=== PATIENT | female | born 1955 | race Caucasian/White ===

== ENCOUNTER 2017-03-28 16:11 | Inpatient (IN) | payer BC ==
[2017-03-28] MEDS ORDERED: NITROGLYCERIN OINT 1 INCH/GM PACKET TOPICAL STA (16:25)
[2017-03-28] MEDS ORDERED: ASPIRIN 81 MG CHEW PO STA (16:25)
--- NOTE | 2017-03-28 16:36 | ED ---
Chest Pain HPI - General Chief Complaint: Chest Pain Stated Complaint: chest pain Time Seen by Provider: 03/28/17 16:14 Source: patient, EMS Mode of arrival: EMS Limitations: no limitations - History of Present Illness Initial Comments: This 61-year-old white female presents with a complaint of some chest pain. This was in the midsternal to lower sternal region and described as a burning type sensation that radiated to both shoulders. She states that she was very clammy when it occurred but there is no shortness of breath or palpitations. She apparently was undergoing some physical therapy when this occurred. She was not exerting herself whatsoever. It also occurred one week ago while at primary care physician's office. She just had a stress test approximately one week ago with unknown results. She is scheduled to have a echocardiogram done tomorrow. She denies any leg pain or swelling or history of DVT or PE. She denies any known previous cardiac disease, coronary artery disease, myocardial infarction, or cardiac stents. She's never had a heart catheterization. She denies any other complaints or modifying factors. Her symptoms have resolved at this point in time. - Related Data Home Medications Medication Instructions Recorded Confirmed DULoxetine HCL [Duloxetine HCl] 60 mg PO HS 08/19/14 03/28/17 Metoprolol Succinate [Toprol XL] 12.5 mg PO BID 08/19/14 03/28/17 Ergocalciferol [Vitamin D2 50,000 unit PO MO 03/23/15 03/28/17 (DRISDOL)] Acamprosate Calcium [Campral] 333 mg PO TID 03/28/17 03/28/17 Diphenox-Atrop 2.5-0.025 mg 1 tab PO BID PRN 03/28/17 03/28/17 [Lomotil] Famotidine [Pepcid] 20 mg PO DAILY 03/28/17 03/28/17 Gabapentin 800 mg PO TID 03/28/17 03/28/17 Losartan Unknown Dose 1 tab PO DAILY 03/28/17 03/28/17 Previous Rx's Medication Instructions Recorded Cyclobenzaprine [Flexeril] 10 mg PO TID PRN #90 tab 03/31/15 Allergies Allergy/AdvReac Type Severity Reaction Status Date / Time MRI CONTRAST AdvReac FLUSHING Uncoded 03/28/17 16:25 Review of Systems ROS Statement: Those systems with pertinent positive or pertinent negative responses have been documented in the HPI. ROS Other: All systems not noted in ROS Statement are negative. Past Medical History Past Medical History: Chest Pain / Angina, CVA/TIA, GERD/Reflux Additional Past Medical History / Comment(s): "DUMPING SYNDROME" URINARY INCONTINENCE, STATES TIA X3 History of Any Multi-Drug Resistant Organisms: None Reported Past Surgical History: Bariatric Surgery, Hysterectomy Additional Past Surgical History / Comment(s): HX GASTRIC BYPASS, PAIN CLINIC PROCEDURE Past Anesthesia/Blood Transfusion Reactions: No Reported Reaction Additional Past Anesthesia/Blood Transfusion Reaction / Comment(s): REQUIRE ABOVE AVERAGE LIDOCAINE DOSE. Past Psychological History: No Psychological Hx Reported Smoking Status: Never smoker Past Alcohol Use History: Occasional Past Drug Use History: None Reported - Past Family History Father Family Medical History: Diabetes Mellitus, Myocardial Infarction ([place]) Mother Family Medical History: Myocardial Infarction ([place]) General Exam - General Exam Comments Initial Comments: GENERAL: The patient is well nourished and well hydrated. VITAL SIGNS: Heart rate, blood pressure, respiratory rate reviewed as recorded in nurse's notes. EYES: Pupils are round and reactive. Extraocular movements are intact. No conjunctival / lid redness or swelling. ENT: No external evidence of injury, swelling, or ecchymosis. Airway is patent. Throat is clear. NECK: Nontender. No swelling or evidence of injury. No subcutaneous emphysema. Trachea is midline. No thyroid mass. HEART: Regular rate and rhythm. Good peripheral pulses. There is no leg pain, swelling, or edema. LUNGS/CHEST: Breath sounds clear and equal bilaterally. No rales, rhonchi, or wheezes. No ecchymosis, subcutaneous emphysema, or tenderness. ABDOMEN: Abdomen soft without tenderness. No palpable masses or organomegaly. No peritoneal signs. No abdominal wall swelling or ecchymosis. EXTREMITIES: No extremity tenderness. Normal muscle tone and function. No thoracolumbar tenderness. NEUROLOGIC: Sensation is grossly intact. Cranial nerve exam reveals face is symmetrical, tongue is midline, speech is clear. SKIN: No abrasions or ecchymosis is noted. No induration or masses noted. PSYCHIATRIC: Alert and oriented. Appropriate behavior and judgment. Limitations: no limitations Course Vital Signs 03/28/17 03/28/17 03/28/17 16:22 16:37 17:13 Temperature 98.8 F Pulse Rate 78 71 71 Respiratory 18 16 18 Rate Blood Pressure 144/88 144/88 152/86 O2 Sat by Pulse 98 100 100 Oximetry Chest Pain MDM - MDM The patient was seen and examined. All diagnostics were reviewed. The EKG shows a normal sinus rhythm at a rate of 72. There is no acute ST-T wave changes identified. The [place] interval is 116, QRS duration is 78, and the QTc interval is 411. She does receive aspirin as well as Nitropaste. She is feeling well on recheck. She states that she is hungry and is fed. The blood sugar was slightly low at 72 and she states that she had not ate anything for the entire day. The remainder of labs are unremarkable. The x-ray does not show any acute process. Is felt as though she benefit from admission to rule out the possibility of acute coronary syndrome. She is agreeable with this plan. Case will be discussed with internal medicine in the near future. Disposition Clinical Impression: Chest pain, Unstable angina Disposition: ADMITTED IP TO THIS [facility] Condition: Fair Time of Disposition: 18:00 Decision Date: 03/28/17 Decision Time: 18:00
[2017-03-28 16:50] LABS: Basophils % (A) 0 %; CH 33.4; CHCM 32.3; Eosinophils # (A) 0.2 k/uL (0-0.7); Eosinophils % (A) 2 %; HCT 41.8 % (34.0-46.0); HDW 1.81; HGB 13.6 gm/dL (11.4-16.0); Luc # (Auto) 0.13; Luc % (Auto) 2; Lymphocytes # (A) 1.3 k/uL (1.0-4.8); Lymphocytes % (A) 15 %; MCH 33.8 pg (25.0-35.0); MCHC 32.5 g/dL (31.0-37.0); MCV 103.7 fL (80.0-100.0); Macrocytosis Moderate; Monocytes # (A) 0.4 k/uL (0-1.0); Monocytes % (A) 5 %; Neutrophils # (A) 6.9 k/uL (1.3-7.7); Neutrophils % (A) 77 %; RBC 4.03 m/uL (3.80-5.40); RDW 15.5 % (11.5-15.5); WBC 8.9 k/uL (3.8-10.6); WBC (Perox) 8.89
[2017-03-28 16:57] LABS: ALT 42 U/L (9-52); AST 41 U/L (14-36); Alkaline Phosphatase 154 U/L (38-126); Anion Gap 6 mmol/L; Blood Urea Nitrogen 14 mg/dL (7-17); Calcium 8.9 mg/dL (8.4-10.2); Carbon Dioxide 30 mmol/L (22-30); Chloride 104 mmol/L (98-107); Glucose 72 mg/dL (74-99); Non-African American GFR(MDRD) >60 (>60 ml/min/1.73 sqM); Potassium 4.8 mmol/L (3.5-5.1); Sodium 140 mmol/L (137-145); Total Bilirubin 0.8 mg/dL (0.2-1.3); Total Protein 6.5 g/dL (6.3-8.2)
[2017-03-28 16:58] LABS: Prothrombin Time 9.8 sec (9.0-12.0)
[2017-03-28 17:05] LABS: Partial Thromboplastin Time 21.3 sec (22.0-30.0)
--- NOTE | 2017-03-28 17:08 | XR ---
EXAMINATION TYPE: XR chest 2V DATE OF EXAM: 03/28/2017 COMPARISON: 03/20/2015 HISTORY: Chest pain TECHNIQUE: Frontal and lateral views of the chest are obtained. FINDINGS: Heart and mediastinum are within normal limits. Lungs are clear of consolidation. There ar e no hilar masses. There is no pleural effusion. There are chest leads. IMPRESSION: No active cardiopulmonary disease. No change.
[2017-03-28 17:13] LABS: Creatine Kinase 49 U/L (30-135)
[2017-03-28 17:26] LABS: Creatine Kinase MB 1.2 ng/mL (0.0-2.4); Troponin I <0.012 ng/mL (0.000-0.034)
[2017-03-28] MEDS ORDERED: HEPARIN SODIUM,PORCINE 5,000 UNIT/ML 1 ML VIAL IV PRN (18:02)
[2017-03-28] MEDS ORDERED: HEPARIN SODIUM,PORCINE 5,000 UNIT/ML 1 ML VIAL IV ONE (18:02)
[2017-03-28] MEDS ORDERED: NITROGLYCERIN SL TABS 0.4 MG TAB SUBLINGUAL PRN (18:02)
[2017-03-28] MEDS ORDERED: DIPHENOX-ATROP 2.5-0.025 MG 1 EACH TAB PO PRN (18:05)
[2017-03-28] MEDS ORDERED: HEPARIN SODIUM,PORCINE/D5W PMX 25,000 UNIT in DEXTROSE/WATER 1 500ML.BAG IV SCH (18:15)
[2017-03-28 20:13] VITALS: BMI 32.8
[2017-03-28] MEDS: DULoxetine HCL 60 MG CAPSULE.DR PO SCH (21:21)
[2017-03-28] MEDS: METOPROLOL SUCCINATE (ER) 25 MG TAB.ER.24H PO SCH (21:22)
[2017-03-28] MEDS: GABAPENTIN 400 MG CAP PO SCH (21:23)
[2017-03-28] MEDS: CYCLOBENZAPRINE 10 MG TAB PO PRN (21:23)
[2017-03-28] MEDS: ACAMPROSATE CALCIUM 333 MG TABLET.DR PO SCH (22:22)
[2017-03-29 00:53] LABS: Creatine Kinase 33 U/L (30-135)
[2017-03-29 01:06] LABS: Creatine Kinase MB 0.8 ng/mL (0.0-2.4); Troponin I <0.012 ng/mL (0.000-0.034)
[2017-03-29] MEDS: NITROGLYCERIN OINT 1 INCH/GM PACKET TOPICAL SCH ×4 (01:19→18:21)
[2017-03-29 05:06] LABS: Mean Platelet Volume 7.7
[2017-03-29 05:26] LABS: Creatine Kinase 29 U/L (30-135)
[2017-03-29 05:39] LABS: Creatine Kinase MB 0.8 ng/mL (0.0-2.4); Troponin I <0.012 ng/mL (0.000-0.034)
[2017-03-29 07:02] LABS: Cholesterol 226 mg/dL (<200); Triglycerides 80 mg/dL (<150)
[2017-03-29 07:09] LABS: HDL Cholesterol 166 mg/dL (40-60)
[2017-03-29] MEDS: ACAMPROSATE CALCIUM 333 MG TABLET.DR PO SCH ×3 (08:46→22:15)
[2017-03-29] MEDS: GABAPENTIN 400 MG CAP PO SCH ×3 (08:46→21:25)
[2017-03-29] MEDS ORDERED: FAMOTIDINE 20 MG TAB PO SCH (09:00)
[2017-03-29] MEDS ORDERED: ASPIRIN 325 MG TAB PO SCH (09:00)
[2017-03-29] MEDS: METOPROLOL SUCCINATE (ER) 25 MG TAB.ER.24H PO SCH ×2 (09:51→21:24)
--- NOTE | 2017-03-29 10:16 | ECHOF ---
Referral Reason: MEASUREMENTS -------- HEIGHT: 162.6 cm WEIGHT: 83.9 kg BP: IVSd: 1.1 cm (0.6 - 1.1) LVIDd: 4.3 cm (3.9 - 5.3) LVPWd: 0.9 cm (0.6 - 1.1) IVSs: 1.4 cm LVIDs: 3.3 cm LVPWs: 1.2 cm LAESV Index (A-L): 55.28 ml/m Ao Diam: 2.8 cm (2.0 - 3.7) AV Cusp: 1.8 cm (1.5 - 2.6) LA Diam: 4.3 cm (2.7 - 3.8) MV EXCURSION: 18.742 mm (> 18.000) MV EF SLOPE: 95 mm/s (70 - 150) EPSS: 0.4 cm MV E Ubaldo: 0.94 m/s MV DecT: 165 ms MV A Ubaldo: 1.02 m/s MV E/A Ratio: 0.92 RAP: 5.00 mmHg RVSP: 34.67 mmHg FINDINGS -------- Sinus rhythm. This was a technically good study. The left ventricular size is normal. Left ventricular wall thickness is normal. Overall left ventricular systolic function is normal with, an EF between 55 - 60 %. The right ventricle is normal in size and function. LA is severely dilated >40 ml/m2 The right atrium is normal in size. Aneurysmal Interatrial septum. The aortic valve is trileaflet, and appears structurally normal. No aortic stenosis or regurgitation. The mitral valve is normal. Mild mitral regurgitation is present. Mild tricuspid regurgitation present. There is no evidence of pulmonary hypertension. The right ventricular systolic pressure, as measured by Doppler, is 34.67mmHg. There is no pulmonic regurgitation present. The aortic root size is normal. There is no pericardial effusion. CONCLUSIONS -------- 1. Sinus rhythm. 2. There is no pulmonic regurgitation present. 3. The aortic root size is normal. 4. There is no pericardial effusion. 5. This was a technically good study. 6. Left ventricular wall thickness is normal. 7. Overall left ventricular systolic function is normal with, an EF between 55 - 60 %. 8. LA is severely dilated >40 ml/m2 9. Aneurysmal Interatrial septum. 10. The aortic valve is trileaflet, and appears structurally normal. No aortic stenosis or regurgitation. 11. Mild mitral regurgitation is present. 12. Mild tricuspid regurgitation present. OUTSIDE [employer]REL LAT[employer] OPERATOR: Pallavi Lucero RDCS
[2017-03-29] MEDS: LOSARTAN 50 MG TAB PO SCH (12:24)
[2017-03-29] MEDS ORDERED: ASPIRIN 325 MG TAB PO STA (14:56)
[2017-03-29] MEDS ORDERED: ALPRAZolam 0.5 MG TAB PO PRN (14:56)
[2017-03-29] MEDS ORDERED: ALPRAZolam 0.25 MG TAB PO PRN (14:56)
[2017-03-29] MEDS ORDERED: ATORVASTATIN 80 MG TAB PO STA (14:56)
--- NOTE | 2017-03-29 15:51 | P.HPIM ---
History of Present Illness H&P Date: 03/29/17 Chief Complaint: Chest pain This is a 61-year-old female with past medical history noted below presented to the emergency room with worsening chest pain. Patient said that her symptoms started approximately a week ago initially with a burning sensation in the middle of her chest. She was evaluated by her primary care physician at that time and underwent a cardiac stress test that results were still pending. Yesterday she noted that the pain is different in nature and it was more sharp and 10 out of 10 in severity. She said that her pain was persistent approximately for 30 minutes. This was not associated with exertion. Patient denies dizziness, lightheadedness, diaphoresis, or nausea. She was evaluated in the emergency room and twelve-lead EKG showed no acute ischemic changes. Patient was placed in the observation unit. Serial troponin was negative 3 sets. She was seen and evaluated by cardiology and first cardiac stress test obtained from the outpatient setting was reviewed by the data analytics analyst and was found to be ordered online. She is scheduled for left heart catheterization tomorrow. Review of Systems Review of system: 14 points review of systems were obtained and were negative except to what were mentioned in the HPI. Past Medical History Past Medical History: Chest Pain / Angina, CVA/TIA, GERD/Reflux, Osteoarthritis (OA) Additional Past Medical History / Comment(s): "DUMPING SYNDROME" URINARY INCONTINENCE, STATES TIA X3 History of Any Multi-Drug Resistant Organisms: None Reported Past Surgical History: Bariatric Surgery, Cholecystectomy, Hysterectomy Additional Past Surgical History / Comment(s): HX GASTRIC BYPASS, PAIN CLINIC PROCEDURE Past Anesthesia/Blood Transfusion Reactions: No Reported Reaction Additional Past Anesthesia/Blood Transfusion Reaction / Comment(s): REQUIRE ABOVE AVERAGE LIDOCAINE DOSE. Past Psychological History: No Psychological Hx Reported Smoking Status: Former smoker Past Alcohol Use History: Occasional Past Drug Use History: None Reported - Past Family History Father Family Medical History: Diabetes Mellitus, Myocardial Infarction ([place]) Mother Family Medical History: Cancer, Myocardial Infarction ([place]) Medications and Allergies Home Medications Medication Instructions Recorded Confirmed Type DULoxetine HCL [Duloxetine HCl] 60 mg PO HS 08/19/14 03/28/17 History Metoprolol Succinate [Toprol XL] 12.5 mg PO BID 08/19/14 03/28/17 History Ergocalciferol [Vitamin D2 50,000 unit PO MO 03/23/15 03/28/17 History (DRISDOL)] Acamprosate Calcium [Campral] 333 mg PO TID 03/28/17 03/28/17 History Diphenox-Atrop 2.5-0.025 mg 1 tab PO BID PRN 03/28/17 03/28/17 History [Lomotil] Famotidine [Pepcid] 20 mg PO DAILY 03/28/17 03/28/17 History Gabapentin 800 mg PO TID 03/28/17 03/28/17 History Losartan Potassium [Cozaar] 50 mg PO DAILY 03/29/17 03/29/17 History Allergies Allergy/AdvReac Type Severity Reaction Status Date / Time MRI CONTRAST AdvReac FLUSHING Uncoded 03/28/17 16:25 Physical Exam Vitals: Vital Signs Temp Pulse Pulse Resp BP BP Pulse Ox 03/29/17 11:32 97.6 F 73 17 130/87 95 03/29/17 07:36 97.5 F L 82 18 130/86 96 03/29/17 04:00 79 16 03/29/17 03:45 98.5 F 96 16 141/83 97 03/29/17 00:00 76 16 03/28/17 23:23 98.9 F 80 16 123/73 95 03/28/17 22:08 91 18 03/28/17 19:39 98.0 F 100 18 120/63 98 03/28/17 19:06 98.1 F 94 18 118/64 99 03/28/17 17:13 71 18 152/86 100 03/28/17 16:37 71 16 144/88 100 03/28/17 16:22 98.8 F 78 18 144/88 98 Intake and Output 03/29/17 03/29/17 03/29/17 06:59 14:59 22:59 Intake Total 125.667 680 Balance 125.667 680 Intake: Intake, IV Titration 125.667 Amount Heparin Sodium,Porcine/ 125.667 D5w Pmx 25,000 unit In Dextrose/Water 1 500ml. bag @ 11.92 UNITS/KG/HR 20 mls/hr IV .Q24H [facility] Rx #:[id number] Oral 680 Other: Voiding Method Toilet # Voids 1 General: The patient is awake and alert, in no distress Eye: there is normal conjunctiva bilaterally. Neck: The neck is supple, there is no JVD. Cardiovascular: Normal S1-S2, no S3-S4, no murmurs. Respiratory: Lungs clear to auscultation bilaterally Gastrointestinal: Abdomen is soft, nontender Musculoskeletal: There is no pedal edema. Neurological:. Speech is normal. Skin: Skin is warm and dry Results CBC & Chem 7: 03/29/17 04:55 03/28/17 16:35 Labs: Abnormal Lab Results - Last 24 Hours (Table) 03/28/17 03/28/17 03/28/17 Range/Units 16:35 16:35 16:35 MCV 103.7 H (80.0-100.0) fL APTT 21.3 L (22.0-30.0) sec Glucose 72 L (74-99) mg/dL AST 41 H (14-36) U/L Alkaline Phosphatase 154 H (38-126) U/L Total Creatine Kinase (30-135) U/L Cholesterol (<200) mg/dL HDL Cholesterol (40-60) mg/dL 03/29/17 03/29/17 03/29/17 Range/Units 00:01 04:55 04:55 MCV (80.0-100.0) fL APTT 36.4 H (22.0-30.0) sec Glucose (74-99) mg/dL AST (14-36) U/L Alkaline Phosphatase (38-126) U/L Total Creatine Kinase 29 L (30-135) U/L Cholesterol 226 H (<200) mg/dL HDL Cholesterol 166 H (40-60) mg/dL 03/29/17 Range/Units 08:22 MCV (80.0-100.0) fL APTT 45.2 H (22.0-30.0) sec Glucose (74-99) mg/dL AST (14-36) U/L Alkaline Phosphatase (38-126) U/L Total Creatine Kinase (30-135) U/L Cholesterol (<200) mg/dL HDL Cholesterol (40-60) mg/dL Thrombosis Risk Factor Assmnt - Choose All That Apply Each Risk Factor Represents 2 Points: Age 61-74 years Thrombosis Risk Factor Assessment Total Risk Factor Score: 2 Thrombosis Risk Factor Assessment Level: Low Risk Assessment and Plan Plan: 1. Chest pain, most typical and atypical features. 12 leads EKG showed no acute ischemic changes. Troponin negative 3 sets. Outpatient cardiac stress test reviewed by the data analytics analyst and was found to be borderline positive. Patient scheduled for left heart catheterization tomorrow. 2. Essential hypertension: Blood pressure well-controlled 3. Mixed hyperlipidemia, diet controlled. LDL 44. Patient was given 1 dose of Lipitor 80 today. 4. Major depressive disorder Today, I reviewed her medication list and lab work results. Continue current regimen. Awaiting left heart catheterization tomorrow. Repeat lab work in the morning.
[2017-03-29] MEDS: DULoxetine HCL 60 MG CAPSULE.DR PO SCH (21:23)
[2017-03-29] MEDS: CYCLOBENZAPRINE 10 MG TAB PO PRN (21:25)
--- NOTE | 2017-03-29 21:29 | CONS ---
This is a 61-year-old lady who presented to the hospital with chest discomfort. She was not doing anything physically active and developed some pressure in the chest and came into the hospital. Her troponins are normal. She is resting comfortably. She describes her symptoms as a feeling of discomfort and pressure across the chest that comes on spontaneously, not necessarily with activity. However, at the time of my evaluation her symptoms have resolved. She is resting comfortably without symptoms. She does have history of hypertension, hypercholesterolemia. About a week ago she had a stress test, and I obtained the stress test from Dr. Brianne Snyder's office. There is evidence on a Persantine stress test of a small- to moderate-sized irreversible defect in the apical septal portion suggestive of ischemia. I saw the patient first, and several hours later I got the nuclear scan. My dictation is after the knowledge of the nuclear scan. Quality of patient's symptoms does not suggest angina. She is hemodynamically stable and resting. PAST MEDICAL HISTORY: 1. Hypertension. 2. Hyperlipidemia. 3. No evidence of prior myocardial infarction or CVA. Medications at home include: 1. Cozaar. 2. Pepcid. 3. Flexeril. 4. Vitamin supplements. ALLERGIES: MRI CONTRAST. On examination, her blood pressure is 130/70. Pulse rate is 70 per minute, regular. HEENT: Unremarkable. Fundus was not examined by me. Neck is supple. No JVD. I do not hear a carotid bruit. There is no thyromegaly. Heart exam reveals S1, S2 heard normally without a rub, murmur or gallops. Lungs are clear. Abdomen is soft, non-tender. Lower extremities reveal normal pulses; no edema. Central nervous system is normal. EKG reveals sinus mechanism. No acute changes. Laboratory data reveal normal troponins. IMPRESSION: 1. Chest pain syndrome with a positive stress test. Cannot exclude this being unstable angina. 2. Hypertension. 3. Hyperlipidemia. RECOMMENDATIONS: I am recommending coronary angiography. Risks, benefits, options and rationale were explained. Patient understands all details and wishes to proceed with the procedure, which will be scheduled for tomorrow at 7: 30 a.m. [facility]
[2017-03-30] MEDS ORDERED: SODIUM CHLORIDE 0.9% 1,000 ML in EMPTY BAG 1 BAG IV ONE (02:00)
[2017-03-30] MEDS: NITROGLYCERIN OINT 1 INCH/GM PACKET TOPICAL SCH ×2 (06:11→06:39)
[2017-03-30] MEDS: ACAMPROSATE CALCIUM 333 MG TABLET.DR PO SCH ×2 (06:47→15:30)
[2017-03-30] MEDS: GABAPENTIN 400 MG CAP PO SCH ×2 (06:48→15:30)
[2017-03-30] MEDS: LOSARTAN 50 MG TAB PO SCH (06:49)
[2017-03-30] MEDS: METOPROLOL SUCCINATE (ER) 25 MG TAB.ER.24H PO SCH (06:50)
[2017-03-30 07:06] LABS: Glucose,Whole Blood 99 mg/dL (75-99)
[2017-03-30 07:24] LABS: Basophils % (A) 1 %; CH 33.3; CHCM 31.8; Eosinophils # (A) 0.1 k/uL (0-0.7); Eosinophils % (A) 2 %; HCT 40.7 % (34.0-46.0); HDW 1.85; Luc % (Auto) 2; Lymphocytes # (A) 0.9 k/uL (1.0-4.8); Lymphocytes % (A) 20 %; MCH 33.6 pg (25.0-35.0); MCHC 32.1 g/dL (31.0-37.0); MCV 104.9 fL (80.0-100.0); Macrocytosis Moderate; Mean Platelet Volume 7.8; Monocytes # (A) 0.3 k/uL (0-1.0); Monocytes % (A) 6 %; Neutrophils # (A) 3.1 k/uL (1.3-7.7); Neutrophils % (A) 69 %; RBC 3.88 m/uL (3.80-5.40); RDW 15.8 % (11.5-15.5); WBC 4.5 k/uL (3.8-10.6); WBC (Perox) 4.97
[2017-03-30] MEDS ORDERED: PANTOPRAZOLE 40 MG TABLET PO SCH (07:30)
[2017-03-30] MEDS ORDERED: MIDAZOLAM 2 MG/2 ML VIAL ONE (07:42)
[2017-03-30] MEDS ORDERED: HEPARIN SODIUM 1,000 UN/ML (10ML VL) ONE (07:42)
[2017-03-30] MEDS ORDERED: diphenhydrAMINE 50 MG/ML 1 ML VIAL ONE (07:42)
[2017-03-30] MEDS ORDERED: VERAPAMIL 2.5 MG/ML 2 ML AMP ONE (07:42)
[2017-03-30 07:48] LABS: Anion Gap 8 mmol/L; Blood Urea Nitrogen 14 mg/dL (7-17); Calcium 8.9 mg/dL (8.4-10.2); Carbon Dioxide 28 mmol/L (22-30); Chloride 103 mmol/L (98-107); Glucose 96 mg/dL (74-99); Non-African American GFR(MDRD) >60 (>60 ml/min/1.73 sqM); Potassium 4.1 mmol/L (3.5-5.1); Sodium 139 mmol/L (137-145)
[2017-03-30] MEDS ORDERED: MIDAZOLAM 2 MG/2 ML VIAL IVP ONE (08:06)
[2017-03-30] MEDS ORDERED: IV FLUID CONTINUATION 650 ML IV ONE (08:06)
[2017-03-30] MEDS ORDERED: diphenhydrAMINE 50 MG/ML 1 ML VIAL IVP ONE (08:06)
[2017-03-30] MEDS: LIDOCAINE 2% INJ 20 MG/ML SQ ONE ×2 (08:09→08:17)
[2017-03-30] MEDS: VERAPAMIL SYRINGE (5 MG/10 ML) INTRAARTER ONE ×2 (08:11→08:33)
[2017-03-30] MEDS ORDERED: VERAPAMIL SYRINGE (5 MG/10 ML) INTRAARTER ONE (08:12)
[2017-03-30] MEDS ORDERED: HEPARIN SODIUM 1,000 UN/ML (10ML VL) IV ONE (08:13)
[2017-03-30] MEDS ORDERED: IOHEXOL 350 MG/ML 100 ML BOTTLE INJ ONE (08:33)
[2017-03-30] MEDS ORDERED: RX INFO: IV CONTRAST WAS GIVEN 1 EACH MISC MISCELLANE PRN (08:45)
[2017-03-30] MEDS ORDERED: SODIUM CHLORIDE 0.9% 1,000 ML IV SCH (08:45)
[2017-03-30] MEDS ORDERED: METOPROLOL SUCCINATE (ER) 25 MG TAB.ER.24H PO SCH (09:00)
[2017-03-30] MEDS ORDERED: ASPIRIN 81 MG CHEW PO SCH (09:00)
[2017-03-30] MEDS ORDERED: ATORVASTATIN 10 MG TAB PO SCH (09:00)
--- NOTE | 2017-03-30 11:19 | PN ---
Mrs. Wynn was seen by me today, had a cardiac catheterization from the right radial approach which was unsuccessful because of extreme tortuosity from right femoral approach. Standard Marjorie catheters were used. No significant obstructive CAD. LV function is well preserved by echo. Findings were discussed with the patient at length. No family available. She will be discharged today around 7:00 p.m. if she is stable. Cardiac cath findings as well as discharge instructions were given and note to the primary care physician dictated as well. SHAUNNA
--- NOTE | 2017-03-30 11:22 | P.DS ---
Providers Date of admission: 03/30/17 08:51 Expected date of discharge: 03/30/17 Attending physician: Vineet Saul Consults: 03/28/17 18:02 Consult Physician Urgent Consulting Provider: Luke Coronado Consult Reason/Comments: cp Do you want consulting provider notified?: Yes Primary care physician: Brianne Snyder [facility] Course: 1. Chest pain, most typical and atypical features. 12 leads EKG showed no acute ischemic changes. Troponin negative 3 sets. Outpatient cardiac stress test reviewed by the vegetable ii farmworker and was found to be borderline positive. Patient scheduled for left heart catheterization that showed patent coronary arteries with no significant stenosis. Patient was cleared by cardiology for discharge today. Awaiting former heart cath report 2. Essential hypertension: Blood pressure well-controlled 3. Mixed hyperlipidemia, diet controlled. LDL 44. 4. Major depressive disorder Patient Condition at Discharge: Fair Plan - Discharge Summary New Discharge Prescriptions: New Metoprolol Succinate (ER) [Toprol XL] 25 mg PO DAILY #30 tab Continue DULoxetine HCL [Duloxetine HCl] 60 mg PO HS Ergocalciferol [Vitamin D2 (DRISDOL)] 50,000 unit PO MO Cyclobenzaprine [Flexeril] 10 mg PO TID PRN #90 tab PRN Reason: Muscle Spasm Famotidine [Pepcid] 20 mg PO DAILY Acamprosate Calcium [Campral] 333 mg PO TID Diphenox-Atrop 2.5-0.025 mg [Lomotil] 1 tab PO BID PRN PRN Reason: Loose Stool Gabapentin 800 mg PO TID Losartan Potassium [Cozaar] 50 mg PO DAILY Discontinued Metoprolol Succinate [Toprol XL] 12.5 mg PO BID Discharge Medication List DULoxetine HCL [Duloxetine HCl] 60 mg PO HS 08/19/14 [History] Ergocalciferol [Vitamin D2 (DRISDOL)] 50,000 unit PO MO 03/23/15 [History] Cyclobenzaprine [Flexeril] 10 mg PO TID PRN #90 tab 03/31/15 [Rx] Acamprosate Calcium [Campral] 333 mg PO TID 03/28/17 [History] Diphenox-Atrop 2.5-0.025 mg [Lomotil] 1 tab PO BID PRN 03/28/17 [History] Famotidine [Pepcid] 20 mg PO DAILY 03/28/17 [History] Gabapentin 800 mg PO TID 03/28/17 [History] Losartan Potassium [Cozaar] 50 mg PO DAILY 03/29/17 [History] Metoprolol Succinate (ER) [Toprol XL] 25 mg PO DAILY #30 tab 03/30/17 [Rx] Follow up Appointment(s)/Referral(s): Elidia Mar MD [STAFF PHYSICIAN] - 04/05/17 8:15 am Discharge Disposition: HOME SELF-CARE
[2017-03-30 12:39] VITALS: PULSE 66
--- NOTE | 2017-03-30 13:13 | CC ---
DATE OF SERVICE: 03/30/2017 PROCEDURE: Left heart catheterization and coronary angiography. PERFORMED BY: Dr. Lynn Mar CLINICAL INFORMATION: Mrs. Shyann Wynn is a 61-year-old lady with a history of hypertension, hypercholesterolemia who lives part-time in [facility] and part- time in [place], came into the hospital with chest pain which seemed somewhat atypical but had a stress test which revealed evidence of ischemia. This stress test was performed a week ago at her primary care physician's office. In view of abnormal stress test, ongoing chest pain and risk factors, she was advised coronary angiography. The risk, benefits, options and rationale were discussed. PROCEDURE NOTE: Under local anesthesia and strict aseptic precautions, a 6 English introducer was placed in the right radial artery. I advanced a guidewire and tried to advance Ultimate 1 catheter but I noted that there was extreme tortuosity in the brachial artery and the axillary artery and therefore I abandoned the procedure and gained access from the right femoral approach under local anesthesia and strict aseptic precautions. Using standard Marjorie catheters, I performed coronary angiography and a Pigtail catheter was used to check pressures. LV gram was not performed. The sheath was taken out and manual compression applied and fem stop applied. The right radial site was addressed with a TR band as per protocol. Saturation of the fingers of the right hand was 96%. Patient tolerated the procedure well without complication. She received moderate conscious sedation with ( ) for a total duration of 45 minutes. CARDIAC CATHETERIZATION FINDINGS: The left ventricular end-diastolic pressure was about 10 to 12 mmHg without any gradient across the aortic valve. CORONARY ANGIOGRAPHY FINDINGS: RIGHT CORONARY ARTERY: A very dominant disease-free vessel that distally bifurcates into a good size PDA and PLV both of which have minor irregularity. No siginficant disease. RCA is therefore dominant and disease-free. LEFT MAIN CORONARY ARTERY: A short, patent, disease-free vessel that bifurcates into LAD and circumflex. LEFT ANTERIOR DESCENDING CORONARY ARTERY: A good caliber vessel, gives off 2 diagonal branches, several septal branches, runs all the way to the apex. The distal 1/4 of the vessel is somewhat small in caliber and tapers off towards the apex. No significant disease in the entire LAD system. LEFT POSTERIOR CIRCUMFLEX CORONARY ARTERY: Technically non-dominant vessel, gives off a good-size large obtuse marginal that runs laterally. Has no significant disease, has minor irregularities. LEFT VENTRICULOGRAM: This was not performed. FINAL IMPRESSION: This patient has a right dominant system, normal filling pressures, no significant obstructive coronary artery disease. LV pressures are normal but LV gram as not performed. RECOMMENDATION: Findings were discussed with the patient. No family was available. I am recommending continued medical therapy with risk factor modification. Patient will be placed on a very small dose of a statin medication in the form of atorvastatin 10 mg daily. AURICULAR DETOXIFICATION SPECIALIST control is optimal. She can be discharged later on today and see her primary care physician Dr. Brianne Snyder in the next week. I will see her in the office Monday at 8: 15 a.m. Discharge instructions regarding diet and activity were given. She will be on bedrest for 4 hours with a fem stop. Patient tolerated the procedure well without complications. SAHUNNA
--- NOTE | 2017-03-30 13:21 | MISC ---
DATE OF SERVICE: 03/30/[address] Snyder; Thank you for the opportunity to participate in the care of Mrs. Shyann Wynn. I am pleased to report to you that she does not have any significant obstructive CAD. Her stress test was a false positive. I have added a small dose of beta li and also atorvastatin for her hypertension and risk factor modification for hyperlipidemia. I have advised to follow with you in one week and I will be seeing her next Monday in the office. Thank you for your referral and please call for questions. With kindest regards. Sincerely yours, Jose Angel Harvey. SHAUNNA
[2017-03-30 16:07] VITALS: BP 144/92; RESP 18; TEMP 97.7
[2017-04-03] MEDS ORDERED: ERGOCALCIFEROL 50,000 UNIT CAP PO SCH (12:00)
== END 2017-03-30 18:20 | disposition home or self-care (01) | DRG 287 ==
LOC: EC 16:11 → 3OBS 18:02 → OBSVTOIN 03-30 08:51
PROVIDERS: ADMIT Internal Medicine; ATTEND Internal Medicine
PROC: B2111ZZ Fluoroscopy of Multiple Coronary Arteries using Low Osmolar Contrast (ICD-10-PCS; 2017-03-30)
PROC: B2151ZZ Fluoroscopy of Left Heart using Low Osmolar Contrast (ICD-10-PCS; 2017-03-30)
PROC: 4A023N7 Measurement of Cardiac Sampling and Pressure, Left Heart, Percutaneous Approach (ICD-10-PCS; principal; 2017-03-30 07:32)
DX: R07.89 Other chest pain (principal); I10 Essential (primary) hypertension; R94.39 Abnormal result of other cardiovascular function study; E78.00 Pure hypercholesterolemia, unspecified; K21.9 Gastro-esophageal reflux disease without esophagitis; E78.2 Mixed hyperlipidemia; F32.9 Major depressive disorder, single episode, unspecified; R32 Unspecified urinary incontinence; M19.90 Unspecified osteoarthritis, unspecified site; Z98.84 Bariatric surgery status; Z83.3 Family history of diabetes mellitus; Z87.891 Personal history of nicotine dependence; Z82.49 Family history of ischemic heart disease and other diseases of the circulatory system; Z79.899 Other long term (current) drug therapy; Z86.73 Personal history of transient ischemic attack (TIA), and cerebral infarction without residual deficits; Z86.79 Personal history of other diseases of the circulatory system; Z87.19 Personal history of other diseases of the digestive system; Z91.041 Radiographic dye allergy status; Z90.710 Acquired absence of both cervix and uterus; Z90.49 Acquired absence of other specified parts of digestive tract; Z80.9 Family history of malignant neoplasm, unspecified
CPT/HCPCS: 36415; 71020; 80048; 80053; 80061; 82550; 82553; 83735; 84484; 85025; 85049; 85610; 85730; 93005; 93306

== ENCOUNTER → 2017-04-14 | Outpatient (CLI) | payer BC ==
--- NOTE | 2017-04-17 11:49 | MM ---
Reason for exam: screening (asymptomatic). Last mammogram was performed 1 year ago. History: Patient is postmenopausal. Family history of breast cancer in mother at age 75. 2 benign excisional biopsies of the left breast. Took estrogen for 2 years. Took progesterone for 2 years. Physical Findings: A clinical breast exam by your physician is recommended on an annual basis and results should be correlated with mammographic findings. MG Screening Mammo w CAD Bilateral CC and MLO view(s) were taken. Prior study comparison: March 31, 2016, bilateral MG diagnostic mammo w CAD [place]. September 03, 2014, bilateral MG screening mammo w CAD. The breast tissue is heterogeneously dense. This may lower the sensitivity of mammography. Finding: There are typically benign calcifications in both breasts. No significant changes in finding since March 31, 2016 and September 03, 2014. ASSESSMENT: Benign, BI-RAD 2 RECOMMENDATION: Routine screening mammogram of both breasts in 1 year.
== END | disposition home or self-care (01) ==
LOC: RADMAMWWP 13:22
PROVIDERS: ATTEND Family Medicine
DX: Z12.31 Encounter for screening mammogram for malignant neoplasm of breast (principal)

== ENCOUNTER → 2018-05-09 | Outpatient (CLI) | payer BC ==
--- NOTE | 2018-05-10 14:53 | MM ---
Reason for exam: screening (asymptomatic). Last mammogram was performed 1 year and 1 month ago. History: Patient is postmenopausal. Family history of breast cancer in mother at age 75. 2 benign excisional biopsies of the left breast. Took estrogen for 2 years. Took progesterone for 2 years. Physical Findings: A clinical breast exam by your physician is recommended on an annual basis and results should be correlated with mammographic findings. MG Screening Mammo w CAD Bilateral CC and MLO view(s) were taken. Prior study comparison: April 14, 2017, bilateral MG screening mammo w CAD. March 31, 2016, bilateral MG diagnostic mammo w CAD [place]. The breast tissue is heterogeneously dense. This may lower the sensitivity of mammography. Focal asymmetry central lower left breast. This finding is changed when compared with previous exams. ASSESSMENT: Incomplete: need additional imaging evaluation, BI-RAD 0 RECOMMENDATION: Special view mammogram and ultrasound of the left breast. [facility] will attempt to contact patient to return for supplemental views and ultrasound.
== END | disposition home or self-care (01) ==
LOC: RADMAMWWP 14:45
PROVIDERS: ATTEND Family Medicine
DX: Z12.31 Encounter for screening mammogram for malignant neoplasm of breast (principal)
CPT/HCPCS: 77067

== ENCOUNTER → 2018-05-28 | Outpatient (CLI) | payer BC ==
--- NOTE | 2018-05-29 07:47 | MM ---
Reason for exam: follow-up at short interval from prior study. Last mammogram was performed 1 month ago. History: Patient is postmenopausal. Family history of breast cancer in mother at age 75. 2 benign excisional biopsies of the left breast. Took estrogen for 2 years. Took progesterone for 2 years. Physical Findings: Nurse did not find any significant physical abnormalities on exam. MG Work Up Mamm w CAD LT Spot compression CC, spot compression MLO, and LM view(s) were taken of the left breast. Prior study comparison: May 09, 2018, bilateral MG screening mammo w CAD. April 14, 2017, bilateral MG screening mammo w CAD. The breast tissue is heterogeneously dense. This may lower the sensitivity of mammography. The 7 o'clock asymmetric densities became less defined on additional views with appearance similar to older priors. 6 month follow up recommended. These results were verbally communicated with the patient and result sheet given to the patient on 05/28/18. ASSESSMENT: Probably benign, BI-RAD 3 RECOMMENDATION: Follow-up diagnostic mammogram of the left breast in 6 months.
== END | disposition home or self-care (01) ==
LOC: RADMAMWWP 13:52
PROVIDERS: ATTEND Family Medicine
DX: R92.8 Other abnormal and inconclusive findings on diagnostic imaging of breast (principal)
CPT/HCPCS: 77065

== ENCOUNTER → 2019-01-11 | Outpatient (CLI) | payer MEDICARE, OTHER ==
--- NOTE | 2019-01-11 11:21 | MM ---
Reason for exam: follow-up at short interval from prior study. Last mammogram was performed 8 months ago. History: Patient is postmenopausal. Family history of breast cancer in mother at age 75. 2 benign excisional biopsies of the left breast. Took estrogen for 2 years. Took progesterone for 2 years. Physical Findings: Nurse did not find any significant physical abnormalities on exam. MG 3D Diag Mammo W/Cad LT CC, MLO, and ML view(s) were taken of the left breast. Prior study comparison: May 28, 2018, left breast MG work up mamm w CAD LT. May 09, 2018, bilateral MG screening mammo w CAD. The breast tissue is heterogeneously dense. This may lower the sensitivity of mammography. There is chronic nodularity in the left breast. There is no discrete abnormality. These results were verbally communicated with the patient and result sheet given to the patient on 01/11/19. ASSESSMENT: Probably benign, BI-RAD 3 RECOMMENDATION: Follow-up diagnostic mammogram of both breasts in 6 months.
== END | disposition home or self-care (01) ==
LOC: RADMAMWWP 10:27
PROVIDERS: ATTEND Family Medicine
DX: R92.8 Other abnormal and inconclusive findings on diagnostic imaging of breast (principal)
CPT/HCPCS: 77065; G0279; 77061

== ENCOUNTER → 2019-07-24 | Outpatient (CLI) | payer MEDICARE, OTHER ==
--- NOTE | 2019-07-24 14:44 | MM ---
Reason for exam: follow-up at short interval from prior study. Last mammogram was performed 6 months ago. History: Patient is postmenopausal. Family history of breast cancer in mother at age 75. Benign excisional biopsy of the left breast, 1983. Took estrogen for 2 years. Took progesterone for 2 years. Physical Findings: Nurse did not find any significant physical abnormalities on exam. MG 3D Diag Mammo W/Cad [place] Bilateral CC and MLO view(s) were taken. XCCL view(s) were taken of the left breast. Prior study comparison: January 11, 2019, left breast MG 3d diag mammo w/cad LT. May 28, 2018, left breast MG work up mamm w CAD LT. The breast tissue is heterogeneously dense. This may lower the sensitivity of mammography. Benign appearing bilateral calcifications. No suspicious abnormality. Medial asymmetry at middle depth with possible superior or inferior correlate on MLO appears stable and improves on XCCL. These results were verbally communicated with the patient and result sheet given to the patient on 07/24/19. ASSESSMENT: Probably benign, BI-RAD 3 RECOMMENDATION: Follow-up diagnostic mammogram of both breasts in 1 year.
== END | disposition home or self-care (01) ==
LOC: RADMAMWWP 13:38
PROVIDERS: ATTEND Family Medicine
DX: R92.8 Other abnormal and inconclusive findings on diagnostic imaging of breast (principal)
CPT/HCPCS: 77066; G0279; 77062

== ENCOUNTER 2021-01-30 17:29 | Inpatient (IN) | payer MEDICARE ==
[2021-01-30] MEDS ORDERED: SODIUM CHLORIDE 0.9% 1,000 ML IV STA ×2 (18:06→21:53)
[2021-01-30 18:23] LABS: Anisocytosis Slight; Basophils % (A) 1 %; Eosinophils # (A) 0.1 k/uL (0-0.7); Eosinophils % (A) 2 %; HCT 35.8 % (34.0-46.0); HGB 12.1 gm/dL (11.4-16.0); Lymphocytes # (A) 1.4 k/uL (1.0-4.8); Lymphocytes % (A) 27 %; MCH 38.6 pg (25.0-35.0); MCHC 33.9 g/dL (31.0-37.0); MCV 113.9 fL (80.0-100.0); Macrocytosis Marked; Mean Platelet Volume 8.9; Monocytes # (A) 0.5 k/uL (0-1.0); Monocytes % (A) 10 %; Neutrophils # (A) 3.1 k/uL (1.3-7.7); Neutrophils % (A) 59 %; Platelet Count 220 k/uL (150-450); RBC 3.14 m/uL (3.80-5.40); RDW 16.5 % (11.5-15.5); WBC 5.3 k/uL (3.8-10.6)
[2021-01-30 18:37] LABS: Albumin 2.9 g/dL (3.5-5.0); Total Bilirubin 0.9 mg/dL (0.2-1.3); Total Protein 5.2 g/dL (6.3-8.2)
[2021-01-30 18:39] LABS: Potassium 4.9 mmol/L (3.5-5.1)
--- NOTE | 2021-01-30 18:40 | XR ---
EXAMINATION TYPE: XR chest 2V DATE OF EXAM: 01/30/2021 COMPARISON: NONE HISTORY: Weakness and fall. TECHNIQUE: Frontal and lateral views of the chest are obtained. FINDINGS: There is no focal air space opacity, pleural effusion, or pneumothorax seen. The cardiac silhouette size is within normal limits. The osseous structures are intact. IMPRESSION: No acute cardiopulmonary process.
[2021-01-30 18:42] LABS: Partial Thromboplastin Time 22.1 sec (22.0-30.0)
[2021-01-30 19:22] LABS: D-Dimer 0.82 mg/L FEU (<0.60)
[2021-01-30 19:47] LABS: Appearance,Urine Cloudy (Clear); Bacteria,Urine Many /hpf; Bilirubin,Urine Negative (Negative); Blood,Urine Negative (Negative); Color,Urine Yellow; Glucose,Urine (UA) Negative (Negative); Hyaline Casts,Urine 30 /lpf (0-2); Ketones,Urine Negative (Negative); Leukocyte Esterase,Urine Moderate (Negative); Mucus,Urine Rare /hpf; Nitrite,Urine Positive (Negative); PH, Urine 5.5 (5.0-8.0); Protein,Urine Negative (Negative); Squamous Epithelial Cell,Urine 3 /hpf (0-4); Urobilinogen,Urine <2.0 mg/dL (<2.0); WBC,Urine 30 /hpf (0-5)
--- NOTE | 2021-01-30 20:22 | ED ---
Weakness HPI <Eric Ferreira - Last Filed: 01/30/21 22:58> - General Source: patient Mode of arrival: EMS Limitations: physical limitation <Jorge Luis Jose - Last Filed: 01/30/21 23:11> - General Chief complaint: Weakness Stated complaint: Fall Time Seen by Provider: 01/30/21 17:55 - History of Present Illness Initial comments: 65-year-old female presents to emergency department with chief complaint of a fall. Patient reports feeling weak for the past 2 weeks with no significant improvement in symptoms. Patient reports she was out at a birthday [place] the [place]. States she was sitting on her walker and attempted to get up when she suddenly felt lightheaded and went to the ground but did not lose consciousness. Patient states this was a witnessed fall and she apparently hit her right thigh on the side of the table. Patient does report some pain in the lateral aspect of her right mid thigh. Patient reports prior to the fall she began feeling short of breath as well but denied any chest pain. She states that one of the bystanders was a shower enclosure installer who told her that she could possibly have A. fib. She states that once the ambulance arrived, they advised the patient had A. fib and brought her for evaluation. Patient reports she feels well now when laying flat but begins to feel lightheaded when she is up. She denies any head injuries. (Jorge Luis Jose) - Related Data Home Medications Medication Instructions Recorded Confirmed Furosemide [Lasix] 20 mg PO DAILY 01/30/21 01/30/21 Levothyroxine Sodium [Synthroid] 25 mcg PO DAILY 01/30/21 01/30/21 Losartan Potassium 100 mg PO DAILY 01/30/21 01/30/21 Multivitamins, Thera [Multivitamin 1 tab PO DAILY 01/30/21 01/30/21 (formulary)] Potassium Chloride ER [K-Dur 10] 10 meq PO DAILY 01/30/21 01/30/21 Previous Rx's Medication Instructions Recorded Metoprolol Succinate (ER) [Toprol 25 mg PO DAILY #30 tab 03/30/17 XL] Allergies Allergy/AdvReac Type Severity Reaction Status Date / Time MRI CONTRAST AdvReac FLUSHING Uncoded 01/30/21 17:36 Review of Systems ROS Other: All systems not noted in ROS Statement are negative. <Eric Ferreira - Last Filed: 01/30/21 22:58> ROS Other: All systems not noted in ROS Statement are negative. <Jorge Luis Jose - Last Filed: 01/30/21 23:11> ROS Statement: Those systems with pertinent positive or pertinent negative responses have been documented in the HPI. Past Medical History Past Medical History: Chest Pain / Angina, CVA/TIA, GERD/Reflux, Osteoarthritis (OA) Additional Past Medical History / Comment(s): "DUMPING SYNDROME" URINARY INCONTINENCE, TIA X3 History of Any Multi-Drug Resistant Organisms: None Reported Past Surgical History: Bariatric Surgery, Cholecystectomy, Hysterectomy Additional Past Surgical History / Comment(s): HX GASTRIC BYPASS, PAIN CLINIC P ROCEDURE Past Anesthesia/Blood Transfusion Reactions: No Reported Reaction Additional Past Anesthesia/Blood Transfusion Reaction / Comment(s): REQUIRE ABOVE AVERAGE LIDOCAINE DOSE. Past Psychological History: No Psychological Hx Reported Smoking Status: Never smoker Past Alcohol Use History: Daily Past Drug Use History: None Reported - Past Family History Father Family Medical History: Diabetes Mellitus, Myocardial Infarction ([place]) Mother Family Medical History: Cancer, Myocardial Infarction ([place]) <Jorge Luis Jose - Last Filed: 01/30/21 23:11> General Exam Limitations: physical limitation General appearance: alert, in no apparent distress, obese Head exam: Present: atraumatic, normocephalic, normal inspection Eye exam: Present: normal appearance, PERRL, EOMI Pupils: Present: normal accommodation ENT exam: Present: normal exam, normal oropharynx, mucous membranes moist, TM's normal bilaterally, normal external ear exam Neck exam: Present: normal inspection, full ROM. Absent: tenderness Respiratory exam: Present: normal lung sounds bilaterally. Absent: respiratory distress, wheezes, rales, rhonchi, stridor, chest wall tenderness, accessory muscle use Cardiovascular Exam: Present: regular rate, normal rhythm, normal heart sounds. Absent: systolic murmur GI/Abdominal exam: Present: soft. Absent: distended, tenderness, guarding, rebound Extremities exam: Present: full ROM, tenderness (Small tenderness to touch and region), normal capillary refill, other (Palpable DP and PT bilaterally). Absent: normal inspection (Small regional ecchymosis noted on the lateral aspect of her right mid thigh), pedal edema, joint swelling, calf tenderness Back exam: Present: normal inspection, full ROM. Absent: tenderness, CVA tenderness (R), CVA tenderness (L) Neurological exam: Present: alert, oriented X3 Psychiatric exam: Present: normal affect, normal mood Skin exam: Present: warm, dry, intact, normal color <Jorge Luis Jose - Last Filed: 01/30/21 23:11> Course <Eric Ferreira - Last Filed: 01/30/21 22:58> Vital Signs 01/30/21 01/30/21 01/30/21 17:32 18:50 19:15 Temperature 98.4 F Pulse Rate 76 75 75 Respiratory 18 16 18 Rate Blood Pressure 99/72 92/67 81/55 O2 Sat by Pulse 100 100 100 Oximetry 01/30/21 01/30/21 01/30/21 20:11 20:44 21:30 Temperature Pulse Rate 73 73 73 Respiratory 18 18 18 Rate Blood Pressure 75/47 78/48 78/50 O2 Sat by Pulse 98 96 98 Oximetry - Reevaluation(s) Reevaluation #1: 01/30/21 22:58 Case, H&P, test results, ED management and patient's blood pressure readings were discussed with Dr. White (technical support intern). He states that given that the patient is lucid and mentating normally, he does not feel that the patient needs to go to the ICU simply because of her low blood pressure readings, and he recommends admitting the patient to the floor. Case has been discussed with Dr. Barber, and he has accepted hospital admission. (Eric Ferreira) EKG Findings - EKG Comments: EKG Findings:: Sinus arrhythmia, Q waves in lead 3. Ventricular rate 77, GA 118, QRS 70, QTC 463. <Jorge Luis Jose - Last Filed: 01/30/21 23:11> Procedures - [place] Protocol (Time Out) Nurse: Kelsea Dumont <Jorge Luis Jose - Last Filed: 01/30/21 23:11> Medical Decision Making - Lab Data Result diagrams: 01/30/21 18:13 01/30/21 18:13 <Eric Ferreira - Last Filed: 01/30/21 22:58> - Lab Data Result diagrams: 01/30/21 18:13 01/30/21 18:13 <Jorge Luis Jose - Last Filed: 01/30/21 23:11> - Medical Decision Making 65-year-old female presents to emergency department with chief complaint of a fall. Physical examination was unremarkable. There was no initial concern for sepsis. She did not fit SIRS criteria. CBC reveals no leukocytosis. Patient did have some complaints of shortness of breath prior to having her fall so a d-dimer was obtained which was slightly elevated 0.82. She did not have any complaints of chest pain or shortness of breath in the ED. CMP shows mild transaminitis. UA did show signs of urinary tract infection with positive nitrates and leukocyte esterase and white blood cells. Urine culture is pendin g. Initially, she did not have any concerns or urinary complaints. A lactic acid was subsequently obtained at 2.2. Patient was started on Rocephin. She was hypotensive even after 3 L of IV fluids. Troponins are negative. Case discussed wit Dr Okeefe who also evaluated the patient and is in agreement with treatment plan. Admitting physician is Dr. Barber Cardiology consult (Jorge Luis Jose) - Lab Data Lab Results 01/30/21 01/30/21 01/30/21 Range/Units 18:13 18:13 18:13 WBC 5.3 (3.8-10.6) k/uL RBC 3.14 L (3.80-5.40) m/uL Hgb 12.1 (11.4-16.0) gm/dL Hct 35.8 (34.0-46.0) % MCV 113.9 H (80.0-100.0) fL MCH 38.6 H (25.0-35.0) pg MCHC 33.9 (31.0-37.0) g/dL RDW 16.5 H (11.5-15.5) % Plt Count 220 (150-450) k/uL MPV 8.9 Neutrophils % 59 % Lymphocytes % 27 % Monocytes % 10 % Eosinophils % 2 % Basophils % 1 % Neutrophils # 3.1 (1.3-7.7) k/uL Lymphocytes # 1.4 (1.0-4.8) k/uL Monocytes # 0.5 (0-1.0) k/uL Eosinophils # 0.1 (0-0.7) k/uL Basophils # 0.0 (0-0.2) k/uL Manual Slide Review Performed Anisocytosis Slight Macrocytosis Marked A PT 11.0 (9.0-12.0) sec INR 1.0 (<1.2) APTT 22.1 (22.0-30.0) sec D-Dimer 0.82 H (<0.60) mg/L FEU Sodium (137-145) mmol/L Potassium (3.5-5.1) mmol/L Chloride (98-107) mmol/L Carbon Dioxide (22-30) mmol/L Anion Gap mmol/L BUN (7-17) mg/dL Creatinine (0.52-1.04) mg/dL Est GFR (CKD-EPI)AfAm (>60 ml/min/1.73 sqM) Est GFR (CKD-EPI)NonAf (>60 ml/min/1.73 sqM) Glucose (74-99) mg/dL Plasma Lactic Acid Malachi (0.7-2.0) mmol/L Calcium (8.4-10.2) mg/dL Total Bilirubin (0.2-1.3) mg/dL AST (14-36) U/L ALT (4-34) U/L Alkaline Phosphatase (38-126) U/L Troponin I (0.000-0.034) ng/mL Total Protein (6.3-8.2) g/dL Albumin (3.5-5.0) g/dL Urine Color Yellow Urine Appearance Cloudy H (Clear) Urine pH 5.5 (5.0-8.0) Ur Specific Ackworth 1.010 (1.001-1.035) Urine Protein Negative (Negative) Urine Glucose (UA) Negative (Negative) Urine Ketones Negative (Negative) Urine Blood Negative (Negative) Urine Nitrite Positive H (Negative) Urine Bilirubin Negative (Negative) Urine Urobilinogen <2.0 (<2.0) mg/dL Ur Leukocyte Esterase Moderate H (Negative) Urine WBC 30 H (0-5) /hpf Ur Squamous Epith Cells 3 (0-4) /hpf Urine Bacteria Many H (None) /hpf Hyaline Casts 30 H (0-2) /lpf Urine Mucus Rare H (None) /hpf 01/30/21 01/30/21 01/30/21 Range/Units 18:13 18:13 20:56 WBC (3.8-10.6) k/uL RBC (3.80-5.40) m/uL Hgb (11.4-16.0) gm/dL Hct (34.0-46.0) % MCV (80.0-100.0) fL MCH (25.0-35.0) pg MCHC (31.0-37.0) g/dL RDW (11.5-15.5) % Plt Count (150-450) k/uL MPV Neutrophils % % Lymphocytes % % Monocytes % % Eosinophils % % Basophils % % Neutrophils # (1.3-7.7) k/uL Lymphocytes # (1.0-4.8) k/uL Monocytes # (0-1.0) k/uL Eosinophils # (0-0.7) k/uL Basophils # (0-0.2) k/uL Manual Slide Review Anisocytosis Macrocytosis PT (9.0-12.0) sec INR (<1.2) APTT (22.0-30.0) sec D-Dimer (<0.60) mg/L FEU Sodium 134 L (137-145) mmol/L Potassium 4.9 (3.5-5.1) mmol/L Chloride 105 (98-107) mmol/L Carbon Dioxide 20 L (22-30) mmol/L Anion Gap 9 mmol/L BUN 10 (7-17) mg/dL Creatinine 0.84 (0.52-1.04) mg/dL Est GFR (CKD-EPI)AfAm 83 (>60 ml/min/1.73 sqM) Est GFR (CKD-EPI)NonAf 72 (>60 ml/min/1.73 sqM) Glucose 85 (74-99) mg/dL Plasma Lactic Acid Malachi 2.2 H* (0.7-2.0) mmol/L Calcium 8.0 L (8.4-10.2) mg/dL Total Bilirubin 0.9 (0.2-1.3) mg/dL AST 126 H (14-36) U/L ALT 42 H (4-34) U/L Alkaline Phosphatase 130 H (38-126) U/L Troponin I 0.017 (0.000-0.034) ng/mL Total Protein 5.2 L (6.3-8.2) g/dL Albumin 2.9 L (3.5-5.0) g/dL Urine Color Urine Appearance (Clear) Urine pH (5.0-8.0) Ur Specific Ackworth (1.001-1.035) Urine Protein (Negative) Urine Glucose (UA) (Negative) Urine Ketones (Negative) Urine Blood (Negative) Urine Nitrite (Negative) Urine Bilirubin (Negative) Urine Urobilinogen (<2.0) mg/dL Ur Leukocyte Esterase (Negative) Urine WBC (0-5) /hpf Ur Squamous Epith Cells (0-4) /hpf Urine Bacteria (None) /hpf Hyaline Casts (0-2) /lpf Urine Mucus (None) /hpf Disposition <Eric Ferreira - Last Filed: 01/30/21 22:58> Is patient prescribed a controlled substance at d/c from ED?: No Time of Disposition: 23:04 <Jorge Luis Jose - Last Filed: 01/30/21 23:11> Clinical Impression: Urinary tract infection, Hypotension Disposition: ADMITTED IP TO THIS HOSP Condition: Fair Referrals: Brianne Snyder DO [Primary Care Provider] - 1-2 days
[2021-01-30] MEDS ORDERED: cefTRIAXone IN SWFI 1,000 MG/10 ML SYRINGE IVP STA (20:47)
[2021-01-30] MEDS ORDERED: LORazepam 2 MG/ML INJ IV PRN (23:02)
[2021-01-30] MEDS ORDERED: ONDANSETRON 4 MG/2 ML VIAL IVP PRN (23:02)
[2021-01-30] MEDS ORDERED: ACETAMINOPHEN TAB 325 MG TAB PO PRN (23:02)
[2021-01-30] MEDS ORDERED: NALOXONE 0.4 MG/ML 1 ML VIAL IV PRN (23:02)
[2021-01-31] MEDS: SODIUM CHLORIDE 0.9% 1,000 ML IV SCH ×3 (00:26→22:56)
[2021-01-31] MEDS ORDERED: PANTOPRAZOLE 40 MG/10 ML VIAL IV SCH (09:00)
--- NOTE | 2021-01-31 10:36 | CT ---
EXAMINATION TYPE: CT chest angio for PE DATE OF EXAM: 01/31/2021 COMPARISON: Chest x-ray from yesterday HISTORY: Elevated d dimer CT DLP: 399 mGycm Automated exposure control for dose reduction was used. CONTRAST: CT Chest for pulmonary embolism performed with with IV Contrast, patient injected with 55 mL of Isovu e 370. FINDINGS: LUNGS: Exam suboptimal as patient unable to hold breath. Small to tiny left greater than right pleura l effusions. Persistent low lung volumes. Mild to moderate bibasilar linear scarring and/or atelectas is. No suspicious focal consolidation. No concerning masses. Tracheobronchial tree is patent. MEDIASTINUM: There is satisfactory enhancement of the pulmonary artery and its branches, there is no CT evidence for pulmonary embolism. Satisfactory enhancement of the thoracic aorta without aneurysm o r dissection. There are no greater than 1 cm hilar or mediastinal lymph nodes. No cardiomegaly or p ericardial effusion is seen. OTHER: Surgical changes gastroesophageal junction just above the diaphragm with small to moderate siz e hiatal hernia. Cholecystectomy clips. Visualized liver markedly hypodense consistent with diffuse f atty infiltration. Increased tissue left breast axial image 50 corresponds to most recent mammograms from 2018 and 2019. IMPRESSION: Suboptimal study without acute pulmonary embolism. Small to tiny left greater than right pleural effusions. Low lung volumes with mild to moderate bibasilar linear scarring and/or atelectas is. No suspicious focal consolidation.
--- NOTE | 2021-01-31 12:50 | XR ---
EXAMINATION TYPE: XR Hip Complete RT DATE OF EXAM: 01/31/2021 CLINICAL HISTORY: Fall injury with pain TECHNIQUE: AP and frogleg views of the right hip are obtained. COMPARISON: None. FINDINGS: Osseous structures are demineralized which is noted to low radiographic sensitivity along w ith portable technique. There is no acute fracture/dislocation evident in the right hip. Mild axial j oint space loss with mild to moderate acetabular spurring. Partial visualization of contrast-filled b ladder from recent CT. IMPRESSION: There is no acute fracture or dislocation in the right hip.
--- NOTE | 2021-01-31 13:37 | CONS ---
CONSULTATION CHIEF COMPLAINT: Hypotension. Shyann is a 65-year-old lady with history of hypertension and hypothyroidism who is admitted to the hospital having had a fall at [facility]. The patient states that she was using her walker to get around, when she got up she went down to the ground, did not lose of consciousness, just felt weak and unsteady. Patient has a baseline unsteadiness in her gait for which she uses a walker. She does not have any chest pain, PND or orthopnea and does not have leg edema. Since being admitted to the hospital, she presented to the ER where her blood pressures were low with the lowest blood pressure being 62/36 which gradually improved with IV fluids. At the time of my evaluation this morning, she appears comfortable at rest, getting around, had her breakfast and the blood pressures are improving. Her antihypertensives are currently on hold. She is receiving the IV fluids. She has had three sets of troponins that are all within normal limits. An EKG showed sinus rhythm with nonspecific ST-T wave changes. The patient had a cardiac catheterization in 2017 that revealed normal coronary arteries. Potassium is 4.9, creatinine is 0.8 and D-dimer is only slightly elevated. PAST MEDICAL HISTORY: Significant for hypothyroidism, hypertension, arthritis, and back pain. MEDICATIONS: Medications at home include Lasix, K-Dur, Toprol, losartan, Synthroid. ALLERGIES: MRI CONTRAST. FAMILY HISTORY: Negative for premature coronary artery disease. SOCIAL HISTORY: Negative for smoking, EtOH abuse, or drug abuse. REVIEW OF SYSTEMS: HEENT is unremarkable. CARDIAC: As described above. RESPIRATORY: Negative. GI: Negative. GENITOURINARY: Negative. ALLERGY/IMMUNOLOGY: Negative. MUSCULOSKELETAL: Negative. ENDOCRINE: Negative. DERM: Negative. CONSTITUTIONAL: Negative. ONCOLOGICAL: Negative. TALENT MANAGEMENT SPECIALIST: Negative. Rest of the system review is not relevant. EXAM: Comfortable at rest. Heart rate is 77 beats per minute, blood pressure is 99/69, respiratory rate is 15, O2 saturation is 96% on room air. There is no jugular venous distention. Carotid upstroke is normal. There is no bruit. Chest exam reveals good air entry bilaterally. Heart exam reveals first and second heart sounds. No gallop. No murmur. No rub. Abdomen is soft, nontender. Examination of extremities did not reveal any edema. Peripheral pulses are palpable. ASSESSMENT: 1. Hypotension of unclear etiology. 2. History of hypertension. PLAN: Since the patient has allergies to the MRI contrast, I will go ahead and get a CTA to complete her workup as we really do not have any good explanation for her hypotension. I will obtain a serum cortisol level on her and obtain a 2D echo on her tomorrow morning. MMODL / IJN: [id number] /
--- NOTE | 2021-01-31 15:57 | P.HPIM ---
History of Present Illness 65-year-old female is admitted after a mechanical fall patient did admit to feeling lightheaded but patient didn't have any syncopal episode although patient states she doesn't remember all the events that happened yesterday. Patient is found to have very low blood pressure because of which patient is being admitted for monitoring overnight. Patient denied any chest pain all the workup is negative. Patient is mildly hyponatremic. Patient had a CT angios the chest because of mildly elevated d-dimer which showed mild bilateral pleural effusions no pulmonary embolism. Patient did have elevated lactic acid to 2.7 improved with IV fluids to 1.6. Because syncope cannot be completely ruled out. 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 Patient appears to have a symptomatically bacteriuria which will not require any antibiotics. Patient was recently started on Lasix. Patient had a normal ejection fraction the past. Patient had mildly elevated liver enzymes. Denied any history of chronic hepatitis Review of Systems REVIEW OF SYSTEMS: CONSTITUTIONAL: No fever, no malaise, no fatigue. HEENT: No recent visual problems or hearing problems. Denied any sore throat. CARDIOVASCULAR: No chest pain, orthopnea, PND, no palpitations. PULMONARY: No shortness of breath, no cough, no hemoptysis. GASTROINTESTINAL: No diarrhea, no nausea, no vomiting, no abdominal pain. NEUROLOGICAL: No headaches, no weakness, no numbness. HEMATOLOGICAL: Denies any bleeding or petechiae. GENITOURINARY: Denies any burning micturition, frequency, or urgency. MUSCULOSKELETAL/RHEUMATOLOGICAL: Denies any joint pain, swelling, or any muscle pain. ENDOCRINE: Denies any polyuria or polydipsia. The rest of the 14-point review of systems is negative. Past Medical History Past Medical History: Chest Pain / Angina, CVA/TIA, Fibromyalgia, GERD/Reflux, Osteoarthritis (OA) Additional Past Medical History / Comment(s): "DUMPING SYNDROME" URINARY I NCONTINENCE, TIA X3, restless leg History of Any Multi-Drug Resistant Organisms: None Reported Past Surgical History: Bariatric Surgery, Cholecystectomy, Hysterectomy, Orthopedic Surgery Additional Past Surgical History / Comment(s): HX GASTRIC BYPASS, PAIN CLINIC PROCEDURE, c3-7 fusions Past Anesthesia/Blood Transfusion Reactions: No Reported Reaction Additional Past Anesthesia/Blood Transfusion Reaction / Comment(s): REQUIRE ABOVE AVERAGE LIDOCAINE DOSE. Smoking Status: Former smoker - Past Family History Father Family Medical History: Diabetes Mellitus, Myocardial Infarction ([place]) Mother Family Medical History: Cancer, Myocardial Infarction ([place]) Medications and Allergies Home Medications Medication Instructions Recorded Confirmed Type Metoprolol Succinate (ER) [Toprol 25 mg PO DAILY #30 tab 03/30/17 01/30/21 Rx XL] Furosemide [Lasix] 20 mg PO DAILY 01/30/21 01/30/21 History Levothyroxine Sodium [Synthroid] 25 mcg PO DAILY 01/30/21 01/30/21 History Losartan Potassium 25 mg PO DAILY 01/30/21 01/31/21 History Multivitamins, Thera [Multivitamin 1 tab PO DAILY 01/30/21 01/30/21 History (formulary)] Potassium Chloride ER [K-Dur 10] 10 meq PO DAILY 01/30/21 01/30/21 History Allergies Allergy/AdvReac Type Severity Reaction Status Date / Time MRI CONTRAST AdvReac FLUSHING Uncoded 01/30/21 17:36 Physical Exam Vitals: Vital Signs Temp Pulse Pulse Resp BP BP Pulse Ox 01/31/21 12:45 97.8 F 63 20 83/53 93 L 01/31/21 11:57 98.2 F 89 18 95/59 98 01/31/21 10:00 64 15 90/66 97 01/31/21 09:00 77 15 99/69 97 01/31/21 08:28 99/69 01/31/21 07:00 98.3 F 73 15 86/52 96 01/31/21 06:00 72 17 80/50 01/31/21 05:00 71 17 74/50 01/31/21 04:00 71 18 94/72 01/31/21 03:38 73 18 97/73 97 01/31/21 02:00 71 18 62/36 97 01/31/21 01:30 72 18 67/38 97 01/31/21 01:00 72 18 73/50 97 01/31/21 00:30 70 18 79/55 98 01/31/21 00:00 69 18 86/66 97 01/30/21 23:56 68 16 86/66 98 01/30/21 21:30 73 18 78/50 98 01/30/21 20:44 73 18 78/48 96 01/30/21 20:11 73 18 75/47 98 01/30/21 19:15 75 18 81/55 100 01/30/21 18:50 75 16 92/67 100 01/30/21 17:32 98.4 F 76 18 99/72 100 Intake and Output 01/31/21 01/31/21 01/31/21 06:59 14:59 22:59 Other: Weight 79.379 kg PHYSICAL EXAMINATION: GENERAL: The patient is alert and oriented x3, not in any acute distress. Well developed, well nourished. HEENT: Pupils are round and equally reacting to light. EOMI. No scleral icterus. No conjunctival pallor. Normocephalic, atraumatic. No pharyngeal erythema. No thyromegaly. CARDIOVASCULAR: S1 and S2 present. No murmurs, rubs, or gallops. PULMONARY: Chest is clear to auscultation, no wheezing or crackles. ABDOMEN: Soft, nontender, nondistended, normoactive bowel sounds. No palpable organomegaly. MUSCULOSKELETAL: No joint swelling or deformity. EXTREMITIES: No cyanosis, clubbing, or pedal edema. NEUROLOGICAL: Gross neurological examination did not reveal any focal deficits. SKIN: No rashes. Results CBC & Chem 7: 01/30/21 18:13 01/30/21 18:13 Labs: Abnormal Lab Results - Last 24 Hours (Table) 01/30/21 01/30/21 01/30/21 Range/Units 18:13 18:13 18:13 RBC 3.14 L (3.80-5.40) m/uL MCV 113.9 H (80.0-100.0) fL MCH 38.6 H (25.0-35.0) pg RDW 16.5 H (11.5-15.5) % Macrocytosis Marked A D-Dimer 0.82 H (<0.60) mg/L FEU Sodium (137-145) mmol/L Carbon Dioxide (22-30) mmol/L Plasma Lactic Acid Malachi (0.7-2.0) mmol/L Calcium (8.4-10.2) mg/dL AST (14-36) U/L ALT (4-34) U/L Alkaline Phosphatase (38-126) U/L Total Protein (6.3-8.2) g/dL Albumin (3.5-5.0) g/dL Urine Appearance Cloudy H (Clear) Urine Nitrite Positive H (Negative) Ur Leukocyte Esterase Moderate H (Negative) Urine WBC 30 H (0-5) /hpf Urine Bacteria Many H (None) /hpf Hyaline Casts 30 H (0-2) /lpf Urine Mucus Rare H (None) /hpf 01/30/21 01/30/21 01/30/21 Range/Units 18:13 20:56 23:59 RBC (3.80-5.40) m/uL MCV (80.0-100.0) fL MCH (25.0-35.0) pg RDW (11.5-15.5) % Macrocytosis D-Dimer (<0.60) mg/L FEU Sodium 134 L (137-145) mmol/L Carbon Dioxide 20 L (22-30) mmol/L Plasma Lactic Acid Malachi 2.2 H* 2.7 H* (0.7-2.0) mmol/L Calcium 8.0 L (8.4-10.2) mg/dL AST 126 H (14-36) U/L ALT 42 H (4-34) U/L Alkaline Phosphatase 130 H (38-126) U/L Total Protein 5.2 L (6.3-8.2) g/dL Albumin 2.9 L (3.5-5.0) g/dL Urine Appearance (Clear) Urine Nitrite (Negative) Ur Leukocyte Esterase (Negative) Urine WBC (0-5) /hpf Urine Bacteria (None) /hpf Hyaline Casts (0-2) /lpf Urine Mucus (None) /hpf 01/31/21 Range/Units 03:04 RBC (3.80-5.40) m/uL MCV (80.0-100.0) fL MCH (25.0-35.0) pg RDW (11.5-15.5) % Macrocytosis D-Dimer (<0.60) mg/L FEU Sodium (137-145) mmol/L Carbon Dioxide (22-30) mmol/L Plasma Lactic Acid Malachi 2.8 H* (0.7-2.0) mmol/L Calcium (8.4-10.2) mg/dL AST (14-36) U/L ALT (4-34) U/L Alkaline Phosphatase (38-126) U/L Total Protein (6.3-8.2) g/dL Albumin (3.5-5.0) g/dL Urine Appearance (Clear) Urine Nitrite (Negative) Ur Leukocyte Esterase (Negative) Urine WBC (0-5) /hpf Urine Bacteria (None) /hpf Hyaline Casts (0-2) /lpf Urine Mucus (None) /hpf Microbiology - Last 24 Hours (Table) 01/30/21 18:13 Urine Culture - Preliminary Urine,Voided Thrombosis Risk Factor Assmnt - Choose All That Apply Each Risk Factor Represents 2 Points: Age 61-74 years Thrombosis Risk Factor Assessment Total Risk Factor Score: 2 Thrombosis Risk Factor Assessment Level: Low Risk Assessment and Plan Plan: - mechanical fall. 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 Patient is not in A. fib at this time. -Asymptomatic bacteriuria will not require any antibiotics -Hypotension because of her medications patient is on beta li on losartan and was recently started on Lasix all of which will be held at this time patient is on IV fluids which will continue patient blood pressure goes down to as low a s 80 systolic. -Hypothyroidism -Elevated liver enzymes: We will repeat liver enzymes tomorrow if they continue to be elevated and patient will need hepatitis panel and ultrasound of the gallbladder. -Gastroesophageal reflux disease -To is doses admitted to intravascular depletion no evidence of infection at this time improved with IV fluids -Hypovolemic hyponatremia secondary to Lasix IV fluids as mentioned above -DVT prophylaxis with Lovenox
[2021-02-01] MEDS: SODIUM CHLORIDE 0.9% 1,000 ML IV SCH ×2 (04:29→12:27)
[2021-02-01] MEDS: LEVOTHYROXINE 25 MCG TAB PO SCH (06:14)
[2021-02-01 08:02] LABS: ALT 31 U/L (4-34); AST 72 U/L (14-36); African American GFR (CKD) >90 (>60 ml/min/1.73 sqM); Albumin 2.4 g/dL (3.5-5.0); Alkaline Phosphatase 113 U/L (38-126); Anion Gap 3 mmol/L; Blood Urea Nitrogen 8 mg/dL (7-17); Calcium 7.6 mg/dL (8.4-10.2); Carbon Dioxide 23 mmol/L (22-30); Chloride 112 mmol/L (98-107); Glucose 75 mg/dL (74-99); Non-African American GFR(CKD) >90 (>60 ml/min/1.73 sqM); Sodium 138 mmol/L (137-145); Total Bilirubin 0.5 mg/dL (0.2-1.3); Total Protein 4.4 g/dL (6.3-8.2)
[2021-02-01] MEDS: PANTOPRAZOLE 40 MG TABLET PO SCH (10:04)
[2021-02-01] MEDS: ENOXAPARIN 40 MG/0.4 ML SYRINGE SQ SCH (10:04)
--- NOTE | 2021-02-01 13:53 | P.PN ---
Subjective Progress Note Date: 02/01/21 HISTORY OF PRESENT ILLNESS: This is a 65-year-old female who was admitted to the hospital secondary to hypotension. Patient states she does not follow with a family practice physician assistant. Patient's blood pressures were in the 60s in the emergency room. Patient has received 3 L IV fluid boluses and has fluids running at 125 mL an hour. Patient states she takes metoprolol and Cozaar at home. She states she was recently started on Lasix about a month ago for lower extremity edema. These medications remain on hold. Patient's blood pressure has improved today. She does report dizziness with standing. She denies chest pain or pressure. Denies shortness of breath. CTA completed yesterday negative for pulmonary embolism. Cortisol level 12. PHYSICAL EXAM: VITAL SIGNS: Reviewed. GENERAL: Well-developed in no acute distress. NECK: Supple. No JVD or thyromegaly LUNGS: Respirations even and unlabored. Lungs essentially clear to auscultation bilaterally. HEART: Regular rate and rhythm. S1 and S2 heard. EXTREMITIES: Normal range of motion. No clubbing or cyanosis. Peripheral pulses intact. No lower extremity edema ASSESSMENT: Hypotension of unknown etiology History of hypertension PLAN: Continue to hold BP medications Obtain orthostatics Continue to monitor BP Patient states she recently had an echo performed at her PCP office. Records requested. Further recommendations pending patient course. Nurse practitioner note has been reviewed by physician. Signing provider agrees with the documented findings, assessment, and plan of care. Objective - Vital Signs Vital signs: Vital Signs Temp 98.4 F 02/01/21 08:00 Pulse 105 H 02/01/21 11:26 Resp 20 02/01/21 11:26 BP 121/71 02/01/21 11:26 Pulse Ox 97 02/01/21 11:26 Intake & Output 01/31/21 02/01/21 02/01/21 18:59 06:59 18:59 Intake Total 735 305 Output Total 150 Balance 735 -150 305 Weight 79.379 kg 86 kg Intake: Intake, IV Titration 375 125 Amount Sodium Chloride 0.9% 1, 375 125 000 ml @ 125 mls/hr IV . Q8H [facility] Rx#:[id number] Oral 360 180 Output: Urine 150 Other: # Voids 3 1 0 - Labs CBC & Chem 7: 01/30/21 18:13 02/01/21 07:07 Labs: Abnormal Lab Results - Last 24 Hours (Table) 02/01/21 Range/Units 07:07 Chloride 112 H (98-107) mmol/L Calcium 7.6 L (8.4-10.2) mg/dL AST 72 H (14-36) U/L Total Protein 4.4 L (6.3-8.2) g/dL Albumin 2.4 L (3.5-5.0) g/dL Microbiology - Last 24 Hours (Table) 01/30/21 18:13 Urine Culture - Preliminary Urine,Voided
--- NOTE | 2021-02-01 22:02 | P.PN ---
Subjective Progress Note Date: 02/01/21 Principal diagnosis: syncope She denies any further dizziness, no shortness of breath or dysuria. She declines repeat echo today as notes she had one done last month in PCP clinic which showed normal LVEF and trace MRTon Harrison's UA positive for bacteria. Objective - Vital Signs Vital signs: Vital Signs Temp 98 F 02/01/21 20:00 Pulse 76 02/01/21 20:00 Resp 16 02/01/21 20:00 BP 111/78 02/01/21 20:00 Pulse Ox 100 02/01/21 20:00 Intake & Output 02/01/21 02/01/21 02/02/21 06:59 18:59 06:59 Intake Total 652 Output Total 150 Balance -150 652 Weight 86 kg Intake: Intake, IV Titration 125 Amount Sodium Chloride 0.9% 1, 125 000 ml @ 125 mls/hr IV . Q8H [facility] Rx#:[id number] Oral 527 Output: Urine 150 Other: # Voids 1 2 1 - Exam Gen: well developed, no acute distress CV: RRR, no murmur Lungs: clear throughout Abd: soft, nontender - Labs CBC & Chem 7: 01/30/21 18:13 02/01/21 07:07 Labs: Abnormal Lab Results - Last 24 Hours (Table) 02/01/21 Range/Units 07:07 Chloride 112 H (98-107) mmol/L Calcium 7.6 L (8.4-10.2) mg/dL AST 72 H (14-36) U/L Total Protein 4.4 L (6.3-8.2) g/dL Albumin 2.4 L (3.5-5.0) g/dL Microbiology - Last 24 Hours (Table) 01/30/21 18:13 Urine Culture - Preliminary Urine,Voided Gram Neg Bacilli Assessment and Plan (1) Acute cystitis Current Visit: Yes Status: Acute Code(s): N30.00 - ACUTE CYSTITIS WITHOUT HEMATURIA SNOMED Code(s): 07111049 (2) Hypotension Current Visit: Yes Status: Acute Code(s): I95.9 - HYPOTENSION, UNSPECIFIED SNOMED Code(s): 55413296 Plan: Syncope likely secondary to recently started lasix as well as poor PO intake and UTI. Will treat with rocephin and stop IV fluids today. Stop lasix. Further recommendations per Cardiology. Discharge planning in progress
[2021-02-01] MEDS: traMADol 50 MG TAB PO PRN (22:37)
[2021-02-02] MEDS: LEVOTHYROXINE 25 MCG TAB PO SCH (05:41)
[2021-02-02] MEDS: ENOXAPARIN 40 MG/0.4 ML SYRINGE SQ SCH (08:55)
[2021-02-02] MEDS: PANTOPRAZOLE 40 MG TABLET PO SCH (08:56)
[2021-02-02] MEDS: FUROSEMIDE 10 MG/ML 2 ML VIAL IV SCH ×2 (12:37→20:24)
[2021-02-02] MEDS: METOPROLOL SUCCINATE (ER) 25 MG TAB.ER.24H PO SCH (12:37)
--- NOTE | 2021-02-02 12:38 | P.PN ---
Subjective This is a pleasant 65-year-old female past medical history significant for hypertension. She is seen and examined resting comfortably laying flat in bed in no acute distress. She states starting last night she noticed she was becoming more and more short of breath. Simply to be such as sitting up at the edge of the bed ulcer to be quite dyspneic and weak. She also noticed a 4 pound weight gain from yesterday to today. She has no chest discomfort, dizziness or palpitations. Blood pressures have improved, 116/82 with a heart rate of 92. Orthostatic vital signs from yesterday were unremarkable. Laboratory data reviewed, sodium 138, potassium 4, creatinine 0.66, and T proBNP 2700. Echocardiogram obtained in Dr. Snyder's office earlier this month revealed preserved LV systolic function with ejection fraction 55-60%. GENERAL: Well-appearing, well-nourished and in no acute distress. NECK: Supple without JVD or thyromegaly. LUNGS: Bibasilar rales, no wheezes or rhonchi. Respiration equal and unlabored. HEART: Regular rate and rhythm without murmurs, rubs or gallops. S1 and S2 heard. EXTREMITIES: Normal range of motion, bilateral lower extremity 1+ pitting edema. No clubbing or cyanosis. Peripheral pulses intact. ASSESSMENT Acute diastolic heart failure secondary to fluid resuscitation Hypotension History of hypertension PLAN Check a chest xray. Initiate lasix 20 mg IV BID. BNP obtained. Further recommendations to follow base on clinical course. Nurse Practitioner note has been reviewed, I agree with a documented findings and plan of care. Patient was seen and examined. Objective - Vital Signs Vital signs: Vital Signs Temp 98.4 F 02/02/21 08:52 Pulse 92 02/02/21 11:10 Resp 18 02/02/21 11:10 BP 116/82 02/02/21 11:10 Pulse Ox 100 02/02/21 11:10 Intake & Output 02/01/21 02/02/21 02/02/21 18:59 06:59 18:59 Intake Total 652 230 Balance 652 230 Weight 87.5 kg Intake: Intake, IV Titration 125 50 Amount Sodium Chloride 0.9% 1, 125 000 ml @ 125 mls/hr IV . Q8H [facility] Rx#:[id number] cefTRIAXone 1 gm In 50 Sodium Chloride 0.9% 50 ml @ 100 mls/hr IVPB Q24HR [facility] Rx#:[id number] Oral 527 180 Other: Voiding Method Toilet # Voids 2 1 1 - Labs CBC & Chem 7: 01/30/21 18:13 02/01/21 07:07 Labs: Microbiology - Last 24 Hours (Table) 01/30/21 18:13 Urine Culture - Final Urine,Voided Klebsiella pneumoniae
--- NOTE | 2021-02-02 14:22 | P.PN ---
Subjective Progress Note Date: 02/02/21 This a 65-year-old female admitted with multiple medical issues including syncope, hypotension, acute UTI with Klebsiella pneumonia maintained on IV antibiotics and multiple other medical issues. Declined echo as she has recently completed one in PCP office which reported normal LV function, trace complains of increased weakness, shortness of breath, BNP 2700. Mild ankle edema. 24-hour I&O reporting weight increased 1.5 kg in 24 hours. Maintaining O2 sats in the high 90s on room air. Recent orthostatic vital signs negative. Denies chest pain, palpitations. Vital signs stable, Heart rate up into the 90s, beta blockers resumed Objective - Vital Signs Vital signs: Vital Signs Temp 98.4 F 02/02/21 08:52 Pulse 92 02/02/21 11:10 Resp 18 02/02/21 11:10 BP 116/82 02/02/21 11:10 Pulse Ox 100 02/02/21 11:10 Intake & Output 02/01/21 02/02/21 02/02/21 18:59 06:59 18:59 Intake Total 652 230 Balance 652 230 Weight 87.5 kg Intake: Intake, IV Titration 125 50 Amount Sodium Chloride 0.9% 1, 125 000 ml @ 125 mls/hr IV . Q8H [facility] Rx#:[id number] cefTRIAXone 1 gm In 50 Sodium Chloride 0.9% 50 ml @ 100 mls/hr IVPB Q24HR [facility] Rx#:[id number] Oral 527 180 Other: Voiding Method Toilet # Voids 2 1 1 - Exam - Exam Gen: well developed, no acute distress CV: RRR, no murmur Lungs: Unlabored, clear with bilateral bases diminished, Abd: soft, nontender. Positive bowel sounds EXT: Mild edema, no calf pain - Labs CBC & Chem 7: 01/30/21 18:13 02/01/21 07:07 Labs: Microbiology - Last 24 Hours (Table) 01/30/21 18:13 Urine Culture - Final Urine,Voided Klebsiella pneumoniae Assessment and Plan Assessment: (1) acute CHF exacerbation, diastolic dysfunction secondary to fluid overload (2) syncope suspect secondary to recently started Lasix OP in addition to poor oral intake and UTI (3) Hypotension Current Visit: Yes Status: Acute Code(s): I95.9 - HYPOTENSION, UNSPECIFIED SNOMED Code(s): 08794682 (4)Acute cystitis, Klebsiella pneumoniae UTI Current Visit: Yes Status: Acute Code(s): N30.00 - ACUTE CYSTITIS WITHOUT HEMATURIA SNOMED Code(s): 27520157 (5) atelectasis Plan: Continue on current medication regime ,monitoring and symptomatic treatment. Diuretics as per cardiology, chest x-ray pending. Increase ambulation as tolerated .Subacute rehab at discharge recommended as per physical therapy. Discharge planning in progress tentatively for tomorrow, pending cardiology clearance. The impression and plan of care has been dictated as directed. : I performed a history and examination of this patient, discussed the same with the dictator. I agree with the dictator's note ,documented as a scribe. Any additional findings or plans will be noted.
--- NOTE | 2021-02-02 17:45 | XR ---
EXAMINATION TYPE: XR chest 2V DATE OF EXAM: 02/02/2021 COMPARISON: 01/30/2021 HISTORY: Short of breath TECHNIQUE: 2 views FINDINGS: There is blunting left costophrenic angle. Heart size is normal. There is no heart failure. There are chest leads. There are no hilar masses. There is some infiltrate at the left lung base. IMPRESSION: Compared to recent exam there is development of left pleural effusion and left lower lobe infiltrate consistent with pneumonia. No obvious heart failure.
[2021-02-02] MEDS: traMADol 50 MG TAB PO PRN (23:25)
[2021-02-03] MEDS: LEVOTHYROXINE 25 MCG TAB PO SCH (06:37)
[2021-02-03 09:30] LABS: African American GFR (CKD) >90 (>60 ml/min/1.73 sqM); Anion Gap 1 mmol/L; Blood Urea Nitrogen 4 mg/dL (7-17); Calcium 8.2 mg/dL (8.4-10.2); Carbon Dioxide 29 mmol/L (22-30); Chloride 108 mmol/L (98-107); Glucose 76 mg/dL (74-99); Non-African American GFR(CKD) >90 (>60 ml/min/1.73 sqM); Sodium 138 mmol/L (137-145)
[2021-02-03] MEDS: ENOXAPARIN 40 MG/0.4 ML SYRINGE SQ SCH (09:54)
[2021-02-03] MEDS: METOPROLOL SUCCINATE (ER) 25 MG TAB.ER.24H PO SCH (09:54)
[2021-02-03] MEDS: PANTOPRAZOLE 40 MG TABLET PO SCH (09:54)
[2021-02-03] MEDS: FUROSEMIDE 10 MG/ML 2 ML VIAL IV SCH ×2 (09:54→19:49)
--- NOTE | 2021-02-03 10:09 | P.PN ---
Subjective Progress Note Date: 02/03/21 This a 65-year-old female admitted with multiple medical issues including syncope, hypotension, acute UTI with Klebsiella pneumonia maintained on IV antibiotics and multiple other medical issues. Declined echo as she has recently completed one in PCP office which reported normal LV function, trace complains of increased weakness, shortness of breath, BNP 2700. Mild ankle edema. 24-hour I&O reporting weight increased 1.5 kg in 24 hours. Maintaining O2 sats in the high 90s on room air. Recent orthostatic vital signs negative. Denies chest pain, palpitations. Vital signs stable, Heart rate up into the 90s, beta blockers resumed 02/03/2021 receiving Lasix IV push, diuresing well with 24-hour I&O reflecting a negative fluid balance. Reports no change, she still feels short of breath, but does have generalized weakness/shortness of breath at baseline. Chest x-ray completed yesterday afternoon reporting left pleural effusion and left lower lobe infiltrate. Maintaining O2 sats in the high 90s on room air. Afebrile. Denies chest pain, palpitations or shortness of breath. Labs pending. Objective - Vital Signs Vital signs: Vital Signs Temp 98.4 F 02/03/21 04:00 Pulse 79 02/03/21 04:00 Resp 18 02/03/21 04:00 BP 102/70 02/03/21 04:00 Pulse Ox 97 02/03/21 04:00 Intake & Output 02/02/21 02/03/21 02/03/21 18:59 06:59 18:59 Intake Total 470 240 Output Total 575 600 Balance -105 -360 Weight 85.8 kg Intake: Intake, IV Titration 50 Amount cefTRIAXone 1 gm In 50 Sodium Chloride 0.9% 50 ml @ 100 mls/hr IVPB Q24HR [facility] Rx#:[id number] Oral 420 240 Output: Urine 575 600 Other: Voiding Method Toilet Toilet # Voids 1 1 - Exam - Exam Gen: well developed, no acute distress CV: RRR, no murmur Lungs: Unlabored, clear with bilateral bases diminished, Abd: soft, nontender. Positive bowel sounds EXT: Mild edema, no calf pain - Labs CBC & Chem 7: 01/30/21 18:13 02/03/21 09:03 Labs: Abnormal Lab Results - Last 24 Hours (Table) 02/03/21 Range/Units 09:03 Chloride 108 H (98-107) mmol/L BUN 4 L (7-17) mg/dL Calcium 8.2 L (8.4-10.2) mg/dL Microbiology - Last 24 Hours (Table) 01/30/21 18:13 Urine Culture - Final Urine,Voided Klebsiella pneumoniae Assessment and Plan Assessment: (1) acute CHF exacerbation, diastolic dysfunction secondary to fluid overload (2) syncope suspect secondary to recently started Lasix OP in addition to poor oral intake and UTI (3) Hypotension Current Visit: Yes Status: Acute Code(s): I95.9 - HYPOTENSION, UNSPECIFIED SNOMED Code(s): 12418124 (4)Acute cystitis, Klebsiella pneumoniae UTI Current Visit: Yes Status: Acute Code(s): N30.00 - ACUTE CYSTITIS WITHOUT HEMATURIA SNOMED Code(s): 40966954 (5) atelectasis (6) obesity, morbid, BMI 32.5 (7) possible obstructive sleep apnea Plan: Continue on current medication regime ,monitoring and symptomatic treatment. Chest x-ray noted, Pro-calcitonin ordered. Diuretics as per cardiology. Increase ambulation as tolerated .[facility] Subacute rehab at discharge. Patient would benefit from a sleep study outpatient, suspect obstructive sleep apnea as well. Discharge planning in progress tentatively for tomorrow, pending cardiology clearance. The impression and plan of care has been dictated as directed. : I performed a history and examination of this patient, discussed the same with the dictator. I agree with the dictator's note ,documented as a scribe. Any additional findings or plans will be noted.
[2021-02-03 10:11] LABS: Anisocytosis Slight; HCT 32.8 % (34.0-46.0); HGB 10.4 gm/dL (11.4-16.0); MCH 37.1 pg (25.0-35.0); MCHC 31.8 g/dL (31.0-37.0); MCV 116.5 fL (80.0-100.0); Macrocytosis Marked; Mean Platelet Volume 8.4; Platelet Count 177 k/uL (150-450); RBC 2.81 m/uL (3.80-5.40); RDW 17.1 % (11.5-15.5); WBC 3.6 k/uL (3.8-10.6)
--- NOTE | 2021-02-03 13:42 | P.PN ---
Subjective This is a pleasant 65-year-old female past medical history significant for hypertension. She is seen and examined resting comfortably laying flat in bed in no acute distress. She states starting last night she noticed she was becoming more and more short of breath. Simply to be such as sitting up at the edge of the bed ulcer to be quite dyspneic and weak. She also noticed a 4 pound weight gain from yesterday to today. She has no chest discomfort, dizziness or palpitations. Blood pressures have improved, 116/82 with a heart rate of 92. Orthostatic vital signs from yesterday were unremarkable. Laboratory data reviewed, sodium 138, potassium 4, creatinine 0.66, and T proBNP 2700. Echocardiogram obtained in Dr. Snyder's office earlier this month revealed preserved LV systolic function with ejection fraction 55-60%. 02/03/2021 Patient seen and evaluated resting comfortably laying flat in bed in no acute distress. Currently her breathing is stable however she states with any activity should be significantly short of breath. She has had no real improvement since yesterday. 24-hour urine output 1175 mL's. Blood pressure 105/64 heart rate 63 afebrile maintaining oxygen saturation on room air. Laboratory data reviewed, WBC 3.6, hemoglobin 10.4, platelets 177, sodium 138, potassium 4.0 and creatinine 0.67. Chest x-ray obtained yesterday reveals development of left pleural effusion and left lower lobe infiltrate consistent with pneumonia. Mild blunting of left costophrenic angle. GENERAL: Well-appearing, well-nourished and in no acute distress. NECK: Supple without JVD or thyromegaly. LUNGS: Bibasilar rales, no wheezes or rhonchi. Respiration equal and unlabored. HEART: Regular rate and rhythm without murmurs, rubs or gallops. S1 and S2 heard. EXTREMITIES: Normal range of motion, bilateral lower extremity 1+ pitting edema. No clubbing or cyanosis. Peripheral pulses intact. ASSESSMENT Acute diastolic heart failure secondary to fluid resuscitation Hypotension History of hypertension PLAN Continue current medical regimen for another 24 hours. Follow renal function in the morning. Nurse Practitioner note has been reviewed, I agree with a documented findings and plan of care. Patient was seen and examined. Objective - Vital Signs Vital signs: Vital Signs Temp 98.0 F 02/03/21 08:50 Pulse 63 02/03/21 08:50 Resp 18 02/03/21 08:50 BP 105/64 02/03/21 08:50 Pulse Ox 97 02/03/21 08:50 Intake & Output 02/02/21 02/03/21 02/03/21 18:59 06:59 18:59 Intake Total 470 240 Output Total 575 600 600 Balance -105 -360 -600 Weight 85.8 kg Intake: Intake, IV Titration 50 Amount cefTRIAXone 1 gm In 50 Sodium Chloride 0.9% 50 ml @ 100 mls/hr IVPB Q24HR [facility] Rx#:[id number] Oral 420 240 Output: Urine 575 600 600 Other: Voiding Method Toilet Toilet Toilet # Voids 1 1 1 - Labs CBC & Chem 7: 02/03/21 09:03 02/03/21 09:03 Labs: Abnormal Lab Results - Last 24 Hours (Table) 02/03/21 02/03/21 Range/Units 09:03 09:03 WBC 3.6 L (3.8-10.6) k/uL RBC 2.81 L (3.80-5.40) m/uL Hgb 10.4 L (11.4-16.0) gm/dL Hct 32.8 L (34.0-46.0) % MCV 116.5 H (80.0-100.0) fL MCH 37.1 H (25.0-35.0) pg RDW 17.1 H (11.5-15.5) % Macrocytosis Marked A Chloride 108 H (98-107) mmol/L BUN 4 L (7-17) mg/dL Calcium 8.2 L (8.4-10.2) mg/dL Microbiology - Last 24 Hours (Table) 01/30/21 18:13 Urine Culture - Final Urine,Voided Klebsiella pneumoniae
[2021-02-04 00:59] VITALS: RESP 16
[2021-02-04] MEDS: LEVOTHYROXINE 25 MCG TAB PO SCH (06:06)
[2021-02-04 08:14] LABS: African American GFR (CKD) >90 (>60 ml/min/1.73 sqM); Anion Gap -1 mmol/L; Blood Urea Nitrogen 3 mg/dL (7-17); Calcium 7.8 mg/dL (8.4-10.2); Carbon Dioxide 32 mmol/L (22-30); Chloride 107 mmol/L (98-107); Glucose 79 mg/dL (74-99); Non-African American GFR(CKD) >90 (>60 ml/min/1.73 sqM); Potassium 3.4 mmol/L (3.5-5.1); Sodium 138 mmol/L (137-145)
[2021-02-04] MEDS ORDERED: Potassium Replacement Protocol 1 EACH MISC MISCELLANE PRN ×2 (09:01→09:34)
[2021-02-04] MEDS ORDERED: Magnesium Replacement Protocol 1 EACH MISC MISCELLANE PRN ×2 (09:03→11:19)
[2021-02-04 09:16] VITALS: TEMP 98.1
[2021-02-04] MEDS: PANTOPRAZOLE 40 MG TABLET PO SCH (09:17)
[2021-02-04] MEDS: METOPROLOL SUCCINATE (ER) 25 MG TAB.ER.24H PO SCH (09:17)
[2021-02-04] MEDS: FUROSEMIDE 10 MG/ML 2 ML VIAL IV SCH (09:17)
[2021-02-04] MEDS: ENOXAPARIN 40 MG/0.4 ML SYRINGE SQ SCH (09:17)
[2021-02-04 09:28] LABS: Anisocytosis Slight; HCT 30.7 % (34.0-46.0); HGB 9.8 gm/dL (11.4-16.0); MCHC 32.1 g/dL (31.0-37.0); MCV 115.5 fL (80.0-100.0); Macrocytosis Marked; Mean Platelet Volume 8.8; Platelet Count 175 k/uL (150-450); RBC 2.66 m/uL (3.80-5.40); RDW 16.6 % (11.5-15.5); WBC 3.5 k/uL (3.8-10.6)
--- NOTE | 2021-02-04 09:46 | P.DS ---
Providers Date of admission: 01/30/21 23:00 Expected date of discharge: 02/04/21 Attending physician: Stanton Camara MD Consults: 01/30/21 23:00 Consult Physician Urgent Consulting Provider: Ramin Sweet Consult Reason/Comments: hypotension Do you want consulting provider notified?: Yes Primary care physician: Brianne Snyder [facility] Course: Final Diagnoses: (1) acute CHF exacerbation, diastolic dysfunction secondary to fluid overload (2) syncope suspect secondary to recently started Lasix OP in addition to poor oral intake and UTI (3) Hypotension Current Visit: Yes Status: Acute Code(s): I95.9 - HYPOTENSION, UNSPECIFIED SNOMED Code(s): 39965500 (4)Acute cystitis, Klebsiella pneumoniae UTI Current Visit: Yes Status: Acute Code(s): N30.00 - ACUTE CYSTITIS WITHOUT HEMATURIA SNOMED Code(s): 53287114 (5) atelectasis (6) obesity, morbid, BMI 32.5 (7) possible obstructive sleep apnea, further outpatient workup recommended Hospital course:This a 65-year-old female admitted with multiple medical issues including syncope, hypotension, acute UTI with Klebsiella pneumonia maintained on IV antibiotics and multiple other medical issues. Declined echo as she has recently completed one in PCP office which reported normal LV function, trace MR. complains of increased weakness, shortness of breath, BNP 2700. Mild ankle edema. 24-hour I&O reporting weight increased 1.5 kg in 24 hours. Maintaining O2 sats in the high 90s on room air. Recent orthostatic vital signs negative. Denies chest pain, palpitations. Vital signs stable, Heart rate up into the 90s, beta blockers resumed 02/03/2021 receiving Lasix IV push, diuresing well with 24-hour I&O reflecting a negative fluid balance. Reports no change, she still feels short of breath, but does have generalized weakness/shortness of breath at baseline. Chest x-ray completed yesterday afternoon reporting left pleural effusion and left lower lobe infiltrate. Maintaining O2 sats in the high 90s on room air. Afebrile. Denies chest pain, palpitations or shortness of breath. Labs pending. Pro-calcitonin 0.16. Afebrile, WBC pending. Potassium 3.4, supplementation in progress.Significant clinical improvement.Patient will be discharged to [facility] in a stable condition with guarded prognosis pending cardiology's final dc rec./clearance. Diuretics as per cardiology. The impression and plan of care has been dictated as directed. : I performed a history and examination of this patient, discussed the same with the dictator. I agree with the dictator's note ,documented as a scribe. Any additional findings or plans will be noted. Patient Condition at Discharge: Stable Plan - Discharge Summary Discharge Rx Participant: No New Discharge Prescriptions: New Pantoprazole [Protonix] 40 mg PO DAILY tablet. Acetaminophen Tab [Tylenol] 650 mg PO Q6HR PRN tab PRN Reason: Mild Pain Or Fever > 100.5 Continue Metoprolol Succinate (ER) [Toprol XL] 25 mg PO DAILY #30 tab Multivitamins, Thera [Multivitamin (formulary)] 1 tab PO DAILY Levothyroxine Sodium [Synthroid] 25 mcg PO DAILY Discontinued Furosemide [Lasix] 20 mg PO DAILY Potassium Chloride ER [K-Dur 10] 10 meq PO DAILY Losartan Potassium 25 mg PO DAILY Discharge Medication List Metoprolol Succinate (ER) [Toprol XL] 25 mg PO DAILY #30 tab 03/30/17 [Rx] Levothyroxine Sodium [Synthroid] 25 mcg PO DAILY 01/30/21 [History] Multivitamins, Thera [Multivitamin (formulary)] 1 tab PO DAILY 01/30/21 [History] Acetaminophen Tab [Tylenol] 650 mg PO Q6HR PRN tab 02/03/21 [Rx] Pantoprazole [Protonix] 40 mg PO DAILY tablet. 02/03/21 [Rx] Follow up Appointment(s)/Referral(s): Stanton Camara MD [STAFF PHYSICIAN] - 3 Days [facility], [NON-STAFF] - Ambulatory/Diagnostic Orders: Complete Blood Count w/diff [LAB.AMB] Time Frame: 3 Days, Location: None Selected Activity/Diet/Wound Care/Special Instructions: Diuretics as per cardiology .[facility]acute rehab CBC, BMP in 3 days Discharge Disposition: HOME WITH HOME HEALTH SERVICES
[2021-02-04] MEDS: POTASSIUM CHLORIDE ER 20 MEQ TAB.ER PO SCH ×2 (11:17→12:16)
[2021-02-04] MEDS: MAGNESIUM SULFATE-D5W PMX 1 GM in DEXTROSE/WATER 1 100ML.BAG IVPB SCH ×3 (11:31→13:42)
--- NOTE | 2021-02-04 11:38 | P.PN ---
Subjective This is a pleasant 65-year-old female past medical history significant for hypertension. She is seen and examined resting comfortably laying flat in bed in no acute distress. She states starting last night she noticed she was becoming more and more short of breath. Simply to be such as sitting up at the edge of the bed ulcer to be quite dyspneic and weak. She also noticed a 4 pound weight gain from yesterday to today. She has no chest discomfort, dizziness or palpitations. Blood pressures have improved, 116/82 with a heart rate of 92. Orthostatic vital signs from yesterday were unremarkable. Laboratory data reviewed, sodium 138, potassium 4, creatinine 0.66, and T proBNP 2700. Echocardiogram obtained in Dr. Snyder's office earlier this month revealed preserved LV systolic function with ejection fraction 55-60%. 02/03/2021 Patient seen and evaluated resting comfortably laying flat in bed in no acute distress. She appears comfortable at rest. She states her breathing has improved however not back to baseline. She has been up ambulating to the bathroom and does still become mildly dyspneic. Blood pressure 110/78 heart rate 82 afebrile maintaining oxygen saturation on room air. Laboratory data reviewed, pro-calcitonin 0.16 WBC 9.8, hemoglobin 175, platelets 138, potassium 3.4, creatinine 0.67 and magnesium 1.4. 24-hour urine output 1700ml. GENERAL: Well-appearing, well-nourished and in no acute distress. NECK: Supple without JVD or thyromegaly. LUNGS: Bibasilar rales, no wheezes or rhonchi. Respiration equal and unlabored. HEART: Regular rate and rhythm without murmurs, rubs or gallops. S1 and S2 heard. EXTREMITIES: Normal range of motion, bilateral lower extremity 1+ pitting edema. No clubbing or cyanosis. Peripheral pulses intact. ASSESSMENT Acute diastolic heart failure secondary to fluid resuscitation Possible pneumonia Urinary tract infection Hypotension Hypomagnesemia Hypokalemia History of hypertension PLAN Transition to oral diuretics, lasix 20 mg daily. Replace electrolytes per protocol. Follow up with Dr. Burrows upon discharge. Nurse Practitioner note has been reviewed, I agree with a documented findings and plan of care. Patient was seen and examined. Objective - Vital Signs Vital signs: Vital Signs Temp 98.1 F 02/04/21 09:11 Pulse 72 02/04/21 09:11 Resp 16 02/04/21 03:54 BP 104/77 02/04/21 09:11 Pulse Ox 98 02/04/21 09:11 Intake & Output 02/03/21 02/04/21 02/04/21 18:59 06:59 18:59 Intake Total 237 240 240 Output Total 600 1100 100 Balance -363 -860 140 Weight 88.5 kg Intake: Oral 237 240 240 Output: Urine 600 1100 100 Other: Voiding Method Toilet Toilet # Voids 1 4 - Labs CBC & Chem 7: 02/04/21 06:52 02/04/21 06:52 Labs: Abnormal Lab Results - Last 24 Hours (Table) 02/03/21 02/04/21 02/04/21 Range/Units 09:03 06:52 06:52 WBC (3.8-10.6) k/uL RBC (3.80-5.40) m/uL Hgb (11.4-16.0) gm/dL Hct (34.0-46.0) % MCV (80.0-100.0) fL MCH (25.0-35.0) pg RDW (11.5-15.5) % Macrocytosis Potassium 3.4 L (3.5-5.1) mmol/L Carbon Dioxide 32 H (22-30) mmol/L BUN 3 L (7-17) mg/dL Calcium 7.8 L (8.4-10.2) mg/dL Magnesium 1.4 L (1.6-2.3) mg/dL Procalcitonin 0.16 H (0.02-0.09) ng/mL 02/04/21 Range/Units 06:52 WBC 3.5 L (3.8-10.6) k/uL RBC 2.66 L (3.80-5.40) m/uL Hgb 9.8 L (11.4-16.0) gm/dL Hct 30.7 L (34.0-46.0) % MCV 115.5 H (80.0-100.0) fL MCH 37.0 H (25.0-35.0) pg RDW 16.6 H (11.5-15.5) % Macrocytosis Marked A Potassium (3.5-5.1) mmol/L Carbon Dioxide (22-30) mmol/L BUN (7-17) mg/dL Calcium (8.4-10.2) mg/dL Magnesium (1.6-2.3) mg/dL Procalcitonin (0.02-0.09) ng/mL
[2021-02-04 12:48] VITALS: BP 112/76; PULSE 70
[2021-02-04 13:27] VITALS: BMI 33.5
[2021-02-04] MEDS ORDERED: FUROSEMIDE 20 MG TAB PO SCH (16:00)
== END 2021-02-04 17:12 | disposition home health service (06) | DRG 689 ==
LOC: EC 17:29 → 3SCARD 23:00
PROVIDERS: ADMIT Family Medicine; ATTEND Family Medicine
DX: N30.00 Acute cystitis without hematuria (principal); I50.33 Acute on chronic diastolic (congestive) heart failure; J18.9 Pneumonia, unspecified organism; E87.1 Hypo-osmolality and hyponatremia; J98.11 Atelectasis; B96.1 Klebsiella pneumoniae [K. pneumoniae] as the cause of diseases classified elsewhere; E03.9 Hypothyroidism, unspecified; E66.01 Morbid (severe) obesity due to excess calories; E83.42 Hypomagnesemia; E86.1 Hypovolemia; E87.6 Hypokalemia; G25.81 Restless legs syndrome; I11.0 Hypertensive heart disease with heart failure; I48.91 Unspecified atrial fibrillation; K21.9 Gastro-esophageal reflux disease without esophagitis; M79.7 Fibromyalgia; T50.1X5A Adverse effect of loop [high-ceiling] diuretics, initial encounter; R79.1 Abnormal coagulation profile; W18.30XA Fall on same level, unspecified, initial encounter; K91.1 Postgastric surgery syndromes; R32 Unspecified urinary incontinence; Z68.32 Body mass index [BMI] 32.0-32.9, adult; R94.5 Abnormal results of liver function studies; Z20.822 Contact with and (suspected) exposure to COVID-19; Z79.890 Hormone replacement therapy; Z79.899 Other long term (current) drug therapy; Z82.49 Family history of ischemic heart disease and other diseases of the circulatory system; Z83.3 Family history of diabetes mellitus; Z86.73 Personal history of transient ischemic attack (TIA), and cerebral infarction without residual deficits; Z87.891 Personal history of nicotine dependence; Z90.710 Acquired absence of both cervix and uterus; Z98.84 Bariatric surgery status; Z90.49 Acquired absence of other specified parts of digestive tract; Z98.1 Arthrodesis status; Z91.041 Radiographic dye allergy status
CPT/HCPCS: 36415; 71046; 71275; 73502; 80048; 80053; 81001; 82533; 82607; 83605; 83735; 83880; 84132; 84145; 84484; 85025; 85027; 85379; 85610; 85730; 87077; 87086; 87186; 87635; 93005; 96361; 96374; 99285

== ENCOUNTER 2021-03-15 10:31 | Inpatient (IN) | payer MEDICARE ==
--- NOTE | 2021-03-15 10:57 | ED ---
General Adult HPI - General Chief complaint: Shortness of Breath Stated complaint: Weakness Time Seen by Provider: 03/15/21 10:33 Source: EMS Mode of arrival: EMS Limitations: no limitations - History of Present Illness Initial comments: Dictation was produced using [employer] dictation software. please excuse any grammatical, word or spelling errors. Chief Complaint: 65-year-old female in no significant comorbidities presents to the emergency department for weakness History of Present Illness: 65-year-old female she states that she is here today for weakness. Patient states she's been weak since January. She was at home by herself. She states she was so weak today that she was unable to get off the toilet. She called EMS was brought to the emergency department. Patient denies any pain complaints. No shortness of breath. Denies any constitutional symptoms. The ROS documented in this emergency department record has been reviewed and confirmed by me. Those systems with pertinent positive or negative responses have been documented in the HPI. All other systems are other negative and/or noncontributory. PHYSICAL EXAM: General Impression: Alert and oriented x3, not in acute distress HEENT: Normocephalic atraumatic, extra-ocular movements intact, pupils equal and reactive to light bilaterally, mucous membranes moist. Cardiovascular: Heart regular rate and rhythm Chest: Able to complete full sentences, no retractions, no tachypnea Abdomen: abdomen soft, non-tender, non-distended, no organomegaly Musculoskeletal: Pulses present and equal in all extremities, no peripheral edema Motor: no focal deficits noted Neurological: CN II-XII grossly intact, no focal motor or sensory deficits noted Skin: Intact with no visualized rashes Psych: Normal affect and mood ED course: 65 well-appearing female presents to the emergency department for weakness. States her weakness was worse today than it has been. She has chronic weakness since January. She lives at home by herself. States her children are all out of town on vacation. As not have good social situation. Vital signs upon arrival are within acceptable limits. Patient's well-appearing at bedside. Physical examination is benign. Laboratory evaluation obtained. Patient is macrocytosis of 118.5 steadily increasing. Laboratory evaluation is unremarkable. His speech is slightly elevated. Urinalysis negative. Four panel virus PCR is negative. Patient reevaluated bedside states she's too weak to take care of herself at home. Patient states that she does drink 2 bottles of wine daily. Last alcohol intake was last night. There is concern for vitamin deficiency causing the weakness. No safe disposition options for patient. She is a fall risk. Patient be admitted for medical monitoring. Patient administered thiamine. EKG interpretation: Ventricular rate 90, normal sinus rhythm, W[place] interval 118, QRS 72, QTC 440. No W[place] prolongation, no QTC prolongation, no ST or T-wave changes noted. Overall, this EKG is unremarkable - Related Data Home Medications Medication Instructions Recorded Confirmed Levothyroxine Sodium [Synthroid] 25 mcg PO DAILY 01/30/21 03/15/21 Furosemide [Lasix] 20 mg PO DAILY PRN 03/15/21 03/15/21 Multivitamin [Multivitamins Adult 1 tab PO DAILY 03/15/21 03/15/21 Gummies] Potassium Chloride ER [K-Dur 10] 10 meq PO DAILY PRN 03/15/21 03/15/21 Allergies Allergy/AdvReac Type Severity Reaction Status Date / Time furosemide [From Lasix] AdvReac CAUSES Verified 03/15/21 11:23 BLOOD PRESSURE TO DROP QUICKLY MRI CONTRAST AdvReac FLUSHING Uncoded 03/15/21 11:22 Review of Systems ROS Statement: Those systems with pertinent positive or pertinent negative responses have been documented in the HPI. ROS Other: All systems not noted in ROS Statement are negative. Past Medical History Past Medical History: Chest Pain / Angina, CVA/TIA, Fibromyalgia, GERD/Reflux, Osteoarthritis (OA) Additional Past Medical History / Comment(s): "DUMPING SYNDROME" URINARY INCO NTINENCE, TIA X3, restless leg History of Any Multi-Drug Resistant Organisms: None Reported Past Surgical History: Bariatric Surgery, Cholecystectomy, Hysterectomy, Orthopedic Surgery Additional Past Surgical History / Comment(s): HX GASTRIC BYPASS, PAIN CLINIC PROCEDURE, c3-7 fusions Past Anesthesia/Blood Transfusion Reactions: No Reported Reaction Additional Past Anesthesia/Blood Transfusion Reaction / Comment(s): REQUIRE ABOVE AVERAGE LIDOCAINE DOSE. Past Psychological History: No Psychological Hx Reported Smoking Status: Former smoker Past Alcohol Use History: Occasional Past Drug Use History: None Reported - Past Family History Father Family Medical History: Diabetes Mellitus, Myocardial Infarction ([place]) Mother Family Medical History: Cancer, Myocardial Infarction ([place]) General Exam Limitations: no limitations Course Vital Signs 03/15/21 03/15/21 03/15/21 10:34 11:18 12:50 Temperature 98.2 F 98.0 F Pulse Rate 88 87 88 Respiratory 16 16 18 Rate Blood Pressure 108/78 108/75 117/86 O2 Sat by Pulse 98 98 98 Oximetry Medical Decision Making - Lab Data Result diagrams: 03/15/21 10:56 03/15/21 10:56 Lab Results 03/15/21 03/15/21 03/15/21 Range/Units 10:49 10:56 10:56 WBC 6.1 (3.8-10.6) k/uL RBC 2.96 L (3.80-5.40) m/uL Hgb 11.4 (11.4-16.0) gm/dL Hct 35.1 (34.0-46.0) % MCV 118.5 H (80.0-100.0) fL MCH 38.7 H (25.0-35.0) pg MCHC 32.6 (31.0-37.0) g/dL RDW 17.3 H (11.5-15.5) % Plt Count 197 (150-450) k/uL MPV 8.3 Neutrophils % 48 % Lymphocytes % 39 % Monocytes % 8 % Eosinophils % 1 % Basophils % 1 % Neutrophils # 2.9 (1.3-7.7) k/uL Lymphocytes # 2.4 (1.0-4.8) k/uL Monocytes # 0.5 (0-1.0) k/uL Eosinophils # 0.1 (0-0.7) k/uL Basophils # 0.0 (0-0.2) k/uL Manual Slide Review Performed Anisocytosis Slight Macrocytosis Marked A Target Cells Present Sodium 134 L (137-145) mmol/L Potassium 4.2 (3.5-5.1) mmol/L Chloride 99 (98-107) mmol/L Carbon Dioxide 25 (22-30) mmol/L Anion Gap 10 mmol/L BUN 4 L (7-17) mg/dL Creatinine 0.55 (0.52-1.04) mg/dL Est GFR (CKD-EPI)AfAm >90 (>60 ml/min/1.73 sqM) Est GFR (CKD-EPI)NonAf >90 (>60 ml/min/1.73 sqM) Glucose 101 H (74-99) mg/dL Calcium 8.1 L (8.4-10.2) mg/dL Troponin I (0.000-0.034) ng/mL TSH 22.000 H (0.465-4.680) mIU/L Urine Color Urine Appearance (Clear) Urine pH (5.0-8.0) Ur Specific [place] (1.001-1.035) Urine Protein (Negative) Urine Glucose (UA) (Negative) Urine Ketones (Negative) Urine Blood (Negative) Urine Nitrite (Negative) Urine Bilirubin (Negative) Urine Urobilinogen (<2.0) mg/dL Ur Leukocyte Esterase (Negative) Urine RBC (0-5) /hpf Urine WBC (0-5) /hpf Ur Squamous Epith Cells (0-4) /hpf Urine Bacteria (None) /hpf Influenza Type A (PCR) Not Detected (Not Detectd) Influenza Type B (PCR) Not Detected (Not Detectd) RSV (PCR) Not Detected (Not Detectd) SARS-CoV-2 (PCR) Not Detected (Not Detectd) 03/15/21 03/15/21 Range/Units 11:10 12:50 WBC (3.8-10.6) k/uL RBC (3.80-5.40) m/uL Hgb (11.4-16.0) gm/dL Hct (34.0-46.0) % MCV (80.0-100.0) fL MCH (25.0-35.0) pg MCHC (31.0-37.0) g/dL RDW (11.5-15.5) % Plt Count (150-450) k/uL MPV Neutrophils % % Lymphocytes % % Monocytes % % Eosinophils % % Basophils % % Neutrophils # (1.3-7.7) k/uL Lymphocytes # (1.0-4.8) k/uL Monocytes # (0-1.0) k/uL Eosinophils # (0-0.7) k/uL Basophils # (0-0.2) k/uL Manual Slide Review Anisocytosis Macrocytosis Target Cells Sodium (137-145) mmol/L Potassium (3.5-5.1) mmol/L Chloride (98-107) mmol/L Carbon Dioxide (22-30) mmol/L Anion Gap mmol/L BUN (7-17) mg/dL Creatinine (0.52-1.04) mg/dL Est GFR (CKD-EPI)AfAm (>60 ml/min/1.73 sqM) Est GFR (CKD-EPI)NonAf (>60 ml/min/1.73 sqM) Glucose (74-99) mg/dL Calcium (8.4-10.2) mg/dL Troponin I <0.012 (0.000-0.034) ng/mL TSH (0.465-4.680) mIU/L Urine Color Light Yellow Urine Appearance Clear (Clear) Urine pH 5.0 (5.0-8.0) Ur Specific [place] 1.002 (1.001-1.035) Urine Protein Negative (Negative) Urine Glucose (UA) Negative (Negative) Urine Ketones Negative (Negative) Urine Blood Negative (Negative) Urine Nitrite Negative (Negative) Urine Bilirubin Negative (Negative) Urine Urobilinogen <2.0 (<2.0) mg/dL Ur Leukocyte Esterase Moderate H (Negative) Urine RBC 1 (0-5) /hpf Urine WBC 8 H (0-5) /hpf Ur Squamous Epith Cells 1 (0-4) /hpf Urine Bacteria Occasional H (None) /hpf Influenza Type A (PCR) (Not Detectd) Influenza Type B (PCR) (Not Detectd) RSV (PCR) (Not Detectd) SARS-CoV-2 (PCR) (Not Detectd) Disposition Clinical Impression: Weakness Disposition: ADMITTED IP TO THIS HOSP Condition: Fair Referrals: Brianne Snyder DO [Primary Care Provider] - 1-2 days
--- NOTE | 2021-03-15 11:13 | XR ---
EXAMINATION TYPE: XR chest 1V portable DATE OF EXAM: 03/15/2021 COMPARISON: Chest x-ray 02/02/2021 HISTORY: Difficulty breathing TECHNIQUE: Single frontal view of the chest is obtained. FINDINGS: Elevation of right hemidiaphragm is again noted. There is interval improved aeration at th e left lung base. Cardiac mediastinal silhouette is within normal limits and stable. No evident pneum othorax. There are overlying leads. IMPRESSION: Interval improvement in aeration. No acute cardiopulmonary disease is evident.
[2021-03-15 11:29] LABS: African American GFR (CKD) >90 (>60 ml/min/1.73 sqM); Anion Gap 10 mmol/L; Blood Urea Nitrogen 4 mg/dL (7-17); Calcium 8.1 mg/dL (8.4-10.2); Carbon Dioxide 25 mmol/L (22-30); Chloride 99 mmol/L (98-107); Glucose 101 mg/dL (74-99); Non-African American GFR(CKD) >90 (>60 ml/min/1.73 sqM); Potassium 4.2 mmol/L (3.5-5.1); Sodium 134 mmol/L (137-145)
[2021-03-15 11:43] LABS: Anisocytosis Slight; Basophils % (A) 1 %; Eosinophils # (A) 0.1 k/uL (0-0.7); Eosinophils % (A) 1 %; HCT 35.1 % (34.0-46.0); HGB 11.4 gm/dL (11.4-16.0); Lymphocytes # (A) 2.4 k/uL (1.0-4.8); Lymphocytes % (A) 39 %; MCH 38.7 pg (25.0-35.0); MCHC 32.6 g/dL (31.0-37.0); MCV 118.5 fL (80.0-100.0); Macrocytosis Marked; Mean Platelet Volume 8.3; Monocytes # (A) 0.5 k/uL (0-1.0); Monocytes % (A) 8 %; Neutrophils # (A) 2.9 k/uL (1.3-7.7); Neutrophils % (A) 48 %; Platelet Count 197 k/uL (150-450); RBC 2.96 m/uL (3.80-5.40); RDW 17.3 % (11.5-15.5); WBC 6.1 k/uL (3.8-10.6)
[2021-03-15 12:24] LABS: Target Cells Present
[2021-03-15 13:12] LABS: Appearance,Urine Clear (Clear); Bacteria,Urine Occasional /hpf; Bilirubin,Urine Negative (Negative); Blood,Urine Negative (Negative); Color,Urine Light Yellow; Glucose,Urine (UA) Negative (Negative); Ketones,Urine Negative (Negative); Leukocyte Esterase,Urine Moderate (Negative); Nitrite,Urine Negative (Negative); Protein,Urine Negative (Negative); RBC,Urine 1 /hpf (0-5); Specific Gravity,Urine 1.002 (1.001-1.035); Squamous Epithelial Cell,Urine 1 /hpf (0-4); Urobilinogen,Urine <2.0 mg/dL (<2.0); WBC,Urine 8 /hpf (0-5)
[2021-03-15] MEDS ORDERED: THIAMINE 200 MG in SODIUM CHLORIDE 0.9% 100 ML IVPB STA (13:16)
[2021-03-15] MEDS ORDERED: NALOXONE 0.4 MG/ML 1 ML VIAL IV PRN (14:44)
[2021-03-15] MEDS: SODIUM CHLORIDE 0.9% 1,000 ML IV SCH (19:51)
[2021-03-16] MEDS: LEVOTHYROXINE 25 MCG TAB PO SCH (06:00)
[2021-03-16] MEDS: THIAMINE 100 MG TAB PO SCH (12:19)
--- NOTE | 2021-03-16 15:49 | P.CNNES ---
History of Present Illness Consult date: 03/16/21 Requesting physician: Stanton Camara Reason for Consult: leg weakness History of Present Illness: This is a 65-year-old woman with medical history of C3 to C7 fusion, TIA, hypothyroidism, fibromyalgia, angina, gastric bypass osteoarthritis and alcohol use who presented emergency department on 03/16/2021 for leg weakness. Patient is a poor historian. According to the patient she's been having leg weakness mostly proximal thigh for last 1 year and a half and she feels its progressing. She is also having the lower back pain that it's chronic that's radiating to the buttocks region right more than left. She stated that the yesterday in the morning she was a sitting on a chair and had a difficulty getting up from the chair for 3 hours. She denies any bladder or bowel incontinence. Denies any weakness of upper extremities or visual disturbance or difficulty swallowing. She said that she has numbness on the tips of the toe and it's been going on for last 1 year and is both toes. Otherwise she denies any numbness tingling that a standing up or any numbness tingling in the upper extremity. She has been using a walker at home. She denies a noticing any twitching of her upper or lower extremity. She said that she has not woman with Dr. Tanya goodson a week from now. She said that she saw him in the past but does not remember why she saw him before. She is not sure if she had EMG with nerve conduction in the past. She drinks about 1 bottle of wine daily for years and she feels depressed. She lives by herself. Patient timeline seems very inconsistent and upon asking the patient to exactly timeline she stated that she has poor memory and does not recall. She denies having fluctuation of her symptoms throughout the day at. Denies of having any diplopia or ptosis of the eyes at. Again denies any dysphagia. She could not tell me if the any family history had that a similar problem like this before. Some other workup in the hospital consisted of: Initial vital signs: Blood pressure of 107/78, heart rate of 88, respiratory of 16, temperature of 98.2 Fahrenheit oral and pulse ox of 98% room air. CBC with differential is MCV 118 which is elevated. The hemoglobin is 11.4 hematocrit is 35.1 which is within normal limits. MCH: 38.7 which is elevated RDW 17 with 3 which is elevated. Chemistry panel: Sodium was 134 which is minimally low and the calcium is 8.1 which is low. TSH of 22 which is elevated but the free T4 is 1.0 which is considered within normal limits. Otherwise glucose is 101, potassium 4.2 seems unremarkable. Review of Systems Review of system: The 12 point system was reviewed and apparent positive and negative per HPI. Past Medical History Past Medical History: Chest Pain / Angina, CVA/TIA, Fibromyalgia, GERD/Reflux, Osteoarthritis (OA) Additional Past Medical History / Comment(s): "DUMPING SYNDROME" URINARY INCONTINENCE, TIA X3, restless leg History of Any Multi-Drug Resistant Organisms: None Reported Past Surgical History: Bariatric Surgery, Cholecystectomy, Hysterectomy, Orthopedic Surgery Additional Past Surgical History / Comment(s): HX GASTRIC BYPASS, PAIN CLINIC PROCEDURE, c3-7 fusions Past Anesthesia/Blood Transfusion Reactions: No Reported Reaction Additional Past Anesthesia/Blood Transfusion Reaction / Comment(s): REQUIRE ABOVE AVERAGE LIDOCAINE DOSE. Past Psychological History: No Psychological Hx Reported Smoking Status: Former smoker Past Alcohol Use History: Occasional Past Drug Use History: None Reported - Past Family History Father Family Medical History: Diabetes Mellitus, Myocardial Infarction ([place]) Mother Family Medical History: Cancer, Myocardial Infarction ([place]) Medications and Allergies Home Medications Medication Instructions Recorded Confirmed Type Levothyroxine Sodium [Synthroid] 25 mcg PO DAILY 01/30/21 03/15/21 History Furosemide [Lasix] 20 mg PO DAILY PRN 03/15/21 03/15/21 History Multivitamin [Multivitamins Adult 1 tab PO DAILY 03/15/21 03/15/21 History Gummies] Potassium Chloride ER [K-Dur 10] 10 meq PO DAILY PRN 03/15/21 03/15/21 History Allergies Allergy/AdvReac Type Severity Reaction Status Date / Time furosemide [From Lasix] AdvReac CAUSES Verified 03/15/21 11:23 BLOOD PRESSURE TO DROP QUICKLY MRI CONTRAST AdvReac FLUSHING Uncoded 03/15/21 11:22 Physical Examination - Vital Signs Vital Signs: Vital Signs Temp Pulse Pulse Resp BP BP Pulse Ox 03/16/21 12:18 98.1 F 95 16 101/67 98 03/16/21 08:45 92 18 03/16/21 08:00 98.2 F 03/16/21 03:39 98.3 F 92 18 100/65 94 L 03/15/21 20:00 98.4 F 91 16 125/85 99 03/15/21 17:20 18 03/15/21 16:05 98 F 88 18 95/69 97 03/15/21 15:07 98.2 F 87 17 105/77 99 Intake and Output 03/15/21 03/16/21 03/16/21 22:59 06:59 14:59 Intake Total 160 740 Balance 160 740 Intake: Intake, IV Titration 240 Amount Sodium Chloride 0.9% 1, 240 000 ml @ 20 mls/hr IV . Q24H JENNIFER Rx#:[id number] Oral 160 500 Other: Voiding Method Toilet Toilet # Voids 1 2 Weight 79.379 kg GENERAL: The patient is lying in bed and is not in acute distress. CHEST: The heart rate is regular rate rhythm. No murmurs to auscultation. No carotid bruit bilaterally. LUNG: Clear to auscultation bilaterally no wheezing noted throughout. Not labored breathing. ABDOMEN/GI: Bowel sounds present in all 4 quadrants. No tenderness to palpation throughout. PSYCH: Flat affect. NEUROLOGICAL: Higher mental function: The patient is awake, alert, oriented to self, place and time. Patient is following commands. No aphasia and no neglect. Cranial nerves: The pupils are round, equal and reactive to light and accommodation. Visual sandra are full to confrontation throughout. Extraocular movement is intact no nystagmus is noted. Facial sensation is normal to touch throughout. The facial strength is normal throughout. Hearing is mildly to moderate decreased bilaterally to hand rub. Tongue is midline and moved [id number] without any difficulty. No dysarthria is noted. Shoulder shrug is normal bilaterally. Motor: Gait: Able to walk on her own without assistance but seems was wobbly walking but was not swaying towards one side or the other and was able to walk u nassistance close to our of her room and back. The strength is proximal upper seemed 5- bilaterally while hand security screener are 5/5.While bilateral hips are 4-/5 bilaterally while distally is 4+ to 5-/5. Normal tone and bulk. No sponatenous movement. Cerebellum: Normal finger to nose bilaterally. Sensation: Sensation is normal to touch throughout. Reflexes (right/left): Left patellar is 1+, ankles are 1+ bilaterally. Otherwise 2+ throughout. Plantars are downgoing bilaterally. Results Influenza A/B PCR as well as RCV PCR and SARS-COV-2 PCR is not detected. - Laboratory Findings CBC and BMP: 03/15/21 10:56 03/15/21 10:56 Abnormal Lab Findings: Abnormal Labs 03/15/21 03/15/21 03/15/21 10:56 10:56 10:56 RBC 2.96 L MCV 118.5 H MCH 38.7 H RDW 17.3 H Macrocytosis Marked A Sodium 134 L BUN 4 L Glucose 101 H Calcium 8.1 L TSH 22.000 H Free T3 pg/mL 2.5 L Ur Leukocyte Esterase Urine WBC Urine Bacteria 03/15/21 12:50 RBC MCV MCH RDW Macrocytosis Sodium BUN Glucose Calcium TSH Free T3 pg/mL Ur Leukocyte Esterase Moderate H Urine WBC 8 H Urine Bacteria Occasional H Assessment and Plan Assessment: Bilateral proximal lower extremity weakness for the past 1 1/2 years and progressively worsening. Unknown exact etiology at this time. Hypocalcemia History of TIA Hypothyroidism Chronic alcohol use (drinks 1 bottle wine daily). Fibromyalgia History of angina History of gastric bypass Osteoarthritis Plan: I ordered ionized calcium, magnesium level, vitamin B12, folate level and HbA1c. Ordered CPK level. Ordered MRI Lumbar w/ and w/o and CT head. Physical therapy and occupation therapy are consulted. [id number] neuro checks. Patient is on thiamine 100 mg daily. Patient is on CIWA protocol and will defer management to the primary team. The patient was counseled on alcohol cessation. We'll defer the rest of the medical management to primary team. Upon discharge the patient needs to follow-up with her neurologist (Dr. Martínez), which she has an appointment in a week. Recommend EMG with [facility] as outpatient. The plan is discussed with the patient and her nurse. Thank you for the consultation. Ravinder White M.D. Neuro-hospitalist Time with Patient: Greater than 30
[2021-03-16 16:35] LABS: Ionized Calcium 4.5 mg/dL (4.5-5.3)
[2021-03-16] MEDS: SODIUM CHLORIDE 0.9% 1,000 ML IV SCH (17:21)
--- NOTE | 2021-03-16 18:25 | CT ---
EXAMINATION TYPE: CT brain wo con DATE OF EXAM: 03/16/2021 COMPARISON: None HISTORY: weakness, confusion CT DLP: 1097 mGycm Automated exposure control for dose reduction was used. There is cerebral cortical atrophy. There is no mass effect nor midline shift. There is no sign of in tracranial hemorrhage. There is normal aeration of the mastoid sinuses. The calvarium is intact. Ther e is no evidence of cerebral edema. IMPRESSION: Cerebral atrophy. No acute intracranial abnormality.
--- NOTE | 2021-03-16 23:56 | P.HPIM ---
History of Present Illness H&P Date: 03/16/21 Chief Complaint: leg weakness Shyann Wynn is a 65 yo F with hx cervical fusion, TIA, alcohol abuse who presented to the ED with worsening weakness, unable to get up off the floor. She states that over the past few months and worsening more recently she has been experiencing leg weakness. This is most pronounced when she tries to stand. She denies any leg pain or numbness. Pt does drink 1 bottle of wine daily. She had an outpatient appt with Neurology scheduled next week for this issue but she was not able to get up off the floor of her house so called EMS. On presentation vitals stable, labs with high MCV, TSH 22, calcium 8.1. Review of Systems All systems: negative Constitutional: Denies chills, Denies fever Eyes: denies blurred vision, denies pain Ears, nose, mouth and throat: Denies headache, Denies sore throat Cardiovascular: Denies chest pain, Denies shortness of breath Respiratory: Denies cough Gastrointestinal: Denies abdominal pain, Denies diarrhea, Denies nausea, Denies vomiting Genitourinary: Denies dysuria, Denies hematuria Musculoskeletal: Denies myalgias Integumentary: Denies pruritus, Denies rash Neurological: Reports transient paralysis, Reports weakness, Denies numbness, Denies sensory deficit Psychiatric: Denies anxiety, Denies depression Endocrine: Denies fatigue, Denies weight change Past Medical History Past Medical History: Chest Pain / Angina, CVA/TIA, Fibromyalgia, GERD/Reflux, Osteoarthritis (OA) Additional Past Medical History / Comment(s): "DUMPING SYNDROME" URINARY INCONTINENCE, TIA X3, restless leg History of Any Multi-Drug Resistant Organisms: None Reported Past Surgical History: Bariatric Surgery, Cholecystectomy, Hysterectomy, Orthopedic Surgery Additional Past Surgical History / Comment(s): HX GASTRIC BYPASS, PAIN CLINIC PROCEDURE, c3-7 fusions Past Anesthesia/Blood Transfusion Reactions: No Reported Reaction Additional Past Anesthesia/Blood Transfusion Reaction / Comment(s): REQUIRE ABOVE AVERAGE LIDOCAINE DOSE. Past Psychological History: No Psychological Hx Reported Smoking Status: Former smoker Past Alcohol Use History: Occasional Past Drug Use History: None Reported - Past Family History Father Family Medical History: Diabetes Mellitus, Myocardial Infarction ([place]) Mother Family Medical History: Cancer, Myocardial Infarction ([place]) Medications and Allergies Home Medications Medication Instructions Recorded Confirmed Type Levothyroxine Sodium [Synthroid] 25 mcg PO DAILY 01/30/21 03/15/21 History Furosemide [Lasix] 20 mg PO DAILY PRN 03/15/21 03/15/21 History Multivitamin [Multivitamins Adult 1 tab PO DAILY 03/15/21 03/15/21 History Gummies] Potassium Chloride ER [K-Dur 10] 10 meq PO DAILY PRN 03/15/21 03/15/21 History Allergies Allergy/AdvReac Type Severity Reaction Status Date / Time furosemide [From Lasix] AdvReac CAUSES Verified 03/15/21 11:23 BLOOD PRESSURE TO DROP QUICKLY MRI CONTRAST AdvReac FLUSHING Uncoded 03/15/21 11:22 Physical Exam Vitals: Vital Signs Temp Pulse Resp BP Pulse Ox 03/16/21 20:34 98.2 F 70 18 104/71 92 L 03/16/21 12:18 98.1 F 95 16 101/67 98 03/16/21 08:45 92 18 03/16/21 08:00 98.2 F 03/16/21 03:39 98.3 F 92 18 100/65 94 L Intake and Output 03/16/21 03/16/21 03/17/21 14:59 22:59 06:59 Intake Total 240 Balance 240 Intake: Oral 240 Other: Voiding Method Toilet # Voids 4 General: well nourished, well developed, NAD. Vitals reviewed Eyes: PERRL, EOMI, conjunctiva normal HENT: normocephalic, mucus membranes moist Neck: supple, no JVD Lungs: normal respiratory effort, no wheezes or rales CV: Regular rate and rhythm, no murmur. Peripheral pulses 2+ Abdomen: soft, nondistended, no organomegaly MSK: Cody LE str 3/5 proximal, 4/5 distal Skin: warm and dry. Neuro: A&Ox3, normal mood and affect Results CBC & Chem 7: 03/15/21 10:56 03/15/21 10:56 Thrombosis Risk Factor Assmnt - Choose All That Apply Each Risk Factor Represents 2 Points: Age 61-74 years Thrombosis Risk Factor Assessment Total Risk Factor Score: 2 Thrombosis Risk Factor Assessment Level: Low Risk Assessment and Plan Plan: 1. Lower extremity weakness, suspected neuropathy. Suspect related to alcoholic vitamin deficiency. Neurology consult for further evaluation. Start Thiamine and B complex supplementation. Continue to monitor 2. Hypothyroism. With elevated TSH. Continue home synthroid, will need to recheck thyroid levels 3. Macrocytosis. Check B12 and folate per Neurology
[2021-03-17 00:28] LABS: Hemoglobin A1C 3.9 % (4.0-6.0)
[2021-03-17] MEDS: LEVOTHYROXINE 25 MCG TAB PO SCH (06:02)
[2021-03-17 06:53] LABS: Folate, Serum 4.6 ng/mL
[2021-03-17] MEDS: THIAMINE 100 MG TAB PO SCH (08:59)
--- NOTE | 2021-03-17 14:10 | P.CRDCN ---
History of Present Illness History of present illness: HISTORY OF PRESENTING ILLNESS This is a pleasant 65-year-old female past medical history significant for TIA, hypothyroidism, gastric bypass, fibromyalgia, hypertension as well as hypotension and lower extremity edema, daily alcohol use. She follows in the office with Dr. Sweet. We have been asked to see in consultation for orthostatic hypotension. Patient presents to the hospital with complaints of bilateral leg weakness. Patient states she's been having leg weakness "forever" she states that over the past 1 year and a half and she feels its progressing. She is also having the lower back pain that it's chronic that's radiating to the buttocks region right more than left. She stated that the yesterday in the morning she was a sitting on a chair and had a difficulty getting up from the chair for 3 hours. She slid to the floor because she states she could not stand, she crawled to her bed. 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 She states she occasionally has dizziness. She denies chest pain, palpitations, lightheadedness, shortness of breath. She has been having lower extremity edema, and has been working with Dr. Sweet and her primary with this. She denies any bladder or bowel incontinence. Denies any weakness of upper extremities or visual disturbance or difficulty swallowing. She denies history of [place], Diabetes, or coronary artery disease. She denies family history of cardiac disease. She is a non-smoker. She drinks daily minimum is 1 bottle of wine per day. Denies illicit drug use. She states she has been previously on Lasix PO 20mg PRN however has not taken this in over a week due to hypotension DIAGNOSTICS EKG reveals sinus rhythm, heart rate 90, nonspecific STT wave abnormalities. Chest xray no acute cardiopulmonary process. CT brain was negative for any acute intracranial abnormality. Cardiac catheterization in 2017 revealed nonobstructive CAD Echocardiogram in 2017 revealed EF 55-60%, LA severely dilated, mild that she regurgitation, moderate tricuspid regurgitation, aneursysmal interatrial septum Laboratory reviewed, troponin negative 1, WBC 6.1, hemoglobin 11.4, platelets 197, sodium 134, potassium 4.2, bili 1.4, serum creatinine 0.5, TSH 22, free T3 2.5, free T4 1.0, viral PCR negative Current cardiac medications include Lasix 20 mg daily when necessary, Synthroid 25 g daily, multivitamin, potassium chloride 20 mEq daily. REVIEW OF SYSTEMS At the time of my exam: CONSTITUTIONAL: Denies fever or chills. CARDIOVASCULAR: Denies chest pain, shortness of breath, orthopnea, PND or palpitations. RESPIRATORY: Denies cough. GASTROINTESTINAL: Denies abdominal pain, diarrhea, constipation, nausea or vomiting. MUSCULOSKELETAL: Denies myalgias. NEUROLOGIC: Positive dizziness, positive weakness Denies numbness, tingling, headacbe ENDOCRINE: Denies fatigue, weight change, polydipsia or polyurina. GENITOURINARY: Denies burning, hematuria or urgency with micturation. HEMATOLOGIC: Denies history of anemia or bleeding. PHYSICAL EXAMINATION Blood pressure 94/58 heart rate 82 afebrile and maintaining oxygen saturation 97% on room air CONSTITUTIONAL: No apparent distress. HEENT: Head is normocephalic. Pupils are equal, round. No JVD. No carotid bruit. CHEST EXAMINATION: Lungs are clear to auscultation. No chest wall tenderness is noted on palpation or with deep breathing. HEART EXAMINATION: Regular rate and rhythm. S1, S2 heard. No murmurs, gallops or rub. ABDOMEN: Soft, nontender. Positive bowel sounds. EXTREMITIES: 2+ peripheral pulses, 2+ bilateral lower extremity edema and no calf tenderness. NEUROLOGIC EXAMINATION: Patient is awake, alert and oriented x3. ASSESSMENT Orthostatic Hypotension Bilateral leg weakness Dizziness Alcohol abuse PLAN Obtain 2D echo Increase synthroid to 50mcg Start IV fluids NaCl 75mL/hr Start midodrine Further recommendations based on clinical course Nurse Practitioner note has been reviewed, I agree with a documented findings and plan of care. Patient was seen and examined. Past Medical History Past Medical History: Chest Pain / Angina, CVA/TIA, Fibromyalgia, GERD/Reflux, Osteoarthritis (OA) Additional Past Medical History / Comment(s): "DUMPING SYNDROME" URINARY INCONTINENCE, TIA X3, restless leg History of Any Multi-Drug Resistant Organisms: None Reported Past Surgical History: Bariatric Surgery, Cholecystectomy, Hysterectomy, Orthopedic Surgery Additional Past Surgical History / Comment(s): HX GASTRIC BYPASS, PAIN CLINIC PROCEDURE, c3-7 fusions Past Anesthesia/Blood Transfusion Reactions: No Reported Reaction Additional Past Anesthesia/Blood Transfusion Reaction / Comment(s): REQUIRE ABOVE AVERAGE LIDOCAINE DOSE. Past Psychological History: No Psychological Hx Reported Smoking Status: Former smoker Past Alcohol Use History: Occasional Past Drug Use History: None Reported - Past Family History Father Family Medical History: Diabetes Mellitus, Myocardial Infarction ([place]) Mother Family Medical History: Cancer, Myocardial Infarction ([place]) Medications and Allergies Home Medications Medication Instructions Recorded Confirmed Type Levothyroxine Sodium [Synthroid] 25 mcg PO DAILY 01/30/21 03/15/21 History Furosemide [Lasix] 20 mg PO DAILY PRN 03/15/21 03/15/21 History Multivitamin [Multivitamins Adult 1 tab PO DAILY 03/15/21 03/15/21 History Gummies] Potassium Chloride ER [K-Dur 10] 10 meq PO DAILY PRN 03/15/21 03/15/21 History Allergies Allergy/AdvReac Type Severity Reaction Status Date / Time furosemide [From Lasix] AdvReac CAUSES Verified 03/15/21 11:23 BLOOD PRESSURE TO DROP QUICKLY MRI CONTRAST AdvReac FLUSHING Uncoded 03/15/21 11:22 Physical Exam Vitals: Vital Signs Temp Pulse Pulse Pulse Pulse Resp BP 03/17/21 10:47 108 H 91 108 H 92/71 03/17/21 05:07 97.9 F 82 16 03/16/21 20:34 98.2 F 70 18 03/16/21 12:18 98.1 F 95 16 BP BP BP Pulse Ox 03/17/21 10:47 74/65 93/65 03/17/21 05:07 94/58 97 03/16/21 20:34 104/71 92 L 03/16/21 12:18 101/67 98 Intake and Output 03/16/21 03/17/21 03/17/21 22:59 06:59 14:59 Intake Total 240 Balance 240 Intake: Oral 240 Other: Voiding Method Toilet # Voids 1 Results 03/15/21 10:56 03/15/21 10:56 Current Medications Generic Name Dose Route Start Last Admin Trade Name Freq PRN Reason Stop Dose Admin Sodium Chloride 1,000 mls @ 20 mls/hr 03/15/21 14:45 03/16/21 17:21 Saline 0.9% IV 20 mls/hr .Q24H JENNIFER Administration Levothyroxine Sodium 37.5 mcg 03/18/21 06:30 Levothyroxine 25 Mcg Tab PO DAILY@0630 JENNIFER Naloxone HCl 0.2 mg 03/15/21 14:44 Naloxone 0.4 Mg/Ml 1 Ml Vial IV Q2M PRN Opioid Reversal Thiamine HCl 100 mg 03/16/21 10:30 03/17/21 08:59 Thiamine 100 Mg Tab PO 100 mg DAILY JENNIFER Administration Intake and Output 03/16/21 03/17/21 03/17/21 22:59 06:59 14:59 Intake Total 240 Balance 240 Intake: Oral 240 Other: Voiding Method Toilet # Voids 1 03/15/21 10:56 03/15/21 10:56
[2021-03-17] MEDS: SODIUM CHLORIDE 0.9% 1,000 ML IV SCH (14:47)
--- NOTE | 2021-03-17 16:31 | P.PN ---
Subjective Progress Note Date: 03/17/21 Shyann Wynn is a 65 yo F with hx cervical fusion, TIA, alcohol abuse who presented to the ED with worsening weakness, unable to get up off the floor. She states that over the past few months and worsening more recently she has been experiencing leg weakness. This is most pronounced when she tries to stand. She denies any leg pain or numbness. Pt does drink 1 bottle of wine daily. She had an outpatient appt with Neurology scheduled next week for this issue but she was not able to get up off the floor of her house so called EMS. On presentation vitals stable, labs with high MCV, TSH 22, calcium 8.1. 03/17/2021 mild orthostatic hypotension, symptomatic. Maintained on CIWA protocol with current score 0. Evaluated by neurology with recommendations noted and appreciated. MRI pending. Objective - Vital Signs Vital signs: Vital Signs Temp 98.5 F 03/17/21 12:53 Pulse 87 03/17/21 12:53 Resp 16 03/17/21 12:53 BP 112/73 03/17/21 12:53 Pulse Ox 97 03/17/21 12:53 Intake & Output 03/16/21 03/17/21 03/17/21 18:59 06:59 18:59 Intake Total 240 240 Balance 240 240 Intake: Oral 240 240 Other: Voiding Method Toilet Toilet Toilet # Voids 4 1 1 - Exam General: Sitting up in bed, NAD. Vitals reviewed Eyes: PERRL, EOMI, conjunctiva normal, HENT: normocephalic, mucus membranes moist Neck: supple, no JVD Lungs: normal respiratory effort, no wheezes or rales CV: Regular rate and rhythm, no murmur. Peripheral pulses 2+ Abdomen: soft, nondistended, no organomegaly MSK: Cody LE str 3/5 proximal, 4/5 distal Skin: warm and dry. 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 Neuro workup in progress/MRI pending. Levothyroxine increased to 37.5mcg. 2-D echo ordered/ Cardiology consulted regarding orthostatic hypotension. Maintain seawall protocol. Discharge planning in progress for tomorrow to subacute rehab as recommended per PT. The impression and plan of care has been dictated as directed. : I performed a history and examination of this patient, discussed the same with the dictator. I agree with the dictator's note ,documented as a scribe. Any additional findings or plans will be noted.
--- NOTE | 2021-03-17 17:29 | P.PN ---
Subjective Progress Note Date: 03/17/21 The patient seen at bedside and she said that she's feeling more awake alert and she feels better today compared to her initial presentation. She denies of any new neurological deficits. Patient's orthostatic is supine is 93/65 with a heart rate of 108 then sitting is 92/71 with a heart rate of 108 and then standing is is 74/65 with a heart rate of 91 which is there is a significant drop off the the systolic blood pressure from sitting to standing. As a result of primary team consulted the cardiology team for positive orthostatic hypertension and the patient is on Midrin drain 5 mg by mouth 3 ti mes a day started by cardiology. Objective - Vital Signs Vital signs: Vital Signs Temp 98.5 F 03/17/21 12:53 Pulse 87 03/17/21 12:53 Resp 16 03/17/21 12:53 BP 112/73 03/17/21 12:53 Pulse Ox 97 03/17/21 12:53 Intake & Output 03/16/21 03/17/21 03/17/21 18:59 06:59 18:59 Intake Total 240 240 Balance 240 240 Intake: Oral 240 240 Other: Voiding Method Toilet Toilet Toilet # Voids 4 1 1 - Exam GENERAL: The patient is lying in bed and is not in acute distress. PSYCH: Flat affect. NEUROLOGICAL: Higher mental function: The patient is awake, alert, oriented to self, place and time. Patient is following commands. No aphasia and no neglect. Cranial nerves: The pupils are round, equal and reactive to light and accommodation. Visual sandra are full to confrontation throughout. Extraocular movement is intact no nystagmus is noted. Facial sensation is normal to touch throughout. The facial strength is normal throughout. Hearing is mildly to moderate decreased bilaterally to hand rub. Tongue is midline and moved [id number] without any difficulty. No dysarthria is noted. Shoulder shrug is normal bilaterally. Motor: Gait: Deferred. The strength is proximal upper seemed 5- bilaterally while hand delivery nurse are 5/5.While bilateral hips are 4-/5 bilaterally while distally is 4+ to 5-/5. Normal tone and bulk. No sponatenous movement. Cerebellum: Normal finger to nose bilaterally. Sensation: Sensation is normal to touch throughout. Reflexes (right/left): Left patellar is 1+, ankles are 1+ bilaterally. Otherwise 2+ throughout. Plantars are downgoing bilaterally. LABS/IMAGING: Vitamin B12 level is 275 (normal is 200-944) and this is considered low normal. Serum Folate level is 4.6 which is the considered deficient normal is more than 5.38. While rbc folate is 499 (normal 280-791) Ionized calcium is 4.5 (borderline normal). Hemoglobin A1c is 3.9 which is considered low CK level 28 which is considered within normal limits Parathyroid hormone level is 89.[address] of the head is reported as cerebral atrophy. No acute intracranial normality. - Labs CBC & Chem 7: 03/15/21 10:56 03/15/21 10:56 Labs: Abnormal Lab Results - Last 24 Hours (Table) 03/16/21 03/16/21 Range/Units 16:17 16:17 Hemoglobin A1c 3.9 L (4.0-6.0) % PTH Intact 89.8 H (14.0-72.0) pg/mL Assessment and Plan Assessment: Bilateral proximal lower extremity weakness for the past 1 1/2 years and progressively worsening. Unknown exact etiology at this time. Unsure if component due to nutrition deficiency (low vitamin B12 and folate deficiency) and suspected orthostatic hypotension. Vitamin B12 level is 275 (normal is 200-944) and this is considered low normal. Folate level is 4.6 which is the considered deficient normal is more than 5.38. Hypocalcemia History of TIA Hypothyroidism Chronic alcohol use (drinks 1 bottle wine daily). Fibromyalgia History of angina History of gastric bypass Osteoarthritis Plan: Started the patient on vitamin B12 1000 g IM once today and then by mouth starting tomorrow daily. Also started the patient on folic acid 1 mg daily Pending MRI Lumbar w/ and w/o. Physical therapy and occupation therapy are consulted. Recommend repeating orthostatic vitals to make sure it's accurate positive orthostatic since to be a positive orthostatic there needs to be a drop of systolic more than 20 and diastolic more than 10. Cardiology started the patient on midodrine. [id number] neuro checks. Patient is on thiamine 100 mg daily. Patient is on CIWA protocol and will defer management to the primary team. The patient was counseled on alcohol cessation. We'll defer the rest of the medical management to primary team. Upon discharge the patient needs to follow-up with her neurologist (Dr. Martínez), which she has an appointment in a week. Recommend EMG with [facility] as outpatient. The plan is discussed with the patient and her nurse. Ravinder White M.D. Neuro-hospitalist Time with Patient: Less than 30
[2021-03-17] MEDS ORDERED: CYANOCOBALAMIN 1,000 MCG/ML 1 ML VIAL IM ONE (18:00)
[2021-03-17] MEDS: FOLIC ACID 1 MG TAB PO SCH (18:03)
[2021-03-17] MEDS: MIDODRINE 5 MG TAB PO SCH (18:03)
--- NOTE | 2021-03-18 04:15 | MR ---
EXAMINATION TYPE: MR lumbar spine wo con DATE OF EXAM: 03/17/2021 COMPARISON: None HISTORY: LBP, leg weakness. Multiplanar multiecho imaging of the lumbar spine without contrast. Vertebra have normal alignment. There is narrowing of the disc spaces at L2-3 and L3-4. There is smal l posterior and anterior disc bulging at L2-3 and L3-4. There is no lumbar paraspinal mass. The neura l foramina are fairly well-maintained. There is no significant spinal stenosis. There is no compressi on fracture. Lumbar nerve roots appear fairly normal. I see no bony destructive process. IMPRESSION: Spondylotic changes mainly at L2-3 and L3-4. No significant spinal stenosis. Minimal posterior disc b ulging without significant encroachment on the neural elements. No fracture.
[2021-03-18] MEDS: LEVOTHYROXINE 75 MCG TAB PO SCH (05:54)
[2021-03-18] MEDS: SODIUM CHLORIDE 0.9% 1,000 ML IV SCH ×2 (05:55→17:15)
[2021-03-18] MEDS ORDERED: LEVOTHYROXINE 25 MCG TAB PO SCH (06:30)
[2021-03-18] MEDS ORDERED: LEVOTHYROXINE 50 MCG TAB PO SCH (06:30)
[2021-03-18] MEDS: FOLIC ACID 1 MG TAB PO SCH (07:59)
[2021-03-18] MEDS: MIDODRINE 5 MG TAB PO SCH ×3 (07:59→17:15)
[2021-03-18] MEDS: CYANOCOBALAMIN 500 MCG TAB PO SCH (07:59)
[2021-03-18] MEDS: THIAMINE 100 MG TAB PO SCH (07:59)
--- NOTE | 2021-03-18 08:00 | ECHOF ---
Referral Reason:LV function MEASUREMENTS -------- HEIGHT: 167.6 cm WEIGHT: 79.4 kg BP: 172/80 RVIDd: 3.2 cm (< 3.3) IVSd: 0.7 cm (0.6 - 1.1) LVIDd: 4.7 cm (3.9 - 5.3) LVPWd: 0.9 cm (0.6 - 1.1) IVSs: 1.2 cm LVIDs: 3.1 cm LVPWs: 1.4 cm LA Diam: 3.6 cm (2.7 - 3.8) LAESV Index (A-L): 25.37 ml/m Ao Diam: 3.1 cm (2.0 - 3.7) AV Cusp: 1.9 cm (1.5 - 2.6) MV EXCURSION: 16.703 mm (> 18.000) MV EF SLOPE: 105 mm/s (70 - 150) EPSS: 0.6 cm MV E Ubaldo: 0.64 m/s MV DecT: 371 ms MV A Ubaldo: 0.92 m/s MV E/A Ratio: 0.69 RAP: 5.00 mmHg RVSP: 28.93 mmHg FINDINGS -------- Sinus rhythm. This was a technically adequate study. The left ventricular size is normal. Left ventricular wall thickness is normal. Overall left vent ricular systolic function is normal with, an EF between 55 - 60 %. The right ventricle is normal in size. Normal LA size by volume 22+/-6 ml/m2. The right atrium is normal in size. Interatrial and interventricular septum intact. The aortic valve is trileaflet, and appears structurally normal. No aortic stenosis or regurgitation. Mild mitral annular calcification present. Mild tricuspid regurgitation present. Right ventricular systolic pressure is normal at < 35 mmHg. Trace/mild (physiologic) pulmonic regurgitation. The aortic root size is normal. IVC Not well visulized. Echo free space indicative of a pericardial fat pad. There is a trivial pericardial effusion presen t by [place] CONCLUSIONS -------- 1. The left ventricular size is normal. 2. Left ventricular wall thickness is normal. 3. Overall left ventricular systolic function is normal with, an EF between 55 - 60 %. 4. The aortic valve is trileaflet, and appears structurally normal. No aortic stenosis or regurgitati on. 5. Mild mitral annular calcification present. 6. Mild tricuspid regurgitation present. 7. Trace/mild (physiologic) pulmonic regurgitation. 8. Echo free space indicative of a pericardial fat pad. 9. There is a trivial pericardial effusion present by [place] [employer] TECHNICAL ARCHITECT: Mary Aguirre RDCS
--- NOTE | 2021-03-18 08:58 | P.DS ---
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 History of gastric bypass Fibromyalgia Hospital course:Shyann Wynn is a 65 yo F with hx cervical fusion, TIA, alcohol abuse who presented to the ED with worsening weakness, unable to get up off the floor. She states that over the past few months and worsening more recently she has been experiencing leg weakness. This is most pronounced when she tries to stand. She denies any leg pain or numbness. Pt does drink 1 bottle of wine daily. She had an outpatient appt with Neurology scheduled next week for this issue but she was not able to get up off the floor of her house so called EMS. On presentation vitals stable, labs with high MCV, TSH 22, calcium 8.1. 03/17/2021 mild orthostatic hypotension, symptomatic. Maintained on CIWA protoc ol with current score 0. Evaluated by neurology with recommendations noted and appreciated. MRI pending. Lumbar spine MRI reported spondylitic changes mainly at L2-3 and L3-4 with no significant spinal stenosis, minimal posterior disc bulging, no fracture. Most recent seawall score 0. Evaluated by cardiology yesterday with Midodrin initiated. Significant clinical improvement. Patient will be discharged to [facility] subacute rehab stay in the stable condition with guarded prognosis pending orthostatic vital signs as morning, final DC recommendations and clearance from cardiology. Patient has been cleared by neurology. Outpatient EMG with [facility] recommended. Alcohol abstinence/cessation reinforced. The impression and plan of care has been dictated as directed. : I performed a history and examination of this patient, discussed the same with the dictator. I agree with the dictator's note ,documented as a scribe. Any additional findings or plans will be noted. Patient Condition at Discharge: Stable Plan - Discharge Summary New Discharge Prescriptions: New Midodrine [ProAmatine] 5 mg PO AC-TID tab Levothyroxine Sodium [Synthroid] 37.5 mcg PO DAILY@0630 tab Cyanocobalamin [Vitamin B-12] 1,000 mcg PO DAILY tab Folic Acid 1 mg PO DAILY tab Thiamine [Vitamin B-1] 100 mg PO DAILY tab Continue Potassium Chloride ER [K-Dur 10] 10 meq PO DAILY PRN PRN Reason: WITH LASIX Furosemide [Lasix] 20 mg PO DAILY PRN PRN Reason: Edema Multivitamin [Multivitamins Adult Gummies] 1 tab PO DAILY Discontinued Levothyroxine Sodium [Synthroid] 25 mcg PO DAILY Discharge Medication List Furosemide [Lasix] 20 mg PO DAILY PRN 03/15/21 [History] Multivitamin [Multivitamins Adult Gummies] 1 tab PO DAILY 03/15/21 [History] Potassium Chloride ER [K-Dur 10] 10 meq PO DAILY PRN 03/15/21 [History] Cyanocobalamin [Vitamin B-12] 1,000 mcg PO DAILY tab 03/18/21 [Rx] Folic Acid 1 mg PO DAILY tab 03/18/21 [Rx] Levothyroxine Sodium [Synthroid] 37.5 mcg PO DAILY@0630 tab 03/18/21 [Rx] Midodrine [ProAmatine] 5 mg PO AC-TID tab 03/18/21 [Rx] Thiamine [Vitamin B-1] 100 mg PO DAILY tab 03/18/21 [Rx] Follow up Appointment(s)/Referral(s): Brianne Snyder DO [Primary Care Provider] - 1 Week (after dc from sub acute rehab) Alec Martínez DO [STAFF PHYSICIAN] - 2 Weeks (Outpatient EMG with [facility] recommended. ) Activity/Diet/Wound Care/Special Instructions: ECF: CBC,BMP in 3 days
--- NOTE | 2021-03-18 12:49 | P.PN ---
Subjective This is a pleasant 65-year-old female past medical history significant for TIA, hypothyroidism, gastric bypass, fibromyalgia, hypertension as well as hypotension and lower extremity edema, daily alcohol use. She follows in the office with Dr. Sweet. We have been asked to see in consultation for orthostatic hypotension. Patient presents to the hospital with complaints of bilateral leg weakness. Patient states she's been having leg weakness "forever" she states that over the past 1 year and a half and she feels its progressing. She is also having the lower back pain that it's chronic that's radiating to the buttocks region right more than left. She stated that the yesterday in the morning she was a sitting on a chair and had a difficulty getting up from the chair for 3 hours. She slid to the floor because she states she could not stand, she crawled to her bed. 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 She states she occasionally has dizziness. She denies chest pain, palpitations, lightheadedness, shortness of breath. She has been having lower extremity edema, and has been working with Dr. Sweet and her primary with this. She denies any bladder or bowel incontinence. Denies any weakness of upper extremities or visual disturbance or difficulty swallowing. She denies history of [place], Diabetes, or coronary artery disease. She denies family history of cardiac disease. She is a non-smoker. She drinks daily minimum is 1 bottle of wine per day. Denies illicit drug use. She states she has been previously on Lasix PO 20mg PRN however has not taken this in over a week due to hypotension DIAGNOSTICS EKG reveals sinus rhythm, heart rate 90, nonspecific STT wave abnormalities. Chest xray no acute cardiopulmonary process. CT brain was negative for any acute intracranial abnormality. Cardiac catheterization in 2017 revealed nonobstructive CAD 03/18/2021 Patient seen and examined at bedside, no acute distress. She denies chest pain, shortness of breath, lightheadedness, dizziness. She continues to be orthostatic supine blood pressure 93/69, sitting blood pressure 80/66, standing blood pressure 77/50. She is afebrile, maintaining oxygen saturations on room air. Patient currently maintained on IV fluids NaCl at 75 mL an hour, midodrine 5 mg 3 times a day PHYSICAL EXAMINATION CONSTITUTIONAL: No apparent distress. HEENT: Neck Supple. CHEST EXAMINATION: Lungs are clear to auscultation. HEART EXAMINATION: Regular rate and rhythm. S1, S2 heard. No murmurs, gallops or rub. ABDOMEN: Soft, nontender. Positive bowel sounds. EXTREMITIES: 2+ peripheral pulses, 2+ bilateral lower extremity edema and no calf tenderness. NEUROLOGIC EXAMINATION: Patient is awake, alert and oriented x3. ASSESSMENT Orthostatic Hypotension Bilateral leg weakness Dizziness Alcohol abuse PLAN From cardiology perspective, patient is stable to be discharged home. Recommend continuing midodrine 5 mg 3 times a day. Patient should follow-up with Dr. Santos in 2 weeks. Nurse Practitioner note has been reviewed, I agree with a documented findings and plan of care. Patient was seen and examined. Objective - Vital Signs Vital signs: Vital Signs Temp 98.8 F 03/18/21 12:07 Pulse 83 03/18/21 12:07 Resp 18 03/18/21 12:07 BP 116/80 03/18/21 12:07 Pulse Ox 97 03/18/21 12:07 Intake & Output 03/17/21 03/18/21 03/18/21 18:59 06:59 18:59 Intake Total 1540 Balance 1540 Intake: Intake, IV Titration 900 Amount Sodium Chloride 0.9% 1, 900 000 ml @ 75 mls/hr IV . [id number] [facility] Rx#:[id number] Oral 640 Other: Voiding Method Toilet Toilet Toilet # Voids 3 3 - Labs CBC & Chem 7: 03/15/21 10:56 03/15/21 10:56
--- NOTE | 2021-03-18 18:51 | P.PN ---
Subjective Progress Note Date: 03/18/21 Upon seeing the patient at bedside she stated that she's not feeling well. Per the patient's nurse her blood pressure has been low and systolic is as low as 77/50 standing. Patient stated that she's feeling nauseous. She had orthostatic vitals early in the morning around 9:00 in the morning: Supine is 93/69 sitting is 88/66 and standing is 77/50. MRI lumbar spine is reported as spondylitic changes mainly at the L2-L3 and L3- L4. No significant spinal stenosis. Minimal posterior disc all Leana without significant encroachment on the neural elements. No fracture. Objective - Vital Signs Vital signs: Vital Signs Temp 98.8 F 03/18/21 12:07 Pulse 93 03/18/21 14:45 Resp 18 03/18/21 12:07 BP 118/80 03/18/21 14:45 Pulse Ox 97 03/18/21 12:07 Intake & Output 03/17/21 03/18/21 03/18/21 18:59 06:59 18:59 Intake Total 1540 Balance 1540 Intake: Intake, IV Titration 900 Amount Sodium Chloride 0.9% 1, 900 000 ml @ 75 mls/hr IV . [id number] [facility] Rx#:[id number] Oral 640 Other: Voiding Method Toilet Toilet Toilet # Voids 3 3 1 - Exam GENERAL: The patient is sitting at side of bed and feeling nauseous. PSYCH: Flat affect. NEUROLOGICAL: Higher mental function: The patient is awake, alert, oriented to self, place and time. Patient is following commands. No aphasia and no neglect. Cranial nerves: The pupils are round, equal and reactive to light and accommodation. Visual sandra are full to confrontation throughout. Extraocular movement is intact no nystagmus is noted. Facial sensation is normal to touch throughout. The facial strength is normal throughout. Hearing is mildly to moderate decreased bilaterally to hand rub. Tongue is midline and moved [id number] without any difficulty. No dysarthria is noted. Shoulder shrug is normal bilaterally. Motor: Gait: Deferred. Strength deferred since patient nauseous but moving all extremities above gravity. Normal tone and bulk. No sponatenous movement. Sensation: Sensation is normal to touch throughout. Reflexes (right/left): Left patellar is 1+, ankles are 1+ bilaterally. Otherwise 2+ throughout. Plantars are downgoing bilaterally. LABS/IMAGING: Vitamin B12 level is 275 (normal is 200-944) and this is considered low normal. Serum Folate level is 4.6 which is the considered deficient normal is more than 5.38. While rbc folate is 499 (normal 280-791) Ionized calcium is 4.5 (borderline normal). Hemoglobin A1c is 3.9 which is considered low CK level 28 which is considered within normal limits Parathyroid hormone level is 89.[address] of the head is reported as cerebral atrophy. No acute intracranial chante lity. - Labs CBC & Chem 7: 03/15/21 10:56 03/15/21 10:56 Assessment and Plan Assessment: Bilateral proximal lower extremity weakness for the past 1 1/2 years and progressively worsening. Seems due to her hypotension and possibly component of nutrition deficiency (low vitamin B12 and folate deficiency) Suspected orthostatic hypotension that is having hypotension with systolic as low in 70's Vitamin B12 level is 275 (normal is 200-944) and this is considered low normal. Folate level is 4.6 which is the considered deficient normal is more than 5.38. History of TIA Hypothyroidism Chronic alcohol use (drinks 1 bottle wine daily). Fibromyalgia History of angina History of gastric bypass Osteoarthritis Plan: Continue vitamin B12 1000 g by mouth daily. Continue folic acid 1 mg daily Physical therapy and occupation therapy are consulted. Recommend repeating orthostatic vitals Cardiology started the patient on midodrine and was given a dose of Florinef 0.1mg once by primary team. [id number] neuro checks. Patient is on thiamine 100 mg daily. Patient is on CIWA protocol and will defer management to the primary team. The patient was counseled on alcohol cessation. We'll defer the rest of the medical management to primary team. Upon discharge the patient needs to follow-up with her neurologist (Dr. Martínez), which she has an appointment in a week. Recommend EMG with [facility] as outpatient. The plan is discussed with the patient and her nurse. Ravindre White M.D. Neuro-hospitalist Time with Patient: Less than 30
[2021-03-18 20:04] VITALS: RESP 16
[2021-03-18] MEDS ORDERED: FLUDROCORTISONE 0.1 MG TAB PO ONE (21:00)
[2021-03-19 05:01] VITALS: BP 115/77; PULSE 81; TEMP 98.6
[2021-03-19] MEDS: LEVOTHYROXINE 75 MCG TAB PO SCH (06:11)
[2021-03-19] MEDS: THIAMINE 100 MG TAB PO SCH (08:04)
[2021-03-19] MEDS: MIDODRINE 5 MG TAB PO SCH (08:04)
[2021-03-19] MEDS: FOLIC ACID 1 MG TAB PO SCH (08:04)
[2021-03-19] MEDS: CYANOCOBALAMIN 500 MCG TAB PO SCH (08:04)
[2021-03-19] MEDS: SODIUM CHLORIDE 0.9% 1,000 ML IV SCH (08:05)
== END 2021-03-19 13:17 | DRG 74 ==
LOC: EC 10:31 → 5NMEDONC 15:00 → OBSVTOIN 03-17 11:34
PROVIDERS: ADMIT Family Medicine; ATTEND Family Medicine
DX: G62.1 Alcoholic polyneuropathy (principal); F10.10 Alcohol abuse, uncomplicated; E03.9 Hypothyroidism, unspecified; I95.1 Orthostatic hypotension; I10 Essential (primary) hypertension; I25.10 Atherosclerotic heart disease of native coronary artery without angina pectoris; E55.9 Vitamin D deficiency, unspecified; M19.90 Unspecified osteoarthritis, unspecified site; M79.7 Fibromyalgia; K21.9 Gastro-esophageal reflux disease without esophagitis; Z98.1 Arthrodesis status; Z86.73 Personal history of transient ischemic attack (TIA), and cerebral infarction without residual deficits; Z98.84 Bariatric surgery status; Z87.891 Personal history of nicotine dependence; Z79.899 Other long term (current) drug therapy; Z90.710 Acquired absence of both cervix and uterus; Z79.890 Hormone replacement therapy; Z83.3 Family history of diabetes mellitus; Z82.49 Family history of ischemic heart disease and other diseases of the circulatory system
CPT/HCPCS: 36415; 70450; 71045; 72148; 80048; 81001; 82330; 82550; 82607; 82746; 82747; 83036; 83970; 84439; 84443; 84481; 84484; 85025; 87636; 93005; 93306; 96365; 99285

== ENCOUNTER 2021-06-18 23:41 | Inpatient (IN) | payer MEDICARE ==
[2021-06-19] MEDS ORDERED: SODIUM CHLORIDE 0.9% 1,000 ML IV STA ×3 (01:26→04:46)
[2021-06-19 02:06] LABS: Basophils % (A) 0 %; Eosinophils # (A) 0.2 k/uL (0-0.7); Eosinophils % (A) 1 %; HCT 39.4 % (34.0-46.0); HGB 13.6 gm/dL (11.4-16.0); Lymphocytes # (A) 0.6 k/uL (1.0-4.8); Lymphocytes % (A) 4 %; MCH 32.2 pg (25.0-35.0); MCHC 34.4 g/dL (31.0-37.0); MCV 93.5 fL (80.0-100.0); Mean Platelet Volume 8.9; Monocytes # (A) 0.6 k/uL (0-1.0); Monocytes % (A) 4 %; Neutrophils # (A) 14.6 k/uL (1.3-7.7); Neutrophils % (A) 91 %; Platelet Count 215 k/uL (150-450); RBC 4.21 m/uL (3.80-5.40); WBC 16.1 k/uL (3.8-10.6)
--- NOTE | 2021-06-19 02:08 | ED ---
Weakness HPI - General Chief complaint: Weakness Stated complaint: Weakness Time Seen by Provider: 06/19/21 01:20 Source: patient, family, RN notes reviewed, old records reviewed, Caregiver Mode of arrival: wheelchair Limitations: altered mental status - History of Present Illness Initial comments: This is a 65-year-old female to the emergency department today. Patient presents with her family members she states that the patient has not been really eating drinking or taking care of herself for quite some time now. Increasing weakness decreased activity level. She has history of heart disease and CVA. Patient has no recent travel history or sick contacts. Patient's been weak and is severe atrophy and weakness is give the point where he can't get up over take care of herself. MD Complaint: generalized weakness, lack of energy, difficulty walking Location: generalized Severity: moderate Severity scale (1-10): 5 Quality: sharp Consistency: constant Improves with: movement Worsens with: none Context: recent illness, history of similar Associated Symptoms: confusion, fever/chills, loss of appetite, nausea/vomiting - Related Data Home Medications Medication Instructions Recorded Confirmed Multivitamin [Multivitamins Adult 1 tab PO DAILY 03/15/21 06/19/21 Gummies] Cephalexin [Keflex] 500 mg PO DIRECTED 06/19/21 06/19/21 Furosemide [Lasix] 40 mg PO DAILY PRN 06/19/21 06/19/21 Levothyroxine Sodium [Synthroid] 100 mcg PO DAILY 06/19/21 06/19/21 Mupirocin 2% Oint [Bactroban 2% 1 applic TOPICAL BID 06/19/21 06/19/21 Oint] Nitrofurantoin Monohyd/M-Cryst 100 mg PO BID 06/19/21 06/19/21 [Macrobid] Potassium Chloride ER [K-Dur 20] 20 meq PO DAILY 06/19/21 06/19/21 Vitamin B Complex 1 cap PO DAILY 06/19/21 06/19/21 rOPINIRole HCL [Requip] 0.5 mg PO HS PRN 06/19/21 06/19/21 Previous Rx's Medication Instructions Recorded Midodrine [ProAmatine] 5 mg PO AC-TID tab 03/18/21 Allergies Allergy/AdvReac Type Severity Reaction Status Date / Time furosemide [From Lasix] AdvReac CAUSES Verified 06/19/21 08:50 BLOOD PRESSURE TO DROP QUICKLY MRI CONTRAST AdvReac FLUSHING Uncoded 06/19/21 08:50 Review of Systems ROS Statement: Those systems with pertinent positive or pertinent negative responses have been documented in the HPI. ROS Other: All systems not noted in ROS Statement are negative. Past Medical History Past Medical History: Chest Pain / Angina, CVA/TIA, Fibromyalgia, GERD/Reflux, Osteoarthritis (OA) Additional Past Medical History / Comment(s): "DUMPING SYNDROME" URINARY INCONT INENCE, TIA X3, restless leg History of Any Multi-Drug Resistant Organisms: None Reported Past Surgical History: Bariatric Surgery, Cholecystectomy, Hysterectomy, Orthopedic Surgery Additional Past Surgical History / Comment(s): HX GASTRIC BYPASS, PAIN CLINIC PROCEDURE, c3-7 fusions Past Anesthesia/Blood Transfusion Reactions: No Reported Reaction Additional Past Anesthesia/Blood Transfusion Reaction / Comment(s): REQUIRE ABOVE AVERAGE LIDOCAINE DOSE. Past Psychological History: No Psychological Hx Reported Smoking Status: Former smoker Past Alcohol Use History: Occasional Past Drug Use History: None Reported - Past Family History Father Family Medical History: Diabetes Mellitus, Myocardial Infarction ([place]) Mother Family Medical History: Cancer, Myocardial Infarction ([place]) General Exam - General Exam Comments Initial Comments: NIH of 0 Limitations: no limitations General appearance: alert, appears intoxicated Head exam: Present: atraumatic, normocephalic, normal inspection Eye exam: Present: normal appearance, PERRL, EOMI. Absent: scleral icterus, conjunctival injection, periorbital swelling ENT exam: Present: normal exam, mucous membranes moist Neck exam: Present: normal inspection. Absent: tenderness, meningismus, lymphadenopathy Respiratory exam: Present: normal lung sounds bilaterally. Absent: respiratory distress, wheezes, rales, rhonchi, stridor Cardiovascular Exam: Present: regular rate, normal rhythm, normal heart sounds. Absent: systolic murmur, diastolic murmur, rubs, gallop, clicks GI/Abdominal exam: Present: soft, normal bowel sounds. Absent: distended, tenderness, guarding, rebound, rigid Extremities exam: Present: normal inspection, full ROM, normal capillary refill. Absent: tenderness, pedal edema, joint swelling, calf tenderness Back exam: Present: normal inspection Neurological exam: Present: alert, oriented X3, CN II-XII intact Psychiatric exam: Present: normal affect, normal mood Skin exam: Present: warm, dry, intact, normal color. Absent: rash Course Vital Signs 06/18/21 06/19/21 06/19/21 23:47 03:30 05:03 Temperature 98 F Pulse Rate 82 93 84 Respiratory 22 18 18 Rate Blood Pressure 102/68 99/67 96/67 O2 Sat by Pulse 98 95 96 Oximetry 06/19/21 06/19/21 06/19/21 09:59 10:03 17:02 Temperature Pulse Rate 82 73 Respiratory 18 16 Rate Blood Pressure 84/60 91/66 90/70 O2 Sat by Pulse 96 99 Oximetry 06/19/21 06/19/21 06/20/21 20:48 23:00 00:00 Temperature Pulse Rate 78 71 71 Respiratory 18 16 16 Rate Blood Pressure 95/73 88/66 97/67 O2 Sat by Pulse 98 98 98 Oximetry - Reevaluation(s) Reevaluation #1: Medical record is reviewed Patient symptoms are unchanged Patient informed of results and questions answered and concern patient is unable to take care of herself Patient is in no acute distress EKG Findings - EKG Comments: EKG Findings:: EKG shows sinus rhythm 89 AL 120 QRS 70 QTC 484 Medical Decision Making - Medical Decision Making 65 female to the emergency department for evaluation of weakness. Patient has severe malnutrition and will be admitted for electrolyte replacement, hydration and PTOT - Lab Data Result diagrams: 06/19/21 19:42 06/19/21 19:42 Lab Results 06/19/21 06/19/21 06/19/21 Range/Units 01:51 01:51 01:51 WBC 16.1 H (3.8-10.6) k/uL RBC 4.21 (3.80-5.40) m/uL Hgb 13.6 (11.4-16.0) gm/dL Hct 39.4 (34.0-46.0) % MCV 93.5 (80.0-100.0) fL MCH 32.2 (25.0-35.0) pg MCHC 34.4 (31.0-37.0) g/dL RDW 15.0 (11.5-15.5) % Plt Count 215 (150-450) k/uL MPV 8.9 Neutrophils % 91 % Lymphocytes % 4 % Monocytes % 4 % Eosinophils % 1 % Basophils % 0 % Neutrophils # 14.6 H (1.3-7.7) k/uL Lymphocytes # 0.6 L (1.0-4.8) k/uL Monocytes # 0.6 (0-1.0) k/uL Eosinophils # 0.2 (0-0.7) k/uL Basophils # 0.0 (0-0.2) k/uL PT 16.3 H (9.0-12.0) sec INR 1.6 H (<1.2) APTT 29.5 (22.0-30.0) sec Sodium 121 L (137-145) mmol/L Potassium 2.5 L* (3.5-5.1) mmol/L Chloride 80 L (98-107) mmol/L Carbon Dioxide 30 (22-30) mmol/L Anion Gap 11 mmol/L BUN 16 (7-17) mg/dL Creatinine 1.14 H (0.52-1.04) mg/dL Est GFR (CKD-EPI)AfAm 58 (>60 ml/min/1.73 sqM) Est GFR (CKD-EPI)NonAf 50 (>60 ml/min/1.73 sqM) Glucose 101 H (74-99) mg/dL Calcium 7.3 L (8.4-10.2) mg/dL Phosphorus 3.6 (2.5-4.5) mg/dL Magnesium 1.2 L (1.6-2.3) mg/dL Total Bilirubin 3.4 H (0.2-1.3) mg/dL AST 71 H (14-36) U/L ALT 25 (4-34) U/L Alkaline Phosphatase 108 (38-126) U/L Troponin I (0.000-0.034) ng/mL NT-Pro-B Natriuret Pep pg/mL Total Protein 5.6 L (6.3-8.2) g/dL Albumin 2.7 L (3.5-5.0) g/dL TSH 5.550 H (0.465-4.680) mIU/L Coronavirus (PCR) (Not Detectd) 06/19/21 06/19/21 06/19/21 Range/Units 01:51 01:51 05:10 WBC (3.8-10.6) k/uL RBC (3.80-5.40) m/uL Hgb (11.4-16.0) gm/dL Hct (34.0-46.0) % MCV (80.0-100.0) fL MCH (25.0-35.0) pg MCHC (31.0-37.0) g/dL RDW (11.5-15.5) % Plt Count (150-450) k/uL MPV Neutrophils % % Lymphocytes % % Monocytes % % Eosinophils % % Basophils % % Neutrophils # (1.3-7.7) k/uL Lymphocytes # (1.0-4.8) k/uL Monocytes # (0-1.0) k/uL Eosinophils # (0-0.7) k/uL Basophils # (0-0.2) k/uL PT (9.0-12.0) sec INR (<1.2) APTT (22.0-30.0) sec Sodium (137-145) mmol/L Potassium (3.5-5.1) mmol/L Chloride (98-107) mmol/L Carbon Dioxide (22-30) mmol/L Anion Gap mmol/L BUN (7-17) mg/dL Creatinine (0.52-1.04) mg/dL Est GFR (CKD-EPI)AfAm (>60 ml/min/1.73 sqM) Est GFR (CKD-EPI)NonAf (>60 ml/min/1.73 sqM) Glucose (74-99) mg/dL Calcium (8.4-10.2) mg/dL Phosphorus (2.5-4.5) mg/dL Magnesium (1.6-2.3) mg/dL Total Bilirubin (0.2-1.3) mg/dL AST (14-36) U/L ALT (4-34) U/L Alkaline Phosphatase (38-126) U/L Troponin I 0.025 (0.000-0.034) ng/mL NT-Pro-B Natriuret Pep 2440 pg/mL Total Protein (6.3-8.2) g/dL Albumin (3.5-5.0) g/dL TSH (0.465-4.680) mIU/L Coronavirus (PCR) Not Detected (Not Detectd) - Radiology Data Radiology results: report reviewed (X-ray shows increase in pleural fluid, mild), image reviewed Disposition Clinical Impression: Hyponatremia, Dehydration, Hypokalemia, Weakness, Hypomagnesemia, Severe protein-calorie malnutrition Disposition: ADMITTED IP TO THIS HOSP Condition: Fair Is patient prescribed a controlled substance at d/c from ED?: No
--- NOTE | 2021-06-19 02:11 | XR ---
EXAMINATION TYPE: XR chest 1V portable DATE OF EXAM: 06/19/2021 COMPARISON: 03/15/2021 HISTORY: Difficulty breathing TECHNIQUE: Single view FINDINGS: Heart is normal. There is some blunting of the left costophrenic angle. There is no heart f ailure. There is poor inspiration. IMPRESSION: There is some pleural fluid and infiltrate and atelectasis at the left lung base which is increased compared to old exam. No heart failure seen.
[2021-06-19 02:14] LABS: INR 1.6 (<1.2); Partial Thromboplastin Time 29.5 sec (22.0-30.0); Prothrombin Time 16.3 sec (9.0-12.0)
[2021-06-19 02:27] LABS: Albumin 2.7 g/dL (3.5-5.0); Calcium 7.3 mg/dL (8.4-10.2); Magnesium 1.2 mg/dL (1.6-2.3); Phosphorus 3.6 mg/dL (2.5-4.5); Total Bilirubin 3.4 mg/dL (0.2-1.3); Total Protein 5.6 g/dL (6.3-8.2)
[2021-06-19 02:32] LABS: Potassium 2.5 mmol/L (3.5-5.1)
[2021-06-19] MEDS ORDERED: POTASSIUM BICARBONATE/CIT AC 20 MEQ TABLET.EFF PO ONE (03:23)
[2021-06-19] MEDS ORDERED: MAGNESIUM OXIDE 400 MG TAB PO STA ×2 (04:47)
[2021-06-19] MEDS: POTASSIUM CHLORIDE 20 MEQ in WATER FOR INJECTION 1 100ML.BAG IVPB SCH ×4 (04:58→12:05)
[2021-06-19] MEDS: MAGNESIUM SULFATE-D5W PMX 1 GM in DEXTROSE/WATER 1 100ML.BAG IVPB SCH ×2 (05:10→06:42)
[2021-06-19] MEDS ORDERED: NALOXONE 0.4 MG/ML 1 ML VIAL IV PRN (05:40)
[2021-06-19] MEDS ORDERED: ONDANSETRON 4 MG/2 ML VIAL IVP PRN (05:40)
[2021-06-19] MEDS ORDERED: MORPHINE SULFATE 4 MG/ML SYRINGE IVP STA (06:06)
[2021-06-19] MEDS: MORPHINE SULFATE 4 MG/ML SYRINGE IV PRN ×2 (06:11→10:00)
[2021-06-19] MEDS ORDERED: PANTOPRAZOLE 40 MG/10 ML VIAL IV SCH (09:00)
[2021-06-19] MEDS: MAGNESIUM OXIDE 400 MG TAB PO SCH ×2 (09:58→21:20)
[2021-06-19] MEDS ORDERED: LEVOTHYROXINE 100 MCG TAB PO SCH (10:15)
[2021-06-19 10:40] LABS: Basophils % (A) 0 %; Eosinophils % (A) 0 %; HCT 36.3 % (34.0-46.0); HGB 12.1 gm/dL (11.4-16.0); Lymphocytes # (A) 0.8 k/uL (1.0-4.8); Lymphocytes % (A) 7 %; MCH 32.1 pg (25.0-35.0); MCHC 33.4 g/dL (31.0-37.0); MCV 96.3 fL (80.0-100.0); Mean Platelet Volume 8.8; Monocytes # (A) 0.5 k/uL (0-1.0); Monocytes % (A) 5 %; Neutrophils # (A) 9.3 k/uL (1.3-7.7); Neutrophils % (A) 85 %; Platelet Count 183 k/uL (150-450); RBC 3.77 m/uL (3.80-5.40)
[2021-06-19 10:53] LABS: ALT 21 U/L (4-34); AST 49 U/L (14-36); African American GFR (CKD) 61 (>60 ml/min/1.73 sqM); Albumin 2.2 g/dL (3.5-5.0); Albumin/Globulin Ratio 0.9; Alkaline Phosphatase 100 U/L (38-126); Anion Gap 8 mmol/L; Blood Urea Nitrogen 16 mg/dL (7-17); Calcium 6.5 mg/dL (8.4-10.2); Carbon Dioxide 28 mmol/L (22-30); Chloride 87 mmol/L (98-107); Globulin 2.5 g/dL; Glucose 130 mg/dL (74-99); Magnesium 1.8 mg/dL (1.6-2.3); Non-African American GFR(CKD) 53 (>60 ml/min/1.73 sqM); Potassium 2.8 mmol/L (3.5-5.1); Sodium 123 mmol/L (137-145); Total Bilirubin 2.7 mg/dL (0.2-1.3); Total Protein 4.7 g/dL (6.3-8.2)
--- NOTE | 2021-06-19 10:53 | P.NPCON ---
History of Present Illness - Reason for Consult hyponatremia - History of Present Illness Reason for consultation: Hyponatremia History of present illness: Patient is a 65-year-old female seen in renal consultation for hyponatremia. Patient presented to the hospital with generalized weakness and poor intake. Her sodium level was 121 potassium level was 2.5 on admission. Magnesium level was 1.2. Patient states she hasn't been eating and drinking much the last few days. She does admit to drinking 5-6 bottles of water daily and also has 2 large glasses of iced tea daily. She is currently being treated for lower extremity infection as well as UTI. She was also taking Lasix outpatient which is currently held. She's currently receiving normal saline at 1 30 mL an hour. She also received 2 L of normal saline bolus on admission. Patient's blood pressure has been low in the systolic 80s to 90s. He has been voiding. No hematuria or dysuria. Denies use of nonsteroidals. No history of malignancy. No chest pain or shortness of breath. Vital signs are stable. General: The patient appeared well nourished and normally developed. HEENT: Head exam is unremarkable. LUNGS: Breath sounds decreased. HEART: Rate and Rhythm are regular. ABDOMEN: Soft, obese. EXTREMITITES: Lower extremities wrapped. 1+ edema. Past Medical History Past Medical History: Chest Pain / Angina, CVA/TIA, Fibromyalgia, GERD/Reflux, Osteoarthritis (OA) Additional Past Medical History / Comment(s): "DUMPING SYNDROME" URINARY INCONTINENCE, TIA X3, restless leg History of Any Multi-Drug Resistant Organisms: None Reported Past Surgical History: Bariatric Surgery, Cholecystectomy, Hysterectomy, Orthopedic Surgery Additional Past Surgical History / Comment(s): HX GASTRIC BYPASS, PAIN CLINIC PROCEDURE, c3-7 fusions Past Anesthesia/Blood Transfusion Reactions: No Reported Reaction Additional Past Anesthesia/Blood Transfusion Reaction / Comment(s): REQUIRE ABOVE AVERAGE LIDOCAINE DOSE. Past Psychological History: No Psychological Hx Reported Smoking Status: Former smoker Past Alcohol Use History: Occasional Past Drug Use History: None Reported - Past Family History Father Family Medical History: Diabetes Mellitus, Myocardial Infarction ([place]) Mother Family Medical History: Cancer, Myocardial Infarction ([place]) Medications and Allergies Home Medications Medication Instructions Recorded Confirmed Type Multivitamin [Multivitamins Adult 1 tab PO DAILY 03/15/21 06/19/21 History Gummies] Midodrine [ProAmatine] 5 mg PO AC-TID tab 03/18/21 06/19/21 Rx Cephalexin [Keflex] 500 mg PO DIRECTED 06/19/21 06/19/21 History Furosemide [Lasix] 40 mg PO DAILY PRN 06/19/21 06/19/21 History Levothyroxine Sodium [Synthroid] 100 mcg PO DAILY 06/19/21 06/19/21 History Mupirocin 2% Oint [Bactroban 2% 1 applic TOPICAL BID 06/19/21 06/19/21 History Oint] Nitrofurantoin Monohyd/M-Cryst 100 mg PO BID 06/19/21 06/19/21 History [Macrobid] Potassium Chloride ER [K-Dur 20] 20 meq PO DAILY 06/19/21 06/19/21 History Vitamin B Complex 1 cap PO DAILY 06/19/21 06/19/21 History rOPINIRole HCL [Requip] 0.5 mg PO HS PRN 06/19/21 06/19/21 History Allergies Allergy/AdvReac Type Severity Reaction Status Date / Time furosemide [From Lasix] AdvReac CAUSES Verified 06/19/21 08:50 BLOOD PRESSURE TO DROP QUICKLY MRI CONTRAST AdvReac FLUSHING Uncoded 06/19/21 08:50 Physical Exam Vitals: Vital Signs Temp Pulse Resp BP Pulse Ox 06/19/21 10:03 91/66 06/19/21 09:59 82 18 84/60 96 06/19/21 05:03 84 18 96/67 96 06/19/21 03:30 93 18 99/67 95 06/18/21 23:47 98 F 82 22 102/68 98 Intake and Output 06/18/21 06/19/21 06/19/21 22:59 06:59 14:59 Other: Weight 65.317 kg Results - Lab Results Most recent lab results Calcium 7.3 mg/dL (8.4-10.2) L 06/19/21 01:51 Phosphorus 3.6 mg/dL (2.5-4.5) 06/19/21 01:51 Magnesium 1.2 mg/dL (1.6-2.3) L 06/19/21 01:51 06/19/21 10:14 06/19/21 01:51 Assessment and Plan Plan: Assessment: 1. Hypovolemic hyponatremia from poor solute intake and excess fluid intake. Sodium level 121 on admission. TSH mildly elevated at 5.5. 2. Hypokalemia secondary to diuresis and hypomagnesemia. 3. Hypomagnesemia from poor intake and diuresis. 4. Generalized weakness. 5. Lower extremity infection on antibiotics. 6. Acute kidney injury mostly prerenal secondary to hypovolemia. Creatinine 1.14 on admission. Plan: Decreased rate of normal saline to 75 mL an hour. Continue to hold diuretics. Potassium and magnesium being replaced. Check CMP now. 1200 mL fluid restriction. Encouraged oral intake. Check serum and urine osmolality and urine sodium level. Check a.m. cortisol level. Check bladder scan to rule out urinary retention. Thank you for the consultation. I will continue to follow the patient with you during her hospital stay.
[2021-06-19 11:08] LABS: T4, Free (Free Thyroxine) 2.33 ng/dL (0.78-2.19)
--- NOTE | 2021-06-19 11:39 | P.HPIM ---
History of Present Illness This is a pleasant 65 years old female with past medical history of CVA/TIA, Fibromyalgia, GERD, Osteoarthritis (OA), "DUMPING SYNDROME" URINARY INCONTINENCE, TIA X3, restless leg. Alcohol abuse. Bilateral lower extremity weakness for the past 1-1/2 years progressively worsening with unknown etiology has been evaluated by neurologist for She is patient of Dr. Claudio Decker. Patient presents today stating that she has more weakness in her legs. Also she reports weakness in the upper extremity that dropped some stuff from her right hand, actually she is complaining of from weakness all over. Recently she could not get up from her chair vision says that her weakness in both sides are symmetrical. And her daughter came and she did not like her current and ask her to come to emergency room Last Monday about 3-4 days ago she fell and called EMS to help her get up. But she did not come to emergency room Patient states that Dr. Fleming has been treating her weakness for the last 2 months but weakness is getting worse. Also she is complaining of from some urinary symptoms stating that she's been diagnosed with UTI on antibiotics but she could not remember the name of the antibiotics. Patient denies any headache. No chest pain or dyspnea. No nausea vomiting or diarrhea. She denies smoking, alcohol or illicit drugs. Also she's been treated for with in her left lower leg with dressing is in place. The area looks inflamed with some purulent discharge Of note patient has been evaluated by neurologist [address] White for her bilateral proximal lower extremity weakness for 1.5 years and its progressive Vital signs stable, blood pressure is low normal Labs showing leukocytosis of 16.1 K. INR is 1.6. Sodium 121, potassium 2.5, creatinine 1.14. Glucose 101, magnesium 1.2, AST slightly elevated at 71 increased total bilirubin of 3.4, proBNP is 2440. Troponin negative at 0.025. TSH is elevated at 5.55. Coronavirus not detected EKG showing normal sinus rhythm at [address] T changes, QTC is 504. Another EKG showing normal sinus rhythm at [address]-T changes and QTC is 484. Chest x-ray: There is some pleural fluid and infiltrate and atelectasis of the left lung base which is increased compared to old exam. No heart failure seen On admission patient received several doses of magnesium and potassium, IV Protonix, and 2-3 L of normal saline by emergency room team Of note her parathyroid hormone was elevated 89.83 months ago on 03/16/2021 Review of Systems CONSTITUTIONAL: No fever, no malaise, no fatigue. HEENT: No recent visual problems or hearing problems. Denied any sore throat. CARDIOVASCULAR: No orthopnea, PND, no palpitations, no syncope. PULMONARY: No chest wall tenderness, no hemoptysis. GASTROINTESTINAL: No diarrhea, no nausea, no vomiting, no abdominal pain. Nor moactive bowel sounds. NEUROLOGICAL: No headaches, no numbness. HEMATOLOGICAL: Denies any bleeding or petechiae. GENITOURINARY: Denies any burning micturition, frequency, or urgency. MUSCULOSKELETAL/RHEUMATOLOGICAL: Denies any joint pain, swelling, or any muscle pain. ENDOCRINE: Denies any polyuria or polydipsia. Past Medical History Past Medical History: Chest Pain / Angina, CVA/TIA, Fibromyalgia, GERD/Reflux, Osteoarthritis (OA) Additional Past Medical History / Comment(s): "DUMPING SYNDROME" URINARY INCONTINENCE, TIA X3, restless leg History of Any Multi-Drug Resistant Organisms: None Reported Past Surgical History: Bariatric Surgery, Cholecystectomy, Hysterectomy, Orthopedic Surgery Additional Past Surgical History / Comment(s): HX GASTRIC BYPASS, PAIN CLINIC PROCEDURE, c3-7 fusions Past Anesthesia/Blood Transfusion Reactions: No Reported Reaction Additional Past Anesthesia/Blood Transfusion Reaction / Comment(s): REQUIRE ABOVE AVERAGE LIDOCAINE DOSE. Past Psychological History: No Psychological Hx Reported Smoking Status: Former smoker Past Alcohol Use History: Occasional Past Drug Use History: None Reported - Past Family History Father Family Medical History: Diabetes Mellitus, Myocardial Infarction ([place]) Mother Family Medical History: Cancer, Myocardial Infarction ([place]) Medications and Allergies Home Medications Medication Instructions Recorded Confirmed Type Multivitamin [Multivitamins Adult 1 tab PO DAILY 03/15/21 06/19/21 History Gummies] Midodrine [ProAmatine] 5 mg PO AC-TID tab 03/18/21 06/19/21 Rx Cephalexin [Keflex] 500 mg PO DIRECTED 06/19/21 06/19/21 History Furosemide [Lasix] 40 mg PO DAILY PRN 06/19/21 06/19/21 History Levothyroxine Sodium [Synthroid] 100 mcg PO DAILY 06/19/21 06/19/21 History Mupirocin 2% Oint [Bactroban 2% 1 applic TOPICAL BID 06/19/21 06/19/21 History Oint] Nitrofurantoin Monohyd/M-Cryst 100 mg PO BID 06/19/21 06/19/21 History [Macrobid] Potassium Chloride ER [K-Dur 20] 20 meq PO DAILY 06/19/21 06/19/21 History Vitamin B Complex 1 cap PO DAILY 06/19/21 06/19/21 History rOPINIRole HCL [Requip] 0.5 mg PO HS PRN 06/19/21 06/19/21 History Allergies Allergy/AdvReac Type Severity Reaction Status Date / Time furosemide [From Lasix] AdvReac CAUSES Verified 06/19/21 08:50 BLOOD PRESSURE TO DROP QUICKLY MRI CONTRAST AdvReac FLUSHING Uncoded 06/19/21 08:50 Physical Exam Vitals: Vital Signs Temp Pulse Resp BP Pulse Ox 06/19/21 05:03 84 18 96/67 96 06/19/21 03:30 93 18 99/67 95 06/18/21 23:47 98 F 82 22 102/68 98 Intake and Output 06/18/21 06/19/21 06/19/21 22:59 06:59 14:59 Other: Weight 65.317 kg GENERAL: The patient is alert and oriented x3, not in any acute distress. Well developed, well nourished. HEENT: Pupils are round and equally reacting to light. EOMI. No scleral icterus. No conjunctival pallor. Normocephalic, atraumatic. No pharyngeal erythema. No thyromegaly. CARDIOVASCULAR: S1 and S2 present. No murmurs, rubs, or gallops. PULMONARY: Chest is clear to auscultation, no wheezing or crackles. ABDOMEN: Soft, nontender, nondistended, normoactive bowel sounds. No palpable organomegaly. MUSCULOSKELETAL: No joint swelling or deformity. -EXTREMITIES: No cyanosis, clubbing, . 2+ Bilateral pitting leg edema. Left lower leg wound, 1 inch was purulent discharge and surrounding cellulitis. -NEUROLOGICAL: Cranial nerves are grossly intact. Patient she has weakness all over, patient she cannot raise her legs off the bed only for a few millimeters. Minimal weakness in the upper extremities. No abnormal sensation. Meningeal signs are absent. SKIN: No rashes. No petechiae Results CBC & Chem 7: 06/19/21 10:14 06/19/21 10:14 Labs: Abnormal Lab Results - Last 24 Hours (Table) 06/19/21 06/19/21 06/19/21 Range/Units 01:51 01:51 01:51 WBC 16.1 H (3.8-10.6) k/uL Neutrophils # 14.6 H (1.3-7.7) k/uL Lymphocytes # 0.6 L (1.0-4.8) k/uL PT 16.3 H (9.0-12.0) sec INR 1.6 H (<1.2) Sodium 121 L (137-145) mmol/L Potassium 2.5 L* (3.5-5.1) mmol/L Chloride 80 L (98-107) mmol/L Creatinine 1.14 H (0.52-1.04) mg/dL Glucose 101 H (74-99) mg/dL Calcium 7.3 L (8.4-10.2) mg/dL Magnesium 1.2 L (1.6-2.3) mg/dL Total Bilirubin 3.4 H (0.2-1.3) mg/dL AST 71 H (14-36) U/L Total Protein 5.6 L (6.3-8.2) g/dL Albumin 2.7 L (3.5-5.0) g/dL TSH 5.550 H (0.465-4.680) mIU/L Assessment and Plan Assessment: Increased left lower lobe infiltrate and pleural effusion suspicious for pneumonia Hyponatremia, hypokalemia and hypomagnesemia. Most likely hypovolemic hyponatremia Hypotension, was on midodrine at home Increased bilirubin Iatrogenic hyperthyroidism, Elevated TSH and free T4 while she is on levothyroxine History of bilateral lower extremity weakness for 1.5-2 years, has been evaluated by neurologist in the past history of orthostatic hypotension and dizziness History of Vitamin B12 and folate deficiency History of high PTH History of GERD History of fibromyalgia History of CVA/TIA History of dumping syndrome Urinary incontinence Plan: This is a pleasant 65 years old female who presents with left lower lobe pneumonia and hyponatremia Check chest ultrasound Consulting neurology services Check wound culture and we will start the patient on Unasyn empirically Monitor sodium closely Lower the dose of levothyroxine 100 g down to 50 g Monitor sodium and other electrolytes, ordered stat labs. Consult nephrology service for the hyponatremia.IV fluids was already stopped by 80 team. No more IV fluids for now and will wait for the repeat sodium and nephrology consult Labs and medication were reviewed.. Continue same treatment. Continue with symptomatic treatment. Resume home medication. Monitor lytes and vitals. DVT and GI prophylaxis. Further recommendations depends on the clinical course of the patient DVT prophylaxis: Subcutaneous heparin GI Prophylaxis: Ppi PT/OT: Pending Prognosis is guarded
[2021-06-19] MEDS ORDERED: AMPICILLIN-SULBACTAM 3 GM in SODIUM CHLORIDE 0.9% 100 ML IVPB SCH (12:15)
--- NOTE | 2021-06-19 13:16 | US ---
EXAMINATION TYPE: US chest DATE OF EXAM: 06/19/2021 COMPARISON: Chest x ray CLINICAL HISTORY: left pl effusion and possible pna. TECHNIQUE: Targeted ultrasound of the posterior bilateral hemithoraces EXAM MEASUREMENTS: Right Pleural Effusion pocket size: no fluid seen Left Pleural Effusion pocket size: 3.5 cm A/P Left skin surface to fluid distance: 3.6 cm A/P Left side was not marked for possible thoracentesis outside the dept. as pleural effusion pocket is l ess than 5.0cm. Pulmonologists are able to review the images in the patient?s EMR. IMPRESSIONS: There is a small left pleural effusion
[2021-06-19] MEDS: POTASSIUM CHLORIDE ER 20 MEQ TAB.ER PO SCH (13:19)
[2021-06-19] MEDS: MIDODRINE 5 MG TAB PO SCH ×3 (13:19→20:43)
--- NOTE | 2021-06-19 17:19 | P.CNNES ---
History of Present Illness Consult date: 06/19/21 Reason for Consult: lower extremity weakness History of Present Illness: The patient is a 65-year-old female who is seen in neurologic consultation on June 19, 2021, via teleneurology. The patient is being seen because of bilateral lower extremity weakness. The patient reports that she has been having progressive weakness in her legs, the past 1-2 years. She reports that on this occasion, her legs were so weak she was unable to get out of the chair. She says she attempted for approximately 3 hours and was unable to get up. The patient reports numbness and tingling in her toes. She denies numbness and tingling in her hands and fingers. The patient denies back pain with radiation into her legs. The patient does report having a headache recently and this is unusual for her. She also reports recent difficulty swallowing and difficulty getting her words out-"recall". The patient denies seeing a neurologist as an outpatient. She does report having had an EMG with nerve conduction studies. She reports having "chronic back disorder", consisting of "collapsed discs". The patient denies stiffness in her muscles. She denies a sensation of jumping of her muscles. Previous neurology consultation is reviewed. Past Medical History Past Medical History: Chest Pain / Angina, CVA/TIA, Fibromyalgia, GERD/Reflux, Osteoarthritis (OA) Additional Past Medical History / Comment(s): "DUMPING SYNDROME" URINARY INCONTINENCE, TIA X3, restless leg History of Any Multi-Drug Resistant Organisms: None Reported Past Surgical History: Bariatric Surgery, Cholecystectomy, Hysterectomy, Orthopedic Surgery Additional Past Surgical History / Comment(s): HX GASTRIC BYPASS, PAIN CLINIC PROCEDURE, c3-7 fusions Past Anesthesia/Blood Transfusion Reactions: No Reported Reaction Additional Past Anesthesia/Blood Transfusion Reaction / Comment(s): REQUIRE ABOVE AVERAGE LIDOCAINE DOSE. Past Psychological History: No Psychological Hx Reported Smoking Status: Former smoker Past Alcohol Use History: Occasional Past Drug Use History: None Reported - Past Family History Father Family Medical History: Diabetes Mellitus, Myocardial Infarction (NH) Mother Family Medical History: Cancer, Myocardial Infarction (NH) Medications and Allergies Home Medications Medication Instructions Recorded Confirmed Type Multivitamin [Multivitamins Adult 1 tab PO DAILY 03/15/21 06/19/21 History Gummies] Midodrine [ProAmatine] 5 mg PO AC-TID tab 03/18/21 06/19/21 Rx Cephalexin [Keflex] 500 mg PO DIRECTED 06/19/21 06/19/21 History Furosemide [Lasix] 40 mg PO DAILY PRN 06/19/21 06/19/21 History Levothyroxine Sodium [Synthroid] 100 mcg PO DAILY 06/19/21 06/19/21 History Mupirocin 2% Oint [Bactroban 2% 1 applic TOPICAL BID 06/19/21 06/19/21 History Oint] Nitrofurantoin Monohyd/M-Cryst 100 mg PO BID 06/19/21 06/19/21 History [Macrobid] Potassium Chloride ER [K-Dur 20] 20 meq PO DAILY 06/19/21 06/19/21 History Vitamin B Complex 1 cap PO DAILY 06/19/21 06/19/21 History rOPINIRole HCL [Requip] 0.5 mg PO HS PRN 06/19/21 06/19/21 History Allergies Allergy/AdvReac Type Severity Reaction Status Date / Time furosemide [From Lasix] AdvReac CAUSES Verified 06/19/21 08:50 BLOOD PRESSURE TO DROP QUICKLY MRI CONTRAST AdvReac FLUSHING Uncoded 06/19/21 08:50 Physical Examination - Vital Signs Vital Signs: Vital Signs Temp Pulse Resp BP Pulse Ox 06/19/21 10:03 91/66 06/19/21 09:59 82 18 84/60 96 06/19/21 05:03 84 18 96/67 96 06/19/21 03:30 93 18 99/67 95 06/18/21 23:47 98 F 82 22 102/68 98 Intake and Output 06/19/21 06/19/21 06/19/21 06:59 14:59 22:59 Other: Weight 65.317 kg Gen.: The patient is reclining on a gurney in the emergency department. She is in no acute distress. HEENT: Head is atraumatic, normocephalic. Fundus not visualized. There is no scleral icterus. Mucous membranes are moist. Neck: Supple without carotid bruits Heart: Regular rate and rhythm Extremities: 3+ pitting edema of the bilateral lower extremities. There is also weeping of the lower extremities. There is a wound noted on the left de la cruz. Neurological examination Mental status: The patient is awake. She is somewhat sleepy. She is oriented to her name, date of , age, current year and location. Her speech is clear. Cranial nerves: Pupils are equal at 2 mm and reactive. Visual sandra are full to confrontation. Extraocular movements are intact. There is no nystagmus. Facial sensation is intact. There is no facial asymmetry. During is grossly intact. Uvula and palate are midline. Shoulder shrug is symmetric. Tongue protrudes midline. Motor: Bilateral upper extremity strength is 4/5. Right hip flexor 2-3/5. Left hip flexor 2/5. Bilateral plantar flexors 5/5. Sensation: Grossly intact to light touch throughout. There is no extinction with double simultaneous stimulation. Coordination: Finger to nose and rapid alternating movements are intact. Deep tendon reflexes: 2+/4+ in the bilateral upper extremities. Lower extremity reflexes are difficult to accurately assess secondary to edema, as well as inability of the patient to relax her legs. Results - Laboratory Findings CBC and BMP: 06/19/21 10:14 06/19/21 10:14 Abnormal Lab Findings: Abnormal Labs 06/19/21 06/19/21 06/19/21 01:51 01:51 01:51 WBC 16.1 H RBC Neutrophils # 14.6 H Lymphocytes # 0.6 L PT 16.3 H INR 1.6 H Sodium 121 L Potassium 2.5 L* Chloride 80 L Creatinine 1.14 H Glucose 101 H Osmolality Calcium 7.3 L Magnesium 1.2 L Total Bilirubin 3.4 H AST 71 H Total Protein 5.6 L Albumin 2.7 L TSH 5.550 H Free T4 06/19/21 06/19/21 10:14 10:14 WBC 11.0 H RBC 3.77 L Neutrophils # 9.3 H Lymphocytes # 0.8 L PT INR Sodium 123 L Potassium 2.8 L Chloride 87 L Creatinine 1.09 H Glucose 130 H Osmolality 262 L Calcium 6.5 L Magnesium Total Bilirubin 2.7 H AST 49 H Total Protein 4.7 L Albumin 2.2 L TSH 5.480 H Free T4 2.33 H Assessment and Plan Assessment: 1. Generalized weakness in a patient with multiple medical comorbidities. She is currently suffering from severe hyponatremia and hypokalemia. In addition, there is marked edema of the lower extremities 2. Wound infection 3. Reported pleural effusion per chest x-ray Plan: 1. Physical therapy consultation for strengthening 2. Your treatment of patient's metabolic abnormalities 3. MRI of lumbar spine was performed on previous visit, negative for stenosis, cord lesion and the etiology for lower extremity weakness 4. Per patient, reported EMG and nerve conduction studies. The patient should follow up with the physician who performed these tests for further recommendations regarding strengthening of her legs. Thank you for allowing me to participate in the care of this patient. I do not believe there is any further patient neurological testing needed at this time. Please call with questions. We will be happy to return to see the patient if needed. Time with Patient: Greater than 30 (spent 35 minutes with patient via telemedicine)
[2021-06-19] MEDS ORDERED: Magnesium Replacement Protocol 1 EACH MISC MISCELLANE PRN (19:26)
[2021-06-19] MEDS ORDERED: Potassium Replacement Protocol 1 EACH MISC MISCELLANE PRN (19:26)
[2021-06-19 20:40] LABS: Basophils % (A) 0 %; Eosinophils # (A) 0.1 k/uL (0-0.7); Eosinophils % (A) 1 %; HCT 36.4 % (34.0-46.0); HGB 12.3 gm/dL (11.4-16.0); Lymphocytes # (A) 0.8 k/uL (1.0-4.8); Lymphocytes % (A) 7 %; MCH 32.2 pg (25.0-35.0); MCHC 33.8 g/dL (31.0-37.0); MCV 95.1 fL (80.0-100.0); Monocytes # (A) 0.5 k/uL (0-1.0); Monocytes % (A) 4 %; Neutrophils # (A) 9.8 k/uL (1.3-7.7); Neutrophils % (A) 86 %; Platelet Count 201 k/uL (150-450); RBC 3.82 m/uL (3.80-5.40); RDW 15.8 % (11.5-15.5); WBC 11.4 k/uL (3.8-10.6)
[2021-06-19] MEDS: SODIUM CHLORIDE 0.9% 1,000 ML IV SCH (20:42)
[2021-06-19] MEDS: AMPICILLIN-SULBACTAM 3 GM in SODIUM CHLORIDE 0.9% 100 ML IVPB SCH (20:42)
[2021-06-19 20:43] LABS: ALT 25 U/L (4-34); AST 69 U/L (14-36); African American GFR (CKD) 62 (>60 ml/min/1.73 sqM); Albumin 2.4 g/dL (3.5-5.0); Albumin/Globulin Ratio 0.9; Alkaline Phosphatase 116 U/L (38-126); Anion Gap 7 mmol/L; Blood Urea Nitrogen 17 mg/dL (7-17); Calcium 6.8 mg/dL (8.4-10.2); Carbon Dioxide 29 mmol/L (22-30); Chloride 87 mmol/L (98-107); Globulin 2.6 g/dL; Glucose 118 mg/dL (74-99); Non-African American GFR(CKD) 54 (>60 ml/min/1.73 sqM); Potassium 3.5 mmol/L (3.5-5.1); Sodium 123 mmol/L (137-145); Total Bilirubin 2.4 mg/dL (0.2-1.3)
[2021-06-19 20:44] LABS: African American GFR (CKD) 64 (>60 ml/min/1.73 sqM); Anion Gap 7 mmol/L; Blood Urea Nitrogen 18 mg/dL (7-17); Calcium 6.8 mg/dL (8.4-10.2); Carbon Dioxide 29 mmol/L (22-30); Chloride 87 mmol/L (98-107); Glucose 116 mg/dL (74-99); Non-African American GFR(CKD) 55 (>60 ml/min/1.73 sqM); Potassium 3.4 mmol/L (3.5-5.1); Sodium 123 mmol/L (137-145)
[2021-06-19 21:00] LABS: Appearance,Urine Cloudy (Clear); Bacteria,Urine Rare /hpf; Bilirubin,Urine 1+ (Negative); Blood,Urine Negative (Negative); Color,Urine Dark Brown; Glucose,Urine (UA) Negative (Negative); Hyaline Casts,Urine 314 /lpf (0-2); Ketones,Urine Negative (Negative); Leukocyte Esterase,Urine Trace (Negative); Mucus,Urine Many /hpf; Nitrite,Urine Negative (Negative); PH, Urine 5.5 (5.0-8.0); Protein,Urine Trace (Negative); RBC,Urine 2 /hpf (0-5); Specific Gravity,Urine 1.016 (1.001-1.035); Squamous Epithelial Cell,Urine 15 /hpf (0-4); WBC,Urine 26 /hpf (0-5)
[2021-06-19] MEDS: NITROFURANTOIN MONOHYD/M-CRYST 100 MG CAP PO SCH (21:20)
[2021-06-19] MEDS ORDERED: POTASSIUM CHLORIDE ER 20 MEQ TAB.ER PO STA (21:24)
[2021-06-19] MEDS ORDERED: FUROSEMIDE 10 MG/ML 4 ML VIAL IV STA (23:00)
[2021-06-19] MEDS: HEPARIN SODIUM,PORCINE/PF 5,000 UNIT/0.5 ML SYRINGE SQ SCH (23:28)
[2021-06-20] MEDS ORDERED: AMPICILLIN-SULBACTAM 3 GM in SODIUM CHLORIDE 0.9% 100 ML IVPB SCH (04:00)
[2021-06-20] MEDS: MORPHINE SULFATE 4 MG/ML SYRINGE IV PRN (05:41)
[2021-06-20 09:16] LABS: ALT 26 U/L (4-34); AST 78 U/L (14-36); African American GFR (CKD) 82 (>60 ml/min/1.73 sqM); Albumin 2.2 g/dL (3.5-5.0); Albumin/Globulin Ratio 0.8; Alkaline Phosphatase 116 U/L (38-126); Anion Gap 7 mmol/L; Blood Urea Nitrogen 18 mg/dL (7-17); Carbon Dioxide 27 mmol/L (22-30); Chloride 90 mmol/L (98-107); Globulin 2.6 g/dL; Glucose 111 mg/dL (74-99); Magnesium 1.7 mg/dL (1.6-2.3); Non-African American GFR(CKD) 71 (>60 ml/min/1.73 sqM); Potassium 3.8 mmol/L (3.5-5.1); Sodium 124 mmol/L (137-145); Total Bilirubin 2.3 mg/dL (0.2-1.3); Total Protein 4.8 g/dL (6.3-8.2)
[2021-06-20] MEDS ORDERED: Phosphorus Replacement Protoco 1 EACH MISC MISCELLANE PRN (10:36)
[2021-06-20] MEDS ORDERED: FUROSEMIDE 10 MG/ML 4 ML VIAL IV STA ×2 (10:37→10:48)
--- NOTE | 2021-06-20 10:38 | P.PN ---
Subjective Patient is seen in follow-up for hyponatremia. Sodium level 124 this morning. Urine output 100 mL overnight. She is receiving IV fluids. Creatinine 0.86 today. No chest pain or shortness of breath. Blood pressure in the systolic 80s to 90s. Vital signs are stable. General: The patient appeared well nourished and normally developed. HEENT: Head exam is unremarkable. LUNGS: Breath sounds decreased. HEART: Rate and Rhythm are regular. ABDOMEN: Soft, no distention. EXTREMITITES: 1+ edema. No drainage. Objective - Vital Signs Vital signs: Vital Signs Temp 98 F 06/18/21 23:47 Pulse 76 06/20/21 05:37 Resp 16 06/20/21 05:37 BP 99/67 06/20/21 05:37 Pulse Ox 97 06/20/21 05:37 Intake & Output 06/19/21 06/20/21 06/20/21 18:59 06:59 18:59 Output Total 100 Balance -100 Output: Urine 100 - Labs CBC & Chem 7: 06/19/21 19:42 06/20/21 08:29 Labs: Abnormal Lab Results - Last 24 Hours (Table) 06/19/21 06/19/21 06/19/21 Range/Units 10:14 10:14 10:14 WBC 11.0 H (3.8-10.6) k/uL RBC 3.77 L (3.80-5.40) m/uL RDW (11.5-15.5) % Neutrophils # 9.3 H (1.3-7.7) k/uL Lymphocytes # 0.8 L (1.0-4.8) k/uL Sodium 123 L (137-145) mmol/L Potassium 2.8 L (3.5-5.1) mmol/L Chloride 87 L (98-107) mmol/L BUN (7-17) mg/dL Creatinine 1.09 H (0.52-1.04) mg/dL Glucose 130 H (74-99) mg/dL Osmolality 262 L (280-301) mosm/kg Calcium 6.5 L (8.4-10.2) mg/dL Phosphorus (2.5-4.5) mg/dL Total Bilirubin 2.7 H (0.2-1.3) mg/dL AST 49 H (14-36) U/L Total Protein 4.7 L (6.3-8.2) g/dL Albumin 2.2 L (3.5-5.0) g/dL Vitamin B12 1142.0 H (200.0-944.0) pg/mL Procalcitonin 1.13 H (0.02-0.09) ng/mL TSH 5.480 H (0.465-4.680) mIU/L Free T4 2.33 H (0.78-2.19) ng/dL PTH Intact (14.0-72.0) pg/mL Urine Appearance (Clear) Urine Protein (Negative) Urine Bilirubin (Negative) Ur Leukocyte Esterase (Negative) Urine WBC (0-5) /hpf Ur Squamous Epith Cells (0-4) /hpf Urine Bacteria (None) /hpf Hyaline Casts (0-2) /lpf Urine Mucus (None) /hpf 06/19/21 06/19/21 06/19/21 Range/Units 10:14 19:42 19:42 WBC 11.4 H (3.8-10.6) k/uL RBC (3.80-5.40) m/uL RDW 15.8 H (11.5-15.5) % Neutrophils # 9.8 H (1.3-7.7) k/uL Lymphocytes # 0.8 L (1.0-4.8) k/uL Sodium 123 L (137-145) mmol/L Potassium 3.4 L (3.5-5.1) mmol/L Chloride 87 L (98-107) mmol/L BUN 18 H (7-17) mg/dL Creatinine 1.05 H (0.52-1.04) mg/dL Glucose 116 H (74-99) mg/dL Osmolality (280-301) mosm/kg Calcium 6.8 L (8.4-10.2) mg/dL Phosphorus (2.5-4.5) mg/dL Total Bilirubin (0.2-1.3) mg/dL AST (14-36) U/L Total Protein (6.3-8.2) g/dL Albumin (3.5-5.0) g/dL Vitamin B12 (200.0-944.0) pg/mL Procalcitonin (0.02-0.09) ng/mL TSH (0.465-4.680) mIU/L Free T4 (0.78-2.19) ng/dL PTH Intact 145.0 H (14.0-72.0) pg/mL Urine Appearance (Clear) Urine Protein (Negative) Urine Bilirubin (Negative) Ur Leukocyte Esterase (Negative) Urine WBC (0-5) /hpf Ur Squamous Epith Cells (0-4) /hpf Urine Bacteria (None) /hpf Hyaline Casts (0-2) /lpf Urine Mucus (None) /hpf 06/19/21 06/19/21 06/20/21 Range/Units 19:42 20:30 08:29 WBC (3.8-10.6) k/uL RBC (3.80-5.40) m/uL RDW (11.5-15.5) % Neutrophils # (1.3-7.7) k/uL Lymphocytes # (1.0-4.8) k/uL Sodium 123 L 124 L (137-145) mmol/L Potassium (3.5-5.1) mmol/L Chloride 87 L 90 L (98-107) mmol/L BUN 18 H (7-17) mg/dL Creatinine 1.07 H (0.52-1.04) mg/dL Glucose 118 H 111 H (74-99) mg/dL Osmolality (280-301) mosm/kg Calcium 6.8 L 7.0 L (8.4-10.2) mg/dL Phosphorus 2.0 L (2.5-4.5) mg/dL Total Bilirubin 2.4 H 2.3 H (0.2-1.3) mg/dL AST 69 H 78 H (14-36) U/L Total Protein 5.0 L 4.8 L (6.3-8.2) g/dL Albumin 2.4 L 2.2 L (3.5-5.0) g/dL Vitamin B12 (200.0-944.0) pg/mL Procalcitonin (0.02-0.09) ng/mL TSH (0.465-4.680) mIU/L Free T4 (0.78-2.19) ng/dL PTH Intact (14.0-72.0) pg/mL Urine Appearance Cloudy H (Clear) Urine Protein Trace H (Negative) Urine Bilirubin 1+ H (Negative) Ur Leukocyte Esterase Trace H (Negative) Urine WBC 26 H (0-5) /hpf Ur Squamous Epith Cells 15 H (0-4) /hpf Urine Bacteria Rare H (None) /hpf Hyaline Casts 314 H (0-2) /lpf Urine Mucus Many H (None) /hpf Assessment and Plan Plan: Assessment: 1. Hypovolemic hyponatremia from poor solute intake and excess fluid intake. Sodium level 121 on admission - 124 today. TSH mildly elevated at 5.5. Urine osmolality 333. Cortisol level XLI. 2. Hypokalemia secondary to diuresis and hypomagnesemia. Replaced. Better. 3. Hypomagnesemia from poor intake and diuresis. Replaced. 4. Generalized weakness. 5. Lower extremity infection on antibiotics. 6. Acute kidney injury mostly prerenal secondary to hypovolemia. Creatinine 1.14 on admission - 0.86 today. 7. Hypophosphatemia from poor intake. Plan: Maintain normal saline at 75 mL an hour. Lasix 40 mg IV once today. Maintain potassium supplementation. 1200 mL fluid restriction. Encouraged oral intake. Follow-up urine sodium level. I will give her dose of Na-Phos today. Increase dose of midodrine. Continue to monitor renal function and urine output.
[2021-06-20] MEDS: MIDODRINE 5 MG TAB PO SCH ×3 (10:56→20:37)
[2021-06-20] MEDS: LEVOTHYROXINE 50 MCG TAB PO SCH (10:56)
[2021-06-20] MEDS: PANTOPRAZOLE 40 MG TABLET PO SCH (10:57)
[2021-06-20] MEDS: MAGNESIUM OXIDE 400 MG TAB PO SCH ×2 (10:57→20:42)
[2021-06-20] MEDS: NITROFURANTOIN MONOHYD/M-CRYST 100 MG CAP PO SCH ×2 (10:57→20:42)
[2021-06-20] MEDS: AMPICILLIN-SULBACTAM 3 GM in SODIUM CHLORIDE 0.9% 100 ML IVPB SCH ×2 (10:58→16:56)
[2021-06-20] MEDS: HEPARIN SODIUM,PORCINE/PF 5,000 UNIT/0.5 ML SYRINGE SQ SCH ×2 (10:58→20:41)
[2021-06-20] MEDS: SODIUM CHLORIDE 0.9% 1,000 ML IV SCH ×2 (10:59→19:45)
[2021-06-20] MEDS: POTASSIUM CHLORIDE ER 20 MEQ TAB.ER PO SCH (10:59)
--- NOTE | 2021-06-20 11:17 | XR ---
Lumbar spine HISTORY: Low back pain 4 views the lumbar spine, correlation to lumbar MRI 03/17/2021 Exam somewhat limited technically. There is a spinal curvature. Multilevel spondylosis is again seen. Facet arthropathy changes are present in lower lumbar spine. Loss of disc height is present L5-S1, L 3-4, L2-3. Lumbar vertebral bodies show preserved height, bone mineralization is reduced. IMPRESSION: Degenerative disc disease and facet arthropathy, osteopenia. Slight spinal curvature.
[2021-06-20 12:17] LABS: Basophils # (A) 0.02 X 10*3/uL (0.00-0.10); Basophils % (A) 0.1 %; Eosinophils # (A) 0.12 X 10*3/uL (0.04-0.35); Eosinophils % (A) 0.8 %; HCT 37.5 % (37.2-46.3); HGB 13.1 g/dL (12.0-15.0); Lymphocytes # (A) 0.48 X 10*3/uL (0.90-5.00); Lymphocytes % (A) 3.3 %; MCH 31.8 pg (27.0-32.0); MCHC 34.9 g/dL (32.0-37.0); Mean Platelet Volume 11.2 fL (9.5-12.2); Monocytes # (A) 0.68 X 10*3/uL (0.20-1.00); Monocytes % (A) 4.7 %; Neutrophils # (A) 12.95 X 10*3/uL (1.80-7.70); Neutrophils % (A) 90.5 %; Platelet Count 185 X 10*3/uL (140-440); RBC 4.12 X 10*6/uL (4.10-5.20); RDW 17.1 % (11.5-14.5); WBC 14.33 X 10*3/uL (4.50-10.00)
--- NOTE | 2021-06-20 12:43 | US ---
EXAMINATION TYPE: US liver DATE OF EXAM: 06/20/2021 COMPARISON: CT chest 01/31/2021 CLINICAL HISTORY: high bilirubin. EC patient with hyponatremia, hypokalemia, hypomagnesemia; prior ch olecystectomy and surgery for weight reduction EXAM MEASUREMENTS: Liver Length: 11.9 cm Gallbladder Wall: surgically removed CBD: 0.6 cm Right Kidney: 10.7 x 5.1 x 5.0 cm Pancreas: Obscured by bowel gas Liver: limitedly seen due to overlying bowel gas; ascites noted at right liver lobe, exam likely chavez ited by patient body habitus. Coarse echotexture is noted. Gallbladder: surgically removed Evidence for sonographic Terrazas's sign: no CBD: wnl Right Kidney: No hydronephrosis or masses seen; overlying bowel gas noted Ascites is noted in all 4 abdominal quadrants with largest fluid collection noted LLQ = 11.2cm A/P. IMPRESSION: There may be underlying hepatocellular disease versus hepatic steatosis. Postcholecystect chino change. There is ascites. Limitations to the exam.
--- NOTE | 2021-06-20 13:36 | P.PN ---
Subjective covering over the weekend on 05/21 and 06/20 This is a pleasant 65 years old female with past medical history of CVA/TIA, Fibromyalgia, GERD, Osteoarthritis (OA), "DUMPING SYNDROME" URINARY INCONTINENCE, TIA X3, restless leg. Alcohol abuse. Bilateral lower extremity weakness for the past 1-1/2 years progressively worsening with unknown etiology has been evaluated by neurologist for She is patient of Dr. Claudio Decker. Patient presents today stating that she has more weakness in her legs. Also she reports weakness in the upper extremity that dropped some stuff from her right hand, actually she is complaining of from weakness all over. Recently she could not get up from her chair vision says that her weakness in both sides are symmetrical. And her daughter came and she did not like her current and ask her to come to emergency room Last Monday about 3-4 days ago she fell and called EMS to help her get up. But she did not come to emergency room Patient states that Dr. Fleming has been treating her weakness for the last 2 months but weakness is getting worse. Also she is complaining of from some urinary symptoms stating that she's been diagnosed with UTI on antibiotics but she could not remember the name of the antibiotics. Patient denies any headache. No chest pain or dyspnea. No nausea vomiting or diarrhea. She denies smoking, alcohol or illicit drugs. Also she's been treated for with in her left lower leg with dressing is in place. The area looks inflamed with some purulent discharge Of note patient has been evaluated by neurologist [address] White for her bilateral proximal lower extremity weakness for 1.5 years and its progressive Vital signs stable, blood pressure is low normal Labs showing leukocytosis of 16.1 K. INR is 1.6. Sodium 121, potassium 2.5, creatinine 1.14. Glucose 101, magnesium 1.2, AST slightly elevated at 71 increased total bilirubin of 3.4, proBNP is 2440. Troponin negative at 0.025. TSH is elevated at 5.55. Coronavirus not detected EKG showing normal sinus rhythm at [address] T changes, QTC is 504. Another EKG showing normal sinus rhythm at [address]-T changes and QTC is 484. Chest x-ray: There is some pleural fluid and infiltrate and atelectasis of the left lung base which is increased compared to old exam. No heart failure seen On admission patient received several doses of magnesium and potassium, IV Protonix, and 2-3 L of normal saline by emergency room team Of note her parathyroid hormone was elevated 89.83 months ago on 03/16/2021 06/20/2021 Patient today is awake alert, still complaining of from same weakness as inserted. Although states that she is not getting worse. She is complaining of from low back pain from a fall a few weeks prior to coming to the hospital. Left lower leg cellulitis and wound are better and improving Blood pressure is better at 115. Labs show distal leukocytosis of 13.5. Sodium improved at 124. Back to normal at 0.8. Bilirubin still elevated at 2.3, AST stable at 78, ALT normal at 26. Vitamin B12 is 1142. Folate 8.2. pro-Calcitonin is elevated at 1.1. Parathyroid hormone is elevated which is expected with hypocalcemia but patient can follow-up as an outpatient. She was informed and agrees. Cortisol level is 41. Urine cultures to pending, blood culture pending. Wound culture is ordered Lumbar x-ray: Degenerative disc disease and facet arthropathy, osteopenia, slight spinal curvature. Liver ultrasound, Liver ultrasound, there may be underlying hepatocellular disease versus hepatic steatosis. Ascites in all 4 abdominal quadrants. Post cholecystectomy. She was provided with Lasix 40 mg, sodium phosphate, phosphate replacement and increased dose of midodrine 10 mg 3 times a day Patient remains on Unasyn and normal saline 75 mL/h. I discussed with the patient to be transferred to tertiary [facility] for GI evaluation since it's not available in this facility during this weekend and probably this coming week. Patient wanted to talk to her PCP Dr. Camara will be back tomorrow to cover the patient Objective - Vital Signs Vital signs: Vital Signs Temp 98 F 06/18/21 23:47 Pulse 88 06/20/21 11:13 Resp 18 06/20/21 11:13 BP 115/86 06/20/21 11:13 Pulse Ox 95 06/20/21 11:13 Intake & Output 06/19/21 06/20/21 06/20/21 18:59 06:59 18:59 Output Total 100 Balance -100 Output: Urine 100 - Exam -GENERAL: The patient is alert and oriented x3, not in any acute distress. gener ally weak -HEENT: Pupils are round and equally reacting to light. EOMI. No scleral icterus. No jaundice. Normocephalic, atraumatic. No pharyngeal erythema. No thyromegaly. CARDIOVASCULAR: S1 and S2 present. No murmurs, rubs, or gallops. PULMONARY: Chest is clear to auscultation, no wheezing or crackles. -ABDOMEN: Soft, nontender, mild abdominal distention, normoactive bowel sounds. No palpable organomegaly. MUSCULOSKELETAL: No joint swelling or deformity. -EXTREMITIES: No cyanosis, clubbing, or pedal edema. Left leg cellulitis, improving NEUROLOGICAL: Gross neurological examination did not reveal any focal deficits. SKIN: No rashes. no petechiae. - Labs CBC & Chem 7: 06/20/21 08:29 06/20/21 08:29 Labs: Abnormal Lab Results - Last 24 Hours (Table) 06/19/21 06/19/21 06/19/21 Range/Units 10:14 10:14 10:14 WBC (3.8-10.6) k/uL RDW (11.5-15.5) % Immature Gran # (0.00-0.04) X 10*3/uL Neutrophils # (1.3-7.7) k/uL Lymphocytes # (1.0-4.8) k/uL Sodium (137-145) mmol/L Potassium (3.5-5.1) mmol/L Chloride (98-107) mmol/L BUN (7-17) mg/dL Creatinine (0.52-1.04) mg/dL Glucose (74-99) mg/dL Calcium (8.4-10.2) mg/dL Phosphorus (2.5-4.5) mg/dL Total Bilirubin (0.2-1.3) mg/dL AST (14-36) U/L Total Protein (6.3-8.2) g/dL Albumin (3.5-5.0) g/dL Vitamin B12 1142.0 H (200.0-944.0) pg/mL Procalcitonin 1.13 H (0.02-0.09) ng/mL PTH Intact 145.0 H (14.0-72.0) pg/mL Urine Appearance (Clear) Urine Protein (Negative) Urine Bilirubin (Negative) Ur Leukocyte Esterase (Negative) Urine WBC (0-5) /hpf Ur Squamous Epith Cells (0-4) /hpf Urine Bacteria (None) /hpf Hyaline Casts (0-2) /lpf Urine Mucus (None) /hpf 06/19/21 06/19/21 06/19/21 Range/Units 19:42 19:42 19:42 WBC 11.4 H (3.8-10.6) k/uL RDW 15.8 H (11.5-15.5) % Immature Gran # (0.00-0.04) X 10*3/uL Neutrophils # 9.8 H (1.3-7.7) k/uL Lymphocytes # 0.8 L (1.0-4.8) k/uL Sodium 123 L 123 L (137-145) mmol/L Potassium 3.4 L (3.5-5.1) mmol/L Chloride 87 L 87 L (98-107) mmol/L BUN 18 H (7-17) mg/dL Creatinine 1.05 H 1.07 H (0.52-1.04) mg/dL Glucose 116 H 118 H (74-99) mg/dL Calcium 6.8 L 6.8 L (8.4-10.2) mg/dL Phosphorus (2.5-4.5) mg/dL Total Bilirubin 2.4 H (0.2-1.3) mg/dL AST 69 H (14-36) U/L Total Protein 5.0 L (6.3-8.2) g/dL Albumin 2.4 L (3.5-5.0) g/dL Vitamin B12 (200.0-944.0) pg/mL Procalcitonin (0.02-0.09) ng/mL PTH Intact (14.0-72.0) pg/mL Urine Appearance (Clear) Urine Protein (Negative) Urine Bilirubin (Negative) Ur Leukocyte Esterase (Negative) Urine WBC (0-5) /hpf Ur Squamous Epith Cells (0-4) /hpf Urine Bacteria (None) /hpf Hyaline Casts (0-2) /lpf Urine Mucus (None) /hpf 06/19/21 06/20/21 06/20/21 Range/Units 20:30 08:29 08:29 WBC 14.33 H (3.8-10.6) k/uL RDW 17.1 H (11.5-15.5) % Immature Gran # 0.08 H (0.00-0.04) X 10*3/uL Neutrophils # 12.95 H (1.3-7.7) k/uL Lymphocytes # 0.48 L (1.0-4.8) k/uL Sodium 124 L (137-145) mmol/L Potassium (3.5-5.1) mmol/L Chloride 90 L (98-107) mmol/L BUN 18 H (7-17) mg/dL Creatinine (0.52-1.04) mg/dL Glucose 111 H (74-99) mg/dL Calcium 7.0 L (8.4-10.2) mg/dL Phosphorus 2.0 L (2.5-4.5) mg/dL Total Bilirubin 2.3 H (0.2-1.3) mg/dL AST 78 H (14-36) U/L Total Protein 4.8 L (6.3-8.2) g/dL Albumin 2.2 L (3.5-5.0) g/dL Vitamin B12 (200.0-944.0) pg/mL Procalcitonin (0.02-0.09) ng/mL PTH Intact (14.0-72.0) pg/mL Urine Appearance Cloudy H (Clear) Urine Protein Trace H (Negative) Urine Bilirubin 1+ H (Negative) Ur Leukocyte Esterase Trace H (Negative) Urine WBC 26 H (0-5) /hpf Ur Squamous Epith Cells 15 H (0-4) /hpf Urine Bacteria Rare H (None) /hpf Hyaline Casts 314 H (0-2) /lpf Urine Mucus Many H (None) /hpf Microbiology - Last 24 Hours (Table) 06/19/21 10:14 Blood Culture - Preliminary Blood No Growth after 24 hours 06/19/21 20:30 Urine Culture - Preliminary Urine,Voided Assessment and Plan Assessment: Jaundice with high bilirubin but stable and ascites Increased left lower lobe infiltrate and pleural effusion suspicious for pneumonia Hyponatremia, hypokalemia and hypomagnesemia. Most likely hypovolemic hyponatremia Hypotension, was on midodrine at home , increased dose of midodrine Urinary tract infection Left leg cellulitis Generalized weakness Iatrogenic hyperthyroidism, Elevated TSH and free T4 while she is on levothyroxine History of bilateral lower extremity weakness for 1.5-2 years, has been evaluated by neurologist in the past history of orthostatic hypotension and dizziness History of Vitamin B12 and folate deficiency History of high PTH History of GERD History of fibromyalgia History of CVA/TIA History of dumping syndrome Urinary incontinence Plan: This is a pleasant 65 years old female who presents with left lower lobe pneumonia and hyponatremia Suggested for the patient to transfer to tertiary center for GI evaluation. Patient preferred to wait for her PCP Dr. Camara tomorrow Follow-up urine culture and continue with Unasyn Monitor sodium closely and other electrolytes Continue with fluids and electrolyte management as per window shade cutter Lower the dose of levothyroxine 100 g down to 50 g Monitor sodium and other electrolytes, ordered stat labs. Consult nephrology service for the hyponatremia.IV fluids was already stopped by 80 team. No more IV fluids for now and will wait for the repeat sodium and nephrology consult Labs and medication were reviewed.. Continue same treatment. Continue with symptomatic treatment. Resume home medication. Monitor lytes and vitals. DVT and GI prophylaxis. Further recommendations depends on the clinical course of the patient DVT prophylaxis: Subcutaneous heparin GI Prophylaxis: Ppi PT/OT: Pending Prognosis is guarded
[2021-06-20] MEDS: SODIUM PHOSPHATE 10 MMOL in SODIUM CHLORIDE 0.9% 250 ML IVPB SCH ×2 (14:28→16:56)
[2021-06-21] MEDS: AMPICILLIN-SULBACTAM 3 GM in SODIUM CHLORIDE 0.9% 100 ML IVPB SCH ×4 (00:46→16:55)
[2021-06-21] MEDS: LEVOTHYROXINE 50 MCG TAB PO SCH (05:43)
[2021-06-21] MEDS: HEPARIN SODIUM,PORCINE/PF 5,000 UNIT/0.5 ML SYRINGE SQ SCH ×2 (08:02→21:03)
[2021-06-21] MEDS: MAGNESIUM OXIDE 400 MG TAB PO SCH ×2 (08:03→21:02)
[2021-06-21] MEDS: POTASSIUM CHLORIDE ER 20 MEQ TAB.ER PO SCH (08:03)
[2021-06-21] MEDS: PANTOPRAZOLE 40 MG TABLET PO SCH (08:03)
[2021-06-21] MEDS: MIDODRINE 5 MG TAB PO SCH ×3 (08:03→16:54)
[2021-06-21] MEDS: NITROFURANTOIN MONOHYD/M-CRYST 100 MG CAP PO SCH ×2 (08:16→21:02)
--- NOTE | 2021-06-21 08:48 | XR ---
EXAMINATION TYPE: XR chest 1V DATE OF EXAM: 06/21/2021 COMPARISON: 06/19/2021 HISTORY: Shortness of breath TECHNIQUE: Single frontal view of the chest is obtained. FINDINGS: Bilateral lower lobe infiltrate and small effusion. No pneumothorax. Heart size stable. No overt failure. Limited inspiration. Postsurgical change overlying the cervical spine. Arthropathy of the shoulders with diffuse osteopenia. IMPRESSION: Bilateral lower lobe infiltrate and small effusion.
[2021-06-21] MEDS ORDERED: Phosphorus Replacement Protoco 1 EACH MISC MISCELLANE PRN (09:28)
[2021-06-21] MEDS ORDERED: FUROSEMIDE 10 MG/ML 4 ML VIAL IV STA (09:28)
--- NOTE | 2021-06-21 09:30 | P.PN ---
Subjective Patient is seen in follow-up for hyponatremia. Sodium level 124 yesterday. Urine output improved with IV Lasix. She is receiving IV fluids. Creatinine 0.86 yesterday. No chest pain or shortness of breath. Blood pressure stable in systolic 80s to 90s. Vital signs are stable. General: The patient appeared well nourished and normally developed. HEENT: Head exam is unremarkable. LUNGS: Breath sounds decreased. HEART: Rate and Rhythm are regular. ABDOMEN: Soft, no distention. EXTREMITITES: 1+ edema. No drainage. Objective - Vital Signs Vital signs: Vital Signs Temp 97.3 F L 06/20/21 23:35 Pulse 81 06/20/21 23:35 Resp 16 06/20/21 20:00 BP 87/63 06/20/21 23:35 Pulse Ox 95 06/20/21 23:35 Intake & Output 06/20/21 06/21/21 06/21/21 18:59 06:59 18:59 Intake Total 240 Output Total 600 1170 Balance -600 -930 Intake: Oral 240 Output: Urine 600 1170 Other: Voiding Method Indwelling Catheter Indwelling Catheter - Labs CBC & Chem 7: 06/20/21 08:29 06/20/21 08:29 Labs: Abnormal Lab Results - Last 24 Hours (Table) 06/19/21 06/20/21 06/21/21 Range/Units 20:30 08:29 07:33 WBC 14.33 H (4.50-10.00) X 10*3/uL RDW 17.1 H (11.5-14.5) % Immature Gran # 0.08 H (0.00-0.04) X 10*3/uL Neutrophils # 12.95 H (1.80-7.70) X 10*3/uL Lymphocytes # 0.48 L (0.90-5.00) X 10*3/uL Phosphorus 2.1 L (2.5-4.5) mg/dL Ur Random Sodium <20 L (40-220) mmol/L Microbiology - Last 24 Hours (Table) 06/19/21 10:14 Blood Culture - Preliminary Blood No Growth after 24 hours 06/19/21 20:30 Urine Culture - Preliminary Urine,Voided Assessment and Plan Plan: Assessment: 1. Hypovolemic hyponatremia from poor solute intake and excess fluid intake. Sodium level 121 on admission - 124 yesterday. TSH mildly elevated at 5.5. Urine osmolality 333. Urine sodium less than 20. Cortisol level 41. 2. Hypokalemia secondary to diuresis and hypomagnesemia. Replaced. Better. 3. Hypomagnesemia from poor intake and diuresis. Replaced. 4. Generalized weakness. 5. Lower extremity infection on antibiotics. 6. Acute kidney injury mostly prerenal secondary to hypovolemia. Creatinine 1.14 on admission - 0.86 yesterday. 7. Hypophosphatemia from poor intake. Replaced. Plan: Hep-Lock IV fluids. Repeat Lasix 40 mg IV once today. Maintain potassium supplementation. 1200 mL fluid restriction. Encouraged oral intake. I will give her another dose of Na-Phos today. Maintain midodrine. Continue to monitor renal function and urine output. Morning labs pending.
[2021-06-21] MEDS: SODIUM PHOSPHATE 10 MMOL in SODIUM CHLORIDE 0.9% 250 ML IVPB SCH ×2 (10:39→12:36)
[2021-06-21 11:50] LABS: ALT 25 U/L (4-34); AST 66 U/L (14-36); African American GFR (CKD) >90 (>60 ml/min/1.73 sqM); Albumin 2.2 g/dL (3.5-5.0); Albumin/Globulin Ratio 0.8; Alkaline Phosphatase 128 U/L (38-126); Anion Gap 8 mmol/L; Blood Urea Nitrogen 14 mg/dL (7-17); Calcium 7.2 mg/dL (8.4-10.2); Carbon Dioxide 21 mmol/L (22-30); Chloride 96 mmol/L (98-107); Globulin 2.6 g/dL; Glucose 82 mg/dL (74-99); Magnesium 1.6 mg/dL (1.6-2.3); Non-African American GFR(CKD) >90 (>60 ml/min/1.73 sqM); Sodium 125 mmol/L (137-145); Total Bilirubin 2.2 mg/dL (0.2-1.3); Total Protein 4.8 g/dL (6.3-8.2)
--- NOTE | 2021-06-21 15:38 | P.CONS ---
History of Present Illness - Reason for Consult Consult date: 06/21/21 jaundice Requesting physician: Karsten E Sheet - Chief Complaint Weakness - History of Present Illness This is a 65-year-old female who presented to the emergency department 2 days ago with chief complaint of weakness, not eating or drinking well, and difficulty caring for herself. Patient has a past medical history including dumping syndrome, heart disease significant alcohol abuse, and previous TIA/CVA. Patient states she's not been eating well over the last month or so. States that she is down approximately 17 pounds in the last 2 months. On admission she was noted to have elevation in her LFTs therefore gastroenterology was consulted. Patient does admit to significant alcohol abuse over the last 40 years or so. States she drinks 1-2 bottles a day, however states last time drinking was March. She has a history of a previous cholecystectomy done years ago, unsure why. Liver ultrasound showed coarse echotexture of the liver, ascites in the right lobe, possible underlying hepatocellular disease versus hepatic steatosis. Postcholecystectomy change. Patient has had some mild leukocytosis since admission as well as noted hyponatremia. WBC 14.3 hemoglobin 13 hematocrit 37 platelet count 185,000 INR 1.6 total bilirubin 2.2 AST 66 ALT 25 alkaline phosphatase 128. Patient denies any abdominal pain, nausea, or vomiting. States she still has some generalized weakness however she has been eating a little bit more. Review of Systems REVIEW OF SYSTEMS: CARDIOPULMONARY: No chest pain or shortness of breath. Gastrointestinal: No abdominal pain. Patient has had recent weight loss associated with the neck of appetite. No nausea or vomiting. No hematemesis, coffee-ground emesis. No rectal bleeding, or melena. GENITOURINARY: No dysuria or hematuria. MUSCULOSKELETAL: Reports normal range of motion., Joint pain. SKIN: No rashes. No jaundice. ENDOCRINE: No chills, fevers. Weight loss approximately 17 pounds in the last 1-2 months.. No polydipsia or polyuria. PSYCHIATRIC: Unremarkable. NEUROLOGY: No change in mental status. Denies dizziness, headache. ENT: Vision unremarkable. CONSTITUTIONAL: Decreased appetite with decreased oral intake. Weight loss approximately 17 pounds the last 2 months. No fever, chills, night sweats. Past Medical History Past Medical History: Chest Pain / Angina, CVA/TIA, Fibromyalgia, GERD/Reflux, Osteoarthritis (OA) Additional Past Medical History / Comment(s): "DUMPING SYNDROME" URINARY INCON TINENCE, TIA X3, restless leg History of Any Multi-Drug Resistant Organisms: None Reported Past Surgical History: Bariatric Surgery, Cholecystectomy, Hysterectomy, Orthopedic Surgery Additional Past Surgical History / Comment(s): HX GASTRIC BYPASS, PAIN CLINIC PROCEDURE, c3-7 fusions Past Anesthesia/Blood Transfusion Reactions: No Reported Reaction Additional Past Anesthesia/Blood Transfusion Reaction / Comm: REQUIRE ABOVE AVERAGE LIDOCAINE DOSE. Past Psychological History: No Psychological Hx Reported Smoking Status: Former smoker Past Alcohol Use History: Occasional Past Drug Use History: None Reported - Past Family History Father Family Medical History: Diabetes Mellitus, Myocardial Infarction ([place]) Mother Family Medical History: Cancer, Myocardial Infarction ([place]) Medications and Allergies Home Medications Medication Instructions Recorded Confirmed Type Multivitamin [Multivitamins Adult 1 tab PO DAILY 03/15/21 06/19/21 History Gummies] Midodrine [ProAmatine] 5 mg PO AC-TID tab 03/18/21 06/19/21 Rx Cephalexin [Keflex] 500 mg PO DIRECTED 06/19/21 06/19/21 History Furosemide [Lasix] 40 mg PO DAILY PRN 06/19/21 06/19/21 History Levothyroxine Sodium [Synthroid] 100 mcg PO DAILY 06/19/21 06/19/21 History Mupirocin 2% Oint [Bactroban 2% 1 applic TOPICAL BID 06/19/21 06/19/21 History Oint] Nitrofurantoin Monohyd/M-Cryst 100 mg PO BID 06/19/21 06/19/21 History [Macrobid] Potassium Chloride ER [K-Dur 20] 20 meq PO DAILY 06/19/21 06/19/21 History Vitamin B Complex 1 cap PO DAILY 06/19/21 06/19/21 History rOPINIRole HCL [Requip] 0.5 mg PO HS PRN 06/19/21 06/19/21 History Allergies Allergy/AdvReac Type Severity Reaction Status Date / Time furosemide [From Lasix] AdvReac CAUSES Verified 06/19/21 08:50 BLOOD PRESSURE TO DROP QUICKLY MRI CONTRAST AdvReac FLUSHING Uncoded 06/19/21 08:50 Physical Exam Vitals: Vital Signs Temp Pulse Pulse Resp BP BP Pulse Ox 06/20/21 23:35 97.3 F L 81 87/63 95 06/20/21 20:00 85 16 83/58 97 06/20/21 18:38 80 18 103/63 98 06/20/21 17:02 84 18 89/69 98 06/20/21 14:33 83 18 100/82 95 06/20/21 11:13 88 18 115/86 95 Intake and Output 06/20/21 06/21/21 06/21/21 22:59 06:59 14:59 Intake Total 240 Output Total 1200 220 Balance -1200 20 Intake: Oral 240 Output: Urine 1200 220 Other: Voiding Method Indwelling Catheter Indwelling Catheter General appearance: The patient is alert, oriented, appears in no acute distress. HET: Head is normocephalic and atraumatic. Conjunctiva pink. Sclera anicteric. Neck: Supple without lymphadenopathy. Trachea midline. Heart: S1 S2. Regular rate and rhythm. Lungs: Clear to auscultation. Abdomen: Soft, nontender, nondistended with bowel sounds. No guarding or rigidity. Skin: No rashes. No jaundice. Extremities: Normal skin color and turgor. +2 bilateral lower extremity pitting edema Neurological: No focal deficits. Alert and oriented 3.. Results CBC & Chem 7: 06/20/21 08:29 06/21/21 07:33 Labs: Abnormal Lab Results - Last 24 Hours (Table) 06/19/21 06/20/21 06/21/21 Range/Units 20:30 08:29 07:33 WBC 14.33 H (4.50-10.00) X 10*3/uL RDW 17.1 H (11.5-14.5) % Immature Gran # 0.08 H (0.00-0.04) X 10*3/uL Neutrophils # 12.95 H (1.80-7.70) X 10*3/uL Lymphocytes # 0.48 L (0.90-5.00) X 10*3/uL Phosphorus 2.1 L (2.5-4.5) mg/dL Ur Random Sodium <20 L (40-220) mmol/L Microbiology - Last 24 Hours (Table) 06/21/21 Unknown Wound Culture - Preliminary Leg - Left 06/21/21 Unknown Anaerobic Culture - Preliminary Leg - Left 10/09/21 10:14 Blood Culture - Preliminary Blood No Growth after 24 hours 06/19/21 20:30 Urine Culture - Preliminary Urine,Voided US - abdomen: report reviewed (Ultrasound of the liver shows there is possible underlying hepatocellular disease versus hepatic steatosis. Postcholecystectomy change. There is ascites. Limitations to the exam) Assessment and Plan (1) Hyperbilirubinemia Narrative/Plan: 65-year-old with multiple comorbidities who presented to the emergency department with complaints of increased weakness, fatigue and difficulty caring for herself at home. She has a significant history of alcohol abuse over the last 40 years duration where she's been drinking 1-2 bottles of wine daily. She states her last drinking was over March. On admission she was noted to have elevated bilirubin and AST, consistent with alcoholic liver disease. Ult rasound of the liver shows coarse echotexture of liver, ascites in the right lobe of liver as well as hepatocellular disease versus hepatic steatosis. Patient does have a history of cholecystectomy many years ago, with which she is unsure why. However liver ultrasound does not show any CBD dilation. Patient denies any previous history of ascites no previous history of paracentesis. Current Visit: Yes Status: Acute Code(s): E80.6 - OTHER DISORDERS OF BILIRUBIN METABOLISM SNOMED Code(s): 07943015 (2) Ascites Current Visit: Yes Status: Acute Code(s): R18.8 - OTHER ASCITES SNOMED Code(s): 074780826 (3) Alcohol abuse Current Visit: Yes Status: Acute Code(s): F10.10 - ALCOHOL ABUSE, UNCOMPLICATED SNOMED Code(s): 92487702 (4) Hyponatremia Current Visit: Yes Status: Acute Code(s): E87.1 - HYPO-OSMOLALITY AND HYPONATREMIA SNOMED Code(s): 40655644 Plan: 1. Continue symptomatic and supportive care 2. Will begin patient on Aldactone 50 mg daily, apparently patient has not been tolerating furosemide due to hypotension 3. Continue alcohol abstinence 4. Daily CMP 5. Patient will require outpatient surveillance with gastroenterology Thank you for this consultation, we will continue to follow. Dr. John Burrows I agree with the dictator's note, documented as a scribe by Sheryl Linares.
[2021-06-22] MEDS: AMPICILLIN-SULBACTAM 3 GM in SODIUM CHLORIDE 0.9% 100 ML IVPB SCH ×5 (00:16→23:47)
[2021-06-22] MEDS: LEVOTHYROXINE 50 MCG TAB PO SCH (06:00)
[2021-06-22 07:52] LABS: African American GFR (CKD) >90 (>60 ml/min/1.73 sqM); Anion Gap 9 mmol/L; Blood Urea Nitrogen 12 mg/dL (7-17); Calcium 7.2 mg/dL (8.4-10.2); Carbon Dioxide 25 mmol/L (22-30); Chloride 95 mmol/L (98-107); Glucose 103 mg/dL (74-99); Magnesium 1.5 mg/dL (1.6-2.3); Non-African American GFR(CKD) >90 (>60 ml/min/1.73 sqM); Phosphorus 2.2 mg/dL (2.5-4.5); Potassium 3.5 mmol/L (3.5-5.1); Sodium 129 mmol/L (137-145)
--- NOTE | 2021-06-22 08:43 | P.PN ---
Subjective Progress Note Date: 06/21/21 She continue to report weakness today, denies nausea, vomiting, numbness or tingling. Labs with elevated LFTs and bilirubin as well as hyponatremia. Objective - Vital Signs Vital signs: Vital Signs Temp 98.0 F 06/22/21 07:00 Pulse 98 06/22/21 07:00 Resp 18 06/22/21 07:00 BP 107/73 06/22/21 07:00 Pulse Ox 96 06/22/21 07:00 Intake & Output 06/21/21 06/22/21 06/22/21 18:59 06:59 18:59 Output Total 850 1250 Balance -850 -1250 Output: Urine 850 1250 Other: Voiding Method Indwelling Catheter Indwelling Catheter # Bowel Movements 1 - Exam General: elderly female in NAD CV: RRR, no murmur Lungs: normal effort, clear thoughout Neuro: alert and oriented x3, no focal deficit Skin: warm and dry - Labs CBC & Chem 7: 06/20/21 08:29 06/22/21 07:06 Labs: Abnormal Lab Results - Last 24 Hours (Table) 06/21/21 06/21/21 06/22/21 Range/Units 07:33 07:33 07:06 Sodium 125 L 129 L (137-145) mmol/L Chloride 96 L 95 L (98-107) mmol/L Carbon Dioxide 21 L (22-30) mmol/L Glucose 103 H (74-99) mg/dL Calcium 7.2 L 7.2 L (8.4-10.2) mg/dL Phosphorus 2.1 L 2.2 L (2.5-4.5) mg/dL Magnesium 1.5 L (1.6-2.3) mg/dL Total Bilirubin 2.2 H (0.2-1.3) mg/dL AST 66 H (14-36) U/L Alkaline Phosphatase 128 H (38-126) U/L Total Protein 4.8 L (6.3-8.2) g/dL Albumin 2.2 L (3.5-5.0) g/dL Microbiology - Last 24 Hours (Table) 06/21/21 Unknown Gram Stain - Preliminary Leg - Left Wound Culture - Preliminary 06/19/21 20:30 Urine Culture - Final Urine,Voided 06/19/21 10:14 Blood Culture - Preliminary Blood No Growth after 48 hours 06/21/21 Unknown Anaerobic Culture - Preliminary Leg - Left Assessment and Plan Plan: GI consulted, start aldactone and continue with midodrine and unasyn. Nephrology following and pt given lasix x1 dose. Continue to closely monitor liver function and electrolytes
[2021-06-22] MEDS: HEPARIN SODIUM,PORCINE/PF 5,000 UNIT/0.5 ML SYRINGE SQ SCH ×2 (08:54→21:21)
[2021-06-22] MEDS: SPIRONOLACTONE 25 MG TAB PO SCH (08:55)
[2021-06-22] MEDS: MAGNESIUM OXIDE 400 MG TAB PO SCH ×2 (08:55→21:20)
[2021-06-22] MEDS: POTASSIUM CHLORIDE ER 20 MEQ TAB.ER PO SCH (08:55)
[2021-06-22] MEDS: MIDODRINE 5 MG TAB PO SCH ×3 (08:55→17:00)
[2021-06-22] MEDS: PANTOPRAZOLE 40 MG TABLET PO SCH (08:55)
[2021-06-22] MEDS: NITROFURANTOIN MONOHYD/M-CRYST 100 MG CAP PO SCH ×2 (09:14→21:21)
[2021-06-22] MEDS ORDERED: POTASSIUM CHLORIDE ER 20 MEQ TAB.ER PO STA ×2 (09:27→09:29)
[2021-06-22] MEDS ORDERED: FUROSEMIDE 10 MG/ML 4 ML VIAL IV STA (09:27)
--- NOTE | 2021-06-22 09:30 | P.PN ---
Subjective Patient is seen in follow-up for hyponatremia. Sodium level 129. Urine output improved with IV Lasix. GFR at baseline. No chest pain or shortness of breath. Blood pressure stable. Oral intake fair. No vomiting or diarrhea. Vital signs are stable. General: The patient appeared well nourished and normally developed. HEENT: Head exam is unremarkable. LUNGS: Breath sounds decreased. HEART: Rate and Rhythm are regular. ABDOMEN: Soft, no distention. EXTREMITITES: 1+ edema. No drainage. Objective - Vital Signs Vital signs: Vital Signs Temp 98.0 F 06/22/21 07:00 Pulse 98 06/22/21 07:00 Resp 18 06/22/21 07:00 BP 107/73 06/22/21 07:00 Pulse Ox 96 06/22/21 07:00 Intake & Output 06/21/21 06/22/21 06/22/21 18:59 06:59 18:59 Output Total 850 1250 Balance -850 -1250 Output: Urine 850 1250 Other: Voiding Method Indwelling Catheter Indwelling Catheter # Bowel Movements 1 - Labs CBC & Chem 7: 06/20/21 08:29 06/22/21 07:06 Labs: Abnormal Lab Results - Last 24 Hours (Table) 06/21/21 06/22/21 Range/Units 07:33 07:06 Sodium 125 L 129 L (137-145) mmol/L Chloride 96 L 95 L (98-107) mmol/L Carbon Dioxide 21 L (22-30) mmol/L Glucose 103 H (74-99) mg/dL Calcium 7.2 L 7.2 L (8.4-10.2) mg/dL Phosphorus 2.2 L (2.5-4.5) mg/dL Magnesium 1.5 L (1.6-2.3) mg/dL Total Bilirubin 2.2 H (0.2-1.3) mg/dL AST 66 H (14-36) U/L Alkaline Phosphatase 128 H (38-126) U/L Total Protein 4.8 L (6.3-8.2) g/dL Albumin 2.2 L (3.5-5.0) g/dL Microbiology - Last 24 Hours (Table) 06/21/21 Unknown Gram Stain - Preliminary Leg - Left Wound Culture - Preliminary 06/19/21 20:30 Urine Culture - Final Urine,Voided 06/19/21 10:14 Blood Culture - Preliminary Blood No Growth after 48 hours 06/21/21 Unknown Anaerobic Culture - Preliminary Leg - Left Assessment and Plan Plan: Assessment: 1. Hypovolemic hyponatremia from poor solute intake and excess fluid intake. Sodium level 121 on admission - 129 today. TSH mildly elevated at 5.5. Urine osmolality 333. Urine sodium less than 20. Cortisol level 41. 2. Hypokalemia secondary to diuresis and hypomagnesemia. On maintenance supp lementation. 3. Hypomagnesemia from poor intake and diuresis. 4. Generalized weakness. 5. Lower extremity infection on antibiotics. 6. Acute kidney injury mostly prerenal secondary to hypovolemia. Creatinine 1.14 on admission - 0.68 today. 7. Hypophosphatemia from poor intake. Replaced. 8. Volume overload. Improved with diuresis. Plan: Repeat Lasix 40 mg IV once today. Maintain potassium supplementation. Additional 20 mEq today. 1500 mL fluid restriction. Encouraged oral intake. Maintain midodrine. Continue to monitor renal function and urine output. Replace magnesium.
[2021-06-22 09:41] LABS: Albumin 2.2 g/dL (3.5-5.0); Albumin/Globulin Ratio 0.8; Bilirubin, Conjugated 0.1 mg/dL (0.0-0.3); Bilirubin,Unconjugated 1.4 mg/dL (0.0-1.1); Globulin 2.6 g/dL; Total Bilirubin 2.8 mg/dL (0.2-1.3); Total Protein 4.8 g/dL (6.3-8.2)
[2021-06-22] MEDS: MAGNESIUM SULFATE-D5W PMX 1 GM in DEXTROSE/WATER 1 100ML.BAG IVPB SCH ×2 (10:46→13:01)
--- NOTE | 2021-06-22 14:30 | P.PN ---
Subjective Progress Note Date: 06/22/21 Principal diagnosis: Hyperbilirubinemia 65-year-old female who presented to the emergency department with complaints of generalized weakness and was noted to have hyponatremia. Patient also had elevation in her bilirubin and AST. She has a significant past history of alcohol abuse. She has been drinking 1-2 bottles of wine daily for greater than 20-30 years. Admits to last drinking on March 14 of this year. She denies any abdominal pain, nausea, or vomiting. No previous history of known liver disease. Total bilirubin 2.8, conjugated bilirubin 0.1 unconjugated bilirubin 1.4 AST 52 ALT 26 alk phos 129. Liver ultrasound was consistent with underlying hepatocellular disease versus hepatic steatosis. Likely we are dealing with underlying cirrhosis of the liver related to patient's alcoholism. Objective - Vital Signs Vital signs: Vital Signs Temp 98.0 F 06/22/21 07:00 Pulse 98 06/22/21 07:00 Resp 18 06/22/21 07:00 BP 107/73 06/22/21 07:00 Pulse Ox 96 06/22/21 07:00 Intake & Output 06/21/21 06/22/21 06/22/21 18:59 06:59 18:59 Output Total 850 1250 Balance -850 -1250 Output: Urine 850 1250 Other: Voiding Method Indwelling Catheter Indwelling Catheter # Bowel Movements 1 - Exam General appearance: The patient is alert, oriented, appears in no acute distress. HET: Head is normocephalic and atraumatic. Conjunctiva pink. Sclera anicteric. Neck: Supple without lymphadenopathy. Abdomen: Soft, nontender, nondistended with bowel sounds. No guarding or rigidity. Extremities: Normal skin color and turgor. No pedal edema Skin: No rashes, no jaundice Neurological: No focal deficits. Alert and oriented -3. - Labs CBC & Chem 7: 06/20/21 08:29 06/22/21 07:06 Labs: Abnormal Lab Results - Last 24 Hours (Table) 06/21/21 06/21/21 06/22/21 Range/Units 07:33 07:33 07:06 Sodium 125 L 129 L (137-145) mmol/L Chloride 96 L 95 L (98-107) mmol/L Carbon Dioxide 21 L (22-30) mmol/L Glucose 103 H (74-99) mg/dL Calcium 7.2 L 7.2 L (8.4-10.2) mg/dL Phosphorus 2.1 L 2.2 L (2.5-4.5) mg/dL Magnesium 1.5 L (1.6-2.3) mg/dL Total Bilirubin 2.2 H (0.2-1.3) mg/dL AST 66 H (14-36) U/L Alkaline Phosphatase 128 H (38-126) U/L Total Protein 4.8 L (6.3-8.2) g/dL Albumin 2.2 L (3.5-5.0) g/dL Microbiology - Last 24 Hours (Table) 06/21/21 Unknown Gram Stain - Preliminary Leg - Left Wound Culture - Preliminary 06/19/21 20:30 Urine Culture - Final Urine,Voided 06/19/21 10:14 Blood Culture - Preliminary Blood No Growth after 48 hours 06/21/21 Unknown Anaerobic Culture - Preliminary Leg - Left Assessment and Plan (1) Hyperbilirubinemia Narrative/Plan: 65-year-old with multiple comorbidities who presented to the emergency department with complaints of increased weakness, fatigue and difficulty caring for herself at home. She has a significant history of alcohol abuse over the last 40 years duration where she's been drinking 1-2 bottles of wine daily. She states her last drinking was over March. On admission she was noted to have elevated bilirubin and AST, consistent with alcoholic liver disease. Ultrasound of the liver shows coarse echotexture of liver, ascites in the right lobe of liver as well as hepatocellular disease versus hepatic steatosis. Patient does have a history of cholecystectomy many years ago, with which she is unsure why. However liver ultrasound does not show any CBD dilation. Patient denies any previous history of ascites no previous history of paracentesis. Current Visit: Yes Status: Acute Code(s): E80.6 - OTHER DISORDERS OF BILIRUBIN METABOLISM SNOMED Code(s): 30682627 (2) Ascites Current Visit: Yes Status: Acute Code(s): R18.8 - OTHER ASCITES SNOMED Code(s): 918211170 (3) Alcohol abuse Current Visit: Yes Status: Acute Code(s): F10.10 - ALCOHOL ABUSE, UNCOMPLICATED SNOMED Code(s): 27680261 (4) Hyponatremia Current Visit: Yes Status: Acute Code(s): E87.1 - HYPO-OSMOLALITY AND HYPONATREMIA SNOMED Code(s): 52457273 Plan: 1. Continue symptomatic and supportive care 2. Will begin patient on Aldactone 50 mg daily, apparently patient has not been tolerating furosemide due to hypotension 3. Continue alcohol abstinence 4. Daily CMP 5. Patient will require outpatient surveillance with gastroenterology Thank you for this consultation, we will continue to follow. Dr. John Burrows I agree with the dictator's note, documented as a scribe by Sheryl Linares.
--- NOTE | 2021-06-22 23:08 | P.PN ---
Subjective Progress Note Date: 06/22/21 Pt tolerating lasix, denies abdominal pain, nausea. She continues to complain of leg weakness and has not been able to ambulate with PT. Hyponatremia improving.. Objective - Vital Signs Vital signs: Vital Signs Temp 98.2 F 06/22/21 14:14 Pulse 94 06/22/21 14:14 Resp 12 06/22/21 19:42 BP 109/78 06/22/21 14:14 Pulse Ox 96 06/22/21 14:14 Intake & Output 06/22/21 06/22/21 06/23/21 06:59 18:59 06:59 Output Total 1250 720 Balance -1250 -720 Output: Urine 1250 720 Other: Voiding Method Indwelling Catheter Indwelling Catheter # Bowel Movements 1 - Exam General: elderly female in NAD CV: RRR, no murmur Lungs: normal effort, clear thoughout Neuro: alert and oriented x3, no focal deficit Skin: warm and dry - Labs CBC & Chem 7: 06/20/21 08:29 06/22/21 07:06 Labs: Abnormal Lab Results - Last 24 Hours (Table) 06/22/21 06/22/21 Range/Units 07:06 07:06 Sodium 129 L (137-145) mmol/L Chloride 95 L (98-107) mmol/L Glucose 103 H (74-99) mg/dL Calcium 7.2 L (8.4-10.2) mg/dL Phosphorus 2.2 L (2.5-4.5) mg/dL Magnesium 1.5 L (1.6-2.3) mg/dL Total Bilirubin 2.8 H (0.2-1.3) mg/dL Unconjugated Bilirubin 1.4 H (0.0-1.1) mg/dL AST 52 H (14-36) U/L Alkaline Phosphatase 129 H (38-126) U/L Total Protein 4.8 L (6.3-8.2) g/dL Albumin 2.2 L (3.5-5.0) g/dL Microbiology - Last 24 Hours (Table) 06/19/21 10:14 Blood Culture - Preliminary Blood No Growth after 72 hours Assessment and Plan Plan: Contnue with lasix and aldactone. Mobilize with therapy. Discharge planning in progress for subacute rehab
[2021-06-23] MEDS ORDERED: SODIUM PHOSPHATE 10 MMOL in SODIUM CHLORIDE 0.9% 100 ML IVPB ONE (03:30)
[2021-06-23] MEDS: LEVOTHYROXINE 50 MCG TAB PO SCH (06:14)
[2021-06-23] MEDS: AMPICILLIN-SULBACTAM 3 GM in SODIUM CHLORIDE 0.9% 100 ML IVPB SCH ×4 (06:15→23:16)
[2021-06-23 06:33] LABS: Basophils % (A) 0 %; Eosinophils # (A) 0.1 k/uL (0-0.7); Eosinophils % (A) 1 %; HCT 39.1 % (34.0-46.0); HGB 12.9 gm/dL (11.4-16.0); Lymphocytes # (A) 1.2 k/uL (1.0-4.8); Lymphocytes % (A) 8 %; MCH 31.5 pg (25.0-35.0); MCV 95.6 fL (80.0-100.0); Mean Platelet Volume 10.3; Monocytes # (A) 0.9 k/uL (0-1.0); Monocytes % (A) 6 %; Neutrophils # (A) 12.4 k/uL (1.3-7.7); Neutrophils % (A) 83 %; Platelet Count 178 k/uL (150-450); RBC 4.09 m/uL (3.80-5.40); RDW 14.9 % (11.5-15.5)
--- NOTE | 2021-06-23 06:39 | XR ---
EXAMINATION TYPE: XR chest 2V DATE OF EXAM: 06/23/2021 COMPARISON: 06/21/2021 HISTORY: Short of breath TECHNIQUE: 2 views FINDINGS: There is blunting of the costophrenic angles and more on the left side. There is no gross h eart failure. Heart size is normal. There are no hilar masses. Bony thorax is intact. IMPRESSION: Bilateral pleural effusions appear increased compared to old exam. No obvious heart failu re.
[2021-06-23] MEDS: MIDODRINE 5 MG TAB PO SCH ×3 (08:40→17:38)
[2021-06-23] MEDS: MAGNESIUM OXIDE 400 MG TAB PO SCH ×2 (08:41→20:38)
[2021-06-23] MEDS: PANTOPRAZOLE 40 MG TABLET PO SCH (08:41)
[2021-06-23] MEDS: SPIRONOLACTONE 25 MG TAB PO SCH (08:41)
[2021-06-23] MEDS: HEPARIN SODIUM,PORCINE/PF 5,000 UNIT/0.5 ML SYRINGE SQ SCH ×2 (08:41→20:38)
--- NOTE | 2021-06-23 10:51 | P.PN ---
Subjective Patient is seen in follow-up for hyponatremia. Sodium level 129 yesterday. Urine output improved with IV Lasix. GFR at baseline. No chest pain or shortness of breath. Blood pressure stable. Oral intake fair. No vomiting or diarrhea. Vital signs are stable. General: The patient appeared well nourished and normally developed. HEENT: Head exam is unremarkable. LUNGS: Breath sounds decreased. HEART: Rate and Rhythm are regular. ABDOMEN: Soft, no distention. EXTREMITITES: 1+ edema. No drainage. Objective - Vital Signs Vital signs: Vital Signs Temp 98.1 F 06/23/21 08:00 Pulse 100 06/23/21 08:00 Resp 15 06/23/21 08:00 BP 115/75 06/23/21 08:00 Pulse Ox 99 06/23/21 08:00 Intake & Output 06/22/21 06/23/21 06/23/21 18:59 06:59 18:59 Output Total 720 250 Balance -720 -250 Output: Urine 720 250 Other: Voiding Method Indwelling Catheter - Labs CBC & Chem 7: 06/23/21 05:29 06/22/21 07:06 Labs: Abnormal Lab Results - Last 24 Hours (Table) 06/23/21 Range/Units 05:29 WBC 15.0 H (3.8-10.6) k/uL Neutrophils # 12.4 H (1.3-7.7) k/uL Microbiology - Last 24 Hours (Table) 06/21/21 Unknown Gram Stain - Final Leg - Left Wound Culture - Final 06/19/21 10:14 Blood Culture - Preliminary Blood No Growth after 72 hours Assessment and Plan Plan: Assessment: 1. Hypovolemic hyponatremia from poor solute intake and excess fluid intake. Sodium level 121 on admission - 129 yesterday. TSH mildly elevated at 5.5. Urine osmolality 333. Urine sodium less than 20. Cortisol level 41. 2. Hypokalemia secondary to diuresis and hypomagnesemia. On maintenance supplementation. 3. Hypomagnesemia from poor intake and diuresis. Replaced. 4. Generalized weakness. 5. Lower extremity infection on antibiotics. 6. Acute kidney injury mostly prerenal secondary to hypovolemia. Creatinine 1.14 on admission - 0.68 today. 7. Hypophosphatemia from poor intake. Replaced. 8. Volume overload. Improving with diuresis. Plan: Added IV Lasix 40 mg twice daily. 1500 mL fluid restriction. Encouraged oral intake. Maintain midodrine. Continue to monitor renal function and urine output. Morning labs pending. Paracentesis pending. I will give her 25 g of albumin prior to paracentesis.
[2021-06-23 11:48] LABS: INR 1.3 (<1.2); Prothrombin Time 13.4 sec (9.0-12.0)
[2021-06-23] MEDS: ALBUMIN HUMAN 25% 50 ML in EMPTY BAG 1 BAG IVPB SCH ×4 (12:41→17:38)
[2021-06-23] MEDS: FUROSEMIDE 10 MG/ML 4 ML VIAL IV SCH ×2 (12:42→20:39)
--- NOTE | 2021-06-23 16:02 | P.PN ---
Subjective Progress Note Date: 06/23/21 Principal diagnosis: Hyperbilirubinemia 65-year-old female who presented to the emergency department with complaints of generalized weakness and was noted to have hyponatremia. Patient also had elevation in her bilirubin and AST. She has a significant past history of alcohol abuse. She has been drinking 1-2 bottles of wine daily for greater than 20-30 years. Admits to last drinking on March 14 of this year. She denies any abdominal pain, nausea, or vomiting. No previous history of known liver disease. Liver ultrasound was consistent with underlying hepatocellular dis ease versus hepatic steatosis. Likely we are dealing with underlying cirrhosis of the liver related to patient's alcoholism. Pending labs from today. Patient with increased abdominal distention. She denies any abdominal pain, nausea, or vomiting. Nephrology is following patient closely and starting patient on Lasix 40 mg twice a day Objective - Vital Signs Vital signs: Vital Signs Temp 98.1 F 06/23/21 08:00 Pulse 100 06/23/21 08:00 Resp 15 06/23/21 08:00 BP 115/75 06/23/21 08:00 Pulse Ox 99 06/23/21 08:00 Intake & Output 06/22/21 06/23/21 06/23/21 18:59 06:59 18:59 Output Total 720 250 Balance -720 -250 Output: Urine 720 250 Other: Voiding Method Indwelling Catheter Indwelling Catheter - Exam General appearance: The patient is alert, oriented, appears in no acute distress. HET: Head is normocephalic and atraumatic. Conjunctiva pink. Sclera anicteric. Neck: Supple without lymphadenopathy. Abdomen: Soft, nontender, nondistended with bowel sounds. No guarding or rigidity. Extremities: Normal skin color and turgor. No pedal edema Skin: No rashes, no jaundice Neurological: No focal deficits. Alert and oriented X 3. - Labs CBC & Chem 7: 06/23/21 05:29 06/22/21 07:06 Labs: Abnormal Lab Results - Last 24 Hours (Table) 06/23/21 06/23/21 Range/Units 05:29 11:19 WBC 15.0 H (3.8-10.6) k/uL Neutrophils # 12.4 H (1.3-7.7) k/uL PT 13.4 H (9.0-12.0) sec INR 1.3 H (<1.2) Microbiology - Last 24 Hours (Table) 06/21/21 Unknown Anaerobic Culture - Preliminary Leg - Left 06/21/21 Unknown Gram Stain - Final Leg - Left Wound Culture - Final 06/19/21 10:14 Blood Culture - Preliminary Blood No Growth after 72 hours Assessment and Plan (1) Hyperbilirubinemia Narrative/Plan: 65-year-old with multiple comorbidities who presented to the emergency department with complaints of increased weakness, fatigue and difficulty caring for herself at home. She has a significant history of alcohol abuse over the last 40 years duration where she's been drinking 1-2 bottles of wine daily. She states her last drinking was over March. On admission she was noted to have elevated bilirubin and AST, consistent with alcoholic liver disease. Ultrasound of the liver shows coarse echotexture of liver, ascites in the right lobe of liver as well as hepatocellular disease versus hepatic steatosis. Patient does have a history of cholecystectomy many years ago, with which she is unsure why. However liver ultrasound does not show any CBD dilation. Patient denies any previous history of ascites no previous history of paracentesis. Current Visit: Yes Status: Acute Code(s): E80.6 - OTHER DISORDERS OF BILIRUBIN METABOLISM SNOMED Code(s): 46145285 (2) Ascites Current Visit: Yes Status: Acute Code(s): R18.8 - OTHER ASCITES SNOMED Code(s): 585203465 (3) Alcohol abuse Current Visit: Yes Status: Acute Code(s): F10.10 - ALCOHOL ABUSE, UNCOMPLICATED SNOMED Code(s): 37083754 (4) Hyponatremia Current Visit: Yes Status: Acute Code(s): E87.1 - HYPO-OSMOLALITY AND HYPONATREMIA SNOMED Code(s): 83210106 Plan: 1. Continue symptomatic and supportive care 2. New Aldactone, Lasix as ordered per nephrology 3. Continue alcohol abstinence 4. Daily CMP 5. Ultrasound for possible paracentesis with fluid studies 6. Patient will require outpatient surveillance with gastroenterology Thank you for this consultation, we will continue to follow. Dr. John Burrows I agree with the dictator's note, documented as a scribe by Sheryl Linares.
--- NOTE | 2021-06-23 16:23 | US ---
Ultrasound-guided paracentesis. DATE OF EXAM: 06/23/2021 CLINICAL HISTORY: Ascites The procedure was discussed with the patient. The risks, complications, benefits, and alternatives we re discussed and any questions were answered. Informed consent was obtained. The patient was placed s upine on the ultrasound table and prepped and draped in the usual sterile fashion. All elements of maximal barrier technique were utilized. Under ultrasound guidance, access into the right lower quadrant was obtained, via the paracentesis catheter system and direct ultrasound guidanc e. Approximately 7.3 liters of straw-colored fluid was removed. The patient was stable throughout the pr ocedure and remained stable upon discharge from Department of Radiology. IMPRESSION: Successful paracentesis under ultrasound guidance.
[2021-06-23] MEDS: IPRATROPIUM-ALBUTEROL 3 ML NEB INHALATION PRN ×2 (16:29→23:33)
--- NOTE | 2021-06-23 17:23 | P.PN ---
Subjective Progress Note Date: 06/23/21 Denies nausea vomiting or abdominal pain ,abdomen distended. Continues on Lasix with Aldactone. Maintaining O2 sats in the high 90s on room air. Afebrile. Labs pending. Denies chest pain, palpitations or increasing shortness of breath. Objective - Vital Signs Vital signs: Vital Signs Temp 98.1 F 06/23/21 08:00 Pulse 93 06/23/21 16:45 Resp 16 06/23/21 15:10 BP 104/60 06/23/21 15:10 Pulse Ox 100 06/23/21 15:10 Intake & Output 06/22/21 06/23/21 06/23/21 18:59 06:59 18:59 Output Total 720 250 Balance -720 -250 Output: Urine 720 250 Other: Voiding Method Indwelling Catheter Indwelling Catheter - Exam - Exam General: elderly female in NAD CV: RRR, no murmur Lungs: normal effort, clear thoughout Neuro: alert and oriented x3, no focal deficit Skin: warm and dry - Labs CBC & Chem 7: 06/23/21 05:29 06/22/21 07:06 Labs: Abnormal Lab Results - Last 24 Hours (Table) 06/23/21 06/23/21 Range/Units 05:29 11:19 WBC 15.0 H (3.8-10.6) k/uL Neutrophils # 12.4 H (1.3-7.7) k/uL PT 13.4 H (9.0-12.0) sec INR 1.3 H (<1.2) Microbiology - Last 24 Hours (Table) 06/19/21 10:14 Blood Culture - Preliminary Blood No Growth after 96 hours 06/21/21 Unknown Anaerobic Culture - Preliminary Leg - Left 06/21/21 Unknown Gram Stain - Final Leg - Left Wound Culture - Final Assessment and Plan Assessment: Hyperbilirubinemia Ascites Hyponatremia Alcohol abuse Plan: Continue on current medication regime ,monitoring and symptomatic treatment. Continue diuresing as per nephrology, Lasix, Aldactone. Potential Paracentesis, ultrasound pending. Alcohol abstinence. Close monitoring of electrolytes with repeat labs ordered for a.m. increase activity as tolerated. Discharge planning in progress for [facility], pending clearance from GI. The impression and plan of care has been dictated as directed. : I performed a history and examination of this patient, discussed the same with the dictator. I agree with the dictator's note ,documented as a scribe. Any additional findings or plans will be noted.
[2021-06-23 17:33] LABS: Appearance,BF Hazy; Color,BF Yellow; Nucleated Cells, Body Fluid 99 /uL; RBC, Body Fluid 11 /uL
[2021-06-23 17:35] LABS: Mononuclear WBC,Body Fluid 90 %; Polynuclear WBC,Body Fluid 10 %; Total Cells Counted,Body Fluid 100
[2021-06-23] MEDS: MORPHINE SULFATE 4 MG/ML SYRINGE IV PRN (17:43)
[2021-06-23] MEDS: BENZONATATE 100 MG CAP PO PRN ×2 (18:06→23:22)
[2021-06-23 19:43] LABS: African American GFR (CKD) 103.4 (60.0-200.0); Albumin 2.3 g/dL (3.8-4.9); Albumin/Globulin Ratio 1.07 (1.60-3.17); Anion Gap 19.1 mmol/L (4.00-12.00); BUN/Creat Ratio 13.91 Ratio (12.00-20.00); Blood Urea Nitrogen 9.8 mg/dL (9.0-27.0); Calcium 7.4 mg/dL (8.7-10.3); Carbon Dioxide 18.8 mmol/L (21.6-31.8); Globulin 2.1 g/dL (1.6-3.3); Non-African American GFR(CKD) 89.2 (60.0-200.0); Potassium 3.6 mmol/L (3.5-5.5); Total Bilirubin 2.3 mg/dL (0.30-1.20); Total Protein 4.4 g/dL (6.2-8.2)
[2021-06-23] MEDS: MAGNESIUM SULFATE-D5W PMX 1 GM in DEXTROSE/WATER 1 100ML.BAG IVPB SCH (20:38)
[2021-06-24] MEDS: MAGNESIUM SULFATE-D5W PMX 1 GM in DEXTROSE/WATER 1 100ML.BAG IVPB SCH (01:49)
[2021-06-24] MEDS: AMPICILLIN-SULBACTAM 3 GM in SODIUM CHLORIDE 0.9% 100 ML IVPB SCH ×3 (05:59→17:13)
[2021-06-24] MEDS: LEVOTHYROXINE 50 MCG TAB PO SCH (05:59)
[2021-06-24] MEDS: MIDODRINE 5 MG TAB PO SCH ×3 (08:16→17:13)
[2021-06-24] MEDS: SPIRONOLACTONE 25 MG TAB PO SCH (08:16)
[2021-06-24] MEDS: HEPARIN SODIUM,PORCINE/PF 5,000 UNIT/0.5 ML SYRINGE SQ SCH ×2 (08:16→21:51)
[2021-06-24] MEDS: FUROSEMIDE 10 MG/ML 4 ML VIAL IV SCH ×2 (08:16→21:51)
[2021-06-24] MEDS: PANTOPRAZOLE 40 MG TABLET PO SCH (08:17)
[2021-06-24] MEDS: MAGNESIUM OXIDE 400 MG TAB PO SCH ×2 (08:17→21:50)
[2021-06-24] MEDS: BENZONATATE 100 MG CAP PO PRN (08:17)
[2021-06-24 09:41] LABS: Total Protein, Body Fluid 1020 mg/dL
[2021-06-24 10:15] LABS: African American GFR (CKD) >90 (>60 ml/min/1.73 sqM); Anion Gap 9 mmol/L; Blood Urea Nitrogen 11 mg/dL (7-17); Calcium 7.6 mg/dL (8.4-10.2); Carbon Dioxide 28 mmol/L (22-30); Chloride 92 mmol/L (98-107); Glucose 153 mg/dL (74-99); Magnesium 2.1 mg/dL (1.6-2.3); Non-African American GFR(CKD) >90 (>60 ml/min/1.73 sqM); Phosphorus 1.8 mg/dL (2.5-4.5); Potassium 2.8 mmol/L (3.5-5.1); Sodium 129 mmol/L (137-145)
--- NOTE | 2021-06-24 10:16 | P.PN ---
Subjective Patient is seen in follow-up for hyponatremia. Sodium level 133 yesterday. Urine output improved with IV Lasix. GFR at baseline. No chest pain or shortness of breath. Blood pressure stable. Oral intake fair. No vomiting or diarrhea. Vital signs are stable. General: The patient appeared well nourished and normally developed. HEENT: Head exam is unremarkable. LUNGS: Breath sounds decreased. HEART: Rate and Rhythm are regular. ABDOMEN: Soft, no distention. EXTREMITITES: 1+ edema. No drainage. Objective - Vital Signs Vital signs: Vital Signs Temp 98.5 F 06/24/21 08:00 Pulse 90 06/24/21 08:00 Resp 18 06/24/21 08:00 BP 92/58 06/24/21 08:00 Pulse Ox 94 L 06/24/21 09:45 Intake & Output 06/23/21 06/24/21 06/24/21 18:59 06:59 18:59 Intake Total 1100 600 Output Total 700 Balance 400 600 Intake: Intake, IV Titration 400 400 Amount Albumin Human 25% 50 ml 100 In Empty Bag 1 bag @ 50 mls/hr IVPB Q1H [facility] Rx#: [id number] Albumin Human 25% 50 ml 100 In Empty Bag 1 bag @ 50 mls/hr IVPB Q1H [facility] Rx#: [id number] Ampicillin-Sulbactam 3 gm 200 200 In Sodium Chloride 0.9% 100 ml @ 200 mls/hr IVPB Q6HR [facility] Rx#:[id number] Magnesium Sulfate-D5w Pmx 200 1 gm In Dextrose/Water 1 100ml.bag @ 100 mls/hr IVPB Q1H JENN[facility] Rx#: [id number] Oral 700 200 Output: Urine 700 Other: Voiding Method Indwelling Catheter Indwelling Catheter # Bowel Movements 2 - Labs CBC & Chem 7: 06/23/21 05:29 06/23/21 05:29 Labs: Abnormal Lab Results - Last 24 Hours (Table) 06/23/21 06/23/21 Range/Units 05:29 11:19 PT 13.4 H (9.0-12.0) sec INR 1.3 H (<1.2) Sodium 133 L (135-145) mmol/L Chloride 95 L (96-109) mmol/L Carbon Dioxide 18.8 L (21.6-31.8) mmol/L Anion Gap 19.10 H (4.00-12.00) mmol/L Calcium 7.4 L (8.7-10.3) mg/dL Total Bilirubin 2.30 H (0.30-1.20) mg/dL AST 44 H (13-35) U/L Total Protein 4.4 L (6.2-8.2) g/dL Albumin 2.3 L (3.8-4.9) g/dL Albumin/Globulin Ratio 1.07 L (1.60-3.17) g/dL Microbiology - Last 24 Hours (Table) 06/19/21 10:14 Blood Culture - Preliminary Blood No Growth after 96 hours 06/21/21 Unknown Anaerobic Culture - Preliminary Leg - Left 06/21/21 Unknown Gram Stain - Final Leg - Left Wound Culture - Final Assessment and Plan Plan: Assessment: 1. Hypovolemic hyponatremia from poor solute intake and excess fluid intake. Sodium level 121 on admission - 133 yesterday. TSH mildly elevated at 5.5. U rine osmolality 333. Urine sodium less than 20. Cortisol level 41. 2. Hypokalemia secondary to diuresis and hypomagnesemia. On maintenance supplementation. 3. Hypomagnesemia from poor intake and diuresis. Replaced. Improved. 4. Generalized weakness. 5. Lower extremity infection on antibiotics. 6. Acute kidney injury mostly prerenal secondary to cardiorenal syndrome/infection. Resolved. 7. Hypophosphatemia from poor intake. Replaced. 8. Volume overload. Improving with diuresis. Status post paracentesis on June 23 with 7 L drained. Plan: Maintain IV Lasix. 1500 mL fluid restriction. Encouraged oral intake. Maintain midodrine. Continue to monitor renal function and urine output. Morning labs pending.
[2021-06-24] MEDS ORDERED: Potassium Replacement Protocol 1 EACH MISC MISCELLANE PRN (10:38)
[2021-06-24 10:55] LABS: Albumin, Fluid Source Peritoneal Fluid
[2021-06-24] MEDS: POTASSIUM CHLORIDE ER 20 MEQ TAB.ER PO SCH ×3 (12:01→14:30)
--- NOTE | 2021-06-24 14:28 | P.PN ---
Subjective Progress Note Date: 06/24/21 Denies nausea vomiting or abdominal pain ,abdomen distended. Continues on Lasix with Aldactone. Maintaining O2 sats in the high 90s on room air. Afebrile. Labs pending. Denies chest pain, palpitations or increasing shortness of breath. Status post paracentesis with 7.3 L removed. Tolerated procedure well. Cultures pending. Sodium 129, potassium 2.8, magnesium 2.1. Renal function stable. Afebrile, T-max 99.5. Denies chest pain, palpitations or shortness of breath. Denies lightheadedness, dizziness or focal deficits. Objective - Vital Signs Vital signs: Vital Signs Temp 98.1 F 06/24/21 14:19 Pulse 95 06/24/21 14:19 Resp 18 06/24/21 14:19 BP 100/69 06/24/21 14:19 Pulse Ox 98 06/24/21 14:19 Intake & Output 06/23/21 06/24/21 06/24/21 18:59 06:59 18:59 Intake Total 1100 600 Output Total 700 Balance 400 600 Intake: Intake, IV Titration 400 400 Amount Albumin Human 25% 50 ml 100 In Empty Bag 1 bag @ 50 mls/hr IVPB Q1H [facility] Rx#: [id number] Albumin Human 25% 50 ml 100 In Empty Bag 1 bag @ 50 mls/hr IVPB Q1H [facility] Rx#: [id number] Ampicillin-Sulbactam 3 gm 200 200 In Sodium Chloride 0.9% 100 ml @ 200 mls/hr IVPB Q6HR [facility] Rx#:[id number] Magnesium Sulfate-D5w Pmx 200 1 gm In Dextrose/Water 1 100ml.bag @ 100 mls/hr IVPB Q1H [facility]ENN[facility] Rx#: [id number] Oral 700 200 Output: Urine 700 Other: Voiding Method Indwelling Catheter Indwelling Catheter Indwelling Catheter # Bowel Movements 2 - Exam - Exam General: elderly female in NAD CV: RRR, no murmur Lungs: normal effort, clear thoughout Neuro: alert and oriented x3, no focal deficit Skin: warm and dry - Labs CBC & Chem 7: 06/23/21 05:29 06/24/21 09:11 Labs: Abnormal Lab Results - Last 24 Hours (Table) 06/23/21 06/24/21 Range/Units 05:29 09:11 Sodium 133 L 129 L (135-145) mmol/L Potassium 2.8 L (3.5-5.1) mmol/L Chloride 95 L 92 L (96-109) mmol/L Carbon Dioxide 18.8 L (21.6-31.8) mmol/L Anion Gap 19.10 H (4.00-12.00) mmol/L Glucose 153 H (74-99) mg/dL Calcium 7.4 L 7.6 L (8.7-10.3) mg/dL Phosphorus 1.8 L (2.5-4.5) mg/dL Total Bilirubin 2.30 H (0.30-1.20) mg/dL AST 44 H (13-35) U/L Total Protein 4.4 L (6.2-8.2) g/dL Albumin 2.3 L (3.8-4.9) g/dL Albumin/Globulin Ratio 1.07 L (1.60-3.17) g/dL Microbiology - Last 24 Hours (Table) 06/19/21 10:14 Blood Culture - Preliminary Blood No Growth after 120 hours 06/21/21 Unknown Anaerobic Culture - Preliminary Leg - Left 06/21/21 Unknown Gram Stain - Final Leg - Left Wound Culture - Final Assessment and Plan Assessment: Hyperbilirubinemia Ascites, status post recent thoracentesis of 7.3 L drained Hyponatremia Alcohol abuse Plan: Continue on current medication regime ,monitoring and symptomatic treatment. Lasix, Aldactone. Alcohol abstinence. Close monitoring of electrolytes with repeat labs ordered for a.m. increase activity as tolerated. Discharge planning in progress for [facility] tomorrow, pending clearance from GI. The impression and plan of care has been dictated as directed. : I performed a history and examination of this patient, discussed the same with the dictator. I agree with the dictator's note ,documented as a scribe. Any additional findings or plans will be noted.
--- NOTE | 2021-06-24 17:40 | P.PN ---
Subjective Progress Note Date: 06/24/21 Principal diagnosis: Hyperbilirubinemia 65-year-old female who presented to the emergency department with complaints of generalized weakness and was noted to have hyponatremia. Patient also had elevation in her bilirubin and AST. She has a significant past history of alcohol abuse. She has been drinking 1-2 bottles of wine daily for greater than 20-30 years. Admits to last drinking on March 14 of this year. She denies any abdominal pain, nausea, or vomiting. No previous history of known liver disease. Liver ultrasound was consistent with underlying hepatocellular dis ease versus hepatic steatosis. Likely we are dealing with underlying cirrhosis of the liver related to patient's alcoholism. Pending labs from today. Patient with increased abdominal distention. She denies any abdominal pain, nausea, or vomiting. Nephrology is following patient closely and started patient on Lasix 40 mg twice a day. Patient underwent paracentesis yesterday with 7.3 L of fluid removed. She did receive albumin post paracentesis. States she is feeling much better today. Plan is for possible discharge today or tomorrow. Objective - Vital Signs Vital signs: Vital Signs Temp 98.5 F 06/24/21 08:00 Pulse 90 06/24/21 08:00 Resp 18 06/24/21 08:00 BP 92/58 06/24/21 08:00 Pulse Ox 94 L 06/24/21 09:45 Intake & Output 06/23/21 06/24/21 06/24/21 18:59 06:59 18:59 Intake Total 1100 600 Output Total 700 Balance 400 600 Intake: Intake, IV Titration 400 400 Amount Albumin Human 25% 50 ml 100 In Empty Bag 1 bag @ 50 mls/hr IVPB Q1H [facility] Rx#: [id number] Albumin Human 25% 50 ml 100 In Empty Bag 1 bag @ 50 mls/hr IVPB Q1H [facility]ENN[facility] Rx#: [id number] Ampicillin-Sulbactam 3 gm 200 200 In Sodium Chloride 0.9% 100 ml @ 200 mls/hr IVPB Q6HR JENNIEFR Rx#:[id number] Magnesium Sulfate-D5w Pmx 200 1 gm In Dextrose/Water 1 100ml.bag @ 100 mls/hr IVPB Q1H JENN[facility]ER Rx#: [id number] Oral 700 200 Output: Urine 700 Other: Voiding Method Indwelling Catheter Indwelling Catheter # Bowel Movements 2 - Exam General appearance: The patient is alert, oriented, appears in no acute distress. HET: Head is normocephalic and atraumatic. Conjunctiva pink. Sclera anicteric. Neck: Supple without lymphadenopathy. Abdomen: Soft, nontender, nondistended with bowel sounds. No guarding or rigidity. Extremities: Normal skin color and turgor. No pedal edema Skin: No rashes, no jaundice Neurological: No focal deficits. Alert and oriented X 3. - Labs CBC & Chem 7: 06/23/21 05:29 06/24/21 16:09 Labs: Abnormal Lab Results - Last 24 Hours (Table) 06/23/21 06/23/21 Range/Units 05:29 11:19 PT 13.4 H (9.0-12.0) sec INR 1.3 H (<1.2) Sodium 133 L (135-145) mmol/L Chloride 95 L (96-109) mmol/L Carbon Dioxide 18.8 L (21.6-31.8) mmol/L Anion Gap 19.10 H (4.00-12.00) mmol/L Calcium 7.4 L (8.7-10.3) mg/dL Total Bilirubin 2.30 H (0.30-1.20) mg/dL AST 44 H (13-35) U/L Total Protein 4.4 L (6.2-8.2) g/dL Albumin 2.3 L (3.8-4.9) g/dL Albumin/Globulin Ratio 1.07 L (1.60-3.17) g/dL Microbiology - Last 24 Hours (Table) 06/19/21 10:14 Blood Culture - Preliminary Blood No Growth after 96 hours 06/21/21 Unknown Anaerobic Culture - Preliminary Leg - Left 06/21/21 Unknown Gram Stain - Final Leg - Left Wound Culture - Final Assessment and Plan (1) Hyperbilirubinemia Narrative/Plan: 65-year-old with multiple comorbidities who presented to the emergency department with complaints of increased weakness, fatigue and difficulty caring for herself at home. She has a significant history of alcohol abuse over the last 40 years duration where she's been drinking 1-2 bottles of wine daily. She states her last drinking was over March. On admission she was noted to have elevated bilirubin and AST, consistent with alcoholic liver disease. Ultrasound of the liver shows coarse echotexture of liver, ascites in the right lobe of liver as well as hepatocellular disease versus hepatic steatosis. Patient does have a history of cholecystectomy many years ago, with which she is unsure why. However liver ultrasound does not show any CBD dilation. Patient denies any previous history of ascites no previous history of paracentesis. Current Visit: Yes Status: Acute Code(s): E80.6 - OTHER DISORDERS OF BILIRUBIN METABOLISM SNOMED Code(s): 05036943 (2) Ascites Narrative/Plan: Patient is status post paracentesis of 7.3 L of fluid removed. Fluid studies pending. We'll continue patient on Aldactone 50 mg daily and Lasix 40 mg twice a day if supported by nephrology. Current Visit: Yes Status: Acute Code(s): R18.8 - OTHER ASCITES SNOMED Code(s): 512242810 (3) Alcohol abuse Current Visit: Yes Status: Acute Code(s): F10.10 - ALCOHOL ABUSE, UNCOMPLICATED SNOMED Code(s): 50301506 (4) Hyponatremia Current Visit: Yes Status: Acute Code(s): E87.1 - HYPO-OSMOLALITY AND HYPONATREMIA SNOMED Code(s): 67002192 Plan: 1. Continue symptomatic and supportive care 2. Continue Aldactone 100 mg daily, Lasix per recommendations from nephrology 3. Continue alcohol abstinence 4. Patient will require outpatient surveillance with gastroenterology Thank you for this consultation, patient is cleared for discharge from gastroenterology Dr. John Burrows I agree with the dictator's note, documented as a scribe by Sheryl Linares.
[2021-06-24] MEDS ORDERED: ACETAMINOPHEN TAB 325 MG TAB PO PRN (19:44)
[2021-06-24] MEDS: IPRATROPIUM-ALBUTEROL 3 ML NEB INHALATION PRN (20:18)
[2021-06-25] MEDS: AMPICILLIN-SULBACTAM 3 GM in SODIUM CHLORIDE 0.9% 100 ML IVPB SCH ×5 (00:47→21:51)
[2021-06-25] MEDS: LEVOTHYROXINE 50 MCG TAB PO SCH (06:07)
[2021-06-25 07:48] LABS: African American GFR (CKD) >90 (>60 ml/min/1.73 sqM); Anion Gap 4 mmol/L; Blood Urea Nitrogen 11 mg/dL (7-17); Calcium 7.4 mg/dL (8.4-10.2); Carbon Dioxide 30 mmol/L (22-30); Chloride 94 mmol/L (98-107); Glucose 82 mg/dL (74-99); Magnesium 1.8 mg/dL (1.6-2.3); Non-African American GFR(CKD) >90 (>60 ml/min/1.73 sqM); Potassium 3.3 mmol/L (3.5-5.1); Sodium 128 mmol/L (137-145)
[2021-06-25] MEDS: HEPARIN SODIUM,PORCINE/PF 5,000 UNIT/0.5 ML SYRINGE SQ SCH ×2 (09:02→21:50)
[2021-06-25] MEDS: SPIRONOLACTONE 25 MG TAB PO SCH (09:03)
[2021-06-25] MEDS: MIDODRINE 5 MG TAB PO SCH ×3 (09:03→17:32)
[2021-06-25] MEDS: PANTOPRAZOLE 40 MG TABLET PO SCH (09:03)
[2021-06-25] MEDS: FUROSEMIDE 10 MG/ML 4 ML VIAL IV SCH (09:03)
[2021-06-25] MEDS: MAGNESIUM OXIDE 400 MG TAB PO SCH ×2 (09:03→21:50)
--- NOTE | 2021-06-25 09:56 | P.DS ---
Providers Date of admission: 06/19/21 05:40 Expected date of discharge: 06/25/21 Attending physician: Stanton Camara MD Consults: 06/19/21 08:45 Consult Physician Urgent Consulting Provider: Anne Velasquez Consult Reason/Comments: hyponatremia Do you want consulting provider notified?: Yes 06/19/21 11:35 Consult Physician Urgent Consulting Provider: Em Damon Consult Reason/Comments: PROGRESSIVE weakness in legs Do you want consulting provider notified?: Yes 06/21/21 09:22 Consult Physician Urgent Consulting Provider: Suad Burrows Consult Reason/Comments: jundice Do you want consulting provider notified?: Yes Primary care physician: Brianne Snyder [facility] Course: Final Diagnoses: Hyperbilirubinemia Ascites, status post recent thoracentesis of 7.3 L drained Suspected underlying Liver cirrhosis secondary to alcoholism Hyponatremia Alcohol abuse Hypokalemia Hospital course is a 65-year-old female admitted with alcohol abuse, hyponatremia, liver cirrhosis and multiple medical issues. Evaluated by nephrology and GI. Liver ultrasound was consistent with underlying hepatocellular disease versus hepatic steatosis. Status post paracentesis of 7.3 L drained. Maintained on Lasix and Aldactone. Significant clinical improvement. Patient will be discharged to [facility] subacute rehab today in a stable condition with guarded prognosis, pending pro-calcitonin and chest x-ray results. The impression and plan of care has been dictated as directed. : I performed a history and examination of this patient, discussed the same with the dictator. I agree with the dictator's note ,documented as a scribe. Any additional findings or plans will be noted. Patient Condition at Discharge: Stable Plan - Discharge Summary New Discharge Prescriptions: New Ipratropium-Albuterol Nebulize [Duoneb 0.5 mg-3 mg/3 ml Soln] 3 ml INHALATION Q4H PRN ml PRN Reason: Shortness Of Breath Or Wheezing Levothyroxine Sodium [Synthroid] 50 mcg PO DAILY@0630 tab Magnesium Oxide [Mag-Ox] 400 mg PO BID tab Spironolactone [Aldactone] 50 mg PO DAILY tab Pantoprazole [Protonix] 40 mg PO AC-BRKFST tab Continue Midodrine [ProAmatine] 5 mg PO AC-TID tab Vitamin B Complex 1 cap PO DAILY Multivitamin [Multivitamins Adult Gummies] 1 tab PO DAILY rOPINIRole HCL [Requip] 0.5 mg PO HS PRN PRN Reason: RESTLESS LEGS Mupirocin 2% Oint [Bactroban 2% Oint] 1 applic TOPICAL BID Changed Potassium Chloride ER [K-Dur 20] 40 meq PO DAILY #0 Furosemide [Lasix] 40 mg PO BID #0 Discontinued Nitrofurantoin Monohyd/M-Cryst [Macrobid] 100 mg PO BID Levothyroxine Sodium [Synthroid] 100 mcg PO DAILY Cephalexin [Keflex] 500 mg PO DIRECTED Discharge Medication List Multivitamin [Multivitamins Adult Gummies] 1 tab PO DAILY 03/15/21 [History] Midodrine [ProAmatine] 5 mg PO AC-TID tab 03/18/21 [Rx] Mupirocin 2% Oint [Bactroban 2% Oint] 1 applic TOPICAL BID 06/19/21 [History] Vitamin B Complex 1 cap PO DAILY 06/19/21 [History] rOPINIRole HCL [Requip] 0.5 mg PO HS PRN 06/19/21 [History] Ipratropium-Albuterol Nebulize [Duoneb 0.5 mg-3 mg/3 ml Soln] 3 ml INHALATION Q4H PRN ml 06/24/21 [Rx] Levothyroxine Sodium [Synthroid] 50 mcg PO DAILY@0630 tab 06/24/21 [Rx] Magnesium Oxide [Mag-Ox] 400 mg PO BID tab 06/24/21 [Rx] Pantoprazole [Protonix] 40 mg PO AC-BRKFST tab 06/24/21 [Rx] Spironolactone [Aldactone] 50 mg PO DAILY tab 06/24/21 [Rx] Furosemide [Lasix] 40 mg PO BID #0 06/25/21 [Rx] Potassium Chloride ER [K-Dur 20] 40 meq PO DAILY #0 06/25/21 [Rx] Follow up Appointment(s)/Referral(s): Suad Burrows MD [STAFF PHYSICIAN] - 1 Week Brianne Snyder DO [Primary Care Provider] - 1-2 days Activity/Diet/Wound Care/Special Instructions: [address] [facility] ECF CXR & Procalcitonin pending CBC, BMP in 3 days Discharge Disposition: TRANSFER TO SNF/ECF
--- NOTE | 2021-06-25 10:32 | XR ---
EXAMINATION TYPE: XR chest 2V DATE OF EXAM: 06/25/2021 COMPARISON: 06/23/2021 TECHNIQUE: PA and lateral views submitted. HISTORY: Cough and shortness of breath FINDINGS: Bilateral subsegmental consolidation and small effusion. No overt failure pneumothorax. Postsurgical change overlying the cervical spine. Diffuse osteopenia. Scattered air-fluid levels in the abdomen. IMPRESSION: 1. Bilateral lower lobe infiltrate and small effusion.
[2021-06-25] MEDS ORDERED: POTASSIUM CHLORIDE ER 20 MEQ TAB.ER PO STA (11:18)
[2021-06-25] MEDS ORDERED: Phosphorus Replacement Protoco 1 EACH MISC MISCELLANE PRN (11:19)
--- NOTE | 2021-06-25 11:19 | P.PN ---
Subjective Patient is seen in follow-up for hyponatremia. Sodium level stable at 128 today. Urine output improved with IV Lasix. GFR at baseline. No chest pain or shortness of breath. Blood pressure stable. Oral intake good. Edema improved. Vital signs are stable. General: The patient appeared well nourished and normally developed. HEENT: Head exam is unremarkable. LUNGS: Breath sounds decreased. HEART: Rate and Rhythm are regular. ABDOMEN: Soft, no distention. EXTREMITITES: 1+ edema. No drainage. Objective - Vital Signs Vital signs: Vital Signs Temp 97.5 F L 06/25/21 08:00 Pulse 92 06/25/21 08:00 Resp 15 06/25/21 08:00 BP 95/67 06/25/21 08:00 Pulse Ox 100 06/25/21 08:00 Intake & Output 06/24/21 06/25/21 06/25/21 18:59 06:59 18:59 Output Total 800 300 Balance -800 -300 Output: Urine 800 300 Other: Voiding Method Indwelling Catheter Indwelling Catheter - Labs CBC & Chem 7: 06/23/21 05:29 06/25/21 05:20 Labs: Abnormal Lab Results - Last 24 Hours (Table) 06/25/21 Range/Units 05:20 Sodium 128 L (137-145) mmol/L Potassium 3.3 L (3.5-5.1) mmol/L Chloride 94 L (98-107) mmol/L Calcium 7.4 L (8.4-10.2) mg/dL Microbiology - Last 24 Hours (Table) 06/19/21 10:14 Blood Culture - Preliminary Blood No Growth after 120 hours Assessment and Plan Plan: Assessment: 1. Hypovolemic hyponatremia from poor solute intake and excess fluid intake. Sodium level 121 on admission - 128 today. TSH mildly elevated at 5.5. Urine osmolality 333. Urine sodium less than 20. Cortisol level 41. 2. Hypokalemia secondary to diuresis and hypomagnesemia. 3. Hypomagnesemia from poor intake and diuresis. Replaced. Improved. 4. Generalized weakness. 5. Lower extremity infection on antibiotics. 6. Acute kidney injury mostly prerenal secondary to cardiorenal syndrome/infection. Resolved. 7. Hypophosphatemia from poor intake and diuresis. 8. Volume overload. Improving with diuresis. Status post paracentesis on June 23 with 7 L drained. Plan: Change Lasix to 40 mg orally twice daily. 1500 mL fluid restriction. Encouraged oral intake. Maintain midodrine. Continue to monitor renal function and urine output. Check phosphorus level today. Replace potassium and phosphorus.
[2021-06-25] MEDS: POTASSIUM PHOSPHATE 10 MMOL in SODIUM CHLORIDE 0.9% 250 ML IV SCH ×2 (13:01→13:02)
[2021-06-25] MEDS: FUROSEMIDE 40 MG TAB PO SCH (17:32)
[2021-06-25] MEDS: MORPHINE SULFATE 4 MG/ML SYRINGE IV PRN (21:50)
[2021-06-26] MEDS: AMPICILLIN-SULBACTAM 3 GM in SODIUM CHLORIDE 0.9% 100 ML IVPB SCH ×2 (06:03→12:01)
[2021-06-26] MEDS: LEVOTHYROXINE 50 MCG TAB PO SCH (06:04)
[2021-06-26 07:47] VITALS: BP 101/66; PULSE 96; RESP 18; TEMP 98.7
[2021-06-26] MEDS: PANTOPRAZOLE 40 MG TABLET PO SCH (08:56)
[2021-06-26] MEDS: SPIRONOLACTONE 25 MG TAB PO SCH (08:56)
[2021-06-26] MEDS: MAGNESIUM OXIDE 400 MG TAB PO SCH (08:56)
[2021-06-26] MEDS: MIDODRINE 5 MG TAB PO SCH ×2 (08:56→12:01)
[2021-06-26] MEDS: FUROSEMIDE 40 MG TAB PO SCH (08:56)
[2021-06-26] MEDS: HEPARIN SODIUM,PORCINE/PF 5,000 UNIT/0.5 ML SYRINGE SQ SCH (08:57)
[2021-06-26 09:13] VITALS: BMI 24.7
[2021-06-26 12:01] LABS: African American GFR (CKD) >90 (>60 ml/min/1.73 sqM); Anion Gap 5 mmol/L; Blood Urea Nitrogen 11 mg/dL (7-17); Calcium 7.4 mg/dL (8.4-10.2); Carbon Dioxide 27 mmol/L (22-30); Chloride 96 mmol/L (98-107); Glucose 84 mg/dL (74-99); Non-African American GFR(CKD) >90 (>60 ml/min/1.73 sqM); Sodium 128 mmol/L (137-145)
--- NOTE | 2021-06-26 12:48 | PN ---
PROGRESS NOTE Patient is seen for followup for hyponatremia. Her serum sodium has improved to about 128 from 121 on initial admission. Patient denies any significant complaints. On examination today, blood pressure 101/66, heart rate 96 per minute. She is afebrile. EXAMINATION OF THE HEART: S1 and S2. EXAMINATION OF LUNGS: Bilateral breath sounds are heard. Abdomen is soft, non-tender. Examination of lower extremities shows trace edema bilaterally. FIELD ARTILLERY CREWMEMBER EXAM: Grossly intact. Labs show sodium 128, potassium 4.0, chloride 96, BUN 11, serum creatinine 0.59. ASSESSMENT: 1. Hyponatremia associated with poor solute intake. Initial urine sodium was less than 20. Currently staying stable with sodium at 128 for the last couple of days. 2. Hypokalemia associated with diuresis and hypomagnesemia. 3. Acute kidney injury, mostly cardiorenal and secondary to underlying infection, currently improved. 4. Volume overload, currently being diuresed. 5. Hypomagnesemia. 6. Hypophosphatemia, status post replacement. 7. History of alcohol abuse. PLAN: Continue with Aldactone. Continue with Lasix. Monitor electrolytes as outpatient. Increase oral protein intake. MMODL / IJN: [id number] /
== END 2021-06-26 14:19 | DRG 193 ==
LOC: EC 23:41 → 4SSUR 06-19 05:40
PROVIDERS: ADMIT Family Medicine; ATTEND Family Medicine
PROC: 0W9G30Z Drainage of Peritoneal Cavity with Drainage Device, Percutaneous Approach (ICD-10-PCS; principal; 2021-06-23)
DX: J18.9 Pneumonia, unspecified organism (principal); E43 Unspecified severe protein-calorie malnutrition; N17.9 Acute kidney failure, unspecified; E87.1 Hypo-osmolality and hyponatremia; N39.0 Urinary tract infection, site not specified; L03.116 Cellulitis of left lower limb; J98.11 Atelectasis; Z20.822 Contact with and (suspected) exposure to COVID-19; K70.31 Alcoholic cirrhosis of liver with ascites; F10.10 Alcohol abuse, uncomplicated; E83.42 Hypomagnesemia; T50.2X5A Adverse effect of carbonic-anhydrase inhibitors, benzothiadiazides and other diuretics, initial encounter; X58.XXXA Exposure to other specified factors, initial encounter; E86.0 Dehydration; E87.6 Hypokalemia; E86.1 Hypovolemia; R79.89 Other specified abnormal findings of blood chemistry; E87.70 Fluid overload, unspecified; I95.1 Orthostatic hypotension; E05.80 Other thyrotoxicosis without thyrotoxic crisis or storm; E83.39 Other disorders of phosphorus metabolism; E53.8 Deficiency of other specified B group vitamins; M79.7 Fibromyalgia; K21.9 Gastro-esophageal reflux disease without esophagitis; G25.81 Restless legs syndrome; R32 Unspecified urinary incontinence; K91.1 Postgastric surgery syndromes; M41.86 Other forms of scoliosis, lumbar region; M19.90 Unspecified osteoarthritis, unspecified site; S80.922A Unspecified superficial injury of left lower leg, initial encounter; M51.36 Other intervertebral disc degeneration, lumbar region; M46.96 Unspecified inflammatory spondylopathy, lumbar region; R20.0 Anesthesia of skin; M85.88 Other specified disorders of bone density and structure, other site; Z68.24 Body mass index [BMI] 24.0-24.9, adult; Z98.84 Bariatric surgery status; Z90.49 Acquired absence of other specified parts of digestive tract; Z90.710 Acquired absence of both cervix and uterus; Z88.8 Allergy status to other drugs, medicaments and biological substances; Z79.890 Hormone replacement therapy; Z79.899 Other long term (current) drug therapy; Z86.73 Personal history of transient ischemic attack (TIA), and cerebral infarction without residual deficits; Z87.891 Personal history of nicotine dependence; Z91.041 Radiographic dye allergy status; Z71.41 Alcohol abuse counseling and surveillance of alcoholic; Z98.1 Arthrodesis status
CPT/HCPCS: 36415; 49083; 71045; 71046; 72100; 76604; 76705; 80048; 80053; 80076; 81001; 82042; 82533; 82607; 82746; 83735; 83880; 83930; 83935; 83970; 84100; 84132; 84145; 84157; 84300; 84439; 84443; 84484; 85025; 85610; 85730; 87040; 87070; 87075; 87086; 87205; 87635; 88108; 88305; 89050; 93005; 94640; 94760; 96361; 96365; 96366; 96367; 96375; 99285

== ENCOUNTER → 2021-11-24 | Outpatient (CLI) | payer MEDICARE ==
--- NOTE | 2021-11-25 10:41 | MM ---
Reason for exam: screening (asymptomatic). Last mammogram was performed 2 years and 4 months ago. History: Patient is postmenopausal. Family history of breast cancer in mother at age 75. Benign excisional biopsy of the left breast, 1983. Took estrogen for 2 years. Took progesterone for 2 years. Physical Findings: A clinical breast exam by your physician is recommended on an annual basis and results should be correlated with mammographic findings. MG 3D Screening Mammo W/Cad Bilateral CC, MLO, and XCCL view(s) were taken. Prior study comparison: July 24, 2019, bilateral MG 3d diag mammo w/cad [place]. January 11, 2019, left breast MG 3d diag mammo w/cad [place]. The breast tissue is heterogeneously dense. This may lower the sensitivity of mammography. Finding #1: There is stable architectural distortion in the upper quadrant of the left breast consistent with known excisional changes. Finding #2: There are typically benign vascular calcifications in both breasts. There is no discrete abnormality. ASSESSMENT: Benign, BI-RAD 2 RECOMMENDATION: Routine screening mammogram of both breasts in 1 year.
== END | disposition home or self-care (01) ==
LOC: RADMAMWWP 13:27
PROVIDERS: ATTEND Family Medicine
DX: Z12.31 Encounter for screening mammogram for malignant neoplasm of breast (principal)
CPT/HCPCS: 77063; 77067

== ENCOUNTER → 2021-12-27 | Outpatient (CLI) | payer MEDICARE ==
[2021-12-27 17:03] LABS: African American GFR (CKD) 71.2 (60.0-200.0); Albumin 3.1 g/dL (3.8-4.9); Albumin/Globulin Ratio 1.14 (1.60-3.17); Anion Gap 10.6 mmol/L (10.00-18.00); BUN/Creat Ratio 15.88 Ratio (12.00-20.00); Blood Urea Nitrogen 15.1 mg/dL (9.0-27.0); Carbon Dioxide 29.7 mmol/L (20.0-27.5); Globulin 2.7 g/dL (1.6-3.3); Non-African American GFR(CKD) 61.5 (60.0-200.0); Potassium 3.9 mmol/L (3.5-5.5); Total Bilirubin 0.7 mg/dL (0.30-1.20); Total Protein 5.8 g/dL (6.2-8.2)
== END | disposition home or self-care (01) ==
LOC: LABWHC1 10:46
PROVIDERS: ATTEND Internal Medicine Gastroenterology
DX: E87.6 Hypokalemia (principal)
CPT/HCPCS: 36415; 80053

== ENCOUNTER 2021-12-29 07:28 | Inpatient (IN) | payer MEDICARE ==
[2021-12-29] MEDS ORDERED: HYDROmorphone 0.5 MG/0.5 ML SYRINGE IVP STA (07:31)
[2021-12-29] MEDS ORDERED: SODIUM CHLORIDE 0.9% 500 ML 500 ML IV STA (07:31)
[2021-12-29] MEDS ORDERED: ONDANSETRON 4 MG/2 ML VIAL IVP STA (07:31)
--- NOTE | 2021-12-29 07:37 | ED ---
General Adult HPI - General Stated complaint: abd pain Time Seen by Provider: 12/29/21 07:31 Source: patient, EMS, RN notes reviewed Mode of arrival: EMS Limitations: no limitations - History of Present Illness Initial comments: This a 66-year-old female presents emergency Department with chief complaint of abdominal pain, constipation, vomiting. Patient states that she recently saw Dr. Piedra told her to emergency from his symptoms do not improve. She's tried multiple laxatives at home which made her sick to her stomach. Patient states she is a large hernia in which they're concerned that maybe causing obstruction. Patient has no dysuria no hematuria. She has known liver disease states that she lately has some ascites. No fevers or chills no chest pain or shortness of breath. - Related Data Home Medications Medication Instructions Recorded Confirmed Multivitamin [Multivitamins Adult 1 tab PO DAILY 03/15/21 12/29/21 Gummies] Vitamin B Complex 1 cap PO DAILY@1700 06/19/21 12/29/21 rOPINIRole HCL [Requip] 0.5 mg PO HS PRN 06/19/21 12/29/21 Albuterol Sulfate [Ventolin HFA] 1 - 2 puff INHALATION RT-DAILY PRN 12/29/21 12/29/21 Folic Acid 0.4 mg PO BID@0900,1700 12/29/21 12/29/21 Furosemide [Lasix] 80 mg PO DAILY 12/29/21 12/29/21 Levothyroxine Sodium [Synthroid] 50 mcg PO AC-BRKFST 12/29/21 12/29/21 Magnesium Oxide [Mag-Ox] 250 mg PO BID@0900,1700 12/29/21 12/29/21 Midodrine [ProAmatine] 5 mg PO AC-TID@07,11,1630 12/29/21 12/29/21 Potassium Chloride ER [K-Dur 20] 10 meq PO TID 12/29/21 12/29/21 Sennosides [Senna] 8.6 mg PO BID 12/29/21 12/29/21 Spironolactone [Aldactone] 100 mg PO DAILY 12/29/21 12/29/21 Thiamine [Vitamin B-1] 100 mg PO DAILY@1700 04/20/22 04/20/22 Previous Rx's Medication Instructions Recorded Pantoprazole [Protonix] 40 mg PO AC-BRKFST tab 06/24/21 Allergies Allergy/AdvReac Type Severity Reaction Status Date / Time furosemide [From Lasix] AdvReac Causes BP Verified 12/29/21 09:18 to drop too quickly, still takes at home Gadolinium-Containing AdvReac Flushing Verified 12/29/21 09:18 Contrast Medi Review of Systems ROS Statement: Those systems with pertinent positive or pertinent negative responses have been documented in the HPI. ROS Other: All systems not noted in ROS Statement are negative. Past Medical History Past Medical History: Chest Pain / Angina, CVA/TIA, Fibromyalgia, GERD/Reflux, Osteoarthritis (OA) Additional Past Medical History / Comment(s): "DUMPING SYNDROME" URINARY INCONTINENCE, TIA X3, restless leg History of Any Multi-Drug Resistant Organisms: None Reported Past Surgical History: Bariatric Surgery, Cholecystectomy, Hysterectomy, Or thopedic Surgery Additional Past Surgical History / Comment(s): HX GASTRIC BYPASS, PAIN CLINIC PROCEDURE, c3-7 fusions Past Anesthesia/Blood Transfusion Reactions: No Reported Reaction Additional Past Anesthesia/Blood Transfusion Reaction / Comment(s): REQUIRE ABOVE AVERAGE LIDOCAINE DOSE. Past Psychological History: No Psychological Hx Reported Smoking Status: Former smoker Past Alcohol Use History: Occasional Past Drug Use History: None Reported - Past Family History Father Family Medical History: Diabetes Mellitus, Myocardial Infarction ([place]) Mother Family Medical History: Cancer, Myocardial Infarction ([place]) General Exam Limitations: no limitations General appearance: alert, in no apparent distress Head exam: Present: atraumatic, normocephalic, normal inspection Eye exam: Present: normal appearance, PERRL, EOMI. Absent: scleral icterus, conjunctival injection, periorbital swelling ENT exam: Present: normal exam, normal oropharynx, mucous membranes moist Neck exam: Present: normal inspection, full ROM. Absent: tenderness, meningismus, lymphadenopathy Respiratory exam: Present: normal lung sounds bilaterally. Absent: respiratory distress, wheezes, rales, rhonchi, stridor Cardiovascular Exam: Present: regular rate, normal rhythm, normal heart sounds. Absent: systolic murmur, diastolic murmur, rubs, gallop, clicks GI/Abdominal exam: Present: soft, tenderness, rigid, normal bowel sounds, hernia. Absent: distended, guarding, rebound Back exam: Absent: CVA tenderness (R), CVA tenderness (L) Neurological exam: Present: alert Skin exam: Present: warm, dry, intact, normal color. Absent: rash Course Vital Signs 12/29/21 07:29 Temperature 99.5 F Pulse Rate 93 Respiratory 18 Rate Blood Pressure 116/80 O2 Sat by Pulse 97 Oximetry Medical Decision Making - Medical Decision Making CT shows evidence of small bowel obstruction, concern for incarcerated hernia, early infarction lactic is negative. Patient states has had an presentation of vomiting. Patient case discussed with Dr. Dykes NG tube will be placed will be admitted with consult to medicine. - Lab Data Result diagrams: 12/29/21 07:39 12/29/21 07:39 Lab Results 12/29/21 12/29/21 12/29/21 Range/Units 07:39 07:39 07:39 WBC 17.7 H (3.8-10.6) k/uL RBC 4.16 (3.80-5.40) m/uL Hgb 12.6 (11.4-16.0) gm/dL Hct 39.2 (34.0-46.0) % MCV 94.0 (80.0-100.0) fL MCH 30.1 (25.0-35.0) pg MCHC 32.1 (31.0-37.0) g/dL RDW 14.1 (11.5-15.5) % Plt Count 309 (150-450) k/uL MPV 8.4 Neutrophils % 89 % Lymphocytes % 5 % Monocytes % 4 % Eosinophils % 2 % Basophils % 0 % Neutrophils # 15.8 H (1.3-7.7) k/uL Lymphocytes # 0.8 L (1.0-4.8) k/uL Monocytes # 0.6 (0-1.0) k/uL Eosinophils # 0.3 (0-0.7) k/uL Basophils # 0.1 (0-0.2) k/uL Sodium 132 L (137-145) mmol/L Potassium 3.4 L (3.5-5.1) mmol/L Chloride 95 L (98-107) mmol/L Carbon Dioxide 33 H (22-30) mmol/L Anion Gap 4 mmol/L BUN 18 H (7-17) mg/dL Creatinine 0.85 (0.52-1.04) mg/dL Est GFR (CKD-EPI)AfAm 82 (>60 ml/min/1.73 sqM) Est GFR (CKD-EPI)NonAf 71 (>60 ml/min/1.73 sqM) Glucose 88 (74-99) mg/dL Plasma Lactic Acid Malachi 1.2 (0.7-2.0) mmol/L Calcium 8.0 L (8.4-10.2) mg/dL Total Bilirubin 1.3 (0.2-1.3) mg/dL AST 46 H (14-36) U/L ALT 21 (4-34) U/L Alkaline Phosphatase 108 (38-126) U/L Total Protein 5.2 L (6.3-8.2) g/dL Albumin 2.5 L (3.5-5.0) g/dL Amylase 37 (30-110) U/L Lipase 47 (23-300) U/L Disposition Clinical Impression: Small bowel obstruction, Incarcerated hernia Disposition: ADMITTED IP TO THIS [facility] Condition: Fair Referrals: Stanton Camara MD [Primary Care Provider] - 1-2 days
[2021-12-29 08:01] LABS: Basophils # (A) 0.1 k/uL (0-0.2); Basophils % (A) 0 %; Eosinophils # (A) 0.3 k/uL (0-0.7); Eosinophils % (A) 2 %; HCT 39.2 % (34.0-46.0); HGB 12.6 gm/dL (11.4-16.0); Lymphocytes # (A) 0.8 k/uL (1.0-4.8); Lymphocytes % (A) 5 %; MCH 30.1 pg (25.0-35.0); MCHC 32.1 g/dL (31.0-37.0); Mean Platelet Volume 8.4; Monocytes # (A) 0.6 k/uL (0-1.0); Monocytes % (A) 4 %; Neutrophils # (A) 15.8 k/uL (1.3-7.7); Neutrophils % (A) 89 %; Platelet Count 309 k/uL (150-450); RBC 4.16 m/uL (3.80-5.40); RDW 14.1 % (11.5-15.5); WBC 17.7 k/uL (3.8-10.6)
[2021-12-29 08:34] LABS: Albumin 2.5 g/dL (3.5-5.0); Potassium 3.4 mmol/L (3.5-5.1); Total Bilirubin 1.3 mg/dL (0.2-1.3); Total Protein 5.2 g/dL (6.3-8.2)
--- NOTE | 2021-12-29 09:32 | CT ---
EXAMINATION TYPE: CT abdomen pelvis w con DATE OF EXAM: 12/29/2021 COMPARISON: No previous CT scan is available for comparison. HISTORY: Abdominal pain, constipation, nausea and vomiting. CT DLP: 1215.4 mGycm Automated exposure control for dose reduction was used. TECHNIQUE: Helical acquisition of images was performed from the lung bases through the pelvis. CONTRAST: Performed without Oral Contrast and with IV Contrast, patient injected with 100 mL of Isovue 300. FINDINGS: LUNG BASES: Bilateral pleural effusions, larger on the left side with bilateral basal atelectasis/con solidation, please correlate clinically to rule out associated infection. LIVER/GB: Suspected cirrhotic hepatic changes with prominent portal vein. No definite hepatic focal l esion. Previous cholecystectomy. PANCREAS: Atrophic. SPLEEN: No significant abnormality is seen. ADRENALS: No significant abnormality is seen. KIDNEYS: No significant abnormality is seen. FREE AIR: No free air is visualized. RETROPERITONEAL ADENOPATHY: None visualized REPRODUCTIVE ORGANS: Previous hysterectomy. No gross adnexal mass. URINARY BLADDER: Nondistended. PELVIC ADENOPATHY: None visualized. OSSEOUS STRUCTURES: Diffuse osteopenia. Degenerative changes of the lumbar spine. BOWEL: Surgical sutures are seen at the gastroesophageal junction with suspected esophageal varices, esophagojejunostomy and hiatal hernia. Duodenal diverticulum. Sizable anterior abdominal wall midlin e hernia containing fluid and small bowel which appears of reduced enhancement suggestive of bowel is chemia. There is evidence of high-grade bowel obstruction seen proximal to the hernia with complete c ollapse of the small bowel loop distal to the hernia, possibly incarcerated. The small bowel dilatati on measures up to 5.3 cm. Diffuse edema of the small and large bowel likely due to portal hypertensio n however associated infection or colitis cannot be excluded. Scattered colonic diverticulosis. No gr oss signs of acute appendicitis. OTHER: Arterial atherosclerotic calcifications. Large abdominal and pelvic ascites. Suspected collate ral portosystemic channels. Left inguinal hernia containing fluid. Left obturator hernia containing f luid. IMPRESSION: 1. Findings are consistent with acute mechanical high-grade small bowel obstruction with transition s een in the anterior abdominal wall midline hernia (possibly umbilical hernia) with suspected bowel is chemia/early infarction and incarceration within the hernia as described above. No sharri pneumatosis, free peritoneal air or portal venous gas. Recommend urgent surgical consultation. 2. Suspected hepatic cirrhosis with signs of portal hypertension and large abdominal and pelvic ascit es as described above. Other findings as described above.
[2021-12-29] MEDS ORDERED: ONDANSETRON 4 MG/2 ML VIAL IVP PRN ×3 (09:45→18:21)
[2021-12-29] MEDS ORDERED: NALOXONE 0.4 MG/ML 1 ML VIAL IV PRN ×2 (09:45→18:21)
--- NOTE | 2021-12-29 12:06 | XR ---
EXAMINATION TYPE: XR chest 1V DATE OF EXAM: 12/29/2021 COMPARISON: Chest x-ray 06/25/2021 HISTORY: NG tube placement TECHNIQUE: Single frontal view of the lower chest and upper abdomen is obtained. FINDINGS: NG tube is present and distal tip is seen towards the midline. Tube may overlie the stomac h, patient is likely rotated. Basilar atelectasis and associated effusion suspected on the left. IMPRESSION: NG tube is thought likely to be present within the stomach.
[2021-12-29] MEDS: SODIUM CHLORIDE 0.9% 1,000 ML IV SCH ×2 (12:19→23:05)
[2021-12-29] MEDS: POTASSIUM CHLORIDE 10 MEQ in WATER FOR INJECTION 1 100ML.BAG IVPB SCH ×2 (13:38→14:57)
--- NOTE | 2021-12-29 14:03 | P.GSHP ---
History of Present Illness H&P Date: 12/29/21 CHIEF COMPLAINT: Abdominal pain HISTORY OF PRESENT ILLNESS: This is a 66-year-old female with a known history of incisional hernia. Patient reports that she had increase in abdominal pain after eating dinner on Monday, 2 days ago. She had issues with constipation. And reported that her last bowel movement was Monday morning. Since then she has been having nausea and vomiting. She reports that the hernia on the right side of her abdomen at the incision site has become bigger and harder. She is having increased abdominal pain. She had a computed tomography scan of abdomen and pelvis consistent with acute mechanical high-grade small bowel obstruction with transition point at the anterior abdominal wall midline hernia with suspected bowel ischemia/early infarction and incarceration within the hernia. No sharri pneumatosis, free peritoneal air or portal venal gas. Patient does have a known history of liver cirrhosis and history of alcohol abuse. Patient follows with Dr. Burrows. Patient's surgical history includes gastric bypass, cholecystectomy and hysterectomy. PAST MEDICAL HISTORY: Liver cirrhosis, CVA, viral myalgia, osteoarthritis, history of alcohol abuse PAST SURGICAL HISTORY: Gastric bypass, hysterectomy, cholecystectomy MEDICATIONS: See list. ALLERGIES: See list. SOCIAL HISTORY: No illicit drug use. REVIEW OF SYSTEMS: CONSTITUTIONAL: Denies fever or chills. HEENT: Denies blurred vision, vision changes, or eye pain. Denies hemoptysis CARDIOVASCULAR: Denies chest pain or pressure. RESPIRATORY: No shortness of breath. GASTROINTESTINAL: See HPI for pertinent findings HEMATOLOGIC: Denies bleeding disorders. GENITOURINARY: Denies any blood in urine or increased urinary frequency. SKIN: Denies pruitis. Denies rash. PHYSICAL EXAM: VITAL SIGNS: Reviewed GENERAL: Well-developed in no acute distress. HEENT: No sclera icterus. Extraocular movements grossly intact. Moist buccal mucosa. Head is atraumatic, normocephalic. No nasal drainage. ABDOMEN: Abdomen distended with evidence of incarcerated hernia. Hernia is not reducible. It is hard and firm and tender with palpation. Patient has NG tube in place. NEUROLOGIC: Alert and oriented. Cranial nerves II through XII grossly intact. LABORATORY DATA: WBC 17.7 hemoglobin 12.6 platelets 309 Sodium is 132 potassium 3.4 creatinine 0.85 peptic acid 1.2 total bili 1.3 AST 46 ALT 21 alk phos 108 Lipase 47 IMAGING: computed tomography scan of abdomen and pelvis consistent with acute mechanical high-grade small bowel obstruction with transition point at the anterior abdominal wall midline hernia with suspected bowel ischemia/early infarction and incarceration within the hernia. No sharri pneumatosis, free peritoneal air or portal venal gas. Suspected hepatic cirrhosis with signs of portal hypertension a large abdominal pelvic ascites. ASSESSMENT: 1. High-grade small bowel obstruction with incarcerated hernia 2. Hypokalemia 3. Prior abdominal surgeries PLAN: -Patient scheduled for surgical intervention today with Dr. wong -Keep patient nothing by mouth -Continue NG tube for decompression -Replace potassium -Continue IV fluids -Continue pain medication as needed Physician Med Care Manager note has been reviewed by physician. Signing provider agrees with the documented findings, assessment, and plan of care. 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 History of Any Multi-Drug Resistant Organisms: None Reported Past Surgical History: Bariatric Surgery, Cholecystectomy, Hysterectomy, Orthopedic Surgery, Tubal Ligation Additional Past Surgical History / Comment(s): HX GASTRIC BYPASS, PAIN CLINIC PROCEDURE, c3-7 fusions, colonoscopy. Past Anesthesia/Blood Transfusion Reactions: No Reported Reaction Additional Past Anesthesia/Blood Transfusion Reaction / Comment(s): REQUIRE ABOVE AVERAGE LIDOCAINE DOSE. Smoking Status: Former smoker - Past Family History Father Family Medical History: Diabetes Mellitus, Myocardial Infarction ([place]) Additional Family Medical History / Comment(s): Father is . Mother Family Medical History: Cancer, Myocardial Infarction ([place]) Additional Family Medical History / Comment(s): Breast cancer. Mother is living. Medications and Allergies Home Medications Medication Instructions Recorded Confirmed Type Multivitamin [Multivitamins Adult 1 tab PO DAILY 03/15/21 12/29/21 History Gummies] Vitamin B Complex 1 cap PO DAILY@1700 06/19/21 12/29/21 History rOPINIRole HCL [Requip] 0.5 mg PO HS PRN 06/19/21 12/29/21 History Pantoprazole [Protonix] 40 mg PO AC-BRKFST tab 06/24/21 12/29/21 Rx Albuterol Sulfate [Ventolin HFA] 1 - 2 puff INHALATION RT-DAILY PRN 12/29/21 12/29/21 History Folic Acid 0.4 mg PO BID@0900,1700 12/29/21 12/29/21 History Furosemide [Lasix] 80 mg PO DAILY 12/29/21 12/29/21 History Levothyroxine Sodium [Synthroid] 50 mcg PO AC-BRKFST 12/29/21 12/29/21 History Magnesium Oxide [Mag-Ox] 250 mg PO BID@0900,1700 12/29/21 12/29/21 History Midodrine [ProAmatine] 5 mg PO AC-TID@07,11,1630 12/29/21 12/29/21 History Potassium Chloride ER [K-Dur 20] 10 meq PO TID 12/29/21 12/29/21 History Sennosides [Senna] 8.6 mg PO BID 12/29/21 12/29/21 History Spironolactone [Aldactone] 100 mg PO DAILY 12/29/21 12/29/21 History Thiamine [Vitamin B-1] 100 mg PO DAILY@1700 12/29/21 12/29/21 History Allergies Allergy/AdvReac Type Severity Reaction Status Date / Time furosemide [From Lasix] AdvReac Causes BP Verified 12/29/21 09:18 to drop too quickly, still takes at home Gadolinium-Containing AdvReac Flushing Verified 12/29/21 09:18 Contrast Medi Surgical - Exam Vital Signs Temp Pulse Resp BP Pulse Ox 99.5 F 93 18 116/80 97 12/29/21 07:29 12/29/21 07:29 12/29/21 07:29 12/29/21 07:29 12/29/21 07:29 Results - Labs 12/29/21 07:39 12/29/21 07:39 Abnormal Lab Results - Last 24 Hours (Table) 12/29/21 12/29/21 Range/Units 07:39 07:39 WBC 17.7 H (3.8-10.6) k/uL Neutrophils # 15.8 H (1.3-7.7) k/uL Lymphocytes # 0.8 L (1.0-4.8) k/uL Sodium 132 L (137-145) mmol/L Potassium 3.4 L (3.5-5.1) mmol/L Chloride 95 L (98-107) mmol/L Carbon Dioxide 33 H (22-30) mmol/L BUN 18 H (7-17) mg/dL Calcium 8.0 L (8.4-10.2) mg/dL AST 46 H (14-36) U/L Total Protein 5.2 L (6.3-8.2) g/dL Albumin 2.5 L (3.5-5.0) g/dL Diabetes panel 12/29/21 Range/Units 07:39 Sodium 132 L (137-145) mmol/L Potassium 3.4 L (3.5-5.1) mmol/L Chloride 95 L (98-107) mmol/L Carbon Dioxide 33 H (22-30) mmol/L BUN 18 H (7-17) mg/dL Creatinine 0.85 (0.52-1.04) mg/dL Glucose 88 (74-99) mg/dL Calcium 8.0 L (8.4-10.2) mg/dL AST 46 H (14-36) U/L ALT 21 (4-34) U/L Alkaline Phosphatase 108 (38-126) U/L Total Protein 5.2 L (6.3-8.2) g/dL Albumin 2.5 L (3.5-5.0) g/dL Calcium panel 12/29/21 Range/Units 07:39 Calcium 8.0 L (8.4-10.2) mg/dL Albumin 2.5 L (3.5-5.0) g/dL Pituitary panel 12/29/21 Range/Units 07:39 Sodium 132 L (137-145) mmol/L Potassium 3.4 L (3.5-5.1) mmol/L Chloride 95 L (98-107) mmol/L Carbon Dioxide 33 H (22-30) mmol/L BUN 18 H (7-17) mg/dL Creatinine 0.85 (0.52-1.04) mg/dL Glucose 88 (74-99) mg/dL Calcium 8.0 L (8.4-10.2) mg/dL Adrenal panel 12/29/21 Range/Units 07:39 Sodium 132 L (137-145) mmol/L Potassium 3.4 L (3.5-5.1) mmol/L Chloride 95 L (98-107) mmol/L Carbon Dioxide 33 H (22-30) mmol/L BUN 18 H (7-17) mg/dL Creatinine 0.85 (0.52-1.04) mg/dL Glucose 88 (74-99) mg/dL Calcium 8.0 L (8.4-10.2) mg/dL Total Bilirubin 1.3 (0.2-1.3) mg/dL AST 46 H (14-36) U/L ALT 21 (4-34) U/L Alkaline Phosphatase 108 (38-126) U/L Total Protein 5.2 L (6.3-8.2) g/dL Albumin 2.5 L (3.5-5.0) g/dL
--- NOTE | 2021-12-29 14:14 | P.CONS ---
History of Present Illness - Reason for Consult Consult date: 12/29/21 Liver Cirrhosis Requesting physician: Pankaj Haro - Chief Complaint Abdominal pain - History of Present Illness This 66-year-old pleasant white female with past medical history including alcoholic cirrhosis of the liver, angina, CVA, fibromyalgia with surgical history including. Trichomoniasis surgery, cholecystectomy, hysterectomy who reported to the emergency department with complaints of abdominal pain, vomiting and constipation. The patient has a history of alcoholic cirrhosis and follows with Dr. Lizarraga, the patient is being followed by general surgery for incarcerated umbilical hernia and gastroenterology was asked to see the patient per patient's request. She has decompensated cirrhosis of the liver with ascites, due to history of alcohol abuse. She was actually seen in Dr. Burrows's office yesterday, noted to have umbilical hernia however patient states that had gotten harder throughout the night and day. Patient does have a history of ascites and was undergoing paracentesis every 2-3 weeks however diuretics spironolactone and Lasix had been recently changed and patient is now going for paracentesis every 4-6 weeks. States her last paracentesis she believes was November 25. She had a CT of the abdomen and pelvis on admission findings consis tent with acute mechanical high-grade small bowel obstruction with transition seen in anterior abdominal wall midline hernia possibly umbilical hernia with suspected bowel ischemia/early in infarction and incarceration within the hernia as described above. No sharri pneumatosis, free peritoneal air or portal venous gas. Suspect hepatic cirrhosis with signs of portal hypertension and large abdominal and pelvic ascites as described above. Patient states she had some abdominal pain, she has NG tube in place with approximately 75 mL brown output, no vomiting at this time. WBC 17.7 hemoglobin 12.6 hematocrit 39 platelet count 309,000 sodium 132 potassium 3.4 BUN 18 creatinine 0.85 total bilirubin 1.3 AST 46 ALT 21 alkaline phosphatase 108 amylase 37 lipase 47 Review of Systems REVIEW OF SYSTEMS: CARDIOPULMONARY: No chest pain or shortness of breath. Gastrointestinal: Abdominal pain, mostly umbilical around hernia. Vomiting. No hematemesis, coffee-ground emesis. No rectal bleeding, or melena. GENITOURINARY: No dysuria or hematuria. MUSCULOSKELETAL: Reports normal range of motion. SKIN: No rashes. No jaundice. ENDOCRINE: No chills, fevers. No excessive weight gain or loss. No polydipsia or polyuria. PSYCHIATRIC: Unremarkable. NEUROLOGY: No change in mental status. Denies dizziness, headache. ENT: Vision unremarkable. CONSTITUTIONAL: No recent weight loss. No fever, chills, night sweats. 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 History of Any Multi-Drug Resistant Organisms: None Reported Past Surgical History: Bariatric Surgery, Cholecystectomy, Hysterectomy, Orth opedic Surgery, Tubal Ligation Additional Past Surgical History / Comment(s): HX GASTRIC BYPASS, PAIN CLINIC PROCEDURE, c3-7 fusions, colonoscopy. Past Anesthesia/Blood Transfusion Reactions: No Reported Reaction Additional Past Anesthesia/Blood Transfusion Reaction / Comm: REQUIRE ABOVE AVERAGE LIDOCAINE DOSE. Smoking Status: Former smoker - Past Family History Father Family Medical History: Diabetes Mellitus, Myocardial Infarction ([place]) Additional Family Medical History / Comment(s): Father is . Mother Family Medical History: Cancer, Myocardial Infarction ([place]) Additional Family Medical History / Comment(s): Breast cancer. Mother is living. Medications and Allergies Home Medications Medication Instructions Recorded Confirmed Type Multivitamin [Multivitamins Adult 1 tab PO DAILY 03/15/21 12/29/21 History Gummies] Vitamin B Complex 1 cap PO DAILY@1700 06/19/21 12/29/21 History rOPINIRole HCL [Requip] 0.5 mg PO HS PRN 06/19/21 12/29/21 History Pantoprazole [Protonix] 40 mg PO AC-BRKFST tab 06/24/21 12/29/21 Rx Albuterol Sulfate [Ventolin HFA] 1 - 2 puff INHALATION RT-DAILY PRN 12/29/21 12/29/21 History Folic Acid 0.4 mg PO BID@0900,1700 12/29/21 12/29/21 History Furosemide [Lasix] 80 mg PO DAILY 12/29/21 12/29/21 History Levothyroxine Sodium [Synthroid] 50 mcg PO AC-BRKFST 12/29/21 12/29/21 History Magnesium Oxide [Mag-Ox] 250 mg PO BID@0900,1700 12/29/21 12/29/21 History Midodrine [ProAmatine] 5 mg PO AC-TID@07,11,1630 12/29/21 12/29/21 History Potassium Chloride ER [K-Dur 20] 10 meq PO TID 12/29/21 12/29/21 History Sennosides [Senna] 8.6 mg PO BID 12/29/21 12/29/21 History Spironolactone [Aldactone] 100 mg PO DAILY 12/29/21 12/29/21 History Thiamine [Vitamin B-1] 100 mg PO DAILY@1700 12/29/21 12/29/21 History Allergies Allergy/AdvReac Type Severity Reaction Status Date / Time furosemide [From Lasix] AdvReac Causes BP Verified 12/29/21 09:18 to drop too quickly, still takes at home Gadolinium-Containing AdvReac Flushing Verified 12/29/21 09:18 Contrast Medi Physical Exam Vitals: Vital Signs Temp Pulse Pulse Resp BP BP Pulse Ox 12/29/21 12:09 98.6 F 89 18 103/72 97 12/29/21 10:40 90 18 103/77 94 L 12/29/21 07:29 99.5 F 93 18 116/80 97 Intake and Output 12/28/21 12/29/21 12/29/21 22:59 06:59 14:59 Other: Weight 68.946 kg General appearance: The patient is alert, oriented, appears in no acute distress. HET: Head is normocephalic and atraumatic. Conjunctiva pink. Sclera anicteric. Neck: Supple without lymphadenopathy. Trachea midline. Heart: S1 S2. Regular rate and rhythm. Lungs: Clear to auscultation. Abdomen: Soft, tender, large umbilical hernia, nonreducible. No guarding or rigidity. Skin: No rashes. No jaundice. Extremities: Normal skin color and turgor. Bilateral pedal edema. Neurological: No focal deficits. Alert and oriented x3. Results CBC & Chem 7: 12/29/21 07:39 12/29/21 07:39 Labs: Abnormal Lab Results - Last 24 Hours (Table) 12/29/21 12/29/21 Range/Units 07:39 07:39 WBC 17.7 H (3.8-10.6) k/uL Neutrophils # 15.8 H (1.3-7.7) k/uL Lymphocytes # 0.8 L (1.0-4.8) k/uL Sodium 132 L (137-145) mmol/L Potassium 3.4 L (3.5-5.1) mmol/L Chloride 95 L (98-107) mmol/L Carbon Dioxide 33 H (22-30) mmol/L BUN 18 H (7-17) mg/dL Calcium 8.0 L (8.4-10.2) mg/dL AST 46 H (14-36) U/L Total Protein 5.2 L (6.3-8.2) g/dL Albumin 2.5 L (3.5-5.0) g/dL Comments: CT of the abdomen and pelvis on admission findings consistent with acute mechanical high-grade small bowel obstruction with transition seen in anterior abdominal wall midline hernia possibly umbilical hernia with suspected bowel ischemia/early in infarction and incarceration within the hernia as described above. No sharri pneumatosis, free peritoneal air or portal venous gas. Suspect hepatic cirrhosis with signs of portal hypertension and large abdominal and pelvic ascites as described above. Assessment and Plan (1) Alcoholic cirrhosis of liver with ascites Narrative/Plan: 58-year-old female who presented to the emergency department with abdominal pain and umbilical hernia. She has a long-standing history of alcohol abuse with decompensated alcoholic cirrhosis of the liver with ascites. She was previously getting paracentesis every 2-3 weeks, diuretics were adjusted and patient is now having paracentesis every 4-6 weeks. This paracentesis around November 25. Patient presented to the emergency room, CT of the abdomen and pelvis showed an incarcerated umbilical hernia with concerns for ischemia/early infarction. She has been seen by Dr. Haro and is shceudled for surgery this afternoon. Patient is high risk for abdominal surgery due to her c versus a liver and ascites. This was discussed with patient. She verbalized understanding. Gastroenterology will continue to follow. Current Visit: Yes Status: Acute Code(s): K70.31 - ALCOHOLIC CIRRHOSIS OF LIVER WITH ASCITES SNOMED Code(s): 745068890 (2) Incarcerated hernia Narrative/Plan: Patient admitted with incarcerated umbilical hernia with reported bowel obstruction was suspected ischemic/early infarction. Patient is being followed by general surgery. She is being scheduled for surgery this afternoon. She has NG tube in place. It was discussed with patient that she is high risk for surgery related to her cirrhosis of the liver and ascites. Patient verbalizes understanding. Current Visit: Yes Status: Acute Code(s): K46.0 - UNSP ABDOMINAL HERNIA WITH OBSTRUCTION, WITHOUT GANGRENE SNOMED Code(s): 54006219 (3) Hypokalemia Current Visit: No Status: Acute Code(s): E87.6 - HYPOKALEMIA SNOMED Code(s): 64717236 Plan: 1. Continue symptomatic and supportive care 2. Continue with recommendations from general surgery 3. Replace potassium 4. Spironolactone 50 mg twice a day 5. Lasix 40 mg twice a day Thank you for this consultation, we will continue to follow. Dr. John Burrows I agree with the dictator's note, documented as a scribe by Sheryl Linares.
[2021-12-29 16:00] LABS: INR 1.1 (<1.2); Prothrombin Time 11.4 sec (9.0-12.0)
[2021-12-29] MEDS ORDERED: IV FLUID CONTINUATION 1,000 ML IV ONE (16:08)
[2021-12-29] MEDS ORDERED: fentaNYL (PF) 50 MCG/ML 2 ML AMP ONE (17:04)
[2021-12-29] MEDS ORDERED: ROCURONIUM 10 MG/ML (5 ML VIAL) IV ONE (17:04)
[2021-12-29] MEDS ORDERED: MIDAZOLAM 2 MG/2 ML VIAL ONE (17:04)
[2021-12-29] MEDS ORDERED: LIDOCAINE 2% INJ 20 MG/ML (2 ML VIAL) ONE (17:04)
[2021-12-29] MEDS ORDERED: PHENYLEPHRINE-0.9% NACL SYG 1,000 MCG/10 ML SYRINGE ONE (17:04)
[2021-12-29] MEDS ORDERED: SUCCINYLCHOLINE CHLORIDE 100 MG/5 ML SYR IV ONE (17:04)
[2021-12-29] MEDS ORDERED: PROPOFOL 10 MG/ML 20 ML VIAL IV ONE (17:04)
[2021-12-29] MEDS ORDERED: NEOSTIGMINE 1 MG/ML 10 ML VIAL ONE (17:04)
[2021-12-29] MEDS ORDERED: GLYCOPYRROLATE 0.2 MG/ML 2 ML VIAL ONE (17:04)
[2021-12-29] MEDS ORDERED: LACTATED RINGERS 1,000 ML IV ONE ×2 (17:55→18:21)
[2021-12-29] MEDS: HYDROmorphone 0.5 MG/0.5 ML SYRINGE IVP PRN ×2 (18:19→22:03)
--- NOTE | 2021-12-29 18:20 | P.OP ---
Date of Procedure: 12/29/21 Preoperative Diagnosis: Incarcerated incisional hernia Postoperative Diagnosis: Strangulated incisional hernia with necrotic small bowel Procedure(s) Performed: Repair of strangulated incisional hernia Small bowel resection Aspiration of 4.5 L of ascites Anesthesia: ALIS Surgeon: Pankaj Haro Estimated Blood Loss (ml): 10 Pathology: other (Necrotic small bowel) Condition: stable Disposition: PACU Operative Findings: Strangulated incisional hernia Description of Procedure: The patient's placed on the operative table in the supine position. She received general endotracheal anesthesia. Her abdomen was prepped and draped usual sterile fashion. The patient had an obvious incarcerated incisional hernia located just above the umbilicus. The skin was incised. And then using left cautery the subcutaneous tissue divided. The hernia sac was dissected free from the subcutaneous tissues. Hernia sac was opened and there was appeared to be necrotic small bowel. The large amount of ascites. Prostate 4.5 L of ascites was aspirated. The hernia neck was open. And then the small bowel was run from the wound. Using the GI stapler the bowel was transected proximally distally. Using the Enseal device the mesentery the bowel was divided. The specimens of pathology. A [id number] functional end-to-end staple anastomosis created using the BURTON and TA stapler. 3-0 GI silk sutures as a crotch stitch. The mesentery the bowel was closed using 3-0 GI silk suture. The abdomen was irrigated. The fascia was closed with looped #1 PDS suture. Another layer fascial closure was performed using #1 Suture. No obvious ascitic fluid leaks were seen. A GLADYS drains placed and some taste issue. Brought through a stab incision in the right lower quadrant. The skin was then closed garret. Patient top she will was sent to recovery room in stable condition.
[2021-12-29] MEDS ORDERED: HYDROmorphone 0.5 MG/0.5 ML SYRINGE IVP ONE (18:56)
[2021-12-29] MEDS ORDERED: ACETAMINOPHEN IV (For NPO) 1,000 MG in EMPTY BAG 1 BAG IVPB PRN (20:15)
[2021-12-29] MEDS: LACTATED RINGERS 1,000 ML IV SCH ×5 (20:47→23:04)
[2021-12-29] MEDS: MIDODRINE 5 MG TAB PO SCH (22:07)
[2021-12-30] MEDS: LACTATED RINGERS 1,000 ML IV SCH ×4 (00:52→00:53)
[2021-12-30] MEDS: HYDROmorphone 0.5 MG/0.5 ML SYRINGE IVP PRN (01:53)
[2021-12-30] MEDS: diphenhydrAMINE 50 MG/ML 1 ML VIAL IVP PRN ×2 (04:26→12:00)
[2021-12-30 05:10] LABS: Amorphous Sediment,Urine Rare /hpf; Appearance,Urine Clear (Clear); Bilirubin,Urine Negative (Negative); Blood,Urine Negative (Negative); Color,Urine Yellow; Glucose,Urine (UA) Negative (Negative); Ketones,Urine Trace (Negative); Leukocyte Esterase,Urine Moderate (Negative); Mucus,Urine Rare /hpf; Nitrite,Urine Negative (Negative); PH, Urine 5.5 (5.0-8.0); Protein,Urine Trace (Negative); RBC,Urine 7 /hpf (0-5); Squamous Epithelial Cell,Urine 1 /hpf (0-4); WBC,Urine 100 /hpf (0-5)
[2021-12-30 05:11] LABS: Specific Gravity,Urine 1.049 (1.001-1.035)
[2021-12-30] MEDS: FUROSEMIDE 40 MG TAB PO SCH ×2 (08:31→15:44)
[2021-12-30] MEDS: SPIRONOLACTONE 25 MG TAB PO SCH ×2 (08:31→22:12)
[2021-12-30] MEDS: MIDODRINE 5 MG TAB PO SCH ×3 (08:31→15:44)
[2021-12-30] MEDS: ENOXAPARIN 40 MG/0.4 ML SYRINGE SQ SCH (08:31)
[2021-12-30 09:40] LABS: Basophils # (A) 0.03 X 10*3/uL (0.00-0.10); Basophils % (A) 0.2 %; Eosinophils # (A) 0.05 X 10*3/uL (0.04-0.35); Eosinophils % (A) 0.4 %; HCT 34.5 % (37.2-46.3); HGB 11.1 g/dL (12.0-15.0); Immature Grans, Automated 0.5 %; Lymphocytes # (A) 1.32 X 10*3/uL (0.90-5.00); Lymphocytes % (A) 9.5 %; MCH 30.3 pg (27.0-32.0); MCHC 32.2 g/dL (32.0-37.0); MCV 94.3 fL (80.0-97.0); Mean Platelet Volume 11.1 fL (9.5-12.2); Monocytes # (A) 0.77 X 10*3/uL (0.20-1.00); Monocytes % (A) 5.5 %; NRBC Per 100 WBC 0 /100 WBCS (0.0-0.0); Neutrophils % (A) 83.9 %; Platelet Count 253 X 10*3/uL (140-440); RBC 3.66 X 10*6/uL (4.10-5.20); RDW 15.2 % (11.5-14.5); WBC 13.94 X 10*3/uL (4.50-10.00)
[2021-12-30] MEDS: PANTOPRAZOLE 40 MG/10 ML VIAL IVP SCH (09:52)
[2021-12-30 10:39] LABS: African American GFR (CKD) 76.1 (60.0-200.0); Albumin 2.3 g/dL (3.8-4.9); Albumin/Globulin Ratio 1.44 (1.60-3.17); Anion Gap 9.2 mmol/L (10.00-18.00); BUN/Creat Ratio 18.89 Ratio (12.00-20.00); Calcium 7.5 mg/dL (8.7-10.3); Carbon Dioxide 25.8 mmol/L (20.0-27.5); Globulin 1.6 g/dL (1.6-3.3); Non-African American GFR(CKD) 65.7 (60.0-200.0); Potassium 3.8 mmol/L (3.5-5.5); Total Bilirubin 0.7 mg/dL (0.30-1.20); Total Protein 3.9 g/dL (6.2-8.2)
[2021-12-30] MEDS: SODIUM CHLORIDE 0.9% 1,000 ML IV SCH ×2 (12:00→21:54)
[2021-12-30] MEDS: PIPERACILLIN-TAZOBACTAM 3.375 GM in SODIUM CHLORIDE 0.9% 100 ML IVPB SCH ×2 (13:41→21:32)
[2021-12-30 14:15] VITALS: BMI 26.1
--- NOTE | 2021-12-30 15:03 | P.PN ---
Subjective Progress Note Date: 12/30/21 CHIEF COMPLAINT: Incarcerated incisional hernia HISTORY OF PRESENT ILLNESS: Patient is status post repair of strangulated incisional hernia, small bowel resection and aspiration of 4.5 L of ascites for strangulated incisional hernia with necrotic small bowel. Postop day #1. Patient does complain of abdominal pain. She reports that the pain medication is helping. Patient feels very dry and thirsty. Urine output has been 300 bowel this morning. NG tube output 250 ML of bilious output. GLADYS drain 30 mL of serosanguineous output. Patient did have a T-max of 101 during the night. Temp is now 98.9. Blood pressures have been on the lower side. Last blood pressure 101/66. WBC 17.7 down to 13.94 hemoglobin 11.1 platelets 253 sodium 137 potassium is 3.8 creatinine 0.9 AST 36 ALT 18 albumin is 2.3 Patient seen and examined with Dr. wong PHYSICAL EXAM: VITAL SIGNS: Reviewed. GENERAL: Well-developed in no acute distress. HEENT: No sclera icterus. Extraocular movements grossly intact. Moist buccal mucosa. Head is atraumatic, normocephalic. ABDOMEN: Soft. Nondistended. Diffuse tenderness. Incisional dressing clean dry and intact NEUROLOGIC: Alert and oriented. Cranial nerves II through XII grossly intact. ASSESSMENT: 1. Strangulated incisional hernia with necrotic bowel status post repair of strangulated incisional hernia, small bowel resection and aspiration of 4.5 L of ascites 2. History of Liver cirrhosis with ascites PLAN: -Increase normal saline IV fluids 125 mL an hour -Add IV Zosyn for antibiotic coverage -Add Hurricaine spray for sore throat -Continue pain medication as needed -Continue NG tube for decompression -Keep patient nothing by mouth -Encourage incentive spirometer use -Consult PT OT -Repeat labs in a.m. -DVT prophylaxis Lovenox and GI prophylaxis Protonix [employer] Technical Director note has been reviewed by physician. Signing provider agrees with the documented findings, assessment, and plan of care. Objective - Vital Signs Vital signs: Vital Signs Temp 98.9 F 12/30/21 07:46 Pulse 90 12/30/21 07:46 Resp 17 12/30/21 07:46 BP 101/66 12/30/21 07:46 Pulse Ox 100 12/30/21 07:46 Intake & Output 12/29/21 12/30/21 12/30/21 18:59 06:59 18:59 Intake Total 1850 1800 1000 Output Total 150 580 370 Balance 1700 1220 630 Weight 68.946 kg 68.946 kg Intake: IV 1150 Intake, IV Titration 700 1800 1000 Amount ACETAMINOPHEN IV (For NPO 100 ) 1,000 mg In Empty Bag 1 bag @ 400 mls/hr IVPB Q6HR PRN Rx#:[id number] Lactated Ringers 1,000 ml 100 @ 999 mls/hr IV .Q1H1M JENNIFER Rx#:[id number] Lactated Ringers 1,000 ml 1000 @ 999 mls/hr IV .Q1H1M JENNIFER Rx#:[id number] Potassium Chloride 10 meq 100 In Water For Injection 1 100ml.bag @ 100 mls/hr IVPB Q1H JENNIFER Rx#: [id number] Sodium Chloride 0.9% 1, 898 892 4433 000 ml @ 125 mls/hr IV . Q8H JENNIFER Rx#:[id number] Output: Gastric Drainage 250 350 Drainage 30 20 Abdomen 30 20 Urine 100 300 Estimated Blood Loss 50 Other: Voiding Method Indwelling Catheter Indwelling Catheter - Labs CBC & Chem 7: 12/30/21 04:17 12/30/21 04:17 Labs: Abnormal Lab Results - Last 24 Hours (Table) 12/30/21 12/30/21 12/30/21 Range/Units 04:17 04:17 04:34 WBC 13.94 H (4.50-10.00) X 10*3/uL RBC 3.66 L (4.10-5.20) X 10*6/uL Hgb 11.1 L (12.0-15.0) g/dL Hct 34.5 L (37.2-46.3) % RDW 15.2 H (11.5-14.5) % Immature Gran # 0.07 H (0.00-0.04) X 10*3/uL Neutrophils # 11.70 H (1.80-7.70) X 10*3/uL Anion Gap 9.20 L (10.00-18.00) mmol/L Glucose 58 L (70-110) mg/dL Calcium 7.5 L (8.7-10.3) mg/dL AST 36 H (13-35) U/L Total Protein 3.9 L (6.2-8.2) g/dL Albumin 2.3 L (3.8-4.9) g/dL Albumin/Globulin Ratio 1.44 L (1.60-3.17) g/dL Ur Specific [place] 1.049 H (1.001-1.035) Urine Protein Trace H (Negative) Urine Ketones Trace H (Negative) Ur Leukocyte Esterase Moderate H (Negative) Urine RBC 7 H (0-5) /hpf Urine WBC 100 H (0-5) /hpf Urine WBC Clumps Few H (None) /hpf Amorphous Sediment Rare H (None) /hpf Urine Mucus Rare H (None) /hpf Microbiology - Last 24 Hours (Table) 12/30/21 04:34 Urine Culture - Preliminary Urine,Voided
--- NOTE | 2021-12-30 16:48 | P.PN ---
Subjective Progress Note Date: 12/30/21 Principal diagnosis: Incarcerated hernia, cirrhosis of liver Patient is seen and examined as follow up for cirrhosis of liver with ascites. SHe was admitted with abdominal pain and incarcerated umbilical hernia. Yesterday she underwent repair of strangulated incisional hernia with small bowel resection. She has NG tube in place with 250 ML brown output. GLADYS drain in place with serosangenous fluid. She is afebrile. Denies any nausea or vomiting. 4.5 liters of ascitic fluid was removed. Objective - Vital Signs Vital signs: Vital Signs Temp 98.9 F 12/30/21 07:46 Pulse 90 12/30/21 07:46 Resp 17 12/30/21 07:46 BP 101/66 12/30/21 07:46 Pulse Ox 100 12/30/21 07:46 Intake & Output 12/29/21 12/30/21 12/30/21 18:59 06:59 18:59 Intake Total 1850 1800 Output Total 150 580 Balance 1700 1220 Weight 68.946 kg Intake: IV 1150 Intake, IV Titration 700 1800 Amount ACETAMINOPHEN IV (For NPO 100 ) 1,000 mg In Empty Bag 1 bag @ 400 mls/hr IVPB Q6HR PRN Rx#:[id number] Lactated Ringers 1,000 ml 100 @ 999 mls/hr IV .Q1H1M JENNIFER Rx#:[id number] Lactated Ringers 1,000 ml 1000 @ 999 mls/hr IV .Q1H1M JENNIFER Rx#:[id number] Potassium Chloride 10 meq 100 In Water For Injection 1 100ml.bag @ 100 mls/hr IVPB Q1H JENNIFER Rx#: [id number] Sodium Chloride 0.9% 1, 600 600 000 ml @ 75 mls/hr IV . [id number] JENNIFER Rx#:[id number] Output: Gastric Drainage 250 Drainage 30 Abdomen 30 Urine 100 300 Estimated Blood Loss 50 Other: Voiding Method Indwelling Catheter - Exam General appearance: The patient is alert, oriented, appears in no acute distress. HET: Head is normocephalic and atraumatic. Conjunctiva pink. Sclera anicteric. Neck: Supple without lymphadenopathy. Abdomen: Soft, surgical tenderness, mildly distended with decreased bowel sounds. Incision with dressing clean dry and intact. No guarding or rigidity. GLADYS drain. Extremities: Normal skin color and turgor. No pedal edema Skin: No rashes, no jaundice Neurological: No focal deficits. Alert and oriented -3. - Labs CBC & Chem 7: 12/30/21 04:17 12/30/21 04:17 Labs: Abnormal Lab Results - Last 24 Hours (Table) 12/30/21 Range/Units 04:34 Ur Specific [place] 1.049 H (1.001-1.035) Urine Protein Trace H (Negative) Urine Ketones Trace H (Negative) Ur Leukocyte Esterase Moderate H (Negative) Urine RBC 7 H (0-5) /hpf Urine WBC 100 H (0-5) /hpf Urine WBC Clumps Few H (None) /hpf Amorphous Sediment Rare H (None) /hpf Urine Mucus Rare H (None) /hpf Assessment and Plan (1) Alcoholic cirrhosis of liver with ascites Narrative/Plan: 58-year-old female who presented to the emergency department with abdominal pain and umbilical hernia. She has a long-standing history of alcohol abuse with decompensated alcoholic cirrhosis of the liver with ascites. She was previously getting paracentesis every 2-3 weeks, diuretics were adjusted and patient is now having paracentesis every 4-6 weeks. This paracentesis around November 25. Patient presented to the emergency room, CT of the abdomen and pelvis showed an incarcerated umbilical hernia with concerns for ischemia/early infarction. She has been seen by Dr. Haro and is shceudled for surgery this afternoon. Patient is high risk for abdominal surgery due to her c versus a liver and ascites. This was discussed with patient. She verbalized understanding. Gastroenterology will continue to follow. Current Visit: Yes Status: Acute Code(s): K70.31 - ALCOHOLIC CIRRHOSIS OF LIVER WITH ASCITES SNOMED Code(s): 463604616 (2) Incarcerated hernia Narrative/Plan: Patient admitted with incarcerated umbilical hernia with reported bowel obstruction was suspected ischemic/early infarction. Patient is being followed by general surgery. She is being scheduled for surgery this afternoon. She has NG tube in place. It was discussed with patient that she is high risk for surgery related to her cirrhosis of the liver and ascites. Patient verbalizes understanding. Status post surgical repair of stangulated incisional hernia with small bowel resection. Current Visit: Yes Status: Acute Code(s): K46.0 - UNSP ABDOMINAL HERNIA WITH OBSTRUCTION, WITHOUT GANGRENE SNOMED Code(s): 63171440 (3) Hypokalemia Current Visit: No Status: Acute Code(s): E87.6 - HYPOKALEMIA SNOMED Code(s): 31917764 Plan: 1. Continue symptomatic and supportive care 2. Continue with recommendations from general surgery 3. Diet per surgery recommendations 4. Spironolactone 50 mg twice a day 5. Lasix 40 mg twice a day Thank you for this consultation, we will continue to follow. Dr. John Burrows I agree with the dictator's note, documented as a scribe by Sheryl Linares.
[2021-12-30] MEDS: BENZOCAINE SPRAY 1 CAN MUCOUS MEM PRN (21:32)
[2021-12-31] MEDS: BENZOCAINE SPRAY 1 CAN MUCOUS MEM PRN (02:30)
[2021-12-31] MEDS: PIPERACILLIN-TAZOBACTAM 3.375 GM in SODIUM CHLORIDE 0.9% 100 ML IVPB SCH ×3 (05:20→21:14)
[2021-12-31] MEDS: SODIUM CHLORIDE 0.9% 1,000 ML IV SCH ×2 (05:21→10:03)
--- NOTE | 2021-12-31 08:41 | P.CONS ---
History of Present Illness - Reason for Consult Consult date: 12/30/21 Requesting physician: Pankaj Haro - Chief Complaint abdominal pain - History of Present Illness Shyann Wynn is a 66 yo F with PMH of alcoholic cirrhosis with ascites, GERD, hypothyroidism who is admitted with incarcerated umbilical hernia. She is POD#1, has NG tube in place with bilious output, reports aching abdominal pain. She denies nausea. Pt hypotensive postop which is improved after IV fluids and resuming her home midodrine. WBC today 14k, Hgb 11, Cr 0.9, albumin 2.3. She did have 4.5 L ascitic fluid removed with surgery yesterday. Review of Systems All systems: negative Constitutional: Reports malaise, Reports weakness, Denies chills, Denies fever Eyes: denies blurred vision, denies pain Ears, nose, mouth and throat: Denies headache, Denies sore throat Cardiovascular: Denies chest pain, Denies shortness of breath Respiratory: Denies cough Gastrointestinal: Reports abdominal pain, Denies diarrhea, Denies nausea, Denies vomiting Genitourinary: Denies dysuria, Denies hematuria Musculoskeletal: Denies myalgias Integumentary: Denies pruritus, Denies rash Neurological: Denies numbness, Denies weakness Psychiatric: Denies anxiety, Denies depression Endocrine: Denies fatigue, Denies weight change Past Medical History Past Medical History: Chest Pain / Angina, CVA/TIA, Fibromyalgia, GERD/Reflux, Osteoarthritis (OA) Additional Past Medical History / Comment(s): Abdominal hernia, liver cirrhosis/past etoh /ascities with paracentesis every 6 weeks, fluid retention from waist down, TIA x3, hypotension, past dumping syndrome after bariatric surg mary, stress urine incontinence, UTI, hemorrhoids. History of Any Multi-Drug Resistant Organisms: None Reported Past Surgical History: Bariatric Surgery, Cholecystectomy, Hysterectomy, Orthopedic Surgery, Tubal Ligation Additional Past Surgical History / Comment(s): HX GASTRIC BYPASS, PAIN CLINIC PROCEDURE, c3-7 fusions, colonoscopy. Past Anesthesia/Blood Transfusion Reactions: No Reported Reaction Additional Past Anesthesia/Blood Transfusion Reaction / Comm: REQUIRE ABOVE AVERAGE LIDOCAINE DOSE. Smoking Status: Former smoker - Past Family History Father Family Medical History: Diabetes Mellitus, Myocardial Infarction ([place]) Additional Family Medical History / Comment(s): Father is . Mother Family Medical History: Cancer, Myocardial Infarction ([place]) Additional Family Medical History / Comment(s): Breast cancer. Mother is living. Medications and Allergies Home Medications Medication Instructions Recorded Confirmed Type Multivitamin [Multivitamins Adult 1 tab PO DAILY 03/15/21 12/29/21 History Gummies] Vitamin B Complex 1 cap PO DAILY@1700 06/19/21 12/29/21 History rOPINIRole HCL [Requip] 0.5 mg PO HS PRN 06/19/21 12/29/21 History Pantoprazole [Protonix] 40 mg PO AC-BRKFST tab 06/24/21 12/29/21 Rx Albuterol Sulfate [Ventolin HFA] 1 - 2 puff INHALATION RT-DAILY PRN 12/29/21 12/29/21 History Folic Acid 0.4 mg PO BID@0900,1700 12/29/21 12/29/21 History Furosemide [Lasix] 80 mg PO DAILY 12/29/21 12/29/21 History Levothyroxine Sodium [Synthroid] 50 mcg PO AC-BRKFST 12/29/21 12/29/21 History Magnesium Oxide [Mag-Ox] 250 mg PO BID@0900,1700 12/29/21 12/29/21 History Midodrine [ProAmatine] 5 mg PO AC-TID@07,11,1630 12/29/21 12/29/21 History Potassium Chloride ER [K-Dur 20] 10 meq PO TID 12/29/21 12/29/21 History Sennosides [Senna] 8.6 mg PO BID 12/29/21 12/29/21 History Spironolactone [Aldactone] 100 mg PO DAILY 12/29/21 12/29/21 History Thiamine [Vitamin B-1] 100 mg PO DAILY@1700 12/29/21 12/29/21 History Allergies Allergy/AdvReac Type Severity Reaction Status Date / Time furosemide [From Lasix] AdvReac Causes BP Verified 12/29/21 16:20 to drop too quickly, still takes at home Gadolinium-Containing AdvReac Flushing Verified 12/29/21 16:20 Contrast Medi Physical Exam Vitals: Vital Signs Temp Pulse Resp BP BP Pulse Ox 12/31/21 07:25 98.6 F 86 16 88/59 97 12/31/21 02:00 98.2 F 84 17 93/58 98 12/30/21 19:59 99.6 F 86 18 91/57 95 12/30/21 14:50 99.2 F 92 18 84/51 93 L Intake and Output 12/30/21 12/31/21 12/31/21 22:59 06:59 14:59 Output Total 1270 Balance -1270 Output: Drainage 20 Abdomen 20 Urine 1250 Other: Voiding Method Indwelling Catheter Gen: well developed, cachexia, no acute distress HEENT: normocephalic, atraumatic, mucus membranes moist Neck: supple, no JVD or thyromegaly CV: RRR, no murmur Lungs: Normal effort, clear thoughout Abd; GLADYS with serosanguinous output, tenderness to palpation Neuro: alert and oriented x3, no focal deficit Skin: warm and dry Results CBC & Chem 7: 12/30/21 04:17 12/30/21 04:17 Labs: Abnormal Lab Results - Last 24 Hours (Table) 12/30/21 12/30/21 Range/Units 04:17 04:17 WBC 13.94 H (4.50-10.00) X 10*3/uL RBC 3.66 L (4.10-5.20) X 10*6/uL Hgb 11.1 L (12.0-15.0) g/dL Hct 34.5 L (37.2-46.3) % RDW 15.2 H (11.5-14.5) % Immature Gran # 0.07 H (0.00-0.04) X 10*3/uL Neutrophils # 11.70 H (1.80-7.70) X 10*3/uL Anion Gap 9.20 L (10.00-18.00) mmol/L Glucose 58 L (70-110) mg/dL Calcium 7.5 L (8.7-10.3) mg/dL AST 36 H (13-35) U/L Total Protein 3.9 L (6.2-8.2) g/dL Albumin 2.3 L (3.8-4.9) g/dL Albumin/Globulin Ratio 1.44 L (1.60-3.17) g/dL Microbiology - Last 24 Hours (Table) 12/30/21 04:34 Urine Culture - Preliminary Urine,Voided Assessment and Plan Plan: 1. Incarcerated umbilical hernia s/p repair. Management per surgery. NG tube to LIS. Zosyn 2. Alcoholic cirrhosis. Continue with lasix, aldactone 3. Hepatorenal syndrome. Hypotension. Continue with midodrine Lovenox for DVT prophylaxis
[2021-12-31 09:51] LABS: African American GFR (CKD) 64.7 (60.0-200.0); Anion Gap 11.8 mmol/L (10.00-18.00); BUN/Creat Ratio 19.03 Ratio (12.00-20.00); Blood Urea Nitrogen 19.6 mg/dL (9.0-27.0); Calcium 7.5 mg/dL (8.7-10.3); Carbon Dioxide 22.2 mmol/L (20.0-27.5); Non-African American GFR(CKD) 55.8 (60.0-200.0); Potassium 3.3 mmol/L (3.5-5.5)
[2021-12-31] MEDS: MIDODRINE 5 MG TAB PO SCH ×3 (09:55→19:20)
[2021-12-31] MEDS: ENOXAPARIN 40 MG/0.4 ML SYRINGE SQ SCH (09:55)
[2021-12-31] MEDS: PANTOPRAZOLE 40 MG/10 ML VIAL IVP SCH (10:03)
[2021-12-31 10:13] LABS: Glucose,Whole Blood 28 mg/dL (75-99)
[2021-12-31] MEDS ORDERED: DEXTROSE 50% SYRINGE 50 ML IVP STA (10:13)
[2021-12-31] MEDS: DEXTROSE 50% SYRINGE 50 ML IVP ONE ×2 (10:17→10:30)
[2021-12-31 10:24] LABS: Basophils # (A) 0.05 X 10*3/uL (0.00-0.10); Basophils % (A) 0.4 %; Eosinophils # (A) 0.02 X 10*3/uL (0.04-0.35); Eosinophils % (A) 0.2 %; HCT 36.2 % (37.2-46.3); HGB 11.4 g/dL (12.0-15.0); Immature Grans, Automated 0.7 %; Lymphocytes # (A) 1.19 X 10*3/uL (0.90-5.00); Lymphocytes % (A) 9.8 %; MCH 29.6 pg (27.0-32.0); MCHC 31.5 g/dL (32.0-37.0); Mean Platelet Volume 10.8 fL (9.5-12.2); Monocytes # (A) 1.06 X 10*3/uL (0.20-1.00); Monocytes % (A) 8.7 %; NRBC Per 100 WBC 0 /100 WBCS (0.0-0.0); Neutrophils # (A) 9.78 X 10*3/uL (1.80-7.70); Neutrophils % (A) 80.2 %; Platelet Count 238 X 10*3/uL (140-440); RBC 3.85 X 10*6/uL (4.10-5.20); RDW 15.5 % (11.5-14.5); WBC 12.18 X 10*3/uL (4.50-10.00)
[2021-12-31 10:28] LABS: Glucose,Whole Blood 51 mg/dL (75-99)
[2021-12-31 10:46] LABS: Glucose,Whole Blood 98 mg/dL (75-99)
[2021-12-31] MEDS ORDERED: POTASSIUM CHLORIDE ER 20 MEQ TAB.ER PO STA (11:09)
[2021-12-31] MEDS: DEXTROSE 5%-0.9% NACL 1,000 ML IV SCH (11:58)
[2021-12-31] MEDS ORDERED: Magnesium Replacement Protocol 1 EACH MISC MISCELLANE PRN (12:08)
[2021-12-31] MEDS: FUROSEMIDE 40 MG TAB PO SCH ×2 (12:12→22:09)
[2021-12-31] MEDS: SPIRONOLACTONE 25 MG TAB PO SCH ×2 (12:13→22:03)
[2021-12-31 12:20] LABS: Glucose,Whole Blood 117 mg/dL (75-99)
--- NOTE | 2021-12-31 12:34 | P.PN ---
Subjective Progress Note Date: 12/31/21 Principal diagnosis: Incarcerated hernia, cirrhosis of liver Patient is seen and examined as follow up for cirrhosis of liver with ascites. SHe was admitted with abdominal pain and incarcerated umbilical hernia. She underwent repair of strangulated incisional hernia with small bowel resection. She has NG tube in place to intermittent suction. GLADYS drain in place with serosangenous fluid. She is afebrile. Denies any nausea or vomiting. Objective - Vital Signs Vital signs: Vital Signs Temp 98.6 F 12/31/21 07:25 Pulse 86 12/31/21 07:25 Resp 16 12/31/21 07:25 BP 88/59 12/31/21 07:25 Pulse Ox 97 12/31/21 07:25 Intake & Output 12/30/21 12/31/21 12/31/21 18:59 06:59 18:59 Intake Total 1000 Output Total 370 1270 Balance 630 -1270 Weight 68.946 kg Intake: Intake, IV Titration 1000 Amount Sodium Chloride 0.9% 1, 1000 000 ml @ 125 mls/hr IV . Q8H [facility] Rx#:[id number] Output: Gastric Drainage 350 Drainage 20 20 Abdomen 20 20 Urine 1250 Other: Voiding Method Indwelling Catheter Indwelling Catheter - Exam General appearance: The patient is alert, oriented, appears in no acute distress. HET: Head is normocephalic and atraumatic. Conjunctiva pink. Sclera anicteric. Neck: Supple without lymphadenopathy. Abdomen: Soft, surgical tenderness, mildly distended with decreased bowel sounds. Incision with dressing clean dry and intact. No guarding or rigidity. GLADYS drain. Extremities: Normal skin color and turgor. No pedal edema Skin: No rashes, no jaundice Neurological: No focal deficits. Alert and oriented -3. - Labs CBC & Chem 7: 12/31/21 07:53 12/31/21 04:11 Labs: Abnormal Lab Results - Last 24 Hours (Table) 12/30/21 12/30/21 Range/Units 04:17 04:17 WBC 13.94 H (4.50-10.00) X 10*3/uL RBC 3.66 L (4.10-5.20) X 10*6/uL Hgb 11.1 L (12.0-15.0) g/dL Hct 34.5 L (37.2-46.3) % RDW 15.2 H (11.5-14.5) % Immature Gran # 0.07 H (0.00-0.04) X 10*3/uL Neutrophils # 11.70 H (1.80-7.70) X 10*3/uL Anion Gap 9.20 L (10.00-18.00) mmol/L Glucose 58 L (70-110) mg/dL Calcium 7.5 L (8.7-10.3) mg/dL AST 36 H (13-35) U/L Total Protein 3.9 L (6.2-8.2) g/dL Albumin 2.3 L (3.8-4.9) g/dL Albumin/Globulin Ratio 1.44 L (1.60-3.17) g/dL Microbiology - Last 24 Hours (Table) 12/30/21 04:34 Urine Culture - Preliminary Urine,Voided Assessment and Plan (1) Alcoholic cirrhosis of liver with ascites Narrative/Plan: 58-year-old female who presented to the emergency department with abdominal pain and umbilical hernia. She has a long-standing history of alcohol abuse with decompensated alcoholic cirrhosis of the liver with ascites. She was previously getting paracentesis every 2-3 weeks, diuretics were adjusted and patient is now having paracentesis every 4-6 weeks. This paracentesis around November 25. Patient presented to the emergency room, CT of the abdomen and pelvis showed an incarcerated umbilical hernia with concerns for ischemia/early infarction. She has been seen by Dr. Haro and is shceudled for surgery this afternoon. Patient is high risk for abdominal surgery due to her c versus a liver and ascites. This was discussed with patient. She verbalized understanding. Gastroenterology will continue to follow. Current Visit: Yes Status: Acute Code(s): K70.31 - ALCOHOLIC CIRRHOSIS OF LIVER WITH ASCITES SNOMED Code(s): 736841178 (2) Incarcerated hernia Narrative/Plan: Patient admitted with incarcerated umbilical hernia with reported bowel obstruction was suspected ischemic/early infarction. Patient is being followed by general surgery. She is being scheduled for surgery this afternoon. She has NG tube in place. It was discussed with patient that she is high risk for surgery related to her cirrhosis of the liver and ascites. Patient verbalizes understanding. Status post surgical repair of stangulated incisional hernia with small bowel resection. Current Visit: Yes Status: Acute Code(s): K46.0 - UNSP ABDOMINAL HERNIA WITH OBSTRUCTION, WITHOUT GANGRENE SNOMED Code(s): 84530057 (3) Hypokalemia Current Visit: No Status: Acute Code(s): E87.6 - HYPOKALEMIA SNOMED Code(s): 31531398 Plan: 1. Continue symptomatic and supportive care 2. Continue with recommendations from general surgery 3. Diet per surgery recommendations 4. Spironolactone 50 mg twice a day 5. Lasix 40 mg twice a day 6. Replace potassium per protocol 7. Patient to follow-up with Dr. Burrows in the office after discharge Thank you for allowing us to participate in the care of the patient, the GI service will sign off, gastroenterology will not be available at the hospital this weekend and through next week. If further evaluation by gastroenterology is required the patient will need transfer as per the primary team's discretion. Dr. John Burrows I agree with the dictator's note, documented as a scribe by Sheryl Linares.
--- NOTE | 2021-12-31 14:27 | P.PN ---
Subjective Progress Note Date: 12/31/21 Shyann Wynn is a 66 yo F with PMH of alcoholic cirrhosis with ascites, GERD, hypothyroidism who is admitted with incarcerated umbilical hernia. She is POD#1, has NG tube in place with bilious output, reports aching abdominal pain. She denies nausea. Pt hypotensive postop which is improved after IV fluids and resuming her home midodrine. WBC today 14k, Hgb 11, Cr 0.9, albumin 2.3. She did have 4.5 L ascitic fluid removed with surgery yesterday. 12/31/2021 afebrile, T-max 99.6, WBC decreased to 12.18.Borderline hypotension on Midodrin. Mean arterial pressures high 60s to mid 70s. Minimal NG output. Denies abdominal pain. Denies nausea ,vomiting. Complains of irritation of throat secondary to NG tube. Potassium 3.3. Renal function stable. Urine culture negative. Objective - Vital Signs Vital signs: Vital Signs Temp 98.6 F 12/31/21 07:25 Pulse 86 12/31/21 10:37 Resp 16 12/31/21 07:25 BP 98/64 12/31/21 10:37 Pulse Ox 97 12/31/21 07:25 Intake & Output 12/30/21 12/31/21 12/31/21 18:59 06:59 18:59 Intake Total 1000 Output Total 370 1270 Balance 630 -1270 Weight 68.946 kg Intake: Intake, IV Titration 1000 Amount Sodium Chloride 0.9% 1, 1000 000 ml @ 125 mls/hr IV . Q8H [facility] Rx#:[id number] Output: Gastric Drainage 350 Drainage 20 20 Abdomen 20 20 Urine 1250 Other: Voiding Method Indwelling Catheter Indwelling Catheter Indwelling Catheter - Exam Gen: cachexic, sitting up in bed, no acute distress HEENT: normocephalic, atraumatic, NG tube present Neck: supple, no JVD CV: RRR, no murmur Lungs: Normal effort, clear thoughout Abd; GLADYS with serosanguinous output, tenderness to palpation, abdominal binder. Hypoactive bowel sounds Neuro: alert and oriented x3, no focal deficit Skin: warm and dry - Labs CBC & Chem 7: 12/31/21 07:53 12/31/21 04:11 Labs: Abnormal Lab Results - Last 24 Hours (Table) 12/31/21 12/31/21 12/31/21 Range/Units 04:11 07:53 10:11 WBC 12.18 H (4.50-10.00) X 10*3/uL RBC 3.85 L (4.10-5.20) X 10*6/uL Hgb 11.4 L (12.0-15.0) g/dL Hct 36.2 L (37.2-46.3) % MCHC 31.5 L (32.0-37.0) g/dL RDW 15.5 H (11.5-14.5) % Immature Gran # 0.08 H (0.00-0.04) X 10*3/uL Neutrophils # 9.78 H (1.80-7.70) X 10*3/uL Monocytes # 1.06 H (0.20-1.00) X 10*3/uL Eosinophils # 0.02 L (0.04-0.35) X 10*3/uL Potassium 3.3 L (3.5-5.5) mmol/L Est GFR (CKD-EPI)NonAf 55.8 L (60.0-200.0) Glucose 34 L* (70-110) mg/dL POC Glucose (mg/dL) 28 L (75-99) mg/dL Calcium 7.5 L (8.7-10.3) mg/dL 12/31/21 Range/Units 10:27 WBC (4.50-10.00) X 10*3/uL RBC (4.10-5.20) X 10*6/uL Hgb (12.0-15.0) g/dL Hct (37.2-46.3) % MCHC (32.0-37.0) g/dL RDW (11.5-14.5) % Immature Gran # (0.00-0.04) X 10*3/uL Neutrophils # (1.80-7.70) X 10*3/uL Monocytes # (0.20-1.00) X 10*3/uL Eosinophils # (0.04-0.35) X 10*3/uL Potassium (3.5-5.5) mmol/L Est GFR (CKD-EPI)NonAf (60.0-200.0) Glucose (70-110) mg/dL POC Glucose (mg/dL) 51 L (75-99) mg/dL Calcium (8.7-10.3) mg/dL Microbiology - Last 24 Hours (Table) 12/30/21 04:34 Urine Culture - Preliminary Urine,Voided Assessment and Plan Assessment: Incarcerated umbilical hernia status post repair, management per surgery. Alcoholic cirrhosis, continues on Aldactone, Lasix as per GI Hepatorenal syndrome, hypotension, continues on Midodrin with close monitoring of blood pressure, may require albumin. Hypoalbuminemia Hypokalemia, potassium replacement ordered. Magnesium level pending. Increase activity as tolerated. PPI for GI prophylaxis, Lovenox for DVT prophylaxis in place. Aggressive pulmonary toileting with incentive spirometer reinforced. The impression and plan of care has been dictated as directed. : I performed a history and examination of this patient, discussed the same with the dictator. I agree with the dictator's note ,documented as a scribe. Any additional findings or plans will be noted.
--- NOTE | 2021-12-31 14:54 | P.PN ---
Subjective Progress Note Date: 12/31/21 CHIEF COMPLAINT: Incarcerated incisional hernia HISTORY OF PRESENT ILLNESS: Patient is status post repair of strangulated incisional hernia, small bowel resection and aspiration of 4.5 L of ascites for strangulated incisional hernia with necrotic small bowel. Postop day #2. Patient is sitting at bedside chair. She denies any bowel activity. She reports that her abdominal pain is controlled. Minimal outputs for the NG tube the night. She did have a blood sugar of 28 and she is receiving dextrose. X- rays has been at the IV fluids. GLADYS drain with serosanguineous output 20 mL. Afebrile. Patient hypotensive but this is chronic for her she takes midodrine. WBC is trending down 12.18 hemoglobin 11.4+ to 38 sodium 138 potassium is 3.3 magnesium 1.8 Patient seen and examined with Dr. wong PHYSICAL EXAM: VITAL SIGNS: Reviewed. GENERAL: Well-developed in no acute distress. HEENT: No sclera icterus. Extraocular movements grossly intact. Moist buccal mucosa. Head is atraumatic, normocephalic. ABDOMEN: Soft. Nondistended. Diffuse tenderness. Incisional dressing clean dry and intact NEUROLOGIC: Alert and oriented. Cranial nerves II through XII grossly intact. ASSESSMENT: 1. Strangulated incisional hernia with necrotic bowel status post repair of strangulated incisional hernia, small bowel resection and aspiration of 4.5 L of ascites 2. History of Liver cirrhosis with ascites 3. Hypokalemia and hypomagnesemia 4. Hypoglycemia PLAN: -Change IV fluids to D5 with normal saline at 125 mL per hour due to hypoglycemia -Discontinue NG tube -Keep patient nothing by mouth -Continue IV Zosyn for antibiotic coverage -Continue pain medication as needed -Encourage incentive spirometer use -Consult PT OT -Repeat labs in a.m. -DVT prophylaxis Lovenox and GI prophylaxis Protonix Physician Section Gang Worker note has been reviewed by physician. Signing provider agrees with the documented findings, assessment, and plan of care. Objective - Vital Signs Vital signs: Vital Signs Temp 98.5 F 12/31/21 14:00 Pulse 83 12/31/21 14:00 Resp 18 12/31/21 14:00 BP 88/62 12/31/21 14:00 Pulse Ox 96 12/31/21 14:00 Intake & Output 04/12/31/21 12/31/21 18:59 06:59 18:59 Intake Total 1000 Output Total 370 1270 Balance 630 -1270 Weight 68.946 kg Intake: Intake, IV Titration 1000 Amount Sodium Chloride 0.9% 1, 1000 000 ml @ 125 mls/hr IV . Q8H [facility] Rx#:[id number] Output: Gastric Drainage 350 Drainage 20 20 Abdomen 20 20 Urine 1250 Other: Voiding Method Indwelling Catheter Indwelling Catheter Indwelling Catheter - Labs CBC & Chem 7: 12/31/21 07:53 12/31/21 04:11 Labs: Abnormal Lab Results - Last 24 Hours (Table) 12/31/21 12/31/21 12/31/21 Range/Units 04:11 07:53 10:11 WBC 12.18 H (4.50-10.00) X 10*3/uL RBC 3.85 L (4.10-5.20) X 10*6/uL Hgb 11.4 L (12.0-15.0) g/dL Hct 36.2 L (37.2-46.3) % MCHC 31.5 L (32.0-37.0) g/dL RDW 15.5 H (11.5-14.5) % Immature Gran # 0.08 H (0.00-0.04) X 10*3/uL Neutrophils # 9.78 H (1.80-7.70) X 10*3/uL Monocytes # 1.06 H (0.20-1.00) X 10*3/uL Eosinophils # 0.02 L (0.04-0.35) X 10*3/uL Potassium 3.3 L (3.5-5.5) mmol/L Est GFR (CKD-EPI)NonAf 55.8 L (60.0-200.0) Glucose 34 L* (70-110) mg/dL POC Glucose (mg/dL) 28 L (75-99) mg/dL Calcium 7.5 L (8.7-10.3) mg/dL 12/31/21 12/31/21 Range/Units 10:27 12:19 WBC (4.50-10.00) X 10*3/uL RBC (4.10-5.20) X 10*6/uL Hgb (12.0-15.0) g/dL Hct (37.2-46.3) % MCHC (32.0-37.0) g/dL RDW (11.5-14.5) % Immature Gran # (0.00-0.04) X 10*3/uL Neutrophils # (1.80-7.70) X 10*3/uL Monocytes # (0.20-1.00) X 10*3/uL Eosinophils # (0.04-0.35) X 10*3/uL Potassium (3.5-5.5) mmol/L Est GFR (CKD-EPI)NonAf (60.0-200.0) Glucose (70-110) mg/dL POC Glucose (mg/dL) 51 L 117 H (75-99) mg/dL Calcium (8.7-10.3) mg/dL Microbiology - Last 24 Hours (Table) 12/30/21 04:34 Urine Culture - Final Urine,Voided
[2021-12-31 18:17] LABS: Glucose,Whole Blood 72 mg/dL (75-99)
[2021-12-31 23:39] LABS: Glucose,Whole Blood 76 mg/dL (75-99)
[2022-01-01] MEDS: DEXTROSE 5%-0.9% NACL 1,000 ML IV SCH ×3 (00:33→20:59)
[2022-01-01 05:57] LABS: Glucose,Whole Blood 113 mg/dL (75-99)
[2022-01-01] MEDS: PIPERACILLIN-TAZOBACTAM 3.375 GM in SODIUM CHLORIDE 0.9% 100 ML IVPB SCH ×3 (05:59→21:51)
[2022-01-01] MEDS: ENOXAPARIN 40 MG/0.4 ML SYRINGE SQ SCH (08:56)
[2022-01-01] MEDS: MIDODRINE 5 MG TAB PO SCH ×3 (08:56→17:33)
[2022-01-01] MEDS: PANTOPRAZOLE 40 MG/10 ML VIAL IVP SCH (08:56)
[2022-01-01 08:58] LABS: Basophils # (A) 0.03 X 10*3/uL (0.00-0.10); Basophils % (A) 0.3 %; Eosinophils # (A) 0.22 X 10*3/uL (0.04-0.35); Eosinophils % (A) 2.5 %; HCT 33.9 % (37.2-46.3); HGB 10.9 g/dL (12.0-15.0); Immature Grans, Automated 0.5 %; Lymphocytes # (A) 1.26 X 10*3/uL (0.90-5.00); Lymphocytes % (A) 14.3 %; MCH 29.8 pg (27.0-32.0); MCHC 32.2 g/dL (32.0-37.0); MCV 92.6 fL (80.0-97.0); Mean Platelet Volume 10.6 fL (9.5-12.2); Monocytes # (A) 0.94 X 10*3/uL (0.20-1.00); Monocytes % (A) 10.7 %; NRBC Per 100 WBC 0 /100 WBCS (0.0-0.0); Neutrophils % (A) 71.7 %; Platelet Count 264 X 10*3/uL (140-440); RBC 3.66 X 10*6/uL (4.10-5.20); RDW 15.3 % (11.5-14.5); WBC 8.79 X 10*3/uL (4.50-10.00)
[2022-01-01 09:10] LABS: Magnesium 1.5 mg/dL (1.5-2.4)
[2022-01-01 09:24] LABS: African American GFR (CKD) 76.1 (60.0-200.0); Anion Gap 9.3 mmol/L (10.00-18.00); BUN/Creat Ratio 17.33 Ratio (12.00-20.00); Blood Urea Nitrogen 15.6 mg/dL (9.0-27.0); Calcium 7.1 mg/dL (8.7-10.3); Carbon Dioxide 25.7 mmol/L (20.0-27.5); Non-African American GFR(CKD) 65.7 (60.0-200.0); Potassium 3.1 mmol/L (3.5-5.5)
[2022-01-01] MEDS: SPIRONOLACTONE 25 MG TAB PO SCH ×2 (10:23→20:59)
[2022-01-01] MEDS: FUROSEMIDE 40 MG TAB PO SCH ×2 (10:23→15:56)
--- NOTE | 2022-01-01 10:23 | P.PN ---
Progress Note - Text Progress Note Date: 01/01/22 Patient feels better today. She does have some incisional pain. Her abdomen is more distended. On exam vital signs are stable. Abdomen soft. Status post small bowel resection for strangulated incisional hernia. Patient appears to be developing ascites. She'll require a paracentesis.
[2022-01-01 11:39] LABS: Glucose,Whole Blood 80 mg/dL (75-99)
[2022-01-01 16:07] LABS: Glucose,Whole Blood 139 mg/dL (75-99)
[2022-01-02 00:09] LABS: Glucose,Whole Blood 100 mg/dL (75-99)
[2022-01-02] MEDS: PIPERACILLIN-TAZOBACTAM 3.375 GM in SODIUM CHLORIDE 0.9% 100 ML IVPB SCH ×3 (06:06→21:30)
[2022-01-02] MEDS: DEXTROSE 5%-0.9% NACL 1,000 ML IV SCH (06:12)
[2022-01-02 06:30] LABS: Glucose,Whole Blood 128 mg/dL (75-99)
[2022-01-02] MEDS: PANTOPRAZOLE 40 MG/10 ML VIAL IVP SCH (08:22)
[2022-01-02] MEDS: ENOXAPARIN 40 MG/0.4 ML SYRINGE SQ SCH (08:22)
[2022-01-02] MEDS: MIDODRINE 5 MG TAB PO SCH ×3 (08:23→18:25)
[2022-01-02] MEDS: SPIRONOLACTONE 25 MG TAB PO SCH ×2 (08:23→21:28)
[2022-01-02] MEDS: FUROSEMIDE 40 MG TAB PO SCH ×2 (08:23→15:02)
[2022-01-02 11:37] LABS: Glucose,Whole Blood 124 mg/dL (75-99)
--- NOTE | 2022-01-02 11:46 | P.PN ---
Progress Note - Text Progress Note Date: 01/02/22 Patient is doing better. She's had a bowel movement. She is requesting 48. On exam vital signs are stable. Abdomen soft. Incisions clean and intact. There is minimal output through his GLADYS drain. The patient does feel like she is developing more ascites. Status post repair of strength related incisional hernia in a cirrhotic patient with large volume ascites. Patient will be scheduled for paracentesis tomorrow. We will advance her diet slowly.
[2022-01-02 18:16] LABS: Glucose,Whole Blood 156 mg/dL (75-99)
[2022-01-03 00:19] LABS: Glucose,Whole Blood 97 mg/dL (75-99)
[2022-01-03] MEDS ORDERED: Potassium Replacement Protocol 1 EACH MISC MISCELLANE PRN (01:09)
--- NOTE | 2022-01-03 01:11 | P.PN ---
Subjective Progress Note Date: 01/01/22 Shyann Wynn is a 66 yo F with PMH of alcoholic cirrhosis with ascites, GERD, hypothyroidism who is admitted with incarcerated umbilical hernia. She is POD#1, has NG tube in place with bilious output, reports aching abdominal pain. She denies nausea. Pt hypotensive postop which is improved after IV fluids and resuming her home midodrine. WBC today 14k, Hgb 11, Cr 0.9, albumin 2.3. She did have 4.5 L ascitic fluid removed with surgery yesterday. 12/31/2021 afebrile, T-max 99.6, WBC decreased to 12.18.Borderline hypotension on Midodrin. Mean arterial pressures high 60s to mid 70s. Minimal NG output. Denies abdominal pain. Denies nausea ,vomiting. Complains of irritation of throat secondary to NG tube. Potassium 3.3. Renal function stable. Urine culture negative. 01/01/2022 Patient is currently resting in the bed. S/p small bowel resection for strangulated incisional hernia. Patient is awake alert and oriented. Abdominal pain is better. Seems to be distended. Patient was started on liquid diet. No bowel movement yet. Laboratory data showed WBC 8.7 hemoglobin 10.9 and platelets 264 Sodium 138 potassium 3.1 chloride 103 bicarb is 24.7 BUN 15.6 and creatinine 0.9 and magnesium 1.5 Patient is being continued IV hydration and antibiotics in the form of Zosyn. Current medications reviewed. Objective - Vital Signs Vital signs: Vital Signs Temp 98.8 F 01/01/22 07:43 Pulse 87 01/01/22 07:43 Resp 17 01/01/22 07:43 BP 94/62 01/01/22 07:43 Pulse Ox 95 01/01/22 07:43 Intake & Output 12/31/21 01/01/22 01/01/22 18:59 06:59 18:59 Intake Total 1450 Output Total 750 40 Balance -750 1410 Intake: Intake, IV Titration 1450 Amount Dextrose 5%-0.9% NaCl 1, 1250 000 ml @ 125 mls/hr IV . Q8H [facility] Rx#:[id number] Piperacillin-Tazobactam 3 200 .375 gm In Sodium Chloride 0.9% 100 ml @ 25 mls/hr IVPB Q8H [facility] Rx#: [id number] Output: Drainage 40 Abdomen 40 Urine 750 Other: Voiding Method Indwelling Catheter Indwelling Catheter Indwelling Catheter - Exam - Exam Gen: cachexic, sitting up in bed, no acute distress HEENT: normocephalic, atraumatic, NG tube present Neck: supple, no JVD CV: RRR, no murmur Lungs: Normal effort, clear thoughout Abd; GLADYS with serosanguinous output, tenderness to palpation, abdominal binder. Hypoactive bowel sounds Neuro: alert and oriented x3, no focal deficit Skin: warm and dry - Labs CBC & Chem 7: 01/01/22 04:45 01/01/22 04:45 Labs: Abnormal Lab Results - Last 24 Hours (Table) 12/31/21 12/31/21 01/01/22 Range/Units 12:19 18:15 04:45 RBC 3.66 L (4.10-5.20) X 10*6/uL Hgb 10.9 L (12.0-15.0) g/dL Hct 33.9 L (37.2-46.3) % RDW 15.3 H (11.5-14.5) % Potassium (3.5-5.5) mmol/L Anion Gap (10.00-18.00) mmol/L Glucose (70-110) mg/dL POC Glucose (mg/dL) 117 H 72 L (75-99) mg/dL Calcium (8.7-10.3) mg/dL 01/01/22 01/01/22 Range/Units 04:45 05:55 RBC (4.10-5.20) X 10*6/uL Hgb (12.0-15.0) g/dL Hct (37.2-46.3) % RDW (11.5-14.5) % Potassium 3.1 L (3.5-5.5) mmol/L Anion Gap 9.30 L (10.00-18.00) mmol/L Glucose 127 H (70-110) mg/dL POC Glucose (mg/dL) 113 H (75-99) mg/dL Calcium 7.1 L (8.7-10.3) mg/dL Microbiology - Last 24 Hours (Table) 12/30/21 04:34 Urine Culture - Final Urine,Voided Assessment and Plan Assessment: Incarcerated umbilical hernia status post repair, management per surgery. Alcoholic cirrhosis, continues on Aldactone, Lasix as per GI Hepatorenal syndrome, hypotension, continues on Midodrin with close monitoring of blood pressure, may require albumin. Hypoalbuminemia Hypokalemia, potassium replacement ordered. Magnesium level pending. Increase activity as tolerated. PPI for GI prophylaxis, Lovenox for DVT prophylaxis in place. replace elctrolytes/. Aggressive pulmonary toileting with incentive spirometer reinforced. Time with Patient: Greater than 30
--- NOTE | 2022-01-03 01:13 | P.PN ---
Subjective Progress Note Date: 01/02/22 Shyann Wynn is a 66 yo F with PMH of alcoholic cirrhosis with ascites, GERD, hypothyroidism who is admitted with incarcerated umbilical hernia. She is POD#1, has NG tube in place with bilious output, reports aching abdominal pain. She denies nausea. Pt hypotensive postop which is improved after IV fluids and resuming her home midodrine. WBC today 14k, Hgb 11, Cr 0.9, albumin 2.3. She did have 4.5 L ascitic fluid removed with surgery yesterday. 12/31/2021 afebrile, T-max 99.6, WBC decreased to 12.18.Borderline hypotension on Midodrin. Mean arterial pressures high 60s to mid 70s. Minimal NG output. Denies abdominal pain. Denies nausea ,vomiting. Complains of irritation of throat secondary to NG tube. Potassium 3.3. Renal function stable. Urine culture negative. 01/01/2022 Patient is currently resting in the bed. S/p small bowel resection for strangulated incisional hernia. Patient is awake alert and oriented. Abdominal pain is better. Seems to be distended. Patient was started on liquid diet. No bowel movement yet. Laboratory data showed WBC 8.7 hemoglobin 10.9 and platelets 264 Sodium 138 potassium 3.1 chloride 103 bicarb is 24.7 BUN 15.6 and creatinine 0.9 and magnesium 1.5 Patient is being continued IV hydration and antibiotics in the form of Zosyn. 01/02/2022 Patient is currently resting in bed. Awake alert and oriented x3. Feels better and was started on clear liquid diet. Abdominal distended but soft. No complaints of abdominal pain. No headache or dizziness or lightheadedness. Patient is scheduled for paracentesis tomorrow. Otherwise patient is on antibiotics in the form of Zosyn and replace electrolytes. Follow-up CBC and BMP tomorrow. Blood sugars controlled. Current medications reviewed. Objective - Vital Signs Vital signs: Vital Signs Temp 97.9 F 01/02/22 14:54 Pulse 84 01/02/22 14:54 Resp 16 01/02/22 14:54 BP 103/68 01/02/22 14:54 Pulse Ox 98 01/02/22 14:54 Intake & Output 01/01/22 01/02/22 01/02/22 18:59 06:59 18:59 Intake Total 1625 Output Total 400 330 Balance 1225 -330 Intake: Intake, IV Titration 1325 Amount Dextrose 5%-0.9% NaCl 1, 1125 000 ml @ 125 mls/hr IV . Q8H [facility] Rx#:[id number] Piperacillin-Tazobactam 3 200 .375 gm In Sodium Chloride 0.9% 100 ml @ 25 mls/hr IVPB Q8H [facility] Rx#: [id number] Oral 300 Output: Drainage 30 Abdomen 30 Urine 400 300 Uretheral (Rubin) 300 Other: Voiding Method Indwelling Catheter Indwelling Catheter # Voids 3 # Bowel Movements 0 1 - Exam - Exam Gen: cachexic, sitting up in bed, no acute distress HEENT: normocephalic, atraumatic, NG tube present Neck: supple, no JVD CV: RRR, no murmur Lungs: Normal effort, clear thoughout Abd; GLADYS with serosanguinous output, tenderness to palpation, abdominal binder. Hypoactive bowel sounds Neuro: alert and oriented x3, no focal deficit Skin: warm and dry - Labs CBC & Chem 7: 01/01/22 04:45 01/01/22 04:45 Labs: Abnormal Lab Results - Last 24 Hours (Table) 01/01/22 01/02/22 01/02/22 Range/Units 16:05 00:08 06:09 POC Glucose (mg/dL) 139 H 100 H 128 H (75-99) mg/dL 01/02/22 Range/Units 11:35 POC Glucose (mg/dL) 124 H (75-99) mg/dL Assessment and Plan Assessment: Incarcerated umbilical hernia status post repair, management per surgery. Alcoholic cirrhosis, continues on Aldactone, Lasix as per GI Hepatorenal syndrome, hypotension, continues on Midodrin with close monitoring of blood pressure, may require albumin. Hypoalbuminemia Hypokalemia, potassium replacement ordered. Magnesium level pending. Increase activity as tolerated. PPI for GI prophylaxis, Lovenox for DVT prophylaxis in place. replace elctrolytes/. Aggressive pulmonary toileting with incentive spirometer reinforced. Time with Patient: Greater than 30
[2022-01-03] MEDS: PIPERACILLIN-TAZOBACTAM 3.375 GM in SODIUM CHLORIDE 0.9% 100 ML IVPB SCH ×2 (05:15→15:14)
[2022-01-03 11:01] LABS: Glucose,Whole Blood 101 mg/dL (75-99)
[2022-01-03 11:59] LABS: Glucose,Whole Blood 101 mg/dL (75-99)
[2022-01-03] MEDS: DEXTROSE 5%-0.9% NACL 1,000 ML IV SCH ×2 (12:06→14:39)
[2022-01-03] MEDS: FUROSEMIDE 40 MG TAB PO SCH ×2 (12:07→16:40)
[2022-01-03] MEDS: PANTOPRAZOLE 40 MG/10 ML VIAL IVP SCH (12:07)
[2022-01-03] MEDS: MIDODRINE 5 MG TAB PO SCH ×3 (12:07→18:01)
[2022-01-03] MEDS: ENOXAPARIN 40 MG/0.4 ML SYRINGE SQ SCH ×2 (12:07→15:23)
[2022-01-03] MEDS: SPIRONOLACTONE 25 MG TAB PO SCH ×2 (12:07→22:19)
[2022-01-03 12:42] LABS: HCT 38.3 % (34.0-46.0); HGB 12.3 gm/dL (11.4-16.0); MCHC 32.1 g/dL (31.0-37.0); MCV 96.7 fL (80.0-100.0); Mean Platelet Volume 8.1; Platelet Count 257 k/uL (150-450); RBC 3.96 m/uL (3.80-5.40); RDW 14.4 % (11.5-15.5); WBC 8.7 k/uL (3.8-10.6)
[2022-01-03 12:52] LABS: INR 1.1 (<1.2); Prothrombin Time 11.8 sec (9.0-12.0)
[2022-01-03 13:00] LABS: African American GFR (CKD) >90 (>60 ml/min/1.73 sqM); Anion Gap 6 mmol/L; Blood Urea Nitrogen 8 mg/dL (7-17); Calcium 6.9 mg/dL (8.4-10.2); Carbon Dioxide 22 mmol/L (22-30); Chloride 102 mmol/L (98-107); Glucose 88 mg/dL (74-99); Non-African American GFR(CKD) >90 (>60 ml/min/1.73 sqM); Potassium 3.3 mmol/L (3.5-5.1); Sodium 130 mmol/L (137-145)
[2022-01-03] MEDS ORDERED: HYDROcodone/APAP 5-325MG 1 EACH TAB ONE (13:14)
[2022-01-03] MEDS: HYDROcodone/APAP 5-325MG 1 EACH TAB PO PRN (13:15)
[2022-01-03 13:18] LABS: Basophils % (A) 0 %; Eosinophils # (A) 0.1 k/uL (0-0.7); Eosinophils % (A) 2 %; HGB 10.8 gm/dL (11.4-16.0); Hypochromasia Slight; Lymphocytes # (A) 1.1 k/uL (1.0-4.8); Lymphocytes % (A) 13 %; MCHC 31.6 g/dL (31.0-37.0); MCV 97.9 fL (80.0-100.0); Mean Platelet Volume 9.2; Monocytes # (A) 0.6 k/uL (0-1.0); Monocytes % (A) 7 %; Neutrophils # (A) 6.2 k/uL (1.3-7.7); Neutrophils % (A) 75 %; Platelet Count 245 k/uL (150-450); RBC 3.47 m/uL (3.80-5.40); RDW 14.5 % (11.5-15.5); WBC 8.3 k/uL (3.8-10.6)
[2022-01-03] MEDS ORDERED: POTASSIUM CHLORIDE ER 20 MEQ TAB.ER PO STA (14:20)
--- NOTE | 2022-01-03 14:41 | P.PN ---
Subjective Progress Note Date: 01/03/22 CHIEF COMPLAINT: Incarcerated incisional hernia HISTORY OF PRESENT ILLNESS: Patient is status post repair of strangulated incisional hernia, small bowel resection and aspiration of 4.5 L of ascites for strangulated incisional hernia with necrotic small bowel. Postop day #5. Patient is developing abdominal ascites. She is scheduled for paracentesis for tomorrow. They were unable to complete the paracentesis today because she received Lovenox. Patient reports only abdominal pain with movement. She denies any nausea or vomiting. She is tolerating a full liquid diet. She reports having bowel movements and flatus. Afebrile. WBC is 8.7 hemoglobin 12.3% to 57 INR is 1.1 sodium is 130 potassium is 3.3 creatinine 0.63 GLADYS drain was 10 ml serosanguineous output Patient seen and examined with Dr. wong PHYSICAL EXAM: VITAL SIGNS: Reviewed. GENERAL: Well-developed in no acute distress. HEENT: No sclera icterus. Extraocular movements grossly intact. Moist buccal mucosa. Head is atraumatic, normocephalic. ABDOMEN: Soft. Abdominal ascites with distention. Incision site with serous to possible purulent discharge at the proximal aspect of incision noted on the dressing NEUROLOGIC: Alert and oriented. Cranial nerves II through XII grossly intact. ASSESSMENT: 1. Strangulated incisional hernia with necrotic bowel status post repair of strangulated incisional hernia, small bowel resection and aspiration of 4.5 L of ascites 2. History of Liver cirrhosis with ascites 3. Hypokalemia and hypomagnesemia 4. Hypoglycemia improved 5. Hyponatremia PLAN: -Continue full liquid diet -Patient scheduled for abdominal paracentesis tomorrow -Hold Lovenox tomorrow morning for paracentesis -Replace potassium -Repeat magnesium level -Normal saline at 50cc/hr -Continue IV Zosyn for antibiotic coverage -Continue pain medication as needed -Encourage incentive spirometer use -Encourage patient to increase activity level -Planning subacute rehab at discharge -Discussed case with medicine service FIRST ASSISTANT MANAGER -DVT prophylaxis Lovenox and GI prophylaxis Protonix Physician Cardiovascular Specialist note has been reviewed by physician. Signing provider agrees with the documented findings, assessment, and plan of care. Objective - Vital Signs Vital signs: Vital Signs Temp 98.4 F 01/03/22 13:18 Pulse 87 01/03/22 13:18 Resp 16 01/02/22 20:00 BP 96/66 01/03/22 13:18 Pulse Ox 97 01/03/22 13:18 Intake & Output 01/02/22 01/03/22 01/03/22 18:59 06:59 18:59 Output Total 330 10 Balance -330 -10 Output: Drainage 30 10 Abdomen 30 10 Urine 300 Uretheral (Rubin) 300 Other: Voiding Method Indwelling Catheter # Voids 1 # Bowel Movements 1 - Labs CBC & Chem 7: 01/03/22 11:50 01/03/22 02:53 Labs: Abnormal Lab Results - Last 24 Hours (Table) 01/02/22 01/03/22 01/03/22 Range/Units 18:15 02:53 02:53 RBC 3.47 L (3.80-5.40) m/uL Hgb 10.8 L (11.4-16.0) gm/dL Sodium 130 L (137-145) mmol/L Potassium 3.3 L (3.5-5.1) mmol/L POC Glucose (mg/dL) 156 H (75-99) mg/dL Calcium 6.9 L (8.4-10.2) mg/dL 01/03/22 01/03/22 Range/Units 06:35 11:58 RBC (3.80-5.40) m/uL Hgb (11.4-16.0) gm/dL Sodium (137-145) mmol/L Potassium (3.5-5.1) mmol/L POC Glucose (mg/dL) 101 H 101 H (75-99) mg/dL Calcium (8.4-10.2) mg/dL
[2022-01-03] MEDS: SODIUM CHLORIDE 0.9% 1,000 ML IV SCH (15:12)
--- NOTE | 2022-01-03 15:48 | P.PN ---
Subjective Progress Note Date: 01/03/22 Shyann Wynn is a 66 yo F with PMH of alcoholic cirrhosis with ascites, GERD, hypothyroidism who is admitted with incarcerated umbilical hernia. She is POD#1, has NG tube in place with bilious output, reports aching abdominal pain. She denies nausea. Pt hypotensive postop which is improved after IV fluids and resuming her home midodrine. WBC today 14k, Hgb 11, Cr 0.9, albumin 2.3. She did have 4.5 L ascitic fluid removed with surgery yesterday. 12/31/2021 afebrile, T-max 99.6, WBC decreased to 12.18.Borderline hypotension on Midodrin. Mean arterial pressures high 60s to mid 70s. Minimal NG output. Denies abdominal pain. Denies nausea ,vomiting. Complains of irritation of throat secondary to NG tube. Potassium 3.3. Renal function stable. Urine culture negative. 01/03/2022 tolerating full liquid diet, denies nausea or vomiting . Positive bowel movement.continues on Zosyn.shortness of breath last night, requiring 2 L nasal cannula, currently maintaining O2 sats in the high 90s. Paracentesis pending. Hemoglobin pending. Maintained on Midodrin ,blood pressure improved. Sitting up at side of bed, minimal ambulation. Receiving potassium supplementation for potassium level 3.3, magnesium level pending. Midline placement pending. Blood sugars stable. Sodium 1:30, recent albumin 2.3. Denies chest pain, palpitations. Objective - Vital Signs Vital signs: Vital Signs Temp 98.4 F 01/03/22 13:18 Pulse 87 01/03/22 13:18 Resp 16 01/02/22 20:00 BP 96/66 01/03/22 13:18 Pulse Ox 97 01/03/22 13:18 Intake & Output 01/02/22 01/03/22 01/03/22 18:59 06:59 18:59 Output Total 330 10 Balance -330 -10 Output: Drainage 30 10 Abdomen 30 10 Urine 300 Uretheral (Rubin) 300 Other: Voiding Method Indwelling Catheter # Voids 1 # Bowel Movements 1 - Exam Gen: cachexic, sitting up at side of bed, no acute distress HEENT: normocephalic, atraumatic Neck: supple, no JVD CV: RRR, no murmur Lungs: Normal effort, clear thoughout Abd; GLADYS with serosanguinous output, tenderness to palpation, abdominal binder. + bowel sounds Neuro: alert and oriented x3, no focal deficits Skin: warm and dry - Labs CBC & Chem 7: 01/03/22 11:50 01/03/22 02:53 Labs: Abnormal Lab Results - Last 24 Hours (Table) 01/02/22 01/03/22 01/03/22 Range/Units 18:15 02:53 02:53 RBC 3.47 L (3.80-5.40) m/uL Hgb 10.8 L (11.4-16.0) gm/dL Sodium 130 L (137-145) mmol/L Potassium 3.3 L (3.5-5.1) mmol/L POC Glucose (mg/dL) 156 H (75-99) mg/dL Calcium 6.9 L (8.4-10.2) mg/dL 01/03/22 01/03/22 Range/Units 06:35 11:58 RBC (3.80-5.40) m/uL Hgb (11.4-16.0) gm/dL Sodium (137-145) mmol/L Potassium (3.5-5.1) mmol/L POC Glucose (mg/dL) 101 H 101 H (75-99) mg/dL Calcium (8.4-10.2) mg/dL Assessment and Plan Assessment: Incarcerated umbilical hernia status post repair, management per surgery. Alcoholic cirrhosis, continues on Aldactone, Lasix as per GI Hepatorenal syndrome, hypotension, continues on Midodrin with close monitoring of blood pressure, may require albumin. Hyponatremia Hypoalbuminemia Hypokalemia Increase activity as tolerated. Hold Lovenox as patient scheduled for paracentesis. Pre-procedure albumin ordered. Midline pending.potassium supplements ordered, Magnesium level pending. Aggressive pulmonary toileting with incentive spirometer reinforced. Prognosis guarded given multiple complex medical issues The impression and plan of care has been dictated as directed. : I performed a history and examination of this patient, discussed the same with the dictator. I agree with the dictator's note ,documented as a scribe. Any additional findings or plans will be noted.
[2022-01-03] MEDS ORDERED: PANTOPRAZOLE 40 MG TABLET PO ONE (16:37)
[2022-01-03] MEDS: PANTOPRAZOLE 40 MG TABLET PO SCH (16:40)
[2022-01-03 17:33] LABS: Glucose,Whole Blood 111 mg/dL (75-99)
[2022-01-03] MEDS: ALBUMIN HUMAN 25% 50 ML in EMPTY BAG 1 BAG IVPB SCH ×6 (22:41→23:45)
[2022-01-04 00:29] LABS: Glucose,Whole Blood 91 mg/dL (75-99)
[2022-01-04] MEDS: PIPERACILLIN-TAZOBACTAM 3.375 GM in SODIUM CHLORIDE 0.9% 100 ML IVPB SCH ×3 (00:43→17:42)
[2022-01-04 09:29] LABS: Magnesium 1.4 mg/dL (1.5-2.4)
[2022-01-04 09:30] LABS: African American GFR (CKD) 108.5 (60.0-200.0); Anion Gap 9.6 mmol/L (10.00-18.00); BUN/Creat Ratio 9.5 Ratio (12.00-20.00); Blood Urea Nitrogen 5.7 mg/dL (9.0-27.0); Calcium 7.1 mg/dL (8.7-10.3); Carbon Dioxide 24.4 mmol/L (20.0-27.5); Non-African American GFR(CKD) 93.7 (60.0-200.0); Potassium 2.8 mmol/L (3.5-5.5)
[2022-01-04] MEDS: SPIRONOLACTONE 25 MG TAB PO SCH ×2 (09:32→20:19)
[2022-01-04] MEDS: FUROSEMIDE 40 MG TAB PO SCH ×2 (09:34→15:46)
[2022-01-04] MEDS: PANTOPRAZOLE 40 MG TABLET PO SCH (09:34)
[2022-01-04] MEDS: MIDODRINE 5 MG TAB PO SCH ×3 (09:34→17:38)
[2022-01-04] MEDS: HYDROcodone/APAP 5-325MG 1 EACH TAB PO PRN ×2 (09:56→15:46)
[2022-01-04] MEDS ORDERED: Potassium Replacement Protocol 1 EACH MISC MISCELLANE PRN ×3 (10:43→23:33)
[2022-01-04] MEDS: POTASSIUM CHLORIDE ER 20 MEQ TAB.ER PO SCH ×5 (10:58→20:19)
[2022-01-04] MEDS ORDERED: LIDOCAINE 1% INJ 10MG/ML (5 ML VIAL-PF) SQ ONE (14:16)
--- NOTE | 2022-01-04 14:29 | P.PN ---
Subjective Progress Note Date: 01/04/22 CHIEF COMPLAINT: Incarcerated incisional hernia HISTORY OF PRESENT ILLNESS: Patient is status post repair of strangulated incisional hernia, small bowel resection and aspiration of 4.5 L of ascites for strangulated incisional hernia with necrotic small bowel. Postop day #6. Patient is developing abdominal ascites. She is scheduled for paracentesis for today with pre-and post albumin. Patient does report some shortness of breath today likely due to her abdominal ascites. She is having flatus. It has been a couple days since her last bowel movement. Denies any nausea or vomiting. Afebrile. WBC is 8.7 hemoglobin is 12.3 sodium 135 potassium is 2.8 creatinine is 0.6 magnesium is 1.4 A1c is 5.0 Patient seen and examined with Dr. wong PHYSICAL EXAM: VITAL SIGNS: Reviewed. GENERAL: Well-developed in no acute distress. HEENT: No sclera icterus. Extraocular movements grossly intact. Moist buccal mucosa. Head is atraumatic, normocephalic. ABDOMEN: Soft. Abdominal ascites with distention. Incision site with serous to possible purulent discharge at the proximal aspect of incision noted on the dressing NEUROLOGIC: Alert and oriented. Cranial nerves II through XII grossly intact. ASSESSMENT: 1. Strangulated incisional hernia with necrotic bowel status post repair of strangulated incisional hernia, small bowel resection and aspiration of 4.5 L of ascites 2. History of Liver cirrhosis with ascites 3. Hypokalemia and hypomagnesemia 4. Hypoglycemia improved 5. Hyponatremia PLAN: -Continue full liquid diet -Patient scheduled for abdominal paracentesis today -Potassium and MG are being replaced -Continue IV fluids -Continue IV Zosyn for antibiotic coverage -Continue pain medication as needed -Encourage incentive spirometer use -Encourage patient to increase activity level -Planning subacute rehab at discharge -DVT prophylaxis Lovenox and GI prophylaxis Protonix Physician Threading Machine Feeder Automatic note has been reviewed by physician. Signing provider agrees with the documented findings, assessment, and plan of care. Objective - Vital Signs Vital signs: Vital Signs Temp 98.2 F 01/04/22 07:45 Pulse 73 01/04/22 14:09 Resp 16 01/04/22 14:09 BP 108/73 01/04/22 14:09 Pulse Ox 100 01/04/22 14:09 Intake & Output 0401/04/22 01/04/22 18:59 06:59 18:59 Intake Total 1270 Output Total 1010 30 Balance 260 -30 Weight 68.946 kg Intake: Oral 1270 Output: Drainage 10 30 Abdomen 10 30 Urine 1000 Other: Voiding Method Indwelling Catheter External Catheter # Voids 2 - Labs CBC & Chem 7: 01/03/22 11:50 01/04/22 03:46 Labs: Abnormal Lab Results - Last 24 Hours (Table) 01/03/22 01/04/22 Range/Units 17:32 03:46 Potassium 2.8 L (3.5-5.5) mmol/L Anion Gap 9.60 L (10.00-18.00) mmol/L BUN 5.7 L (9.0-27.0) mg/dL BUN/Creatinine Ratio 9.50 L (12.00-20.00) Ratio Glucose 65 L (70-110) mg/dL POC Glucose (mg/dL) 111 H (75-99) mg/dL Calcium 7.1 L (8.7-10.3) mg/dL Magnesium 1.4 L (1.5-2.4) mg/dL
--- NOTE | 2022-01-04 15:28 | P.PN ---
Subjective Progress Note Date: 01/04/22 Shyann Wynn is a 66 yo F with PMH of alcoholic cirrhosis with ascites, GERD, hypothyroidism who is admitted with incarcerated umbilical hernia. She is POD#1, has NG tube in place with bilious output, reports aching abdominal pain. She denies nausea. Pt hypotensive postop which is improved after IV fluids and resuming her home midodrine. WBC today 14k, Hgb 11, Cr 0.9, albumin 2.3. She did have 4.5 L ascitic fluid removed with surgery yesterday. 12/31/2021 afebrile, T-max 99.6, WBC decreased to 12.18.Borderline hypotension on Midodrin. Mean arterial pressures high 60s to mid 70s. Minimal NG output. Denies abdominal pain. Denies nausea ,vomiting. Complains of irritation of throat secondary to NG tube. Potassium 3.3. Renal function stable. Urine culture negative. 01/03/2022 tolerating full liquid diet, denies nausea or vomiting . Positive bowel movement.continues on Zosyn.shortness of breath last night, requiring 2 L nasal cannula, currently maintaining O2 sats in the high 90s. Paracentesis pending. Hemoglobin pending. Maintained on Midodrin ,blood pressure improved. Sitting up at side of bed, minimal ambulation. Receiving potassium supplementation for potassium level 3.3, magnesium level pending. Midline placement pending. Blood sugars stable. Sodium 1:30, recent albumin 2.3. Denies chest pain, palpitations. 01/04/2022 sitting up in chair, complaining of incisional tenderness, reports increased shortness of breath during the night, awaiting a paracentesis. Received pre-albumin. Sodium improved, 135. Receiving potassium and magnesium supplements for potassium 2.8, magnesium 1.4. Denies chest pain, palpitations. Objective - Vital Signs Vital signs: Vital Signs Temp 98.2 F 01/04/22 07:45 Pulse 68 01/04/22 14:55 Resp 18 01/04/22 14:55 BP 96/61 01/04/22 14:55 Pulse Ox 100 01/04/22 14:55 Intake & Output 01/03/22 01/04/22 01/04/22 18:59 06:59 18:59 Intake Total 1270 Output Total 1010 30 Balance 260 -30 Weight 68.946 kg Intake: Oral 1270 Output: Drainage 10 30 Abdomen 10 30 Urine 1000 Other: Voiding Method Indwelling Catheter External Catheter # Voids 2 - Exam Gen: cachexic, sitting up in chair, no acute distress HEENT: normocephalic, atraumatic Neck: supple, no JVD CV: RRR, no murmur Lungs: Normal effort, clear thoughout Abd; distended, GLADYS with serosanguinous output, tenderness to palpation, abdominal binder. + bowel sounds Neuro: alert and oriented x3, no focal deficits Skin: warm and dry - Labs CBC & Chem 7: 01/03/22 11:50 01/04/22 03:46 Labs: Abnormal Lab Results - Last 24 Hours (Table) 01/03/22 01/04/22 Range/Units 17:32 03:46 Potassium 2.8 L (3.5-5.5) mmol/L Anion Gap 9.60 L (10.00-18.00) mmol/L BUN 5.7 L (9.0-27.0) mg/dL BUN/Creatinine Ratio 9.50 L (12.00-20.00) Ratio Glucose 65 L (70-110) mg/dL POC Glucose (mg/dL) 111 H (75-99) mg/dL Calcium 7.1 L (8.7-10.3) mg/dL Magnesium 1.4 L (1.5-2.4) mg/dL Assessment and Plan Assessment: Incarcerated umbilical hernia status post repair, management per surgery. Alcoholic cirrhosis, ascites, paracentesis pending Hepatorenal syndrome, hypotension, continues on Midodrin Hyponatremia, improving Hypoalbuminemia Hypokalemia Hypomagnesemia Midline placed 01/04/2022 Increase activity as tolerated. Hold Lovenox, Paracentesis pending. Pre- procedure albumin received, electrolyte replacements in progress. potassium supplements ordered, Magnesium level pending. Aggressive pulmonary toileting with incentive spirometer reinforced. Prognosis guarded given multiple complex medical issues. Discharge planning in progress for subacute rehab. The impression and plan of care has been dictated as directed. : I performed a history and examination of this patient, discussed the same with the dictator. I agree with the dictator's note ,documented as a scribe. Any additional findings or plans will be noted.
[2022-01-04] MEDS: MAGNESIUM SULFATE-D5W PMX 1 GM in DEXTROSE/WATER 1 100ML.BAG IVPB SCH ×2 (15:47→17:39)
[2022-01-04] MEDS: SODIUM CHLORIDE 0.9% 1,000 ML IV SCH (15:48)
--- NOTE | 2022-01-04 16:33 | US ---
EXAMINATION TYPE: US paracentesis abd w/image DATE OF EXAM: 01/04/2022 COMPARISON: NONE HISTORY: Ascites. PROCEDURE: Maximal barrier technique was utilized. The skin overlying a suitable pocket of fluid was localized with ultrasound and the overlying skin was prepped and draped. Ultrasound was utilized with sterile technique. Lidocaine was used for local anesthesia and a skin dio made with a scalpel. Catheter was advanced under direct ultrasound guidance into a suitable pocket of fluid and approximately 1.2 li ters of serous fluid were removed. Catheter was withdrawn and hemostasis achieved. There is no imme diate complication; the patient is discharged in stable condition. IMPRESSION: STATUS POST ULTRASOUND GUIDED PARACENTESIS FOR PALLIATION OF ASCITES. THIS PROCEDURE WA S PERFORMED BY THE UNDERSIGNED.
[2022-01-04 21:12] LABS: Glucose,Whole Blood 103 mg/dL (75-99)
[2022-01-04] MEDS: diphenhydrAMINE 50 MG/ML 1 ML VIAL IVP PRN (21:51)
[2022-01-05] MEDS: POTASSIUM CHLORIDE ER 20 MEQ TAB.ER PO SCH (00:18)
[2022-01-05] MEDS: PIPERACILLIN-TAZOBACTAM 3.375 GM in SODIUM CHLORIDE 0.9% 100 ML IVPB SCH ×3 (01:00→18:02)
[2022-01-05] MEDS: SODIUM CHLORIDE 0.9% 1,000 ML IV SCH (01:05)
[2022-01-05 07:23] LABS: Glucose,Whole Blood 68 mg/dL (75-99)
[2022-01-05 07:37] LABS: Glucose,Whole Blood 92 mg/dL (75-99)
[2022-01-05] MEDS: FUROSEMIDE 40 MG TAB PO SCH ×2 (10:07→16:42)
[2022-01-05] MEDS: SPIRONOLACTONE 25 MG TAB PO SCH ×2 (10:08→20:36)
[2022-01-05] MEDS: PANTOPRAZOLE 40 MG TABLET PO SCH (10:08)
[2022-01-05] MEDS: ENOXAPARIN 40 MG/0.4 ML SYRINGE SQ SCH (10:11)
[2022-01-05] MEDS: MIDODRINE 5 MG TAB PO SCH ×3 (10:36→18:02)
[2022-01-05 11:05] LABS: Magnesium 1.7 mg/dL (1.5-2.4)
[2022-01-05 11:15] LABS: African American GFR (CKD) 110.3 (60.0-200.0); Albumin 2.4 g/dL (3.8-4.9); Albumin/Globulin Ratio 1.42 (1.60-3.17); Anion Gap 4.9 mmol/L (10.00-18.00); BUN/Creat Ratio 6.4 Ratio (12.00-20.00); Blood Urea Nitrogen 3.7 mg/dL (9.0-27.0); Calcium 7.4 mg/dL (8.7-10.3); Carbon Dioxide 29.2 mmol/L (20.0-27.5); Globulin 1.7 g/dL (1.6-3.3); Non-African American GFR(CKD) 95.1 (60.0-200.0); Potassium 4.1 mmol/L (3.5-5.5); Total Bilirubin 0.6 mg/dL (0.30-1.20); Total Protein 4.1 g/dL (6.2-8.2)
[2022-01-05 11:20] LABS: Glucose,Whole Blood 82 mg/dL (75-99)
[2022-01-05] MEDS: MAGNESIUM SULFATE-D5W PMX 1 GM in DEXTROSE/WATER 1 100ML.BAG IVPB SCH ×2 (12:35→14:46)
--- NOTE | 2022-01-05 13:44 | P.PN ---
Subjective Progress Note Date: 01/05/22 CHIEF COMPLAINT: Incarcerated incisional hernia HISTORY OF PRESENT ILLNESS: Patient is status post repair of strangulated incisional hernia, small bowel resection and aspiration of 4.5 L of ascites for strangulated incisional hernia with necrotic small bowel. Postop day #7. Patient status post paracentesis with 1.2 L removed. Patient reports there has been some improvement in her abdominal pain. She reports decrease in her abdominal distention. She is having bowel movements. She is requesting a dvancement of her diet. She is tolerating full liquids. Afebrile. Sodium is 137 potassium 4.1 creatinine 0.6 magnesium 1.7 Patient seen and examined with Dr. wong PHYSICAL EXAM: VITAL SIGNS: Reviewed. GENERAL: Well-developed in no acute distress. HEENT: No sclera icterus. Extraocular movements grossly intact. Moist buccal mucosa. Head is atraumatic, normocephalic. ABDOMEN: Soft. Abdominal ascites with distention. Incision site with serous to possible purulent discharge at the proximal aspect of incision noted on the dressing NEUROLOGIC: Alert and oriented. Cranial nerves II through XII grossly intact. ASSESSMENT: 1. Strangulated incisional hernia with necrotic bowel status post repair of strangulated incisional hernia, small bowel resection and aspiration of 4.5 L of ascites 2. History of Liver cirrhosis with ascites status post paracentesis 3. Hypokalemia improved and hypomagnesemia 4. Hypoglycemia improved 5. Hyponatremia PLAN: -Advance diet to regular -Patient receiving magnesium -Continue IV fluids -Continue IV Zosyn for antibiotic coverage -Continue pain medication as needed -Encourage incentive spirometer use -Encourage patient to increase activity level -Planning subacute rehab at discharge -DVT prophylaxis Lovenox and GI prophylaxis Protonix Physician Pipe And Test Supervisor note has been reviewed by physician. Signing provider agrees with the documented findings, assessment, and plan of care. Objective - Vital Signs Vital signs: Vital Signs Temp 97.9 F 01/05/22 12:07 Pulse 84 01/05/22 12:07 Resp 20 01/05/22 12:07 BP 106/74 01/05/22 12:07 Pulse Ox 100 01/05/22 12:07 Intake & Output 01/04/22 01/05/22 01/05/22 18:59 06:59 18:59 Intake Total 160 Output Total 780 25 Balance -780 160 -25 Weight 68.946 kg Intake: Oral 160 Output: Drainage 30 25 Abdomen 30 25 Urine 750 Other: Voiding Method External Catheter External Catheter Bedpan Diaper # Voids 3 2 # Bowel Movements 1 - Labs CBC & Chem 7: 01/03/22 11:50 01/05/22 06:07 Labs: Abnormal Lab Results - Last 24 Hours (Table) 01/04/22 01/04/22 01/04/22 Range/Units 15:53 15:53 20:47 Potassium 3.1 L (3.5-5.1) mmol/L Carbon Dioxide (20.0-27.5) mmol/L Anion Gap (10.00-18.00) mmol/L BUN (9.0-27.0) mg/dL BUN/Creatinine Ratio (12.00-20.00) Ratio POC Glucose (mg/dL) 103 H (75-99) mg/dL Calcium (8.7-10.3) mg/dL Magnesium 1.3 L (1.6-2.3) mg/dL Total Protein (6.2-8.2) g/dL Albumin (3.8-4.9) g/dL Albumin/Globulin Ratio (1.60-3.17) g/dL 01/04/22 01/05/22 01/05/22 Range/Units 22:10 06:07 07:08 Potassium 3.3 L (3.5-5.1) mmol/L Carbon Dioxide 29.2 H (20.0-27.5) mmol/L Anion Gap 4.90 L (10.00-18.00) mmol/L BUN 3.7 L (9.0-27.0) mg/dL BUN/Creatinine Ratio 6.40 L (12.00-20.00) Ratio POC Glucose (mg/dL) 68 L (75-99) mg/dL Calcium 7.4 L (8.7-10.3) mg/dL Magnesium (1.6-2.3) mg/dL Total Protein 4.1 L (6.2-8.2) g/dL Albumin 2.4 L (3.8-4.9) g/dL Albumin/Globulin Ratio 1.42 L (1.60-3.17) g/dL
--- NOTE | 2022-01-05 13:56 | P.PN ---
Subjective Progress Note Date: 01/05/22 Shyann Wynn is a 66 yo F with PMH of alcoholic cirrhosis with ascites, GERD, hypothyroidism who is admitted with incarcerated umbilical hernia. She is POD#1, has NG tube in place with bilious output, reports aching abdominal pain. She denies nausea. Pt hypotensive postop which is improved after IV fluids and resuming her home midodrine. WBC today 14k, Hgb 11, Cr 0.9, albumin 2.3. She did have 4.5 L ascitic fluid removed with surgery yesterday. 12/31/2021 afebrile, T-max 99.6, WBC decreased to 12.18.Borderline hypotension on Midodrin. Mean arterial pressures high 60s to mid 70s. Minimal NG output. Denies abdominal pain. Denies nausea ,vomiting. Complains of irritation of throat secondary to NG tube. Potassium 3.3. Renal function stable. Urine culture negative. 01/03/2022 tolerating full liquid diet, denies nausea or vomiting . Positive bowel movement.continues on Zosyn.shortness of breath last night, requiring 2 L nasal cannula, currently maintaining O2 sats in the high 90s. Paracentesis pending. Hemoglobin pending. Maintained on Midodrin ,blood pressure improved. Sitting up at side of bed, minimal ambulation. Receiving potassium supplementation for potassium level 3.3, magnesium level pending. Midline placement pending. Blood sugars stable. Sodium 1:30, recent albumin 2.3. Denies chest pain, palpitations. 01/04/2022 sitting up in chair, complaining of incisional tenderness, reports increased shortness of breath during the night, awaiting a paracentesis. Received pre-albumin. Sodium improved, 135. Receiving potassium and magnesium supplements for potassium 2.8, magnesium 1.4. Denies chest pain, palpitations. 01/05/2022 completed paracentesis yesterday with limited 0.2 L of serous fluid drained. Tolerated procedure well. Denies chest pain, palpitations or shortness of breath. Patient is maintaining O2 sats of 100% on 2 L nasal cannula which can be titrated off. Passing flatus. Blood sugar decrease this morning is 68, currently in the high 90s, tolerating full liquid diet. Denies nausea or vomiting. Denies pain, reports surgical tenderness. Denies chest pain, palpitations. Significant weakness and agreeable to subacute rehab. at discharge. Maintained on Zosyn. Afebrile. Electrolytes within normal limits, receiving magnesium supplementation per magnesium level I.7. Renal function stable. Objective - Vital Signs Vital signs: Vital Signs Temp 97.9 F 01/05/22 12:07 Pulse 84 01/05/22 12:07 Resp 20 01/05/22 12:07 BP 106/74 01/05/22 12:07 Pulse Ox 100 01/05/22 12:07 Intake & Output 01/04/22 01/05/22 01/05/22 18:59 06:59 18:59 Intake Total 160 Output Total 780 25 Balance -780 160 -25 Weight 68.946 kg Intake: Oral 160 Output: Drainage 30 25 Abdomen 30 25 Urine 750 Other: Voiding Method External Catheter External Catheter Bedpan Diaper # Voids 3 2 # Bowel Movements 1 - Exam Gen: cachexic, sitting up in chair, no acute distress HEENT: normocephalic, atraumatic Neck: supple, no JVD CV: RRR, no murmur Lungs: Normal effort, clear thoughout Abd; soft, status post surgery , dressing and abdominal binder. + bowel sounds Neuro: alert and oriented x3, no focal deficits Skin: warm and dry - Labs CBC & Chem 7: 01/03/22 11:50 01/05/22 06:07 Labs: Abnormal Lab Results - Last 24 Hours (Table) 01/04/22 01/04/22 01/04/22 Range/Units 15:53 15:53 20:47 Potassium 3.1 L (3.5-5.1) mmol/L Carbon Dioxide (20.0-27.5) mmol/L Anion Gap (10.00-18.00) mmol/L BUN (9.0-27.0) mg/dL BUN/Creatinine Ratio (12.00-20.00) Ratio POC Glucose (mg/dL) 103 H (75-99) mg/dL Calcium (8.7-10.3) mg/dL Magnesium 1.3 L (1.6-2.3) mg/dL Total Protein (6.2-8.2) g/dL Albumin (3.8-4.9) g/dL Albumin/Globulin Ratio (1.60-3.17) g/dL 01/04/22 01/05/22 01/05/22 Range/Units 22:10 06:07 07:08 Potassium 3.3 L (3.5-5.1) mmol/L Carbon Dioxide 29.2 H (20.0-27.5) mmol/L Anion Gap 4.90 L (10.00-18.00) mmol/L BUN 3.7 L (9.0-27.0) mg/dL BUN/Creatinine Ratio 6.40 L (12.00-20.00) Ratio POC Glucose (mg/dL) 68 L (75-99) mg/dL Calcium 7.4 L (8.7-10.3) mg/dL Magnesium (1.6-2.3) mg/dL Total Protein 4.1 L (6.2-8.2) g/dL Albumin 2.4 L (3.8-4.9) g/dL Albumin/Globulin Ratio 1.42 L (1.60-3.17) g/dL Assessment and Plan Assessment: Incarcerated umbilical hernia status post repair, management per surgery. Alcoholic cirrhosis, ascites, status post paracentesis Hepatorenal syndrome, hypotension, continues on Midodrin Hyponatremia, improving Hypoalbuminemia Hypokalemia Hypomagnesemia Midline placed 01/04/2022 Increase activity as tolerated. Hold Lovenox, Paracentesis pending. Increase activity as tolerated .Aggressive pulmonary toileting with incentive spirometer reinforced. Prognosis guarded given multiple complex medical issues. Medically stable for dc. Discharge planning in progress for subacute rehab. The impression and plan of care has been dictated as directed. : I performed a history and examination of this patient, discussed the same with the dictator. I agree with the dictator's note ,documented as a scribe. Any additional findings or plans will be noted.
[2022-01-05 17:11] LABS: Glucose,Whole Blood 106 mg/dL (75-99)
[2022-01-05 21:01] LABS: Glucose,Whole Blood 97 mg/dL (75-99)
[2022-01-06] MEDS: PIPERACILLIN-TAZOBACTAM 3.375 GM in SODIUM CHLORIDE 0.9% 100 ML IVPB SCH ×3 (00:53→16:47)
[2022-01-06] MEDS: diphenhydrAMINE 50 MG/ML 1 ML VIAL IVP PRN (00:53)
[2022-01-06] MEDS: SODIUM CHLORIDE 0.9% 1,000 ML IV SCH (00:54)
[2022-01-06] MEDS: HYDROcodone/APAP 5-325MG 1 EACH TAB PO PRN ×2 (04:20→12:23)
[2022-01-06 07:27] LABS: Glucose,Whole Blood 86 mg/dL (75-99)
[2022-01-06] MEDS: PANTOPRAZOLE 40 MG TABLET PO SCH (08:11)
[2022-01-06] MEDS: SPIRONOLACTONE 25 MG TAB PO SCH ×2 (08:11→16:46)
[2022-01-06] MEDS: MIDODRINE 5 MG TAB PO SCH ×3 (08:11→16:55)
[2022-01-06] MEDS: FUROSEMIDE 40 MG TAB PO SCH ×2 (08:12→16:47)
[2022-01-06] MEDS: ENOXAPARIN 40 MG/0.4 ML SYRINGE SQ SCH (08:12)
[2022-01-06] MEDS: LEVOTHYROXINE 50 MCG TAB PO SCH (10:28)
[2022-01-06 10:55] LABS: Basophils # (A) 0.03 X 10*3/uL (0.00-0.10); Basophils % (A) 0.4 %; Eosinophils # (A) 0.17 X 10*3/uL (0.04-0.35); Eosinophils % (A) 2.2 %; HCT 30.3 % (37.2-46.3); HGB 9.8 g/dL (12.0-15.0); Immature Grans, Automated 0.5 %; Lymphocytes # (A) 1.38 X 10*3/uL (0.90-5.00); Lymphocytes % (A) 17.8 %; MCH 29.3 pg (27.0-32.0); MCHC 32.3 g/dL (32.0-37.0); MCV 90.7 fL (80.0-97.0); Monocytes # (A) 0.97 X 10*3/uL (0.20-1.00); Monocytes % (A) 12.5 %; NRBC Per 100 WBC 0 /100 WBCS (0.0-0.0); Neutrophils # (A) 5.15 X 10*3/uL (1.80-7.70); Neutrophils % (A) 66.6 %; Platelet Count 237 X 10*3/uL (140-440); RBC 3.34 X 10*6/uL (4.10-5.20); RDW 14.9 % (11.5-14.5); WBC 7.74 X 10*3/uL (4.50-10.00)
[2022-01-06 11:07] LABS: African American GFR (CKD) 108.5 (60.0-200.0); Anion Gap 7.3 mmol/L (10.00-18.00); BUN/Creat Ratio 4.83 Ratio (12.00-20.00); Blood Urea Nitrogen 2.9 mg/dL (9.0-27.0); Calcium 7.3 mg/dL (8.7-10.3); Carbon Dioxide 30.7 mmol/L (20.0-27.5); Magnesium 1.7 mg/dL (1.5-2.4); Non-African American GFR(CKD) 93.7 (60.0-200.0); Potassium 3.5 mmol/L (3.5-5.5)
[2022-01-06 11:07] LABS: Glucose,Whole Blood 77 mg/dL (75-99)
[2022-01-06] MEDS ORDERED: LEVOTHYROXINE 50 MCG TAB PO SCH (11:45)
[2022-01-06] MEDS ORDERED: Magnesium Replacement Protocol 1 EACH MISC MISCELLANE PRN (12:36)
[2022-01-06] MEDS ORDERED: Potassium Replacement Protocol 1 EACH MISC MISCELLANE PRN ×2 (12:37→19:51)
--- NOTE | 2022-01-06 12:41 | P.PN ---
Subjective Progress Note Date: 01/06/22 Shyann Wynn is a 66 yo F with PMH of alcoholic cirrhosis with ascites, GERD, hypothyroidism who is admitted with incarcerated umbilical hernia. She is POD#1, has NG tube in place with bilious output, reports aching abdominal pain. She denies nausea. Pt hypotensive postop which is improved after IV fluids and resuming her home midodrine. WBC today 14k, Hgb 11, Cr 0.9, albumin 2.3. She did have 4.5 L ascitic fluid removed with surgery yesterday. 12/31/2021 afebrile, T-max 99.6, WBC decreased to 12.18.Borderline hypotension on Midodrin. Mean arterial pressures high 60s to mid 70s. Minimal NG output. Denies abdominal pain. Denies nausea ,vomiting. Complains of irritation of throat secondary to NG tube. Potassium 3.3. Renal function stable. Urine culture negative. 01/03/2022 tolerating full liquid diet, denies nausea or vomiting . Positive bowel movement.continues on Zosyn.shortness of breath last night, requiring 2 L nasal cannula, currently maintaining O2 sats in the high 90s. Paracentesis pending. Hemoglobin pending. Maintained on Midodrin ,blood pressure improved. Sitting up at side of bed, minimal ambulation. Receiving potassium supplementation for potassium level 3.3, magnesium level pending. Midline placement pending. Blood sugars stable. Sodium 1:30, recent albumin 2.3. Denies chest pain, palpitations. 01/04/2022 sitting up in chair, complaining of incisional tenderness, reports increased shortness of breath during the night, awaiting a paracentesis. Received pre-albumin. Sodium improved, 135. Receiving potassium and magnesium supplements for potassium 2.8, magnesium 1.4. Denies chest pain, palpitations. 01/05/2022 completed paracentesis yesterday with limited 0.2 L of serous fluid drained. Tolerated procedure well. Denies chest pain, palpitations or shortness of breath. Patient is maintaining O2 sats of 100% on 2 L nasal cannula which can be titrated off. Passing flatus. Blood sugar decrease this morning is 68, currently in the high 90s, tolerating full liquid diet. Denies nausea or vomiting. Denies pain, reports surgical tenderness. Denies chest pain, palpitations. Significant weakness and agreeable to subacute rehab. at discharge. Maintained on Zosyn. Afebrile. Electrolytes within normal limits, receiving magnesium supplementation per magnesium level I.7. Renal function stable. 01/06/2022 positive bowel movement Yojana, passing flatus yesterday and today. Complains of being up all night secondary to diuretics administered late- rescheduled. Proximal incision with brownish drainage. T-max 99, WBC 7.74. Consuming 75% of regular diet with no nausea or vomiting. Blood sugars controlled. Potassium 3.5 ,Magnesium 1.7. Oxygen has been weaned off, maintaining O2 sats in the high 90s on room air. Objective - Vital Signs Vital signs: Vital Signs Temp 99 F 01/06/22 11:54 Pulse 82 01/06/22 11:54 Resp 20 01/06/22 11:54 BP 97/62 01/06/22 11:54 Pulse Ox 98 01/06/22 11:54 Intake & Output 01/05/22 01/06/22 01/06/22 18:59 06:59 18:59 Intake Total 1000 200 Output Total 25 30 Balance 975 200 -30 Intake: Intake, IV Titration 1000 Amount Magnesium Sulfate-D5w Pmx 200 1 gm In Dextrose/Water 1 100ml.bag @ 100 mls/hr IVPB Q1H [facility] Rx#: [id number] Piperacillin-Tazobactam 3 200 .375 gm In Sodium Chloride 0.9% 100 ml @ 25 mls/hr IVPB Q8H [facility] Rx#: [id number] Sodium Chloride 0.9% 1, 600 000 ml @ 50 mls/hr IV . Q20H [facility] Rx#:[id number] Oral 200 Output: Drainage 25 30 Abdomen 25 30 Other: Voiding Method Bedpan Bedpan Diaper Diaper # Voids 8 5 # Bowel Movements 1 - Exam Gen: cachexic, sitting up in bed, no acute distress HEENT: normocephalic, atraumatic Neck: supple, no JVD CV: RRR, no murmur Lungs: Normal effort, clear thoughout Abd; soft, status post surgery , brownish drainage from proximal surgical incision site, garret intact, + bowel sounds Neuro: alert and oriented x3, no focal deficits Skin: warm and dry - Labs CBC & Chem 7: 01/06/22 07:21 04/28/22 07:21 Labs: Abnormal Lab Results - Last 24 Hours (Table) 01/05/22 01/06/22 01/06/22 Range/Units 17:08 07:21 07:21 RBC 3.34 L (4.10-5.20) X 10*6/uL Hgb 9.8 L (12.0-15.0) g/dL Hct 30.3 L (37.2-46.3) % RDW 14.9 H (11.5-14.5) % Carbon Dioxide 30.7 H (20.0-27.5) mmol/L Anion Gap 7.30 L (10.00-18.00) mmol/L BUN 2.9 L (9.0-27.0) mg/dL BUN/Creatinine Ratio 4.83 L (12.00-20.00) Ratio POC Glucose (mg/dL) 106 H (75-99) mg/dL Calcium 7.3 L (8.7-10.3) mg/dL Assessment and Plan Assessment: Incarcerated umbilical hernia status post repair, management per surgery. Alcoholic cirrhosis, ascites, status post paracentesis Hepatorenal syndrome, hypotension, continues on Midodrin Hyponatremia, improving Hypoalbuminemia Hypokalemia Hypomagnesemia Midline placed 01/04/2022 Increase activity as tolerated. Hold Lovenox, Paracentesis pending. Cultures ordered of surgical site drainage. Increase activity as tolerated .Maintain aggressive pulmonary toileting with incentive spirometer reinforced. Prognosis guarded given multiple complex medical issues. Discharge planning in progress for subacute rehab. The impression and plan of care has been dictated as directed. : I performed a history and examination of this patient, discussed the same with the dictator. I agree with the dictator's note ,documented as a scribe. Any additional findings or plans will be noted.
[2022-01-06] MEDS ORDERED: POTASSIUM CHLORIDE ER 20 MEQ TAB.ER PO STA (13:48)
--- NOTE | 2022-01-06 13:53 | P.PN ---
Subjective Progress Note Date: 01/06/22 CHIEF COMPLAINT: Incarcerated incisional hernia HISTORY OF PRESENT ILLNESS: Patient is status post repair of strangulated incisional hernia, small bowel resection and aspiration of 4.5 L of ascites for strangulated incisional hernia with necrotic small bowel. Postop day #8. Patient denies any abdominal pain. She is having flatus. Is been a couple days since her last bowel movement. Denies any nausea vomiting GLADYS drain with 30 mL serosanguineous output. She is tolerating regular diet. WBC 7.74 hemoglobin 12.3 down to 9.8 platelets [id number] potassium 3.5 creatinine 0.6 magnesium 1.7 Per nurse incisional dressing had some brownish drainage. Medicines service culture drainage. Patient seen and examined with Dr. wong PHYSICAL EXAM: VITAL SIGNS: Reviewed. GENERAL: Well-developed in no acute distress. HEENT: No sclera icterus. Extraocular movements grossly intact. Moist buccal mucosa. Head is atraumatic, normocephalic. ABDOMEN: Soft. Abdomen slightly more distended yesterday with ascites. Incision site currently clean dry and intact. Hep-Lock IV NEUROLOGIC: Alert and oriented. Cranial nerves II through XII grossly intact. ASSESSMENT: 1. Strangulated incisional hernia with necrotic bowel status post repair of strangulated incisional hernia, small bowel resection and aspiration of 4.5 L of ascites 2. History of Liver cirrhosis with ascites status post paracentesis 3. Hypokalemia and hypomagnesemia 4. Hypoglycemia improved 5. Hyponatremia PLAN: -Hep-Lock IV -Continue regular diet -Patient receiving magnesium -Replace potassium -Continue IV Zosyn for antibiotic coverage -Continue pain medication as needed -Encourage incentive spirometer use -Encourage patient to increase activity level -Planning subacute rehab at discharge -DVT prophylaxis Lovenox and GI prophylaxis Protonix Physician Printing Engineer note has been reviewed by physician. Signing provider agrees with the documented findings, assessment, and plan of care. Objective - Vital Signs Vital signs: Vital Signs Temp 99 F 01/06/22 11:54 Pulse 82 01/06/22 11:54 Resp 20 01/06/22 11:54 BP 97/62 01/06/22 11:54 Pulse Ox 98 01/06/22 11:54 Intake & Output 01/05/22 01/06/22 01/06/22 18:59 06:59 18:59 Intake Total 1000 200 Output Total 25 30 Balance 975 200 -30 Intake: Intake, IV Titration 1000 Amount Magnesium Sulfate-D5w Pmx 200 1 gm In Dextrose/Water 1 100ml.bag @ 100 mls/hr IVPB Q1H [facility] Rx#: [id number] Piperacillin-Tazobactam 3 200 .375 gm In Sodium Chloride 0.9% 100 ml @ 25 mls/hr IVPB Q8H [facility] Rx#: [id number] Sodium Chloride 0.9% 1, 600 000 ml @ 50 mls/hr IV . Q20H [facility] Rx#:[id number] Oral 200 Output: Drainage 25 30 Abdomen 25 30 Other: Voiding Method Bedpan Bedpan Diaper Diaper # Voids 8 5 # Bowel Movements 1 - Labs CBC & Chem 7: 01/06/22 07:21 01/06/22 07:21 Labs: Abnormal Lab Results - Last 24 Hours (Table) 01/05/22 01/06/22 01/06/22 Range/Units 17:08 07:21 07:21 RBC 3.34 L (4.10-5.20) X 10*6/uL Hgb 9.8 L (12.0-15.0) g/dL Hct 30.3 L (37.2-46.3) % RDW 14.9 H (11.5-14.5) % Carbon Dioxide 30.7 H (20.0-27.5) mmol/L Anion Gap 7.30 L (10.00-18.00) mmol/L BUN 2.9 L (9.0-27.0) mg/dL BUN/Creatinine Ratio 4.83 L (12.00-20.00) Ratio POC Glucose (mg/dL) 106 H (75-99) mg/dL Calcium 7.3 L (8.7-10.3) mg/dL
[2022-01-06] MEDS: POTASSIUM CHLORIDE ER 20 MEQ TAB.ER PO SCH ×2 (13:59→16:47)
[2022-01-06] MEDS: MAGNESIUM SULFATE-D5W PMX 1 GM in DEXTROSE/WATER 1 100ML.BAG IVPB SCH ×2 (13:59→16:47)
[2022-01-06] MEDS: MAGNESIUM OXIDE 400 MG TAB PO SCH (16:47)
[2022-01-06] MEDS: FOLIC ACID 1 MG TAB PO SCH (16:47)
[2022-01-06] MEDS: THIAMINE 100 MG TAB PO SCH (16:56)
[2022-01-06] MEDS ORDERED: NON FORMULARY DRUG (Vitamin B Complex [Vitamin B Complex] 1 EACH Capsule) PO SCH (17:00)
[2022-01-06 17:13] LABS: Glucose,Whole Blood 109 mg/dL (75-99)
[2022-01-06] MEDS ORDERED: POTASSIUM BICARBONATE/CIT AC 20 MEQ TABLET.EFF NG-TUBE SCH (20:00)
[2022-01-06 20:19] LABS: Glucose,Whole Blood 104 mg/dL (75-99)
[2022-01-07] MEDS: HYDROcodone/APAP 5-325MG 1 EACH TAB PO PRN ×2 (00:11→15:46)
[2022-01-07] MEDS: PIPERACILLIN-TAZOBACTAM 3.375 GM in SODIUM CHLORIDE 0.9% 100 ML IVPB SCH ×3 (00:12→17:19)
[2022-01-07] MEDS: LEVOTHYROXINE 50 MCG TAB PO SCH (05:54)
[2022-01-07 07:13] LABS: Glucose,Whole Blood 75 mg/dL (75-99)
[2022-01-07 08:26] LABS: HCT 36.2 % (34.0-46.0); HGB 11.2 gm/dL (11.4-16.0); MCH 29.9 pg (25.0-35.0); MCHC 31.1 g/dL (31.0-37.0); MCV 96.2 fL (80.0-100.0); Mean Platelet Volume 8.6; Platelet Count 264 k/uL (150-450); RBC 3.76 m/uL (3.80-5.40); RDW 14.2 % (11.5-15.5); WBC 8.3 k/uL (3.8-10.6)
[2022-01-07 08:31] LABS: African American GFR (CKD) >90 (>60 ml/min/1.73 sqM); Anion Gap 2 mmol/L; Blood Urea Nitrogen 6 mg/dL (7-17); Calcium 7.2 mg/dL (8.4-10.2); Carbon Dioxide 34 mmol/L (22-30); Chloride 96 mmol/L (98-107); Glucose 74 mg/dL (74-99); Non-African American GFR(CKD) >90 (>60 ml/min/1.73 sqM); Sodium 132 mmol/L (137-145)
[2022-01-07] MEDS: MIDODRINE 5 MG TAB PO SCH ×3 (10:25→17:18)
[2022-01-07] MEDS: MULTIVITAMINS, THERA 1 EACH TAB PO SCH (10:26)
[2022-01-07] MEDS: SPIRONOLACTONE 25 MG TAB PO SCH ×2 (10:26→17:19)
[2022-01-07] MEDS: MAGNESIUM OXIDE 400 MG TAB PO SCH ×2 (10:26→17:19)
[2022-01-07] MEDS: FUROSEMIDE 40 MG TAB PO SCH ×2 (10:26→15:46)
[2022-01-07] MEDS: FOLIC ACID 1 MG TAB PO SCH ×2 (10:26→17:19)
[2022-01-07] MEDS: PANTOPRAZOLE 40 MG TABLET PO SCH (10:26)
[2022-01-07] MEDS: ENOXAPARIN 40 MG/0.4 ML SYRINGE SQ SCH (10:26)
[2022-01-07 11:29] LABS: Glucose,Whole Blood 87 mg/dL (75-99)
--- NOTE | 2022-01-07 13:18 | P.PN ---
Subjective Progress Note Date: 01/07/22 Shyann Wynn is a 66 yo F with PMH of alcoholic cirrhosis with ascites, GERD, hypothyroidism who is admitted with incarcerated umbilical hernia. She is POD#1, has NG tube in place with bilious output, reports aching abdominal pain. She denies nausea. Pt hypotensive postop which is improved after IV fluids and resuming her home midodrine. WBC today 14k, Hgb 11, Cr 0.9, albumin 2.3. She did have 4.5 L ascitic fluid removed with surgery yesterday. 12/31/2021 afebrile, T-max 99.6, WBC decreased to 12.18.Borderline hypotension on Midodrin. Mean arterial pressures high 60s to mid 70s. Minimal NG output. Denies abdominal pain. Denies nausea ,vomiting. Complains of irritation of throat secondary to NG tube. Potassium 3.3. Renal function stable. Urine culture negative. 01/03/2022 tolerating full liquid diet, denies nausea or vomiting . Positive bowel movement.continues on Zosyn.shortness of breath last night, requiring 2 L nasal cannula, currently maintaining O2 sats in the high 90s. Paracentesis pending. Hemoglobin pending. Maintained on Midodrin ,blood pressure improved. Sitting up at side of bed, minimal ambulation. Receiving potassium supplementation for potassium level 3.3, magnesium level pending. Midline placement pending. Blood sugars stable. Sodium 1:30, recent albumin 2.3. Denies chest pain, palpitations. 01/04/2022 sitting up in chair, complaining of incisional tenderness, reports increased shortness of breath during the night, awaiting a paracentesis. Received pre-albumin. Sodium improved, 135. Receiving potassium and magnesium supplements for potassium 2.8, magnesium 1.4. Denies chest pain, palpitations. 01/05/2022 completed paracentesis yesterday with limited 0.2 L of serous fluid drained. Tolerated procedure well. Denies chest pain, palpitations or shortness of breath. Patient is maintaining O2 sats of 100% on 2 L nasal cannula which can be titrated off. Passing flatus. Blood sugar decrease this morning is 68, currently in the high 90s, tolerating full liquid diet. Denies nausea or vomiting. Denies pain, reports surgical tenderness. Denies chest pain, palpitations. Significant weakness and agreeable to subacute rehab. at discharge. Maintained on Zosyn. Afebrile. Electrolytes within normal limits, receiving magnesium supplementation per magnesium level I.7. Renal function stable. 01/06/2022 positive bowel movement Yojana, passing flatus yesterday and today. Complains of being up all night secondary to diuretics administered late- rescheduled. Proximal incision with brownish drainage. T-max 99, WBC 7.74. Consuming 75% of regular diet with no nausea or vomiting. Blood sugars controlled. Potassium 3.5 ,Magnesium 1.7. Oxygen has been weaned off, maintaining O2 sats in the high 90s on room air. 01/07/2022 sitting up in chair, reporting shortness of breath, negative congestion or cough, reporting nasal congestion. Denies chest pain, palpitations. T-max 99.2, normal WBC. Decreasing surgical incisional drainage- Wound culture pending. Maintained on Zosyn. Tolerating diet intake with no nausea or vomiting. Positive bowel movement this morning. Objective - Vital Signs Vital signs: Vital Signs Temp 98.3 F 01/07/22 12:12 Pulse 86 01/07/22 12:12 Resp 20 01/07/22 12:12 BP 115/79 01/07/22 12:12 Pulse Ox 96 01/07/22 12:12 Intake & Output 01/06/22 01/07/22 01/07/22 18:59 06:59 18:59 Intake Total 600 Output Total 30 Balance -30 600 Weight 68.946 kg Intake: Oral 600 Output: Drainage 30 Abdomen 30 Other: Voiding Method Toilet Toilet Bedpan Bedpan Diaper Diaper # Voids 2 4 # Bowel Movements 1 - Exam Gen: cachexic, sitting up in chair, no acute distress HEENT: normocephalic, atraumatic Neck: supple, no JVD CV: RRR, no murmur Lungs: Normal effort, clear thoughout Abd; soft, status post surgery , decreasing brownish drainage from proximal surgical incision site, garret intact, + bowel sounds Neuro: alert and oriented x3, no focal deficits Skin: warm and dry - Labs CBC & Chem 7: 01/07/22 06:13 01/07/22 06:13 Labs: Abnormal Lab Results - Last 24 Hours (Table) 01/06/22 01/06/22 01/07/22 Range/Units 17:11 20:18 06:13 RBC 3.76 L (3.80-5.40) m/uL Hgb 11.2 L (11.4-16.0) gm/dL Sodium (137-145) mmol/L Chloride (98-107) mmol/L Carbon Dioxide (22-30) mmol/L BUN (7-17) mg/dL POC Glucose (mg/dL) 109 H 104 H (75-99) mg/dL Calcium (8.4-10.2) mg/dL 01/07/22 Range/Units 06:13 RBC (3.80-5.40) m/uL Hgb (11.4-16.0) gm/dL Sodium 132 L (137-145) mmol/L Chloride 96 L (98-107) mmol/L Carbon Dioxide 34 H (22-30) mmol/L BUN 6 L (7-17) mg/dL POC Glucose (mg/dL) (75-99) mg/dL Calcium 7.2 L (8.4-10.2) mg/dL Microbiology - Last 24 Hours (Table) 01/06/22 10:41 Gram Stain - Preliminary Incision Wound Culture - Preliminary Group D Enterococcus 01/06/22 10:41 Anaerobic Culture - Preliminary Incision Assessment and Plan Assessment: Incarcerated umbilical hernia status post repair, management per surgery. Alcoholic cirrhosis, ascites, status post paracentesis Hepatorenal syndrome, hypotension, continues on Midodrin Hyponatremia, improving Hypoalbuminemia Hypokalemia Hypomagnesemia Midline placed 01/04/2022 Increase activity as tolerated. Repeat Paracentesis ordered, hold a.m. Lovenox. Preprocedure albumin ordered. Continue on Zosyn.Surgical site drainage CX pending. Maintain aggressive pulmonary toileting with incentive spirometer reinforced. Prognosis guarded given multiple complex medical issues. Subacute rehab at discharge. The impression and plan of care has been dictated as directed. : I performed a history and examination of this patient, discussed the same with the dictator. I agree with the dictator's note ,documented as a scribe. Any additional findings or plans will be noted.
--- NOTE | 2022-01-07 14:53 | P.PN ---
Subjective Progress Note Date: 01/07/22 CHIEF COMPLAINT: Incarcerated incisional hernia HISTORY OF PRESENT ILLNESS: Patient is status post repair of strangulated incisional hernia, small bowel resection and aspiration of 4.5 L of ascites for strangulated incisional hernia with necrotic small bowel. Postop day #9. Patient complaining of feeling more short of breath with abdominal distention likely due to her ascites. She's scheduled for paracentesis today. She's had some minimal drainage at the proximal aspect of her incision which is brownish purulent in color. Patient denies any abdominal pain. She is having flatus and bowel movements. She is tolerating regular diet. WBC is 8.3 hemoglobin 11.2 platelets 264 sodium 132 potassium is 4.0 creatinine 0.68 magnesium 1.8 wound culture grows group D enterococcus Patient seen and examined with Dr. wong PHYSICAL EXAM: VITAL SIGNS: Reviewed. GENERAL: Well-developed in no acute distress. HEENT: No sclera icterus. Extraocular movements grossly intact. Moist buccal mucosa. Head is atraumatic, normocephalic. ABDOMEN: Abdomen more distended today with evidence of ascites. Drainage on dressing yellowish purulent color at the proximal aspect of the incision. No significant drainage able to be expressed from the incision. GLADYS drain with 30 mL serosanguineous output NEUROLOGIC: Alert and oriented. Cranial nerves II through XII grossly intact. ASSESSMENT: 1. Strangulated incisional hernia with necrotic bowel status post repair of strangulated incisional hernia, small bowel resection and aspiration of 4.5 L of ascites 2. History of Liver cirrhosis with ascites status post paracentesis 3. Hypokalemia and hypomagnesemia 4. Hypoglycemia improved 5. Hyponatremia PLAN: -Patient scheduled for paracentesis today due to increasing abdominal ascites with shortness of breath -Continue regular diet -Patient receiving magnesium supplement -Continue IV Zosyn for antibiotic coverage -Continue pain medication as needed -Encourage incentive spirometer use -Encourage patient to increase activity level -Planning subacute rehab at discharge hopefully on Monday -DVT prophylaxis Lovenox and GI prophylaxis Protonix Physician Nail Polish Brush Machine Feeder note has been reviewed by physician. Signing provider agrees with the documented findings, assessment, and plan of care. Objective - Vital Signs Vital signs: Vital Signs Temp 98.3 F 01/07/22 12:12 Pulse 86 01/07/22 12:12 Resp 20 01/07/22 12:12 BP 115/79 01/07/22 12:12 Pulse Ox 96 01/07/22 12:12 Intake & Output 01/06/22 01/07/22 01/07/22 18:59 06:59 18:59 Intake Total 600 Output Total 30 Balance -30 600 Weight 68.946 kg Intake: Oral 600 Output: Drainage 30 Abdomen 30 Other: Voiding Method Toilet Toilet Bedpan Bedpan Diaper Diaper # Voids 2 4 # Bowel Movements 1 - Labs CBC & Chem 7: 01/07/22 06:13 01/07/22 06:13 Labs: Abnormal Lab Results - Last 24 Hours (Table) 01/06/22 01/06/22 01/07/22 Range/Units 17:11 20:18 06:13 RBC 3.76 L (3.80-5.40) m/uL Hgb 11.2 L (11.4-16.0) gm/dL Sodium (137-145) mmol/L Chloride (98-107) mmol/L Carbon Dioxide (22-30) mmol/L BUN (7-17) mg/dL POC Glucose (mg/dL) 109 H 104 H (75-99) mg/dL Calcium (8.4-10.2) mg/dL 01/07/22 Range/Units 06:13 RBC (3.80-5.40) m/uL Hgb (11.4-16.0) gm/dL Sodium 132 L (137-145) mmol/L Chloride 96 L (98-107) mmol/L Carbon Dioxide 34 H (22-30) mmol/L BUN 6 L (7-17) mg/dL POC Glucose (mg/dL) (75-99) mg/dL Calcium 7.2 L (8.4-10.2) mg/dL Microbiology - Last 24 Hours (Table) 01/06/22 10:41 Gram Stain - Preliminary Incision Wound Culture - Preliminary Group D Enterococcus 01/06/22 10:41 Anaerobic Culture - Preliminary Incision
--- NOTE | 2022-01-07 15:16 | US ---
EXAMINATION TYPE: US abdomen limited DATE OF EXAM: 01/07/2022 COMPARISON: NONE CLINICAL HISTORY: assess for fluid pocket please. ascites check Abdominal ascites seen Limited scanning performed. IMPRESSION: Mild ascites.
[2022-01-07 17:07] LABS: Glucose,Whole Blood 91 mg/dL (75-99)
[2022-01-07] MEDS: THIAMINE 100 MG TAB PO SCH (17:19)
[2022-01-07] MEDS: ALBUMIN HUMAN 25% 50 ML in EMPTY BAG 1 BAG IVPB SCH ×2 (17:22→17:25)
[2022-01-07] MEDS: LORATADINE 10 MG TAB PO SCH (19:58)
[2022-01-07 20:58] LABS: Glucose,Whole Blood 127 mg/dL (75-99)
[2022-01-08] MEDS: PIPERACILLIN-TAZOBACTAM 3.375 GM in SODIUM CHLORIDE 0.9% 100 ML IVPB SCH ×3 (02:14→16:35)
[2022-01-08] MEDS: LEVOTHYROXINE 50 MCG TAB PO SCH (05:54)
[2022-01-08 07:10] LABS: Glucose,Whole Blood 80 mg/dL (75-99)
[2022-01-08] MEDS: SPIRONOLACTONE 25 MG TAB PO SCH ×2 (08:55→16:35)
[2022-01-08] MEDS: MAGNESIUM OXIDE 400 MG TAB PO SCH ×2 (08:55→16:35)
[2022-01-08] MEDS: ENOXAPARIN 40 MG/0.4 ML SYRINGE SQ SCH (08:55)
[2022-01-08] MEDS: MULTIVITAMINS, THERA 1 EACH TAB PO SCH (08:55)
[2022-01-08] MEDS: FOLIC ACID 1 MG TAB PO SCH ×2 (08:55→16:35)
[2022-01-08] MEDS: MIDODRINE 5 MG TAB PO SCH ×3 (08:55→16:36)
[2022-01-08] MEDS: FUROSEMIDE 40 MG TAB PO SCH ×2 (08:56→16:35)
[2022-01-08] MEDS: PANTOPRAZOLE 40 MG TABLET PO SCH (08:56)
[2022-01-08 11:05] LABS: Glucose,Whole Blood 117 mg/dL (75-99)
[2022-01-08 11:31] LABS: Basophils # (A) 0.05 X 10*3/uL (0.00-0.10); Basophils % (A) 0.5 %; Eosinophils # (A) 0.19 X 10*3/uL (0.04-0.35); Eosinophils % (A) 1.8 %; HGB 9.8 g/dL (12.0-15.0); Immature Grans, Automated 0.6 %; Lymphocytes # (A) 1.53 X 10*3/uL (0.90-5.00); Lymphocytes % (A) 14.4 %; MCH 29.8 pg (27.0-32.0); MCHC 32.7 g/dL (32.0-37.0); MCV 91.2 fL (80.0-97.0); Mean Platelet Volume 10.6 fL (9.5-12.2); Monocytes # (A) 1.18 X 10*3/uL (0.20-1.00); Monocytes % (A) 11.1 %; NRBC Per 100 WBC 0 /100 WBCS (0.0-0.0); Neutrophils # (A) 7.62 X 10*3/uL (1.80-7.70); Neutrophils % (A) 71.6 %; Platelet Count 268 X 10*3/uL (140-440); RBC 3.29 X 10*6/uL (4.10-5.20); RDW 15.4 % (11.5-14.5); WBC 10.63 X 10*3/uL (4.50-10.00)
[2022-01-08 11:53] LABS: African American GFR (CKD) 100.2 (60.0-200.0); Anion Gap 8.2 mmol/L (10.00-18.00); BUN/Creat Ratio 10.88 Ratio (12.00-20.00); Blood Urea Nitrogen 7.8 mg/dL (9.0-27.0); Calcium 7.7 mg/dL (8.7-10.3); Carbon Dioxide 29.9 mmol/L (20.0-27.5); Non-African American GFR(CKD) 86.5 (60.0-200.0); Potassium 3.9 mmol/L (3.5-5.5)
--- NOTE | 2022-01-08 14:05 | P.PN ---
Subjective Progress Note Date: 01/08/22 CHIEF COMPLAINT: Bowel obstruction HISTORY OF PRESENT ILLNESS: The patient is a 66-year-old female status post repair of incisional hernia for bowel obstruction. She reports no paracentesis yesterday. "My belly feels marilee hard." She is having bowel movements--six yesterday, three by this afternoon. ROS: No reports of nausea and vomiting. No bowel movements. No fevers or chills. No new chest pain. No productive sputum PHYSICAL EXAM: VITAL SIGNS: Reviewed CONSTITUTIONAL: Well developed and in no acute distress. EYES: Conjuctivae without sclera icterus. Extraocular movements grossly intact. HEAD, EARS, NOSE, THROAT: Moist buccal mucosa. Head is atraumatic, normocephalic. Hears conversational speech. No nasal drainage. RESPIRATORY: Non-labored respirations and equal bilateral excursions. CARDIOVASCULAR: Palpable 2+ radial pulses. ABDOMEN: Ascites present. Distended but soft MUSCULOSKELETAL: No gross deformity of the lower extremities noted. No clubbing. No cyanosis. SKIN: Good skin turgor. Well perfused. NEUROLOGIC: Cranial nerves II through XII grossly intact. No focal or lateralizing signs. PSYCH: Appropriate affect. Alert and oriented to person, place and time. CLINICAL LABS: Reviewed. REPORTS: Ultrasound report demonstrated minimal ascites. ASSESSMENT: 1. Ascites 2. Bowel obstruction PLAN: 1. Re-assess for paracentesis for Monday. Objective - Vital Signs Vital signs: Vital Signs Temp 98.4 F 01/08/22 11:43 Pulse 83 01/08/22 11:43 Resp 18 01/08/22 11:43 BP 119/82 01/08/22 11:43 Pulse Ox 97 01/08/22 11:43 Intake & Output 01/07/22 01/08/22 01/08/22 18:59 06:59 18:59 Intake Total 100 Output Total 50 20 Balance -50 80 Weight 68.946 kg Intake: Intake, IV Titration 100 Amount Piperacillin-Tazobactam 3 100 .375 gm In Sodium Chloride 0.9% 100 ml @ 25 mls/hr IVPB Q8H [facility] Rx#: [id number] Output: Drainage 50 20 Abdomen 50 20 Other: # Voids 5 4 # Bowel Movements 3 - Labs CBC & Chem 7: 01/08/22 06:31 01/08/22 06:31 Labs: Abnormal Lab Results - Last 24 Hours (Table) 01/07/22 01/08/22 01/08/22 Range/Units 20:48 06:31 06:31 WBC 10.63 H (4.50-10.00) X 10*3/uL RBC 3.29 L (4.10-5.20) X 10*6/uL Hgb 9.8 L (12.0-15.0) g/dL Hct 30.0 L (37.2-46.3) % RDW 15.4 H (11.5-14.5) % Immature Gran # 0.06 H (0.00-0.04) X 10*3/uL Monocytes # 1.18 H (0.20-1.00) X 10*3/uL Carbon Dioxide 29.9 H (20.0-27.5) mmol/L Anion Gap 8.20 L (10.00-18.00) mmol/L BUN 7.8 L (9.0-27.0) mg/dL BUN/Creatinine Ratio 10.88 L (12.00-20.00) Ratio POC Glucose (mg/dL) 127 H (75-99) mg/dL Calcium 7.7 L (8.7-10.3) mg/dL 01/08/22 Range/Units 11:03 WBC (4.50-10.00) X 10*3/uL RBC (4.10-5.20) X 10*6/uL Hgb (12.0-15.0) g/dL Hct (37.2-46.3) % RDW (11.5-14.5) % Immature Gran # (0.00-0.04) X 10*3/uL Monocytes # (0.20-1.00) X 10*3/uL Carbon Dioxide (20.0-27.5) mmol/L Anion Gap (10.00-18.00) mmol/L BUN (9.0-27.0) mg/dL BUN/Creatinine Ratio (12.00-20.00) Ratio POC Glucose (mg/dL) 117 H (75-99) mg/dL Calcium (8.7-10.3) mg/dL Microbiology - Last 24 Hours (Table) 01/06/22 10:41 Gram Stain - Final Incision Wound Culture - Final Enterococcus faecium VRE
[2022-01-08] MEDS: THIAMINE 100 MG TAB PO SCH (16:35)
[2022-01-08 17:17] LABS: Glucose,Whole Blood 83 mg/dL (75-99)
[2022-01-08] MEDS: LORATADINE 10 MG TAB PO SCH (19:46)
[2022-01-08 20:46] LABS: Glucose,Whole Blood 105 mg/dL (75-99)
[2022-01-09] MEDS: PIPERACILLIN-TAZOBACTAM 3.375 GM in SODIUM CHLORIDE 0.9% 100 ML IVPB SCH ×3 (00:35→17:08)
[2022-01-09] MEDS: HYDROcodone/APAP 5-325MG 1 EACH TAB PO PRN ×3 (02:42→20:00)
[2022-01-09] MEDS: LEVOTHYROXINE 50 MCG TAB PO SCH (05:47)
[2022-01-09 07:18] LABS: Glucose,Whole Blood 92 mg/dL (75-99)
[2022-01-09] MEDS: SPIRONOLACTONE 25 MG TAB PO SCH ×2 (07:31→17:08)
[2022-01-09] MEDS: MULTIVITAMINS, THERA 1 EACH TAB PO SCH (07:31)
[2022-01-09] MEDS: ENOXAPARIN 40 MG/0.4 ML SYRINGE SQ SCH (07:31)
[2022-01-09] MEDS: FUROSEMIDE 40 MG TAB PO SCH ×2 (07:32→17:08)
[2022-01-09] MEDS: MAGNESIUM OXIDE 400 MG TAB PO SCH ×2 (07:32→17:08)
[2022-01-09] MEDS: MIDODRINE 5 MG TAB PO SCH ×3 (07:32→17:08)
[2022-01-09] MEDS: FOLIC ACID 1 MG TAB PO SCH ×2 (07:32→17:08)
[2022-01-09] MEDS: PANTOPRAZOLE 40 MG TABLET PO SCH (07:32)
[2022-01-09 10:53] LABS: Glucose,Whole Blood 90 mg/dL (75-99)
--- NOTE | 2022-01-09 14:44 | P.PN ---
Subjective Progress Note Date: 01/09/22 CHIEF COMPLAINT: Bowel obstruction HISTORY OF PRESENT ILLNESS: The patient is a 66-year-old female status post repair of incisional hernia for bowel obstruction. She is resting comfortably. Per her nurse, she is ambulating and having bowel movements. No increase in pain needs ROS: No reports of nausea and vomiting. No fevers or chills. No new chest pain. No productive sputum PHYSICAL EXAM: VITAL SIGNS: Reviewed CONSTITUTIONAL: Well developed and in no acute distress. HEAD, EARS, NOSE, THROAT: Head is atraumatic, normocephalic. No nasal drainage. RESPIRATORY: Non-labored respirations and equal bilateral excursions. CARDIOVASCULAR: Palpable 2+ radial pulses. ABDOMEN: Ascites present. MUSCULOSKELETAL: No gross deformity of the lower extremities noted. No clubbing. No cyanosis. SKIN: Good skin turgor. Well perfused. NEUROLOGIC: Cranial nerves II through XII grossly intact. No focal or lateralizing signs. CLINICAL LABS: Reviewed. BSG 90. ASSESSMENT: 1. Ascites 2. Bowel obstruction 3. Diarrhea PLAN: 1. She is in contact precautions with diarrhea 2. May benefit from CDiff check 3. Re-assess for paracentesis Objective - Vital Signs Vital signs: Vital Signs Temp 97.5 F L 01/09/22 11:08 Pulse 83 01/09/22 11:08 Resp 18 01/09/22 11:08 BP 100/68 01/09/22 11:08 Pulse Ox 94 L 01/09/22 11:08 Intake & Output 01/08/22 01/09/22 01/09/22 18:59 06:59 18:59 Intake Total 200 100 Balance 200 100 Intake: Intake, IV Titration 200 100 Amount Piperacillin-Tazobactam 3 200 100 .375 gm In Sodium Chloride 0.9% 100 ml @ 25 mls/hr IVPB Q8H [facility] Rx#: [id number] Other: Voiding Method Toilet Bedpan Diaper # Voids 6 2 # Bowel Movements 1 1 - Labs CBC & Chem 7: 01/08/22 06:31 01/08/22 06:31 Labs: Abnormal Lab Results - Last 24 Hours (Table) 01/08/22 Range/Units 20:40 POC Glucose (mg/dL) 105 H (75-99) mg/dL Microbiology - Last 24 Hours (Table) 01/06/22 10:41 Anaerobic Culture - Preliminary Incision 01/06/22 10:41 Gram Stain - Final Incision Wound Culture - Final Enterococcus faecium VRE
[2022-01-09 17:01] LABS: Glucose,Whole Blood 71 mg/dL (75-99)
[2022-01-09] MEDS: THIAMINE 100 MG TAB PO SCH (17:08)
[2022-01-09] MEDS: LORATADINE 10 MG TAB PO SCH (20:00)
[2022-01-09 20:32] LABS: Glucose,Whole Blood 88 mg/dL (75-99)
--- NOTE | 2022-01-09 21:14 | P.PN ---
Subjective Progress Note Date: 01/08/22 Shyann Wynn is a 66 yo F with PMH of alcoholic cirrhosis with ascites, GERD, hypothyroidism who is admitted with incarcerated umbilical hernia. She is POD#1, has NG tube in place with bilious output, reports aching abdominal pain. She denies nausea. Pt hypotensive postop which is improved after IV fluids and resuming her home midodrine. WBC today 14k, Hgb 11, Cr 0.9, albumin 2.3. She did have 4.5 L ascitic fluid removed with surgery yesterday. 12/31/2021 afebrile, T-max 99.6, WBC decreased to 12.18.Borderline hypotension on Midodrin. Mean arterial pressures high 60s to mid 70s. Minimal NG output. Denies abdominal pain. Denies nausea ,vomiting. Complains of irritation of throat secondary to NG tube. Potassium 3.3. Renal function stable. Urine culture negative. 01/01/2022 Patient is currently resting in the bed. S/p small bowel resection for strangulated incisional hernia. Patient is awake alert and oriented. Abdominal pain is better. Seems to be distended. Patient was started on liquid diet. No bowel movement yet. Laboratory data showed WBC 8.7 hemoglobin 10.9 and platelets 264 Sodium 138 potassium 3.1 chloride 103 bicarb is 24.7 BUN 15.6 and creatinine 0.9 and magnesium 1.5 Patient is being continued IV hydration and antibiotics in the form of Zosyn. 01/02/2022 Patient is currently resting in bed. Awake alert and oriented x3. Feels better and was started on clear liquid diet. Abdominal distended but soft. No complaints of abdominal pain. No headache or dizziness or lightheadedness. Patient is scheduled for paracentesis tomorrow. Otherwise patient is on antibiotics in the form of Zosyn and replace electrolytes. Follow-up CBC and BMP tomorrow. Blood sugars controlled. 01/08/2022 Patient is currently lying in the bed. Awake alert and orient x3. Denied any complaints of chest pain or shortness of breath. Patient states that her abdomen is distended again. Patient does have bowel movements otherwise. Surgical site is bandaged. Patient has been afebrile overnight currently on room air. Laboratory data showed WBC 10.6 hemoglobin 9.8 and platelets 268 Sodium 135 potassium 3.9 chloride 97 bicarb is 29.9 BUN 7.8 and creatinine 0.7 and calcium 7.7. Current medications reviewed. Objective - Vital Signs Vital signs: Vital Signs Temp 98.3 F 01/08/22 04:48 Pulse 86 01/08/22 08:54 Resp 16 01/08/22 04:48 BP 81/55 01/08/22 08:54 Pulse Ox 98 01/08/22 04:48 Intake & Output 01/07/22 01/08/22 01/08/22 18:59 06:59 18:59 Intake Total 100 Output Total 50 20 Balance -50 80 Weight 68.946 kg Intake: Intake, IV Titration 100 Amount Piperacillin-Tazobactam 3 100 .375 gm In Sodium Chloride 0.9% 100 ml @ 25 mls/hr IVPB Q8H [facility] Rx#: [id number] Output: Drainage 50 20 Abdomen 50 20 Other: # Voids 5 4 # Bowel Movements 3 - Exam - Exam Gen: cachexic, sitting up in bed, no acute distress HEENT: normocephalic, atraumatic, NG tube present Neck: supple, no JVD CV: RRR, no murmur Lungs: Normal effort, clear thoughout Abd; Soft nontender. Surgical site intact. Mild distention with ascites. Bowel sounds present. Neuro: alert and oriented x3, no focal deficit Skin: warm and dry - Labs CBC & Chem 7: 01/08/22 06:31 01/08/22 06:31 Labs: Abnormal Lab Results - Last 24 Hours (Table) 01/07/22 01/08/22 Range/Units 20:48 11:03 POC Glucose (mg/dL) 127 H 117 H (75-99) mg/dL Microbiology - Last 24 Hours (Table) 01/06/22 10:41 Gram Stain - Preliminary Incision Wound Culture - Preliminary Group D Enterococcus Assessment and Plan Assessment: Incarcerated umbilical hernia status post repair, management per surgery. Recurrent Ascites Alcoholic cirrhosis, continues on Aldactone, Lasix as per GI Hepatorenal syndrome, hypotension, continues on Midodrin with close monitoring of blood pressure, may require albumin. Hypoalbuminemia Hypokalemia, potassium replacement ordered. Magnesium level pending. Increase activity as tolerated. PPI for GI prophylaxis, Lovenox for DVT prophylaxis in place. replace elctrolytes/. Aggressive pulmonary toileting with incentive spirometer reinforced.
--- NOTE | 2022-01-09 21:20 | P.PN ---
Subjective Progress Note Date: 01/09/22 Shyann Wynn is a 66 yo F with PMH of alcoholic cirrhosis with ascites, GERD, hypothyroidism who is admitted with incarcerated umbilical hernia. She is POD#1, has NG tube in place with bilious output, reports aching abdominal pain. She denies nausea. Pt hypotensive postop which is improved after IV fluids and resuming her home midodrine. WBC today 14k, Hgb 11, Cr 0.9, albumin 2.3. She did have 4.5 L ascitic fluid removed with surgery yesterday. 12/31/2021 afebrile, T-max 99.6, WBC decreased to 12.18.Borderline hypotension on Midodrin. Mean arterial pressures high 60s to mid 70s. Minimal NG output. Denies abdominal pain. Denies nausea ,vomiting. Complains of irritation of throat secondary to NG tube. Potassium 3.3. Renal function stable. Urine culture negative. 01/01/2022 Patient is currently resting in the bed. S/p small bowel resection for strangulated incisional hernia. Patient is awake alert and oriented. Abdominal pain is better. Seems to be distended. Patient was started on liquid diet. No bowel movement yet. Laboratory data showed WBC 8.7 hemoglobin 10.9 and platelets 264 Sodium 138 potassium 3.1 chloride 103 bicarb is 24.7 BUN 15.6 and creatinine 0.9 and magnesium 1.5 Patient is being continued IV hydration and antibiotics in the form of Zosyn. 01/02/2022 Patient is currently resting in bed. Awake alert and oriented x3. Feels better and was started on clear liquid diet. Abdominal distended but soft. No complaints of abdominal pain. No headache or dizziness or lightheadedness. Patient is scheduled for paracentesis tomorrow. Otherwise patient is on antibiotics in the form of Zosyn and replace electrolytes. Follow-up CBC and BMP tomorrow. Blood sugars controlled. 01/08/2022 Patient is currently lying in the bed. Awake alert and orient x3. Denied any complaints of chest pain or shortness of breath. Patient states that her abdomen is distended again. Patient does have bowel movements otherwise. Surgical site is bandaged. Patient has been afebrile overnight currently on room air. Laboratory data showed WBC 10.6 hemoglobin 9.8 and platelets 268 Sodium 135 potassium 3.9 chloride 97 bicarb is 29.9 BUN 7.8 and creatinine 0.7 and calcium 7.7. 01/09/2022 Patient is sitting in the chair comfortably. Awake alert and oriented x3. No fever no chills. Abdominal surgical wound culture showed Enterococcus faecium VRE. Patient is currently on antibiotics in the form of Zosyn. Ultrasound-guided paracentesis was ordered for tomorrow. Patient denied any chest pain or shortness of breath. Still having diarrhea. C. difficile toxin will be sent. Patient is being current on midodrine and antibiotics. Also on Lasix and Aldactone. Current medications reviewed. Objective - Vital Signs Vital signs: Vital Signs Temp 99.3 F 01/09/22 20:13 Pulse 86 01/09/22 20:13 Resp 16 01/09/22 20:13 BP 104/69 01/09/22 20:13 Pulse Ox 96 01/09/22 20:13 Intake & Output 01/09/22 01/09/22 01/10/22 06:59 18:59 06:59 Intake Total 100 100 Balance 100 100 Intake: Intake, IV Titration 100 100 Amount Piperacillin-Tazobactam 3 100 100 .375 gm In Sodium Chloride 0.9% 100 ml @ 25 mls/hr IVPB Q8H [facility] Rx#: [id number] Other: Voiding Method Toilet Bedpan Diaper # Voids 6 5 # Bowel Movements 1 2 - Exam - Exam Gen: cachexic, sitting up in bed, no acute distress HEENT: normocephalic, atraumatic, NG tube present Neck: supple, no JVD CV: RRR, no murmur Lungs: Normal effort, clear thoughout Abd; Soft nontender. Surgical site intact. Mild distention with ascites. Bowel sounds present. Neuro: alert and oriented x3, no focal deficit Skin: warm and dry - Labs CBC & Chem 7: 01/08/22 06:31 01/08/22 06:31 Labs: Abnormal Lab Results - Last 24 Hours (Table) 01/09/22 Range/Units 16:59 POC Glucose (mg/dL) 71 L (75-99) mg/dL Assessment and Plan Assessment: Incarcerated umbilical hernia status post repair, management per surgery.Surgical wound culture showed VRE. Recurrent Ascites Alcoholic cirrhosis, continues on Aldactone, Lasix as per GI Hepatorenal syndrome, hypotension, continues on Midodrin with close monitoring of blood pressure, may require albumin. Hypoalbuminemia Hypokalemia, potassium replacement ordered. Magnesium level pending. Increase activity as tolerated. PPI for GI prophylaxis, Lovenox for DVT prophylaxis in place. replace elctrolytes/. Aggressive pulmonary toileting with incentive spirometer reinforced. Lovenox will be held tomorrow for paracentesis.. ID consult due to VRE wound cx Time with Patient: Greater than 30
[2022-01-10] MEDS: PIPERACILLIN-TAZOBACTAM 3.375 GM in SODIUM CHLORIDE 0.9% 100 ML IVPB SCH ×2 (00:55→08:23)
[2022-01-10] MEDS: HYDROcodone/APAP 5-325MG 1 EACH TAB PO PRN ×2 (00:55→05:10)
[2022-01-10] MEDS: LEVOTHYROXINE 50 MCG TAB PO SCH (05:10)
[2022-01-10 07:03] LABS: Glucose,Whole Blood 88 mg/dL (75-99)
[2022-01-10] MEDS: ENOXAPARIN 40 MG/0.4 ML SYRINGE SQ SCH (08:02)
[2022-01-10] MEDS: SPIRONOLACTONE 25 MG TAB PO SCH ×2 (08:22→16:54)
[2022-01-10] MEDS: MIDODRINE 5 MG TAB PO SCH ×3 (08:22→16:55)
[2022-01-10] MEDS: PANTOPRAZOLE 40 MG TABLET PO SCH (08:22)
[2022-01-10] MEDS: FOLIC ACID 1 MG TAB PO SCH ×2 (08:23→16:54)
[2022-01-10] MEDS: FUROSEMIDE 40 MG TAB PO SCH ×2 (08:23→16:55)
[2022-01-10] MEDS: MAGNESIUM OXIDE 400 MG TAB PO SCH ×2 (08:23→16:54)
[2022-01-10] MEDS: MULTIVITAMINS, THERA 1 EACH TAB PO SCH (08:23)
[2022-01-10 09:31] LABS: Basophils # (A) 0.1 k/uL (0-0.2); Basophils % (A) 1 %; Eosinophils # (A) 0.2 k/uL (0-0.7); Eosinophils % (A) 1 %; HCT 35.3 % (34.0-46.0); HGB 11.3 gm/dL (11.4-16.0); Lymphocytes # (A) 1.7 k/uL (1.0-4.8); Lymphocytes % (A) 15 %; MCH 30.6 pg (25.0-35.0); MCHC 31.9 g/dL (31.0-37.0); Mean Platelet Volume 8.7; Monocytes # (A) 0.7 k/uL (0-1.0); Monocytes % (A) 6 %; Neutrophils # (A) 8.3 k/uL (1.3-7.7); Neutrophils % (A) 75 %; Platelet Count 377 k/uL (150-450); RBC 3.68 m/uL (3.80-5.40); RDW 14.8 % (11.5-15.5); WBC 11.1 k/uL (3.8-10.6)
[2022-01-10 09:36] LABS: INR 1.1 (<1.2); Prothrombin Time 12.1 sec (9.0-12.0)
[2022-01-10 11:11] LABS: African American GFR (CKD) 103.2 (60.0-200.0); Albumin 2.4 g/dL (3.8-4.9); Albumin/Globulin Ratio 1.14 (1.60-3.17); Anion Gap 9.1 mmol/L (10.00-18.00); BUN/Creat Ratio 14.43 Ratio (12.00-20.00); Blood Urea Nitrogen 10.1 mg/dL (9.0-27.0); Carbon Dioxide 31.9 mmol/L (20.0-27.5); Globulin 2.1 g/dL (1.6-3.3); Potassium 3.5 mmol/L (3.5-5.5); Total Bilirubin 0.4 mg/dL (0.30-1.20); Total Protein 4.5 g/dL (6.2-8.2)
[2022-01-10] MEDS ORDERED: POTASSIUM CHLORIDE ER 20 MEQ TAB.ER PO STA (11:31)
--- NOTE | 2022-01-10 11:33 | P.PN ---
Subjective Progress Note Date: 01/10/22 CHIEF COMPLAINT: Incarcerated incisional hernia HISTORY OF PRESENT ILLNESS: Patient is status post repair of strangulated incisional hernia, small bowel resection and aspiration of 4.5 L of ascites for strangulated incisional hernia with necrotic small bowel on 12/29/21. Patient does complain of abdominal distention and some abdominal pain at the GLADYS drain site. She is scheduled for another paracentesis today for further evaluation of her ascites. Her culture from the incisional drainage did grow VRE. Medicine service has changed antibiotics to daptomycin and has consulted infectious disease. Patient is afebrile. WBC is up at 11.1. Patient reports that she is having multiple thought bowel movements but they are formed. She denies any nausea or vomiting. She reports that she is tolerating regular diet. Sodium 136 potassium 3.5 creatinine 0.7 albumin 2.4 INR 1.1 Patient seen and examined with Dr. wong PHYSICAL EXAM: VITAL SIGNS: Reviewed. GENERAL: Well-developed in no acute distress. HEENT: No sclera icterus. Extraocular movements grossly intact. Moist buccal mucosa. Head is atraumatic, normocephalic. ABDOMEN: Abdomen distended with evidence of ascites. Purulent yellowish drainage noted on the incisional dressing. GLADYS drain with 40 mEq of serosanguineous output NEUROLOGIC: Alert and oriented. Cranial nerves II through XII grossly intact. ASSESSMENT: 1. Strangulated incisional hernia with necrotic bowel status post repair of strangulated incisional hernia, small bowel resection and aspiration of 4.5 L of ascites 2. History of Liver cirrhosis with ascites status post paracentesis 3. Hypokalemia 4. Hypoglycemia improved 5. Hyponatremia improved 6. Incisional drainage growing VRE PLAN: -Patient scheduled for paracentesis today for evaluation of ascites -Continue regular diet -Replace potassium -Antibiotics per infectious disease. -Continue pain medication as needed -Encourage incentive spirometer use -Encourage patient to increase activity level -Patient will require ECF at discharge. Possible discharge tomorrow. -DVT prophylaxis Lovenox and GI prophylaxis Protonix Physician Pediatric Surgeon note has been reviewed by physician. Signing provider agrees with the documented findings, assessment, and plan of care. Objective - Vital Signs Vital signs: Vital Signs Temp 97.7 F 01/10/22 04:43 Pulse 86 01/10/22 08:32 Resp 17 01/10/22 08:25 BP 97/67 01/10/22 08:32 Pulse Ox 95 01/10/22 04:43 Intake & Output 01/09/22 01/10/22 01/10/22 18:59 06:59 18:59 Intake Total 100 100 360 Output Total 40 Balance 100 100 320 Intake: Intake, IV Titration 100 100 Amount Piperacillin-Tazobactam 3 100 100 .375 gm In Sodium Chloride 0.9% 100 ml @ 25 mls/hr IVPB Q8H [facility] Rx#: [id number] Oral 360 Output: Drainage 40 Abdomen 40 Other: Voiding Method Toilet Toilet Bedpan Bedpan Diaper Diaper # Voids 5 5 # Bowel Movements 2 - Labs CBC & Chem 7: 01/10/22 07:34 01/10/22 07:34 Labs: Abnormal Lab Results - Last 24 Hours (Table) 01/09/22 01/10/22 01/10/22 Range/Units 16:59 07:34 07:34 WBC 11.1 H (3.8-10.6) k/uL RBC 3.68 L (3.80-5.40) m/uL Hgb 11.3 L (11.4-16.0) gm/dL Neutrophils # 8.3 H (1.3-7.7) k/uL PT (9.0-12.0) sec Chloride 95 L (96-109) mmol/L Carbon Dioxide 31.9 H (20.0-27.5) mmol/L Anion Gap 9.10 L (10.00-18.00) mmol/L POC Glucose (mg/dL) 71 L (75-99) mg/dL Calcium 8.0 L (8.7-10.3) mg/dL Total Protein 4.5 L (6.2-8.2) g/dL Albumin 2.4 L (3.8-4.9) g/dL Albumin/Globulin Ratio 1.14 L (1.60-3.17) g/dL 01/10/22 Range/Units 07:34 WBC (3.8-10.6) k/uL RBC (3.80-5.40) m/uL Hgb (11.4-16.0) gm/dL Neutrophils # (1.3-7.7) k/uL PT 12.1 H (9.0-12.0) sec Chloride (96-109) mmol/L Carbon Dioxide (20.0-27.5) mmol/L Anion Gap (10.00-18.00) mmol/L POC Glucose (mg/dL) (75-99) mg/dL Calcium (8.7-10.3) mg/dL Total Protein (6.2-8.2) g/dL Albumin (3.8-4.9) g/dL Albumin/Globulin Ratio (1.60-3.17) g/dL Microbiology - Last 24 Hours (Table) 01/06/22 10:41 Anaerobic Culture - Final Incision
--- NOTE | 2022-01-10 13:36 | US ---
Ultrasound-guided paracentesis. DATE OF EXAM: 01/10/2022 CLINICAL HISTORY: Ascites The procedure was discussed with the patient. The risks, complications, benefits, and alternatives we re discussed and any questions were answered. Informed consent was obtained. The patient was placed s upine on the ultrasound table and prepped and draped in the usual sterile fashion. All elements of maximal barrier technique were utilized. Under ultrasound guidance, access into the left lower quadrant was obtained, via the paracentesis catheter system and direct ultrasound guidance . Approximately 2.3 liters of straw-colored fluid was removed. The patient was stable throughout the pr ocedure and remained stable upon discharge from Department of Radiology. IMPRESSION: Successful paracentesis under ultrasound guidance.
--- NOTE | 2022-01-10 13:43 | P.PN ---
Subjective Progress Note Date: 01/10/22 Principal diagnosis: Incarcerated hernia, cirrhosis of liver Patient is seen and examined as follow up for cirrhosis of liver with ascites. SHe was admitted with abdominal pain and incarcerated umbilical hernia. She underwent repair of strangulated incisional hernia with small bowel resection on 12/29/2021. Overall she's doing well she states. She has been passing gas and having bowel movements. States bowel movements have been soft. No nausea or vomiting. Tolerating her diet. She did undergo a paracentesis on 01/04/2022 with removal of 1.2 L of fluid. Patient had an abdominal wound culture that showed Enterococcus faecium VRE currently on daptomycin. Infectious disease on consult. Objective - Vital Signs Vital signs: Vital Signs Temp 97.7 F 01/10/22 04:43 Pulse 86 01/10/22 08:32 Resp 17 01/10/22 08:25 BP 97/67 01/10/22 08:32 Pulse Ox 95 01/10/22 04:43 Intake & Output 01/09/22 01/10/22 01/10/22 18:59 06:59 18:59 Intake Total 100 100 360 Output Total 40 Balance 100 100 320 Intake: Intake, IV Titration 100 100 Amount Piperacillin-Tazobactam 3 100 100 .375 gm In Sodium Chloride 0.9% 100 ml @ 25 mls/hr IVPB Q8H [facility] Rx#: [id number] Oral 360 Output: Drainage 40 Abdomen 40 Other: Voiding Method Toilet Toilet Bedpan Bedpan Diaper Diaper # Voids 5 5 # Bowel Movements 2 - Exam General appearance: The patient is alert, oriented, appears in no acute distress. HET: Head is normocephalic and atraumatic. Conjunctiva pink. Sclera anicteric. Neck: Supple without lymphadenopathy. Abdomen: Soft, mild tenderness, incision with garret well approximated, clean dry and intact. Positive bowel sounds. No guarding or rigidity. GLADYS drain with serosanguineous drainage. Extremities: Normal skin color and turgor. No pedal edema Skin: No rashes, no jaundice Neurological: No focal deficits. Alert and oriented x3. - Labs CBC & Chem 7: 01/10/22 07:34 01/10/22 07:34 Labs: Abnormal Lab Results - Last 24 Hours (Table) 05/10/0201/10/22 01/10/22 Range/Units 16:59 07:34 07:34 WBC 11.1 H (3.8-10.6) k/uL RBC 3.68 L (3.80-5.40) m/uL Hgb 11.3 L (11.4-16.0) gm/dL Neutrophils # 8.3 H (1.3-7.7) k/uL PT 12.1 H (9.0-12.0) sec POC Glucose (mg/dL) 71 L (75-99) mg/dL Assessment and Plan (1) Alcoholic cirrhosis of liver with ascites Narrative/Plan: 58-year-old female who presented to the emergency department with abdominal pain and umbilical hernia. She has a long-standing history of alcohol abuse with decompensated alcoholic cirrhosis of the liver with ascites. She was previously getting paracentesis every 2-3 weeks, diuretics were adjusted and patient is now having paracentesis every 4-6 weeks. This paracentesis around November 25. Patirere salinas presented to the emergency room, CT of the abdomen and pelvis showed an incarcerated umbilical hernia with concerns for ischemia/early infarction. She has been seen by Dr. Haro and is shceudled for surgery this afternoon. Patient is high risk for abdominal surgery due to her c versus a liver and ascites. This was discussed with patient. She verbalized understanding. Gastroenterology will continue to follow. Current Visit: Yes Status: Acute Code(s): K70.31 - ALCOHOLIC CIRRHOSIS OF LIVER WITH ASCITES SNOMED Code(s): 313660452 (2) Incarcerated hernia Narrative/Plan: Patient admitted with incarcerated umbilical hernia with reported bowel obstruction was suspected ischemic/early infarction. Patient is being followed by general surgery. Status post surgical repair of stangulated incisional hernia with small bowel resection. Current Visit: Yes Status: Acute Code(s): K46.0 - UNSP ABDOMINAL HERNIA WITH OBSTRUCTION, WITHOUT GANGRENE SNOMED Code(s): 05206563 (3) Hypokalemia Narrative/Plan: resolved Current Visit: No Status: Acute Code(s): E87.6 - HYPOKALEMIA SNOMED Code(s): 72735173 (4) Enterococcus, vancomycin-resistant Narrative/Plan: Patient currently on daptomycin. Infectious disease on consult. Current Visit: Yes Status: Acute Code(s): A49.1 - STREPTOCOCCAL INFECTION, UNSPECIFIED SITE; Z16.21 - RESISTANCE TO VANCOMYCIN SNOMED Code(s): 543554334 Plan: 1. Continue symptomatic and supportive care 2. CMP ordered 3. Continue IV antibiotics per recommendations from infectious disease 4. Patient is scheduled for paracentesis 5. Continue spironolactone 50 mg twice a day and Lasix 40 mg twice a day Thank you for this consultation. Dr. John Burrows I agree with the dictator's note, documented as a scribe by Sheryl Linares.
--- NOTE | 2022-01-10 15:10 | P.PN ---
Subjective Progress Note Date: 01/10/22 Shyann Wynn is a 66 yo F with PMH of alcoholic cirrhosis with ascites, GERD, hypothyroidism who is admitted with incarcerated umbilical hernia. She is POD#1, has NG tube in place with bilious output, reports aching abdominal pain. She denies nausea. Pt hypotensive postop which is improved after IV fluids and resuming her home midodrine. WBC today 14k, Hgb 11, Cr 0.9, albumin 2.3. She did have 4.5 L ascitic fluid removed with surgery yesterday. 12/31/2021 afebrile, T-max 99.6, WBC decreased to 12.18.Borderline hypotension on Midodrin. Mean arterial pressures high 60s to mid 70s. Minimal NG output. Denies abdominal pain. Denies nausea ,vomiting. Complains of irritation of throat secondary to NG tube. Potassium 3.3. Renal function stable. Urine culture negative. 01/03/2022 tolerating full liquid diet, denies nausea or vomiting . Positive bowel movement.continues on Zosyn.shortness of breath last night, requiring 2 L nasal cannula, currently maintaining O2 sats in the high 90s. Paracentesis pending. Hemoglobin pending. Maintained on Midodrin ,blood pressure improved. Sitting up at side of bed, minimal ambulation. Receiving potassium supplementation for potassium level 3.3, magnesium level pending. Midline placement pending. Blood sugars stable. Sodium 1:30, recent albumin 2.3. Denies chest pain, palpitations. 01/04/2022 sitting up in chair, complaining of incisional tenderness, reports increased shortness of breath during the night, awaiting a paracentesis. Received pre-albumin. Sodium improved, 135. Receiving potassium and magnesium supplements for potassium 2.8, magnesium 1.4. Denies chest pain, palpitations. 01/05/2022 completed paracentesis yesterday with limited 0.2 L of serous fluid drained. Tolerated procedure well. Denies chest pain, palpitations or shortness of breath. Patient is maintaining O2 sats of 100% on 2 L nasal cannula which can be titrated off. Passing flatus. Blood sugar decrease this morning is 68, currently in the high 90s, tolerating full liquid diet. Denies nausea or vomiting. Denies pain, reports surgical tenderness. Denies chest pain, palpitations. Significant weakness and agreeable to subacute rehab. at discharge. Maintained on Zosyn. Afebrile. Electrolytes within normal limits, receiving magnesium supplementation per magnesium level I.7. Renal function stable. 01/06/2022 positive bowel movement Monday, passing flatus yesterday and today. Complains of being up all night secondary to diuretics administered late- rescheduled. Proximal incision with brownish drainage. T-max 99, WBC 7.74. Consuming 75% of regular diet with no nausea or vomiting. Blood sugars controlled. Potassium 3.5 ,Magnesium 1.7. Oxygen has been weaned off, maintaining O2 sats in the high 90s on room air. 01/07/2022 sitting up in chair, reporting shortness of breath, negative congestion or cough, reporting nasal congestion. Denies chest pain, palpitations. T-max 99.2, normal WBC. Decreasing surgical incisional drainage- Wound culture pending. Maintained on Zosyn. Tolerating diet intake with no nausea or vomiting. Positive bowel movement this morning. 01-10-22 repeat paracentesis pending. Sitting up in chair, T-max 99.3. Wound culture reported enterococcus faecium VRE. Antibiotics adjusted to daptomycin. Denies surgical pain, reports pain only at GLADYS drain site. Labs pending. Denies chest pain, palpitations or shortness of breath. Objective - Vital Signs Vital signs: Vital Signs Temp 98.1 F 01/10/22 12:45 Pulse 70 01/10/22 12:56 Resp 20 01/10/22 12:56 BP 102/63 01/10/22 12:56 Pulse Ox 98 01/10/22 12:56 Intake & Output 01/09/22 01/10/22 01/10/22 18:59 06:59 18:59 Intake Total 100 100 720 Output Total 40 Balance 100 100 680 Intake: Intake, IV Titration 100 100 Amount Piperacillin-Tazobactam 3 100 100 .375 gm In Sodium Chloride 0.9% 100 ml @ 25 mls/hr IVPB Q8H [facility] Rx#: [id number] Oral 720 Output: Drainage 40 Abdomen 40 Other: Voiding Method Toilet Toilet Bedpan Bedpan Diaper Diaper # Voids 5 5 # Bowel Movements 2 - Exam Gen: sitting up in chair, no acute distress HEENT: normocephalic, atraumatic Neck: supple, no JVD CV: RRR, no murmur Lungs: Normal effort, clear thoughout Abd; soft, distended, status post surgery, surgical site clean, dry , intact with garret , GLADYS with serosanguineous drainage, + bowel sounds Neuro: alert and oriented x3, no focal deficits Skin: warm and dry - Labs CBC & Chem 7: 01/10/22 07:34 01/10/22 07:34 Labs: Abnormal Lab Results - Last 24 Hours (Table) 01/09/22 01/10/22 01/10/22 Range/Units 16:59 07:34 07:34 WBC 11.1 H (3.8-10.6) k/uL RBC 3.68 L (3.80-5.40) m/uL Hgb 11.3 L (11.4-16.0) gm/dL Neutrophils # 8.3 H (1.3-7.7) k/uL PT (9.0-12.0) sec Chloride 95 L (96-109) mmol/L Carbon Dioxide 31.9 H (20.0-27.5) mmol/L Anion Gap 9.10 L (10.00-18.00) mmol/L POC Glucose (mg/dL) 71 L (75-99) mg/dL Calcium 8.0 L (8.7-10.3) mg/dL Total Protein 4.5 L (6.2-8.2) g/dL Albumin 2.4 L (3.8-4.9) g/dL Albumin/Globulin Ratio 1.14 L (1.60-3.17) g/dL 01/10/22 Range/Units 07:34 WBC (3.8-10.6) k/uL RBC (3.80-5.40) m/uL Hgb (11.4-16.0) gm/dL Neutrophils # (1.3-7.7) k/uL PT 12.1 H (9.0-12.0) sec Chloride (96-109) mmol/L Carbon Dioxide (20.0-27.5) mmol/L Anion Gap (10.00-18.00) mmol/L POC Glucose (mg/dL) (75-99) mg/dL Calcium (8.7-10.3) mg/dL Total Protein (6.2-8.2) g/dL Albumin (3.8-4.9) g/dL Albumin/Globulin Ratio (1.60-3.17) g/dL Microbiology - Last 24 Hours (Table) 01/06/22 10:41 Anaerobic Culture - Final Incision Assessment and Plan Assessment: Incarcerated umbilical hernia status post repair, management per surgery. Abdominal wound culture reporting enterococcus VRE. Alcoholic cirrhosis, ascites, status post paracentesis. Hepatorenal syndrome, hypotension, continues on Midodrin Hyponatremia, improving Hypoalbuminemia Hypokalemia Hypomagnesemia Midline placed 01/04/2022 Increase activity as tolerated. Repeat Paracentesis ordered, hold a.m. Lovenox. Antibiotics as per ID. Maintain aggressive pulmonary toileting with incentive spirometer reinforced. Prognosis guarded given multiple complex medical issues. Subacute rehab at discharge. The impression and plan of care has been dictated as directed. : I performed a history and examination of this patient, discussed the same with the dictator. I agree with the dictator's note ,documented as a scribe. Any additional findings or plans will be noted.
[2022-01-10] MEDS: THIAMINE 100 MG TAB PO SCH (16:54)
[2022-01-10 17:08] LABS: Glucose,Whole Blood 77 mg/dL (75-99)
[2022-01-10 20:28] LABS: Glucose,Whole Blood 89 mg/dL (75-99)
[2022-01-10] MEDS: LORATADINE 10 MG TAB PO SCH (21:09)
--- NOTE | 2022-01-10 23:14 | P.CONS ---
History of Present Illness - Reason for Consult Consult date: 01/10/22 VRE abd wound infection Requesting physician: Rock Leonard - Chief Complaint drainage from abd incision x few days - History of Present Illness History of Present Illness : Patient is a 66-year-old female presented to the hospital about 2 weeks ago on 12/29/2021 for evaluation of abdominal pain constipation and vomiting in this patient who did have a large hernia patient on presentation to the hospital did have a CT of abdominal pelvis finding consistent with acute mechanical high-grade small bowel obstruction and possible umbilical hernia patient was evaluated by general surgery and she was taken to the OR that evening patient was noticed to have incarcerated incisional hernia, strangulated incisional hernia with necrotic small bowel patient did have repair of the hernia with a small bowel resection aspiration of 4.5 L of ascites in this patient who did have a history of alcoholic cirrhosis patient has been here in the hospital for the last 2 weeks and no fever has , Patient did have a fever on the day of presentation to the hospital but no fe kendall have been recorded subsequently patient did have white count of 17.7 on admission and the white count subsequently normalized on 01/01/2022 however has been slowly jumping up and is up to 11.1 creatinine has been normal and the patient has been treated with Zosyn apparently the patient was noticed to have some drainage from her abdominal incision which was cultured on 01/06/2022 with a culture subsequently finalized with VRE on 01/08/2022 infectious disease was consulted last evening for further management of her by therapy as of this morning antibiotic has been switched over to daptomycin and Zosyn has been discontinued, patient denies having any worsening abdominal pain she did mention there was a lot of drainage when the nurse practitioner from surgical team remove the dressings afterwards incision was clean and no further drainage has been noticed patient also have paracentesis completed today unfortunately no cultures were done patient denies having headache no URI symptoms no chest pain shortness of breath or cough no diarrhea Review of system: CONSTITUTIONAL: Positive for weakness denies fever. EYES: No complaint. ENT: No complaint. RESPIRATORY: No complaint. CARDIOVASCULAR: No complaint. GENITOURINARY: No complaint. GASTROINTESTINAL: As per history of present illness . MUSCULOSKELETAL: No complaint. INTEGUMENTARY : No complaint. PSYCHOLOGIC: No complaint. ENDOCRINE: No complaint. NEUROLOGIC: No complaint. Past medical history : Reviewed, documented below Past surgical history : Reviewed, documented below Social history: Reviewed, documented below Medications: Reviewed, as documented below EXAMINATION: Vital sigans= Reviewed and documented below GENERAL DESCRIPTION: Elderly female lying in bed, no distress. No tachypnea or accessory muscle of respiration use. HEENT: Shows Pallor , no scleral icterus. Oral mucous membrane is dry. NECK: Trachea central, no thyromegaly. LUNGS: Unlabored breathing. Decreased breath sound at the base. No wheeze or crackle. HEART: S1, S2, regular rate and rhythm. ABDOMEN: Soft mild distention, midline incision is intact and no significant redness or drainage was noticed GLADYS drain has mostly bloodstained secretion EXTREMITIES: No edema feet SKIN: No rash, no masses palpable. NEUROLOGICAL: The patient is awake, alert, oriented x3, mood and affect normal. LABS AND RADIOLOGY: Reviewed results see below Assessment : Patient with a positive culture from her abdominal incision and this patient presented to hospital about 12 days ago for a bowel obstruction secondary to strangulated hernia s/p laparotomy small bowel resection and repair of the hernia in this patient currently do not have any fever mild elevated white count and a question of possible superficial infection, unfortunately she did have paracentesis completed today had no cultures were done to see if there was any evidence of any deeper infection Plan: 1-we will check her blood cultures and inflammatory marker 2-continue with the daptomycin 3-dry protective dressing to the abdominal incision We will follow on clinical condition and cultures to further adjust medication if needed Thank you for this consultation we will follow the patient along with you Past Medical History Past Medical History: Chest Pain / Angina, CVA/TIA, Fibromyalgia, GERD/Reflux, Osteoarthritis (OA) Additional Past Medical History / Comment(s): Abdominal hernia, liver cirrhosis/past etoh /ascities with paracentesis every 6 weeks, fluid retention from waist down, TIA x3, hypotension, past dumping syndrome after bariatric surgery, stress urine incontinence, UTI, hemorrhoids. History of Any Multi-Drug Resistant Organisms: None Reported Past Surgical History: Bariatric Surgery, Cholecystectomy, Hysterectomy, Orthopedic Surgery, Tubal Ligation Additional Past Surgical History / Comment(s): HX GASTRIC BYPASS, PAIN CLINIC PROCEDURE, c3-7 fusions, colonoscopy. Past Anesthesia/Blood Transfusion Reactions: No Reported Reaction Additional Past Anesthesia/Blood Transfusion Reaction / Comm: REQUIRE ABOVE AVERAGE LIDOCAINE DOSE. Smoking Status: Former smoker - Past Family History Father Family Medical History: Diabetes Mellitus, Myocardial Infarction ([place]) Additional Family Medical History / Comment(s): Father is . Mother Family Medical History: Cancer, Myocardial Infarction ([place]) Additional Family Medical History / Comment(s): Breast cancer. Mother is living. Medications and Allergies Home Medications Medication Instructions Recorded Confirmed Type Multivitamin [Multivitamins Adult 1 tab PO DAILY 03/15/21 12/29/21 History Gummies] Vitamin B Complex 1 cap PO DAILY@1700 06/19/21 12/29/21 History rOPINIRole HCL [Requip] 0.5 mg PO HS PRN 06/19/21 12/29/21 History Pantoprazole [Protonix] 40 mg PO AC-BRKFST tab 06/24/21 12/29/21 Rx Albuterol Sulfate [Ventolin HFA] 1 - 2 puff INHALATION RT-DAILY PRN 12/29/21 12/29/21 History Folic Acid 0.4 mg PO BID@0900,1700 12/29/21 12/29/21 History Furosemide [Lasix] 80 mg PO DAILY 12/29/21 12/29/21 History Levothyroxine Sodium [Synthroid] 50 mcg PO AC-BRKFST 12/29/21 12/29/21 History Magnesium Oxide [Mag-Ox] 250 mg PO BID@0900,1700 12/29/21 12/29/21 History Midodrine [ProAmatine] 5 mg PO AC-TID@07,11,1630 12/29/21 12/29/21 History Potassium Chloride ER [K-Dur 20] 10 meq PO TID 12/29/21 12/29/21 History Sennosides [Senna] 8.6 mg PO BID 12/29/21 12/29/21 History Spironolactone [Aldactone] 100 mg PO DAILY 12/29/21 12/29/21 History Thiamine [Vitamin B-1] 100 mg PO DAILY@1700 12/29/21 12/29/21 History Allergies Allergy/AdvReac Type Severity Reaction Status Date / Time furosemide [From Lasix] AdvReac Causes BP Verified 12/29/21 16:20 to drop too quickly, still takes at home Gadolinium-Containing AdvReac Flushing Verified 12/29/21 16:20 Contrast Medi Physical Exam Vitals: Vital Signs Temp Pulse Resp BP Pulse Ox 01/10/22 12:00 76 18 98/57 98 01/10/22 11:48 78 18 105/69 99 01/10/22 11:45 75 18 96/67 99 01/10/22 11:28 78 18 100/68 99 01/10/22 11:05 72 18 112/78 99 01/10/22 08:32 86 97/67 01/10/22 08:25 86 17 01/10/22 04:43 97.7 F 94 17 101/73 95 01/09/22 20:13 99.3 F 86 16 104/69 96 Intake and Output 01/09/22 01/10/22 01/10/22 22:59 06:59 14:59 Intake Total 100 100 360 Output Total 40 Balance 100 100 320 Intake: Intake, IV Titration 100 100 Amount Piperacillin-Tazobactam 3 100 100 .375 gm In Sodium Chloride 0.9% 100 ml @ 25 mls/hr IVPB Q8H [facility] Rx#: [id number] Oral 360 Output: Drainage 40 Abdomen 40 Other: Voiding Method Toilet Bedpan Diaper # Voids 5 5 # Bowel Movements 2 Results CBC & Chem 7: 01/10/22 07:34 01/10/22 07:34 Labs: Abnormal Lab Results - Last 24 Hours (Table) 01/09/22 01/10/22 01/10/22 Range/Units 16:59 07:34 07:34 WBC 11.1 H (3.8-10.6) k/uL RBC 3.68 L (3.80-5.40) m/uL Hgb 11.3 L (11.4-16.0) gm/dL Neutrophils # 8.3 H (1.3-7.7) k/uL PT (9.0-12.0) sec Chloride 95 L (96-109) mmol/L Carbon Dioxide 31.9 H (20.0-27.5) mmol/L Anion Gap 9.10 L (10.00-18.00) mmol/L POC Glucose (mg/dL) 71 L (75-99) mg/dL Calcium 8.0 L (8.7-10.3) mg/dL Total Protein 4.5 L (6.2-8.2) g/dL Albumin 2.4 L (3.8-4.9) g/dL Albumin/Globulin Ratio 1.14 L (1.60-3.17) g/dL 01/10/22 Range/Units 07:34 WBC (3.8-10.6) k/uL RBC (3.80-5.40) m/uL Hgb (11.4-16.0) gm/dL Neutrophils # (1.3-7.7) k/uL PT 12.1 H (9.0-12.0) sec Chloride (96-109) mmol/L Carbon Dioxide (20.0-27.5) mmol/L Anion Gap (10.00-18.00) mmol/L POC Glucose (mg/dL) (75-99) mg/dL Calcium (8.7-10.3) mg/dL Total Protein (6.2-8.2) g/dL Albumin (3.8-4.9) g/dL Albumin/Globulin Ratio (1.60-3.17) g/dL Microbiology - Last 24 Hours (Table) 01/06/22 10:41 Anaerobic Culture - Final Incision
[2022-01-11] MEDS: LEVOTHYROXINE 50 MCG TAB PO SCH (06:07)
[2022-01-11 07:35] LABS: Glucose,Whole Blood 88 mg/dL (75-99)
[2022-01-11] MEDS: ENOXAPARIN 40 MG/0.4 ML SYRINGE SQ SCH (07:58)
[2022-01-11] MEDS: MULTIVITAMINS, THERA 1 EACH TAB PO SCH (07:59)
[2022-01-11] MEDS: FOLIC ACID 1 MG TAB PO SCH ×2 (07:59→16:14)
[2022-01-11] MEDS: SPIRONOLACTONE 25 MG TAB PO SCH ×2 (07:59→16:17)
[2022-01-11] MEDS: PANTOPRAZOLE 40 MG TABLET PO SCH (07:59)
[2022-01-11] MEDS: MAGNESIUM OXIDE 400 MG TAB PO SCH ×2 (07:59→16:14)
[2022-01-11] MEDS: FUROSEMIDE 40 MG TAB PO SCH ×2 (07:59→16:17)
[2022-01-11] MEDS: MIDODRINE 5 MG TAB PO SCH ×3 (08:13→16:17)
[2022-01-11 10:24] LABS: Basophils # (A) 0.06 X 10*3/uL (0.00-0.10); Basophils % (A) 0.5 %; Eosinophils # (A) 0.13 X 10*3/uL (0.04-0.35); HCT 31.9 % (37.2-46.3); HGB 10.4 g/dL (12.0-15.0); Immature Grans, Automated 0.5 %; Lymphocytes # (A) 2.19 X 10*3/uL (0.90-5.00); Lymphocytes % (A) 16.9 %; MCH 29.8 pg (27.0-32.0); MCHC 32.6 g/dL (32.0-37.0); MCV 91.4 fL (80.0-97.0); Mean Platelet Volume 10.8 fL (9.5-12.2); Monocytes # (A) 1.25 X 10*3/uL (0.20-1.00); Monocytes % (A) 9.7 %; NRBC Per 100 WBC 0 /100 WBCS (0.0-0.0); Neutrophils # (A) 9.23 X 10*3/uL (1.80-7.70); Neutrophils % (A) 71.4 %; Platelet Count 367 X 10*3/uL (140-440); RBC 3.49 X 10*6/uL (4.10-5.20); RDW 15.7 % (11.5-14.5); WBC 12.93 X 10*3/uL (4.50-10.00)
[2022-01-11 10:30] LABS: African American GFR (CKD) 104.6 (60.0-200.0); BUN/Creat Ratio 16.37 Ratio (12.00-20.00); Calcium 8.1 mg/dL (8.7-10.3); Carbon Dioxide 33.9 mmol/L (20.0-27.5); Non-African American GFR(CKD) 90.2 (60.0-200.0); Potassium 4.3 mmol/L (3.5-5.5)
[2022-01-11 12:24] LABS: Glucose,Whole Blood 110 mg/dL (75-99)
--- NOTE | 2022-01-11 13:26 | P.PN ---
Subjective Progress Note Date: 01/11/22 CHIEF COMPLAINT: Incarcerated incisional hernia HISTORY OF PRESENT ILLNESS: Patient is status post repair of strangulated incisional hernia, small bowel resection and aspiration of 4.5 L of ascites for strangulated incisional hernia with necrotic small bowel on 12/29/21. Patient is sitting up at bedside chair. She underwent paracentesis yesterday with 2.3 L removed. She reports having bowel movements. She does complain of upset stomach this morning. GLADYS drain with 60 mL of serosanguineous output. Her incisional culture had grown VRE. Medicine has added daptomycin. Patient seen by infectious disease. They've ordered blood cultures which are pending. Patient tolerating regular diet. Afebrile. WBC is up at 12.93 hemoglobin 10.4 platelets 367 sodium 137 potassium 4.3 creatinine 0.7 Patient seen and examined with Dr. wong PHYSICAL EXAM: VITAL SIGNS: Reviewed. GENERAL: Well-developed in no acute distress. HEENT: No sclera icterus. Extraocular movements grossly intact. Moist buccal mucosa. Head is atraumatic, normocephalic. ABDOMEN: Abdomen soft. Less distended. NEUROLOGIC: Alert and oriented. Cranial nerves II through XII grossly intact. ASSESSMENT: 1. Strangulated incisional hernia with necrotic bowel status post repair of strangulated incisional hernia, small bowel resection and aspiration of 4.5 L of ascites 2. History of Liver cirrhosis with ascites status post paracentesis 3. Hypokalemia improved 4. Hypoglycemia improved 5. Hyponatremia improved 6. Incisional drainage growing VRE PLAN: -Patient scheduled for paracentesis today for evaluation of ascites -Continue regular diet -Antibiotics per infectious disease. Awaiting infectious disease discharge recommendations -Continue pain medication as needed -Encourage incentive spirometer use -Encourage patient to increase activity level -Patient will require ECF at discharge -DVT prophylaxis Lovenox and GI prophylaxis Protonix Physician Racing Manager note has been reviewed by physician. Signing provider agrees with the documented findings, assessment, and plan of care. Objective - Vital Signs Vital signs: Vital Signs Temp 98.3 F 01/11/22 04:48 Pulse 80 01/11/22 09:00 Resp 16 01/11/22 08:30 BP 104/66 01/11/22 09:00 Pulse Ox 93 L 01/11/22 04:48 Intake & Output 01/10/22 01/11/22 01/11/22 18:59 06:59 18:59 Intake Total 1630 1080 Output Total 40 60 Balance 1590 1020 Intake: Oral 1630 1080 Output: Drainage 40 60 Abdomen 40 60 Other: Voiding Method Toilet Toilet Toilet Bedpan Diaper Diaper Diaper # Voids 3 3 1 # Bowel Movements 1 - Labs CBC & Chem 7: 01/11/22 08:00 01/11/22 08:00 Labs: Abnormal Lab Results - Last 24 Hours (Table) 01/11/22 01/11/22 01/11/22 Range/Units 08:00 08:00 12:22 WBC 12.93 H (4.50-10.00) X 10*3/uL RBC 3.49 L (4.10-5.20) X 10*6/uL Hgb 10.4 L (12.0-15.0) g/dL Hct 31.9 L (37.2-46.3) % RDW 15.7 H (11.5-14.5) % Immature Gran # 0.07 H (0.00-0.04) X 10*3/uL Neutrophils # 9.23 H (1.80-7.70) X 10*3/uL Monocytes # 1.25 H (0.20-1.00) X 10*3/uL Carbon Dioxide 33.9 H (20.0-27.5) mmol/L Anion Gap 6.00 L (10.00-18.00) mmol/L POC Glucose (mg/dL) 110 H (75-99) mg/dL Calcium 8.1 L (8.7-10.3) mg/dL Microbiology - Last 24 Hours (Table) 01/06/22 10:41 Anaerobic Culture - Final Incision
--- NOTE | 2022-01-11 13:40 | P.PN ---
Subjective Progress Note Date: 01/11/22 Principal diagnosis: Incarcerated hernia, cirrhosis of liver Patient is seen and examined as follow up for cirrhosis of liver with ascites. SHe was admitted with abdominal pain and incarcerated umbilical hernia. She underwent repair of strangulated incisional hernia with small bowel resection on 12/29/2021. States that she did have some diarrhea again today. No nausea or v omiting. Tolerating her diet. She did undergo paracentesis yesterday with removal of 2.2 L of fluid. She currently remains on daptomycin Objective - Vital Signs Vital signs: Vital Signs Temp 98.3 F 01/11/22 04:48 Pulse 80 01/11/22 09:00 Resp 16 01/11/22 08:30 BP 104/66 01/11/22 09:00 Pulse Ox 93 L 01/11/22 04:48 Intake & Output 01/10/22 01/11/22 01/11/22 18:59 06:59 18:59 Intake Total 1630 1080 Output Total 40 60 Balance 1590 1020 Intake: Oral 1630 1080 Output: Drainage 40 60 Abdomen 40 60 Other: Voiding Method Toilet Toilet Toilet Bedpan Diaper Diaper Diaper # Voids 3 3 1 # Bowel Movements 1 - Exam General appearance: The patient is alert, oriented, appears in no acute distress. HET: Head is normocephalic and atraumatic. Conjunctiva pink. Sclera anicteric. Neck: Supple without lymphadenopathy. Abdomen: Soft, mild tenderness, incision with garret well approximated, clean dry and intact. Positive bowel sounds. No guarding or rigidity. GLADYS drain with serosanguineous drainage. Extremities: Normal skin color and turgor. No pedal edema Skin: No rashes, no jaundice Neurological: No focal deficits. Alert and oriented x3. - Labs CBC & Chem 7: 01/11/22 08:00 01/11/22 08:00 Labs: Abnormal Lab Results - Last 24 Hours (Table) 01/11/22 01/11/22 01/11/22 Range/Units 08:00 08:00 12:22 WBC 12.93 H (4.50-10.00) X 10*3/uL RBC 3.49 L (4.10-5.20) X 10*6/uL Hgb 10.4 L (12.0-15.0) g/dL Hct 31.9 L (37.2-46.3) % RDW 15.7 H (11.5-14.5) % Immature Gran # 0.07 H (0.00-0.04) X 10*3/uL Neutrophils # 9.23 H (1.80-7.70) X 10*3/uL Monocytes # 1.25 H (0.20-1.00) X 10*3/uL Carbon Dioxide 33.9 H (20.0-27.5) mmol/L Anion Gap 6.00 L (10.00-18.00) mmol/L POC Glucose (mg/dL) 110 H (75-99) mg/dL Calcium 8.1 L (8.7-10.3) mg/dL Microbiology - Last 24 Hours (Table) 01/06/22 10:41 Anaerobic Culture - Final Incision Assessment and Plan (1) Alcoholic cirrhosis of liver with ascites Narrative/Plan: 58-year-old female who presented to the emergency department with abdominal pain and umbilical hernia. She has a long-standing history of alcohol abuse with decompensated alcoholic cirrhosis of the liver with ascites. She was previously getting paracentesis every 2-3 weeks, diuretics were adjusted and patient is now having paracentesis every 4-6 weeks. This paracentesis around November 25. Patient presented to the emergency room, CT of the abdomen and pelvis showed an incarcerated umbilical hernia with concerns for ischemia/early infarction. She has been seen by Dr. Haro and is shceudled for surgery this afternoon. Patient is high risk for abdominal surgery due to her c versus a liver and ascites. This was discussed with patient. She verbalized understanding. Gastroenterology will continue to follow. Current Visit: Yes Status: Acute Code(s): K70.31 - ALCOHOLIC CIRRHOSIS OF LIVER WITH ASCITES SNOMED Code(s): 250469577 (2) Incarcerated hernia Narrative/Plan: Patient admitted with incarcerated umbilical hernia with reported bowel obstruction was suspected ischemic/early infarction. Patient is being followed by general surgery. Status post surgical repair of stangulated incisional hernia with small bowel resection. Current Visit: Yes Status: Acute Code(s): K46.0 - UNSP ABDOMINAL HERNIA WITH OBSTRUCTION, WITHOUT GANGRENE SNOMED Code(s): 24120081 (3) Hypokalemia Narrative/Plan: resolved Current Visit: No Status: Acute Code(s): E87.6 - HYPOKALEMIA SNOMED Code(s): 78917497 (4) Enterococcus, vancomycin-resistant Narrative/Plan: Patient currently on daptomycin. Infectious disease on consult. Current Visit: Yes Status: Acute Code(s): A49.1 - STREPTOCOCCAL INFECTION, UNSPECIFIED SITE; Z16.21 - RESISTANCE TO VANCOMYCIN SNOMED Code(s): 903794544 Plan: 1. Continue symptomatic and supportive care 2. Continue per recommendations from infectious disease 3. Paracentesis as needed 4. Continue spironolactone 50 mg twice a day and Lasix 40 mg twice a day Thank you for this consultation. Dr. John Burrows I agree with the dictator's note, documented as a scribe by Sheryl Linares.
--- NOTE | 2022-01-11 13:40 | P.PN ---
Subjective Progress Note Date: 01/11/22 Shyann Wynn is a 66 yo F with PMH of alcoholic cirrhosis with ascites, GERD, hypothyroidism who is admitted with incarcerated umbilical hernia. She is POD#1, has NG tube in place with bilious output, reports aching abdominal pain. She denies nausea. Pt hypotensive postop which is improved after IV fluids and resuming her home midodrine. WBC today 14k, Hgb 11, Cr 0.9, albumin 2.3. She did have 4.5 L ascitic fluid removed with surgery yesterday. 12/31/2021 afebrile, T-max 99.6, WBC decreased to 12.18.Borderline hypotension on Midodrin. Mean arterial pressures high 60s to mid 70s. Minimal NG output. Denies abdominal pain. Denies nausea ,vomiting. Complains of irritation of throat secondary to NG tube. Potassium 3.3. Renal function stable. Urine culture negative. 01/03/2022 tolerating full liquid diet, denies nausea or vomiting . Positive bowel movement.continues on Zosyn.shortness of breath last night, requiring 2 L nasal cannula, currently maintaining O2 sats in the high 90s. Paracentesis pending. Hemoglobin pending. Maintained on Midodrin ,blood pressure improved. Sitting up at side of bed, minimal ambulation. Receiving potassium supplementation for potassium level 3.3, magnesium level pending. Midline placement pending. Blood sugars stable. Sodium 1:30, recent albumin 2.3. Denies chest pain, palpitations. 01/04/2022 sitting up in chair, complaining of incisional tenderness, reports increased shortness of breath during the night, awaiting a paracentesis. Received pre-albumin. Sodium improved, 135. Receiving potassium and magnesium supplements for potassium 2.8, magnesium 1.4. Denies chest pain, palpitations. 01/05/2022 completed paracentesis yesterday with limited 0.2 L of serous fluid drained. Tolerated procedure well. Denies chest pain, palpitations or shortness of breath. Patient is maintaining O2 sats of 100% on 2 L nasal cannula which can be titrated off. Passing flatus. Blood sugar decrease this morning is 68, currently in the high 90s, tolerating full liquid diet. Denies nausea or vomiting. Denies pain, reports surgical tenderness. Denies chest pain, palpitations. Significant weakness and agreeable to subacute rehab. at discharge. Maintained on Zosyn. Afebrile. Electrolytes within normal limits, receiving magnesium supplementation per magnesium level I.7. Renal function stable. 01/06/2022 positive bowel movement Yojana, passing flatus yesterday and today. Complains of being up all night secondary to diuretics administered late- rescheduled. Proximal incision with brownish drainage. T-max 99, WBC 7.74. Consuming 75% of regular diet with no nausea or vomiting. Blood sugars controlled. Potassium 3.5 ,Magnesium 1.7. Oxygen has been weaned off, maintaining O2 sats in the high 90s on room air. 01/07/2022 sitting up in chair, reporting shortness of breath, negative congestion or cough, reporting nasal congestion. Denies chest pain, palpitations. T-max 99.2, normal WBC. Decreasing surgical incisional drainage- Wound culture pending. Maintained on Zosyn. Tolerating diet intake with no nausea or vomiting. Positive bowel movement this morning. 01-10-22 repeat paracentesis pending. Sitting up in chair, T-max 99.3. Wound culture reported enterococcus faecium VRE. Antibiotics adjusted to daptomycin. Denies surgical pain, reports pain only at GLADYS drain site. Labs pending. Denies chest pain, palpitations or shortness of breath. 01/11/2022 status post paracentesis yesterday with approximately 2.3 L of straw- colored fluid drained. Tolerated procedure well. Antibiotics yesterday adjusted daptomycin regarding VRE reported from the surgical site drainage cultures. Evaluated by infectious disease, blood cultures obtained. Afebrile, WBC increased to 12.93. Renal function stable. Denies surgical pain. Denies shortness of breath. Denies chest pain or palpitations. Objective - Vital Signs Vital signs: Vital Signs Temp 98.3 F 01/11/22 04:48 Pulse 80 01/11/22 09:00 Resp 16 01/11/22 08:30 BP 104/66 01/11/22 09:00 Pulse Ox 93 L 01/11/22 04:48 Intake & Output 01/10/22 01/11/22 01/11/22 18:59 06:59 18:59 Intake Total 1630 1080 Output Total 40 60 Balance 1590 1020 Intake: Oral 1630 1080 Output: Drainage 40 60 Abdomen 40 60 Other: Voiding Method Toilet Toilet Toilet Bedpan Diaper Diaper Diaper # Voids 3 3 1 # Bowel Movements 1 - Exam Gen: sitting up in chair, no acute distress HEENT: normocephalic, atraumatic,MMM Neck: supple, no JVD CV: RRR, no murmur Lungs: Normal effort,clear thoughout Abd; soft, distended, status post surgery, surgical site clean, dry , intact with garret, GLADYS with serosanguineous drainage, + bowel sounds Neuro: alert and oriented x3, no focal deficits Skin: warm and dry - Labs CBC & Chem 7: 01/11/22 08:00 01/11/22 08:00 Labs: Abnormal Lab Results - Last 24 Hours (Table) 01/11/22 01/11/22 01/11/22 Range/Units 08:00 08:00 12:22 WBC 12.93 H (4.50-10.00) X 10*3/uL RBC 3.49 L (4.10-5.20) X 10*6/uL Hgb 10.4 L (12.0-15.0) g/dL Hct 31.9 L (37.2-46.3) % RDW 15.7 H (11.5-14.5) % Immature Gran # 0.07 H (0.00-0.04) X 10*3/uL Neutrophils # 9.23 H (1.80-7.70) X 10*3/uL Monocytes # 1.25 H (0.20-1.00) X 10*3/uL Carbon Dioxide 33.9 H (20.0-27.5) mmol/L Anion Gap 6.00 L (10.00-18.00) mmol/L POC Glucose (mg/dL) 110 H (75-99) mg/dL Calcium 8.1 L (8.7-10.3) mg/dL Microbiology - Last 24 Hours (Table) 01/06/22 10:41 Anaerobic Culture - Final Incision Assessment and Plan Assessment: Incarcerated umbilical hernia status post repair, management per surgery. Abdominal wound culture reporting enterococcus VRE. Alcoholic cirrhosis, ascites, status post paracentesis. Hepatorenal syndrome, hypotension, continues on Midodrin Hyponatremia, improving Hypoalbuminemia Hypokalemia Hypomagnesemia Midline placed 01/04/2022 Increase activity as tolerated. Blood cultures in progress. Antibiotics as per ID. Maintain aggressive pulmonary toileting with incentive spirometer reinforced. Prognosis guarded given multiple complex medical issues. Subacute rehab at discharge. The impression and plan of care has been dictated as directed. : I performed a history and examination of this patient, discussed the same with the dictator. I agree with the dictator's note ,documented as a scribe. Any additional findings or plans will be noted.
[2022-01-11] MEDS: THIAMINE 100 MG TAB PO SCH (16:14)
[2022-01-11 17:33] LABS: Glucose,Whole Blood 90 mg/dL (75-99)
[2022-01-11 20:51] LABS: Glucose,Whole Blood 96 mg/dL (75-99)
[2022-01-11] MEDS: LORATADINE 10 MG TAB PO SCH (21:39)
[2022-01-12] MEDS: diphenhydrAMINE 50 MG/ML 1 ML VIAL IVP PRN (03:18)
[2022-01-12] MEDS: LEVOTHYROXINE 50 MCG TAB PO SCH (06:04)
[2022-01-12 07:24] LABS: Glucose,Whole Blood 74 mg/dL (75-99)
[2022-01-12] MEDS: ENOXAPARIN 40 MG/0.4 ML SYRINGE SQ SCH (09:43)
[2022-01-12] MEDS: FOLIC ACID 1 MG TAB PO SCH ×2 (09:44→16:39)
[2022-01-12] MEDS: MIDODRINE 5 MG TAB PO SCH ×3 (09:44→16:38)
[2022-01-12] MEDS: PANTOPRAZOLE 40 MG TABLET PO SCH (09:45)
[2022-01-12] MEDS: MULTIVITAMINS, THERA 1 EACH TAB PO SCH (09:45)
[2022-01-12] MEDS: FUROSEMIDE 40 MG TAB PO SCH ×2 (09:45→16:38)
[2022-01-12] MEDS: MAGNESIUM OXIDE 400 MG TAB PO SCH ×2 (09:45→16:38)
[2022-01-12] MEDS: SPIRONOLACTONE 25 MG TAB PO SCH ×2 (09:45→16:38)
[2022-01-12 11:29] LABS: Basophils # (A) 0.1 k/uL (0-0.2); Basophils % (A) 1 %; Eosinophils # (A) 0.1 k/uL (0-0.7); Eosinophils % (A) 1 %; HCT 33.7 % (34.0-46.0); HGB 10.7 gm/dL (11.4-16.0); Lymphocytes # (A) 1.1 k/uL (1.0-4.8); Lymphocytes % (A) 11 %; MCH 30.4 pg (25.0-35.0); MCHC 31.6 g/dL (31.0-37.0); MCV 96.1 fL (80.0-100.0); Mean Platelet Volume 8.3; Monocytes # (A) 0.7 k/uL (0-1.0); Monocytes % (A) 7 %; Neutrophils # (A) 8.1 k/uL (1.3-7.7); Neutrophils % (A) 78 %; Platelet Count 370 k/uL (150-450); RBC 3.51 m/uL (3.80-5.40); RDW 15.4 % (11.5-15.5); WBC 10.4 k/uL (3.8-10.6)
[2022-01-12 11:48] LABS: Glucose,Whole Blood 91 mg/dL (75-99)
--- NOTE | 2022-01-12 11:49 | P.PN ---
Subjective Progress Note Date: 01/12/22 Principal diagnosis: Incarcerated hernia, cirrhosis of liver Patient is seen and examined as follow up for cirrhosis of liver with ascites. SHe was admitted with abdominal pain and incarcerated umbilical hernia. She underwent repair of strangulated incisional hernia with small bowel resection on 12/29/2021. States her diarrhea improved today. States she just had a bowel mo vement this morning that was soft and more formed. Denies any abdominal drainage. GLADYS drain intact with serosanguineous drainage. She's been afebrile. No nausea or vomiting. Objective - Vital Signs Vital signs: Vital Signs Temp 98.7 F 01/12/22 04:42 Pulse 86 01/12/22 04:42 Resp 16 01/12/22 04:42 BP 105/75 01/12/22 04:42 Pulse Ox 95 01/12/22 04:42 Intake & Output 01/11/22 01/12/22 01/12/22 18:59 06:59 18:59 Intake Total 240 1670 Output Total 30 20 Balance 210 1650 Weight 68.946 kg Intake: Oral 240 1670 Output: Drainage 30 20 Abdomen 30 20 Other: Voiding Method Toilet Toilet Diaper Diaper # Voids 4 6 2 # Bowel Movements 1 1 1 - Exam General appearance: The patient is alert, oriented, appears in no acute distress. HET: Head is normocephalic and atraumatic. Conjunctiva pink. Sclera anicteric. Neck: Supple without lymphadenopathy. Abdomen: Soft, mild tenderness, incision with garret well approximated, clean dry and intact. Positive bowel sounds. No guarding or rigidity. GLADYS drain with serosanguineous drainage. Extremities: Normal skin color and turgor. No pedal edema Skin: No rashes, no jaundice Neurological: No focal deficits. Alert and oriented x3. - Labs CBC & Chem 7: 01/12/22 10:55 01/11/22 08:00 Labs: Abnormal Lab Results - Last 24 Hours (Table) 01/11/22 01/12/22 01/12/22 Range/Units 12:22 07:23 10:55 RBC 3.51 L (3.80-5.40) m/uL Hgb 10.7 L (11.4-16.0) gm/dL Hct 33.7 L (34.0-46.0) % Neutrophils # 8.1 H (1.3-7.7) k/uL POC Glucose (mg/dL) 110 H 74 L (75-99) mg/dL Assessment and Plan (1) Alcoholic cirrhosis of liver with ascites Narrative/Plan: 58-year-old female who presented to the emergency department with abdominal pain and umbilical hernia. She has a long-standing history of alcohol abuse with decompensated alcoholic cirrhosis of the liver with ascites. She was previously getting paracentesis every 2-3 weeks, diuretics were adjusted and patient is now having paracentesis every 4-6 weeks. This paracentesis around November 25. Patient presented to the emergency room, CT of the abdomen and pelvis showed an incarcerated umbilical hernia with concerns for ischemia/early infarction. She has been seen by Dr. Haro and is shceudled for surgery this afternoon. Patient is high risk for abdominal surgery due to her c versus a liver and ascites. This was discussed with patient. She verbalized understanding. Gastroenterology will continue to follow. Patient underwent paracentesis 01/10/22 with 2.3 L removed. Continue diuretics as ordered Current Visit: Yes Status: Acute Code(s): K70.31 - ALCOHOLIC CIRRHOSIS OF LIVER WITH ASCITES SNOMED Code(s): 362294751 (2) Incarcerated hernia Narrative/Plan: Patient admitted with incarcerated umbilical hernia with reported bowel obstruction was suspected ischemic/early infarction. Patient is being followed by general surgery. Status post surgical repair of stangulated incisional hernia with small bowel resection. Current Visit: Yes Status: Acute Code(s): K46.0 - UNSP ABDOMINAL HERNIA WITH OBSTRUCTION, WITHOUT GANGRENE SNOMED Code(s): 78956696 (3) Hypokalemia Narrative/Plan: resolved Current Visit: No Status: Acute Code(s): E87.6 - HYPOKALEMIA SNOMED Code(s): 47058360 (4) Enterococcus, vancomycin-resistant Narrative/Plan: Patient currently on daptomycin. Infectious disease on consult. Current Visit: Yes Status: Acute Code(s): A49.1 - STREPTOCOCCAL INFECTION, UNSPECIFIED SITE; Z16.21 - RESISTANCE TO VANCOMYCIN SNOMED Code(s): 601497703 Plan: 1. Continue symptomatic and supportive care 2. Continue per recommendations from infectious disease 3. Paracentesis as needed 4. Continue spironolactone 50 mg twice a day and Lasix 40 mg twice a day Thank you for this consultation. Patient is cleared for discharge from gastroenterology. Patient to follow-up as scheduled with Dr. Stormy Burrows I agree with the dictator's note, documented as a scribe by Sheryl Linares.
--- NOTE | 2022-01-12 14:48 | P.PN ---
Subjective Progress Note Date: 01/12/22 CHIEF COMPLAINT: Incarcerated incisional hernia HISTORY OF PRESENT ILLNESS: Patient is status post repair of strangulated incisional hernia, small bowel resection and aspiration of 4.5 L of ascites for strangulated incisional hernia with necrotic small bowel on 12/29/21. Patient lying in bed. She is complaining of nausea today. She is having bowel movements. Denies any abdominal pain. Complains more of right shoulder pain. She is afebrile. WBC is 10.4 hemoglobin is 10.7 GLADYS drain with 20ml seros anguineous output Patient seen and examined with Dr. wong PHYSICAL EXAM: VITAL SIGNS: Reviewed. GENERAL: Well-developed in no acute distress. HEENT: No sclera icterus. Extraocular movements grossly intact. Moist buccal mucosa. Head is atraumatic, normocephalic. ABDOMEN: Soft. Distended. Incision site clean dry and intact NEUROLOGIC: Alert and oriented. Cranial nerves II through XII grossly intact. ASSESSMENT: 1. Strangulated incisional hernia with necrotic bowel status post repair of strangulated incisional hernia, small bowel resection and aspiration of 4.5 L of ascites 2. History of Liver cirrhosis with ascites status post paracentesis 2 3. Hypokalemia improved 4. Hypoglycemia improved 5. Hyponatremia improved 6. Incisional drainage growing VRE PLAN: -Continue regular diet -Antibiotics per infectious disease. Awaiting infectious disease discharge recommendations -Continue pain medication as needed -Encourage incentive spirometer use -Encourage patient to increase activity level -Patient will require ECF at discharge -DVT prophylaxis Lovenox and GI prophylaxis Protonix Physician Fire Controlman note has been reviewed by physician. Signing provider agrees with the documented findings, assessment, and plan of care. Objective - Vital Signs Vital signs: Vital Signs Temp 98.4 F 01/12/22 11:55 Pulse 78 01/12/22 11:55 Resp 16 01/12/22 11:55 BP 148/80 01/12/22 11:55 Pulse Ox 98 01/12/22 11:55 Intake & Output 01/11/22 01/12/22 01/12/22 18:59 06:59 18:59 Intake Total 240 1670 Output Total 30 20 Balance 210 1650 Weight 68.946 kg Intake: Oral 240 1670 Output: Drainage 30 20 Abdomen 30 20 Other: Voiding Method Toilet Toilet Diaper Diaper # Voids 4 6 2 # Bowel Movements 1 1 1 - Labs CBC & Chem 7: 01/12/22 10:55 01/11/22 08:00 Labs: Abnormal Lab Results - Last 24 Hours (Table) 01/12/22 01/12/22 Range/Units 07:23 10:55 RBC 3.51 L (3.80-5.40) m/uL Hgb 10.7 L (11.4-16.0) gm/dL Hct 33.7 L (34.0-46.0) % Neutrophils # 8.1 H (1.3-7.7) k/uL POC Glucose (mg/dL) 74 L (75-99) mg/dL
--- NOTE | 2022-01-12 14:49 | P.PN ---
Subjective Progress Note Date: 01/12/22 Shyann Wynn is a 66 yo F with PMH of alcoholic cirrhosis with ascites, GERD, hypothyroidism who is admitted with incarcerated umbilical hernia. She is POD#1, has NG tube in place with bilious output, reports aching abdominal pain. She denies nausea. Pt hypotensive postop which is improved after IV fluids and resuming her home midodrine. WBC today 14k, Hgb 11, Cr 0.9, albumin 2.3. She did have 4.5 L ascitic fluid removed with surgery yesterday. 12/31/2021 afebrile, T-max 99.6, WBC decreased to 12.18.Borderline hypotension on Midodrin. Mean arterial pressures high 60s to mid 70s. Minimal NG output. Denies abdominal pain. Denies nausea ,vomiting. Complains of irritation of throat secondary to NG tube. Potassium 3.3. Renal function stable. Urine culture negative. 01/03/2022 tolerating full liquid diet, denies nausea or vomiting . Positive bowel movement.continues on Zosyn.shortness of breath last night, requiring 2 L nasal cannula, currently maintaining O2 sats in the high 90s. Paracentesis pending. Hemoglobin pending. Maintained on Midodrin ,blood pressure improved. Sitting up at side of bed, minimal ambulation. Receiving potassium supplementation for potassium level 3.3, magnesium level pending. Midline placement pending. Blood sugars stable. Sodium 1:30, recent albumin 2.3. Denies chest pain, palpitations. 01/04/2022 sitting up in chair, complaining of incisional tenderness, reports increased shortness of breath during the night, awaiting a paracentesis. Received pre-albumin. Sodium improved, 135. Receiving potassium and magnesium supplements for potassium 2.8, magnesium 1.4. Denies chest pain, palpitations. 01/05/2022 completed paracentesis yesterday with limited 0.2 L of serous fluid drained. Tolerated procedure well. Denies chest pain, palpitations or shortness of breath. Patient is maintaining O2 sats of 100% on 2 L nasal cannula which can be titrated off. Passing flatus. Blood sugar decrease this morning is 68, currently in the high 90s, tolerating full liquid diet. Denies nausea or vomiting. Denies pain, reports surgical tenderness. Denies chest pain, palpitations. Significant weakness and agreeable to subacute rehab. at discharge. Maintained on Zosyn. Afebrile. Electrolytes within normal limits, receiving magnesium supplementation per magnesium level I.7. Renal function stable. 01/06/2022 positive bowel movement Monday, passing flatus yesterday and today. Complains of being up all night secondary to diuretics administered late- rescheduled. Proximal incision with brownish drainage. T-max 99, WBC 7.74. Consuming 75% of regular diet with no nausea or vomiting. Blood sugars controlled. Potassium 3.5 ,Magnesium 1.7. Oxygen has been weaned off, maintaining O2 sats in the high 90s on room air. 01/07/2022 sitting up in chair, reporting shortness of breath, negative congestion or cough, reporting nasal congestion. Denies chest pain, palpitations. T-max 99.2, normal WBC. Decreasing surgical incisional drainage- Wound culture pending. Maintained on Zosyn. Tolerating diet intake with no nausea or vomiting. Positive bowel movement this morning. 01-10-22 repeat paracentesis pending. Sitting up in chair, T-max 99.3. Wound culture reported enterococcus faecium VRE. Antibiotics adjusted to daptomycin. Denies surgical pain, reports pain only at GLADYS drain site. Labs pending. Denies chest pain, palpitations or shortness of breath. 01/11/2022 status post paracentesis yesterday with approximately 2.3 L of straw- colored fluid drained. Tolerated procedure well. Antibiotics yesterday adjusted daptomycin regarding VRE reported from the surgical site drainage cultures. Evaluated by infectious disease, blood cultures obtained. Afebrile, WBC increased to 12.93. Renal function stable. Denies surgical pain. Denies shortness of breath. Denies chest pain or palpitations. 01/12/22 continues on spironolactone and Lasix .sitting up in chair, reports bowel movements soft and formed. Denies pain, denies shortness of breath. Maintained on IV antibiotics as per infectious disease. Afebrile, labs pending. Consuming 25-50% of diet with no nausea or vomiting. Denies chest pain, palpitations. Denies lightheadedness or dizziness or focal deficits. Objective - Vital Signs Vital signs: Vital Signs Temp 98.4 F 01/12/22 11:55 Pulse 78 05/04/22 11:55 Resp 16 01/12/22 11:55 BP 148/80 01/12/22 11:55 Pulse Ox 98 01/12/22 11:55 Intake & Output 01/11/22 01/12/22 01/12/22 18:59 06:59 18:59 Intake Total 240 1670 Output Total 30 20 Balance 210 1650 Weight 68.946 kg Intake: Oral 240 1670 Output: Drainage 30 20 Abdomen 30 20 Other: Voiding Method Toilet Toilet Diaper Diaper # Voids 4 6 2 # Bowel Movements 1 1 1 - Exam Gen: sitting up in chair, no acute distress HEENT: normocephalic, atraumatic,MMM Neck: supple, no JVD CV: RRR, no murmur Lungs: Normal effort,clear thoughout Abd; soft, distended, status post surgery, surgical site clean, dry , intact with garret, GLADYS with serosanguineous drainage, + bowel sounds Neuro: alert and oriented x3, no focal deficits Skin: warm and dry - Labs CBC & Chem 7: 01/12/22 10:55 01/11/22 08:00 Labs: Abnormal Lab Results - Last 24 Hours (Table) 01/12/22 01/12/22 Range/Units 07:23 10:55 RBC 3.51 L (3.80-5.40) m/uL Hgb 10.7 L (11.4-16.0) gm/dL Hct 33.7 L (34.0-46.0) % Neutrophils # 8.1 H (1.3-7.7) k/uL POC Glucose (mg/dL) 74 L (75-99) mg/dL Assessment and Plan Assessment: Incarcerated umbilical hernia status post repair, management per surgery. Abdominal wound culture reporting enterococcus VRE. Alcoholic cirrhosis, ascites, status post paracentesis. Hepatorenal syndrome, hypotension, continues on Midodrin Hyponatremia, improving Hypoalbuminemia Hypokalemia Hypomagnesemia Midline placed 01/04/2022 Increase activity as tolerated. Blood cultures in progress. Antibiotics as per ID. no paracentesis cultures performed, blood cultures ordered.increase ambulation as tolerated .Aggressive pulmonary toileting with incentive spirometer reinforced. Prognosis guarded given multiple complex medical issues. Subacute rehab at discharge. The impression and plan of care has been dictated as directed. : I performed a history and examination of this patient, discussed the same with the dictator. I agree with the dictator's note ,documented as a scribe. Any additional findings or plans will be noted.
[2022-01-12] MEDS: THIAMINE 100 MG TAB PO SCH (16:38)
[2022-01-12 17:19] LABS: Glucose,Whole Blood 93 mg/dL (75-99)
[2022-01-12 20:02] LABS: Glucose,Whole Blood 150 mg/dL (75-99)
--- NOTE | 2022-01-12 20:58 | P.PN ---
Subjective Progress Note Date: 01/11/22 Principal diagnosis: Abdominal wall cellulitis Patient is a 66-year-old female presented to hospital with abdominal pain has been diagnosed with incarcerated hernia status post laparotomy resection of the small bowel and repair of the hernia, patient was noticed to have some drainage from abdominal incision which was cultured and grew VRE. On today's evaluation that is 01/11/2022, the patient denies having any fever or any chills, patient denies any abdominal pain, overall drainage from the incision has decreased her chest pain shortness of breath or cough and no diarrhea Objective - Vital Signs Vital signs: Vital Signs Temp 98.3 F 01/11/22 12:20 Pulse 81 01/11/22 12:20 Resp 18 01/11/22 12:20 BP 100/67 01/11/22 12:20 Pulse Ox 96 01/11/22 12:20 Intake & Output 01/10/22 01/11/22 01/11/22 18:59 06:59 18:59 Intake Total 1630 1080 Output Total 40 60 Balance 1590 1020 Intake: Oral 1630 1080 Output: Drainage 40 60 Abdomen 40 60 Other: Voiding Method Toilet Toilet Toilet Bedpan Diaper Diaper Diaper # Voids 3 3 1 # Bowel Movements 1 - Exam GENERAL DESCRIPTION: An elderly female lying in bed in no distress RESPIRATORY SYSTEM: Unlabored breathing , decreased breath sounds at bases HEART: S1 S2 regular rate and rhythm , ABDOMEN: Soft , midline abdominal incision is dressed no drainage on the dressing EXTREMITIES: No edema feet - Labs CBC & Chem 7: 01/12/22 10:55 01/11/22 08:00 Labs: Abnormal Lab Results - Last 24 Hours (Table) 01/11/22 01/11/22 01/11/22 Range/Units 08:00 08:00 12:22 WBC 12.93 H (4.50-10.00) X 10*3/uL RBC 3.49 L (4.10-5.20) X 10*6/uL Hgb 10.4 L (12.0-15.0) g/dL Hct 31.9 L (37.2-46.3) % RDW 15.7 H (11.5-14.5) % Immature Gran # 0.07 H (0.00-0.04) X 10*3/uL Neutrophils # 9.23 H (1.80-7.70) X 10*3/uL Monocytes # 1.25 H (0.20-1.00) X 10*3/uL Carbon Dioxide 33.9 H (20.0-27.5) mmol/L Anion Gap 6.00 L (10.00-18.00) mmol/L POC Glucose (mg/dL) 110 H (75-99) mg/dL Calcium 8.1 L (8.7-10.3) mg/dL Microbiology - Last 24 Hours (Table) 01/06/22 10:41 Anaerobic Culture - Final Incision Assessment and Plan (1) Superficial incisional surgical site infection Current Visit: Yes Status: Acute Code(s): T81.41XA - INFCT FOL A PROC, SUPERFIC INCISIONAL SURGICAL SITE, INIT SNOMED Code(s): 588782192 Plan: 1patient with recent laparotomy for incarcerated hernia in this patient noticed to have more drainage from the abdominal incision culture positive for VRE possible mild superficial infection clinically not behaving as deep infection to continue with the daptomycin and monitor clinical course closely Time with Patient: Less than 30
--- NOTE | 2022-01-12 21:00 | P.PN ---
Subjective Progress Note Date: 01/12/22 Principal diagnosis: Abdominal wall cellulitis Patient is a 66-year-old female presented to hospital with abdominal pain has been diagnosed with incarcerated hernia status post laparotomy resection of the small bowel and repair of the hernia, patient was noticed to have some drainage from abdominal incision which was cultured and grew VRE. On today's evaluation that is 01/12/2022, the patient remains to be afebrile, patient denies any abdominal pain, the patient denies drainage from the incision , the patient denies chest pain shortness of breath or cough and no diarrhea Objective - Vital Signs Vital signs: Vital Signs Temp 98.4 F 01/12/22 11:55 Pulse 78 01/12/22 11:55 Resp 16 01/12/22 11:55 BP 148/80 01/12/22 11:55 Pulse Ox 98 01/12/22 11:55 Intake & Output 01/11/22 01/12/22 01/12/22 18:59 06:59 18:59 Intake Total 240 1670 Output Total 30 20 Balance 210 1650 Weight 68.946 kg Intake: Oral 240 1670 Output: Drainage 30 20 Abdomen 30 20 Other: Voiding Method Toilet Toilet Diaper Diaper # Voids 4 6 2 # Bowel Movements 1 1 1 - Exam GENERAL DESCRIPTION: An elderly female lying in bed in no distress RESPIRATORY SYSTEM: Unlabored breathing , decreased breath sounds at bases HEART: S1 S2 regular rate and rhythm , ABDOMEN: Soft , midline abdominal incision is dry with no drainage EXTREMITIES: No edema feet - Labs CBC & Chem 7: 01/12/22 10:55 01/11/22 08:00 Labs: Abnormal Lab Results - Last 24 Hours (Table) 01/12/22 01/12/22 Range/Units 07:23 10:55 RBC 3.51 L (3.80-5.40) m/uL Hgb 10.7 L (11.4-16.0) gm/dL Hct 33.7 L (34.0-46.0) % Neutrophils # 8.1 H (1.3-7.7) k/uL POC Glucose (mg/dL) 74 L (75-99) mg/dL Assessment and Plan (1) Superficial incisional surgical site infection Current Visit: Yes Status: Acute Code(s): T81.41XA - INFCT FOL A PROC, SUPERFIC INCISIONAL SURGICAL SITE, INIT SNOMED Code(s): 845746910 Plan: 1patient with recent laparotomy for incarcerated hernia in this patient noticed to have more drainage from the abdominal incision culture positive for VRE possible mild superficial infection clinically not behaving as deep infection , Discussed with the surgical team patient did get a midline and will continue with the daptomycin x 7 days on discharge and monitor clinical course closely Time with Patient: Less than 30
[2022-01-12] MEDS: LORATADINE 10 MG TAB PO SCH (21:40)
[2022-01-13] MEDS: HYDROcodone/APAP 5-325MG 1 EACH TAB PO PRN (03:12)
[2022-01-13] MEDS: LEVOTHYROXINE 50 MCG TAB PO SCH (06:13)
[2022-01-13 07:06] LABS: Glucose,Whole Blood 117 mg/dL (75-99)
[2022-01-13] MEDS: MAGNESIUM OXIDE 400 MG TAB PO SCH ×2 (07:57→16:29)
[2022-01-13] MEDS: PANTOPRAZOLE 40 MG TABLET PO SCH (07:57)
[2022-01-13] MEDS: MIDODRINE 5 MG TAB PO SCH ×3 (07:57→16:32)
[2022-01-13] MEDS: MULTIVITAMINS, THERA 1 EACH TAB PO SCH (07:57)
[2022-01-13] MEDS: FOLIC ACID 1 MG TAB PO SCH ×2 (07:58→16:29)
[2022-01-13] MEDS: FUROSEMIDE 40 MG TAB PO SCH ×2 (07:59→16:31)
[2022-01-13] MEDS: SPIRONOLACTONE 25 MG TAB PO SCH ×2 (07:59→16:31)
[2022-01-13] MEDS: ENOXAPARIN 40 MG/0.4 ML SYRINGE SQ SCH (07:59)
--- NOTE | 2022-01-13 11:50 | P.PN ---
Subjective Progress Note Date: 01/13/22 Shyann Wynn is a 66 yo F with PMH of alcoholic cirrhosis with ascites, GERD, hypothyroidism who is admitted with incarcerated umbilical hernia. She is POD#1, has NG tube in place with bilious output, reports aching abdominal pain. She denies nausea. Pt hypotensive postop which is improved after IV fluids and resuming her home midodrine. WBC today 14k, Hgb 11, Cr 0.9, albumin 2.3. She did have 4.5 L ascitic fluid removed with surgery yesterday. 12/31/2021 afebrile, T-max 99.6, WBC decreased to 12.18.Borderline hypotension on Midodrin. Mean arterial pressures high 60s to mid 70s. Minimal NG output. Denies abdominal pain. Denies nausea ,vomiting. Complains of irritation of throat secondary to NG tube. Potassium 3.3. Renal function stable. Urine culture negative. 01/03/2022 tolerating full liquid diet, denies nausea or vomiting . Positive bowel movement.continues on Zosyn.shortness of breath last night, requiring 2 L nasal cannula, currently maintaining O2 sats in the high 90s. Paracentesis pending. Hemoglobin pending. Maintained on Midodrin ,blood pressure improved. Sitting up at side of bed, minimal ambulation. Receiving potassium supplementation for potassium level 3.3, magnesium level pending. Midline placement pending. Blood sugars stable. Sodium 1:30, recent albumin 2.3. Denies chest pain, palpitations. 01/04/2022 sitting up in chair, complaining of incisional tenderness, reports increased shortness of breath during the night, awaiting a paracentesis. Received pre-albumin. Sodium improved, 135. Receiving potassium and magnesium supplements for potassium 2.8, magnesium 1.4. Denies chest pain, palpitations. 01/05/2022 completed paracentesis yesterday with limited 0.2 L of serous fluid drained. Tolerated procedure well. Denies chest pain, palpitations or shortness of breath. Patient is maintaining O2 sats of 100% on 2 L nasal cannula which can be titrated off. Passing flatus. Blood sugar decrease this morning is 68, currently in the high 90s, tolerating full liquid diet. Denies nausea or vomiting. Denies pain, reports surgical tenderness. Denies chest pain, palpitations. Significant weakness and agreeable to subacute rehab. at discharge. Maintained on Zosyn. Afebrile. Electrolytes within normal limits, receiving magnesium supplementation per magnesium level I.7. Renal function stable. 01/06/2022 positive bowel movement Monday, passing flatus yesterday and today. Complains of being up all night secondary to diuretics administered late- rescheduled. Proximal incision with brownish drainage. T-max 99, WBC 7.74. Consuming 75% of regular diet with no nausea or vomiting. Blood sugars controlled. Potassium 3.5 ,Magnesium 1.7. Oxygen has been weaned off, maintaining O2 sats in the high 90s on room air. 01/07/2022 sitting up in chair, reporting shortness of breath, negative congestion or cough, reporting nasal congestion. Denies chest pain, palpitations. T-max 99.2, normal WBC. Decreasing surgical incisional drainage- Wound culture pending. Maintained on Zosyn. Tolerating diet intake with no nausea or vomiting. Positive bowel movement this morning. 01-10-22 repeat paracentesis pending. Sitting up in chair, T-max 99.3. Wound culture reported enterococcus faecium VRE. Antibiotics adjusted to daptomycin. Denies surgical pain, reports pain only at GLADYS drain site. Labs pending. Denies chest pain, palpitations or shortness of breath. 01/11/2022 status post paracentesis yesterday with approximately 2.3 L of straw- colored fluid drained. Tolerated procedure well. Antibiotics yesterday adjusted daptomycin regarding VRE reported from the surgical site drainage cultures. Evaluated by infectious disease, blood cultures obtained. Afebrile, WBC increased to 12.93. Renal function stable. Denies surgical pain. Denies shortness of breath. Denies chest pain or palpitations. 01/12/22 continues on spironolactone and Lasix .sitting up in chair, reports bowel movements soft and formed. Denies pain, denies shortness of breath. Maintained on IV antibiotics as per infectious disease. Afebrile, labs pending. Consuming 25-50% of diet with no nausea or vomiting. Denies chest pain, palpitations. Denies lightheadedness or dizziness or focal deficits. 01/13/2022 no overnight events. Afebrile, tested positive for COVID-19, asymptomatic. Maintaining O2 sats in the high 90s on room air. Denies chest pain, palpitations or shortness of breath. Denies cough. Denies abdominal pain. Denies nausea or vomiting. Continues on daptomycin as per ID. Discharge planning in progress. Objective - Vital Signs Vital signs: Vital Signs Temp 98.8 F 01/13/22 05:00 Pulse 84 01/13/22 05:00 Resp 18 01/13/22 05:00 BP 96/63 01/13/22 05:00 Pulse Ox 97 01/13/22 05:00 Intake & Output 01/12/22 01/13/22 01/13/22 18:59 06:59 18:59 Intake Total 400 Output Total 10 20 Balance -10 380 Intake: Oral 400 Output: Drainage 10 20 Abdomen 10 20 Other: Voiding Method Toilet Toilet Diaper Diaper # Voids 2 3 1 # Bowel Movements 1 - Exam Gen: sitting up in chair, no acute distress HEENT: normocephalic, atraumatic,MMM Neck: supple, no JVD CV: RRR, no murmur Lungs: Unlabored ,Normal effort,clear thoughout Abd; soft, distended, status post surgery, surgical site clean, dry , intact with garret, + bowel sounds Neuro: alert and oriented x3, no focal deficits Skin: warm and dry - Labs CBC & Chem 7: 01/12/22 10:55 01/11/22 08:00 Labs: Abnormal Lab Results - Last 24 Hours (Table) 01/12/22 01/12/22 01/13/22 Range/Units 10:55 19:54 07:03 RBC 3.51 L (3.80-5.40) m/uL Hgb 10.7 L (11.4-16.0) gm/dL Hct 33.7 L (34.0-46.0) % Neutrophils # 8.1 H (1.3-7.7) k/uL POC Glucose (mg/dL) 150 H 117 H (75-99) mg/dL Coronavirus (PCR) (Not Detectd) 01/13/22 Range/Units 10:07 RBC (3.80-5.40) m/uL Hgb (11.4-16.0) gm/dL Hct (34.0-46.0) % Neutrophils # (1.3-7.7) k/uL POC Glucose (mg/dL) (75-99) mg/dL Coronavirus (PCR) Detected A (Not Detectd) Assessment and Plan Assessment: Incarcerated umbilical hernia status post repair, management per surgery. Abdominal wound culture reporting enterococcus VRE. Covid-19, PCR positive, asymptomatic Alcoholic cirrhosis, ascites, status post paracentesis. Hepatorenal syndrome, hypotension, continues on Midodrin Hyponatremia, improving Hypoalbuminemia Hypokalemia Hypomagnesemia Midline placed 01/04/2022 Increase activity as tolerated. Blood cultures in progress. Vitamin C, vitamin D, zinc added to med regimen , no steroids at this time as patient is asymptomatic .discharge planning in progress for subacute rehab with antibiotics as per ID .maintain Aggressive pulmonary toileting with incentive spirometer reinforced. Prognosis guarded given multiple complex medical issues. Follow-up with PCP in 1 week after discharge from subacute rehab. The impression and plan of care has been dictated as directed. : I performed a history and examination of this patient, discussed the same with the dictator. I agree with the dictator's note ,documented as a scribe. Any additional findings or plans will be noted.
[2022-01-13 12:17] LABS: Glucose,Whole Blood 81 mg/dL (75-99)
[2022-01-13 13:11] VITALS: RESP 16
[2022-01-13] MEDS: CHOLECALCIFEROL 25 MCG (1000 IU) TABLET PO SCH (13:22)
[2022-01-13] MEDS: ZINC SULFATE 220 MG CAP PO SCH (13:22)
[2022-01-13] MEDS: ASCORBIC ACID 500 MG TAB PO SCH ×2 (13:22→20:23)
--- NOTE | 2022-01-13 15:40 | P.PN ---
Subjective Progress Note Date: 01/13/22 CHIEF COMPLAINT: Incarcerated incisional hernia HISTORY OF PRESENT ILLNESS: Patient is status post repair of strangulated incisional hernia, small bowel resection and aspiration of 4.5 L of ascites for strangulated incisional hernia with necrotic small bowel on 12/29/21. Patient denies any abdominal pain. Denies any nausea or vomiting. She is tolerating diet. She is having bowel movements. GLADYS drain with 20 mL of serosanguineous output. Afebrile. Covid detected. Patient seen and examined with Dr. wong PHYSICAL EXAM: VITAL SIGNS: Reviewed. GENERAL: Well-developed in no acute distress. HEENT: No sclera icterus. Extraocular movements grossly intact. Moist buccal mucosa. Head is atraumatic, normocephalic. ABDOMEN: Soft. Distended. Incision site clean dry and intact NEUROLOGIC: Alert and oriented. Cranial nerves II through XII grossly intact. ASSESSMENT: 1. Strangulated incisional hernia with necrotic bowel status post repair of strangulated incisional hernia, small bowel resection and aspiration of 4.5 L of ascites 2. History of Liver cirrhosis with ascites status post paracentesis 2 3. Hypokalemia improved 4. Hypoglycemia improved 5. Hyponatremia improved 6. Incisional drainage growing VRE PLAN: -Anticipate discharge tomorrow. manager marketing sales arranging antibiotics at home. Patient does not want to go to [facility]. -Continue regular diet -Infectious diseases recommending daptomycin at discharge. Patient has midline in place. -Continue pain medication as needed -Encourage incentive spirometer use -Encourage patient to increase activity level -DVT prophylaxis Lovenox and GI prophylaxis Protonix [employer] Officer note has been reviewed by physician. Signing provider agrees with the documented findings, assessment, and plan of care. Objective - Vital Signs Vital signs: Vital Signs Temp 98.6 F 01/13/22 12:14 Pulse 77 01/13/22 12:14 Resp 16 01/13/22 12:14 BP 105/71 01/13/22 12:14 Pulse Ox 97 01/13/22 12:14 Intake & Output 01/12/22 01/13/22 01/13/22 18:59 06:59 18:59 Intake Total 400 Output Total 10 20 Balance -10 380 Intake: Oral 400 Output: Drainage 10 20 Abdomen 10 20 Other: Voiding Method Toilet Toilet Diaper Diaper # Voids 2 3 1 # Bowel Movements 1 - Labs CBC & Chem 7: 01/12/22 10:55 01/11/22 08:00 Labs: Abnormal Lab Results - Last 24 Hours (Table) 01/12/22 01/13/22 01/13/22 Range/Units 19:54 07:03 10:07 POC Glucose (mg/dL) 150 H 117 H (75-99) mg/dL Coronavirus (PCR) Detected A (Not Detectd)
[2022-01-13] MEDS: THIAMINE 100 MG TAB PO SCH (16:31)
[2022-01-13 17:23] LABS: Glucose,Whole Blood 72 mg/dL (75-99)
--- NOTE | 2022-01-13 18:11 | P.PN ---
Subjective Progress Note Date: 01/13/22 Principal diagnosis: Incarcerated hernia, cirrhosis of liver Patient is seen and examined as follow up for cirrhosis of liver with ascites. SHe was admitted with abdominal pain and incarcerated umbilical hernia. She underwent repair of strangulated incisional hernia with small bowel resection on 12/29/2021. No acute changes. Denies any abdominal drainage. GLADYS drain intact with serosanguineous drainage. She's been afebrile. No nausea or vomiting. Objective - Vital Signs Vital signs: Vital Signs Temp 98.8 F 01/13/22 05:00 Pulse 84 01/13/22 05:00 Resp 18 01/13/22 05:00 BP 96/63 01/13/22 05:00 Pulse Ox 97 01/13/22 05:00 Intake & Output 01/12/22 01/13/22 01/13/22 18:59 06:59 18:59 Intake Total 400 Output Total 10 20 Balance -10 380 Intake: Oral 400 Output: Drainage 10 20 Abdomen 10 20 Other: Voiding Method Toilet Diaper # Voids 2 3 1 # Bowel Movements 1 - Exam General appearance: The patient is alert, oriented, appears in no acute distress. HET: Head is normocephalic and atraumatic. Conjunctiva pink. Sclera anicteric. Neck: Supple without lymphadenopathy. Abdomen: Soft, mild tenderness, incision with garret well approximated, clean dry and intact. Positive bowel sounds. No guarding or rigidity. GLADYS drain with serosanguineous drainage. Extremities: Normal skin color and turgor. No pedal edema Skin: No rashes, no jaundice Neurological: No focal deficits. Alert and oriented x3. - Labs CBC & Chem 7: 01/12/22 10:55 01/11/22 08:00 Labs: Abnormal Lab Results - Last 24 Hours (Table) 01/12/22 01/12/22 01/13/22 Range/Units 10:55 19:54 07:03 RBC 3.51 L (3.80-5.40) m/uL Hgb 10.7 L (11.4-16.0) gm/dL Hct 33.7 L (34.0-46.0) % Neutrophils # 8.1 H (1.3-7.7) k/uL POC Glucose (mg/dL) 150 H 117 H (75-99) mg/dL Assessment and Plan (1) Alcoholic cirrhosis of liver with ascites Narrative/Plan: 58-year-old female who presented to the emergency department with abdominal pain and umbilical hernia. She has a long-standing history of alcohol abuse with decompensated alcoholic cirrhosis of the liver with ascites. She was previously getting paracentesis every 2-3 weeks, diuretics were adjusted and patient is now having paracentesis every 4-6 weeks. This paracentesis around November 25. Patient presented to the emergency room, CT of the abdomen and pelvis showed an incarcerated umbilical hernia with concerns for ischemia/early infarction. She has been seen by Dr. Haro and is shceudled for surgery this afternoon. Patient is high risk for abdominal surgery due to her c versus a liver and ascites. This was discussed with patient. She verbalized understanding. Gastroenterology will continue to follow. Patient underwent paracentesis 01/10/22 with 2.3 L removed. Continue diuretics as ordered Current Visit: Yes Status: Acute Code(s): K70.31 - ALCOHOLIC CIRRHOSIS OF LIVER WITH ASCITES SNOMED Code(s): 528047770 (2) Incarcerated hernia Narrative/Plan: Patient admitted with incarcerated umbilical hernia with reported bowel obstruct ion was suspected ischemic/early infarction. Patient is being followed by general surgery. Status post surgical repair of stangulated incisional hernia with small bowel resection. Current Visit: Yes Status: Acute Code(s): K46.0 - UNSP ABDOMINAL HERNIA WITH OBSTRUCTION, WITHOUT GANGRENE SNOMED Code(s): 66829170 (3) Hypokalemia Narrative/Plan: resolved Current Visit: No Status: Acute Code(s): E87.6 - HYPOKALEMIA SNOMED Code(s): 80629844 (4) Enterococcus, vancomycin-resistant Narrative/Plan: Patient currently on daptomycin. Infectious disease on consult. Current Visit: Yes Status: Acute Code(s): A49.1 - STREPTOCOCCAL INFECTION, UNSPECIFIED SITE; Z16.21 - RESISTANCE TO VANCOMYCIN SNOMED Code(s): 093310409 Plan: 1. Continue symptomatic and supportive care 2. Continue per recommendations from infectious disease 3. Paracentesis as needed 4. Continue spironolactone 50 mg twice a day and Lasix 40 mg twice a day Thank you for this consultation. Patient is cleared for discharge from gastroenterology. Patient to follow-up as scheduled with Dr. Stormy Burrows I agree with the dictator's note, documented as a scribe by Sheryl Linares.
[2022-01-13] MEDS: LORATADINE 10 MG TAB PO SCH (20:23)
[2022-01-13 20:24] LABS: Glucose,Whole Blood 95 mg/dL (75-99)
--- NOTE | 2022-01-13 22:16 | P.PN ---
Subjective Progress Note Date: 01/13/22 Principal diagnosis: Abdominal wall cellulitis Patient is a 66-year-old female presented to hospital with abdominal pain has been diagnosed with incarcerated hernia status post laparotomy resection of the small bowel and repair of the hernia, patient was noticed to have some drainage from abdominal incision which was cultured and grew VRE. On today's evaluation that is 01/13/2022, the patient continues to be afebrile, patient denies abdominal pain and no further drainage from the incision , the patient denies chest pain shortness of breath or cough and no diarrhea Objective - Vital Signs Vital signs: Vital Signs Temp 98.8 F 01/13/22 05:00 Pulse 84 01/13/22 05:00 Resp 18 01/13/22 05:00 BP 96/63 01/13/22 05:00 Pulse Ox 97 01/13/22 05:00 Intake & Output 01/12/22 01/13/22 01/13/22 18:59 06:59 18:59 Intake Total 400 Output Total 10 20 Balance -10 380 Intake: Oral 400 Output: Drainage 10 20 Abdomen 10 20 Other: Voiding Method Toilet Diaper # Voids 2 3 1 # Bowel Movements 1 - Exam GENERAL DESCRIPTION: An elderly female lying in bed in no distress RESPIRATORY SYSTEM: Unlabored breathing , decreased breath sounds at bases HEART: S1 S2 regular rate and rhythm , ABDOMEN: Soft , midline abdominal incision is dry with no drainage EXTREMITIES: No edema feet - Labs CBC & Chem 7: 01/12/22 10:55 01/11/22 08:00 Labs: Abnormal Lab Results - Last 24 Hours (Table) 01/12/22 01/12/22 01/13/22 Range/Units 10:55 19:54 07:03 RBC 3.51 L (3.80-5.40) m/uL Hgb 10.7 L (11.4-16.0) gm/dL Hct 33.7 L (34.0-46.0) % Neutrophils # 8.1 H (1.3-7.7) k/uL POC Glucose (mg/dL) 150 H 117 H (75-99) mg/dL Assessment and Plan (1) Superficial incisional surgical site infection Current Visit: Yes Status: Acute Code(s): T81.41XA - INFCT FOL A PROC, SUPERFIC INCISIONAL SURGICAL SITE, INIT SNOMED Code(s): 052086142 Plan: 1patient with recent laparotomy for incarcerated hernia in this patient noticed to have more drainage from the abdominal incision culture positive for VRE possible mild superficial infection clinically not behaving as deep infection , patient did get a midline and will continue with the daptomycin x 7 days on discharge and close outpatient follow-up Time with Patient: Less than 30
[2022-01-14] MEDS: HYDROcodone/APAP 5-325MG 1 EACH TAB PO PRN (01:19)
[2022-01-14] MEDS: LEVOTHYROXINE 50 MCG TAB PO SCH (06:18)
[2022-01-14 07:30] LABS: Glucose,Whole Blood 105 mg/dL (75-99)
[2022-01-14] MEDS: MAGNESIUM OXIDE 400 MG TAB PO SCH (09:00)
[2022-01-14] MEDS: ZINC SULFATE 220 MG CAP PO SCH (09:00)
[2022-01-14] MEDS: MULTIVITAMINS, THERA 1 EACH TAB PO SCH (09:00)
[2022-01-14] MEDS: CHOLECALCIFEROL 25 MCG (1000 IU) TABLET PO SCH (09:00)
[2022-01-14] MEDS: SPIRONOLACTONE 25 MG TAB PO SCH (09:00)
[2022-01-14] MEDS: PANTOPRAZOLE 40 MG TABLET PO SCH (09:00)
[2022-01-14] MEDS: FOLIC ACID 1 MG TAB PO SCH (09:01)
[2022-01-14] MEDS: FUROSEMIDE 40 MG TAB PO SCH (09:01)
[2022-01-14] MEDS: ASCORBIC ACID 500 MG TAB PO SCH (09:01)
[2022-01-14] MEDS: ENOXAPARIN 40 MG/0.4 ML SYRINGE SQ SCH (09:02)
[2022-01-14] MEDS: MIDODRINE 5 MG TAB PO SCH ×2 (09:02→13:03)
[2022-01-14 12:20] VITALS: BP 103/77; PULSE 78; TEMP 97.6
[2022-01-14 12:33] LABS: Glucose,Whole Blood 78 mg/dL (75-99)
--- NOTE | 2022-01-14 13:32 | P.DS ---
Providers Date of admission: 12/29/21 09:50 Expected date of discharge: 01/14/22 Attending physician: Pankaj Haro Consults: 12/29/21 09:46 Consult Physician Urgent Consulting Provider: Stanton Camara Consult Reason/Comments: Medical management Do you want consulting provider notified?: Yes 12/29/21 13:52 Consult Physician Routine Consulting Provider: Suad Burrows Consult Reason/Comments: known, Hx liver cirrhosis Do you want consulting provider notified?: Already Contacted 01/09/22 21:18 Consult Physician Routine Consulting Provider: Sanjay Soler Consult Reason/Comments: VRE wound cx Do you want consulting provider notified?: Yes, Notify in am Primary care physician: Stanton Camara MD Hospital Course: Discharge diagnosis 1. Strangulated incisional hernia with necrotic bowel status post repair of strangulated incisional hernia, small bowel resection and aspiration of 4.5 L of ascites 2. History of Liver cirrhosis with ascites status post paracentesis 2 3. Hypokalemia improved 4. Hypoglycemia improved 5. Hyponatremia improved 6. Incisional drainage growing VRE Hospital course This is a 66-year-old female with a known history of incisional hernia. Patient reports that she had increase in abdominal pain after eating dinner. She had issues with constipation. Since then she has been having nausea and vomiting. She reports that the hernia on the right side of her abdomen at the incision site has become bigger and harder. She is having increased abdominal pain. She had a computed tomography scan of abdomen and pelvis consistent with acute mechanical high-grade small bowel obstruction with transition point at the anterior abdominal wall midline hernia with suspected bowel ischemia/early infarction and incarceration within the hernia. No sharri pneumatosis, free peritoneal air or portal venal gas. Patient is status post repair of strangulated incisional hernia, small bowel resection and aspiration of 4.5 L of ascites on 12/29/21. Patient did require 2 paracentesis during her hospitalization. Patient developed VRE at the incision site. She was seen by infectious disease. The recommending a week of daptomycin. Patient is tolerating diet. She denies any abdominal pain. She is having regular bowel movements. She is ambulating. She is afebrile. She is stable for discharge. She's been cleared by consulting physicians for discharge. Please refer to chart for any further details. Physician Motor Installer note has been reviewed by physician. Signing provider agrees with the documented findings, assessment, and plan of care. Patient Condition at Discharge: Stable Plan - Discharge Summary Discharge Rx Participant: No New Discharge Prescriptions: New DAPTOmycin [Cubicin] 400 mg IVPB Q24H 7 Days each Loratadine [Claritin] 5 mg PO HS #0 tab Ascorbic Acid [Vitamin C] 500 mg PO BID tab Zinc Sulfate [Orazinc] 220 mg PO DAILY #30 cap Cholecalciferol [Vitamin D3 (25 Mcg = 1000 Iu)] 50 mcg PO DAILY tablet Continue Vitamin B Complex 1 cap PO DAILY@1700 Albuterol Sulfate [Ventolin HFA] 1 - 2 puff INHALATION RT-DAILY PRN PRN Reason: Shortness Of Breath Levothyroxine Sodium [Synthroid] 50 mcg PO AC-BRKFST Potassium Chloride ER [K-Dur 20] 10 meq PO TID Folic Acid 0.4 mg PO BID@0900,1700 Multivitamin [Multivitamins Adult Gummies] 1 tab PO DAILY rOPINIRole HCL [Requip] 0.5 mg PO HS PRN PRN Reason: RLS Pantoprazole [Protonix] 40 mg PO AC-BRKFST tab Magnesium Oxide [Mag-Ox] 250 mg PO BID@0900,1700 Thiamine [Vitamin B-1] 100 mg PO DAILY@1700 Sennosides [Senna] 8.6 mg PO BID Midodrine [ProAmatine] 5 mg PO AC-TID@07,11,1630 Changed Spironolactone [Aldactone] 50 mg PO 0800,1700 #0 Furosemide [Lasix] 40 mg PO 0900,1600 #0 Discharge Medication List Multivitamin [Multivitamins Adult Gummies] 1 tab PO DAILY 03/15/21 [History] Vitamin B Complex 1 cap PO DAILY@1700 06/19/21 [History] rOPINIRole HCL [Requip] 0.5 mg PO HS PRN 06/19/21 [History] Pantoprazole [Protonix] 40 mg PO AC-BRKFST tab 06/24/21 [Rx] Albuterol Sulfate [Ventolin HFA] 1 - 2 puff INHALATION RT-DAILY PRN 12/29/21 [History] Folic Acid 0.4 mg PO BID@0900,1700 12/29/21 [History] Levothyroxine Sodium [Synthroid] 50 mcg PO AC-BRKFST 12/29/21 [History] Magnesium Oxide [Mag-Ox] 250 mg PO BID@0900,1700 12/29/21 [History] Midodrine [ProAmatine] 5 mg PO AC-TID@07,11,1630 12/29/21 [History] Potassium Chloride ER [K-Dur 20] 10 meq PO TID 12/29/21 [History] Sennosides [Senna] 8.6 mg PO BID 12/29/21 [History] Thiamine [Vitamin B-1] 100 mg PO DAILY@1700 12/29/21 [History] Ascorbic Acid [Vitamin C] 500 mg PO BID tab 01/14/22 [Rx] Cholecalciferol [Vitamin D3 (25 Mcg = 1000 Iu)] 50 mcg PO DAILY tablet 01/14/22 [Rx] DAPTOmycin [Cubicin] 400 mg IVPB Q24H 7 Days each 01/14/22 [Rx] Furosemide [Lasix] 40 mg PO 0900,1600 #0 01/14/22 [Rx] Loratadine [Claritin] 5 mg PO HS #0 tab 01/14/22 [Rx] Spironolactone [Aldactone] 50 mg PO 0800,1700 #0 01/14/22 [Rx] Zinc Sulfate [Orazinc] 220 mg PO DAILY #30 cap 01/14/22 [Rx] Follow up Appointment(s)/Referral(s): Stanton Camara MD [Primary Care Provider] - 1 Week () Suad Burrows MD [STAFF PHYSICIAN] - [address] [facility], [NON-STAFF] - As Needed [facility] [NON-STAFF] - 1 Week Pankaj Haro MD [STAFF PHYSICIAN] - 1 Week Patient Instructions/Handouts: Daptomycin (By injection), Coronavirus Disease 2019 (COVID-19), [place] Drain Care (DC), Vancomycin Resistant Enterococcus (DC), Ascites (DC), Fall Prevention (DC), Acute Wounds (DC), Paracentesis (DC), Bowel Resection (DC) Activity/Diet/Wound Care/Special Instructions: No lifting over 10 pounds Shower daily. No soaking or tub baths for 2 weeks Very light activity until you are reevaluated at your follow up appointment with your surgeon Keep a log of GLADYS drain output and bring with you to your follow-up appointment Milk/strip drains 2-3 times a day Discharge Disposition: HOME WITH HOME HEALTH SERVICES
--- NOTE | 2022-01-14 15:37 | P.PN ---
Subjective Progress Note Date: 01/14/22 Shyann Wynn is a 66 yo F with PMH of alcoholic cirrhosis with ascites, GERD, hypothyroidism who is admitted with incarcerated umbilical hernia. She is POD#1, has NG tube in place with bilious output, reports aching abdominal pain. She denies nausea. Pt hypotensive postop which is improved after IV fluids and resuming her home midodrine. WBC today 14k, Hgb 11, Cr 0.9, albumin 2.3. She did have 4.5 L ascitic fluid removed with surgery yesterday. 12/31/2021 afebrile, T-max 99.6, WBC decreased to 12.18.Borderline hypotension on Midodrin. Mean arterial pressures high 60s to mid 70s. Minimal NG output. Denies abdominal pain. Denies nausea ,vomiting. Complains of irritation of throat secondary to NG tube. Potassium 3.3. Renal function stable. Urine culture negative. 01/03/2022 tolerating full liquid diet, denies nausea or vomiting . Positive bowel movement.continues on Zosyn.shortness of breath last night, requiring 2 L nasal cannula, currently maintaining O2 sats in the high 90s. Paracentesis pending. Hemoglobin pending. Maintained on Midodrin ,blood pressure improved. Sitting up at side of bed, minimal ambulation. Receiving potassium supplementation for potassium level 3.3, magnesium level pending. Midline placement pending. Blood sugars stable. Sodium 1:30, recent albumin 2.3. Denies chest pain, palpitations. 01/04/2022 sitting up in chair, complaining of incisional tenderness, reports increased shortness of breath during the night, awaiting a paracentesis. Received pre-albumin. Sodium improved, 135. Receiving potassium and magnesium supplements for potassium 2.8, magnesium 1.4. Denies chest pain, palpitations. 01/05/2022 completed paracentesis yesterday with limited 0.2 L of serous fluid drained. Tolerated procedure well. Denies chest pain, palpitations or shortness of breath. Patient is maintaining O2 sats of 100% on 2 L nasal cannula which can be titrated off. Passing flatus. Blood sugar decrease this morning is 68, currently in the high 90s, tolerating full liquid diet. Denies nausea or vomiting. Denies pain, reports surgical tenderness. Denies chest pain, palpitations. Significant weakness and agreeable to subacute rehab. at discharge. Maintained on Zosyn. Afebrile. Electrolytes within normal limits, receiving magnesium supplementation per magnesium level I.7. Renal function stable. 01/06/2022 positive bowel movement Monday, passing flatus yesterday and today. Complains of being up all night secondary to diuretics administered late- rescheduled. Proximal incision with brownish drainage. T-max 99, WBC 7.74. Consuming 75% of regular diet with no nausea or vomiting. Blood sugars controlled. Potassium 3.5 ,Magnesium 1.7. Oxygen has been weaned off, maintaining O2 sats in the high 90s on room air. 01/07/2022 sitting up in chair, reporting shortness of breath, negative congestion or cough, reporting nasal congestion. Denies chest pain, palpitations. T-max 99.2, normal WBC. Decreasing surgical incisional drainage- Wound culture pending. Maintained on Zosyn. Tolerating diet intake with no nausea or vomiting. Positive bowel movement this morning. 01-10-22 repeat paracentesis pending. Sitting up in chair, T-max 99.3. Wound culture reported enterococcus faecium VRE. Antibiotics adjusted to daptomycin. Denies surgical pain, reports pain only at GLADYS drain site. Labs pending. Denies chest pain, palpitations or shortness of breath. 01/11/2022 status post paracentesis yesterday with approximately 2.3 L of straw- colored fluid drained. Tolerated procedure well. Antibiotics yesterday adjusted daptomycin regarding VRE reported from the surgical site drainage cultures. Evaluated by infectious disease, blood cultures obtained. Afebrile, WBC increased to 12.93. Renal function stable. Denies surgical pain. Denies shortness of breath. Denies chest pain or palpitations. 01/12/22 continues on spironolactone and Lasix .sitting up in chair, reports bowel movements soft and formed. Denies pain, denies shortness of breath. Maintained on IV antibiotics as per infectious disease. Afebrile, labs pending. Consuming 25-50% of diet with no nausea or vomiting. Denies chest pain, palpitations. Denies lightheadedness or dizziness or focal deficits. 01/13/2022 no overnight events. Afebrile, tested positive for COVID-19, asymptomatic. Maintaining O2 sats in the high 90s on room air. Denies chest pain, palpitations or shortness of breath. Denies cough. Denies abdominal pain. Denies nausea or vomiting. Continues on daptomycin as per ID. Discharge planning in progress. 01/14/22 continues on IV antibiotics as per infectious disease. significant clinical improvement. Tolerating diet with no nausea vomiting or diarrhea. Positive bowel movements. Afebrile. Vital signs stable. Denies chest pain, palpitations or shortness of breath. Discharge planning in progress, case management attempting to locate a nearby subacute rehab that will accommodate patient, otherwise patient will be discharged home later today as per primary/general surgery. Objective - Vital Signs Vital signs: Vital Signs Temp 97.6 F 01/14/22 12:19 Pulse 78 01/14/22 12:19 Resp 16 01/14/22 05:00 BP 103/77 01/14/22 12:19 Pulse Ox 94 L 01/14/22 12:19 Intake & Output 01/13/22 01/14/22 01/14/22 18:59 06:59 18:59 Intake Total 1100 240 Output Total 4 Balance 1100 236 Intake: Oral 1100 240 Output: Urine 3 Stool 1 Other: Voiding Method Toilet Toilet Toilet Diaper Diaper Diaper # Voids 4 8 - Exam Gen: sitting up in chair, no acute distress HEENT: normocephalic, atraumatic,MMM Neck: supple, no JVD CV: RRR, no murmur Lungs: Unlabored ,Normal effort,clear thoughout Abd; soft, distended, status post surgery, surgical site clean, dry , intact with garret, + bowel sounds Neuro: alert and oriented x3, no focal deficits Skin: warm and dry - Labs CBC & Chem 7: 01/12/22 10:55 01/11/22 08:00 Labs: Abnormal Lab Results - Last 24 Hours (Table) 01/13/22 01/14/22 Range/Units 17:21 07:25 POC Glucose (mg/dL) 72 L 105 H (75-99) mg/dL Microbiology - Last 24 Hours (Table) 01/12/22 15:36 Blood Culture - Preliminary Blood No Growth after 24 hours Assessment and Plan Assessment: Incarcerated umbilical hernia status post repair, management per surgery. Abdominal wound culture reporting enterococcus VRE. Covid-19, PCR positive, asymptomatic Alcoholic cirrhosis, ascites, status post paracentesis. Hepatorenal syndrome, hypotension, continues on Midodrin Hyponatremia, improving Hypoalbuminemia Hypokalemia Hypomagnesemia Midline placed 01/04/2022 Increase activity as tolerated. Discharge planning in progress as per primary. IV antibiotics at DC as per infectious disease. Maintain aggressive pulmonary toileting with incentive spirometer reinforced. Follow-up with PCP in 1 week if going home or 1 week after dc from sub acute rehab. The impression and plan of care has been dictated as directed. : I performed a history and examination of this patient, discussed the same with the dictator. I agree with the dictator's note ,documented as a scribe. Any additional findings or plans will be noted.
--- NOTE | 2022-01-14 16:24 | P.PN ---
Subjective Progress Note Date: 01/14/22 Principal diagnosis: Abdominal wall cellulitis Patient is a 66-year-old female presented to hospital with abdominal pain has been diagnosed with incarcerated hernia status post laparotomy resection of the small bowel and repair of the hernia, patient was noticed to have some drainage from abdominal incision which was cultured and grew VRE. On today's evaluation that is 01/14/2022, the patient denies any fever or any chills, patient denies chest pain shortness of breath or cough, the patient denies abdominal pain and no further drainage from the incision , and denies diarrhea Objective - Vital Signs Vital signs: Vital Signs Temp 97.6 F 01/14/22 12:19 Pulse 78 01/14/22 12:19 Resp 16 01/14/22 05:00 BP 103/77 01/14/22 12:19 Pulse Ox 94 L 01/14/22 12:19 Intake & Output 01/13/22 01/14/22 01/14/22 18:59 06:59 18:59 Intake Total 1100 240 Output Total 4 Balance 1100 236 Intake: Oral 1100 240 Output: Urine 3 Stool 1 Other: Voiding Method Toilet Toilet Toilet Diaper Diaper Diaper # Voids 4 8 - Exam GENERAL DESCRIPTION: An elderly female lying in bed in no distress RESPIRATORY SYSTEM: Unlabored breathing , decreased breath sounds at bases HEART: S1 S2 regular rate and rhythm , ABDOMEN: Soft , midline abdominal incision is dry with no drainage EXTREMITIES: No edema feet - Labs CBC & Chem 7: 01/12/22 10:55 01/11/22 08:00 Labs: Abnormal Lab Results - Last 24 Hours (Table) 01/13/22 01/14/22 Range/Units 17:21 07:25 POC Glucose (mg/dL) 72 L 105 H (75-99) mg/dL Microbiology - Last 24 Hours (Table) 01/12/22 15:36 Blood Culture - Preliminary Blood No Growth after 24 hours Assessment and Plan (1) Superficial incisional surgical site infection Current Visit: Yes Status: Acute Code(s): T81.41XA - INFCT FOL A PROC, SUPERFIC INCISIONAL SURGICAL SITE, INIT SNOMED Code(s): 046771003 Plan: 1patient with recent laparotomy for incarcerated hernia in this patient noticed to have more drainage from the abdominal incision culture positive for VRE possible mild superficial infection clinically not behaving as deep infection , patient did get a midline and the patient has shown clinical improvement and will will continue with the daptomycin x 7 days on discharge to finish her course of therapy Time with Patient: Less than 30
== END 2022-01-14 16:35 | disposition home health service (06) | DRG 329 ==
LOC: EC 07:28 → 4SSUR 09:50 → 5NMEDONC 01-04 19:04
PROVIDERS: ADMIT Surgery; ATTEND Surgery
PROC: 0D9670Z Drainage of Stomach with Drainage Device, Via Natural or Artificial Opening (ICD-10-PCS; 2021-12-29)
PROC: 0W9F0ZZ Drainage of Abdominal Wall, Open Approach (ICD-10-PCS; principal; 2021-12-29 10:05)
PROC: 0DT80ZZ Resection of Small Intestine, Open Approach (ICD-10-PCS; principal; 2021-12-29 10:05)
PROC: 0WQF0ZZ Repair Abdominal Wall, Open Approach (ICD-10-PCS; principal; 2021-12-29 10:05)
PROC: 0W9G3ZZ Drainage of Peritoneal Cavity, Percutaneous Approach (ICD-10-PCS; 2022-01-04)
PROC: 0W9G3ZZ Drainage of Peritoneal Cavity, Percutaneous Approach (ICD-10-PCS; 2022-01-10)
DX: K43.0 Incisional hernia with obstruction, without gangrene (principal); K55.029 Acute infarction of small intestine, extent unspecified; K76.7 Hepatorenal syndrome; U07.1 COVID-19; T81.41XA Infection following a procedure, superficial incisional surgical site, initial encounter; K76.6 Portal hypertension; L03.311 Cellulitis of abdominal wall; E87.1 Hypo-osmolality and hyponatremia; Z16.21 Resistance to vancomycin; K70.31 Alcoholic cirrhosis of liver with ascites; B95.2 Enterococcus as the cause of diseases classified elsewhere; K91.1 Postgastric surgery syndromes; F10.10 Alcohol abuse, uncomplicated; I95.81 Postprocedural hypotension; E87.6 Hypokalemia; E88.09 Other disorders of plasma-protein metabolism, not elsewhere classified; E16.2 Hypoglycemia, unspecified; E03.9 Hypothyroidism, unspecified; E83.42 Hypomagnesemia; G25.81 Restless legs syndrome; K42.0 Umbilical hernia with obstruction, without gangrene; M79.7 Fibromyalgia; T50.2X5A Adverse effect of carbonic-anhydrase inhibitors, benzothiadiazides and other diuretics, initial encounter; Z79.890 Hormone replacement therapy; Z79.899 Other long term (current) drug therapy; Z80.3 Family history of malignant neoplasm of breast; Z82.49 Family history of ischemic heart disease and other diseases of the circulatory system; Z83.3 Family history of diabetes mellitus; Z86.73 Personal history of transient ischemic attack (TIA), and cerebral infarction without residual deficits; Z87.891 Personal history of nicotine dependence; Z90.710 Acquired absence of both cervix and uterus; Z98.84 Bariatric surgery status; Z98.1 Arthrodesis status; Z87.440 Personal history of urinary (tract) infections; Z88.8 Allergy status to other drugs, medicaments and biological substances; Z98.890 Other specified postprocedural states; Z91.041 Radiographic dye allergy status
CPT/HCPCS: 36410; 36415; 49083; 71045; 74177; 76705; 76937; 80048; 80053; 81001; 82150; 83036; 83605; 83690; 83735; 84132; 85025; 85027; 85610; 86850; 86900; 86901; 87040; 87070; 87075; 87077; 87086; 87186; 87205; 87635; 88302; 88307; 96374; 96375; 99285

== ENCOUNTER 2022-01-16 17:11 | Emergency (ER) | payer MEDICARE ==
--- NOTE | 2022-01-16 19:42 | ED ---
General Adult HPI - General Chief complaint: Abdominal Pain Stated complaint: Post Op Pain, Constipation, Weakness, Abd Pain Time Seen by Provider: 01/16/22 19:04 Source: patient Mode of arrival: ambulatory Limitations: no limitations - History of Present Illness Initial comments: This 66-year-old female who was discharged here on Monday presents to the emergency department with increasing abdominal discomfort. She states she is currently not really expressing any abdominal pain but states she feels a little bit more bloated than usual. Patient states she presented here a couple weeks ago and was admitted to the hospital where she was diagnosed with a strain related hernia and underwent bowel resection surgery. Patient states she has been experiencing increased abdominal pain and discomfort since. Patient states her pain as aching in nature and states it is 6/10. Patient states she thought she was constipated, however she states she has had 3 "good-sized" bowel movements today. She states she is currently taking a stool softener daily. Patient states she has had a history of liver cirrhosis 1 year and has been getting abdominal paracentesis is performed every 6 months up until she was admitted to the hospital where she had 3 performed in the 2 weeks she was admitted to the hospital. Patient states she does currently take a water pill that she has been retaining fluid in her ankles over the last couple weeks- she states her swelling in her ankles is the same now as it was when she was discharged couple of days ago. Patient denies any chest pain, shortness of breath, fever, cough, rash, nausea, vomiting, change in bladder, change in appetite, lightheadedness, dizziness, headache, change in vision. Patient states she does have an appointment on 01/21 with and to follow-up with her primary care provider this . Patient states she does still have a drain placed from her operation and denies any erythema, warmth, drainage coming from drain placement incision site. Patient states she still has abdominal garret in place and denies any increased erythema, warmth or pain around stable incision site. Patient states she currently is supposed to give herself daptomycin antibiotic into her IV site in her left arm daily for the next week, however she states she has not given herself her antibiotic for today yet for an infection at her incision site. She states she did have her dose of antibiotic yesterday. - Related Data Home Medications Medication Instructions Recorded Confirmed Multivitamin [Multivitamins Adult 1 tab PO DAILY 03/15/21 12/29/21 Gummies] Vitamin B Complex 1 cap PO DAILY@1700 06/19/21 12/29/21 rOPINIRole HCL [Requip] 0.5 mg PO HS PRN 06/19/21 12/29/21 Albuterol Sulfate [Ventolin HFA] 1 - 2 puff INHALATION RT-DAILY PRN 12/29/21 12/29/21 Folic Acid 0.4 mg PO BID@0900,1700 12/29/21 12/29/21 Levothyroxine Sodium [Synthroid] 50 mcg PO AC-BRKFST 12/29/21 12/29/21 Magnesium Oxide [Mag-Ox] 250 mg PO BID@0900,1700 12/29/21 12/29/21 Midodrine [ProAmatine] 5 mg PO AC-TID@07,11,1630 12/29/21 12/29/21 Potassium Chloride ER [K-Dur 20] 10 meq PO TID 12/29/21 12/29/21 Sennosides [Senna] 8.6 mg PO BID 12/29/21 12/29/21 Thiamine [Vitamin B-1] 100 mg PO DAILY@1700 12/29/21 12/29/21 Previous Rx's Medication Instructions Recorded Pantoprazole [Protonix] 40 mg PO AC-BRKFST tab 06/24/21 Ascorbic Acid [Vitamin C] 500 mg PO BID tab 01/14/22 Cholecalciferol [Vitamin D3 (25 50 mcg PO DAILY tablet 01/14/22 Mcg = 1000 Iu)] DAPTOmycin [Cubicin] 400 mg IVPB Q24H 7 Days each 01/14/22 Furosemide [Lasix] 40 mg PO 0900,1600 #0 01/14/22 Loratadine [Claritin] 5 mg PO HS #0 tab 01/14/22 Spironolactone [Aldactone] 50 mg PO 0800,1700 #0 01/14/22 Zinc Sulfate [Orazinc] 220 mg PO DAILY #30 cap 01/14/22 Allergies Allergy/AdvReac Type Severity Reaction Status Date / Time furosemide [From Lasix] AdvReac Causes BP Verified 01/16/22 17:26 to drop too quickly, still takes at home Gadolinium-Containing AdvReac Flushing Verified 01/16/22 17:26 Contrast Medi Review of Systems ROS Statement: Those systems with pertinent positive or pertinent negative responses have been documented in the HPI. ROS Other: All systems not noted in ROS Statement are negative. 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 History of Any Multi-Drug Resistant Organisms: None Reported Date of last positivie culture/infection: 01/06/22 MDRO Source:: Abd incision Past Surgical History: Bariatric Surgery, Cholecystectomy, Hysterectomy, Orthopedic Surgery, Tubal Ligation Additional Past Surgical History / Comment(s): HX GASTRIC BYPASS, PAIN CLINIC PROCEDURE, c3-7 fusions, colonoscopy. Past Anesthesia/Blood Transfusion Reactions: No Reported Reaction Additional Past Anesthesia/Blood Transfusion Reaction / Comment(s): REQUIRE ABOVE AVERAGE LIDOCAINE DOSE. Past Psychological History: No Psychological Hx Reported Smoking Status: Former smoker Past Alcohol Use History: None Reported Past Drug Use History: None Reported - Past Family History Father Family Medical History: Diabetes Mellitus, Myocardial Infarction ([place]) Additional Family Medical History / Comment(s): Father is . Mother Family Medical History: Cancer, Myocardial Infarction ([place]) Additional Family Medical History / Comment(s): Breast cancer. Mother is living. General Exam Limitations: no limitations General appearance: alert, in no apparent distress Head exam: Present: atraumatic, normocephalic, normal inspection Eye exam: Present: normal appearance, PERRL, EOMI. Absent: scleral icterus, conjunctival injection, periorbital swelling Pupils: Present: normal accommodation ENT exam: Present: normal exam, mucous membranes moist Neck exam: Present: normal inspection. Absent: tenderness, meningismus, lymphadenopathy Respiratory exam: Present: normal lung sounds bilaterally. Absent: respiratory distress, wheezes, rales, rhonchi, stridor, chest wall tenderness Cardiovascular Exam: Present: regular rate, normal rhythm, normal heart sounds. Absent: systolic murmur, diastolic murmur, rubs, gallop, clicks GI/Abdominal exam: Present: soft, tenderness (Minimally tender to palpation in all quadrants- garret and GLADYS drain intact), normal bowel sounds, other (Patient with drain tube coming from right side of abdomen- no erythema, warmth, or sign of infection. Patient with midline incision garret without any erythema, warmth, drainage or sign of infection). Absent: distended, guarding, rebound, rigid Extremities exam: Present: normal inspection, full ROM, normal capillary refill, pedal edema (Patient with 2+ bilateral lower extremity pitting edema- states has been present since her last admission to this hospital a few weeks ago- states was the same on discharge 2 days ago). Absent: tenderness, joint swelling, calf tenderness Back exam: Present: full ROM. Absent: CVA tenderness (R), CVA tenderness (L), paraspinal tenderness, vertebral tenderness Neurological exam: Present: alert, oriented X3, CN II-XII intact Psychiatric exam: Present: normal affect, normal mood Skin exam: Present: warm, dry, intact, normal color. Absent: rash Course Vital Signs 01/16/22 01/16/22 17:23 20:14 Temperature 99 F Pulse Rate 22 L 84 Respiratory 107 H 18 Rate Blood Pressure 107/74 103/76 O2 Sat by Pulse 97 97 Oximetry Medical Decision Making - Medical Decision Making This 66-year-old female presents emergency department with increased abdominal discomfort over the last 2 days since being discharged from the hospital. P atient without any leukocytosis. Coagulation unremarkable. CT abdomen and pelvis with contrast impression: Moderate-sized left pleural effusion with left lower lobe atelectasis. This appears similar told exam. There is some improvement in right pleural effusion compared to old. Moderate ascites unchanged. Postsurgical changes with skin garret and drainage catheter over the anterior abdomen. There is reduction of the incarcerated ventral hernia compared to old exam. There is clearing of the dilated bowel. There is some mild wall thickening of the proximal sigmoid colon that could be some mild nonspecific colitis. Previous bowel surgery noted. There is subcutaneous edema around the abdomen slightly increased. Patient discharged home and instructed to continue her daptomycin antibiotic as directed. Patient stated that she had not yet had her dose for today, therefore she received her dose here in the emergency department prior to discharge. Patient instructed to continue her stool softener as directed. Strict return precautions were discussed. Patient verbally agreed to return if any new, worsening or concerning symptoms arise. Patient instructed to follow up at her appointment she has scheduled this week with her surgeon and primary care doctor. Patient sent home in stable condition. Case discussed in detail with my attending, . - Lab Data Result diagrams: 01/16/22 20:10 01/16/22 20:10 Lab Results 01/16/22 01/16/22 01/16/22 Range/Units 20:10 20:10 20:10 WBC 9.4 (3.8-10.6) k/uL RBC 3.58 L (3.80-5.40) m/uL Hgb 10.8 L (11.4-16.0) gm/dL Hct 34.1 (34.0-46.0) % MCV 95.2 (80.0-100.0) fL MCH 30.3 (25.0-35.0) pg MCHC 31.8 (31.0-37.0) g/dL RDW 15.2 (11.5-15.5) % Plt Count 381 (150-450) k/uL MPV 8.1 Neutrophils % 71 % Lymphocytes % 18 % Monocytes % 6 % Eosinophils % 2 % Basophils % 1 % Neutrophils # 6.7 (1.3-7.7) k/uL Lymphocytes # 1.7 (1.0-4.8) k/uL Monocytes # 0.6 (0-1.0) k/uL Eosinophils # 0.2 (0-0.7) k/uL Basophils # 0.1 (0-0.2) k/uL PT 10.9 (9.0-12.0) sec INR 1.0 (<1.2) APTT 25.9 (22.0-30.0) sec Sodium 133 L (137-145) mmol/L Potassium 4.2 (3.5-5.1) mmol/L Chloride 98 (98-107) mmol/L Carbon Dioxide 34 H (22-30) mmol/L Anion Gap 1 mmol/L BUN 17 (7-17) mg/dL Creatinine 0.74 (0.52-1.04) mg/dL Est GFR (CKD-EPI)AfAm >90 (>60 ml/min/1.73 sqM) Est GFR (CKD-EPI)NonAf 84 (>60 ml/min/1.73 sqM) Glucose 92 (74-99) mg/dL Plasma Lactic Acid Malachi (0.7-2.0) mmol/L Calcium 8.1 L (8.4-10.2) mg/dL Total Bilirubin 0.5 (0.2-1.3) mg/dL AST 39 H (14-36) U/L ALT 18 (4-34) U/L Alkaline Phosphatase 115 (38-126) U/L NT-Pro-B Natriuret Pep pg/mL Total Protein 5.3 L (6.3-8.2) g/dL Albumin 2.6 L (3.5-5.0) g/dL Lipase 71 (23-300) U/L 01/16/22 01/16/22 Range/Units 20:10 20:10 WBC (3.8-10.6) k/uL RBC (3.80-5.40) m/uL Hgb (11.4-16.0) gm/dL Hct (34.0-46.0) % MCV (80.0-100.0) fL MCH (25.0-35.0) pg MCHC (31.0-37.0) g/dL RDW (11.5-15.5) % Plt Count (150-450) k/uL MPV Neutrophils % % Lymphocytes % % Monocytes % % Eosinophils % % Basophils % % Neutrophils # (1.3-7.7) k/uL Lymphocytes # (1.0-4.8) k/uL Monocytes # (0-1.0) k/uL Eosinophils # (0-0.7) k/uL Basophils # (0-0.2) k/uL PT (9.0-12.0) sec INR (<1.2) APTT (22.0-30.0) sec Sodium (137-145) mmol/L Potassium (3.5-5.1) mmol/L Chloride (98-107) mmol/L Carbon Dioxide (22-30) mmol/L Anion Gap mmol/L BUN (7-17) mg/dL Creatinine (0.52-1.04) mg/dL Est GFR (CKD-EPI)AfAm (>60 ml/min/1.73 sqM) Est GFR (CKD-EPI)NonAf (>60 ml/min/1.73 sqM) Glucose (74-99) mg/dL Plasma Lactic Acid Malachi 1.8 (0.7-2.0) mmol/L Calcium (8.4-10.2) mg/dL Total Bilirubin (0.2-1.3) mg/dL AST (14-36) U/L ALT (4-34) U/L Alkaline Phosphatase (38-126) U/L NT-Pro-B Natriuret Pep 873 pg/mL Total Protein (6.3-8.2) g/dL Albumin (3.5-5.0) g/dL Lipase (23-300) U/L Disposition Clinical Impression: Gastritis Disposition: HOME SELF-CARE Condition: Stable Instructions (If sedation given, give patient instructions): Gastritis (ED) Additional Instructions: Please follow-up with your surgeon and primary care provider at your appointment you have scheduled this week. Return to the emergency department with any new, worsening or concerning symptoms. Continue using antibiotic at home through your IV. Continue using your stool softener as directed. Is patient prescribed a controlled substance at d/c from ED?: No Referrals: Stanton Camara MD [Primary Care Provider] - 1-2 days Time of Disposition: 21:34
[2022-01-16 20:18] VITALS: RESP 18
[2022-01-16 20:20] LABS: Basophils # (A) 0.1 k/uL (0-0.2); Basophils % (A) 1 %; Eosinophils # (A) 0.2 k/uL (0-0.7); Eosinophils % (A) 2 %; HCT 34.1 % (34.0-46.0); HGB 10.8 gm/dL (11.4-16.0); Lymphocytes # (A) 1.7 k/uL (1.0-4.8); Lymphocytes % (A) 18 %; MCH 30.3 pg (25.0-35.0); MCHC 31.8 g/dL (31.0-37.0); MCV 95.2 fL (80.0-100.0); Mean Platelet Volume 8.1; Monocytes # (A) 0.6 k/uL (0-1.0); Monocytes % (A) 6 %; Neutrophils # (A) 6.7 k/uL (1.3-7.7); Neutrophils % (A) 71 %; Platelet Count 381 k/uL (150-450); RBC 3.58 m/uL (3.80-5.40); RDW 15.2 % (11.5-15.5); WBC 9.4 k/uL (3.8-10.6)
[2022-01-16 20:31] LABS: ALT 18 U/L (4-34); AST 39 U/L (14-36); African American GFR (CKD) >90 (>60 ml/min/1.73 sqM); Albumin 2.6 g/dL (3.5-5.0); Alkaline Phosphatase 115 U/L (38-126); Anion Gap 1 mmol/L; Blood Urea Nitrogen 17 mg/dL (7-17); Calcium 8.1 mg/dL (8.4-10.2); Carbon Dioxide 34 mmol/L (22-30); Chloride 98 mmol/L (98-107); Glucose 92 mg/dL (74-99); Lipase 71 U/L (23-300); Non-African American GFR(CKD) 84 (>60 ml/min/1.73 sqM); Potassium 4.2 mmol/L (3.5-5.1); Sodium 133 mmol/L (137-145); Total Bilirubin 0.5 mg/dL (0.2-1.3); Total Protein 5.3 g/dL (6.3-8.2)
[2022-01-16 20:40] LABS: Partial Thromboplastin Time 25.9 sec (22.0-30.0); Prothrombin Time 10.9 sec (9.0-12.0)
--- NOTE | 2022-01-16 20:41 | CT ---
EXAMINATION TYPE: CT abdomen pelvis w con DATE OF EXAM: 01/16/2022 COMPARISON: 12/29/2021 HISTORY: recent hernia sx, constipation and leg swelling CT DLP: 1188.6 mGycm Automated exposure control for dose reduction was used. CONTRAST: Performed with IV Contrast, patient injected with 100 mL of Isovue 300. There is moderate left pleural effusion. There is some infiltrate and atelectasis left lower lobe. Ri ght lung base is clear. Heart size is normal. No pericardial effusion. There is hiatal hernia with ap parent surgical clips at the gastroesophageal junction. There are clips from cholecystectomy. The jonathan e ducts are not dilated. Liver shows no focal defect. Spleen is intact. There is no pancreatic mass. There is no adrenal mass. Kidneys show satisfactory contrast opacification. There is no hydronephrosi s. There is moderate ascites. There is subcutaneous edema around the abdomen. There is some mild wall thickening of the proximal sigmoid colon. No evidence of a bladder mass. Lumb ar spine is intact. There is multilevel degenerative disc space narrowing. No compression fracture. B kimberly pelvis is intact. The hip joints are intact. IMPRESSION: Moderate sized left pleural effusion with left lower lobe atelectasis. This appears similar to old ex am. There is some improvement in right pleural effusion compared to old exam. Moderate ascites unchanged. Postsurgical changes with skin garret and drainage catheter over the ant erior abdomen. There is reduction of the incarcerated ventral hernia compared to old exam. There is c learing of the dilated bowel. There is some mild wall thickening of the proximal sigmoid colon that c ould be some mild nonspecific colitis. Previous bowel surgery noted. There is subcutaneous edema arou nd the abdomen slightly increased..
[2022-01-16 23:12] VITALS: BP 99/72; PULSE 88; TEMP 97.8
== END 2022-01-16 22:40 | disposition home or self-care (01) ==
LOC: EC 17:11
DX: K29.70 Gastritis, unspecified, without bleeding (principal); Z82.49 Family history of ischemic heart disease and other diseases of the circulatory system; Z87.891 Personal history of nicotine dependence; Z88.8 Allergy status to other drugs, medicaments and biological substances; Z91.041 Radiographic dye allergy status
CPT/HCPCS: 83880; 80053; 83605; 83690; 85025; 85610; 85730; 74177; 99285; 96360; J0878; Q9967; 36415

== ENCOUNTER → 2022-02-02 | Outpatient (CLI) | payer MEDICARE ==
--- NOTE | 2022-02-03 03:03 | MR ---
EXAMINATION TYPE: MR shoulder RT wo con DATE OF EXAM: 02/02/2022 COMPARISON: None HISTORY: Right shoulder pain, evaluate for osteoarthritis. Multiplanar multiecho imaging of the right shoulder without contrast. There is obliteration of the subacromial joint space. There is retraction of the supraspinatus tendon . There is shoulder joint effusion and subdeltoid effusion. AC joint is intact. No significant spurri ng seen at the AC joint. The glenoid den appear intact. Subscapularis tendon is intact. Biceps tendon is intact. There is so me edema in the subcutaneous tissues and also in the deltoid muscle. There is atrophy of the supraspi natus muscle. IMPRESSION: Large rotator cuff tear involving supraspinatus tendon with mild shoulder joint effusion and subdelto id effusion. No fracture seen. Severe subacromial joint space narrowing.
== END | disposition home or self-care (01) ==
LOC: RADMRIMAIN 17:54
PROVIDERS: ATTEND Family Medicine
DX: M19.011 Primary osteoarthritis, right shoulder (principal)

== ENCOUNTER → 2022-02-15 | Outpatient (CLI) | payer MEDICARE ==
[2022-02-15 22:38] LABS: African American GFR (CKD) 76.1 (60.0-200.0); Albumin 3.3 g/dL (3.8-4.9); Albumin/Globulin Ratio 1.22 (1.60-3.17); Anion Gap 10.8 mmol/L (10.00-18.00); BUN/Creat Ratio 11.22 Ratio (12.00-20.00); Blood Urea Nitrogen 10.1 mg/dL (9.0-27.0); Calcium 8.7 mg/dL (8.7-10.3); Carbon Dioxide 32.2 mmol/L (20.0-27.5); Globulin 2.7 g/dL (1.6-3.3); Non-African American GFR(CKD) 65.7 (60.0-200.0); Potassium 3.1 mmol/L (3.5-5.5); Total Bilirubin 0.7 mg/dL (0.30-1.20)
[2022-02-15 22:49] LABS: Basophils # (A) 0.05 X 10*3/uL (0.00-0.10); Basophils % (A) 0.8 %; Eosinophils # (A) 0.11 X 10*3/uL (0.04-0.35); Eosinophils % (A) 1.8 %; HCT 36.8 % (37.2-46.3); HGB 12.1 g/dL (12.0-15.0); Immature Grans, Automated 0.3 %; Lymphocytes % (A) 26.2 %; MCH 30.3 pg (27.0-32.0); MCHC 32.9 g/dL (32.0-37.0); MCV 92.2 fL (80.0-97.0); Mean Platelet Volume 10.6 fL (9.5-12.2); Monocytes # (A) 0.63 X 10*3/uL (0.20-1.00); Monocytes % (A) 10.3 %; NRBC Per 100 WBC 0 /100 WBCS (0.0-0.0); Neutrophils % (A) 60.6 %; Platelet Count 334 X 10*3/uL (140-440); RBC 3.99 X 10*6/uL (4.10-5.20); WBC 6.11 X 10*3/uL (4.50-10.00)
== END | disposition home or self-care (01) ==
LOC: LABWHC1 14:34
PROVIDERS: ATTEND Internal Medicine Gastroenterology
DX: K70.31 Alcoholic cirrhosis of liver with ascites (principal)
CPT/HCPCS: 36415; 80053; 85025

== ENCOUNTER → 2022-02-15 | Outpatient (CLI) | payer MEDICARE ==
--- NOTE | 2022-02-15 18:58 | US ---
EXAMINATION TYPE: US chest DATE OF EXAM: 02/15/2022 COMPARISON: Radiograph same day CLINICAL HISTORY: 66-year-old female J90 PLEURAL EFFUSION, NOT ELSEWHERE CLASSIFIED. TECHNIQUE: Targeted ultrasound of the posterior lower left hemithorax EXAM MEASUREMENTS: Left Pleural Effusion pocket size: 10.5 cm Left skin surface to fluid distance: 2.3 cm Left side marked for possible thoracentesis outside the dept. Pulmonologists are able to review the images in the patient?s EMR. IMPRESSIONS: Moderate to large left pleural effusion with underlying atelectasis.
== END | disposition home or self-care (01) ==
LOC: RADUSWWP 14:08
PROVIDERS: ATTEND Internal Medicine Critical Care Medicine
DX: J90 Pleural effusion, not elsewhere classified (principal)
CPT/HCPCS: 76604

== ENCOUNTER 2022-02-16 11:46 | Day surgery (SDC) | payer OTHER ==
[~2022-02-16 11:46] MED LIST: SODIUM CHLORIDE 0.9% 500 ML 500 ML in EMPTY BAG 1 BAG IV PRN
[2022-02-16 12:25] VITALS: PULSE 80; RESP 18; TEMP 97.9
[2022-02-16 12:38] VITALS: BP 95/87
--- NOTE | 2022-02-16 13:12 | PCN ---
PROCEDURE NOTE PROCEDURE NOTE: PROCEDURE PERFORMED: Left-sided thoracentesis. PREOP DIAGNOSES: Left pleural effusion and shortness of breath, cough. POSTOP DIAGNOSES: Left pleural effusion and shortness of breath, cough. SPORTS ANCHOR: Dr. White. There was informed consent and universal timeout. The patient's procedure took place in [facility] Floor. Indication Pleural effusion. A time-out was completed verifying correct patient, procedure, site, positioning , and implant (s) or special equipment if applicable. Ultrasound guidance was/was not used and appropriate fluid pocket was identified and marked. Patient was positioned, prepped and draped in usual sterile fashion. Lidocaine was used to anesthetize the area. A Thoracentesis catheter was introduced into the pleural space and fluid was removed. Blood loss was none. A chest x-ray was ordered to evaluate for pneumothorax. Total Fluid Removed: 1200 mL. Color of Fluid : Yellow brown fluid. Fluid was sent for appropriate laboratory tests. Patient tolerated the procedure well and there were no complications. The left posterior chest was marked by ultrasound. 1200 mL of yellow brown fluid was removed from the left pleural space. The patient tolerated the procedure well. She did cough after the procedure. The fluid will be sent for analysis. There was no immediate complication. A chest x-ray was ordered to rule out pneumothorax. Again the patient tolerated the procedure well without difficulty. The fluid will be sent for analysis. MMODL / IJN: [id number] /
--- NOTE | 2022-02-16 13:54 | XR ---
EXAMINATION TYPE: XR chest 1V portable DATE OF EXAM: 02/16/2022 COMPARISON: 12/29/2021 HISTORY: Postthoracentesis TECHNIQUE: Single frontal view of the chest is obtained. FINDINGS: Bilateral lower lobe consolidation with small effusion. Limited inspiration. Heart size pr ominent. Postsurgical changes overlying the cervical spine. No overt failure or pneumothorax. Postsur gical change involving the abdomen. IMPRESSION: Bilateral lower lobe infiltrate and small effusion. No sizable pneumothorax postthoracen tesis.
[2022-02-16 23:29] LABS: Appearance,BF Hazy
[2022-02-17 11:51] LABS: Glucose, BF Source Pleural Fluid; Glucose, Body Fluid 100 mg/dL; LDH, Body Fluid Source Pleural Fluid; T. Protein, Body Fluid Source Pleural Fluid; Total Protein, Body Fluid 2740 mg/dL
== END 2022-02-23 10:19 | disposition home or self-care (01) ==
LOC: PROCWHC3 11:46
PROVIDERS: ATTEND Internal Medicine Critical Care Medicine
DX: J90 Pleural effusion, not elsewhere classified (principal); Z79.899 Other long term (current) drug therapy; Z90.710 Acquired absence of both cervix and uterus; Z98.84 Bariatric surgery status; Z90.49 Acquired absence of other specified parts of digestive tract; K76.9 Liver disease, unspecified; K70.31 Alcoholic cirrhosis of liver with ascites; F10.20 Alcohol dependence, uncomplicated; I11.0 Hypertensive heart disease with heart failure; I50.9 Heart failure, unspecified; Z86.16 Personal history of COVID-19; E03.9 Hypothyroidism, unspecified; G25.81 Restless legs syndrome; Z91.041 Radiographic dye allergy status; Z88.8 Allergy status to other drugs, medicaments and biological substances; Z87.891 Personal history of nicotine dependence
CPT/HCPCS: 32554; 71045; 82945; 83615; 84157; 87070; 87075; 87116; 87205; 87206; 88108; 88305; 89050

== ENCOUNTER → 2022-04-25 | Outpatient (CLI) | payer MEDICARE ==
[2022-04-25 19:38] LABS: Basophils # (A) 0.04 X 10*3/uL (0.00-0.10); Basophils % (A) 0.7 %; Eosinophils # (A) 0.16 X 10*3/uL (0.04-0.35); Eosinophils % (A) 2.8 %; HCT 34.1 % (37.2-46.3); Immature Grans, Automated 0.4 %; Lymphocytes # (A) 1.11 X 10*3/uL (0.90-5.00); Lymphocytes % (A) 19.5 %; MCH 29.5 pg (27.0-32.0); MCHC 32.3 g/dL (32.0-37.0); MCV 91.4 fL (80.0-97.0); Mean Platelet Volume 11.2 fL (9.5-12.2); Monocytes # (A) 0.69 X 10*3/uL (0.20-1.00); Monocytes % (A) 12.1 %; NRBC Per 100 WBC 0 /100 WBCS (0.0-0.0); Neutrophils # (A) 3.68 X 10*3/uL (1.80-7.70); Neutrophils % (A) 64.5 %; Platelet Count 252 X 10*3/uL (140-440); RBC 3.73 X 10*6/uL (4.10-5.20); RDW 14.7 % (11.5-14.5)
[2022-04-25 20:11] LABS: African American GFR (CKD) 108.5 (60.0-200.0); Albumin 3.2 g/dL (3.8-4.9); Albumin/Globulin Ratio 1.45 (1.60-3.17); Anion Gap 7.8 mmol/L (10.00-18.00); BUN/Creat Ratio 22.83 Ratio (12.00-20.00); Blood Urea Nitrogen 13.7 mg/dL (9.0-27.0); Calcium 8.8 mg/dL (8.7-10.3); Carbon Dioxide 25.2 mmol/L (20.0-27.5); Globulin 2.2 g/dL (1.6-3.3); Non-African American GFR(CKD) 93.7 (60.0-200.0); Potassium 4.2 mmol/L (3.5-5.5); Total Bilirubin 0.6 mg/dL (0.30-1.20); Total Protein 5.4 g/dL (6.2-8.2)
== END | disposition home or self-care (01) ==
LOC: LABWHC1 11:13
PROVIDERS: ATTEND Internal Medicine Gastroenterology
DX: K70.31 Alcoholic cirrhosis of liver with ascites (principal)
CPT/HCPCS: 36415; 80053; 85025

== ENCOUNTER → 2022-07-16 | Outpatient (CLI) | payer MEDICARE ==
[2022-07-17 09:18] LABS: Basophils % (A) 1 %; Eosinophils # (A) 0.2 k/uL (0-0.7); Eosinophils % (A) 3 %; HCT 34.6 % (34.0-46.0); HGB 10.6 gm/dL (11.4-16.0); Hypochromasia Marked; Lymphocytes # (A) 1.2 k/uL (1.0-4.8); Lymphocytes % (A) 24 %; MCH 26.1 pg (25.0-35.0); MCHC 30.7 g/dL (31.0-37.0); MCV 84.8 fL (80.0-100.0); Monocytes # (A) 0.4 k/uL (0-1.0); Monocytes % (A) 8 %; Neutrophils % (A) 61 %; Platelet Count 239 k/uL (150-450); RBC 4.08 m/uL (3.80-5.40); RDW 14.1 % (11.5-15.5); WBC 4.9 k/uL (3.8-10.6)
[2022-07-17 11:46] LABS: African American GFR (CKD) 103.2 (60.0-200.0); Albumin 3.7 g/dL (3.8-4.9); Albumin/Globulin Ratio 1.68 (1.60-3.17); Anion Gap 9.6 mmol/L (10.00-18.00); BUN/Creat Ratio 21.71 Ratio (12.00-20.00); Blood Urea Nitrogen 15.2 mg/dL (9.0-27.0); Calcium 9.1 mg/dL (8.7-10.3); Carbon Dioxide 27.4 mmol/L (20.0-27.5); Globulin 2.2 g/dL (1.6-3.3); Potassium 4.4 mmol/L (3.5-5.5); Total Bilirubin 0.5 mg/dL (0.30-1.20); Total Protein 5.9 g/dL (6.2-8.2)
== END | disposition home or self-care (01) ==
LOC: LABWHC1 11:00
PROVIDERS: ATTEND Internal Medicine Gastroenterology
DX: K70.31 Alcoholic cirrhosis of liver with ascites (principal)
CPT/HCPCS: 36415; 80053; 85025

== ENCOUNTER → 2022-07-28 | Outpatient (CLI) | payer MEDICARE ==
--- NOTE | 2022-07-28 16:25 | US ---
EXAMINATION TYPE: US abdomen complete DATE OF EXAM: 07/28/2022 COMPARISON: CT 01/16/2022 CLINICAL HISTORY: 58-year-old female K70.31 OTH SYMPTOMS AND SIGNS INVOLVING THE CIRC A. TECHNIQUE: Multiple sonographic images of the abdomen are obtained. FINDINGS: EXAM MEASUREMENTS: Liver Length: 13.1 cm CBD: 0.8 cm Spleen: 12.5 cm Right Kidney: 9.2 x 4.2 x 4.2 cm Left Kidney: 9.3 x 4.4 x 4.3 cm Pancreas: obscured by overlying midline bowel gas Liver: Coarsened echotexture. Slightly echogenic. No focal lesion seen. Gallbladder: surgically absent Evidence for sonographic Terrazas's sign: no CBD: May be within normal limits for post cholecystectomy patient Spleen: wnl Right Kidney: Lower pole obscured by bowel gas shadowing. No hydronephrosis. Left Kidney: wnl Upper IVC: wnl Abd Aorta: proximal and mid portions obscured by overlying midline bowel, distal portion wnl Left pleural effusion seen Mild abdominal ascites seen IMPRESSION: 1. Coarsened hepatic echotexture may be technical. Correlate for nonspecific hepatocellular disease. 2. Bile duct dilated at 8 mm, acceptable given postcholecystectomy status. Correlate with alkaline ph osphatase and bilirubin levels. 3. Mild abdominal ascites and underlying left pleural effusion. 4. Lower gastroesophageal varices noted on the patient's 01/16/2022 CT. Given the ascites fluid, query the possibility of underlying liver disease and portal venous hypertension.
[2022-07-28 18:12] LABS: Basophils # (A) 0.02 X 10*3/uL (0.00-0.10); Basophils % (A) 0.4 %; Eosinophils # (A) 0.13 X 10*3/uL (0.04-0.35); Eosinophils % (A) 2.9 %; HCT 33.8 % (37.2-46.3); HGB 10.2 g/dL (12.0-15.0); Immature Grans, Automated 0.2 %; Lymphocytes # (A) 1.18 X 10*3/uL (0.90-5.00); MCH 25.1 pg (27.0-32.0); MCHC 30.2 g/dL (32.0-37.0); Mean Platelet Volume 10.9 fL (9.5-12.2); Monocytes # (A) 0.51 X 10*3/uL (0.20-1.00); Monocytes % (A) 11.2 %; NRBC Per 100 WBC 0 /100 WBCS (0.0-0.0); Neutrophils # (A) 2.69 X 10*3/uL (1.80-7.70); Neutrophils % (A) 59.3 %; Platelet Count 228 X 10*3/uL (140-440); RBC 4.07 X 10*6/uL (4.10-5.20); RDW 15.2 % (11.5-14.5); WBC 4.54 X 10*3/uL (4.50-10.00)
[2022-07-28 18:18] LABS: African American GFR (CKD) 103.2 (60.0-200.0); Albumin 3.8 g/dL (3.8-4.9); Albumin/Globulin Ratio 1.52 (1.60-3.17); Anion Gap 10.5 mmol/L (10.00-18.00); BUN/Creat Ratio 22.29 Ratio (12.00-20.00); Blood Urea Nitrogen 15.6 mg/dL (9.0-27.0); Calcium 9.2 mg/dL (8.7-10.3); Carbon Dioxide 26.5 mmol/L (20.0-27.5); Globulin 2.5 g/dL (1.6-3.3); Potassium 3.6 mmol/L (3.5-5.5); Total Bilirubin 0.5 mg/dL (0.30-1.20); Total Protein 6.3 g/dL (6.2-8.2)
[2022-07-28 19:18] LABS: INR 0.94 (0.90-1.11); Prothrombin Time 10.6 sec (9.9-11.9)
== END | disposition home or self-care (01) ==
LOC: RADUSWWP 12:11
PROVIDERS: ATTEND Internal Medicine Gastroenterology
DX: K83.8 Other specified diseases of biliary tract (principal); J90 Pleural effusion, not elsewhere classified; I86.4 Gastric varices; R18.8 Other ascites
CPT/HCPCS: 36415; 76700; 80053; 82105; 85025; 85610

== ENCOUNTER 2022-08-08 07:45 | Inpatient (IN) | payer MEDICARE ==
[~2022-08-08 07:45] MED LIST changes: +ACETAMINOPHEN TAB 500 MG TAB PO PRN; +HEPARIN SODIUM,PORCINE/PF 5,000 UNIT/0.5 ML SYRINGE SQ PRN; -SODIUM CHLORIDE 0.9% 500 ML 500 ML in EMPTY BAG 1 BAG IV PRN
[2022-08-08] MEDS ORDERED: DEXAMETHASONE SOD PHOSPHATE 4 MG/ML 1 ML VIAL IV ONE (08:14)
[2022-08-08] MEDS ORDERED: LIDOCAINE 1% (10MG/ML) FOR IV START INTRADERMA PRN (08:14)
[2022-08-08] MEDS ORDERED: ONDANSETRON 4 MG/2 ML VIAL IVP ONE (08:14)
[2022-08-08] MEDS ORDERED: ONDANSETRON 4 MG/2 ML VIAL IVP PRN ×2 (08:14→11:58)
[2022-08-08] MEDS ORDERED: LACTATED RINGERS 1,000 ML IV SCH (08:14)
[2022-08-08 09:23] LABS: ALT 23 U/L (4-34); AST 42 U/L (14-36); African American GFR (CKD) >90 (>60 ml/min/1.73 sqM); Albumin 3.7 g/dL (3.5-5.0); Alkaline Phosphatase 121 U/L (38-126); Anion Gap 5 mmol/L; Blood Urea Nitrogen 19 mg/dL (7-17); Calcium 8.8 mg/dL (8.4-10.2); Carbon Dioxide 28 mmol/L (22-30); Chloride 104 mmol/L (98-107); Glucose 98 mg/dL (74-99); Non-African American GFR(CKD) >90 (>60 ml/min/1.73 sqM); Potassium 4.1 mmol/L (3.5-5.1); Sodium 137 mmol/L (137-145); Total Bilirubin 0.7 mg/dL (0.2-1.3)
[2022-08-08] MEDS ORDERED: MIDAZOLAM 2 MG/2 ML VIAL IVP ONE (09:39)
[2022-08-08] MEDS ORDERED: fentaNYL (PF) 50 MCG/1 ML VIAL IVP ONE (09:40)
--- NOTE | 2022-08-08 09:52 | P.GSHP ---
History of Present Illness H&P Date: 08/08/22 Chief Complaint: Incarcerated left inguinal hernia Is a 58-year-old female who's developed an incarcerated left inguinal hernia. Patient has a history of alcohol cirrhosis with ascites. Patient's ascites has been medically managed. Patient is aware of risk of leaking ascites through the hernia incision. 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 had paracentisis on 08/02/22 History of Any Multi-Drug Resistant Organisms: None Reported Date of last positivie culture/infection: 01/06/22 MDRO Source:: Abd incision Past Surgical History: Bariatric Surgery, Cholecystectomy, Hernia Repair, Hysterectomy, Orthopedic Surgery, Tubal Ligation Additional Past Surgical History / Comment(s): HX GASTRIC BYPASS, PAIN CLINIC PROCEDURE, c3-7 fusions, colonoscopy. bowel obtruction in 12/2021 surgery recetion of bowel Past Anesthesia/Blood Transfusion Reactions: No Reported Reaction Additional Past Anesthesia/Blood Transfusion Reaction / Comment(s): REQUIRE ABOVE AVERAGE LIDOCAINE DOSE. Smoking Status: Former smoker - Past Family History Father Family Medical History: Diabetes Mellitus, Myocardial Infarction ([place]) Additional Family Medical History / Comment(s): Father is . Mother Family Medical History: Cancer, Myocardial Infarction ([place]) Additional Family Medical History / Comment(s): Breast cancer. Mother is living. Medications and Allergies Home Medications Medication Instructions Recorded Confirmed Type Multivitamin [Multivitamins Adult 1 tab PO DAILY 03/15/21 08/08/22 History Gummies] Vitamin B Complex 1 cap PO DAILY@1700 06/19/21 08/08/22 History rOPINIRole HCL [Requip] 0.5 mg PO HS PRN 06/19/21 08/08/22 History Pantoprazole [Protonix] 40 mg PO AC-BRKFST tab 06/24/21 08/08/22 Rx Folic Acid 0.4 mg PO BID@0900,1700 12/29/21 08/08/22 History Levothyroxine Sodium [Synthroid] 50 mcg PO AC-BRKFST 12/29/21 08/08/22 History Magnesium Oxide [Mag-Ox] 250 mg PO BID@0900,1700 12/29/21 08/08/22 History Midodrine [ProAmatine] 5 mg PO AC-TID@07,11,1630 12/29/21 08/08/22 History Potassium Chloride ER [K-Dur 20] 10 meq PO TID 12/29/21 08/08/22 History Sennosides [Senna] 8.6 mg PO BID 12/29/21 08/08/22 History Furosemide [Lasix] 40 mg PO 0900,1600 #0 01/14/22 08/08/22 Rx oxyCODONE HCL [Oxycodone HCl] 5 mg PO BID PRN 08/03/22 08/08/22 History Spironolactone [Aldactone] 100 mg PO DAILY 08/08/22 08/08/22 History traMADol HCL 1 tab PO BID PRN 08/08/22 08/08/22 History Allergies Allergy/AdvReac Type Severity Reaction Status Date / Time furosemide [From Lasix] AdvReac Causes BP Verified 08/03/22 10:57 to drop too quickly, still takes at home Gadolinium-Containing AdvReac Flushing Verified 08/08/22 08:19 Contrast Medi Surgical - Exam Vital Signs Temp Pulse Resp BP Pulse Ox 97.4 F L 78 16 99/65 97 08/08/22 08:15 08/08/22 08:15 08/08/22 08:15 08/08/22 08:15 08/08/22 08:15 - General well developed, well nourished, no distress - Eyes PERRL - ENT normal pinna, normal nares - Neck no masses - Respiratory normal expansion - Cardiovascular Rhythm: regular - Abdomen Abdomen: soft, non tender Hernia: inguinal (Large incarcerated left we will hernia) Results - Labs 08/08/22 08:53 Abnormal Lab Results - Last 24 Hours (Table) 08/08/22 Range/Units 08:53 BUN 19 H (7-17) mg/dL AST 42 H (14-36) U/L Total Protein 6.0 L (6.3-8.2) g/dL Diabetes panel 08/08/22 Range/Units 08:53 Sodium 137 (137-145) mmol/L Potassium 4.1 (3.5-5.1) mmol/L Chloride 104 (98-107) mmol/L Carbon Dioxide 28 (22-30) mmol/L BUN 19 H (7-17) mg/dL Creatinine 0.64 (0.52-1.04) mg/dL Glucose 98 (74-99) mg/dL Calcium 8.8 (8.4-10.2) mg/dL AST 42 H (14-36) U/L ALT 23 (4-34) U/L Alkaline Phosphatase 121 (38-126) U/L Total Protein 6.0 L (6.3-8.2) g/dL Albumin 3.7 (3.5-5.0) g/dL Calcium panel 08/08/22 Range/Units 08:53 Calcium 8.8 (8.4-10.2) mg/dL Albumin 3.7 (3.5-5.0) g/dL Pituitary panel 08/08/22 Range/Units 08:53 Sodium 137 (137-145) mmol/L Potassium 4.1 (3.5-5.1) mmol/L Chloride 104 (98-107) mmol/L Carbon Dioxide 28 (22-30) mmol/L BUN 19 H (7-17) mg/dL Creatinine 0.64 (0.52-1.04) mg/dL Glucose 98 (74-99) mg/dL Calcium 8.8 (8.4-10.2) mg/dL Adrenal panel 08/08/22 Range/Units 08:53 Sodium 137 (137-145) mmol/L Potassium 4.1 (3.5-5.1) mmol/L Chloride 104 (98-107) mmol/L Carbon Dioxide 28 (22-30) mmol/L BUN 19 H (7-17) mg/dL Creatinine 0.64 (0.52-1.04) mg/dL Glucose 98 (74-99) mg/dL Calcium 8.8 (8.4-10.2) mg/dL Total Bilirubin 0.7 (0.2-1.3) mg/dL AST 42 H (14-36) U/L ALT 23 (4-34) U/L Alkaline Phosphatase 121 (38-126) U/L Total Protein 6.0 L (6.3-8.2) g/dL Albumin 3.7 (3.5-5.0) g/dL Assessment and Plan Assessment: Left incarcerated we'll hernia. We'll perform open repair.
[2022-08-08] MEDS ORDERED: fentaNYL (PF) 50 MCG/ML 2 ML AMP ONE (10:01)
[2022-08-08] MEDS ORDERED: LIDOCAINE 2% INJ 20 MG/ML (2 ML VIAL) ONE (10:01)
[2022-08-08] MEDS ORDERED: GLYCOPYRROLATE 0.2 MG/ML 2 ML VIAL ONE (10:01)
[2022-08-08] MEDS ORDERED: ROPIVACAINE 5 MG/ML 30 ML VIAL ONE (10:01)
[2022-08-08] MEDS ORDERED: NEOSTIGMINE 1 MG/ML 10 ML VIAL ONE (10:01)
[2022-08-08] MEDS ORDERED: PROPOFOL 10 MG/ML 20 ML VIAL IV ONE (10:01)
[2022-08-08] MEDS ORDERED: ROCURONIUM 10 MG/ML (5 ML VIAL) IV ONE (10:01)
[2022-08-08] MEDS ORDERED: SUCCINYLCHOLINE CHLORIDE 200 MG/10 ML VIAL IV ONE (10:01)
--- NOTE | 2022-08-08 10:03 | P.ANPRN ---
Procedure Note - Anesthesia - Nerve Block Performed Left Erector Spinae Single Time Out Performed: Yes ([id number]) Date of Procedure: 08/08/22 Procedure Start Time: 09:39 Procedure Stop Time: 09:43 Location of Patient: PreOp Indication: Acute Post-Operative Pain, Requested by Surgeon Specifically requested for management of pain by DrTon: Pankaj Haro Sedation Type: Sedate with meaningful contact maintained Preparation: Sterile Prep Position: Sitting Catheter: None Needle Types: Pajunk Needle Gauge: 21 Ultrasound used to visualize needle placement: Yes Ultrasound used to observe medication spread: Yes Injectate: 0.5% Ropivacaine (see comment for volume) (30cc) Blood Aspirated: No Pain Paresthesia on Injection Noted: No Resistance on Injection: Normal Image Stored and Saved: Yes Events: Uneventful and Well Tolerated
[2022-08-08] MEDS ORDERED: BUPIVACAINE (PF) 0.25% 30 ML VIAL SQ ONE (10:27)
--- NOTE | 2022-08-08 10:58 | P.OP ---
Date of Procedure: 08/08/22 Preoperative Diagnosis: Incarcerated left inguinal hernia Postoperative Diagnosis: Incarcerated left inguinal hernia Procedure(s) Performed: Repair of incarcerated left inguinal hernia with mesh Anesthesia: ALIS Surgeon: Pankaj Haro Estimated Blood Loss (ml): 5 Pathology: none sent Condition: stable Disposition: PACU Description of Procedure: The patient's placed on the operative table in the supine position. She received general endotracheal tube anesthesia. Her left arm was prepped and draped in sterile fashion. Standard hernia incision was made over the left internal ring. The subcutaneous tissue divided. The hernia sac contained ascites. The hernia sac was dissected free from the subcutaneous tissue. The hernia sac was then inverted back into the peritoneal cavity. Next the Prolene hernial mesh plug was placed into the inguinal canal the superior leaf was then expanded and then attached to the pubic tubercle below. And then attached ultrasound fashion in several spots. Subjective then closed with 2-0 Vicryl suture. Skin was closed with interrupted 3-0 Monocryl suture. Dermabond was applied. Patient tolerated the procedure well will was sent to recovery in stable condition.
[2022-08-08] MEDS: HYDROmorphone 0.5 MG/0.5 ML SYRINGE IVP PRN ×2 (11:10→11:30)
[2022-08-08] MEDS ORDERED: NALOXONE 0.4 MG/ML 1 ML VIAL IV PRN (11:58)
[2022-08-08] MEDS ORDERED: LACTATED RINGERS 1,000 ML IV ONE (11:58)
[2022-08-08] MEDS ORDERED: diphenhydrAMINE 50 MG/ML 1 ML VIAL IVP ONE (12:20)
[2022-08-08] MEDS: POTASSIUM CHLORIDE ER 10 MEQ TAB.ER.PRT PO SCH (20:31)
[2022-08-08] MEDS: traMADol 50 MG TAB PO PRN (23:35)
[2022-08-09] MEDS: HYDROcodone/APAP 5-325MG 1 EACH TAB PO PRN ×2 (01:46→20:04)
[2022-08-09] MEDS: traMADol 50 MG TAB PO PRN (06:57)
[2022-08-09] MEDS: LEVOTHYROXINE 50 MCG TAB PO SCH (06:57)
[2022-08-09] MEDS: MIDODRINE 5 MG TAB PO SCH ×3 (06:57→16:01)
[2022-08-09] MEDS: PANTOPRAZOLE 40 MG TABLET PO SCH (06:57)
[2022-08-09] MEDS: HYDROmorphone 0.5 MG/0.5 ML SYRINGE IVP PRN (10:01)
[2022-08-09] MEDS: FOLIC ACID 1 MG TAB PO SCH ×2 (10:02→16:01)
[2022-08-09] MEDS: POTASSIUM CHLORIDE ER 10 MEQ TAB.ER.PRT PO SCH ×3 (10:02→21:59)
[2022-08-09] MEDS: SPIRONOLACTONE 25 MG TAB PO SCH (10:03)
[2022-08-09] MEDS: MAGNESIUM OXIDE 400 MG TAB PO SCH ×2 (10:03→16:01)
[2022-08-09] MEDS: MULTIVITAMINS, THERA 1 EACH TAB PO SCH (10:03)
[2022-08-09] MEDS: FUROSEMIDE 40 MG TAB PO SCH ×2 (10:03→16:01)
[2022-08-09] MEDS: ENOXAPARIN 40 MG/0.4 ML SYRINGE SQ SCH (10:03)
--- NOTE | 2022-08-09 13:42 | P.PN ---
Subjective Progress Note Date: 08/09/22 CHIEF COMPLAINT: Incarcerated left inguinal hernia HISTORY OF PRESENT ILLNESS: Patient is postop day #1 status post repair of incarcerated left will hernia with mesh. Patient is complaining of abdominal p ain. She reports her pain 9 out of 10. She did not receive any IV pain medication during the night. When patient was seen this morning IV pain medication restarted. She is having flatus. She reports difficulty with urinating. Medicine service has ordered a bladder scan. She is currently on a regular diet. Afebrile. Sodium is 137 potassium 4.1 creatinine 0.64 PHYSICAL EXAM: VITAL SIGNS: Reviewed. GENERAL: Well-developed in no acute distress. HEENT: No sclera icterus. Extraocular movements grossly intact. Moist buccal mucosa. Head is atraumatic, normocephalic. ABDOMEN: Soft. Nondistended. Nontender. NEUROLOGIC: Alert and oriented. Cranial nerves II through XII grossly intact. ASSESSMENT: 1. Incarcerated left inguinal hernia status post repair with mesh PLAN: -Continue pain management -Monitor for urinary retention -Consult PT OT -Encourage patient to ambulate -Continue diuretics due to her history of liver cirrhosis and prior paracentesis -IV Fluids discontinued -Continue regular diet -Incentive spirometer ordered -DVT prophylaxis Lovenox Physician Vinyl Flooring Installer note has been reviewed by physician. Signing provider agrees with the documented findings, assessment, and plan of care. Objective - Vital Signs Vital signs: Vital Signs Temp 99.3 F 08/09/22 07:50 Pulse 84 08/09/22 07:50 Resp 16 08/09/22 07:50 BP 108/66 08/09/22 07:50 Pulse Ox 93 L 08/09/22 07:50 FiO2 Intake & Output 08/08/22 08/09/22 08/09/22 18:59 06:59 18:59 Intake Total 1350 Output Total 805 250 Balance 545 -250 Weight 67.5 kg Intake: IV 1350 Output: Urine 800 Post Void Residual 250 Estimated Blood Loss 5 Other: # Voids 2 - Labs CBC & Chem 7: 08/08/22 08:53
--- NOTE | 2022-08-09 15:04 | P.CONS ---
History of Present Illness - Reason for Consult Consult date: 08/09/22 Medical management gastroesophageal reflux disease Requesting physician: Pankaj Haro - Chief Complaint Status post incarcerated left inguinal hernia repair - History of Present Illness This is 66-year-old female with past medical history of alcoholic cirrhosis, ascites, gastroesophageal reflux disease, hypothyroidism, incarcerated umbilical hernia repair, status post incarcerated left inguinal hernia repair, postop day #1. Reports significant pain. Reports minimal urine output since last night. Renal function stable. T-max 99.3. Maintaining O2 sats in the 90s on room air. Review of Systems Constitutional: Denied any chills or sweats Cardio vascular: denied any chest pain, palpitations Gastrointestinal denied any nausea vomiting Pulmonary: Denied any shortness of breath cough Neurologic denied any new focal deficits ROS Statement: Those systems with pertinent positive or pertinent negative responses have been documented in the HPI. ROS Other: All systems not noted in ROS Statement are negative. 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 had paracentisis on 08/02/22 History of Any Multi-Drug Resistant Organisms: None Reported Year Discovered:: 01/06/22 MDRO Source:: Abd incision Past Surgical History: Bariatric Surgery, Cholecystectomy, Hernia Repair, Hysterectomy, Orthopedic Surgery, Tubal Ligation Additional Past Surgical History / Comment(s): HX GASTRIC BYPASS, PAIN CLINIC PROCEDURE, c3-7 fusions, colonoscopy. bowel obtruction in 12/2021 surgery recetion of bowel Past Anesthesia/Blood Transfusion Reactions: No Reported Reaction Additional Past Anesthesia/Blood Transfusion Reaction / Comm: REQUIRE ABOVE AVERAGE LIDOCAINE DOSE. Past Psychological History: No Psychological Hx Reported Additional Psychological History / Comment(s): Pt resides alone. She uses a walker to ambulate. She limits her driving. She has a fast brim pouncer every 2 weeks. Her christi in law is helpful but works alot of hours. Smoking Status: Former smoker Past Alcohol Use History: None Reported Additional Past Alcohol Use History / Comment(s): Pt started smoking in 1965 and quit in 1980. Pt used to drink red wine heavily but has not had anything to drink since 03/14/21. Past Drug Use History: None Reported - Past Family History Father Family Medical History: Diabetes Mellitus, Myocardial Infarction ([place]) Additional Family Medical History / Comment(s): Father is . Mother Family Medical History: Cancer, Myocardial Infarction ([place]) Additional Family Medical History / Comment(s): Breast cancer. Mother is living. Medications and Allergies Home Medications Medication Instructions Recorded Confirmed Type Multivitamin [Multivitamins Adult 1 tab PO DAILY 03/15/21 08/08/22 History Gummies] Vitamin B Complex 1 cap PO DAILY@1700 06/19/21 08/08/22 History rOPINIRole HCL [Requip] 0.5 mg PO HS PRN 06/19/21 08/08/22 History Pantoprazole [Protonix] 40 mg PO AC-BRKFST tab 06/24/21 08/08/22 Rx Folic Acid 0.4 mg PO BID@0900,1700 12/29/21 08/08/22 History Levothyroxine Sodium [Synthroid] 50 mcg PO AC-BRKFST 12/29/21 08/08/22 History Magnesium Oxide [Mag-Ox] 250 mg PO BID@0900,1700 12/29/21 08/08/22 History Midodrine [ProAmatine] 5 mg PO AC-TID@07,11,1630 12/29/21 08/08/22 History Potassium Chloride ER [K-Dur 20] 10 meq PO TID 12/29/21 08/08/22 History Sennosides [Senna] 8.6 mg PO BID 12/29/21 08/08/22 History Furosemide [Lasix] 40 mg PO 0900,1600 #0 01/14/22 08/08/22 Rx oxyCODONE HCL [Oxycodone HCl] 5 mg PO BID PRN 08/03/22 08/08/22 History Acetaminophen Tab [Tylenol] 650 mg PO Q6H #30 tab 08/08/22 Rx Docusate [Colace] 100 mg PO BID #20 capsule 08/08/22 Rx Ibuprofen [Motrin] 600 mg PO Q6HR PRN #40 tab 08/08/22 Rx Spironolactone [Aldactone] 100 mg PO DAILY 08/08/22 08/08/22 History oxyCODONE HCL [OxyIR] 5 mg PO Q6H PRN 3 Days #10 tab 08/08/22 Rx traMADol HCL 1 tab PO BID PRN 08/08/22 08/08/22 History Allergies Allergy/AdvReac Type Severity Reaction Status Date / Time furosemide [From Lasix] AdvReac Causes BP Verified 08/03/22 10:57 to drop too quickly, still takes at home Gadolinium-Containing AdvReac Flushing Verified 08/08/22 08:19 Contrast Medi Physical Exam Vitals: Vital Signs Temp Pulse Resp BP Pulse Ox 08/09/22 07:50 99.3 F 84 16 108/66 93 L 08/09/22 02:00 98.9 F 93 16 108/70 93 L 08/08/22 20:00 98.9 F 82 15 110/66 99 08/08/22 15:27 74 138/80 98 08/08/22 14:57 74 113/72 97 08/08/22 14:27 77 129/85 99 08/08/22 14:12 76 122/82 97 08/08/22 14:00 98.4 F 84 16 144/86 99 08/08/22 13:57 76 127/80 100 08/08/22 13:42 76 126/81 100 08/08/22 13:27 78 144/83 99 08/08/22 12:43 76 16 122/78 94 L 08/08/22 12:15 88 16 120/76 99 08/08/22 11:30 78 16 109/74 94 L 08/08/22 11:15 77 16 122/74 99 08/08/22 11:00 76 16 117/62 99 08/08/22 10:51 96.8 F L 83 16 119/95 99 08/08/22 09:45 73 16 91/60 97 Intake and Output 08/08/22 08/09/22 08/09/22 22:59 06:59 14:59 Other: # Voids 2 Weight 67.5 kg - Exam Gen: sitting up in bed, no acute distress HEENT: normocephalic, atraumatic,MMM Neck: supple, no JVD CV: RRR, no murmur Lungs: Normal effort,clear thoughout Abd; soft, nondistended, status post surgery Neuro: alert and oriented x3, no focal deficits Skin: warm and dry Results CBC & Chem 7: 08/08/22 08:53 Labs: Abnormal Lab Results - Last 24 Hours (Table) 08/08/22 Range/Units 08:53 BUN 19 H (7-17) mg/dL AST 42 H (14-36) U/L Total Protein 6.0 L (6.3-8.2) g/dL Assessment and Plan Assessment: Incarcerated left inguinal hernia repair, management per surgery. Possible postoperative Urinary retention, expected outcome History of Incarcerated umbilical hernia repair with enterococcus VRE wound cultures,12/31 History of Alcoholic cirrhosis, ascites, paracentesis. History of Hepatorenal syndrome Plan: Continue on current medication regime ,monitoring and symptomatic treatment. Postvoid bladder scan ordered. Pain management with IV push Dilaudid resumed. Aggressive pulmonary toileting with incentive spirometer ordered. PPI for GI prophylaxis ordered. DVT prophylaxis in place with Lovenox. Thank you for the consult. The impression and plan of care has been dictated as directed. : I performed a history and examination of this patient, discussed the same with the dictator. I agree with the dictator's note ,documented as a scribe. Any additional findings or plans will be noted.
[2022-08-10] MEDS: HYDROcodone/APAP 5-325MG 1 EACH TAB PO PRN ×4 (02:30→23:03)
[2022-08-10] MEDS: HYDROmorphone 0.5 MG/0.5 ML SYRINGE IVP PRN (05:31)
[2022-08-10] MEDS: LEVOTHYROXINE 50 MCG TAB PO SCH (05:46)
[2022-08-10] MEDS: PANTOPRAZOLE 40 MG TABLET PO SCH (05:46)
[2022-08-10] MEDS: MIDODRINE 5 MG TAB PO SCH ×3 (05:46→16:23)
[2022-08-10 08:48] LABS: Basophils % (A) 1 %; Eosinophils % (A) 1 %; HCT 32.4 % (34.0-46.0); HGB 10.1 gm/dL (11.4-16.0); Hypochromasia Marked; Lymphocytes # (A) 1.2 k/uL (1.0-4.8); Lymphocytes % (A) 22 %; MCH 25.9 pg (25.0-35.0); MCHC 31.2 g/dL (31.0-37.0); MCV 83.2 fL (80.0-100.0); Mean Platelet Volume 10.5; Monocytes # (A) 0.5 k/uL (0-1.0); Monocytes % (A) 9 %; Neutrophils # (A) 3.4 k/uL (1.3-7.7); Neutrophils % (A) 65 %; Platelet Count 180 k/uL (150-450); RDW 14.9 % (11.5-15.5); WBC 5.3 k/uL (3.8-10.6)
[2022-08-10] MEDS: ENOXAPARIN 40 MG/0.4 ML SYRINGE SQ SCH (08:54)
[2022-08-10] MEDS: POTASSIUM CHLORIDE ER 10 MEQ TAB.ER.PRT PO SCH ×3 (08:54→20:40)
[2022-08-10] MEDS: FOLIC ACID 1 MG TAB PO SCH ×2 (08:54→16:23)
[2022-08-10] MEDS: FUROSEMIDE 40 MG TAB PO SCH ×2 (08:54→16:22)
[2022-08-10] MEDS: MULTIVITAMINS, THERA 1 EACH TAB PO SCH (08:55)
[2022-08-10] MEDS: MAGNESIUM OXIDE 400 MG TAB PO SCH ×2 (08:55→16:22)
[2022-08-10] MEDS: SPIRONOLACTONE 25 MG TAB PO SCH (08:57)
[2022-08-10 09:12] LABS: African American GFR (CKD) >90 (>60 ml/min/1.73 sqM); Anion Gap 5 mmol/L; Blood Urea Nitrogen 18 mg/dL (7-17); Calcium 7.8 mg/dL (8.4-10.2); Carbon Dioxide 30 mmol/L (22-30); Chloride 96 mmol/L (98-107); Glucose 182 mg/dL (74-99); Non-African American GFR(CKD) 79 (>60 ml/min/1.73 sqM); Potassium 3.8 mmol/L (3.5-5.1); Sodium 131 mmol/L (137-145)
[2022-08-10] MEDS: TAMSULOSIN 0.4 MG CAP.ER.24H PO SCH (11:10)
--- NOTE | 2022-08-10 12:34 | P.PN ---
Subjective Progress Note Date: 08/10/22 - History of Present Illness This is 66-year-old female with past medical history of alcoholic cirrhosis, ascites, gastroesophageal reflux disease, hypothyroidism, incarcerated umbilical hernia repair, status post incarcerated left inguinal hernia repair, postop day #1. Reports significant pain. Reports minimal urine output since last night. Renal function stable. T-max 99.3. Maintaining O2 sats in the 90s on room air. 08/10/2022 yesterday voiding 5-600, and continued to have high postvoid bladder scans of similar amounts, Rubin catheter inserted. Maintained on Aldactone and Lasix. Slept better. Consumed 25% of breakfast .Denies nausea vomiting or diarrhea. Reports cramping abdominal sensation and incisional pain with movement. Passing flatus, no bowel movement postop. T-max 100.7. Blood pressures soft. Sodium decreased to 131. Objective - Vital Signs Vital signs: Vital Signs Temp 98.5 F 08/10/22 08:00 Pulse 78 08/10/22 08:00 Resp 19 08/10/22 08:00 BP 98/64 08/10/22 08:00 Pulse Ox 94 L 08/10/22 08:00 FiO2 Intake & Output 08/09/22 08/10/22 08/10/22 18:59 06:59 18:59 Output Total 3050 1200 Balance -3050 -1200 Output: Urine 2400 1200 Post Void Residual 650 Other: Voiding Method Indwelling Catheter - Exam - Exam Gen: sitting up in chair, no acute distress HEENT: normocephalic, atraumatic,MMM Neck: supple, no JVD CV: RRR, no murmur Lungs: Normal effort,clear thoughout Abd; soft, nondistended, status post surgery Neuro: alert and oriented x3, no focal deficits Skin: warm and dry - Labs CBC & Chem 7: 08/10/22 08:24 08/10/22 08:24 Labs: Abnormal Lab Results - Last 24 Hours (Table) 08/10/22 08/10/22 Range/Units 08:24 08:24 Hgb 10.1 L (11.4-16.0) gm/dL Hct 32.4 L (34.0-46.0) % Sodium 131 L (137-145) mmol/L Chloride 96 L (98-107) mmol/L BUN 18 H (7-17) mg/dL Glucose 182 H (74-99) mg/dL Calcium 7.8 L (8.4-10.2) mg/dL Assessment and Plan Assessment: Incarcerated left inguinal hernia repair, management per surgery. Possible postoperative Urinary retention, expected outcome, Rubin catheter inserted. Fevers, postoperatively, suspect atelectasis, blood cultures ordered. Hyponatremia History of Incarcerated umbilical hernia repair with enterococcus VRE wound cultures,12/31 History of Alcoholic cirrhosis, ascites, paracentesis. Reports paracentesis approximately every 6 weeks last paracentesis performed at [facility] on Monday. History of Hepatorenal syndrome Plan: Continue on current medication regime ,monitoring and symptomatic treatment. Blood cultures ordered.Fevers, reinforced aggressive pulmonary toileting with incentive spirometer. Protein supplement initiated between meals. PT OT consult in place, recommendations pending. Discussed with RN, Rubin catheter to be discontinued this afternoon and continue with post void bladder scanning.Close monitoring of renal function, electrolytes with repeat labs ordered for a.m. The impression and plan of care has been dictated as directed. : I performed a history and examination of this patient, discussed the same with the dictator. I agree with the dictator's note ,documented as a scribe. Any additional findings or plans will be noted.
--- NOTE | 2022-08-10 14:01 | P.PN ---
Subjective Progress Note Date: 08/10/22 CHIEF COMPLAINT: Incarcerated left inguinal hernia HISTORY OF PRESENT ILLNESS: Patient is postop day #2 status post repair of incarcerated left will hernia with mesh. Patient complains of abdominal pain m ostly with movement. With sitting her pain is about a 3 out of 10. She feels better than yesterday. Denies any nausea or vomiting. She is having flatus. No bowel movement. She had urinary retention and required a Rubin catheter to be placed. Patient has had low-grade temps of 100.7 and 100.2. She currently at 98.5. Blood pressures on the lower side 98/64. WBC is 5.3 hemoglobin 10.1 platelets 180 sodium is 131 potassium is 3.8 creatinine 0.78 PHYSICAL EXAM: VITAL SIGNS: Reviewed. GENERAL: Well-developed in no acute distress. HEENT: No sclera icterus. Extraocular movements grossly intact. Moist buccal mucosa. Head is atraumatic, normocephalic. ABDOMEN: Soft. Nondistended. Minimal tenderness with palpation at left groin incision site. Incision clean dry and intact. There is some swelling noted at the incision and into the suprapubic area. NEUROLOGIC: Alert and oriented. Cranial nerves II through XII grossly intact. ASSESSMENT: 1. Incarcerated left inguinal hernia status post repair with mesh 2. History of liver cirrhosis with prior paracentesis 3. Low-grade fevers likely due to atelectasis PLAN: -Encourage patient ambulate -Encourage patient to use incentive spirometer -Continue pain management -Continue Rubin catheter for urinary retention -Consult PT OT -Continue diuretics due to her history of liver cirrhosis and prior paracentesis -Continue regular diet -DVT prophylaxis Lovenox Physician Personal Care Assistant note has been reviewed by physician. Signing provider agrees with the documented findings, assessment, and plan of care. Objective - Vital Signs Vital signs: Vital Signs Temp 98.5 F 08/10/22 08:00 Pulse 78 08/10/22 08:00 Resp 19 08/10/22 08:00 BP 98/64 08/10/22 08:00 Pulse Ox 94 L 08/10/22 08:00 FiO2 Intake & Output 08/09/22 08/10/22 08/10/22 18:59 06:59 18:59 Output Total 3050 1200 Balance -3050 -1200 Output: Urine 2400 1200 Post Void Residual 650 Other: Voiding Method Indwelling Catheter - Labs CBC & Chem 7: 08/10/22 08:24 08/10/22 08:24 Labs: Abnormal Lab Results - Last 24 Hours (Table) 08/10/22 08/10/22 Range/Units 08:24 08:24 Hgb 10.1 L (11.4-16.0) gm/dL Hct 32.4 L (34.0-46.0) % Sodium 131 L (137-145) mmol/L Chloride 96 L (98-107) mmol/L BUN 18 H (7-17) mg/dL Glucose 182 H (74-99) mg/dL Calcium 7.8 L (8.4-10.2) mg/dL
[2022-08-11] MEDS: HYDROmorphone 0.5 MG/0.5 ML SYRINGE IVP PRN (05:41)
[2022-08-11] MEDS: LEVOTHYROXINE 50 MCG TAB PO SCH (06:39)
[2022-08-11] MEDS: MIDODRINE 5 MG TAB PO SCH ×3 (06:39→17:06)
[2022-08-11] MEDS: PANTOPRAZOLE 40 MG TABLET PO SCH (06:39)
[2022-08-11] MEDS: FUROSEMIDE 40 MG TAB PO SCH ×2 (09:08→17:06)
[2022-08-11] MEDS: MULTIVITAMINS, THERA 1 EACH TAB PO SCH (09:08)
[2022-08-11] MEDS: POTASSIUM CHLORIDE ER 10 MEQ TAB.ER.PRT PO SCH ×3 (09:08→21:56)
[2022-08-11] MEDS: ENOXAPARIN 40 MG/0.4 ML SYRINGE SQ SCH (09:08)
[2022-08-11] MEDS: MAGNESIUM OXIDE 400 MG TAB PO SCH ×2 (09:08→17:06)
[2022-08-11] MEDS: FOLIC ACID 1 MG TAB PO SCH ×2 (09:09→17:06)
[2022-08-11] MEDS: TAMSULOSIN 0.4 MG CAP.ER.24H PO SCH (09:09)
[2022-08-11] MEDS: SPIRONOLACTONE 25 MG TAB PO SCH (09:09)
[2022-08-11 10:41] LABS: Basophils # (A) 0.01 X 10*3/uL (0.00-0.10); Basophils % (A) 0.2 %; Eosinophils # (A) 0.06 X 10*3/uL (0.04-0.35); HCT 28.3 % (37.2-46.3); Immature Grans, Automated 0.3 %; Lymphocytes # (A) 1.12 X 10*3/uL (0.90-5.00); Lymphocytes % (A) 18.4 %; MCH 24.9 pg (27.0-32.0); MCHC 31.8 g/dL (32.0-37.0); MCV 78.4 fL (80.0-97.0); Monocytes # (A) 0.79 X 10*3/uL (0.20-1.00); NRBC Per 100 WBC 0 /100 WBCS (0.0-0.0); Neutrophils # (A) 4.09 X 10*3/uL (1.80-7.70); Neutrophils % (A) 67.1 %; Platelet Count 201 X 10*3/uL (140-440); RBC 3.61 X 10*6/uL (4.10-5.20); WBC 6.09 X 10*3/uL (4.50-10.00)
[2022-08-11 11:01] LABS: African American GFR (CKD) 104.8 (60.0-200.0); Anion Gap 9.9 mmol/L (10.00-18.00); BUN/Creat Ratio 33.08 Ratio (12.00-20.00); Blood Urea Nitrogen 22.1 mg/dL (9.0-27.0); Calcium 8.2 mg/dL (8.7-10.3); Carbon Dioxide 27.5 mmol/L (20.0-27.5); Non-African American GFR(CKD) 90.4 (60.0-200.0); Potassium 4.6 mmol/L (3.5-5.5)
[2022-08-11] MEDS: HYDROcodone/APAP 5-325MG 1 EACH TAB PO PRN ×2 (12:04→21:56)
--- NOTE | 2022-08-11 12:54 | P.PN ---
Subjective Progress Note Date: 08/11/22 CHIEF COMPLAINT: Incarcerated left inguinal hernia HISTORY OF PRESENT ILLNESS: Patient is postop day #3 status post repair of incarcerated left will hernia with mesh. Patient sitting up in bed. She repor ts that her pain is controlled. She denies any nausea or vomiting. She continues to have low-grade temps. She is having flatus. No bowel movement. She did work with physical therapy and in the hallway. T-max 100.6. BP 94/58. WBC 6.09 hemoglobin 10.1 down 9.0 platelet of 201 sodium 132 potassium 4.6 creatinine 0.7 PHYSICAL EXAM: VITAL SIGNS: Reviewed. GENERAL: Well-developed in no acute distress. HEENT: No sclera icterus. Extraocular movements grossly intact. Moist buccal mucosa. Head is atraumatic, normocephalic. ABDOMEN: Soft. Nondistended. Minimal tenderness with palpation at left groin incision site. Incision clean dry and intact. There is swelling noted at the incision and into the suprapubic area. Ecchymosis in suprapubic area NEUROLOGIC: Alert and oriented. Cranial nerves II through XII grossly intact. ASSESSMENT: 1. Incarcerated left inguinal hernia status post repair with mesh 2. History of liver cirrhosis with prior paracentesis 3. Low-grade fevers likely due to atelectasis PLAN: -Encourage patient ambulate -Encourage patient to use incentive spirometer -Continue pain management -Continue Rubin catheter for urinary retention -Consult PT OT -Continue regular diet -DVT prophylaxis Lovenox Physician Design Engineering Intern note has been reviewed by physician. Signing provider agrees with the documented findings, assessment, and plan of care. Objective - Vital Signs Vital signs: Vital Signs Temp 99.9 F H 08/11/22 07:56 Pulse 85 08/11/22 07:56 Resp 18 08/11/22 07:56 BP 94/58 08/11/22 07:56 Pulse Ox 95 08/11/22 07:56 FiO2 Intake & Output 08/10/22 08/11/22 08/11/22 18:59 06:59 18:59 Intake Total 100 Output Total 1475 300 Balance 100 -1475 -300 Intake: Intake, IV Titration 100 Amount cefTRIAXone 1 gm In 100 Sodium Chloride 0.9% 50 ml @ 100 mls/hr IVPB Q24HR [facility] Rx#:[id number] Output: Urine 1475 300 Other: Voiding Method Indwelling Catheter - Labs CBC & Chem 7: 08/11/22 07:08 08/11/22 07:08 Labs: Abnormal Lab Results - Last 24 Hours (Table) 08/11/22 08/11/22 Range/Units 07:08 07:08 RBC 3.61 L (4.10-5.20) X 10*6/uL Hgb 9.0 L (12.0-15.0) g/dL Hct 28.3 L (37.2-46.3) % MCV 78.4 L (80.0-97.0) fL MCH 24.9 L (27.0-32.0) pg MCHC 31.8 L (32.0-37.0) g/dL RDW 16.0 H (11.5-14.5) % Sodium 132 L (135-145) mmol/L Chloride 94 L (96-109) mmol/L Anion Gap 9.90 L (10.00-18.00) mmol/L BUN/Creatinine Ratio 33.08 H (12.00-20.00) Ratio Calcium 8.2 L (8.7-10.3) mg/dL
[2022-08-11] MEDS ORDERED: IPRATROPIUM-ALBUTEROL 3 ML NEB INHALATION PRN (13:35)
[2022-08-11] MEDS: IPRATROPIUM-ALBUTEROL 3 ML NEB INHALATION SCH ×2 (15:58→19:32)
[2022-08-12] MEDS: BENZOCAINE/MENTHOL LOZENG 1 EACH LOZENGE MUCOUS MEM PRN ×2 (00:21→06:52)
[2022-08-12] MEDS: LEVOTHYROXINE 50 MCG TAB PO SCH (06:52)
[2022-08-12] MEDS: PANTOPRAZOLE 40 MG TABLET PO SCH (06:52)
[2022-08-12] MEDS: MIDODRINE 5 MG TAB PO SCH ×2 (06:52→11:31)
[2022-08-12] MEDS: ENOXAPARIN 40 MG/0.4 ML SYRINGE SQ SCH (07:39)
[2022-08-12] MEDS: FUROSEMIDE 40 MG TAB PO SCH (07:39)
[2022-08-12] MEDS: FOLIC ACID 1 MG TAB PO SCH (07:39)
[2022-08-12] MEDS: POTASSIUM CHLORIDE ER 10 MEQ TAB.ER.PRT PO SCH (07:39)
[2022-08-12] MEDS: HYDROcodone/APAP 5-325MG 1 EACH TAB PO PRN (07:39)
[2022-08-12] MEDS: SPIRONOLACTONE 25 MG TAB PO SCH (07:40)
[2022-08-12] MEDS: MAGNESIUM OXIDE 400 MG TAB PO SCH (07:40)
[2022-08-12] MEDS: MULTIVITAMINS, THERA 1 EACH TAB PO SCH (07:40)
[2022-08-12] MEDS: TAMSULOSIN 0.4 MG CAP.ER.24H PO SCH (07:40)
[2022-08-12] MEDS: IPRATROPIUM-ALBUTEROL 3 ML NEB INHALATION SCH ×2 (09:35→13:36)
[2022-08-12 10:45] LABS: Basophils % (A) 0 %; Eosinophils # (A) 0.1 k/uL (0-0.7); Eosinophils % (A) 1 %; HCT 33.5 % (34.0-46.0); HGB 10.4 gm/dL (11.4-16.0); Hypochromasia Moderate; Lymphocytes # (A) 0.8 k/uL (1.0-4.8); Lymphocytes % (A) 17 %; MCH 25.3 pg (25.0-35.0); MCHC 31.1 g/dL (31.0-37.0); MCV 81.5 fL (80.0-100.0); Mean Platelet Volume 10.2; Monocytes # (A) 0.3 k/uL (0-1.0); Monocytes % (A) 7 %; Neutrophils # (A) 3.4 k/uL (1.3-7.7); Neutrophils % (A) 72 %; Platelet Count 189 k/uL (150-450); RBC 4.12 m/uL (3.80-5.40); RDW 15.1 % (11.5-15.5); WBC 4.8 k/uL (3.8-10.6)
--- NOTE | 2022-08-12 11:38 | P.DS ---
Providers Date of admission: 08/10/22 08:18 Expected date of discharge: 08/12/22 Attending physician: Pankaj Haro Consults: 08/08/22 11:58 Consult Physician Routine Consulting Provider: Stanton Camara Consult Reason/Comments: Management medical Do you want consulting provider notified?: Yes Primary care physician: Stanton Camara MD Hospital Course: Discharge diagnosis 1. Incarcerated left inguinal hernia status post repair with mesh 2. History of liver cirrhosis with prior paracentesis 3. Low-grade fevers likely due to atelectasis 4. Urinary retention resolved Hospital course This is a 66-year-old female with a an incarcerated left inguinal hernia status post repair with mesh placement. Patient reports that her pain is controlled. She has been up and ambulating. She is having bowel movements. Tolerating diet. She is urinating without difficulty. She did have mild low-grade fevers likely due to atelectasis. Patient will be discharged with antibiotics. Incision site is clean dry and intact. She does have some minimal swelling and bruising noted at incision site and suprapubic area. Patient is stable for discharge. Please refer to chart for any further details. Physician Demand Planning Manager note has been reviewed by physician. Signing provider agrees with the documented findings, assessment, and plan of care. Patient Condition at Discharge: Stable Plan - Discharge Summary Discharge Rx Participant: No New Discharge Prescriptions: New Docusate [Colace] 100 mg PO BID #20 capsule oxyCODONE HCL [OxyIR] 5 mg PO Q6H PRN 3 Days #10 tab PRN Reason: Pain Acetaminophen Tab [Tylenol] 650 mg PO Q6H #30 tab Ibuprofen [Motrin] 600 mg PO Q6HR PRN #40 tab PRN Reason: Pain Levofloxacin [Levaquin] 500 mg PO DAILY 7 Days #7 tab Continue Vitamin B Complex 1 cap PO DAILY@1700 Levothyroxine Sodium [Synthroid] 50 mcg PO AC-BRKFST Potassium Chloride ER [K-Dur 20] 10 meq PO TID Folic Acid 0.4 mg PO BID@0900,1700 Spironolactone [Aldactone] 100 mg PO DAILY Multivitamin [Multivitamins Adult Gummies] 1 tab PO DAILY rOPINIRole HCL [Requip] 0.5 mg PO HS PRN PRN Reason: RLS Pantoprazole [Protonix] 40 mg PO AC-BRKFST tab Magnesium Oxide [Mag-Ox] 250 mg PO BID@0900,1700 Sennosides [Senna] 8.6 mg PO BID Midodrine [ProAmatine] 5 mg PO AC-TID@07,11,1630 Furosemide [Lasix] 40 mg PO 0900,1600 #0 traMADol HCL 1 tab PO BID PRN PRN Reason: Pain No Action oxyCODONE HCL [Oxycodone HCl] 5 mg PO BID PRN PRN Reason: Pain Discharge Medication List Multivitamin [Multivitamins Adult Gummies] 1 tab PO DAILY 03/15/21 [History] Vitamin B Complex 1 cap PO DAILY@1700 06/19/21 [History] rOPINIRole HCL [Requip] 0.5 mg PO HS PRN 06/19/21 [History] Pantoprazole [Protonix] 40 mg PO AC-BRKFST tab 06/24/21 [Rx] Folic Acid 0.4 mg PO BID@0900,1700 12/29/21 [History] Levothyroxine Sodium [Synthroid] 50 mcg PO AC-BRKFST 12/29/21 [History] Magnesium Oxide [Mag-Ox] 250 mg PO BID@0900,1700 12/29/21 [History] Midodrine [ProAmatine] 5 mg PO AC-TID@,,1630 12/29/21 [History] Potassium Chloride ER [K-Dur 20] 10 meq PO TID 12/29/21 [History] Sennosides [Senna] 8.6 mg PO BID 12/29/21 [History] Furosemide [Lasix] 40 mg PO 0900,1600 #0 01/14/22 [Rx] oxyCODONE HCL [Oxycodone HCl] 5 mg PO BID PRN 08/03/22 [History] Acetaminophen Tab [Tylenol] 650 mg PO Q6H #30 tab 08/08/22 [Rx] Docusate [Colace] 100 mg PO BID #20 capsule 08/08/22 [Rx] Ibuprofen [Motrin] 600 mg PO Q6HR PRN #40 tab 08/08/22 [Rx] Spironolactone [Aldactone] 100 mg PO DAILY 08/08/22 [History] oxyCODONE HCL [OxyIR] 5 mg PO Q6H PRN 3 Days #10 tab 08/08/22 [Rx] traMADol HCL 1 tab PO BID PRN 08/08/22 [History] Levofloxacin [Levaquin] 500 mg PO DAILY 7 Days #7 tab 08/12/22 [Rx] Follow up Appointment(s)/Referral(s): [facility], [NON-STAFF] - 1-2 Days (will call to set up appointment any question please call agency. ) Pankaj Haro MD [STAFF PHYSICIAN] - 08/16/22 2:15 pm Stanton Camara MD [Primary Care Provider] - 3 Days Activity/Diet/Wound Care/Special Instructions: No driving while taking Oxycodone No lifting over 10 pounds Shower daily. No soaking or tub baths for 2 weeks Very light activity until you are reevaluated at your follow up appointment with your surgeon Discharge Disposition: HOME SELF-CARE
[2022-08-12 12:20] VITALS: BP 97/61; PULSE 86; RESP 16; TEMP 98.9
--- NOTE | 2022-08-12 17:01 | P.PN ---
Subjective Progress Note Date: 08/11/22 - History of Present Illness This is 66-year-old female with past medical history of alcoholic cirrhosis, ascites, gastroesophageal reflux disease, hypothyroidism, incarcerated umbilical hernia repair, status post incarcerated left inguinal hernia repair, postop day #1. Reports significant pain. Reports minimal urine output since last night. Renal function stable. T-max 99.3. Maintaining O2 sats in the 90s on room air. 08/10/2022 yesterday voiding 5-600, and continued to have high postvoid bladder scans of similar amounts, Rubin catheter inserted. Maintained on Aldactone and Lasix. Slept better. Consumed 25% of breakfast .Denies nausea vomiting or diarrhea. Reports cramping abdominal sensation and incisional pain with movement. Passing flatus, no bowel movement postop. T-max 100.7. Blood pressures soft. Sodium decreased to 131. 08/11/2022 reports sharp abdominal pain with movement, unchanged-no worse. Denies nausea, vomiting. Passing flatus, no bowel movement. T-max 100.6, WBC within normal limits. Preliminary blood cultures reporting no growth. Hem oglobin decreased to 9, platelets 201. Sodium 132, renal function, lites stable. Blood pressures soft. Maintaining O2 sats in the 90s on room air. Objective - Vital Signs Vital signs: Vital Signs Temp 98.9 F 08/12/22 08:00 Pulse 86 08/12/22 08:00 Resp 16 08/12/22 08:00 BP 99/66 08/12/22 11:32 Pulse Ox 96 08/12/22 08:00 FiO2 Intake & Output 08/11/22 08/12/22 08/12/22 18:59 06:59 18:59 Intake Total 50 Output Total 600 700 500 Balance -550 -700 -500 Intake: Intake, IV Titration 50 Amount cefTRIAXone 1 gm In 50 Sodium Chloride 0.9% 50 ml @ 100 mls/hr IVPB Q24HR [facility] Rx#:[id number] Output: Urine 600 700 Post Void Residual 500 Other: Voiding Method Indwelling Catheter Toilet - Exam - Exam Gen: sitting up in chair, no acute distress HEENT: normocephalic, atraumatic,MMM Neck: supple, no JVD CV: RRR, no murmur Lungs: Normal effort, fine bibasilar crackles with expiratory wheeze Abd; soft, nondistended, status post surgery,+BS Neuro: alert and oriented x3, no focal deficits Skin: warm and dry - Labs CBC & Chem 7: 08/12/22 10:30 08/11/22 07:08 Labs: Abnormal Lab Results - Last 24 Hours (Table) 08/12/22 Range/Units 10:30 Hgb 10.4 L (11.4-16.0) gm/dL Hct 33.5 L (34.0-46.0) % Lymphocytes # 0.8 L (1.0-4.8) k/uL Microbiology - Last 24 Hours (Table) 08/10/22 12:47 Blood Culture - Preliminary Blood No Growth after 48 hours 08/10/22 12:47 Blood Culture - Preliminary Blood No Growth after 48 hours Assessment and Plan Assessment: Incarcerated left inguinal hernia repair, management per surgery. Possible postoperative Urinary retention, expected outcome, Rubin catheter inserted. Fevers, postoperatively, suspect atelectasis Hyponatremia History of Incarcerated umbilical hernia repair with enterococcus VRE wound cultures,12/31 History of Alcoholic cirrhosis, ascites, paracentesis. Reports paracentesis approximately every 6 weeks last paracentesis performed at [facility] on Monday. History of Hepatorenal syndrome Plan: Continue on current medication regime ,monitoring and symptomatic treatment. Aggressive pulmonary toileting with incentive spirometer;Nebulized bronchodilators added to med regimen. Increase ambulation as tolerated. Discharge planning in progress for tomorrow as per primary. The impression and plan of care has been dictated as directed. : I performed a history and examination of this patient, discussed the same with the dictator. I agree with the dictator's note ,documented as a scribe. Any additional findings or plans will be noted.
--- NOTE | 2022-08-12 17:09 | P.PN ---
Subjective Progress Note Date: 08/12/22 - History of Present Illness This is 66-year-old female with past medical history of alcoholic cirrhosis, ascites, gastroesophageal reflux disease, hypothyroidism, incarcerated umbilical hernia repair, status post incarcerated left inguinal hernia repair, postop day #1. Reports significant pain. Reports minimal urine output since last night. Renal function stable. T-max 99.3. Maintaining O2 sats in the 90s on room air. 08/10/2022 yesterday voiding 5-600, and continued to have high postvoid bladder scans of similar amounts, Rubin catheter inserted. Maintained on Aldactone and Lasix. Slept better. Consumed 25% of breakfast .Denies nausea vomiting or diarrhea. Reports cramping abdominal sensation and incisional pain with movement. Passing flatus, no bowel movement postop. T-max 100.7. Blood pressures soft. Sodium decreased to 131. 08/11/2022 reports sharp abdominal pain with movement, unchanged-no worse. Denies nausea, vomiting. Passing flatus, no bowel movement. T-max 100.6, WBC within normal limits. Preliminary blood cultures reporting no growth. Hem oglobin decreased to 9, platelets 201. Sodium 132, renal function, lites stable. Blood pressures soft. Maintaining O2 sats in the 90s on room air. 08/12/2022. Empiric antibiotics initiated yesterday.Feels Better. Preliminary blood cultures remain negative. T-max 100.5, normal WBC. ambulating in hallway yesterday, tolerated exertion well. Positive flatus, no bowel movement Pain controlled, Continues on Flomax, small post void residuals reported. Hemoglobin 10.4, platelets 189 Objective - Vital Signs Vital signs: Vital Signs Temp 98.9 F 08/12/22 08:00 Pulse 86 08/12/22 08:00 Resp 16 08/12/22 08:00 BP 99/66 08/12/22 11:32 Pulse Ox 96 08/12/22 08:00 FiO2 Intake & Output 08/11/22 08/12/22 08/12/22 18:59 06:59 18:59 Intake Total 50 Output Total 600 700 500 Balance -550 -700 -500 Intake: Intake, IV Titration 50 Amount cefTRIAXone 1 gm In 50 Sodium Chloride 0.9% 50 ml @ 100 mls/hr IVPB Q24HR [facility] Rx#:[id number] Output: Urine 600 700 Post Void Residual 500 Other: Voiding Method Indwelling Catheter Toilet - Exam - Exam Gen: sitting up in bed, no acute distress. HEENT: normocephalic, atraumatic,MMM Neck: supple, no JVD CV: RRR, no murmur Lungs: Normal effort, minimal fine bibasilar crackles, no wheezing Abd; soft, nondistended, status post surgery,+BS Neuro: alert and oriented x3, no focal deficits Skin: warm and dry - Labs CBC & Chem 7: 08/12/22 10:30 08/11/22 07:08 Labs: Abnormal Lab Results - Last 24 Hours (Table) 08/12/22 Range/Units 10:30 Hgb 10.4 L (11.4-16.0) gm/dL Hct 33.5 L (34.0-46.0) % Lymphocytes # 0.8 L (1.0-4.8) k/uL Microbiology - Last 24 Hours (Table) 08/10/22 12:47 Blood Culture - Preliminary Blood No Growth after 48 hours 08/10/22 12:47 Blood Culture - Preliminary Blood No Growth after 48 hours Assessment and Plan Assessment: Incarcerated left inguinal hernia repair, management per surgery. Possible postoperative Urinary retention, expected outcome, status post Rubin catheter, Flomax added to med regimen, significantly improved. Fevers, postoperatively, suspect atelectasis Hyponatremia History of Incarcerated umbilical hernia repair with enterococcus VRE wound cultures,12/31 History of Alcoholic cirrhosis, ascites, paracentesis. Reports paracentesis approximately every 6 weeks last paracentesis performed at [facility] on Monday. History of Hepatorenal syndrome Plan: Continue on current medication regime ,monitoring and symptomatic treatment. Maintain aggressive pulmonary toileting with incentive spirometer at al with a couple more days of Ceftin empirically. Discharge planning in progress as per primary. Follow-up with PCP in 1 week. The impression and plan of care has been dictated as directed. : I performed a history and examination of this patient, discussed the same with the dictator. I agree with the dictator's note ,documented as a scribe. Any additional findings or plans will be noted.
== END 2022-08-12 14:26 | disposition home or self-care (01) | DRG 351 ==
LOC: OR 07:45 → 4SSUR 10:45 → OR 08-10 08:18 → 4SSUR 08-10 08:18
PROVIDERS: ADMIT Surgery; ATTEND Surgery
PROC: 0W9G30Z Drainage of Peritoneal Cavity with Drainage Device, Percutaneous Approach (ICD-10-PCS; 2022-08-08)
PROC: 3E0T3BZ Introduction of Anesthetic Agent into Peripheral Nerves and Plexi, Percutaneous Approach (ICD-10-PCS; 2022-08-08)
PROC: 0YU60JZ Supplement Left Inguinal Region with Synthetic Substitute, Open Approach (ICD-10-PCS; principal; 2022-08-08 09:50)
DX: K40.30 Unilateral inguinal hernia, with obstruction, without gangrene, not specified as recurrent (principal); E87.1 Hypo-osmolality and hyponatremia; J98.11 Atelectasis; K70.31 Alcoholic cirrhosis of liver with ascites; R33.8 Other retention of urine; K21.9 Gastro-esophageal reflux disease without esophagitis; R50.9 Fever, unspecified; E03.9 Hypothyroidism, unspecified; N99.89 Other postprocedural complications and disorders of genitourinary system; Z79.890 Hormone replacement therapy; M79.7 Fibromyalgia; Z79.899 Other long term (current) drug therapy; Z86.73 Personal history of transient ischemic attack (TIA), and cerebral infarction without residual deficits; Z87.891 Personal history of nicotine dependence; Z90.710 Acquired absence of both cervix and uterus; Z98.84 Bariatric surgery status; Z87.19 Personal history of other diseases of the digestive system; Z98.1 Arthrodesis status; Z98.51 Tubal ligation status; Z90.49 Acquired absence of other specified parts of digestive tract; Z88.8 Allergy status to other drugs, medicaments and biological substances; Z91.041 Radiographic dye allergy status
CPT/HCPCS: 64999; 80048; 80053; 85025; 87040; 94640

== ENCOUNTER 2022-12-21 07:44 | Day surgery (SDC) | payer MEDICARE ==
--- NOTE | 2022-12-21 08:50 | US ---
Ultrasound-guided paracentesis. DATE OF EXAM: 12/21/2022 CLINICAL HISTORY: Ascites Preliminary imaging demonstrated only a small amount of fluid within the left abdomen. No sizable col lection within the right abdomen. Patient wished to defer the procedure. IMPRESSION: Deferred paracentesis.
[2022-12-21 08:51] VITALS: BP 119/81; PULSE 75; RESP 16; TEMP 98.7
[2022-12-21 08:54] LABS: Platelet Count 209 k/uL (150-450)
[2022-12-21 09:02] LABS: Prothrombin Time 10.3 sec (9.0-12.0)
[2022-12-21 09:09] LABS: African American GFR (CKD) >90 (>60 ml/min/1.73 sqM); Non-African American GFR(CKD) >90 (>60 ml/min/1.73 sqM)
== END 2022-12-21 08:55 | disposition home or self-care (01) ==
LOC: RADPROMAIN 07:44
PROVIDERS: ATTEND Family Medicine
DX: R18.8 Other ascites (principal); Z53.8 Procedure and treatment not carried out for other reasons
CPT/HCPCS: 76705; 82565; 85049; 85610

== ENCOUNTER 2022-12-26 06:23 | Day surgery (SDC) | payer MEDICARE ==
[~2022-12-26 06:23] MED LIST changes: -ACETAMINOPHEN TAB 500 MG TAB PO PRN; -HEPARIN SODIUM,PORCINE/PF 5,000 UNIT/0.5 ML SYRINGE SQ PRN; +ceFAZolin 1,000 MG in SODIUM CHLORIDE 0.9% IRRIGATIO 1,000 ML IRRIGATION PRN
[2022-12-26] MEDS ORDERED: DEXAMETHASONE SOD PHOSPHATE 4 MG/ML 1 ML VIAL IV ONE (06:42)
[2022-12-26] MEDS ORDERED: ONDANSETRON 4 MG/2 ML VIAL IVP ONE (06:42)
[2022-12-26] MEDS ORDERED: MIDAZOLAM 2 MG/2 ML VIAL IV PRN (06:42)
[2022-12-26] MEDS ORDERED: HYDROmorphone 0.5 MG/0.5 ML SYRINGE IVP PRN (07:00)
[2022-12-26] MEDS: LACTATED RINGERS 1,000 ML IV SCH (07:11)
[2022-12-26] MEDS ORDERED: HYDROmorphone (PF) 1 MG/ML ONE (07:19)
[2022-12-26] MEDS ORDERED: ePHEDrine 50 MG/ML 1 ML VIAL ONE (07:19)
[2022-12-26] MEDS ORDERED: SUCCINYLCHOLINE CHLORIDE 200 MG/10 ML VIAL IV ONE (07:19)
[2022-12-26] MEDS ORDERED: fentaNYL (PF) 50 MCG/ML 2 ML AMP ONE (07:19)
[2022-12-26] MEDS ORDERED: MIDAZOLAM 2 MG/2 ML VIAL ONE (07:19)
[2022-12-26] MEDS ORDERED: ROCURONIUM 10 MG/ML (5 ML VIAL) IV ONE (07:19)
[2022-12-26] MEDS ORDERED: KETAMINE 10 MG/ML 20 ML VIAL ONE (07:19)
[2022-12-26] MEDS ORDERED: PROPOFOL 10 MG/ML 20 ML VIAL IV ONE (07:19)
[2022-12-26] MEDS ORDERED: PHENYLEPHRINE-0.9% NACL SYG 1,000 MCG/10 ML SYRINGE ONE (07:19)
[2022-12-26] MEDS ORDERED: LIDOCAINE 2% INJ 20 MG/ML (2 ML VIAL) ONE (07:19)
[2022-12-26] MEDS ORDERED: methylPREDNISolone ACETATE 40 MG/ML 1 ML VIAL MISCELLANE ONE (07:25)
[2022-12-26] MEDS ORDERED: THROMBIN (BOVINE) 5,000 UNIT VIAL TOPICAL ONE (07:25)
[2022-12-26] MEDS ORDERED: LIDOCAINE 0.5%-EPI 1:200,000 50 ML VIAL SQ ONE (07:25)
[2022-12-26] MEDS ORDERED: GELATIN SPONGE,ABSORB (LARGE) 1 EACH SPONGE TOPICAL ONE (07:25)
--- NOTE | 2022-12-26 08:55 | FL ---
Intraoperative/procedural fluoroscopic services were provided. Total fluoroscopy time is 1 seconds wi th a total of 1 submitted images to PACS. Please see the operative/procedural note for further detail s. DAP: 0.4662
[2022-12-26] MEDS ORDERED: LACTATED RINGERS 1,000 ML IV ONE (09:02)
[2022-12-26] MEDS ORDERED: BENZOCAINE/MENTHOL LOZENG 1 EACH LOZENGE MUCOUS MEM PRN (09:22)
[2022-12-26] MEDS ORDERED: CYCLOBENZAPRINE 10 MG TAB PO PRN (09:23)
[2022-12-26] MEDS ORDERED: MAGNESIUM HYDROXIDE 2,400 MG/10 ML CUP PO PRN (09:23)
[2022-12-26] MEDS ORDERED: ONDANSETRON 4 MG/2 ML VIAL IVP PRN (09:23)
--- NOTE | 2022-12-26 09:30 | P.OP ---
Date of Procedure: 12/26/22 Preoperative Diagnosis: Herniated nucleus pulposis L5-S1, left lower extremity radiculopathy, low back pain, lower extremity pain, lower extremity weakness Postoperative Diagnosis: Same with evidence of epidural lipoma Anesthesia: GETA Pathology: none sent Condition: stable Disposition: PACU Description of Procedure: BRIEF OPERATIVE NOTE Preoperative Diagnosis:Herniated nucleus pulposis L5-S1, left lower extremity radiculopathy, low back pain, lower extremity pain, lower extremity weakness Postoperative Diagnosis:Herniated nucleus pulposis L5-S1, left lower extremity radiculopathy, low back pain, lower extremity pain, lower extremity weakness with findings of epidural lipoma Procedure: Laminectomy and decompression L5-S1 Discectomy for decompression L5-S1 Surgeon: Dr. Huynh Associate Producer: Naveed Garcia is present throughout the entire the case persistence during positioning, dissection, exposure, visualization, and all crucial elements of the case as well as closure. Anesthesia: General anesthesia Estimated blood loss: Approximately 100 mL Complications: None apparent Components implanted: None Disposition: To recovery room in good stable condition. OPERATIVE INDICATIONS The patient has been having issues in their lower back and lower extremities. She had been having severe pain at her left lower extremity some weakness over S1 distribution. She is having worsening split symptoms despite aggressive conservative treatment. She is on have disc herniation at evidence of compression at L5-S1 space which correlated well with her back and lower extremity symptoms. The patient has been through conservative treatment. We discussed various treatment options including surgery, and the patient wishes to proceed with surgery We discussed the risk, patient's alternatives and benefits of surgery including but not limited to, risk of bleeding risk of infection, risk of need for further surgery, risk of decreased, loss of motion, loss of function, nerve damage, paralysis, heart attack, blindness and . OPERATIVE SUMMARY After discussing all the risks, patient alternatives and benefits at length, the patient elected to proceed with surgical intervention, signed informed consent, and presented for their procedure. The patient was seen and examined in the preoperative holding area and the surgical site was marked. The patient was given antibiotics and brought to the operating room. The patient was sedated and intubated by anesthesia in standard fashion. The patient was positioned on to the operating room table in a prone position on the appropriate frame which was well-padded and well molded. We were careful to pad any bony prominences and pressure points. We were careful to maintain the patient's cervical spine and good neutral alignment and position throughout. The patient was prepped and draped in a normal standard fashion. An appropriate timeout and keystone protocol performed. We were able to proceed with the surgery. Fluoroscopy was utilized to establish the appropriate level. The local wound area was infiltrated with local anesthetic. An incision was made at the midline longitudinally over the appropriate levels at L5-S1. Dissection was taken down subcutaneously to the level of the fascia which was split midline. Dissection was taken over the lamina. Intraoperative fluoroscopy was taken which showed a marker at the appropriate level of L5-S1. With the appropriate level positively confirmed, we were able to proceed with laminectomy. The wound was copiously irrigated and suctioned dry as had been done periodically throughout the case. I performed a laminectomy with a combination of curettes and a high-speed bur and Kerrison rongeurs. A small medial facetectomy was performed again further access. A partial foraminotomy was also performed. Portions of the ligamentum flavum were taken down to expose the dura and traversing nerve root. I was able to mobilize the traversing nerve root and gain access to the disc space. Note was made of obvious compression from the disc. Protecting the soft tissue structures, a small annulotomy was established. I was able to perform discectomy and remove any extruded disc fragments and any loose fragments from within the disc itself. There is some disc desiccation noted. I tried to preserve the disc annulus that appeared stable. There were no further extruded fragments noted. There was also evidence of increased epidural fatty collection. It was not well-organized but there was some increased fat and potential lipoma at the area causing some further compression at the traversing nerve root with left at L5-S1. I was able to remove significant portions if not all of the fatty tissue to get good decompression further. There is no evidence of dural tear or leak. Good hemostasis maintained. The wound was copiously irrigated and suctioned dry. Good decompression and discectomy was noted. We were able to proceed with closure. The fascia was closed for a watertight closure. The subcuticular tissue was closed with absorbable suture. The wound was cleaned and dried and dressed with the appropriate dressing. The drapes were broken down. The patient was gently rolled back onto their hospital bed being careful to maintain their cervical spine and good neutral alignment and position. They were woken up by anesthesia, extubated, and brought to the recovery room in good stable condition. The patient will be admitted to the hospital for observation and for appropriate postoperative care, medical management and monitoring. We will continue to follow them closely about the postoperative course.
[2022-12-26] MEDS: MIDODRINE 5 MG TAB PO SCH ×2 (11:57→16:38)
[2022-12-26] MEDS: POTASSIUM CHLORIDE ER 10 MEQ TAB.ER.PRT PO SCH ×2 (16:54→21:30)
[2022-12-26] MEDS: SODIUM CHLORIDE 0.9% 1,000 ML IV SCH ×2 (16:58→21:31)
[2022-12-27] MEDS: LACTATED RINGERS 1,000 ML IV SCH (01:14)
[2022-12-27] MEDS: HYDROmorphone 0.5 MG/0.5 ML SYRINGE IVP PRN ×2 (03:37→08:57)
[2022-12-27] MEDS: MIDODRINE 5 MG TAB PO SCH ×3 (04:57→16:47)
[2022-12-27] MEDS: LEVOTHYROXINE 50 MCG TAB PO SCH (04:57)
[2022-12-27] MEDS: SODIUM CHLORIDE 0.9% 1,000 ML IV SCH (04:59)
[2022-12-27] MEDS: SPIRONOLACTONE 25 MG TAB PO SCH (08:46)
[2022-12-27] MEDS: POTASSIUM CHLORIDE ER 10 MEQ TAB.ER.PRT PO SCH ×3 (08:47→23:44)
[2022-12-27] MEDS: FUROSEMIDE 80 MG TAB PO SCH (08:47)
[2022-12-27] MEDS: SENNOSIDES-DOCUSATE SODIUM 1 EACH TAB PO SCH (08:48)
[2022-12-27] MEDS: MULTIVITAMINS, THERA 1 EACH TAB PO SCH (08:48)
[2022-12-27] MEDS: SENNOSIDES 8.6 MG TAB PO SCH (08:48)
[2022-12-27] MEDS: PANTOPRAZOLE 40 MG TABLET PO SCH (08:48)
[2022-12-27] MEDS: DOCUSATE 100 MG CAP PO SCH (08:48)
[2022-12-27] MEDS: FERROUS SULFATE 325 MG TAB PO SCH (08:48)
[2022-12-27] MEDS: FOLIC ACID 1 MG TAB PO SCH (08:50)
[2022-12-27] MEDS ORDERED: NON FORMULARY DRUG (Vitamin B Complex [Vitamin B Complex] 1 EACH Capsule) PO SCH (09:00)
--- NOTE | 2022-12-27 13:01 | P.PN ---
Progress Note - Text Progress Note Date: 12/27/22 Orthopedic Spine History of present illness: Patient is a pleasant 67-year-old female who is seen at the bedside following laminectomy performed yesterday. Patient states they are doing ok postsurgically. She is not experiencing any lower extremity weakness or radiculopathy bilaterally. Her leg pain is better controlled postoperatively. She is having significant pain at her surgical site at the lumbosacral spine with increased activities. It is better controlled at rest. She continues to require oral and IV narcotic pain medications for pain control. She has had some nausea today which has been controlled with Zofran. Patient does live at home alone and does not feel she is ready for discharge home today given her required IV narcotic medications and frequent oral narcotic medications. He has been taking oral oxycodone 10 mg for pain control. She does take this medicine regularly in the outpatient setting without difficulty. Currently does not complain of fever or chills. Patient is eating and voiding freely without difficulty. Patient does not have any other complaints at bedside. Physical Exam Laminectomy/Discectomy: Status post surgical day number 1 Patient is awake, alert, and oriented 3 Vital signs stable Good chest excursion with deep inspiration and expiration Dorsiflexion, plantarflexion, and extensor hallucis longus positive sustained bilaterally No signs or symptoms of DVT; no calf pain; calves are soft nontender Dressing is clean, dry, and intact; no erythema, purulence, or signs of infection Assessment: Status post L5-S1 laminectomy and decompression with discectomy Lumbosacral pain L5-S1 herniated nucleus pulposus Lumbosacral stenosis Left lower extremity radiculopathy, improved postoperative Fibromyalgia History of liver damage Hypothyroidism Plan: 1. Patient has had some difficulty with pain control postoperatively continues to require oral and IV pain locations. We did discuss we'll plan to wean off of IV narcotic medications in anticipation for discharge home tomorrow. Patient may continue with oxycodone 10 mg/325 mg 1 tab every 4 hours as needed for pain and cyclobenzaprine 10 mg as prescribed as needed for muscle spasm. 2. Ambulate as tolerated; work with Physical Therapy 3. Patient has had some nausea with her medications. She may continue with Zofran as needed for nausea 4. We will continue to follow the patient closely. We will currently planned for discharge home tomorrow, 12/28/2022. Patient can follow-up with Naveed Swenson PA-C or Dr. Tyler Huynh at [facility] in 2-3 weeks following discharge
[2022-12-28] MEDS: SODIUM CHLORIDE 0.9% 1,000 ML IV SCH (01:20)
[2022-12-28] MEDS: LACTATED RINGERS 1,000 ML IV SCH (01:21)
[2022-12-28 03:03] VITALS: TEMP 98.4
[2022-12-28] MEDS: LEVOTHYROXINE 50 MCG TAB PO SCH (04:55)
[2022-12-28] MEDS: MIDODRINE 5 MG TAB PO SCH ×2 (04:56→12:40)
[2022-12-28 07:44] VITALS: RESP 18
[2022-12-28] MEDS: SENNOSIDES-DOCUSATE SODIUM 1 EACH TAB PO SCH (09:33)
[2022-12-28] MEDS: FUROSEMIDE 80 MG TAB PO SCH (09:33)
[2022-12-28] MEDS: PANTOPRAZOLE 40 MG TABLET PO SCH (09:33)
[2022-12-28] MEDS: FERROUS SULFATE 325 MG TAB PO SCH (09:33)
[2022-12-28] MEDS: FOLIC ACID 1 MG TAB PO SCH (09:33)
[2022-12-28] MEDS: DOCUSATE 100 MG CAP PO SCH (09:33)
[2022-12-28] MEDS: POTASSIUM CHLORIDE ER 10 MEQ TAB.ER.PRT PO SCH (09:33)
[2022-12-28] MEDS: SENNOSIDES 8.6 MG TAB PO SCH (09:34)
[2022-12-28] MEDS: MULTIVITAMINS, THERA 1 EACH TAB PO SCH (09:34)
[2022-12-28] MEDS: SPIRONOLACTONE 25 MG TAB PO SCH (09:34)
--- NOTE | 2022-12-28 10:46 | P.DS ---
Providers Date of admission: 12/26/22 Attending physician: Elian Huynh Primary care physician: Stanton Camara MD Hospital Course: The patient presented on the day of admission as per their operative note. She underwent laminectomy decompression with discectomy at L5-S1 for her disc herniation at that level with lower extremity radiculopathy. She feels her leg is doing somewhat better her back is still sore. She feels the pain is better controlled today. She has been mobile in her room and is sitting up in bed. She is tolerating her regular diet. She is tolerating pain adequately with oral medications. She denies fevers chills. She feels her legs made some improvement. Physical Exam The incision site is clean dry and intact. There is no erythema no drainage. There is no purulence no evidence of infection. The dressing is clear. There is no drainage. There is no bleeding. Abdomen soft and nontender. Chest has good excursion with deep inspiration and expiration. The patient has active and passive range of motion intact at the upper and lower extremities. There is no acute change in neurologic status. She has sustained dorsal to plantar flexion and EHL intact. Hospital Course Postoperative day #2 status post laminectomy decompression with discectomy at L5-S1 for disc herniation with lower extremity radiculopathy The patient has been making steady progress postoperatively. She was initially having too much pain and was still requiring IV medication and was unable to be discharged home yesterday. Today she is doing much better in terms of her pain control and the oral medication is controlling her pain adequately. They have completed the prophylactic antibiotics without any signs or symptoms of infection. The patient has been able to advance their diet, and is tolerating diet adequately. The pain was initially controlled with IV medications and is now controlled appropriately with oral medications. The patient has been able to increase their mobilization. The patient has progressed appropriately. I think they are in good stable condition for discharge today. They will be sent home with appropriate prescriptions. I answered their questions to the best of my ability in a language that they can understand and they are agreeable with the plan. They will follow up as directed in approximately 2 weeks or sooner if she is having problems. Patient Condition at Discharge: Good Plan - Discharge Summary Discharge Rx Participant: No New Discharge Prescriptions: New oxyCODONE HCL [oxyCODONE HCL (IR)] 10 mg PO Q6H PRN 3 Days #12 tab PRN Reason: Pain No Action Vitamin B Complex 1 cap PO QAM Levothyroxine Sodium [Synthroid] 50 mcg PO AC-BRKFST Potassium Chloride ER [K-Dur 20] 10 meq PO TID Folic Acid 0.4 mg PO QAM oxyCODONE HCL [Oxycodone HCl] 10 mg PO TID Spironolactone [Aldactone] 100 mg PO QAM Docusate [Colace] 100 mg PO QAM Ferrous Sulfate [Iron] 325 mg PO QAM Sennosides [Senokot] 8.6 mg PO QAM Multivitamin [Multivitamins Adult Gummies] 1 tab PO QAM rOPINIRole HCL [Requip] 0.5 mg PO HS PRN PRN Reason: RLS Pantoprazole [Protonix] 40 mg PO AC-BRKFST tab Midodrine [ProAmatine] 5 mg PO AC-TID@ Furosemide [Lasix] 80 mg PO QAM Discharge Medication List Multivitamin [Multivitamins Adult Gummies] 1 tab PO QAM 03/15/21 [History] Vitamin B Complex 1 cap PO QAM 06/19/21 [History] rOPINIRole HCL [Requip] 0.5 mg PO HS PRN 06/19/21 [History] Pantoprazole [Protonix] 40 mg PO AC-BRKFST tab 06/24/21 [Rx] Folic Acid 0.4 mg PO QAM 12/29/21 [History] Levothyroxine Sodium [Synthroid] 50 mcg PO AC-BRKFST 12/29/21 [History] Midodrine [ProAmatine] 5 mg PO AC-TID@12/29/21 [History] Potassium Chloride ER [K-Dur 20] 10 meq PO TID 12/29/21 [History] oxyCODONE HCL [Oxycodone HCl] 10 mg PO TID 08/03/22 [History] Spironolactone [Aldactone] 100 mg PO QAM 08/08/22 [History] Docusate [Colace] 100 mg PO QAM 12/21/22 [History] Ferrous Sulfate [Iron] 325 mg PO QAM 12/21/22 [History] Furosemide [Lasix] 80 mg PO QAM 12/21/22 [History] Sennosides [Senokot] 8.6 mg PO QAM 12/21/22 [History] oxyCODONE HCL [oxyCODONE HCL (IR)] 10 mg PO Q6H PRN 3 Days #12 tab 12/26/22 [Rx] Follow up Appointment(s)/Referral(s): Elian Huynh DO [Doctor of Osteopathic Medicine] - 2 Weeks Activity/Diet/Wound Care/Special Instructions: Keep site clean. May shower with waterproof Tegaderm intact. Do not soak in a tub. After 72 hours postoperatively, patient May remove dressing and then may shower with area uncovered. Leave glue intact and allow it to fray off on its own. May ambulate as tolerated. Avoid heavy or rigorous activity. No repetitive bending twisting or lifting. No overhead work. Discharge Disposition: HOME SELF-CARE
[2022-12-28 12:36] VITALS: BP 116/71; PULSE 98
== END 2022-12-28 16:05 | disposition home or self-care (01) ==
LOC: OR 06:23 → 5NMEDONC 09:20 → OR 12-28 16:05
PROVIDERS: ATTEND Orthopaedic Surgery Orthopaedic Surgery of the Spine
DX: M48.07 Spinal stenosis, lumbosacral region (principal); E03.9 Hypothyroidism, unspecified; E78.5 Hyperlipidemia, unspecified; Z79.899 Other long term (current) drug therapy; Z82.49 Family history of ischemic heart disease and other diseases of the circulatory system
CPT/HCPCS: 97530; 97162; 86900; 86901; 84132; 86850; 72100; 63030; J1030; J0690 ×3; J2405 ×2; J1170

== ENCOUNTER → 2023-03-30 | Outpatient (CLI) | payer MEDICARE ==
[2023-03-30 20:05] LABS: ALT 27 U/L (8-44); AST 30 U/L (13-35); Albumin/Globulin Ratio 1.82 Ratio (1.60-3.17); Alkaline Phosphatase 133 U/L (41-126); BUN/Creat Ratio 27.57 Ratio (12.00-20.00); Blood Urea Nitrogen 19.3 mg/dL (9.0-27.0); Calcium 8.9 mg/dL (8.7-10.3); Carbon Dioxide 24.4 mmol/L (21.6-31.8); Chloride 103 mmol/L (96-109); Globulin 2.2 d/dL (1.6-3.3); Glucose 171 mg/dL (70-110); Potassium 4.9 mmol/L (3.5-5.5); Sodium 138 mmol/L (135-145); Total Bilirubin 0.3 mg/dL (0.3-1.2); Total Protein 6.2 d/dL (6.2-8.2)
[2023-03-30 20:14] LABS: Basophils # (A) 0.01 X 10*3/uL (0.00-0.10); Basophils % (A) 0.2 %; Eosinophils # (A) 0.01 X 10*3/uL (0.04-0.35); Eosinophils % (A) 0.2 %; HCT 32.6 % (37.2-46.3); Lymphocytes # (A) 0.76 X 10*3/uL (0.90-5.00); Lymphocytes % (A) 12.9 %; MCH 25.1 pg (27.0-32.0); MCHC 30.7 d/dL (32.0-37.0); MCV 81.7 FL (80.0-97.0); Monocytes # (A) 0.32 X 10*3/uL (0.20-1.00); Monocytes % (A) 5.4 %; NRBC Per 100 WBC 0 X 10*3/uL (0.00-0.01); Neutrophils # (A) 4.75 X 10*3/uL (1.80-7.70); Neutrophils % (A) 80.8 %; Platelet Count 183 X 10*3/uL (140-440); RBC 3.99 X 10*6/uL (4.10-5.20); RDW 16.7 % (11.5-14.5); WBC 5.88 X 10*3/uL (4.50-10.00)
== END | disposition home or self-care (01) ==
LOC: LABWHC1 15:03
PROVIDERS: ATTEND Internal Medicine Gastroenterology
DX: K70.31 Alcoholic cirrhosis of liver with ascites (principal)
CPT/HCPCS: 36415; 80053; 82105; 85025

== ENCOUNTER 2023-06-27 09:21 | Day surgery (SDC) | payer MEDICARE ==
[2023-06-22 09:34] VITALS: BMI 25.7
[~2023-06-27 09:21] MED LIST changes: +LACTATED RINGERS 1,000 ML IV SCH; +LIDOCAINE 1% (10MG/ML) FOR IV START INTRADERMA PRN; -ceFAZolin 1,000 MG in SODIUM CHLORIDE 0.9% IRRIGATIO 1,000 ML IRRIGATION PRN
[2023-06-27] MEDS ORDERED: LACTATED RINGERS 1,000 ML IV ONE (09:44)
[2023-06-27 10:19] VITALS: TEMP 98
[2023-06-27] MEDS ORDERED: LIDOCAINE 2% (PF) 20 MG/ML 5 ML VIAL ONE (10:53)
[2023-06-27] MEDS ORDERED: PROPOFOL 10 MG/ML 20 ML VIAL IV ONE (10:53)
--- NOTE | 2023-06-27 11:02 | P.PCN ---
Date of Procedure: 06/27/23 Procedure(s) Performed: BRIEF HISTORY: Patient is a 67-year-old, pleasant, white female scheduled for an upper endoscopy as a part of screening for esophageal varices. His diagnosis with alcoholic cirrhosis of the liver 2 years ago.. PROCEDURE PERFORMED: Esophagogastroduodenoscopy. PREOPERATIVE DIAGNOSIS: History of liver cirrhosis/screening for esophageal varices. IV sedation per anesthesia. PROCEDURE: After informed consent was obtained, the patient was brought into the endoscopy unit. IV sedation was administered by Anesthesia under continuous monitoring. Initially the Olympus GIF-140 video endoscope was inserted into the mouth. Esophagus intubated without any difficulty. It was gradually advanced into the stomach and there was evidence of previous gastric bypass surgery revealed normal gastric pouch and Donell-en-Y anastomosis there appeared normal.. The scope was advanced into the jejunum that appeared normal. The scope was then withdrawn into the gastric pouch that appeared normal. The GE junction was located at 36 cm from the incisors. the rectum where small esophageal va rices identified. The rest of the esophagus appeared normal. There were no erosions or ulcerations seen and the patient tolerated the procedure well. IMPRESSI 1. Very small esophageal varices. 2. Evidence of gastric bypass surgery with normal Donell-en-Y anastomosis. RECOMENDATIONS: The findings of this examination were discussed with the patient as well as a family. She was advised to have a repeat upper endoscopy in 2-3 years as a part of follow-up of esophageal varices.
[2023-06-27 11:37] VITALS: BP 107/67; PULSE 69; RESP 16
== END 2023-06-27 11:36 | disposition home or self-care (01) ==
LOC: ORWHC2ENDO 09:21
PROVIDERS: ATTEND Internal Medicine Gastroenterology
DX: K70.30 Alcoholic cirrhosis of liver without ascites (principal); I20.9 Angina pectoris, unspecified; I63.9 Cerebral infarction, unspecified; M79.7 Fibromyalgia; K21.9 Gastro-esophageal reflux disease without esophagitis; Z79.1 Long term (current) use of non-steroidal anti-inflammatories (NSAID); Z88.6 Allergy status to analgesic agent; Z91.041 Radiographic dye allergy status; Z79.899 Other long term (current) drug therapy
CPT/HCPCS: 43235; J2704; J2001

== ENCOUNTER 2023-10-02 05:44 | Day surgery (SDC) | payer MEDICARE ==
[2023-09-28 13:52] VITALS: BMI 27.6
[~2023-10-02 05:44] MED LIST changes: +ALPRAZolam 0.25 MG TAB PO PRN; +ALPRAZolam 0.5 MG TAB PO PRN; -LACTATED RINGERS 1,000 ML IV SCH; -LIDOCAINE 1% (10MG/ML) FOR IV START INTRADERMA PRN; +NITROGLYCERIN SL TABS 0.4 MG TAB SUBLINGUAL PRN; +SODIUM CHLORIDE 0.9% 1,000 ML in EMPTY BAG 1 BAG IV SCH
[2023-10-02 06:26] VITALS: RESP 18; TEMP 97.9
[2023-10-02 06:26] LABS: Basophils % (A) 1 %; Eosinophils # (A) 0.3 k/uL (0-0.7); Eosinophils % (A) 5 %; HCT 34.6 % (34.0-46.0); HGB 11.3 gm/dL (11.4-16.0); Hypochromasia Slight; Lymphocytes # (A) 1.9 k/uL (1.0-4.8); Lymphocytes % (A) 35 %; MCH 27.4 pg (25.0-35.0); MCHC 32.7 g/dL (31.0-37.0); MCV 83.7 fL (80.0-100.0); Mean Platelet Volume 10.7; Monocytes # (A) 0.4 k/uL (0-1.0); Monocytes % (A) 7 %; Neutrophils # (A) 2.6 k/uL (1.3-7.7); Neutrophils % (A) 49 %; Platelet Count 176 k/uL (150-450); RBC 4.13 m/uL (3.80-5.40); WBC 5.4 k/uL (3.8-10.6)
[2023-10-02 06:53] LABS: African American GFR (CKD) >90 (>60 ml/min/1.73 sqM); Anion Gap 4 mmol/L; Blood Urea Nitrogen 17 mg/dL (7-17); Calcium 8.5 mg/dL (8.4-10.2); Carbon Dioxide 25 mmol/L (22-30); Chloride 109 mmol/L (98-107); Glucose 91 mg/dL (74-99); Non-African American GFR(CKD) >90 (>60 ml/min/1.73 sqM); Potassium 4.2 mmol/L (3.5-5.1); Sodium 138 mmol/L (137-145)
[2023-10-02] MEDS ORDERED: ASPIRIN 325 MG TAB PO ONE (07:00)
[2023-10-02] MEDS ORDERED: MIDAZOLAM 2 MG/2 ML VIAL IVP ONE ×2 (08:09)
[2023-10-02] MEDS ORDERED: LIDOCAINE 1% INJ 10MG/ML (20 ML MDV) SQ ONE (08:09)
[2023-10-02] MEDS ORDERED: VERAPAMIL SYRINGE (5 MG/10 ML) INTRAARTER ONE (08:11)
[2023-10-02] MEDS ORDERED: HEPARIN SODIUM 1,000 UN/ML (10ML VL) IVP ONE (08:11)
[2023-10-02] MEDS ORDERED: IOPAMIDOL-370 100ML BTL INJ ONE (08:18)
[2023-10-02] MEDS ORDERED: RX INFO: IV CONTRAST WAS GIVEN 1 EACH MISC MISCELLANE PRN (08:26)
--- NOTE | 2023-10-02 08:28 | P.PCN ---
Date of Procedure: 10/02/23 Operative Findings: CARDIAC CATHETERIZATION PERFORMING PHYSICIAN: Ramin Sweet MD, RPVI PROCEDURE PERFORMED: 1. Selective right and left coronary angiogram 2. Left heart catheterization 3. Ultrasound-guided access of the right radial artery INDICATION: Preoperative cardiac assessment before noncardiac surgery on this 68-year-old female patient who underwent myocardial perfusion imaging stress test came in to be abnormal COMPLICATION: None APPROACH: Right radial artery LEVEL OF SEDATION: Moderate with a sedation length of [] minutes PROCEDURE DESCRIPTION: After obtaining an informed consent, the patient was brought to cardiac medical lab technologist. Local anesthesia was performed using lidocaine subcutaneously. The right radial artery was cannulated using Seldinger technique, the guidewire passed easily, following that we advanced a 5-Burkinan sheath dilator assembly, the wire and dilator were removed and sheath was flushed. Following that, 2 mg of verapamil along with 3000 unit heparin were given. Selective right and left coronary angiogram using a 6-Burkinan JR4 and JL 3.5 catheters. Following that we did left heart catheterization using the JR4 catheter. The procedure was completed there was no complication. SELECTIVE CORONARY ANGIOGRAM: The right coronary artery: Large caliber vessel and a dominant vessel and appeared to be angiographically normal Left main: Is angiographically normal The left circumflex: Large caliber vessel nondominant vessel. Its normal. Size into a large OM branch which appears to be normal The left anterior descending artery: Large-caliber vessel. Its normal. Stress into a large diagonal branch which seems to be normal HEMODYNAMICS: The LVEDP was 10 mmHg with no significant gradient across aortic valve CONCLUSION: 1. Normal coronary angiogram 2. Normal left-sided filling pressure POSTPROCEDURE MANAGEMENT: Medical treatment
[2023-10-02] MEDS ORDERED: SODIUM CHLORIDE 0.9% 1,000 ML IV SCH (08:30)
[2023-10-02 11:48] VITALS: BP 118/64; PULSE 62
== END 2023-10-02 12:00 | disposition home or self-care (01) ==
LOC: CATHCVL 05:44
PROVIDERS: ATTEND Internal Medicine Interventional Cardiology
DX: I44.7 Left bundle-branch block, unspecified (principal); I38 Endocarditis, valve unspecified; K70.31 Alcoholic cirrhosis of liver with ascites; I10 Essential (primary) hypertension; F17.210 Nicotine dependence, cigarettes, uncomplicated; Z79.899 Other long term (current) drug therapy
CPT/HCPCS: 93458; 76937; 80048; 85025; C1769 ×2; C1894; J2250; J2001; J1644; Q9967

== ENCOUNTER 2023-10-04 10:59 | Inpatient (IN) | payer MEDICARE ==
[2023-09-28 14:15] VITALS: BMI 27.6
[~2023-10-04 10:59] MED LIST changes: -ALPRAZolam 0.25 MG TAB PO PRN; -ALPRAZolam 0.5 MG TAB PO PRN; +HEPARIN SODIUM 1,000 UN/ML (10ML VL) ONE; -NITROGLYCERIN SL TABS 0.4 MG TAB SUBLINGUAL PRN; +ONDANSETRON 4 MG/2 ML VIAL ONE; -SODIUM CHLORIDE 0.9% 1,000 ML in EMPTY BAG 1 BAG IV SCH
[2023-10-04] MEDS: LACTATED RINGERS 1,000 ML IV SCH (11:55)
[2023-10-04] MEDS: ONDANSETRON 4 MG/2 ML VIAL IVP ONE (11:56)
[2023-10-04] MEDS: DEXAMETHASONE SOD PHOSPHATE 4 MG/ML 1 ML VIAL IV ONE (11:56)
[2023-10-04] MEDS ORDERED: NEOSTIGMINE 1 MG/ML 10 ML VIAL ONE (13:45)
[2023-10-04] MEDS ORDERED: PHENYLEPHRINE 10 MG/ML VIAL ONE (13:45)
[2023-10-04] MEDS ORDERED: MIDAZOLAM 2 MG/2 ML VIAL ONE (13:45)
[2023-10-04] MEDS ORDERED: ROCURONIUM 10 MG/ML (5 ML VIAL) IV ONE (13:45)
[2023-10-04] MEDS ORDERED: fentaNYL (PF) 50 MCG/ML 2 ML AMP ONE (13:45)
[2023-10-04] MEDS ORDERED: SUCCINYLCHOLINE CHLORIDE 200 MG/10 ML VIAL IV ONE (13:45)
[2023-10-04] MEDS ORDERED: ePHEDrine 50 MG/ML 1 ML VIAL ONE (13:45)
[2023-10-04] MEDS ORDERED: PROPOFOL 10 MG/ML 20 ML VIAL IV ONE (13:45)
[2023-10-04] MEDS ORDERED: GLYCOPYRROLATE 0.2 MG/ML 2 ML VIAL ONE (13:45)
[2023-10-04] MEDS ORDERED: HYDROmorphone (PF) 1 MG/ML ONE (13:45)
[2023-10-04] MEDS: ceFAZolin 1,000 MG in SODIUM CHLORIDE 0.9% IRRIGATIO 1,000 ML IRRIGATION PRN (13:51)
[2023-10-04] MEDS: LACTATED RINGERS 1,000 ML IV ONE ×4 (14:15→20:06)
[2023-10-04] MEDS: THROMBIN (BOVINE) 5,000 UNIT VIAL TOPICAL ONE (14:33)
[2023-10-04] MEDS: BUPIVACAINE (PF) 0.5% 30 ML VIAL SQ ONE (14:33)
[2023-10-04] MEDS: GELATIN SPONGE,ABSORB (SMALL) 1 EACH SPONGE TOPICAL ONE (14:33)
[2023-10-04] MEDS: LIDOCAINE 2%-EPI 1:100,000 20 ML VIAL SQ ONE (14:33)
[2023-10-04] MEDS ORDERED: MAGNESIUM HYDROXIDE 2,400 MG/30 ML CUP PO PRN (17:50)
[2023-10-04] MEDS ORDERED: HYDROmorphone 1 MG/ML 1 ML SYRINGE IVP PRN (17:50)
[2023-10-04] MEDS ORDERED: SENNOSIDES 8.6 MG TAB PO PRN (17:52)
[2023-10-04] MEDS ORDERED: DOCUSATE 100 MG CAP PO PRN (17:52)
--- NOTE | 2023-10-04 18:05 | P.OP ---
Date of Procedure: 10/04/23 Preoperative Diagnosis: Recurrent stenosis L5-S1, spinal stenosis L4-5 L5-S1, lower extreme radiculopathy, lower extremity weakness, low back pain, degenerative disc disease, degenerative scoliosis Postoperative Diagnosis: Same Anesthesia: GETA Pathology: none sent Condition: stable Disposition: PACU Description of Procedure: DESCRIPTION OF PROCEDURE(S): BRIEF OPERATIVE NOTE Preoperative Diagnosis: Recurrent stenosis L5-S1, spinal stenosis L4-5 L5-S1, lower extreme radiculopathy, lower extremity weakness, low back pain, degenerative disc disease, degenerative scoliosis Postoperative Diagnosis: Same Procedure: Laminectomy and decompression L4-5 and L5-S1 Computer CT navigation aided Minimally invasive Posterior lateral decompression and facet fusion Minimally invasive Transforaminal lumbar interbody fusion for a 360 fusion Discectomy for decompression L4-5 and L5-S1 Placement of interbody graft Use of computer navigation for fusion and placement of pedicle screws L4-5 and S1 Local autogenous bone grafting Aspiration of bone marrow from the vertebral body pedicle L4 on the right Use of bone graft extenders Surgeon: Dr. Huynh Paring Machine Operator: Naveed MAXWELL who is present throughout the entire the case persistence during positioning, dissection, exposure, visualization, and all crucial elements of the case as well as closure. Anesthesia: General anesthesia per Dr. Ruiz Estimated blood loss: Approximately 250 mL Complications: None apparent Components implanted: K2M minimally invasive Hubbard pedicle screw system withscrews measuring 6.5 mm in diameter to rods one [place] interbody cage and 1 peek interbody cage with 10 mL of osteo amp bio4 bone graft substitute and 30 mL of the BX bone fibers to supplement the local autogenous bone graft and bone marrow aspirate Disposition: To recovery room in good stable condition. OPERATIVE INDICATIONS The patient has had severe issues at their lower extremity in her lower back over the past several years with significant worsening over the past several months. Over the past few months the patient had pain at their back and their lower extremities. The patient is having severe radicular symptoms at their lower extremity with weakness. Her primary symptoms were anterior left lower extremity and her left side of her lower back. She was found to have significant changes at L4-5 and L5-S1 with stenosis and new with evidence of disc protrusion with herniation L4-5 and L5-S1 with evidence of asymmetric disc degeneration and degenerative scoliosis. The patient is having significant pain in their back. They are unable to obtain any comfort. We did aggressive conservative treatment with medications therapy and interventional pain management however thery were not having any relief. The patient also showed evidence of a listhesis with some dynamic instability. The patient has been through conservative treatment. We discussed various treatment options including surgery, and the patient wishes to proceed with surgery We discussed the risk, patient's alternatives and benefits of surgery including but not limited to, risk of bleeding risk of infection, risk of need for further surgery, risk of decreased, loss of motion, muscle function, malunion nonunion, hardware failure, nerve damage, paralysis, heart attack, blindness and . They understood issues with the current pandemic and the possibility of exposu re. OPERATIVE SUMMARY After discussing all the risks, patient alternatives and benefits at length, the patient elected to proceed with surgical intervention, signed informed consent, and presented for their procedure. The patient was seen and examined in the preoperative holding area and the surgical site was marked. The patient was given antibiotics and brought to the operating room. The patient was sedated and intubated by anesthesia in standard fashion. The patient was positioned on to the operating room table in a prone position on the appropriate frame which was well-padded and well molded. We were careful to pad any bony prominences and pressure points. We were careful to maintain the patient's cervical spine and good neutral alignment and position throughout. The patient was prepped and draped in a normal standard fashion. An appropriate timeout and keystone protocol performed. We were able to proceed with the surgery. The local wound area was infiltrated with local anesthetic. Over the right iliac crest I was able to make small stab incisions and establish a guidepin screw fixation to the iliac crest 2. I was able place the computer referencing device over the guidepins to establish an appropriate reference point for the Ziem CT navigation. We then were able to place patient in an appropriate drape and do a navigation spin for visualization and 3-D recon struction of the lumbar spine. I was able utilize C-arm guidance and navigation to establish appropriate position over the pedicles bilaterally at the appropriate levels . With the appropriate levels at L4-L5 and S1 confirmed was able to make small incisions over the appropriate pedicle sites bilaterally. Utilizing the computer navigation device I was able to establish bony landmarks at the right iliac crest for a bony reference point for the navigation device. I was able to establish a Jamshidi needle over the lateral aspect of the pedicle and advanced the trocar into the pedicle being careful not to breech superiorly inferiorly medially or laterally using computer navigation device. Position was confirmed regularly with AP and lateral images on C-arm and with the computer navigation device at the appropriate levels bilaterally. I was able to establish the trocar into the pedicle appropriately into the posterior aspect of the vertebral body bilaterally at the appropriate levels at L4-L5 and S1. This was done at each of the pedicle positions and each of the vertebrae. At the superior vertebrae at L4 on the right I was able to take approximately 25 mL of bone aspiration for use later in the case to supplement the allograft and autograft bone. I was able place the guidewire into the trocar and into the vertebral body appropriately under C-arm guidance. Dissection was taken down over the wire to the appropriate starting position for the screw placed. The appropriate length screw was chosen, threaded over the guidewire and screwed appropriately into the pedicle and vertebral body under C-arm guidance in excellent alignment and position with good bony purchase. This is done at each of the screw sites at the appropriate levels at L4-L5 and S1. With the screws intact I extended the incision to connect the screw hole sites on the most symptomatic side on the left. I dissected down to establish access over the pars and lamina to the base of the spinous process. I was able to expose the facet joint. The capsule the facet was taken down and showed some facet arthrosis at the joint. I was able to use a combination of curettes and Kerrison rongeurs and a high-speed drill to take down the facet joint and do a facetectomy. I was able get excellent foraminal decompression and central decompression with undermining across midline to perform a laminectomy centrally and contralaterally. As able get good central decompression. There is some cystic change particular at L5-S1 around the facet joint and some scarring and adherence around the nerve root. The nerve root head adhesions and was difficult to mobilize but I was able to get some increased mobility along the area. And the ligamentum flavum was taken down to further decompress centrally and at bilateral neural foramen. I was able to expose the disc space and visualize the traversing nerve root. Note was made of some disc protrusion and disc herniation that was abutting the traversing nerve root at the level causing further compression of the nerve root. I was able to establish a annulotomy at the appropriate level protecting soft tissue and neural structures. Note was made of some disc desiccation at the disc. I performed a complete discectomy with accommodation of curettes and rasps and scrapers. I was able get good endplate preparation at the disc space. I sized for the appropriate size interbody spacer protecting the soft tissue and neural structures. The wound was copiously irrigated and suctioned dry. There is no evidence of any dural tear or leak. I was able to pack the disc space with local autogenous bone graft as well as a small amount of bone graft which was also placed into the interbody cage itself. Protecting the soft tissue structures and neural structures I was able place the interbody cage in good alignment and good position with good fit and fill at the interbody space. Position was confirmed with C-arm guidance. Good hemostasis maintained. There is no evidence of any dural tear or leak. The wound was irrigated and suctioned dry. With the hardware intact, intraoperative C-arm imaging was again taken which showed good alignment and position of the hardware at the appropriate levels at L4-L5 and L5-S1. We were then able to measure, contour and place the rods and appropriate hardware bilaterally. I was able to place capcrews, tighten them down, and torque them with the torque screwdriver appropriately. With this intact I was able to place the local autogenous bone graft with additional bone graft enhancer as necessary into the posterior lateral gutters over the decorticated transverse processes and facet joints on the contralateral side. The remainder of the bone graft was placed over the facet joint on the contralateral side after taking down the facet joint capsule. With the bone graft intact, a stable construct, and good decompression at the appropriate levels, we were able to proceed with closure. Good hemostasis was maintained. There is no evidence of dural tear or leak. The fascia was closed for a watertight closure. he subcuticular tissue was closed with absorbable suture. The wound was cleaned and dried and dressed with the appropriate dressing. The drapes were broken down. The patient was gently rolled back onto their hospital bed being careful to maintain their cervical spine and good neutral alignment and position. They were woken up by anesthesia, extubated, and brought to the recovery room in good stable condition. The patient will be admitted to the hospital for appropriate postoperative care, medical management and monitoring. We will continue to follow them closely about the postoperative course.
[2023-10-04] MEDS: HYDROmorphone 0.5 MG/0.5 ML SYRINGE IVP PRN ×2 (18:10→23:31)
--- NOTE | 2023-10-04 19:29 | FL ---
EXAMINATION TYPE: FL guidance operating room, XR lumbar spine 2 or 3V Intraoperative/procedural fluor oscopic services were provided. Total fluoroscopy time is 21 seconds with a total of 1 submitted imag es to PACS. Please see the operative/procedural note for further details. DAP: [id number] mGym2
[2023-10-04] MEDS: SODIUM CHLORIDE 0.9% 1,000 ML IV ONE (20:06)
[2023-10-04] MEDS: traMADol 50 MG TAB PO SCH (21:22)
[2023-10-04] MEDS: POTASSIUM CHLORIDE ER 10 MEQ TAB.ER.PRT PO SCH (21:22)
[2023-10-04] MEDS: SODIUM CHLORIDE 0.9% 1,000 ML IV SCH (21:23)
[2023-10-05] MEDS: HYDROcodone/APAP 5-325MG 1 EACH TAB PO PRN (01:28)
[2023-10-05] MEDS: CYCLOBENZAPRINE 10 MG TAB PO PRN (01:29)
[2023-10-05] MEDS: BENZOCAINE/MENTHOL LOZENG 1 EACH LOZENGE MUCOUS MEM PRN (01:42)
[2023-10-05] MEDS: PANTOPRAZOLE 40 MG TABLET PO SCH (06:08)
[2023-10-05] MEDS: SENNOSIDES-DOCUSATE SODIUM 1 EACH TAB PO SCH (08:19)
[2023-10-05] MEDS: CYANOCOBALAMIN 500 MCG TAB PO SCH (08:19)
[2023-10-05] MEDS: FOLIC ACID 1 MG TAB PO SCH (08:19)
[2023-10-05] MEDS: MIDODRINE 5 MG TAB PO PRN (08:19)
[2023-10-05] MEDS: LEVOTHYROXINE 50 MCG TAB PO SCH (08:19)
[2023-10-05] MEDS: MULTIVITAMINS, THERA 1 EACH TAB PO SCH (08:19)
[2023-10-05] MEDS: FERROUS SULFATE 325 MG TAB PO SCH (08:19)
[2023-10-05] MEDS: SPIRONOLACTONE 25 MG TAB PO SCH (08:19)
[2023-10-05] MEDS: FUROSEMIDE 80 MG TAB PO SCH (08:20)
--- NOTE | 2023-10-05 09:22 | P.PN ---
Progress Note - Text Progress Note Date: 10/05/23 Postoperative day #1 Patient is seen and examined today at bedside. The patient has some pain around the surgical site as expected. Her blood pressure has been in the 90s and they have held the pain medicine this morning. The patient says that her legs are doing well. Her primary pain is at her lower back around the incision and surgical site. Denies any nausea or vomiting Physical Exam Afebrile with stable vital signs Abdomen is soft nontender. Chest has good excursion deep and space expiration The incision site is clean dry and intact. No erythema there is no purulence. Extremities have not had neurologic change from prior to surgery. Sustained dorsiflexion plantarflexion EHL intact at the bilateral feet Calves and thighs were soft nontender without evidence of DVT. Assessment/Plan Postoperative day #1 status post minimally invasive decompression and fusion L4- 5 L5-S1 for disc herniation with stenosis and lower extremity radiculopathy Patient is progressing as expected from the surgery. So far has been difficult to control her pain as her blood pressure has been somewhat low but she appears stable without any difficulty and hopefully will be able to control her pain adequately with medication We will continue to increase the patient's mobilization with therapy. Plan to discontinue her Rubin if she is able to mobilize better. She will need discharge planning home versus rehab in the next couple of days We will continue pain control with oral or IV medications. We'll continue to follow patient closely.
--- NOTE | 2023-10-05 10:58 | P.ANPRN ---
Procedure Note - Anesthesia - Invasive Line Left Arterial Line Time Out Performed: Yes Date of Procedure: 10/04/23 Time of Procedure: 11:44 Location of Patient: PreOp Preparation: Sterile Prep, Sterile Dressing Arterial Line Location: Radial Ultrasound Used: No Narrative: Central line placement per sterile protocol utilized.
[2023-10-05 11:06] LABS: Basophils # (A) 0.03 X 10*3/uL (0.00-0.10); Basophils % (A) 0.5 %; Eosinophils # (A) 0.09 X 10*3/uL (0.04-0.35); Eosinophils % (A) 1.6 %; HCT 26.5 % (37.2-46.3); HGB 8.1 g/dL (12.0-15.0); Lymphocytes # (A) 1.26 X 10*3/uL (0.90-5.00); Lymphocytes % (A) 22.5 %; MCH 25.6 pg (27.0-32.0); MCHC 30.6 g/dL (32.0-37.0); MCV 83.9 FL (80.0-97.0); Mean Platelet Volume 12.2 FL (9.5-12.2); Monocytes # (A) 0.64 X 10*3/uL (0.20-1.00); Monocytes % (A) 11.4 %; NRBC Per 100 WBC 0 X 10*3/uL (0.00-0.01); Neutrophils # (A) 3.57 X 10*3/uL (1.80-7.70); Neutrophils % (A) 63.6 %; Platelet Count 125 X 10*3/uL (140-440); RBC 3.16 X 10*6/uL (4.10-5.20); RDW 15.5 % (11.5-14.5); WBC 5.61 X 10*3/uL (4.50-10.00)
[2023-10-05 11:40] LABS: Blood Urea Nitrogen 14.7 mg/dL (9.0-27.0); Calcium 7.9 mg/dL (8.7-10.3); Carbon Dioxide 23.4 mmol/L (21.6-31.8); Chloride 105 mmol/L (96-109); Glucose 128 mg/dL (70-110); Potassium 4.4 mmol/L (3.5-5.5); Sodium 137 mmol/L (135-145)
--- NOTE | 2023-10-05 11:54 | P.CONS ---
History of Present Illness - Reason for Consult Consult date: 10/05/23 Medical management gastroesophageal reflux disease, hypothyroidism Requesting physician: Elian Huynh - Chief Complaint Spinal stenosis, radiculopathy, lower extremity weakness - History of Present Illness This is a 68-year-old female with past medical history significant for alcoholic cirrhosis, ascites-reports last paracentesis 2 years ago, gastroesophageal reflux disease, hypothyroidism and multiple other medical issues status post laminectomy and decompression L4-5 and L5-S1 with discectomy and aspiration of bone marrow from vertebral body pedicle L4 on the right, secondary to recurrent stenosis L5-S1, spinal stenosis L4-5, L5-S1, lower extremity radiculopathy, lower extremity weakness, low back pain, degenerative disc disease, degenerative scoliosis. Tolerated procedure well. Positive pain, currently rating it at a 8 or 9. Blood pressures soft, maintained on gentle IV fluid hydration. Maintaining O2 sats in the high 90s on room air. Afebrile. Labs pending. Denies nausea vomiting or abdominal pain. Reports she stood at the bedside with walker earlier today, with minimal lightheadedness. Review of Systems ROS Statement: Those systems with pertinent positive or pertinent negative responses have been documented in the HPI. ROS Other: All systems not noted in ROS Statement are negative. Past Medical History Past Medical History: CVA/TIA, Fibromyalgia, GERD/Reflux, Osteoarthritis (OA), Thyroid Disorder Additional Past Medical History / Comment(s): "Blocked artery, had heart cath Monday." Abdominal hernia. Liver cirrhosis/past etoh abuse/ascities with paracentesis every 6 weeks, fluid retention from waist down, last parcentesis 2019. Hx TIA X3. Hypotension, past dumping syndrome after bariatric surgery, stress urine incontinence, hx UTI, hemorrhoids. Hx sepsis X2, one after gallbladder removed, gallbladder was attached to liver, liver was cut, second time was after bowel resection. History of Any Multi-Drug Resistant Organisms: None Reported Year Discovered:: 01/06/22 MDRO Source:: Abd incision Past Surgical History: Bariatric Surgery, Bowel Resection, Cholecystectomy, Hernia Repair, Hysterectomy, Orthopedic Surgery, Tubal Ligation Additional Past Surgical History / Comment(s): GASTRIC BYPASS, PAIN CLINIC PROCEDURE, C3-C7 fusions, colonoscopy, bowel obtruction surgery 12/2021. Past Anesthesia/Blood Transfusion Reactions: No Reported Reaction Additional Past Anesthesia/Blood Transfusion Reaction / Comm: REQUIRE ABOVE AVERAGE LIDOCAINE DOSE - RESISTANT TO LOCAL ANESTHESIA. Past Psychological History: No Psychological Hx Reported Additional Psychological History / Comment(s): Pt resides alone. She uses a walker to ambulate. She limits her driving. She has a equine intern every 2 weeks. Her daughter in law is helpful but works alot of hours. Smoking Status: Former smoker Past Alcohol Use History: None Reported Additional Past Alcohol Use History / Comment(s): Started smoking in 1965 and quit in 1980. Used to drink red wine heavily but has not had any alcohol since 03/14/21. Past Drug Use History: None Reported - Past Family History Brother(s) Family Medical History: Cancer Additional Family Medical History / Comment(s): Lung cancer. Father Family Medical History: Diabetes Mellitus, Myocardial Infarction ([place]) Additional Family Medical History / Comment(s): Father is . Mother Family Medical History: Cancer, Myocardial Infarction ([place]) Additional Family Medical History / Comment(s): Breast cancer. Medications and Allergies Home Medications Medication Instructions Recorded Confirmed Type Multivitamin [Multivitamins Adult 1 tab PO QAM 03/15/21 10/04/23 History Gummies] rOPINIRole HCL [Requip] 0.5 mg PO HS PRN 06/19/21 10/04/23 History Pantoprazole [Protonix] 40 mg PO AC-BRKFST tab 06/24/21 10/04/23 Rx Folic Acid 0.4 mg PO QAM 12/29/21 10/04/23 History Levothyroxine Sodium [Synthroid] 50 mcg PO AC-BRKFST 12/29/21 10/04/23 History Midodrine [ProAmatine] 5 mg PO TID PRN 12/29/21 10/04/23 History Potassium Chloride ER [K-Dur 20] 10 meq PO TID 12/29/21 10/04/23 History Spironolactone [Aldactone] 100 mg PO QAM 08/08/22 10/02/23 History Docusate [Colace] 100 mg PO QAM PRN 12/21/22 10/04/23 History Ferrous Sulfate [Iron] 325 mg PO QAM 12/21/22 10/04/23 History Furosemide [Lasix] 80 mg PO QAM 12/21/22 10/04/23 History Sennosides [Senokot] 8.6 mg PO QAM PRN 12/21/22 10/04/23 History Cyanocobalamin (Vitamin B-12) 2 tab PO DAILY 06/22/23 10/04/23 History [Vitamin B-12] traMADol HCl [Ultram] 50 mg PO QID 06/22/23 10/04/23 History Ibuprofen 800 mg PO Q8H PRN 09/28/23 10/04/23 History Pregabalin [Lyrica] 75 mg PO BID PRN 09/28/23 10/04/23 History Allergies Allergy/AdvReac Type Severity Reaction Status Date / Time acetaminophen AdvReac Unknown Verified 10/04/23 11:19 Physical Exam Vitals: Vital Signs Temp Pulse Resp BP BP BP Pulse Ox 10/05/23 01:42 98.5 F 70 16 103/54 97 10/04/23 23:10 98.4 F 84 17 92/57 94 L 10/04/23 20:00 75 16 106/58 95 10/04/23 19:45 79 16 103/58 96 10/04/23 19:30 74 16 98/53 98 10/04/23 19:16 76 16 102/56 99 10/04/23 18:56 74 16 97/59 98 10/04/23 18:41 75 16 90/51 97 10/04/23 18:26 74 17 90/51 94/56 98 10/04/23 18:11 79 16 99/56 100/59 97 10/04/23 17:56 97 F L 78 14 137/67 98 10/04/23 11:28 97.4 F L 63 14 100/65 98 Intake and Output 10/04/23 10/05/23 10/05/23 22:59 06:59 14:59 Intake Total 600 Output Total 1000 650 Balance -400 -650 Intake: IV 600 Output: Urine 750 650 Estimated Blood Loss 250 Other: Voiding Method Indwelling Catheter Weight 73.5 kg - Exam Gen: sitting up in bed, no acute distress HEENT: normocephalic, atraumatic,MMM Neck: supple, no JVD CV: RRR, no murmur Lungs: Normal effort,clear thoughout Abd; soft, nondistended, status post surgery EXTR: No edema, no calf tenderness, positive DP pulses Neuro: alert and oriented x3, no focal deficits Results CBC & Chem 7: 10/05/23 06:05 10/05/23 06:05 Assessment and Plan Assessment: Recurrent stenosis L5-S1, spinal stenosis L4-5, L5-S1, lower extremity rad iculopathy, lower extremity weakness, status post laminectomy and decompression L4-5 and L5-S1 with discectomy and aspiration of bone marrow from vertebral body pedicle L4 on the right History of Alcoholic cirrhosis, ascites, paracentesis. Last paracentesis 2 years ago History of Hepatorenal syndrome History of Incarcerated umbilical hernia repair with enterococcus VRE. Plan: Continue on current medication regimen ,monitoring and symptomatic treatment. Labs pending .pain management;-will change from [place] to oxycodone and review of patient's history of cirrhosis. Gentle IV fluid hydration, oral Lasix discontinued. DVT prophylaxis as per primary. Aggressive pulmonary toileting with incentive spirometer reinforced. Thank you for the consult. The impression and plan of care has been dictated as directed. : I performed a history and examination of this patient, discussed the same with the dictator. I agree with the dictator's note ,documented as a scribe. Any additional findings or plans will be noted.
[2023-10-05] MEDS: ASPIRIN 81 MG ONE (17:47)
--- NOTE | 2023-10-05 19:34 | P.CONS ---
History of Present Illness - Reason for Consult Consult date: 10/05/23 rehab recommendations - Chief Complaint debility, back surgery - History of Present Illness Ms Shyann Wynn is a 68 y/o right handed, female who lives alone in a condo with a basement, 3 SAV with HR. Patient does not need to access the basement at this time. She was independent prior, does have a cane and walker but was not using them. She states she is normally pretty active but her back pain has been inhibiting her. She limits her driving. She has a slot machine mechanic every 2 weeks. Her daughter in law is helpful but works, 2 sons live local. Patient presented to the hospital on 10/04/23 for a planned elective back surgery related to L4-S1 spinal stenosis and radiculopathy. She underwent L4-S1 laminectomy and decompression with fusion with Dr Huynh. No intra-operative or post operative complications. She is having some difficulty with pain control. She also reports having some problems with low blood pressure, now getting midodrine. She denies CP, SOB. She has not had a BM since , reports she has not been eating much, took Senna today. She has a resendiz catheter for urinati on. She has some numbness in the left 2-4 toes which she had prior to the surgery. PM&R consulted for rehab recommendations. Patient needing min-max assist with transfers, max assist with bed mobility, pain limiting. Review of Systems reviewed, negative unless stated above Past Medical History Past Medical History: CVA/TIA, Fibromyalgia, GERD/Reflux, Osteoarthritis (OA), Thyroid Disorder Additional Past Medical History / Comment(s): "Blocked artery, had heart cath Monday." Abdominal hernia. Liver cirrhosis/past etoh abuse/ascities with paracentesis every 6 weeks, fluid retention from waist down, last parcentesis 2019. Hx TIA X3. Hypotension, past dumping syndrome after bariatric surgery, stress urine incontinence, hx UTI, hemorrhoids. Hx sepsis X2, one after gallbladder removed, gallbladder was attached to liver, liver was cut, second time was after bowel resection. History of Any Multi-Drug Resistant Organisms: None Reported Year Discovered:: 01/06/22 MDRO Source:: Abd incision Past Surgical History: Bariatric Surgery, Bowel Resection, Cholecystectomy, Hernia Repair, Hysterectomy, Orthopedic Surgery, Tubal Ligation Additional Past Surgical History / Comment(s): GASTRIC BYPASS, PAIN CLINIC PROCEDURE, C3-C7 fusions, colonoscopy, bowel obtruction surgery 12/2021. Past Anesthesia/Blood Transfusion Reactions: No Reported Reaction Additional Past Anesthesia/Blood Transfusion Reaction / Comm: REQUIRE ABOVE AVERAGE LIDOCAINE DOSE - RESISTANT TO LOCAL ANESTHESIA. Past Psychological History: No Psychological Hx Reported Additional Psychological History / Comment(s): Pt resides alone. She uses a walker to ambulate. She limits her driving. She has a slot machine mechanic every 2 weeks. Her daughter in law is helpful but works alot of hours. Smoking Status: Former smoker Past Alcohol Use History: None Reported Additional Past Alcohol Use History / Comment(s): Started smoking in 1965 and quit in 1980. Used to drink red wine heavily but has not had any alcohol since 03/14/21. Past Drug Use History: None Reported - Past Family History Brother(s) Family Medical History: Cancer Additional Family Medical History / Comment(s): Lung cancer. Father Family Medical History: Diabetes Mellitus, Myocardial Infarction ([place]) Additional Family Medical History / Comment(s): Father is . Mother Family Medical History: Cancer, Myocardial Infarction ([place]) Additional Family Medical History / Comment(s): Breast cancer. Medications and Allergies Home Medications Medication Instructions Recorded Confirmed Type Multivitamin [Multivitamins Adult 1 tab PO QAM 03/15/21 10/04/23 History Gummies] rOPINIRole HCL [Requip] 0.5 mg PO HS PRN 06/19/21 10/04/23 History Pantoprazole [Protonix] 40 mg PO AC-BRKFST tab 06/24/21 10/04/23 Rx Folic Acid 0.4 mg PO QAM 12/29/21 10/04/23 History Levothyroxine Sodium [Synthroid] 50 mcg PO AC-BRKFST 12/29/21 10/04/23 History Midodrine [ProAmatine] 5 mg PO TID PRN 12/29/21 10/04/23 History Potassium Chloride ER [K-Dur 20] 10 meq PO TID 12/29/21 10/04/23 History Spironolactone [Aldactone] 100 mg PO QAM 08/08/22 10/02/23 History Docusate [Colace] 100 mg PO QAM PRN 12/21/22 10/04/23 History Ferrous Sulfate [Iron] 325 mg PO QAM 12/21/22 10/04/23 History Furosemide [Lasix] 80 mg PO QAM 12/21/22 10/04/23 History Sennosides [Senokot] 8.6 mg PO QAM PRN 12/21/22 10/04/23 History Cyanocobalamin (Vitamin B-12) 2 tab PO DAILY 06/22/23 10/04/23 History [Vitamin B-12] traMADol HCl [Ultram] 50 mg PO QID 06/22/23 10/04/23 History Ibuprofen 800 mg PO Q8H PRN 09/28/23 10/04/23 History Pregabalin [Lyrica] 75 mg PO BID PRN 09/28/23 10/04/23 History Allergies Allergy/AdvReac Type Severity Reaction Status Date / Time acetaminophen AdvReac Unknown Verified 10/04/23 11:19 Physical Exam Vitals: Vital Signs Temp Pulse Resp BP BP BP Pulse Ox 10/05/23 13:55 93/58 10/05/23 08:00 98.0 F 88 14 90/52 90/52 97 10/05/23 01:42 98.5 F 70 16 103/54 97 10/04/23 23:10 98.4 F 84 17 92/57 94 L 10/04/23 20:00 75 16 106/58 95 10/04/23 19:45 79 16 103/58 96 10/04/23 19:30 74 16 98/53 98 10/04/23 19:16 76 16 102/56 99 10/04/23 18:56 74 16 97/59 98 10/04/23 18:41 75 16 90/51 97 10/04/23 18:26 74 17 90/51 94/56 98 10/04/23 18:11 79 16 99/56 100/59 97 10/04/23 17:56 97 F L 78 14 137/67 98 Intake and Output 10/05/23 10/05/23 10/05/23 06:59 14:59 22:59 Intake Total 120 Output Total 650 Balance -650 120 Intake: Oral 120 Output: Urine 650 Other: Voiding Method Indwelling Catheter General: WDWN, female laying in bed, NAD Head: Normocephalic, atraumatic. Eyes: Symmetric Ears: Symmetric. Hearing within normal limits. Mouth: Clear. Neck: Supple. Cardiac: clinical research monitor on, Calves supple, non tender, no LE edema, SCDs on Lungs: Breathing comfortably on RA. Chest symmetric. Abdomen: Soft, nontender. Extremities: Arthritic changes consistent with age. Neurological: Alert and oriented x 4. Speech is clear and fluent without paraphasic errors Cranial nerves: CN II-XII grossly intact. Sensation: Intact and symmetrical limbs except decreased left dorsal foot, toes 2-4 Musculoskeletal: ROM WFL EXCEPT: decreased bilateral HF and KE pain and weakness limited. MMT UE Sh Abd EE EF FABD WE HG Right 4+ 5- 5- 5- 5 Left 5- 5- 5- 5- 5 MMT LE HF KE DF EHL Right 3+ 3+ 5 5 Left 3+ 3+ 5 5 Skin: Skin intact where visible to head, neck, and bilateral upper and lower extremities EXCEPT: back incisions which was not visualized today, peripheral IVs Psych: Calm, cooperative Results CBC & Chem 7: 10/05/23 06:05 10/05/23 06:05 Labs: Abnormal Lab Results - Last 24 Hours (Table) 10/05/23 10/05/23 Range/Units 06:05 06:05 RBC 3.16 L (4.10-5.20) X 10*6/uL Hgb 8.1 L (12.0-15.0) g/dL Hct 26.5 L (37.2-46.3) % MCH 25.6 L (27.0-32.0) pg MCHC 30.6 L (32.0-37.0) g/dL RDW 15.5 H (11.5-14.5) % Plt Count 125 L (140-440) X 10*3/uL BUN/Creatinine Ratio 21.00 H (12.00-20.00) Ratio Glucose 128 H (70-110) mg/dL Calcium 7.9 L (8.7-10.3) mg/dL Assessment and Plan Assessment: # Functional lower extremity paresis secondary to Lumbar stenosis with lumbar radiculopathy s/p L4-5, L5-S1 laminectomy/decompression with interbody fusion -PT/OT -fall precautions # Pain secondary to above # Impaired gait and ADLs # Fall Risk # History of alcoholic cirrhosis -history of paracentesis 2 yrs ago # History of CVA #Fibromylagia #History of tobacco abuse # Bowel/ Bladder: Nursing to monitor and report concerns if any. # Diet-regular # Skin/wound: Skin/Wound care to follow as needed # Pain Management -Tramadol 50 mg TID, Lyrica 75 mg BID prn, Ibuprofen 800 mg Q 8 hrs prn, Flexeril 10 mg TID prn, Decadron, dilaudid prn, Oxycodone 5 mg Q 6 hrs prn # DVT Prophylaxis: Defer to Ortho/IM management. # Comorbidities: GERD, hypothyroidism, OA, abdominal hernia, history of TIA, dumping syndrome s/p baractric sx, bowel resection, cholecystectomy, hysterectomy # Your medical dx and mgt Goals: Modified Independent mobility and ADLS both basic and advanced; increased functional mobility/strength; increased balance, safety, endurance. Improvement in medical issues through your care. Barriers: lives alone, endurance, pain Discharge recommendation: Patient is below her baseline function, she is pending full therapy evaluations, at this current time not ambulating. We will follow her progress, may be a candidate for [facility], she would like to come to [facility]. She will not need an insurance authorization. Patient seen and examined in collaboration with Dr. Mena Thank you for consulting our services.
[2023-10-05] MEDS: PREGABALIN 75 MG CAP PO PRN (22:41)
--- NOTE | 2023-10-06 08:56 | P.PN ---
Progress Note - Text Progress Note Date: 10/06/23 Orthopedic Spine History of present illness: Patient is a pleasant 68-year-old female who is seen and examined at the bedside following posterior lateral decompression and fusion performed Monday. Patient states they are doing okay post operatively. Currently does not complain of nausea, vomiting, fever, or chills. She was having some difficulty with pain control yesterday as she was unable to receive IV Dilaudid due to hypotension. She is currently on midodrine. Her blood pressures have been improving. She has been able to receive oral and IV pain medications. Her pain is much better controlled. She does continue to have difficulty with mobilization. She has been switched to inpatient. With consultation for further evaluation for possible discharge to inpatient rehabilitation at [facility]. It was discussed that she will most likely remain in the hospital until this coming 10/09/2023, with plans for discharge to inpatient rehabilitation at that time if approved by her insurance. Her Rubin catheter is currently still intact. Will plan to discontinue this once she is able to increase her mobility and ambulation. Patient does not currently have any other complaints at the bedside Physical Exam Lumbar Fusion: Status post surgical day number 2 Patient is awake, alert, and oriented 3 Vital signs stable Good chest excursion with deep inspiration and expiration Abdomen soft nontender Dorsiflexion, plantarflexion, and extensor hallucis longus positive sustained bilaterally No signs or symptoms of DVT; no calf pain; pneumatic cuffs intact bilateral lower extremities Optifoam dressings are intact over the lumbar spine and right iliac crest; no erythema, purulence, or signs of infection Left lumbar surgical dressing and right iliac crest surgical dressing are clean, dry, and intact Surgical dressing over the right lumbar paraspinal is saturated without active drainage currently Neurovascularly intact bilaterally lower extremities Patient has good range of motion of bilateral lower extremities independently Assessment: Status post minimally invasive posterior lateral decompression and fusion with transforaminal lumbar interbody fusion Low back pain L5-S1 recurrent spinal stenosis L4-5 and L5-S1 spinal stenosis Lower extremity weakness Lower extremity radiculopathy Lumbar degenerative disc disease Lumbar degenerative scoliosis Fibromyalgia History of alcoholic cirrhosis History of tobacco use Hypotension postoperatively Hypothyroidism History of TIA History of bowel resection dumping syndrome status post bariatric surgery Plan: 1. Ambulate as tolerated; work with Physical Therapy to increase mobilization; she may utilize walker or other aid to aid in ambulation as needed 2. Continue pain control with IV and oral medications; will plan to begin weaning the patient off of IV narcotic medication in anticipation for discharge to inpatient rehabilitation facility this coming 10/09/2023, if approved by insurance 3. Dressings to remain intact with Optifoam; patient may shower with dressings intact; the 1 surgical dressing is saturated over the lumbar spine. This will be removed and replaced with new Optifoam dressing today once patient is out of bed with physical therapy 4. Medical management can continue to manage patient for patient's other medical diagnoses 5. Rubin catheter remains intact. Will plan to discontinue his Rubin catheter once patient is able to increase her mobility and ambulation 6. We will continue to follow the patient closely; depending on the patient's progress, we are planning for discharge to [facility] inpatient rehab if approved this coming 10/09/2023 7. Patient can follow-up with Naveed Swenson PA-C or Dr. Tyler Huynh at [facility] in 2-3 weeks following discharge
[2023-10-06] MEDS: ONDANSETRON 4 MG/2 ML VIAL IVP PRN (10:12)
--- NOTE | 2023-10-06 11:56 | P.PN ---
Subjective Progress Note Date: 10/06/23 - History of Present Illness 10/05/2023 This is a 68-year-old female with past medical history significant for alcoholic cirrhosis, ascites-reports last paracentesis 2 years ago, gastroesophageal reflux disease, hypothyroidism and multiple other medical issues status post laminectomy and decompression L4-5 and L5-S1 with discectomy and aspiration of bone marrow from vertebral body pedicle L4 on the right, secondary to recurrent stenosis L5-S1, spinal stenosis L4-5, L5-S1, lower extremity radiculopathy, lower extremity weakness, low back pain, degenerative disc disease, degenerative scoliosis. Tolerated procedure well. Positive pain, currently rating it at a 8 or 9. Blood pressures soft, maintained on gentle IV fluid hydration. Maintaining O2 sats in the high 90s on room air. Afebrile. Labs pending. Denies nausea vomiting or abdominal pain. Reports she stood at the bedside with walker earlier today, with minimal lightheadedness. 10/06/2023 blood pressures improving with gentle IV fluid hydration. Pain better controlled today. Tmax 99.2. Requiring assistance with bed mobility, transfers and ambulation as per PT. evaluation by IPR in progress. Denies chest pain, palpitations or increased shortness of breath. Maintaining O2 sats in the 90s on room air. Objective - Vital Signs Vital signs: Vital Signs Temp 99.2 F 10/06/23 06:54 Pulse 87 10/06/23 09:35 Resp 19 10/06/23 06:54 BP 105/63 10/06/23 09:35 Pulse Ox 94 L 10/06/23 06:54 FiO2 Intake & Output 10/05/23 10/06/23 10/06/23 18:59 06:59 18:59 Intake Total 120 900 Output Total 2800 Balance -2680 900 Intake: Oral 120 900 Output: Urine 2800 Other: Voiding Method Indwelling Catheter Indwelling Catheter Indwelling Catheter # Voids 6 - Exam - Exam Gen: Alert and oriented x 3, sitting up in bed, no acute distress HEENT: normocephalic, atraumatic,MMM Neck: supple, no JVD CV: RRR, no murmur Lungs: Normal effort,clear thoughout Abd; soft, nondistended, +BS EXTR: No edema, no calf tenderness, positive DP pulses Neuro: Cranial nerves II through XII grossly intact ,no focal deficits - Labs CBC & Chem 7: 10/05/23 06:05 10/05/23 06:05 Labs: Abnormal Lab Results - Last 24 Hours (Table) 10/05/23 Range/Units 06:05 BUN/Creatinine Ratio 21.00 H (12.00-20.00) Ratio Glucose 128 H (70-110) mg/dL Calcium 7.9 L (8.7-10.3) mg/dL Assessment and Plan Assessment: Recurrent stenosis L5-S1, spinal stenosis L4-5, L5-S1, lower extremity radiculopathy, lower extremity weakness, status post laminectomy and decompression L4-5 and L5-S1 with discectomy and aspiration of bone marrow from vertebral body pedicle L4 on the right History of Alcoholic cirrhosis, ascites, paracentesis. Last paracentesis 2 years ago History of Hepatorenal syndrome History of Incarcerated umbilical hernia repair with enterococcus VRE. Plan: Continue on current medication regimen ,monitoring and symptomatic treatment. Pain management. PT. Currently being evaluated for possible inpatient rehab. Maintain aggressive pulmonary toileting with incentive spirometer reinforced. The impression and plan of care has been dictated as directed. : I performed a history and examination of this patient, discussed the same with the dictator. I agree with the dictator's note ,documented as a scribe. Any additional findings or plans will be noted.
[2023-10-07 09:01] LABS: Basophils # (A) 0.02 X 10*3/uL (0.00-0.10); Basophils % (A) 0.3 %; Eosinophils # (A) 0.25 X 10*3/uL (0.04-0.35); Eosinophils % (A) 3.4 %; HCT 26.6 % (37.2-46.3); HGB 8.3 g/dL (12.0-15.0); Lymphocytes # (A) 1.12 X 10*3/uL (0.90-5.00); Lymphocytes % (A) 15.3 %; MCH 26.1 pg (27.0-32.0); MCHC 31.2 g/dL (32.0-37.0); MCV 83.6 FL (80.0-97.0); Mean Platelet Volume 12.4 FL (9.5-12.2); Monocytes # (A) 0.73 X 10*3/uL (0.20-1.00); NRBC Per 100 WBC 0 X 10*3/uL (0.00-0.01); Neutrophils # (A) 5.16 X 10*3/uL (1.80-7.70); Neutrophils % (A) 70.7 %; Platelet Count 129 X 10*3/uL (140-440); RBC 3.18 X 10*6/uL (4.10-5.20); RDW 15.6 % (11.5-14.5)
[2023-10-07 09:22] LABS: Blood Urea Nitrogen 10.8 mg/dL (9.0-27.0); Calcium 7.8 mg/dL (8.7-10.3); Chloride 103 mmol/L (96-109); Glucose 93 mg/dL (70-110); Potassium 4.5 mmol/L (3.5-5.5); Sodium 135 mmol/L (135-145)
--- NOTE | 2023-10-07 13:27 | P.PN ---
Subjective This is a 68-year-old female with past medical history significant for alcoholic cirrhosis, ascites-reports last paracentesis 2 years ago, gastroesophageal reflux disease, hypothyroidism and multiple other medical issues status post laminectomy and decompression L4-5 and L5-S1 with discectomy and aspiration of bone marrow from vertebral body pedicle L4 on the right, secondary to recurrent stenosis L5-S1, spinal stenosis L4-5, L5-S1, lower extremity radiculopathy, lower extremity weakness, low back pain, degenerative disc disease, degenerative scoliosis. Tolerated procedure well. Positive pain, currently rating it at a 8 or 9. Blood pressures soft, maintained on gentle IV fluid hydration. Maintaining O2 sats in the high 90s on room air. Afebrile. Labs pending. Denies nausea vomiting or abdominal pain. Reports she stood at the bedside with walker earlier today, with minimal lightheadedness. 10/06/2023 blood pressures improving with gentle IV fluid hydration. Pain better controlled today. Tmax 99.2. Requiring assistance with bed mobility, transfers and ambulation as per PT. evaluation by IPR in progress. Denies chest pain, palpitations or increased shortness of breath. Maintaining O2 sats in the 90s on room air. 10/07/2023 Patient with no new complaint She has some pain at the surgical site and pain medication was adjusted by spine surgery team She is eating well, no bowel movement, no IV fluids with normal saline discontinued Hemoglobin is stable 8.1 and 8.3 and a platelet count 125 and 129 Patient denies any other new complaints We will check vitamin B12 and folate tomorrow Objective - Vital Signs Vital signs: Vital Signs Temp 98.6 F 10/07/23 06:51 Pulse 74 10/07/23 06:51 Resp 17 10/07/23 06:51 BP 98/60 10/07/23 06:51 Pulse Ox 95 10/07/23 06:51 FiO2 Intake & Output 10/06/23 10/07/23 10/07/23 18:59 06:59 18:59 Intake Total 1000 600 Output Total 500 Balance -500 1000 600 Intake: Intake, IV Titration 600 Amount Sodium Chloride 0.9% 1, 600 000 ml @ 75 mls/hr IV . [id number] [facility] Rx#:[id number] Oral 1000 Output: Urine 500 Uretheral (Rubin) 500 Other: Voiding Method Indwelling Catheter Toilet # Voids 1 3 - Exam GENERAL: The patient is alert and oriented x3, not in any acute distress. Well developed, well nourished. HEENT: Pupils are round and equally reacting to light. EOMI. No scleral icterus. No conjunctival pallor. Normocephalic, atraumatic. No pharyngeal erythema. No thyromegaly. CARDIOVASCULAR: S1 and S2 present. No murmurs, rubs, or gallops. PULMONARY: Chest is clear to auscultation, no wheezing , no crackles. ABDOMEN: Soft, nontender, nondistended, normoactive bowel sounds. No palpable organomegaly. -MUSCULOSKELETAL: No joint swelling or deformity. Surgical wound with dressing in place, rest of exam is deferred to surgery team EXTREMITIES: No cyanosis, clubbing, or pedal edema. NEUROLOGICAL: Gross neurological examination did not reveal any focal deficits. SKIN: No rashes. no petechiae. - Labs CBC & Chem 7: 10/07/23 06:13 10/07/23 06:13 Labs: Abnormal Lab Results - Last 24 Hours (Table) 10/07/23 10/07/23 Range/Units 06:13 06:13 RBC 3.18 L (4.10-5.20) X 10*6/uL Hgb 8.3 L (12.0-15.0) g/dL Hct 26.6 L (37.2-46.3) % MCH 26.1 L (27.0-32.0) pg MCHC 31.2 L (32.0-37.0) g/dL RDW 15.6 H (11.5-14.5) % Plt Count 129 L (140-440) X 10*3/uL MPV 12.4 H (9.5-12.2) FL Creatinine 0.5 L (0.6-1.5) mg/dL BUN/Creatinine Ratio 21.60 H (12.00-20.00) Ratio Calcium 7.8 L (8.7-10.3) mg/dL Assessment and Plan Assessment: Recurrent stenosis L5-S1, spinal stenosis L4-5, L5-S1, lower extremity radiculopathy, lower extremity weakness, status post laminectomy and decompression L4-5 and L5-S1 with discectomy and aspiration of bone marrow from vertebral body pedicle L4 on the right Mild anemia and thrombocytopenia, postop anemia is expected. Check B12 and folate level History of Alcoholic cirrhosis, ascites, paracentesis. Last paracentesis 2 years ago History of Hepatorenal syndrome History of Incarcerated umbilical hernia repair with enterococcus VRE. Plan: Continue with pain medication per surgery team Encourage incentive spirometry Check vitamin B12 and folate Surgery primary team followed closely DVT prophylaxis, recommended and deferred to surgery team GI prophylaxis Protonix Thank for consulting us
[2023-10-07] MEDS: oxyCODONE ER 10 MG TAB.ER.12H PO SCH (14:38)
[2023-10-07] MEDS: CALCIUM CARBONATE 500 MG CHEWABLE PO PRN (14:47)
--- NOTE | 2023-10-08 10:12 | P.PN ---
Subjective This is a 68-year-old female with past medical history significant for alcoholic cirrhosis, ascites-reports last paracentesis 2 years ago, gastroesophageal reflux disease, hypothyroidism and multiple other medical issues status post laminectomy and decompression L4-5 and L5-S1 with discectomy and aspiration of bone marrow from vertebral body pedicle L4 on the right, secondary to recurrent stenosis L5-S1, spinal stenosis L4-5, L5-S1, lower extremity radiculopathy, lower extremity weakness, low back pain, degenerative disc disease, degenerative scoliosis. Tolerated procedure well. Positive pain, currently rating it at a 8 or 9. Blood pressures soft, maintained on gentle IV fluid hydration. Maintaining O2 sats in the high 90s on room air. Afebrile. Labs pending. Denies nausea vomiting or abdominal pain. Reports she stood at the bedside with walker earlier today, with minimal lightheadedness. 10/06/2023 blood pressures improving with gentle IV fluid hydration. Pain better controlled today. Tmax 99.2. Requiring assistance with bed mobility, transfers and ambulation as per PT. evaluation by IPR in progress. Denies chest pain, palpitations or increased shortness of breath. Maintaining O2 sats in the 90s on room air. 10/07/2023 Patient with no new complaint She has some pain at the surgical site and pain medication was adjusted by spine surgery team She is eating well, no bowel movement, no IV fluids with normal saline discontinued Hemoglobin is stable 8.1 and 8.3 and a platelet count 125 and 129 Patient denies any other new complaints We will check vitamin B12 and folate tomorrow when 10/08/2023 Patient with no back pain, orthopedic primary team on the case with plan for her to go to rehab earlier next week No chest pain or dyspnea No respiratory or urinary symptoms, no dysuria or urgency or dyspnea or chest pain. No coughing. No rash. She has low-grade fever of 99.8 most likely sequelae of the procedure at surgery No clear evidence of infection and on antibiotics started we will keep monitoring Vitamin B12 and folate are ordered and pending Objective - Vital Signs Vital signs: Vital Signs Temp 98.1 F 10/08/23 06:59 Pulse 75 10/08/23 06:59 Resp 19 10/08/23 06:59 BP 101/66 10/08/23 06:59 Pulse Ox 97 10/08/23 06:59 FiO2 Intake & Output 10/07/23 10/08/23 10/08/23 18:59 06:59 18:59 Intake Total 600 630 Balance 600 630 Intake: Intake, IV Titration 600 150 Amount Sodium Chloride 0.9% 1, 600 150 000 ml @ 75 mls/hr IV . [id number] [facility] Rx#:[id number] Oral 480 Other: Voiding Method Toilet - Exam GENERAL: The patient is alert and oriented x3, not in any acute distress. Well developed, well nourished. HEENT: Pupils are round and equally reacting to light. EOMI. No scleral icterus. No conjunctival pallor. Normocephalic, atraumatic. No pharyngeal erythema. No thyromegaly. CARDIOVASCULAR: S1 and S2 present. No murmurs, rubs, or gallops. PULMONARY: Chest is clear to auscultation, no wheezing , no crackles. ABDOMEN: Soft, nontender, nondistended, normoactive bowel sounds. No palpable organomegaly. -MUSCULOSKELETAL: No joint swelling or deformity. Surgical wound with dressing in place, rest of exam is deferred to surgery team EXTREMITIES: No cyanosis, clubbing, or pedal edema. NEUROLOGICAL: Gross neurological examination did not reveal any focal deficits. SKIN: No rashes. no petechiae. - Labs CBC & Chem 7: 10/07/23 06:13 10/07/23 06:13 Assessment and Plan Assessment: Recurrent stenosis L5-S1, spinal stenosis L4-5, L5-S1, lower extremity radiculopathy, lower extremity weakness, status post laminectomy and decompression L4-5 and L5-S1 with discectomy and aspiration of bone marrow from vertebral body pedicle L4 on the right Mild anemia and thrombocytopenia, postop anemia is expected. Check B12 and folate level History of Alcoholic cirrhosis, ascites, paracentesis. Last paracentesis 2 years ago History of Hepatorenal syndrome History of Incarcerated umbilical hernia repair with enterococcus VRE. Plan: Continue with pain medication per surgery team Encourage incentive spirometry Check vitamin B12 and folate Surgery primary team followed closely DVT prophylaxis, recommended and deferred to surgery team GI prophylaxis Protonix Thank for consulting us
--- NOTE | 2023-10-08 10:20 | P.PN ---
Subjective Progress Note Date: 10/07/23 Principal diagnosis: S/P L4-S1 Decompression and Fusion Patient is a pleasant 68-year-old female who is seen and examined at the bedside [place]. She is s/p lateral decompression and fusion performed Monday, POD#3. Patient states they are doing okay post operatively. Currently does not complain of nausea, vomiting, fever, or chills. She continues with with pain control issues but improved some. She does continue to have difficulty with mobilization. She is awaiting transfer to inpatient rehabilitation at [facility] on Monday10/09/23. SHe has no new complaints today. Denies new numbness, tingling, calf pain or other Objective - Vital Signs Vital signs: Vital Signs Temp 98.6 F 10/07/23 06:51 Pulse 74 10/07/23 06:51 Resp 17 10/07/23 06:51 BP 98/60 10/07/23 06:51 Pulse Ox 95 10/07/23 06:51 FiO2 Intake & Output 10/06/23 10/07/23 10/07/23 18:59 06:59 18:59 Intake Total 1000 600 Output Total 500 Balance -500 1000 600 Intake: Intake, IV Titration 600 Amount Sodium Chloride 0.9% 1, 600 000 ml @ 75 mls/hr IV . [id number] [facility] Rx#:[id number] Oral 1000 Output: Urine 500 Uretheral (Rubin) 500 Other: Voiding Method Indwelling Catheter Toilet # Voids 1 3 - Exam Patient is awake, alert, and oriented 3 Vital signs stable Good chest excursion with deep inspiration and expiration Abdomen soft nontender Dorsiflexion, plantarflexion, and extensor hallucis longus positive sustained bilaterally No signs or symptoms of DVT; no calf pain; pneumatic cuffs intact bilateral lower extremities Optifoam dressings are intact over the lumbar spine and right iliac crest; no erythema, purulence, or signs of infection Left lumbar surgical dressing and right iliac crest surgical dressing are clean, dry, and intact Neurovascularly intact bilaterally lower extremities Patient has good range of motion of bilateral lower extremities independently - Constitutional General appearance: Present: no acute distress - Labs CBC & Chem 7: 10/07/23 06:13 10/07/23 06:13 Labs: Abnormal Lab Results - Last 24 Hours (Table) 10/07/23 10/07/23 Range/Units 06:13 06:13 RBC 3.18 L (4.10-5.20) X 10*6/uL Hgb 8.3 L (12.0-15.0) g/dL Hct 26.6 L (37.2-46.3) % MCH 26.1 L (27.0-32.0) pg MCHC 31.2 L (32.0-37.0) g/dL RDW 15.6 H (11.5-14.5) % Plt Count 129 L (140-440) X 10*3/uL MPV 12.4 H (9.5-12.2) FL Creatinine 0.5 L (0.6-1.5) mg/dL BUN/Creatinine Ratio 21.60 H (12.00-20.00) Ratio Calcium 7.8 L (8.7-10.3) mg/dL Assessment and Plan (1) Post-operative pain Narrative/Plan: She will continue with routine post op orthopedic protocol including pain management, wound care, PT, medical management and DVT prophylaxis. Will add Oxy ER to her pain medicine regiment to try to achieve better pain control. Plan is for her to transfer to [facility] Monday. Current Visit: Yes Status: Acute Code(s): G89.18 - OTHER ACUTE POSTPROCEDURAL PAIN SNOMED Code(s): 941959395 (2) Radiculopathy with lower extremity symptoms Current Visit: Yes Status: Acute Code(s): M54.10 - RADICULOPATHY, SITE UNSPECIFIED SNOMED Code(s): 23931173 Time with Patient: Less than 30
--- NOTE | 2023-10-08 13:45 | P.PN ---
Subjective Progress Note Date: 10/08/23 Principal diagnosis: S/P L4-S1 Decompression and Fusion Patient is a pleasant 68-year-old female who is seen and examined at the bedside [place]. She is s/p lateral decompression and fusion performed Monday, POD#4. Patient states she is doing better today. Pain control is improved since adding Oxy ER yesterday. Currently does not complain of nausea, vomiting, fever, or chills. She has improved with mobilization. She is awaiting transfer to inpatient rehabilitation at [facility] on Monday10/09/23. She has no new complaints today. Denies new numbness, tingling, calf pain or other Objective - Vital Signs Vital signs: Vital Signs Temp 98.1 F 10/08/23 06:59 Pulse 75 10/08/23 06:59 Resp 19 10/08/23 06:59 BP 101/66 10/08/23 06:59 Pulse Ox 97 10/08/23 06:59 FiO2 Intake & Output 10/07/23 10/08/23 10/08/23 18:59 06:59 18:59 Intake Total 600 630 Balance 600 630 Intake: Intake, IV Titration 600 150 Amount Sodium Chloride 0.9% 1, 600 150 000 ml @ 75 mls/hr IV . [id number] [facility] Rx#:[id number] Oral 480 Other: Voiding Method Toilet - Exam Patient is awake, alert, and oriented 3 Vital signs stable Good chest excursion with deep inspiration and expiration Abdomen soft nontender Dorsiflexion, plantarflexion, and extensor hallucis longus positive sustained bilaterally No signs or symptoms of DVT; no calf pain; pneumatic cuffs intact bilateral lower extremities Optifoam dressings are intact over the lumbar spine and right iliac crest; no erythema, purulence, or signs of infection Left lumbar surgical dressing and right iliac crest surgical dressing are clean, dry, and intact Neurovascularly intact bilaterally lower extremities Patient has good range of motion of bilateral lower extremities independently 2+ Dp pulses and cap refill present - Constitutional General appearance: Present: no acute distress - Labs CBC & Chem 7: 10/07/23 06:13 10/07/23 06:13 Assessment and Plan (1) Post-operative pain Narrative/Plan: She will continue with routine post op orthopedic protocol including pain management, wound care, PT, medical management and DVT prophylaxis. Plan is for her to transfer to [facility] tomorrow, Monday. Current Visit: Yes Status: Acute Priority: Medium Code(s): G89.18 - OTHER ACUTE POSTPROCEDURAL PAIN SNOMED Code(s): 231753696 (2) Radiculopathy with lower extremity symptoms Current Visit: Yes Status: Acute Priority: Medium Code(s): M54.10 - RADI CULOPATHY, SITE UNSPECIFIED SNOMED Code(s): 87690916 Time with Patient: Less than 30
[2023-10-09 08:43] VITALS: RESP 19; TEMP 98.3
[2023-10-09 09:13] VITALS: BP 99/66; PULSE 75
--- NOTE | 2023-10-09 09:59 | P.DS ---
Providers Date of admission: 10/05/23 13:50 Expected date of discharge: 10/09/23 Attending physician: Elian Huynh Consults: 10/04/23 18:05 Consult Physician Routine Consulting Provider: Stanton Camara Consult Reason/Comments: Medical management Do you want consulting provider notified?: Yes 10/05/23 13:21 Consult Physician Routine Consulting Provider: Rickey Neal Reason/Comments: IP Rehab eval Do you want consulting provider notified?: Yes Primary care physician: Stanton Camara MD - Discharge Diagnosis(es) (1) Lumbar spinal stenosis Current Visit: Yes Status: Acute (2) Lumbar degenerative disc disease Current Visit: Yes Status: Acute (3) Lumbar scoliosis Current Visit: Yes Status: Acute (4) Lower extremity weakness Current Visit: Yes Status: Acute (5) Radiculopathy with lower extremity symptoms Current Visit: Yes Status: Acute Priority: Medium (6) Low back pain Current Visit: Yes Status: Acute (7) Fibromyalgia Current Visit: Yes Status: Acute Hospital Course: This is a pleasant 68-year-old female who presented with L5-S1 recurrent spinal stenosis, L4-5 and L5-S1 spinal stenosis, lower extremity radiculopathy with weakness, low back pain, lumbar degenerative disc disease, and degenerative scoliosis who failed outpatient conservative therapy. She was admitted for an L4-5 and L5-S1 minimally invasive posterior lateral decompression and fusion with transforaminal lumbar interbody fusion. The patient tolerated the procedure well and did well postoperatively. She has been improving slowly. She has been working to increase her mobility and ambulation. She does have some increased low back pain and left lower extremity pain with standing and ambulation. She is currently planning for discharge to [facility] inpatient rehabilitation today. This is being worked on by case management. If patient was unable to go to inpatient rehabilitation, she may be discharged [facility]. Condition on day of discharge stable. Patient was cleared preoperatively for surgery by Dr. Camara. Patient currently denies any nausea, vomiting, fever, or chills. Patient is eating and voiding freely without difficulty. She has not had a bowel movement but is passing gas and does not have any abdominal pain or discomfort. Her abdomen is soft. Dressings have been removed over the surgical sites. There is no active drainage. No obvious sign of infection. Patient may currently shower without a dressing intact. Patient should refrain from driving until at least after their first follow-up appointment in the office. Patient should avoid excessive bending, lifting, and twisting; no lifting greater than 10 pounds. MAPS has been reviewed today, 10/09/2023. An "Opiod Start Talking" Form has been signed and placed in the patient's chart. A prescription has been written for Percocet 5 mg / 325 mg, 1 tab, every 6 hours, as needed for acute pain, dispense #28. Prescription is printed, signed, and placed in her chart for rehab. 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 Patient will need to be cleared by medicine prior to discharge today. Medicine to complete the med rec prior to discharge. Physical Exam on day of discharge: Patient is awake, alert, and oriented 3 Vital signs stable Good chest excursion with deep inspiration and expiration Abdomen soft nontender No signs or symptoms of DVT; no calf pain Extensor hallucis longus, plantarflexion, and dorsiflexion positive sustained bilateral lower extremities Surgical incision sites are clean, dry, and intact; no erythema, purulence, or signs of infection Optifoam dressings have been removed Procedures: L4-5 and L5-S1 minimally invasive posterior lateral decompression and fusion with transforaminal lumbar interbody fusion Patient Condition at Discharge: Stable Plan - Discharge Summary Discharge Rx Participant: No New Discharge Prescriptions: New Sennosides-Docusate Sodium [Senokot-S] 1 tab PO BID PRN #60 tablet PRN Reason: Constipation Baclofen 10 mg PO TID PRN #90 tab PRN Reason: Spasms oxyCODONE-APAP 5-325MG [Percocet 5-325 mg] 1 tab PO Q6HR PRN #28 tab PRN Reason: Pain No Action Levothyroxine Sodium [Synthroid] 50 mcg PO AC-BRKFST Potassium Chloride ER [K-Dur 20] 10 meq PO TID Folic Acid 0.4 mg PO QAM Spironolactone [Aldactone] 100 mg PO QAM Docusate [Colace] 100 mg PO QAM PRN PRN Reason: Constipation Ferrous Sulfate [Iron] 325 mg PO QAM Sennosides [Senokot] 8.6 mg PO QAM PRN PRN Reason: Constipation traMADol HCl [Ultram] 50 mg PO QID Cyanocobalamin (Vitamin B-12) [Vitamin B-12] 2 tab PO DAILY Pregabalin [Lyrica] 75 mg PO BID PRN PRN Reason: Pain Multivitamin [Multivitamins Adult Gummies] 1 tab PO QAM rOPINIRole HCL [Requip] 0.5 mg PO HS PRN PRN Reason: RLS Pantoprazole [Protonix] 40 mg PO AC-BRKFST tab Midodrine [ProAmatine] 5 mg PO TID PRN PRN Reason: Blood Pressure - Low Furosemide [Lasix] 80 mg PO QAM Ibuprofen 800 mg PO Q8H PRN PRN Reason: Pain Discharge Medication List Multivitamin [Multivitamins Adult Gummies] 1 tab PO QAM 03/15/21 [History] rOPINIRole HCL [Requip] 0.5 mg PO HS PRN 06/19/21 [History] Pantoprazole [Protonix] 40 mg PO AC-BRKFST tab 06/24/21 [Rx] Folic Acid 0.4 mg PO QAM 12/29/21 [History] Levothyroxine Sodium [Synthroid] 50 mcg PO AC-BRKFST 12/29/21 [History] Midodrine [ProAmatine] 5 mg PO TID PRN 12/29/21 [History] Potassium Chloride ER [K-Dur 20] 10 meq PO TID 12/29/21 [History] Spironolactone [Aldactone] 100 mg PO QAM 08/08/22 [History] Docusate [Colace] 100 mg PO QAM PRN 12/21/22 [History] Ferrous Sulfate [Iron] 325 mg PO QAM 12/21/22 [History] Furosemide [Lasix] 80 mg PO QAM 12/21/22 [History] Sennosides [Senokot] 8.6 mg PO QAM PRN 12/21/22 [History] Cyanocobalamin (Vitamin B-12) [Vitamin B-12] 2 tab PO DAILY 06/22/23 [History] traMADol HCl [Ultram] 50 mg PO QID 06/22/23 [History] Ibuprofen 800 mg PO Q8H PRN 09/28/23 [History] Pregabalin [Lyrica] 75 mg PO BID PRN 09/28/23 [History] Baclofen 10 mg PO TID PRN #90 tab 10/09/23 [Rx] Sennosides-Docusate Sodium [Senokot-S] 1 tab PO BID PRN #60 tablet 10/09/23 [Rx] oxyCODONE-APAP 5-325MG [Percocet 5-325 mg] 1 tab PO Q6HR PRN #28 tab 10/09/23 [Rx] Follow up Appointment(s)/Referral(s): Naveed Swenson, PAC [PHYSICIAN HEAD OF MEASUREMENT & INSIGHTS] - 2 Weeks (Patient may follow-up with Naveed Swenson PA-C or Dr. Tyler Huynh at [facility] in 2-3 weeks following discharge. ) Activity/Diet/Wound Care/Special Instructions: 1. Patient may shower without Optifoam dressing intact. 2. Patient should refrain from driving until at least after their first follow- up appointment in the office. 3. Patient should avoid excessive bending, twisting, lifting; avoid overhead lifting; no lifting greater than 10 pounds 4. Take medications as prescribed 5. Patient should avoid anti-inflammatory medications over the next 6 weeks postoperatively 6. Do not soak in tub Discharge Disposition: TRANSFER TO SNF/ECF
--- NOTE | 2023-10-09 14:27 | P.PN ---
Subjective Progress Note Date: 10/09/23 - History of Present Illness 10/05/2023 This is a 68-year-old female with past medical history significant for alcoholic cirrhosis, ascites-reports last paracentesis 2 years ago, gastroesophageal reflux disease, hypothyroidism and multiple other medical issues status post laminectomy and decompression L4-5 and L5-S1 with discectomy and aspiration of bone marrow from vertebral body pedicle L4 on the right, secondary to recurrent stenosis L5-S1, spinal stenosis L4-5, L5-S1, lower extremity radiculopathy, lower extremity weakness, low back pain, degenerative disc disease, degenerative scoliosis. Tolerated procedure well. Positive pain, currently rating it at a 8 or 9. Blood pressures soft, maintained on gentle IV fluid hydration. Maintaining O2 sats in the high 90s on room air. Afebrile. Labs pending. Denies nausea vomiting or abdominal pain. Reports she stood at the bedside with walker earlier today, with minimal lightheadedness. 10/06/2023 blood pressures improving with gentle IV fluid hydration. Pain better controlled today. Tmax 99.2. Requiring assistance with bed mobility, transfers and ambulation as per PT. evaluation by IPR in progress. Denies chest pain, palpitations or increased shortness of breath. Maintaining O2 sats in the 90s on room air. 10/09/2023 significant clinical improvement. Sitting up at bedside, denies chest pain, palpitations or shortness of breath. Denies lightheadedness, dizziness or focal deficits. Reports no pain at rest only pain with exertion. Soft blood pressures, Aldactone decreased to 50 mg with Lasix 40 mg p.o. resumed, in addition to Midodrin. Denies nausea vomiting or diarrhea. Denies abdominal pain. Objective - Vital Signs Vital signs: Vital Signs Temp 98.3 F 10/09/23 07:32 Pulse 75 10/09/23 08:49 Resp 19 10/09/23 07:32 BP 99/66 10/09/23 08:49 Pulse Ox 93 L 10/09/23 07:32 FiO2 Intake & Output 10/08/23 10/09/23 10/09/23 18:59 06:59 18:59 Intake Total 630 480 Balance 630 480 Intake: Intake, IV Titration 150 Amount Sodium Chloride 0.9% 1, 150 000 ml @ 75 mls/hr IV . [id number] [facility] Rx#:[id number] Oral 480 480 Other: Voiding Method Toilet Toilet # Voids 3 3 - Exam - Exam Gen: Alert and oriented x 3, sitting up in bed, no acute distress HEENT: normocephalic, atraumatic,MMM Neck: supple, no JVD CV: RRR, no murmur Lungs: Normal effort,clear thoughout Abd; soft, nondistended, +BS EXTR: No edema, no calf tenderness, positive DP pulses Neuro: Cranial nerves II through XII grossly intact ,no focal deficits - Labs CBC & Chem 7: 10/07/23 06:13 10/07/23 06:13 Assessment and Plan Assessment: Recurrent stenosis L5-S1, spinal stenosis L4-5, L5-S1, lower extremity radiculopathy, lower extremity weakness, status post laminectomy and decompression L4-5 and L5-S1 with discectomy and aspiration of bone marrow from vertebral body pedicle L4 on the right History of Alcoholic cirrhosis, ascites, paracentesis. Last paracentesis 2 years ago History of Hepatorenal syndrome History of Incarcerated umbilical hernia repair with enterococcus VRE. Plan: Continue on current medication regimen ,monitoring and symptomatic treatment. Pain management. Maintain aggressive pulmonary toileting with incentive spirometer reinforced. Transfer to [facility] inpatient rehab in progress. The impression and plan of care has been dictated as directed. : I performed a history and examination of this patient, discussed the same with the dictator. I agree with the dictator's note ,documented as a scribe. Any additional findings or plans will be noted.
--- NOTE | 2023-10-12 12:15 | CDI ---
Documentation Clarification Form Date: 10/12/2023 11:26:51 AM From: Mounika Clancy RN CCDS Phone: [phone] Admit Date: 10/05/2023 01:50:00 PM Patient Name: Shyann Wynn Visit Number: [id number] Discharge Date: 10/09/2023 02:18:00 PM ATTENTION: The Clinical Documentation Specialists (CDI) and [facility] Coding Staff appreciate your assistance in clarifying documentation. Please respond to the clarification below the line at the bottom and electronically sign. The CDI & [facility] Coding staff will review the response and follow-up if needed. Please note: Queries are made part of the Legal Health Record. If you have any questions, please contact the author of this message via ITS. Dr. Elian Huynh Hypotension postoperatively is documented 10/06, Orthopedic note and patient had Laminectomy, decompression and Transforaminal lumbar interbody fusion, 10/04. Additional clarification is requested regarding the relationship, if any, that exists between the diagnosis and the procedure. Patients Admitting Diagnosis: Recurrent stenosis L5-S1, spinal stenosis L4-5, L5-S1 lower extreme radiculopathy, lower extremity weakness, low back pain, degenerative disc disease, degenerative scoliosis. Post-Operative Diagnosis: Same as admitting diagnosis Procedure performed: Laminectomy, decompression and Transforaminal lumbar interbody fusion History/Risk Factors: 68-year old female presents to [facility] of elective spinal surgery. Medical History: Hypothyroidism, GERD, DDD, Osteoarthrits, Hypotension and Bariatric surgery. Clinical Indicators: 10/05, 08:19 B/P 90/52, HR 88; 10/06, 06:54 B/P 94/51, HR 87; 10/07 06:51 B/P 98/60, HR 74; 10/08 18:44 B/P 96/59, HR 79 Medicine Consult, 10/05: Medical history Hypotension. Home medications listed in [employer] summary: Midodrine 5mg PO TID PRN for Blood Pressure - Low Inpatient medication: Midodrine 5mg PO TID PRN for Blood Pressure Low Midodrine 5mg administered: 10/05: 08:19, 15:14, 22:39. 10/06 06:28, 16:26. 10/09 09:59 Treatment: 10/04 10/09 Midodrine 5mg PO TID PRN Blood Pressure Low. 10/05 10/09 Aldactone po 100mg QAM, 10/09 Aldactone 50mg po QAM; 10/05 resumed Lasix 40mg po Daily , 10/04 10/09 0.9NS 75cc/hr What relationship, if any, exists between the diagnosis of hypotension postoperatively and the procedure: [ ] Hypotension is a complication of surgical procedure [ ] Hypotension is related to patients co-morbid condition of chronic hypotension & not a complication of the procedure [ ] Other please specify ____ [ ] Unable to determine (Template Last Revised: November 2020) MTDD
--- NOTE | 2023-10-18 09:52 | CDI ---
Documentation Clarification Form Date: 10/12/2023 11:26:00 AM From: Mounika Clancy RN CCDS Phone: [phone] Admit Date: 10/05/2023 01:50:00 PM Patient Name: Shyann Wynn Visit Number: [id number] Discharge Date: 10/09/2023 02:18:00 PM ATTENTION: The Clinical Documentation Specialists (CDI) and [facility] Coding Staff appreciate your assistance in clarifying documentation. Please respond to the clarification below the line at the bottom and electronically sign. The CDI & [facility] Coding staff will review the response and follow-up if needed. Please note: Queries are made part of the Legal Health Record. If you have any questions, please contact the author of this message via ITS. Dr. Elian Huynh Hypotension postoperatively is documented 10/06, Orthopedic note and patient had Laminectomy, decompression and Transforaminal lumbar interbody fusion, 10/04. Additional clarification is requested regarding the relationship, if any, that exists between the diagnosis and the procedure. Patients Admitting Diagnosis: Recurrent stenosis L5-S1, spinal stenosis L4-5, L5-S1 lower extreme radiculopathy, lower extremity weakness, low back pain, degenerative disc disease, degenerative scoliosis. Post-Operative Diagnosis: Same as admitting diagnosis Procedure performed: Laminectomy, decompression and Transforaminal lumbar interbody fusion History/Risk Factors: 68-year old female presents to [facility] of elective spinal surgery. Medical History: Hypothyroidism, GERD, DDD, Osteoarthrits, Hypotension and Bariatric surgery. Clinical Indicators: 10/05, 08:19 B/P 90/52, HR 88; 10/06, 06:54 B/P 94/51, HR 87; 10/07 06:51 B/P 98/60, HR 74; 10/08 18:44 B/P 96/59, HR 79 Medicine Consult, 10/05: Medical history Hypotension. [facility]: Midodrine 5mg PO TID PRN for Blood Pressure - Low Inpatient medication: Midodrine 5mg PO TID PRN for Blood Pressure Low Midodrine 5mg administered: 10/05: 08:19, 15:14, 22:39. 10/06 06:28, 16:26. 10/09 09:59 Treatment: 10/04 10/09 Midodrine 5mg PO TID PRN Blood Pressure Low. 10/05 10/09 Aldactone po 100mg QAM, 10/09 Aldactone 50mg po QAM; 10/05 resumed Lasix 40mg po Daily , 10/04 10/09 0.9NS 75cc/hr What relationship, if any, exists between the diagnosis of hypotension postoperatively and the procedure: [ ] Hypotension is a complication of surgical procedure [ X ] Hypotension is related to patients co-morbid condition of chronic hypotension & not a complication of the procedure [ ] Other please specify ____ [ ] Unable to determine (Template Last Revised: November 2020) MTDD
== END 2023-10-09 14:18 | DRG 454 ==
LOC: OR 10:59 → 4SSUR 17:56 → OR 10-05 13:50
PROVIDERS: ADMIT Orthopaedic Surgery Orthopaedic Surgery of the Spine; ATTEND Orthopaedic Surgery Orthopaedic Surgery of the Spine
PROC: 0SG0071 Fusion of Lumbar Vertebral Joint with Autologous Tissue Substitute, Posterior Approach, Posterior Column, Open Approach (ICD-10-PCS; 2023-10-04)
PROC: 0SG30AJ Fusion of Lumbosacral Joint with Interbody Fusion Device, Posterior Approach, Anterior Column, Open Approach (ICD-10-PCS; 2023-10-04)
PROC: 0SG3071 Fusion of Lumbosacral Joint with Autologous Tissue Substitute, Posterior Approach, Posterior Column, Open Approach (ICD-10-PCS; 2023-10-04)
PROC: 0ST40ZZ Resection of Lumbosacral Disc, Open Approach (ICD-10-PCS; 2023-10-04)
PROC: 01NB0ZZ Release Lumbar Nerve, Open Approach (ICD-10-PCS; 2023-10-04)
PROC: 01NR0ZZ Release Sacral Nerve, Open Approach (ICD-10-PCS; 2023-10-04)
PROC: 0QU007Z Supplement Lumbar Vertebra with Autologous Tissue Substitute, Open Approach (ICD-10-PCS; 2023-10-04)
PROC: 07DS3ZZ Extraction of Vertebral Bone Marrow, Percutaneous Approach (ICD-10-PCS; 2023-10-04)
PROC: 8E0WXBZ Computer Assisted Procedure of Trunk Region (ICD-10-PCS; 2023-10-04)
PROC: 0SG00AJ Fusion of Lumbar Vertebral Joint with Interbody Fusion Device, Posterior Approach, Anterior Column, Open Approach (ICD-10-PCS; principal; 2023-10-04 12:45)
PROC: 02HV33Z Insertion of Infusion Device into Superior Vena Cava, Percutaneous Approach (ICD-10-PCS; 2023-10-05)
PROC: 03HY32Z Insertion of Monitoring Device into Upper Artery, Percutaneous Approach (ICD-10-PCS; 2023-10-05)
PROC: 4A133B1 Monitoring of Arterial Pressure, Peripheral, Percutaneous Approach (ICD-10-PCS; 2023-10-05)
PROC: 4A133J1 Monitoring of Arterial Pulse, Peripheral, Percutaneous Approach (ICD-10-PCS; 2023-10-05)
DX: M51.27 Other intervertebral disc displacement, lumbosacral region (principal); D62 Acute posthemorrhagic anemia; K70.31 Alcoholic cirrhosis of liver with ascites; K91.1 Postgastric surgery syndromes; M41.56 Other secondary scoliosis, lumbar region; I95.89 Other hypotension; K70.30 Alcoholic cirrhosis of liver without ascites; D69.59 Other secondary thrombocytopenia; E03.9 Hypothyroidism, unspecified; F10.11 Alcohol abuse, in remission; M48.061 Spinal stenosis, lumbar region without neurogenic claudication; M51.16 Intervertebral disc disorders with radiculopathy, lumbar region; M51.17 Intervertebral disc disorders with radiculopathy, lumbosacral region; M48.07 Spinal stenosis, lumbosacral region; M47.26 Other spondylosis with radiculopathy, lumbar region; M43.27 Fusion of spine, lumbosacral region; K21.9 Gastro-esophageal reflux disease without esophagitis; M79.7 Fibromyalgia; N39.3 Stress incontinence (female) (male); R26.9 Unspecified abnormalities of gait and mobility; Z74.2 Need for assistance at home and no other household member able to render care; R50.9 Fever, unspecified; R53.81 Other malaise; Z98.84 Bariatric surgery status; Z87.891 Personal history of nicotine dependence; Z86.73 Personal history of transient ischemic attack (TIA), and cerebral infarction without residual deficits; Z79.890 Hormone replacement therapy; Z79.899 Other long term (current) drug therapy; Z88.6 Allergy status to analgesic agent; Z86.79 Personal history of other diseases of the circulatory system; Z86.19 Personal history of other infectious and parasitic diseases
CPT/HCPCS: 72100; 80048; 82607; 82746; 85025; 86850; 86891; 86900; 86901

== ENCOUNTER → 2024-05-06 | Outpatient (CLI) | payer MEDICARE ==
--- NOTE | 2024-05-06 10:56 | US ---
EXAMINATION TYPE: US liver DATE OF EXAM: 05/06/2024 COMPARISON: NONE CLINICAL INDICATION: Female, 68 years old with history of K70.31 ALCOHOLIC CIRRHOSIS LIVER; yearly li kendall US for known cirrhosis, no symptoms, cholecystectomy TECHNIQUE: Multiple sonographic images of the right upper quadrant are obtained. FINDINGS: EXAM MEASUREMENTS: Liver Length: 13.5 cm Gallbladder Wall: Surgically absent CBD: 0.8 cm Right Kidney: 9.4 x 4.0 x 4.5 cm DRAPERY COUNSELOR NOTES:bowel gas obscures imaging Pancreas: obscured by bowel gas Liver: heterogeneous no masses dilated ducts or cysts. Gallbladder: Surgically absent Evidence for sonographic Terrazas's sign: no CBD: wnl Right Kidney: wnl IMPRESSION: Hepatocellular disease without suspicious mass.
== END | disposition home or self-care (01) ==
LOC: RADUSWWP 10:18
PROVIDERS: ATTEND Internal Medicine Gastroenterology
DX: K70.31 Alcoholic cirrhosis of liver with ascites
CPT/HCPCS: 76705; 82105

== ENCOUNTER → 2024-11-12 | Outpatient (CLI) | payer MEDICARE ==
--- NOTE | 2024-11-12 18:15 | MM ---
Reason for Exam: Screening (asymptomatic). Last mammogram was performed 3 year(s) and 0 month(s) ago. Patient History: Menarche at age 9. First Full-Term at age 18. Hysterectomy at age 42. Postmenopausal. Estrogen for 2 years until age 46. Progesterone for 2 years until age 46. 1984, Benign Excisional Biopsy on the left side. Mother had breast cancer, age 75. Risk Values: Traci 5 year model risk: 4.3%. NCI Lifetime model risk: 11.6%. Prior Study Comparison: 01/11/2019 Left Diagnostic Mammogram, [facility]. 07/24/2019 Bilateral Diagnostic Mammogram, [facility]. 11/24/2021 Bilateral Screening Mammogram, [facility]. Tissue Density: The breasts are heterogeneously dense, which may obscure small masses. Findings: Analyzed By CAD. Areas of asymmetric density on the left remain unchanged compared to the 2019 prior. Benign bilateral vascular calcifications. There is no suspicious group of microcalcifications or new suspicious mass in either breast. Overall Assessment: Benign, BI-RAD 2 Management: Screening Mammogram of both breasts in 1 year. See note below in regards to the patient's increased 5 year Traci score. Patient should continue monthly self-breast exams. A clinical breast exam by your physician is recommended on an annual basis. This exam should not preclude additional follow-up of suspicious palpable abnormalities. Note on Traci scores and lifetime risk: 1. A Traci score greater than 3% is considered moderate risk. If this is the case, consider specialist referral to assess eligibility for a risk reducing agent. 2. If overall lifetime risk for the development of breast cancer is 20% or higher, the patient may qualify for future screening with alternating mammogram and breast MRI. [facility], , 11/12/2024 6:12 PM. Electronically signed and approved by: Megan Chavez M.D. Radiologist
== END | disposition home or self-care (01) ==
LOC: RADMAMWWP 14:26
PROVIDERS: ATTEND Family Medicine
DX: Z12.31 Encounter for screening mammogram for malignant neoplasm of breast (principal); R92.333 Mammographic heterogeneous density, bilateral breasts; Z78.0 Asymptomatic menopausal state; Z80.3 Family history of malignant neoplasm of breast
CPT/HCPCS: 77063; 77067

== ENCOUNTER → 2024-12-12 | Outpatient (CLI) | payer MEDICARE ==
[2024-12-12 17:14] LABS: Partial Thromboplastin Time 23.9 sec (22.0-30.0); Prothrombin Time 10.9 sec (10.0-12.5)
[2024-12-13 02:11] LABS: HCT 43.1 % (37.2-46.3); HGB 13.4 g/dL (12.0-15.0); MCH 27.5 pg (27.0-32.0); MCHC 31.1 g/dL (32.0-37.0); MCV 88.3 FL (80.0-97.0); Mean Platelet Volume 11.5 FL (9.5-12.2); NRBC Per 100 WBC 0 X 10*3/uL (0.00-0.01); Platelet Count 165 X 10*3/uL (140-440); RBC 4.88 X 10*6/uL (4.10-5.20); RDW 19.9 % (11.5-14.5); WBC 6.73 X 10*3/uL (4.50-10.00)
[2024-12-13 02:23] LABS: ALT 32 U/L (8-44); AST 36 U/L (13-35); Albumin 4.1 g/dL (3.8-4.9); Albumin/Globulin Ratio 1.95 Ratio (1.60-3.17); Alkaline Phosphatase 117 U/L (41-126); BUN/Creat Ratio 18.56 Ratio (12.00-20.00); Blood Urea Nitrogen 16.7 mg/dL (9.0-27.0); Calcium 9.2 mg/dL (8.7-10.3); Carbon Dioxide 25.4 mmol/L (21.6-31.8); Chloride 110 mmol/L (96-109); Globulin 2.1 g/dL (1.6-3.3); Glucose 84 mg/dL (70-110); Potassium 4.6 mmol/L (3.5-5.5); Sodium 147 mmol/L (135-145); Total Bilirubin 0.3 mg/dL (0.3-1.2); Total Protein 6.2 g/dL (6.2-8.2)
== END | disposition home or self-care (01) ==
LOC: LABPAT 16:16
PROVIDERS: ATTEND Orthopaedic Surgery Sports Medicine
DX: Z01.812 Encounter for preprocedural laboratory examination (principal); Z22.322 Carrier or suspected carrier of Methicillin resistant Staphylococcus aureus; M19.011 Primary osteoarthritis, right shoulder
CPT/HCPCS: 80053; 85027; 85610; 85730; 87070

== ENCOUNTER 2024-12-26 05:34 | Inpatient (IN) | payer MEDICARE ==
[~2024-12-26 05:34] MED LIST changes: +ACETAMINOPHEN TAB 500 MG TAB PO PRN; -HEPARIN SODIUM 1,000 UN/ML (10ML VL) ONE; -ONDANSETRON 4 MG/2 ML VIAL ONE; +TRANEXAMIC 1,000 MG/100ML-NACL 1,000 MG in SALINE 1 100ML.BAG IVPB PRN
[2024-12-26] MEDS: IV FLUID CONTINUATION 1,000 ML IV ONE (06:37)
[2024-12-26] MEDS: LACTATED RINGERS 1,000 ML IV SCH ×2 (06:37→10:01)
[2024-12-26] MEDS: GABAPENTIN 300 MG CAP PO PRN (06:43)
[2024-12-26] MEDS: MELOXICAM 7.5 MG TAB PO PRN (06:43)
[2024-12-26] MEDS: ONDANSETRON 4 MG/2 ML VIAL IVP PRN (06:44)
[2024-12-26] MEDS: DEXAMETHASONE SOD PHOSPHATE 4 MG/ML 1 ML VIAL IV ONE (06:44)
[2024-12-26] MEDS: MIDAZOLAM 2 MG/2 ML VIAL IV ONE (06:57)
[2024-12-26] MEDS ORDERED: HYDROmorphone 0.5 MG/0.5 ML SYRINGE IVP PRN ×3 (07:00→09:15)
[2024-12-26] MEDS ORDERED: LIDOCAINE 1% INJ 10MG/ML (20 ML MDV) ONE (07:23)
[2024-12-26] MEDS ORDERED: ePHEDrine 50 MG/ML 1 ML VIAL ONE (07:23)
[2024-12-26] MEDS ORDERED: SUCCINYLCHOLINE CHLORIDE 200 MG/10 ML VIAL IV ONE (07:23)
[2024-12-26] MEDS ORDERED: ROCURONIUM 10 MG/ML (5 ML VIAL) IV ONE (07:23)
[2024-12-26] MEDS ORDERED: DEXAMETHASONE SOD PHOSPHATE 4 MG/ML 1 ML VIAL ONE (07:23)
[2024-12-26] MEDS ORDERED: TRANEXAMIC 1,000 MG/100ML-NACL PREMIX BAG ONE (07:23)
[2024-12-26] MEDS ORDERED: GLYCOPYRROLATE 0.2 MG/ML 2 ML VIAL ONE (07:23)
[2024-12-26] MEDS ORDERED: NEOSTIGMINE 1 MG/ML 10 ML VIAL ONE (07:23)
[2024-12-26] MEDS ORDERED: WATER FOR INJECTION, STERILE 10 ML VIAL IV ONE (07:23)
[2024-12-26] MEDS ORDERED: ROPIVACAINE 5 MG/ML 30 ML VIAL ONE (07:23)
[2024-12-26] MEDS ORDERED: PROPOFOL 10 MG/ML 20 ML VIAL IV ONE (07:23)
[2024-12-26] MEDS ORDERED: PHENYLEPHRINE 10 MG/ML VIAL ONE (07:23)
[2024-12-26] MEDS: ceFAZolin 2 GM in DEXTROSE 5% IN WATER 50 ML IVPB PRN (07:32)
[2024-12-26] MEDS: ceFAZolin 1,000 MG in SODIUM CHLORIDE 0.9% 1,000 ML IRRIGATION ONE (08:02)
[2024-12-26] MEDS: VANCOMYCIN 1,000 MG VIAL MISCELLANE ONE (08:33)
[2024-12-26] MEDS ORDERED: ONDANSETRON 4 MG/2 ML VIAL IVP PRN (09:15)
[2024-12-26] MEDS ORDERED: SENNOSIDES-DOCUSATE SODIUM 1 EACH TAB PO PRN (09:15)
[2024-12-26] MEDS: ONDANSETRON 4 MG/2 ML VIAL IVP ONE (10:00)
--- NOTE | 2024-12-26 10:41 | XR ---
EXAMINATION TYPE: XR shoulder one view RT DATE OF EXAM: 12/26/2024 10:20 AM COMPARISON: None CLINICAL INDICATION: Female, 69 years old with history of post op; PHH, pain FINDINGS: Single frontal postoperative abdomen showing placement of reverse total shoulder arthroplasty. Both t he glenoid and humeral stem components appear well seated without periprosthetic fracture. Alignment appears satisfactory. ACDF hardware. Scattered soft tissue air related to recent operation. There are some interstitial changes in the visualized right hemithorax. IMPRESSION: 1. Uncomplicated postoperative appearance reversed right total shoulder arthroplasty. 2. Interstitial changes in the right lung may be due to low lung volumes. Correlate to exclude fluid overload/CHF. [facility], Workstation: [id number], 12/26/2024 10:39 AM
--- NOTE | 2024-12-26 11:05 | OP ---
OPERATIVE REPORT DATE OF SERVICE : 12/26/2024 WAREHOUSE EXAMINER: Celso Benavides PA-C. PREOPERATIVE DIAGNOSIS: Right shoulder advanced rotator cuff arthropathy. POSTOPERATIVE DIAGNOSIS: Right shoulder advanced rotator cuff arthropathy. PROCEDURE PERFORMED: Right reverse total shoulder arthroplasty. ANESTHESIA: General endotracheal. ESTIMATED BLOOD LOSS: 100 mL. DRAINS: None. COMPLICATIONS: None apparent. DISPOSITION: Postanesthesia care unit. INDICATIONS: The patient is a very pleasant 69-year-old female with longstanding right shoulder pain. Workup including x-rays, MRI, and physical exam revealed advanced right shoulder rotator cuff arthropathy. At this point, it is felt that she has failed conservative management. She would like to proceed with operative intervention. Risks of procedure were discussed with her in detail. These risks include but are not limited to risk of infection, nerve damage, bleeding, pain, instability in the shoulder, loosening of the implants, and deep infection. There is also small risk of deep vein thrombosis which could lead to fatal pulmonary embolism. The patient understood these risks. All of her questions with regard to the risks of procedure were answered to her satisfaction. An appropriate informed consent was obtained. DESCRIPTION OF THE PROCEDURE: The patient was identified in preoperative holding area. Surgical site was marked by both the patient and myself. She was given 2 g of Ancef IV for prophylactic purposes. She was then transported to the operative suite. She was then placed supine on the operating room table. General anesthetic was administered and dosed per the Anesthesia department without apparent complication. Examination under anesthesia was then performed of the right shoulder. Elevation was 120 degrees. External rotation at that side was 30 degrees. The patient was then placed in the beach chair position well-padded in preparation for surgery. Great care was taken to ensure that her cervical spine was in neutral alignment well-padded and maintained that way throughout the operative procedure. Great care was also taken to ensure that her legs were appropriately padded as well. The patient's right upper extremity was then prepped and draped in usual sterile fashion. Standard surgical pause undertaken to ensure that we were operating the correct site and that appropriate preoperative antibiotics were given. All staff were in agreement, and we proceeded. The acromion AC joint clavicle and coracoid were marked with a surgical pen. A planned incision starting at the level of the clavicle and extending distally over the deltopectoral interval approximately 1 cm lateral to the coracoid was marked with a surgical pen. The incision was then made with a 10-blade scalpel. Dissection was carried down sharply to the deltoid fascia. The deltopectoral interval was then identified at the level of clavicle. A small band retractor was then placed onto the proximal deltoid. I then released the deltoid fascia on the lateral aspect of the cephalic vein. The vein was then left in its bed medially. The cephalic vein was preserved and protected throughout the entire case. I then identified the clavipectoral fascia. This was incised proximally to the level of the coracoacromial ligament. The coracoacromial ligament was left intact. We then used my finger to spread the interval between the conjoint tendon on the subscapularis. I felt for the axillary nerve which was readily palpable. I then cleared the subacromial and subdeltoid spaces of bursal and scar tissue. I then used a Brown retractor to hold the deltoid and expose the humeral head. The greater tuberosity was completely devoid of any rotator cuff attachment. She had a complete retracted tear of the supraspinatus and infraspinatus. The subscapularis was intact. The anterior capsule was then released in a lazy-S anterior capsule and the subscapularis released in a lazy-S type fashion approximately 1 cm medial to the bicipital groove. 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 The long head of the biceps tendon was absent from the groove. I then continued to release the capsule inferiorly. This was done along the inferior neck in a vertical fashion at approximately the 6 o'clock position. Great care was taken to ensure the capsule was always visualized as it was released as to avoid injuring the axillary nerve. I then brought a Ignacio junior network administrator with the arm externally rotated and abducted. Continue release the capsule inferomedially to approximately the 4 o'clock position. I then proceeded with preparation of the humerus. I removed all the goat's waggoner osteophytes. I then removed the subchondral plate from the superior aspect of the humeral head. This was done utilizing a large rongeur. I then used a starting reamer to gain access to the humeral canal. This was approximately 1 cm medial to the prior rotator cuff insertion and 1 cm posterior to the bicipital groove. I then prepared the humeral canal with hand reaming. I started with a 6 mm reamer and incrementally increased until firm resistance was encountered at 9 mm. The reamer handle was then left in place. I then utilized a humeral resection guide set at 30 degrees of retrotorsion. The cutting block was then set at the previous insertion of the rotator cuff. I then proceeded to osteotomize the head with an oscillating saw. I removed the resection guide to complete the osteotomy. The remaining goat's waggoner osteophytes were then removed using a rongeur. I then proceeded with trial stem placement. The trial size 9 broach was then broached into the canal starting with a 6 mm broach and incrementally increasing till we got to the 9 mm broach. The 9 mm trial broach was then left in place. I then proceeded with preparation of the glenoid. Again, she had massive chronic rotator cuff tear. We proceeded to reverse total shoulder arthroplasty. A Bhattman retractor was then placed on the posterior glenoid rim. The arm was then placed in approximately 80 degrees of abduction and in slight flexion on the Ignacio stand. I then proceeded to remove the hypertrophic labrum to definitively identify the actual glenoid. I then used a mini base plate guide. This was placed just slightly inferior to central on the glenoid. The starting pin was then inserted with approximately 10 degrees of inferior tilt. I then proceeded to ream in the glenoid. I utilized the mini base plate reamer. I was very careful to do as minimal reaming as possible to preserve as much subchondral bone as possible. I then used the small offset guide. This was oriented posterior superiorly. The fit flush with the glenoid. I then had the authorization representative open a [employer] mini base plate with a small augment. This was then inserted with the starting pin with the augment oriented posterior superiorly and then impacted into the glenoid. The starting pin was then removed. I then measured for the length of the central screw. A 25 mm central screw was then measured. I placed a 25 mm central screw. This screw had an excellent purchase in bone. When it was firmly seated, I was able to rotate the scapula through the screwdriver. I then proceeded with placement of the peripheral locking screws. All 4 peripheral locking screws were 15 mm screws. I then proceeded to place a 36 mm glenosphere, it was very minimally offset inferiorly. The Meyer taper was dried and the real glenosphere was then impacted onto the mini base plate. Then, I ensured that the glenosphere was fully stayed seated and secured and it was. We then proceeded with trial reduction. It was started with a standard tray and a standard poly. It was a mildly difficult reduction. The shoulder was very stable throughout a full range of motion once it was reduced. There was no impingement noted. I made a decision to proceed with the standard tray and standard poly. The shoulder was then carefully re-dislocated. The wound was then thoroughly irrigated with sterile saline solution with antibiotic added via pulse lavage. I also used the IrriSept antiseptic solution at this point. I then had the authorization representative open a [employer] size 9 mini stem, a standard tray and a standard poly for 36 mm glenosphere. The real stem was then impacted in the proximal humerus in approximately 30 degrees of retrotorsion. She was fairly osteoporotic. I used some bone graft from the osteotomized humeral head to pack around the proximal aspect of the stem. The Meyer taper was then dried in the standard tray and standard poly was then impacted onto the real stem. The shoulder was again carefully reduced. Again, it was a mildly difficult reduction. It was very stable throughout a range of motion. There was no undue tension to the conjoint tendon. I felt for the axillary nerve at this time. This was readily palpable and seemingly uninjured. I then proceeded with closure. The wound was again thoroughly irrigated. We used the remaining IrriSept antiseptic solution at this point. Approximately 500 mg of vancomycin powder was then placed deep. The deltopectoral interval was then reapproximated with 0 Vicryl interrupted suture. The subcutaneous tissues were then again irrigated and the remaining 500 mg of vancomycin powder was placed subcutaneously. Subcutaneous tissue was then closed with 2-0 Vicryl interrupted suture and the skin was closed with a running 3-0 Quill suture. Dermabond was applied to the incision. Sterile dressing was applied. The patient's right upper extremity was placed into a standard sling. All sponge and needle counts were deemed correct prior to closure. The patient tolerated the procedure without apparent complication. She was transferred to the recovery room in stable condition. MMODL / IJN: [id number] /
[2024-12-26] MEDS ORDERED: CALCIUM CARBONATE 500 MG CHEWABLE PO PRN (12:49)
[2024-12-26] MEDS: SPIRONOLACTONE 25 MG TAB PO SCH (14:29)
[2024-12-26] MEDS: VIT A,C & E-LUTEIN-MINERALS 1 EACH TAB PO SCH (14:29)
[2024-12-26] MEDS: PANTOPRAZOLE 40 MG TABLET PO SCH (14:29)
[2024-12-26] MEDS: ceFAZolin 2 GM in DEXTROSE 5% IN WATER 50 ML IVPB SCH (16:41)
--- NOTE | 2024-12-26 18:32 | P.ANPRN ---
Procedure Note - Anesthesia - Nerve Block Performed Right Interscalene Single Time Out Performed: Yes Date of Procedure: 12/26/24 Procedure Start Time: 06:58 Procedure Stop Time: 07:00 Location of Patient: PreOp Indication: Acute Post-Operative Pain, Requested by Surgeon Sedation Type: Sedate with meaningful contact maintained Preparation: Sterile Prep Position: Supine Needle Types: Pajunk Needle Gauge: 21 Ultrasound used to visualize needle placement: Yes Ultrasound used to observe medication spread: Yes Blood Aspirated: No Pain Paresthesia on Injection Noted: No Resistance on Injection: Normal Image Stored and Saved: Yes Events: Uneventful and Well Tolerated (Ropivacaine 0.5% 20 cc plus dexamethasone 4 mg)
--- NOTE | 2024-12-26 18:38 | P.CONS ---
History of Present Illness - Reason for Consult Consult date: 12/26/24 Medical management - Chief Complaint Right shoulder arthroplasty - History of Present Illness Patient is a 69-year-old female with a past medical history of liver cirrhosis/past EtOH abuse/ascites last paracentesis in 2019, hypertension, dumping syndrome after bariatric surgery, history of stress incontinence, prior history of smoking and alcohol use disorder. Patient was admitted to hospital for elective right shoulder reverse total arthroplasty due to advanced rotator cuff arthropathy. Patient just got from surgery. States that she could not feel her right arm. Otherwise no complaints of nausea or vomiting. Currently on 2 L oxygen via nasal cannula. Patient otherwise denied any complaints of chest pain or shortness of breath. No cough or sputum production. No fever no chills. Laboratory data is not involved at this time. Review of Systems Constitutional: Patient denies any fever or chills . No generalized weakness or weight loss. Abdomen: Patient denied nausea vomiting and diarrhea and abdominal pain. Cardiovascular: Patient denies any chest pain or short of breath no palpitations. Respiratory: patient denied any cough or sputum production. No shortness of breath Neurologic: Patient denied any numbness or tingling. no headache. Musculoskeletal: Patient denies any complaints of joint swelling or deformity. Skin: Negative Psychiatric: Negative Endocrine: No heat or cold intolerance. No recent weight gain. Genitourinary: No dysuria or hematuria. All other 14 point ROS negative except the above Past Medical History Past Medical History: CVA/TIA, Fibromyalgia, GERD/Reflux, Osteoarthritis (OA), Thyroid Disorder Additional Past Medical History / Comment(s): "Blocked artery, had heart cath Monday." Abdominal hernia. Liver cirrhosis/past etoh abuse/ascities with paracentesis every 6 weeks, fluid retention from waist down, last parcentesis 2019. Hx TIA X3- slight memory issues-now resolved. Hypotension, past dumping syndrome after bariatric surgery, stress urine incontinence, hx UTI, hemorrhoids. Hx sepsis X2, one after gallbladder removed, gallbladder was ruperto ched to liver, liver was cut, second time was after bowel resection. History of Any Multi-Drug Resistant Organisms: None Reported Year Discovered:: 01/06/22 MDRO Source:: Abd incision Past Surgical History: Bariatric Surgery, Bowel Resection, Cholecystectomy, Hernia Repair, Hysterectomy, Orthopedic Surgery, Tubal Ligation Additional Past Surgical History / Comment(s): GASTRIC BYPASS, PAIN CLINIC PROCEDURE, C3-C7 fusions, colonoscopy, bowel obtruction 12/2021 with surgery. Lower back surgery-laminectomy Past Anesthesia/Blood Transfusion Reactions: No Reported Reaction Additional Past Anesthesia/Blood Transfusion Reaction / Comm: REQUIRES ABOVE AVERAGE LIDOCAINE DOSE, RESISTANT TO LOCAL ANESTHESIA. Unsure if she has ever had a blood transfusion. Past Psychological History: No Psychological Hx Reported Additional Psychological History / Comment(s): Pt resides alone. She limits her driving. She has a poly packer and heat sealer every 2 weeks. Her daughter in law is helpful but works alot of hours. Smoking Status: Former smoker Past Alcohol Use History: None Reported Additional Past Alcohol Use History / Comment(s): Started smoking in 1965 and quit in 1980. Smoked 2 ppd. Pt used to drink red wine heavily but has not had any alcohol since 03/14/21. Past Drug Use History: None Reported - Past Family History Brother(s) Family Medical History: Cancer Additional Family Medical History / Comment(s): Lung cancer. Father Family Medical History: Diabetes Mellitus, Myocardial Infarction (OR) Additional Family Medical History / Comment(s): Father is . Mother Family Medical History: Cancer, Myocardial Infarction (OR) Additional Family Medical History / Comment(s): Breast cancer. Medications and Allergies Home Medications Medication Instructions Recorded Confirmed Type Multivitamin [Multivitamins Adult 1 tab PO QAM 03/15/21 12/26/24 History Gummies] rOPINIRole HCL [Requip] 0.5 mg PO HS PRN 06/19/21 12/26/24 History Folic Acid 0.4 mg PO QAM 12/29/21 12/26/24 History Ferrous Sulfate [Iron] 325 mg PO QAM 12/21/22 12/26/24 History Cyanocobalamin (Vitamin B-12) 2 tab PO QAM 06/22/23 12/26/24 History [Vitamin B-12] Calcium Carbonate [Tums] 1,000 mg PO QID PRN tab 10/09/23 12/26/24 Rx Cholecalciferol (Vitamin D3) 50 mcg PO QAM 12/20/24 12/26/24 History [Vitamin D3 (50 Mcg = 2000 Iu)] Ibuprofen [Motrin] 600 mg PO Q8HR PRN 12/20/24 12/26/24 History Pantoprazole [Protonix] 40 mg PO AC-BRKFST PRN 12/20/24 12/26/24 History Spironolactone [Aldactone] 25 mg PO QAM 12/20/24 12/26/24 History Vit C/E/Zn/Coppr/Lutein/Zeaxan 1 each PO BID 12/20/24 12/26/24 History [Preservision Areds 2 Softgel] Allergies Allergy/AdvReac Type Severity Reaction Status Date / Time acetaminophen AdvReac Unknown Verified 12/26/24 06:14 IV dye AdvReac "Flushed Uncoded 12/26/24 06:14 and nauseated" Physical Exam Vitals: Vital Signs Temp Pulse Pulse Resp BP Pulse Ox 12/26/24 11:57 78 110/67 94 L 12/26/24 11:42 76 108/70 94 L 12/26/24 11:27 66 107/68 93 L 12/26/24 11:12 69 109/67 93 L 12/26/24 10:57 79 105/69 93 L 12/26/24 10:42 81 99/67 94 L 12/26/24 10:27 97.5 F L 74 16 107/71 94 L 12/26/24 10:03 71 14 113/68 94 L 12/26/24 09:45 72 16 125/63 94 L 12/26/24 09:30 74 14 121/65 95 12/26/24 09:15 97.1 F L 84 16 123/77 95 12/26/24 07:06 66 12 115/77 98 12/26/24 06:20 97.5 F L 76 16 113/57 97 Intake and Output 12/25/24 12/26/24 12/26/24 22:59 06:59 14:59 Intake Total 300 351 Output Total 100 Balance 300 251 Intake: IV 300 351 Output: Estimated Blood Loss 100 Other: Weight 82.1 kg 82.1 kg PHYSICAL EXAMINATION: Patient is lying in the bed comfortably, no acute distress, awake alert and oriented.. HEENT: Normocephalic. Neck is supple. Pupils reactive. Nostrils clear. Oral cavity is moist. Neck reveals no JVD, carotid bruits, or thyromegaly. CHEST EXAMINATION: Trachea is central. Symmetrical expansion. Bibasilar diminished sounds otherwise lung sandra clear to auscultation and percussion. CARDIAC: Normal S1, S2 with no gallops. No murmurs ABDOMEN: Soft. Bowel sounds normal. No organomegaly. No abdominal bruits. Extremities: reveal no edema. No clubbing or cyanosis Neurologically awake, alert, oriented x3 with well-coordinated movements. No focal deficits noted Skin: No rash or skin lesions. Psychiatric: Coperative. Nonsuicidal Musculoskeletal: No joint swelling or deformity. Right shoulder surgical site bandaged. Sling in place. Assessment and Plan Assessment: Status post right total shoulder arthroplasty postoperative day 0 History of CVA/TIA with slight memory issues. Fibromyalgia GERD/reflux Osteoarthritis History of liver cirrhosis with past EtOH disorder and ascites. Last paracentesis was in 2019. History of bariatric surgery history of dumping syndrome Prior history of smoking GI prophylaxis PPI DVT prophylaxis as per primary team Plan: Patient will be started back on home medications including spironolactone. Continue pain management, bowel regimen and encourage incentive spirometry. Continue to follow closely. follow-up TSH,. CBC and BMP. Further recommendations based on the clinical course. Thank you kindly for your consult. Time with Patient: Greater than 30
[2024-12-27] MEDS: HYDROmorphone 0.5 MG/0.5 ML SYRINGE IVP PRN (01:49)
[2024-12-27] MEDS: CHOLECALCIFEROL 25 MCG (1000 IU) TABLET PO SCH (07:49)
[2024-12-27] MEDS: FOLIC ACID 1 MG TAB PO SCH (07:49)
[2024-12-27] MEDS: FERROUS SULFATE 325 MG TAB PO SCH (07:49)
[2024-12-27] MEDS: MULTIVITAMINS, THERA 1 EACH TAB PO SCH (07:49)
[2024-12-27] MEDS: CYANOCOBALAMIN 500 MCG TAB PO SCH (07:49)
[2024-12-27 08:14] LABS: Basophils # (A) 0.02 X 10*3/uL (0.00-0.10); Basophils % (A) 0.3 %; Eosinophils # (A) 0.06 X 10*3/uL (0.04-0.35); Eosinophils % (A) 0.9 %; HCT 36.9 % (37.2-46.3); HGB 11.8 g/dL (12.0-15.0); Lymphocytes # (A) 1.39 X 10*3/uL (0.90-5.00); Lymphocytes % (A) 20.6 %; MCH 28.4 pg (27.0-32.0); MCV 88.7 FL (80.0-97.0); Mean Platelet Volume 11.4 FL (9.5-12.2); Monocytes % (A) 13.4 %; NRBC Per 100 WBC 0 X 10*3/uL (0.00-0.01); Neutrophils # (A) 4.35 X 10*3/uL (1.80-7.70); Neutrophils % (A) 64.5 %; Platelet Count 132 X 10*3/uL (140-440); RBC 4.16 X 10*6/uL (4.10-5.20); RDW 17.7 % (11.5-14.5); WBC 6.74 X 10*3/uL (4.50-10.00)
[2024-12-27 08:37] LABS: BUN/Creat Ratio 15.12 Ratio (12.00-20.00); Blood Urea Nitrogen 12.1 mg/dL (9.0-27.0); Calcium 8.7 mg/dL (8.7-10.3); Carbon Dioxide 25.5 mmol/L (21.6-31.8); Chloride 106 mmol/L (96-109); Glucose 108 mg/dL (70-110); Potassium 4.3 mmol/L (3.5-5.5); Sodium 140 mmol/L (135-145)
[2024-12-27] MEDS ORDERED: HYDROmorphone 0.5 MG/0.5 ML SYRINGE IVP PRN (13:37)
[2024-12-27] MEDS: HYDROmorphone 2 MG/ML 1 ML SYRINGE IVP PRN (14:05)
--- NOTE | 2024-12-27 15:55 | P.PN ---
Subjective Progress Note Date: 12/27/24 Principal diagnosis: Right shoulder reverse TSA Patient is seen at bedside this morning. She is postop day #1 from Right shoulder reverse TSA arthroplasty. SHe has pain at the surgical site as expected but denies any new complaints. SHe denies numbness, tingling or calf pain. Review of systems is negative for fever, chills, chest pain, shortness of breath or other Objective - Vital Signs Vital signs: Vital Signs Temp 99.0 F 12/27/24 14:23 Pulse 84 12/27/24 14:23 Resp 20 12/27/24 14:23 BP 98/61 12/27/24 14:23 Pulse Ox 92 L 12/27/24 14:23 FiO2 Intake & Output 12/26/24 12/27/24 12/27/24 18:59 06:59 18:59 Intake Total 751 240 460 Output Total 100 Balance 651 240 460 Weight 82.1 kg Intake: IV 351 10 Invasive Line 2 10 Oral 400 240 450 Output: Estimated Blood Loss 100 Other: Voiding Method Toilet Toilet # Voids 2 3 - Exam Inspection reveals a benign surgical wound. There is no active bleeding or drainage. Neurovascular status is intact throughout the upper extremity with motor and sensation fully intact. Calf is soft and nontender. 2+ radial pulse and less than 2 second cap refill is present. - Constitutional General appearance: Present: no acute distress - Labs CBC & Chem 7: 12/27/24 03:22 12/27/24 03:22 Labs: Abnormal Lab Results - Last 24 Hours (Table) 12/27/24 Range/Units 03:22 Hgb 11.8 L (12.0-15.0) g/dL Hct 36.9 L (37.2-46.3) % RDW 17.7 H (11.5-14.5) % Plt Count 132 L (140-440) X 10*3/uL Assessment and Plan (1) Primary osteoarthritis, right shoulder Narrative/Plan: He will continue with routine postop orthopedic protocol including pain management, wound care, DVT prophylaxis and medical management. Expect that she will transfer to home tomorrow Current Visit: Yes Status: Acute Priority: Medium Code(s): M19.011 - PRIMARY OSTEOARTHRITIS, RIGHT SHOULDER SNOMED Code(s): 186281841059352 Time with Patient: Less than 30
[2024-12-28] MEDS: diphenhydrAMINE 25 MG CAP PO PRN ×2 (00:35→09:05)
[2024-12-28 07:25] VITALS: BP 106/68; PULSE 81; RESP 17; TEMP 99.1
[2024-12-28] MEDS: HYDROmorphone 0.5 MG/0.5 ML SYRINGE IVP PRN (09:20)
--- NOTE | 2024-12-28 10:07 | P.DS ---
Providers Date of admission: 12/27/24 13:46 Expected date of discharge: 12/28/24 Attending physician: Eric Terrazas Consults: 12/26/24 09:15 Consult Physician Routine Consulting Provider: Gilmer Barber Consult Reason/Comments: post op medical management Do you want consulting provider notified?: Yes Primary care physician: Stanton Camara MD - Discharge Diagnosis(es) (1) Status post total replacement of right shoulder Current Visit: Yes Status: Acute (2) Primary osteoarthritis, right shoulder Current Visit: Yes Status: Acute Priority: Medium Hospital Course: This is a 69-year-old female who has history of severe degenerative arthritis of the right shoulder and presented to discuss surgical options. After discussion and consideration the patient elects to proceed with total shoulder arthropla sty. The pt is seen preoperatively by their family physician and cleared for surgery. The patient is admitted to [facility] on 12/26/2024 for total right shoulder arthroplasty. She is doing well postoperatively. Vital signs and hemoglobin are stable. The pt is able to get up out of bed independently and is ambulating without assistance. Pain is well controlled. Patient is discharged to home on postoperative day # 2 in good condition. Please see med rec for accurate list of home medications. Patient Condition at Discharge: Good Plan - Discharge Summary Discharge Rx Participant: Yes New Discharge Prescriptions: New Doxycycline Hyclate 100 mg PO BID #10 tab hydrOXYzine pamoate [Vistaril] 25 mg PO Q4-6H PRN #30 capsule PRN Reason: Itching Docusate [Colace] 100 mg PO BID #60 capsule oxyCODONE HCL [oxyCODONE HCL (IR)] 10 mg PO Q6HR PRN 7 Days #28 tab PRN Reason: Pain Ondansetron [Zofran] 4 mg PO Q8HR PRN #21 tab PRN Reason: Nausea No Action Folic Acid 0.4 mg PO QAM Ferrous Sulfate [Iron] 325 mg PO QAM Cyanocobalamin (Vitamin B-12) [Vitamin B-12] 2 tab PO QAM Calcium Carbonate [Tums] 1,000 mg PO QID PRN tab PRN Reason: Heartburn Cholecalciferol (Vitamin D3) [Vitamin D3 (50 Mcg = 2000 Iu)] 50 mcg PO QAM Pantoprazole [Protonix] 40 mg PO AC-BRKFST PRN PRN Reason: acid reflux Vit C/E/Zn/Coppr/Lutein/Zeaxan [Preservision Areds 2 Softgel] 1 each PO BID Ibuprofen [Motrin] 600 mg PO Q8HR PRN PRN Reason: Pain Multivitamin [Multivitamins Adult Gummies] 1 tab PO QAM rOPINIRole HCL [Requip] 0.5 mg PO HS PRN PRN Reason: RLS Spironolactone [Aldactone] 25 mg PO QAM Discharge Medication List Multivitamin [Multivitamins Adult Gummies] 1 tab PO QAM 03/15/21 [History] rOPINIRole HCL [Requip] 0.5 mg PO HS PRN 06/19/21 [History] Folic Acid 0.4 mg PO QAM 12/29/21 [History] Ferrous Sulfate [Iron] 325 mg PO QAM 12/21/22 [History] Cyanocobalamin (Vitamin B-12) [Vitamin B-12] 2 tab PO QAM 06/22/23 [History] Calcium Carbonate [Tums] 1,000 mg PO QID PRN tab 10/09/23 [Rx] Cholecalciferol (Vitamin D3) [Vitamin D3 (50 Mcg = 2000 Iu)] 50 mcg PO QAM 12/20/24 [History] Ibuprofen [Motrin] 600 mg PO Q8HR PRN 12/20/24 [History] Pantoprazole [Protonix] 40 mg PO AC-BRKFST PRN 12/20/24 [History] Spironolactone [Aldactone] 25 mg PO QAM 12/20/24 [History] Vit C/E/Zn/Coppr/Lutein/Zeaxan [Preservision Areds 2 Softgel] 1 each PO BID 12/20/24 [History] Docusate [Colace] 100 mg PO BID #60 capsule 12/27/24 [Rx] Doxycycline Hyclate 100 mg PO BID #10 tab 12/27/24 [Rx] Ondansetron [Zofran] 4 mg PO Q8HR PRN #21 tab 12/27/24 [Rx] oxyCODONE HCL [oxyCODONE HCL (IR)] 10 mg PO Q6HR PRN 7 Days #28 tab 12/27/24 [Rx] hydrOXYzine pamoate [Vistaril] 25 mg PO Q4-6H PRN #30 capsule 12/28/24 [Rx] Follow up Appointment(s)/Referral(s): [facility], [NON-STAFF] - As Needed Eric Terrazas MD [STAFF PHYSICIAN] - 10 Days Activity/Diet/Wound Care/Special Instructions: Non Weight Bearing Maintain sling May shower after 3 days if no bleeding Keep wound clean and dry Take meds as directed F/U with Dr. Terrazas in office Discharge Disposition: HOME SELF-CARE
== END 2024-12-28 12:41 | disposition home or self-care (01) | DRG 483 ==
LOC: OR 05:34 → 4SSUR 09:08 → OR 12-27 13:46 → 4SSUR 12-27 13:46
PROVIDERS: ADMIT Orthopaedic Surgery Sports Medicine; ATTEND Orthopaedic Surgery Sports Medicine
PROC: 0RRJ00Z Replacement of Right Shoulder Joint with Reverse Ball and Socket Synthetic Substitute, Open Approach (ICD-10-PCS; principal; 2024-12-26 07:30)
DX: M19.011 Primary osteoarthritis, right shoulder (principal); I69.311 Memory deficit following cerebral infarction; K70.30 Alcoholic cirrhosis of liver without ascites; I10 Essential (primary) hypertension; F10.10 Alcohol abuse, uncomplicated; G25.81 Restless legs syndrome; G47.00 Insomnia, unspecified; K91.1 Postgastric surgery syndromes; N39.3 Stress incontinence (female) (male); I95.9 Hypotension, unspecified; M54.30 Sciatica, unspecified side; K21.9 Gastro-esophageal reflux disease without esophagitis; M79.7 Fibromyalgia; Z87.440 Personal history of urinary (tract) infections; Z87.891 Personal history of nicotine dependence; Z98.84 Bariatric surgery status; Z60.2 Problems related to living alone; Z90.49 Acquired absence of other specified parts of digestive tract; Z86.19 Personal history of other infectious and parasitic diseases; Z98.1 Arthrodesis status; Z88.6 Allergy status to analgesic agent; Z91.041 Radiographic dye allergy status
CPT/HCPCS: 80048; 84443; 85025

== ENCOUNTER 2025-02-13 10:27 | Day surgery (SDC) | payer MEDICARE ==
[~2025-02-13 10:27] MED LIST changes: +HYDROmorphone 0.5 MG/0.5 ML SYRINGE IVP PRN; +LIDOCAINE 1% (10MG/ML) FOR IV START INTRADERMA PRN; +ONDANSETRON 4 MG/2 ML VIAL IVP PRN; +fentaNYL (PF) 50 MCG/ML 2 ML AMP IVP PRN
[2025-02-13] MEDS: IV FLUID CONTINUATION 1,000 ML IV ONE ×2 (11:02→14:53)
[2025-02-13] MEDS: LACTATED RINGERS 1,000 ML IV SCH ×2 (11:35→17:48)
[2025-02-13] MEDS: ONDANSETRON 4 MG/2 ML VIAL IVP ONE (11:35)
[2025-02-13] MEDS: DEXAMETHASONE SOD PHOSPHATE 4 MG/ML 1 ML VIAL IV ONE (11:35)
[2025-02-13] MEDS: GABAPENTIN 300 MG CAP PO PRN (11:36)
[2025-02-13] MEDS: MELOXICAM 7.5 MG TAB PO PRN (11:36)
[2025-02-13] MEDS: MIDAZOLAM 2 MG/2 ML VIAL IV PRN (12:09)
--- NOTE | 2025-02-13 12:18 | P.ANPRN ---
Procedure Note - Anesthesia - Nerve Block Performed Right Interscalene Single Time Out Performed: Yes (1208) Date of Procedure: 02/13/25 Location of Patient: PreOp Indication: Acute Post-Operative Pain, Dx/Pain Location (right shoulder), Requested by Surgeon Specifically requested for management of pain by DrTon: Eric Terrazas Sedation Type: Sedate with meaningful contact maintained Preparation: Sterile Prep, Sterile Dressing Position: Supine Catheter: None Needle Types: Pajunk Needle Gauge: 21 (4 inch) Ultrasound used to visualize needle placement: Yes Ultrasound used to observe medication spread: Yes Injectate: 0.5% Ropivacaine (see comment for volume) (30 cc and 4mg of decadron) Blood Aspirated: No Pain Paresthesia on Injection Noted: No Resistance on Injection: Normal Image Stored and Saved: Yes Events: Uneventful and Well Tolerated
[2025-02-13] MEDS ORDERED: SENNOSIDES-DOCUSATE SODIUM 1 EACH TAB PO PRN (12:48)
[2025-02-13] MEDS ORDERED: diphenhydrAMINE 25 MG CAP PO PRN (12:48)
[2025-02-13] MEDS ORDERED: ONDANSETRON 4 MG/2 ML VIAL IVP PRN (12:48)
[2025-02-13] MEDS ORDERED: HYDROmorphone 0.5 MG/0.5 ML SYRINGE IVP PRN ×2 (12:48)
[2025-02-13] MEDS ORDERED: PHENYLEPHRINE-0.9% NACL SYG 1,000 MCG/10 ML SYRINGE ONE (13:26)
[2025-02-13] MEDS ORDERED: LIDOCAINE 1% INJ 10MG/ML (20 ML MDV) ONE (13:26)
[2025-02-13] MEDS ORDERED: PROPOFOL 10 MG/ML 20 ML VIAL IV ONE (13:26)
[2025-02-13] MEDS ORDERED: TRANEXAMIC 1,000 MG/100ML-NACL PREMIX BAG ONE (13:26)
[2025-02-13] MEDS ORDERED: GLYCOPYRROLATE 0.2 MG/ML 2 ML VIAL ONE (13:26)
[2025-02-13] MEDS ORDERED: NEOSTIGMINE 1 MG/ML 10 ML VIAL ONE (13:26)
[2025-02-13] MEDS ORDERED: DEXAMETHASONE SOD PHOSPHATE 4 MG/ML 1 ML VIAL ONE (13:26)
[2025-02-13] MEDS ORDERED: PHENYLEPHRINE 10 MG/ML VIAL ONE (13:26)
[2025-02-13] MEDS ORDERED: SUCCINYLCHOLINE CHLORIDE 200 MG/10 ML VIAL IV ONE (13:26)
[2025-02-13] MEDS ORDERED: ROCURONIUM 10 MG/ML (5 ML VIAL) IV ONE (13:26)
[2025-02-13] MEDS ORDERED: ROPIVACAINE 5 MG/ML 30 ML VIAL ONE (13:26)
[2025-02-13] MEDS: ceFAZolin 2 GM in DEXTROSE 5% IN WATER 50 ML IVPB PRN (13:29)
[2025-02-13] MEDS: VANCOMYCIN 1,000 MG VIAL MISCELLANE ONE (14:02)
--- NOTE | 2025-02-13 15:34 | XR ---
EXAMINATION TYPE: XR shoulder limited RT DATE OF EXAM: 02/13/2025 COMPARISON: CT right shoulder January 28 9.55 CLINICAL INDICATION: Female, 69 years old with history of post op; pain. TECHNIQUE: Single view right shoulder is obtained immediately postoperatively FINDINGS: Interval replacement of prior metallic prosthesis with new single femoral metallic prosthes is. Alignment appears satisfactory on frontal view. Gas from recent surgery is seen surrounding the h ead of the prosthesis. IMPRESSION: As above [facility] Ashley Bain, , 02/13/2025 3:32 PM
--- NOTE | 2025-02-13 15:53 | OP ---
OPERATIVE REPORT DATE OF SERVICE : 02/13/2025 ADOBE LAYER: Celso Benavides PA-C. PREOPERATIVE DIAGNOSIS: Right failed glenosphere component secondary to scapular fracture. POSTOPERATIVE DIAGNOSIS: Right failed glenosphere component secondary to scapular fracture. PROCEDURE PERFORMED: 1. Right shoulder removal of glenosphere component, base plate component, and screws. 2. Right shoulder removal of humeral tray component. 3. Right shoulder revision to hemiarthroplasty. 4. Right shoulder allograft bone graft of glenoid defect. ESTIMATED BLOOD LOSS: 50 mL. ANESTHESIA: General endotracheal. DRAINS: None. COMPLICATIONS: None apparent. DISPOSITION: Postanesthesia care unit. INDICATIONS: Shyann is a very pleasant 69-year-old female who underwent a right reverse total shoulder arthroplasty for rotator cuff arthropathy by myself approximately 6 weeks ago. In followup, she started to note some lucency around the screws of the base plate on the glenoid. I did order a CT scan, which showed loosening of the base plate and glenosphere component with fracture of the scapula. I made a recommendation to remove the glenosphere and base plate along with the screws with probable bone grafting of the glenoid defect and conversion to a right shoulder hemiarthroplasty. Shyann would like to proceed with the operative intervention. Risks of procedure were discussed with her in detail. These risks include, but are not limited to risk of infection, nerve damage, bleeding, pain, instability in the shoulder and deep infection. There is also a very small risk of deep vein thrombosis, which could lead to fatal pulmonary embolism. The patient understood these risks. All of her questions with regard to the risks of procedure were answered to her satisfaction. Appropriate informed consent was obtained. DESCRIPTION OF PROCEDURE: The patient was identified in the preoperative holding area. Surgical site was marked by both the patient and myself. She was given 2 g of Ancef IV for prophylactic purposes. She was then transported to the operative suite. She was placed supine on the operating table. General anesthetic was administered and dosed per the Anesthesia Department without apparent complication. The patient was then placed into the beach chair position, well-padded in preparation for surgery. Great care was taken to ensure that her cervical spine was in neutral alignment, well-padded, and maintained that way throughout the operative procedure. Great care was also taken to ensure that her legs were appropriately padded as well. The patient's right upper extremity was then prepped and draped in usual sterile fashion. Standard surgical pause undertaken to ensure that we were operating the correct site and appropriate preoperative antibiotics were given. All staff in the room were in agreement, and we proceeded. The acromion AC joint, clavicle, and coracoid were marked with a surgical pen. A planned incision starting at the level of clavicle extending distally over the deltopectoral interval approximately 1 cm lateral to the coracoid was marked with a surgical pen. This was the previous incision, which was marked from her previous surgery. The incision was then reopened with a 10-blade scalpel. Dissection was carried down sharply to the deltoid fascia. She had quite a bit of scar tissue. The deltopectoral interval was identified at the level of the clavicle. A small band retractor was then placed onto the proximal deltoid. I then released the deltoid fascia on the lateral aspect of the cephalic vein. The vein was then left in its bed medially. The cephalic vein was protected throughout the entire case. She had significant scarring of the deltoid to the proximal humerus. Staying on bone and utilizing a small band retractor, I did lyse the adhesions and free the deltoid off the bone moving from anterior to posterior. I was then able to dislocate the shoulder. The shoulder was actually located. Once dislocated, I did use the device to remove the humeral tray. Once the tray was removed, I was able to access the glenosphere. The Bhattman retractor was then placed on the posterior glenoid rim. The arm was then placed approximately 80 degrees of abduction and in slight flexion on a Ignacio stand. I had excellent access to the glenosphere. It was a mildly loose. It certainly was not grossly loose. I did have to use the tuning fork type device to dissociate the glenosphere from the base plate. This was relatively easily done. I then had access to the base plate itself. I then began removing all of the screws from the base plate. The central screw was removed first. This was done without incident. The 4 peripheral locking screws were also removed without incident. I then was able to fairly easily remove the base plate from the glenoid. We then thoroughly irrigated the shoulder. There was a defect. The central boss defect centrally was not overly enlarged. There was some defect just inferior to the boss. I utilized a curette at this point to remove any fibrinous tissue from around the glenoid. The defect was fairly central in nature. I then made a decision to proceed with allograft bone graft of the glenoid defect. We then used allograft chips. These were then impacted into the central defect. I also impacted them into the trough inferior defect as well. A bone tamp was utilized to pack the allograft chips in tightly. I then again thoroughly irrigated the wound. We utilized a sterile saline solution with antibiotic added via pulse lavage around the soft tissues and we also used the IrriSept antiseptic solution as well. I then re-tamped the allograft chips to ensure that they were packed in tightly and we had a good volume of chips that fill the defect. I then proceeded with placing a humeral head component for hemiarthroplasty. The stem was originally put in 30 degrees of retrotorsion. It did not revise the stem at all. The Meyer taper was dried. I used a trial 38 x 19 x 39 head. This reduced fairly nicely and it was fairly stable once reduced. The head sit opposite to the glenoid. I then had the personal service representative open a 38 x 19 x 39 head. It was slightly offset to rotate posterior superiorly. This gave good coverage of the proximal humerus. The shoulder was then reduced. Again, the wound was thoroughly irrigated. I then proceeded to close the deltopectoral interval. This was closed with 0 Vicryl interrupted suture. Prior to closing the deltopectoral interval, the approximately 500 mg of vancomycin powder was placed deep. I then thoroughly irrigated this subcutaneous space. The remaining 500 mg of vancomycin powder was placed subcutaneously. The subcutaneous tissue closed with 2-0 Vicryl interrupted suture and the skin was closed with a running 3-0 Quill suture. Dermabond was applied to the incision. Sterile dressings were applied. The patient's right upper extremity placed in a standard sling. The postoperative plan would be to maintain Shyann in a sling and maintain the reduction of the hemiarthroplasty. The cavitary defect of the glenoid was bone grafted fairly well. We will allow the bone grafting to incorporate. With the plan, if Shyann was to choose someday returning and with a revision glenosphere again. Again, this would be if she were to choose to have any further surgery. MMODL / IJN: [id number] /
[2025-02-13] MEDS: ceFAZolin 2 GM in DEXTROSE 5% IN WATER 50 ML IVPB SCH (22:10)
[2025-02-14] MEDS: traMADol 50 MG TAB PO PRN (09:53)
[2025-02-14] MEDS ORDERED: PANTOPRAZOLE 40 MG TABLET PO PRN (10:35)
[2025-02-14] MEDS ORDERED: CALCIUM CARBONATE 500 MG CHEWABLE PO PRN (10:35)
[2025-02-14] MEDS: FERROUS SULFATE 325 MG TAB PO SCH (12:13)
[2025-02-14] MEDS: MULTIVITAMINS, THERA 1 EACH TAB PO SCH (12:14)
[2025-02-14] MEDS: SPIRONOLACTONE 25 MG TAB PO SCH (12:14)
[2025-02-14] MEDS: FOLIC ACID 1 MG TAB PO SCH (12:14)
--- NOTE | 2025-02-14 12:17 | P.CONS ---
History of Present Illness - Reason for Consult Consult date: 02/14/25 Medical management - History of Present Illness History of present illness; patient 69-year-old lady with past medical history significant for fibromyalgia, osteoarthritis, restless leg syndrome, hypothyroidism who presented to the hospital for revision reverse right total shoulder Alan arthroplasty. Patient has been following up outpatient with orthopedics for right shoulder pain. Patient had right reverse shoulder ar throplasty performed on. Patient continued to have increasing pain on follow-ups. Decision was made to proceed with surgery, patient underwent right shoulder removal of the glenosphere component, baseplate component and screws and right shoulder revision to hemiarthroplasty. Postoperatively internal medicine team were consulted for medical management REVIEW OF SYSTEMS: CONSTITUTIONAL: No fever, no malaise, no fatigue. HEENT: No recent visual problems or hearing problems. Denied any sore throat. CARDIOVASCULAR: No chest pain, orthopnea, PND, no palpitations, no syncope. PULMONARY: No shortness of breath, no cough, no hemoptysis. GASTROINTESTINAL: No diarrhea, no nausea, no vomiting, no abdominal pain. NEUROLOGICAL: No headaches, no weakness, no numbness. HEMATOLOGICAL: Denies any bleeding or petechiae. GENITOURINARY: Denies any burning micturition, frequency, or urgency. MUSCULOSKELETAL/RHEUMATOLOGICAL: Right shoulder pain ENDOCRINE: Denies any polyuria or polydipsia. The rest of the 14-point review of systems is negative. PHYSICAL EXAMINATION: GENERAL: The patient is alert and oriented x3, not in any acute distress. Well developed, well nourished. HEENT: Pupils are round and equally reacting to light. EOMI. No scleral icterus. No conjunctival pallor. Normocephalic, atraumatic. No pharyngeal erythema. No thyromegaly. CARDIOVASCULAR: S1 and S2 present. No murmurs, rubs, or gallops. PULMONARY: Chest is clear to auscultation, no wheezing or crackles. ABDOMEN: Soft, nontender, nondistended, normoactive bowel sounds. No palpable organomegaly. MUSCULOSKELETAL: Right shoulder sling seen EXTREMITIES: No cyanosis, clubbing, or pedal edema. NEUROLOGICAL: Gross neurological examination did not reveal any focal deficits. SKIN: No rashes. Assessment and plan Right shoulder pain status post right shoulder removal of the glenosphere component, baseplate component and screws and right shoulder revision to hemiarthroplasty History of anemia history of hypertension Monitor vital signs Monitor CBC Status post right shoulder removal of the glenosphere component, baseplate component and screws and right shoulder revision to hemiarthroplasty Continue pain management per orthopedics Continue DVT prophylaxis per orthopedics Aggressive bowel regimen to prevent opioid-induced constipation Resume home meds PT and OT consulted Labs and medication were reviewed.. Continue same treatment. Continue with symptomatic treatment. Resume home medication. Monitor labs and vitals. DVT and GI prophylaxis. Further recommendations as per clinical course of the patient Dictation was produced using [employer] dictation software. please excuse any grammatical, word or spelling errors. Past Medical History Past Medical History: CVA/TIA, Fibromyalgia, GERD/Reflux, Osteoarthritis (OA), Thyroid Disorder Additional Past Medical History / Comment(s): Abdominal hernia. Liver cirrhosis/past etoh abuse/ascities with paracentesis every 6 weeks, fluid retention from waist down, last parcentesis 2019. Hx TIA X3. Hypotension, past dumping syndrome after bariatric surgery, stress urine incontinence, hx UTI, hemorrhoids. Hx sepsis X2, one after gallbladder removed, gallbladder was attached to liver, liver was cut, second time was after bowel resection. History of Any Multi-Drug Resistant Organisms: None Reported Year Discovered:: 01/06/22 MDRO Source:: Abd incision Past Surgical History: Bariatric Surgery, Bowel Resection, Cholecystectomy, Hernia Repair, Hysterectomy, Joint Replacement, Orthopedic Surgery, Tubal Ligation Additional Past Surgical History / Comment(s): GASTRIC BYPASS, PAIN CLINIC PROCEDURE, C3-C7 fusions, colonoscopy, bowel obstruction 12/2021 with surgery. right shoulder arthroplasty December 2024. Past Anesthesia/Blood Transfusion Reactions: No Reported Reaction Additional Past Anesthesia/Blood Transfusion Reaction / Comm: REQUIRES ABOVE AVERAGE LIDOCAINE DOSE, RESISTANT TO LOCAL ANESTHESIA. Past Psychological History: No Psychological Hx Reported Additional Psychological History / Comment(s): Pt resides alone. She limits her driving. She has a associate professor of communication every 2 weeks. Her daughter in law is helpful but works alot of hours. Smoking Status: Former smoker Past Alcohol Use History: None Reported Additional Past Alcohol Use History / Comment(s): Started smoking in 1965 and quit in 1980. Pt used to drink red wine heavily but has not had any alcohol since 03/14/21. Past Drug Use History: None Reported - Past Family History Brother(s) Family Medical History: Cancer Additional Family Medical History / Comment(s): Lung cancer. Father Family Medical History: Diabetes Mellitus, Myocardial Infarction ([place]) Additional Family Medical History / Comment(s): Father is . Mother Family Medical History: Cancer, Myocardial Infarction ([place]) Additional Family Medical History / Comment(s): Breast cancer. Medications and Allergies Home Medications Medication Instructions Recorded Confirmed Type Multivitamin [Multivitamins Adult 1 tab PO QAM 03/15/21 02/13/25 History Gummies] rOPINIRole HCL [Requip] 0.5 mg PO HS PRN 06/19/21 02/13/25 History Folic Acid 0.4 mg PO QAM 12/29/21 02/13/25 History Ferrous Sulfate [Iron] 325 mg PO QAM 12/21/22 02/13/25 History Cyanocobalamin (Vitamin B-12) 2 tab PO QAM 06/22/23 02/13/25 History [Vitamin B-12] Calcium Carbonate [Tums] 1,000 mg PO QID PRN tab 10/09/23 02/13/25 Rx Cholecalciferol (Vitamin D3) 50 mcg PO QAM 12/20/24 02/13/25 History [Vitamin D3 (50 Mcg = 2000 Iu)] Pantoprazole [Protonix] 40 mg PO AC-BRKFST PRN 12/20/24 02/13/25 History Spironolactone [Aldactone] 25 mg PO QAM 12/20/24 02/13/25 History Vit C/E/Zn/Coppr/Lutein/Zeaxan 1 each PO BID 12/20/24 02/13/25 History [Preservision Areds 2 Softgel] Ibuprofen [Motrin] 800 mg PO Q6H PRN 02/11/25 02/13/25 History traMADol HCL 50 mg PO Q6H PRN 02/11/25 02/13/25 History Allergies Allergy/AdvReac Type Severity Reaction Status Date / Time acetaminophen AdvReac Unknown Verified 02/13/25 11:07 IV dye AdvReac "Flushed Uncoded 02/13/25 11:07 and nauseated" Physical Exam Vitals: Vital Signs Temp Pulse Pulse Pulse Resp BP Pulse Ox 02/14/25 07:07 97.4 F L 65 17 97/66 95 02/14/25 02:23 72 114/67 95 02/14/25 01:34 98.3 F 83 17 87/52 91 L 02/13/25 18:51 97.7 F 64 17 104/67 02/13/25 17:46 97.9 F 85 20 113/76 93 L 02/13/25 16:54 74 16 118/78 97 02/13/25 16:39 91 12 107/70 96 02/13/25 16:24 71 12 105/68 92 L 02/13/25 16:09 67 13 105/71 91 L 02/13/25 15:54 72 12 112/81 91 L 02/13/25 15:39 86 13 121/85 91 L 02/13/25 15:24 80 13 132/88 95 02/13/25 15:09 97 F L 85 11 L 141/80 94 L 02/13/25 12:45 71 16 124/74 98 02/13/25 12:30 60 16 104/71 98 02/13/25 12:21 64 16 102/66 96 02/13/25 11:15 97.5 F L 67 16 80/61 94 L FiO2 02/14/25 07:07 02/14/25 02:23 02/14/25 01:34 02/13/25 18:51 02/13/25 17:46 02/13/25 16:54 02/13/25 16:39 02/13/25 16:24 02/13/25 16:09 02/13/25 15:54 02/13/25 15:39 02/13/25 15:24 02/13/25 15:09 02/13/25 12:45 36 02/13/25 12:30 39 02/13/25 12:21 43 02/13/25 11:15 Intake and Output 02/13/25 02/14/25 02/14/25 22:59 06:59 14:59 Intake Total 200 Balance 200 Intake: IV 200 Other: Voiding Method Toilet # Voids 1 3 Weight 76 kg
[2025-02-14 15:38] LABS: Basophils # (A) 0.02 X 10*3/uL (0.00-0.10); Basophils % (A) 0.3 %; Eosinophils # (A) 0.07 X 10*3/uL (0.04-0.35); Eosinophils % (A) 1.1 %; HCT 37.4 % (37.2-46.3); HGB 12.1 g/dL (12.0-15.0); Lymphocytes # (A) 1.44 X 10*3/uL (0.90-5.00); Lymphocytes % (A) 22.2 %; MCH 29.7 pg (27.0-32.0); MCHC 32.4 g/dL (32.0-37.0); MCV 91.9 FL (80.0-97.0); Mean Platelet Volume 11.6 FL (9.5-12.2); Monocytes # (A) 0.74 X 10*3/uL (0.20-1.00); Monocytes % (A) 11.4 %; NRBC Per 100 WBC 0 X 10*3/uL (0.00-0.01); Neutrophils # (A) 4.21 X 10*3/uL (1.80-7.70); Neutrophils % (A) 64.7 %; Platelet Count 171 X 10*3/uL (140-440); RBC 4.07 X 10*6/uL (4.10-5.20); RDW 14.1 % (11.5-14.5)
--- NOTE | 2025-02-14 16:03 | P.PN ---
Subjective Progress Note Date: 02/14/25 Principal diagnosis: Revision Right TSA, removal hardware, hemiarthroplasty Patient is seen at bedside this morning. She is postop day #1 from Revision Right TSA, removal hardware, and hemiarthroplasty. She has minimal pain at the surgical site as expected but denies any new complaints. She denies numbness, tingling or calf pain. Review of systems is negative for fever, chills, chest pain, shortness of breath or other Objective - Vital Signs Vital signs: Vital Signs Temp 97.4 F L 02/14/25 07:07 Pulse 65 02/14/25 07:07 Resp 17 02/14/25 07:07 BP 97/66 02/14/25 07:07 Pulse Ox 95 02/14/25 07:07 FiO2 36 02/13/25 12:45 Intake & Output 02/13/25 02/14/25 02/14/25 18:59 06:59 18:59 Intake Total 1550 Balance 1550 Weight 76 kg Intake: IV 1550 Other: Voiding Method Toilet # Voids 1 3 - Exam Inspection reveals a benign surgical wound. There is no active bleeding or drainage. Neurovascular status is intact throughout the upper extremity with motor and sensation fully intact. Calves are soft and nontender. 2+ radial pulse and less than 2 second cap refill is present. - Constitutional General appearance: Present: no acute distress - Labs CBC & Chem 7: 02/14/25 06:25 Assessment and Plan (1) Status post total replacement of right shoulder Narrative/Plan: She will continue with routine postop orthopedic protocol including pain management, wound care, DVT prophylaxis and medical management. Expect that she will transfer to home tomorrow Current Visit: No Status: Acute Priority: Medium Code(s): Z96.611 - PRESENCE OF RIGHT ARTIFICIAL SHOULDER JOINT SNOMED Code(s): 416464774 Time with Patient: Less than 30
[2025-02-14] MEDS: ceFAZolin 2 GM in DEXTROSE 5% IN WATER 50 ML IVPB SCH (17:08)
[2025-02-14] MEDS: HYDROmorphone 0.5 MG/0.5 ML SYRINGE IVP PRN (19:47)
[2025-02-14] MEDS: VIT A,C & E-LUTEIN-MINERALS 1 EACH TAB PO SCH (19:48)
[2025-02-15] MEDS: CYANOCOBALAMIN 500 MCG TAB PO SCH (07:19)
[2025-02-15] MEDS: CHOLECALCIFEROL 25 MCG (1000 IU) TABLET PO SCH (07:20)
--- NOTE | 2025-02-15 08:15 | P.PN ---
Subjective Progress Note Date: 02/15/25 Patient is seen at bedside this morning. She is postop day #2 from Revision Right TSA, removal hardware, and hemiarthroplasty. She has right shoulder pain and pain at the surgical site as expected but denies any new complaints. She denies numbness, tingling or calf pain. Review of systems is negative for fever, chills, chest pain, shortness of breath or other. Objective - Vital Signs Vital signs: Vital Signs Temp 97.8 F 02/15/25 02:39 Pulse 80 02/15/25 02:39 Resp 16 02/15/25 02:39 BP 114/74 02/15/25 02:39 Pulse Ox 95 02/15/25 02:39 FiO2 36 02/13/25 12:45 Intake & Output 02/14/25 02/15/25 02/15/25 18:59 06:59 18:59 Intake Total 1620 Balance 1620 Intake: Oral 1620 Other: Voiding Method Toilet # Voids 4 5 # Bowel Movements 1 - Exam Inspection reveals a benign surgical wound. There is no active bleeding or drainage. Neurovascular status is intact throughout the upper extremity with motor and sensation fully intact. Calves are soft and nontender. 2+ radial pulse and less than 2 second cap refill is present. - Labs CBC & Chem 7: 02/14/25 06:25 Labs: Abnormal Lab Results - Last 24 Hours (Table) 02/14/25 Range/Units 06:25 RBC 4.07 L (4.10-5.20) X 10*6/uL Assessment and Plan Assessment: Postop day #2 status post total replacement of right shoulder Plan: She will continue with routine postop orthopedic protocol including pain management, wound care, DVT prophylaxis and medical management. Patient continues to have pain control issues. Plan to stay until tomorrow. If pain is controlled tomorrow patient can discharge home.
--- NOTE | 2025-02-15 18:06 | P.PN ---
Subjective Progress Note Date: 02/15/25 69-year-old lady with past medical history significant for fibromyalgia, osteoarthritis, restless leg syndrome, hypothyroidism who presented to the hospital for revision reverse right total shoulder Alan arthroplasty. Patient has been following up outpatient with orthopedics for right shoulder pain. Elba johnson had right reverse shoulder arthroplasty performed on. Patient continued to have increasing pain on follow-ups. Decision was made to proceed with surgery, patient underwent right shoulder removal of the glenosphere component, baseplate component and screws and right shoulder revision to hemiarthroplasty. Postoperatively internal medicine team were consulted for medical management Objective - Vital Signs Vital signs: Vital Signs Temp 98.2 F 02/15/25 08:00 Pulse 89 02/15/25 08:00 Resp 16 02/15/25 08:00 BP 123/79 02/15/25 08:00 Pulse Ox 95 02/15/25 08:00 FiO2 36 02/13/25 12:45 Intake & Output 02/14/25 02/15/25 02/15/25 18:59 06:59 18:59 Intake Total 1620 150 Balance 1620 150 Intake: Oral 1620 150 Other: Voiding Method Toilet # Voids 4 5 # Bowel Movements 1 - Exam GENERAL: The patient is alert and oriented x3, not in any acute distress. Well developed, well nourished. HEENT: Pupils are round and equally reacting to light. EOMI. No scleral icterus. No conjunctival pallor. Normocephalic, atraumatic. No pharyngeal erythema. No thyromegaly. CARDIOVASCULAR: S1 and S2 present. No murmurs, rubs, or gallops. PULMONARY: Chest is clear to auscultation, no wheezing or crackles. ABDOMEN: Soft, nontender, nondistended, normoactive bowel sounds. No palpable organomegaly. MUSCULOSKELETAL: Right shoulder sling seen EXTREMITIES: No cyanosis, clubbing, or pedal edema. NEUROLOGICAL: Gross neurological examination did not reveal any focal deficits. SKIN: No rashes. - Labs CBC & Chem 7: 02/14/25 06:25 Labs: Abnormal Lab Results - Last 24 Hours (Table) 02/14/25 Range/Units 06:25 RBC 4.07 L (4.10-5.20) X 10*6/uL Assessment and Plan Assessment: Right shoulder pain status post right shoulder removal of the glenosphere component, baseplate component and screws and right shoulder revision to hemiarthroplasty History of anemia history of hypertension Monitor vital signs Monitor CBC Status post right shoulder removal of the glenosphere component, baseplate component and screws and right shoulder revision to hemiarthroplasty Continue pain management per orthopedics Continue DVT prophylaxis per orthopedics Aggressive bowel regimen to prevent opioid-induced constipation Resume home meds PT and OT consulted Labs and medication were reviewed.. Continue same treatment. Continue with symptomatic treatment. Resume home medication. Monitor labs and vitals. DVT and GI prophylaxis. Further recommendations as per clinical course of the patient
[2025-02-15] MEDS: SENNOSIDES-DOCUSATE SODIUM 1 EACH TAB PO SCH (19:56)
[2025-02-16 07:55] LABS: Basophils # (A) 0.02 10*3/uL (0.00-0.10); Basophils % (A) 0.4 %; Eosinophils # (A) 0.18 10*3/uL (0.04-0.35); Eosinophils % (A) 3.7 %; HGB 12.9 g/dL (12.0-15.0); Lymphocytes # (A) 1.26 10*3/uL (0.90-5.00); Lymphocytes % (A) 25.6 %; MCH 30.4 pg (27.0-32.0); MCHC 33.1 g/dL (32.0-37.0); MCV 91.8 fL (80.0-97.0); Mean Platelet Volume 10.9 fL (9.5-12.2); Monocytes # (A) 0.54 10*3/uL (0.20-1.00); Neutrophils # (A) 2.91 10*3/uL (1.80-7.70); Neutrophils % (A) 59.1 %; Platelet Count 141 10*3/uL (140-440); RBC 4.25 10*6/uL (4.10-5.20); RDW 13.9 % (11.5-14.5); WBC 4.92 10*3/uL (4.50-10.00)
[2025-02-16 08:07] VITALS: BP 117/75; PULSE 73; RESP 17; TEMP 97.7
[2025-02-16 08:26] LABS: African American GFR (CKD) >90 (>60 ml/min/1.73 sqM); Anion Gap 6 mmol/L; Blood Urea Nitrogen 10 mg/dL (7-17); Calcium 8.9 mg/dL (8.4-10.2); Carbon Dioxide 30 mmol/L (22-30); Chloride 99 mmol/L (98-107); Glucose 97 mg/dL (74-99); Non-African American GFR(CKD) >90 (>60 ml/min/1.73 sqM); Potassium 4.1 mmol/L (3.5-5.1); Sodium 135 mmol/L (137-145)
--- NOTE | 2025-02-16 08:44 | P.DS ---
Providers Attending physician: Eric Terrazas Consults: 02/13/25 12:48 Consult Physician Routine Consulting Provider: Stanton Camara Consult Reason/Comments: post op medical management Do you want consulting provider notified?: Yes Primary care physician: Stanton Camara MD Hospital Course: On 02/13/2025 patient presented to the operating room for scheduled revision right total shoulder arthroplasty, removal of hardware, and hemiarthroplasty with Dr. Eric Terrazas. Patient tolerated the procedure well. Patient was transferred to the orthopedic floor. Patient had pain as expected. Patient's pain has been controlled with oral oxycodone and tramadol. Patient states allergy to acetaminophen. Patient is seen at bedside this morning. She is postop day #3 from Revision Right TSA, removal hardware, and hemiarthroplasty. She denies numbness, tingling or calf pain. Review of systems is negative for fever, chills, chest pain, shortness of breath or other. Inspection reveals a benign surgical wound. There is no active bleeding or drainage. Neurovascular status is intact throughout the upper extremity with motor and sensation fully intact. Calves are soft and nontender. 2+ radial pulse and less than 2 second cap refill is present. Patient will discharge home today. Assessment: postop day #3 from Revision Right TSA, removal hardware, and hemiarthroplasty. Plan - Discharge Summary Discharge Rx Participant: Yes New Discharge Prescriptions: New Docusate [Colace] 100 mg PO BID #60 capsule Ondansetron [Zofran] 4 mg PO Q8HR PRN #21 tab PRN Reason: Nausea traMADol HCL 50 mg PO Q6H PRN 7 Days #28 tab PRN Reason: Pain Doxycycline Hyclate 100 mg PO BID #10 tab oxyCODONE HCL [oxyCODONE HCL (IR)] 10 mg PO Q6HR PRN #28 tab PRN Reason: Pain No Action Folic Acid 0.4 mg PO QAM Ferrous Sulfate [Iron] 325 mg PO QAM Cyanocobalamin (Vitamin B-12) [Vitamin B-12] 2 tab PO QAM Calcium Carbonate [Tums] 1,000 mg PO QID PRN tab PRN Reason: Heartburn Cholecalciferol (Vitamin D3) [Vitamin D3 (50 Mcg = 2000 Iu)] 50 mcg PO QAM Pantoprazole [Protonix] 40 mg PO AC-BRKFST PRN PRN Reason: acid reflux Vit C/E/Zn/Coppr/Lutein/Zeaxan [Preservision Areds 2 Softgel] 1 each PO BID Ibuprofen [Motrin] 800 mg PO Q6H PRN PRN Reason: Pain traMADol HCL 50 mg PO Q6H PRN PRN Reason: Pain Multivitamin [Multivitamins Adult Gummies] 1 tab PO QAM rOPINIRole HCL [Requip] 0.5 mg PO HS PRN PRN Reason: RLS Spironolactone [Aldactone] 25 mg PO QAM Discharge Medication List Multivitamin [Multivitamins Adult Gummies] 1 tab PO QAM 03/15/21 [History] rOPINIRole HCL [Requip] 0.5 mg PO HS PRN 06/19/21 [History] Folic Acid 0.4 mg PO QAM 12/29/21 [History] Ferrous Sulfate [Iron] 325 mg PO QAM 12/21/22 [History] Cyanocobalamin (Vitamin B-12) [Vitamin B-12] 2 tab PO QAM 06/22/23 [History] Calcium Carbonate [Tums] 1,000 mg PO QID PRN tab 10/09/23 [Rx] Cholecalciferol (Vitamin D3) [Vitamin D3 (50 Mcg = 2000 Iu)] 50 mcg PO QAM 12/20/24 [History] Pantoprazole [Protonix] 40 mg PO AC-BRKFST PRN 12/20/24 [History] Spironolactone [Aldactone] 25 mg PO QAM 12/20/24 [History] Vit C/E/Zn/Coppr/Lutein/Zeaxan [Preservision Areds 2 Softgel] 1 each PO BID 12/20/24 [History] Ibuprofen [Motrin] 800 mg PO Q6H PRN 02/11/25 [History] traMADol HCL 50 mg PO Q6H PRN 02/11/25 [History] Docusate [Colace] 100 mg PO BID #60 capsule 02/14/25 [Rx] Doxycycline Hyclate 100 mg PO BID #10 tab 02/14/25 [Rx] Ondansetron [Zofran] 4 mg PO Q8HR PRN #21 tab 02/14/25 [Rx] oxyCODONE HCL [oxyCODONE HCL (IR)] 10 mg PO Q6HR PRN #28 tab 02/14/25 [Rx] traMADol HCL 50 mg PO Q6H PRN 7 Days #28 tab 02/16/25 [Rx] Follow up Appointment(s)/Referral(s): Eric Terrazas MD [STAFF PHYSICIAN] - 10 Days Activity/Diet/Wound Care/Special Instructions: Non Weight Bearing right upper extremity Maintain sling May shower after 3 days if no bleeding Keep wound clean and dry. Dry dressing as needed. Take meds as directed F/U with Dr. Terrazas in office Discharge Disposition: HOME WITH HOME HEALTH SERVICES
--- NOTE | 2025-02-16 17:04 | P.PN ---
Subjective Progress Note Date: 02/16/25 69-year-old lady with past medical history significant for fibromyalgia, osteoarthritis, restless leg syndrome, hypothyroidism who presented to the hospital for revision reverse right total shoulder Alan arthroplasty. Patient has been following up outpatient with orthopedics for right shoulder pain. Elba johnson had right reverse shoulder arthroplasty performed on. Patient continued to have increasing pain on follow-ups. Decision was made to proceed with surgery, patient underwent right shoulder removal of the glenosphere component, baseplate component and screws and right shoulder revision to hemiarthroplasty. Postoperatively internal medicine team were consulted for medical management 02/16/2025 Patient is seen and evaluated in room at bedside; has been evaluated by orthopedic surgery this morning and has been cleared for discharge Vital signs are reviewed and are stable Lab review and chart review done Patient's medications reviewed; continue with current medication -Patient is stable for discharge Objective - Vital Signs Vital signs: Vital Signs Temp 97.7 F 02/16/25 07:15 Pulse 73 02/16/25 07:15 Resp 17 02/16/25 07:15 BP 117/75 02/16/25 07:15 Pulse Ox 95 02/16/25 07:15 FiO2 36 02/13/25 12:45 Intake & Output 02/15/25 02/16/25 02/16/25 18:59 06:59 18:59 Intake Total 300 Balance 300 Intake: Oral 300 Other: Voiding Method Toilet # Voids 5 5 - Exam GENERAL: The patient is alert and oriented x3, not in any acute distress. Well developed, well nourished. HEENT: Pupils are round and equally reacting to light. EOMI. No scleral icterus. No conjunctival pallor. Normocephalic, atraumatic. No pharyngeal erythema. No thyromegaly. CARDIOVASCULAR: S1 and S2 present. No murmurs, rubs, or gallops. PULMONARY: Chest is clear to auscultation, no wheezing or crackles. ABDOMEN: Soft, nontender, nondistended, normoactive bowel sounds. No palpable organomegaly. MUSCULOSKELETAL: Right shoulder sling seen EXTREMITIES: No cyanosis, clubbing, or pedal edema. NEUROLOGICAL: Gross neurological examination did not reveal any focal deficits. SKIN: No rashes. - Labs CBC & Chem 7: 02/16/25 07:32 02/16/25 07:34 Labs: Abnormal Lab Results - Last 24 Hours (Table) 02/16/25 Range/Units 07:34 Sodium 135 L (137-145) mmol/L Assessment and Plan Assessment: Right shoulder pain status post right shoulder removal of the glenosphere component, baseplate component and screws and right shoulder revision to hemiarthroplasty History of anemia history of hypertension Monitor vital signs Monitor CBC Status post right shoulder removal of the glenosphere component, baseplate component and screws and right shoulder revision to hemiarthroplasty Continue pain management per orthopedics Continue DVT prophylaxis per orthopedics Aggressive bowel regimen to prevent opioid-induced constipation Resume home meds PT and OT consulted Labs and medication were reviewed.. Continue same treatment. Continue with symptomatic treatment. Resume home medication. Monitor labs and vitals. DVT and GI prophylaxis. Further recommendations as per clinical course of the patient
== END 2025-02-16 13:09 | disposition home health service (06) ==
LOC: OR 10:27 → 4SSUR 15:02 → OR 02-16 13:09
PROVIDERS: ATTEND Orthopaedic Surgery Sports Medicine
DX: M19.011 Primary osteoarthritis, right shoulder (principal); S42.142A Displaced fracture of glenoid cavity of scapula, left shoulder, initial encounter for closed fracture; G89.18 Other acute postprocedural pain; M79.7 Fibromyalgia; G25.81 Restless legs syndrome; E03.9 Hypothyroidism, unspecified; I10 Essential (primary) hypertension; K74.60 Unspecified cirrhosis of liver; Z79.899 Other long term (current) drug therapy; Z86.73 Personal history of transient ischemic attack (TIA), and cerebral infarction without residual deficits; Z87.891 Personal history of nicotine dependence; Z98.84 Bariatric surgery status; Z96.611 Presence of right artificial shoulder joint
CPT/HCPCS: 64415; 80048; 85025 ×2; 73020; 20680; 23473; C1762; C1776; J2250; J3370; J0330; J1100; J2710; J0690 ×4; J2405; J2003; J2795; J2704; J1171; J2371 ×2; J1596